=== PATIENT | female | born 1960 | race Caucasian/White ===

== ENCOUNTER → 2017-04-23 | Outpatient (CLI) | payer MEDICARE, OTHER ==
--- NOTE | 2017-04-23 17:33 | PN ---
This patient is a 57-year-old female coming in for a CPAP compliancy check. The patient was diagnosed having mild obstructive sleep apnea with an AHI of 8.2. However, based on her increased sleep fragmentation and increased chronic hypersomnia and sleepiness with an Corsicana score of 22, I decided to give the patient a CPAP trial. She underwent a CPAP titration, and the titration itself was not absolutely successful, knowing that the patient continued to have obstructive hypopneas. At any rate, she was given an Auto CPAP unit with a minimum pressure of 6, maximum pressure of 20, and today she is coming in for a compliancy check. She was unable to tolerate the CPAP therapy over the past 30 days. She claims that the pressure is too low and it is making her suffocate. I checked her P90 pressure, and this is at 8.0. No leaks around the mask. While on treatment, her AHI is down to 1. I think the issue is the low CPAP pressure which is making this patient quite uncomfortable, affecting her overall tolerability and compliance. Note that her CPAP titration also showed significant periodic limb movements. The patient is known to have restless leg syndrome and she is currently on a combination of clonazepam and Neurontin. She is morbidly obese. Her weight is stable at 227 to 229. She is willing to restart CPAP therapy as long as the pressure is higher and she feels more comfortable. She is using medium-sized AirFit P10 nasal pillows. HER CURRENT VITALS: BP is 139/95, pulse 92, respiration 16. Corsicana score is 9. Saturation 96% on room air. Temperature 97.1. Weight is 227. GENERAL APPEARANCE: Calm, comfortable. No acute distress. HEENT: Negative for JVD. No goiter or neck masses. LUNGS: Diminished breath sounds bilaterally; otherwise clear. HEART: Sounds are regular rate and rhythm. Normal S1, S2. No murmurs. ABDOMEN: Soft and nontender. EXTREMITIES: No edema. No cyanosis or clubbing. IMPRESSION: 1. Symptomatic obstructive sleep apnea; AHI of 8.2. 2. Severe sleep fragmentation with frequent nocturnal arousals secondary to above. 3. Severe periodic limb movements/restless leg syndrome. 4. Obesity. 5. Chronic hypersomnia. Corsicana score of 22. 6. Body mass index of 40.6. 7. Aortic valve replacement. 8. Hypertension. 9. Hyperlipidemia. 10. Hypothyroidism. 11. Bipolar disorder. PLAN: 1. Will increase the CPAP pressure up to 14 cm of water. I reviewed the CPAP titration and decided to proceed with 14 cm. This was tried on this patient in the office, and she felt much more comfortable with that. 2. Continue the same mask interface, which is an AirFit nasal pillow. 3. Weight loss. 4. See me back in 4 weeks for re-evaluation to assess her compliance.
== END | disposition home or self-care (01) ==
LOC: SLEEP 13:08
PROVIDERS: ATTEND Internal Medicine Critical Care Medicine
DX: G47.33 Obstructive sleep apnea (adult) (pediatric) (principal); E66.9 Obesity, unspecified; Z68.41 Body mass index [BMI] 40.0-44.9, adult; G47.13 Recurrent hypersomnia

== ENCOUNTER → 2017-06-04 | Outpatient (CLI) | payer MEDICARE, OTHER ==
--- NOTE | 2017-06-05 05:53 | PN ---
A 57-year-old female who seen me in followup regarding compliancy for sleep apnea. As mentioned earlier, the patient was significantly symptomatic and she was having sleep fragmentation and chronic hypersomnia and sleepiness despite low severity of obstructive sleep apnea. She was found only to have an AHI of 8.2. I gave her a CPAP trial and the patient underwent CPAP titration. The titration itself was not significantly completely successful and the patient was given an auto CPAP unit with a minimum pressure of 6 and a maximum pressure of 20. Upon subsequent followup on 04/23/2017, the patient's ( ) pressure was 8. No leaks around the mass, however, the patient reported that the pressure being delivered was very low and she was having a feeling of suffocation. I re-evaluated the patient and I also checked the CPAP titration again. I put the patient on a CPAP pressure of 14 cm of water. Clinically, the patient is feeling much better. She states that the pressure adjustments have helped her be much, much more compliant and apparently she has been sleeping much better waking up alert and refreshed during the day. No feeling of suffocation or low pressure, however, the CPAP compliancy date does not reflect what the patient said. In fact, she has been contacted by the DME and another CPAP titration was requested to requalify this patient for CPAP therapy. The patient tells me that she recently moved from [place] to [facility] and during the move the patient forgot her CPAP machine and at one point it got lost by the movers and she was unable to utilize it for a total of 2 weeks. Currently, her CPAP compliance data on the machine shows an average use of 2.3 hours per night with an AHI of less than 5. Despite all this, the patient reports that she is very committed and she wants to continue the treatment and she will be sure to be using her CPAP machine if she was given the opportunity to do so. HER CURRENT VITALS: Her blood pressure 134/85, pulse 96, respirations 16, temperature 98.2, saturation 97% on room air. Weight is 222. Height is 5 feet 3 inches. GENERAL APPEARANCE: Calm and comfortable. HEENT showed crowding posterior pharynx with no goiter or neck masses. LUNGS: Clear to auscultation. HEART: Sounds regular rate and rhythm. Normal S1, S2. No S3, no S4, no murmurs. ABDOMEN: Soft, nontender. No organomegaly. EXTREMITIES: No edema, cyanosis or clubbing. IMPRESSION: 1. Symptomatic obstructive sleep apnea, AHI of 8.2. The patient has mild obstructive sleep apnea, however, she is quite symptomatic. Currently, she is on CPAP pressure of 14 cm of water. 2. Severe sleep fragmentation and frequent nocturnal arousals secondary to above. 3. Poor CPAP compliancy for the reasons mentioned above. 4. Severe periodic limb movements. 5. Chronic hypersomnia. 6 Garber score of 22. 7. Obesity. Body mass index 40.6. 8. Aortic valve replacement. 9. Hypertension. 10. Hyperlipidemia. 11. Hypothyroidism. 12. Bipolar disorder. PLAN: The patient has already been set up for another CPAP titration to requalify for CPAP use. This will be done on June 19, 2017. Meanwhile keep the patient at a pressure of 14 cm of water. No adjustments will be done today. I will see her back for a compliancy check in July after the CPAP titration has been done and completed. BEL
== END ==
LOC: SLEEP 13:44
PROVIDERS: ATTEND Internal Medicine Critical Care Medicine
DX: G47.33 Obstructive sleep apnea (adult) (pediatric) (principal); G47.61 Periodic limb movement disorder; E66.9 Obesity, unspecified; I10 Essential (primary) hypertension; E78.5 Hyperlipidemia, unspecified; E03.9 Hypothyroidism, unspecified; F31.9 Bipolar disorder, unspecified; Z95.2 Presence of prosthetic heart valve; Z68.41 Body mass index [BMI] 40.0-44.9, adult

== ENCOUNTER 2017-08-03 01:11 | Emergency (ER) | payer MEDICARE, OTHER ==
[2017-08-03 01:19] VITALS: TEMP 98.2
[2017-08-03] MEDS ORDERED: MORPHINE SULFATE 4 MG/ML SYRINGE IV STA (01:36)
--- NOTE | 2017-08-03 01:39 | ED ---
General Adult HPI - General Chief complaint: Extremity Problem,Nontraumatic Stated complaint: Possible leg clot Time Seen by Provider: 08/03/17 01:26 Source: patient, RN notes reviewed Mode of arrival: ambulatory Limitations: no limitations - History of Present Illness Initial comments: Patient is a pleasant 57-year-old female presenting to the emergency Department with right posterior leg pain. Area involvement is the right popliteal region. Patient has had discomfort gradually increased over the past year. Discomfort has been worse the past 3 days. Patient states she was diagnosed with superficial vein clots one year ago in her foot. Patient believes that extended to her calf and now are behind the calf. Patient does have a history of clotting disorder. Patient does have history of heart valve. Patient is on Coumadin. Last level was checked 3 weeks ago and was low. There was adjustments however patient has not had her level checked since he adjustments. No chest pain or dyspnea. - Related Data Home Medications Medication Instructions Recorded Confirmed Cholecalciferol [Vitamin D3] 2,000 unit PO DAILY 06/04/16 07/24/16 Fenofibrate Nanocrystallized 145 mg PO 06/04/16 07/24/16 [Tricor] Folic Acid 1 mg PO DAILY 06/04/16 07/24/16 Insulin Glargine,Hum.rec.anlog 30 unit SQ 06/04/16 07/24/16 [Lantus Solostar] Insulin Glargine,Hum.rec.anlog 35 unit SQ [facility] 06/04/16 07/24/16 [Lantus Solostar] Levothyroxine Sodium [Synthroid] 100 mcg PO [facility] 06/04/16 07/24/16 Metoprolol Tartrate [Lopressor] 25 mg PO 06/04/16 07/24/16 Metoprolol Tartrate [Lopressor] 50 mg PO [facility] 06/04/16 07/24/16 Omeprazole 20 mg PO [facility] 06/04/16 07/24/16 Venlafaxine HCl ER [Effexor XR] 300 mg PO DAILY 06/04/16 07/24/16 clonazePAM [KlonoPIN] 1 mg PO BID PRN 06/04/16 07/24/16 Atorvastatin [Lipitor] 80 mg PO 07/20/16 07/24/16 Cyclobenzaprine [Flexeril] 10 mg PO Q8H PRN 07/20/16 07/24/16 Diclofenac Sodium [Voltaren] 50 mg PO BID 07/20/16 07/24/16 Fluticasone Nasal [place] [Flonase 2 spray EA NOSTRIL DAILY 07/20/16 07/24/16 Nasal [place]] Gabapentin [Neurontin] 300 mg PO Q12H 07/20/16 07/24/16 Insulin Aspart [NovoLOG Flexpen] 20 units SQ AC-TID 07/20/16 07/24/16 Naproxen [Naprosyn] 250 mg PO Q12H PRN 07/20/16 07/24/16 traMADol HCL [Ultram] 50 - 100 mg PO Q8H PRN 07/20/16 07/24/16 Warfarin [Coumadin] 7.5 mg PO DAILY 07/27/16 07/27/16 Previous Rx's Medication Instructions Recorded Hydrocodone/Acetaminophen [[place] 2 each PO Q6HR PRN #20 tab 07/20/16 5-325] OLANZapine [ZyPREXA] 20 mg PO HS #60 tab 07/27/16 Allergies Allergy/AdvReac Type Severity Reaction Status Date / Time codeine AdvReac Nausea Verified 07/24/16 07:10 Review of Systems ROS Statement: Those systems with pertinent positive or pertinent negative responses have been documented in the HPI. ROS Other: All systems not noted in ROS Statement are negative. Constitutional: Denies: fever Eyes: Denies: eye pain ENT: Denies: ear pain Respiratory: Denies: cough Cardiovascular: Denies: chest pain Endocrine: Denies: fatigue Gastrointestinal: Denies: abdominal pain Genitourinary: Denies: dysuria Musculoskeletal: Denies: back pain Skin: Denies: rash Neurological: Denies: weakness Past Medical History Past Medical History: Diabetes Mellitus, GERD/Reflux, Hyperlipidemia, Hypertension, Thyroid Disorder Additional Past Medical History / Comment(s): Rheumatic fever when she was 11. Scar tissue remains on the heart, cyst on lt. ovary History of Any Multi-Drug Resistant Organisms: None Reported Past Surgical History: Appendectomy, Cardiac Valve Replacement Past Anesthesia/Blood Transfusion Reactions: Previous Problems w/ Anesthesia Additional Past Anesthesia/Blood Transfusion Reaction / Comment(s): Stopped breathing when a EGD was done Past Psychological History: Anxiety, Bipolar Smoking Status: Never smoker Past Alcohol Use History: None Reported Past Drug Use History: None Reported - Past Family History Father Additional Family Medical History / Comment(s): Bipolar and ETOH abuse Mother Additional Family Medical History / Comment(s): ETOH abuse General Exam Limitations: no limitations General appearance: alert, in no apparent distress Head exam: Present: atraumatic Eye exam: Present: normal appearance, PERRL ENT exam: Present: normal oropharynx Neck exam: Present: normal inspection Respiratory exam: Present: normal lung sounds bilaterally Cardiovascular Exam: Present: regular rate, normal rhythm, systolic murmur Expanded Peripheral pulses: 2+: Dorsalis Pedis (R), Dorsalis Pedis (L) GI/Abdominal exam: Present: soft. Absent: tenderness Extremities exam: Present: tenderness (Right popliteal region with tenderness) Neurological exam: Present: alert Psychiatric exam: Present: normal affect, normal mood Skin exam: Present: normal color Course Vital Signs 08/03/17 01:15 Temperature 98.2 F Pulse Rate 77 Respiratory 18 Rate Blood Pressure 137/82 O2 Sat by Pulse 95 Oximetry Medical Decision Making - Medical Decision Making Patient reevaluated and updated. Patient advised to hold Coumadin the next 2 days and have it rechecked on Saturday. - Lab Data Result diagrams: 08/03/17 02:00 08/03/17 02:00 Lab Results 08/03/17 08/03/17 08/03/17 Range/Units 02:00 02:00 02:00 WBC 5.6 (3.8-10.6) k/uL RBC 3.90 (3.80-5.40) m/uL Hgb 11.6 (11.4-16.0) gm/dL Hct 32.4 L (34.0-46.0) % MCV 83.0 (80.0-100.0) fL MCH 29.8 (25.0-35.0) pg MCHC 35.9 (31.0-37.0) g/dL RDW 14.7 (11.5-15.5) % Plt Count 247 (150-450) k/uL Neutrophils % 63 % Lymphocytes % 25 % Monocytes % 5 % Eosinophils % 2 % Basophils % 1 % Neutrophils # 3.5 (1.3-7.7) k/uL Lymphocytes # 1.4 (1.0-4.8) k/uL Monocytes # 0.3 (0-1.0) k/uL Eosinophils # 0.1 (0-0.7) k/uL Basophils # 0.1 (0-0.2) k/uL Hyperchromasia Slight PT 70.3 H (9.0-12.0) sec INR 6.9 H* (<1.2) APTT 53.2 H (22.0-30.0) sec Sodium 137 (137-145) mmol/L Potassium 3.4 L (3.5-5.1) mmol/L Chloride 102 (98-107) mmol/L Carbon Dioxide 23 (22-30) mmol/L Anion Gap 12 mmol/L BUN 16 (7-17) mg/dL Creatinine 0.90 (0.52-1.04) mg/dL Est GFR (MDRD) Af Amer >60 (>60 ml/min/1.73 sqM) Est GFR (MDRD) Non-Af >60 (>60 ml/min/1.73 sqM) Glucose 120 H (74-99) mg/dL Calcium 9.0 (8.4-10.2) mg/dL Total Bilirubin 0.4 (0.2-1.3) mg/dL AST 38 H (14-36) U/L ALT 49 (9-52) U/L Total Protein 6.7 (6.3-8.2) g/dL Albumin 4.0 (3.5-5.0) g/dL - Radiology Data Radiology results: report reviewed (Ultrasound negative for DVT. 2.6 cm collection in the popliteal soft tissue, likely Montano's cyst.) Disposition Clinical Impression: Bakers cyst Disposition: HOME SELF-CARE Condition: Stable Instructions: Bakers Cyst (ED) Additional Instructions: Please follow-up with primary care physician in the beginning of the week. Have your Coumadin level checked on Saturday. Hold Coumadin Saturday and Saturday. Return for fever, increased pain, swelling, chest pain or difficulty breathing , worsening symptoms or other concerns. Referrals: Nonstaff,Physician [REFERRING] - 1-2 days Hitesh Romero III, MD [STAFF PHYSICIAN] - 1-2 days Dahlia Katz DO [REFERRING] - 1-2 days Time of Disposition: 02:44
--- NOTE | 2017-08-03 02:08 | US ---
EXAM: US Duplex Right Lower Extremity Veins CLINICAL HISTORY: Reason: Pain TECHNIQUE: Real-time ultrasound scan of the veins of the right lower extremity with color Doppler flow, spectral waveform analysis and compression. COMPARISON: 07/20/16 FINDINGS: Deep veins: Unremarkable. No DVT in the visualized common femoral, femoral, proximal deep femoral or popliteal veins. The veins are compressible with normal color flow and augmentation. Superficial veins: Unremarkable. No thrombus in the visualized great saphenous vein. Soft tissues: Incidental note of a 2.6 cm collection in the popliteal soft tissues, likely a Montano's cyst. IMPRESSION: No acute findings.
[2017-08-03 02:15] LABS: Basophils # (A) 0.1 k/uL (0-0.2); Basophils % (A) 1 %; CH 31.3; Eosinophils # (A) 0.1 k/uL (0-0.7); Eosinophils % (A) 2 %; HCT 32.4 % (34.0-46.0); HDW 3.23; HGB 11.6 gm/dL (11.4-16.0); Hyperchromasia Slight; Luc # (Auto) 0.24; Luc % (Auto) 4; Lymphocytes # (A) 1.4 k/uL (1.0-4.8); Lymphocytes % (A) 25 %; MCH 29.8 pg (25.0-35.0); MCHC 35.9 g/dL (31.0-37.0); Mean Platelet Volume 6.8; Monocytes # (A) 0.3 k/uL (0-1.0); Monocytes % (A) 5 %; Neutrophils # (A) 3.5 k/uL (1.3-7.7); Neutrophils % (A) 63 %; RDW 14.7 % (11.5-15.5); WBC 5.6 k/uL (3.8-10.6); WBC (Perox) 5.78
[2017-08-03 02:24] LABS: Partial Thromboplastin Time 53.2 sec (22.0-30.0); Prothrombin Time 70.3 sec (9.0-12.0)
[2017-08-03 02:31] LABS: INR 6.9 (<1.2)
[2017-08-03 02:38] LABS: ALT 49 U/L (9-52); AST 38 U/L (14-36); Blood Urea Nitrogen 16 mg/dL (7-17); Carbon Dioxide 23 mmol/L (22-30); Chloride 102 mmol/L (98-107); Glucose 120 mg/dL (74-99); Non-African American GFR(MDRD) >60 (>60 ml/min/1.73 sqM); Total Bilirubin 0.4 mg/dL (0.2-1.3); Total Protein 6.7 g/dL (6.3-8.2)
[2017-08-03 02:39] LABS: Anion Gap 12 mmol/L; Potassium 3.4 mmol/L (3.5-5.1); Sodium 137 mmol/L (137-145)
[2017-08-03] MEDS ORDERED: PHYTONADIONE ORAL 5 MG/5 ML ORAL.SYRG PO STA (02:42)
[2017-08-03 02:54] LABS: Alkaline Phosphatase 88 U/L (38-126)
[2017-08-03 03:05] VITALS: BP 123/68; PULSE 71; RESP 16
== END 2017-08-03 03:05 | disposition home or self-care (01) ==
LOC: EC 01:11
DX: M71.21 Synovial cyst of popliteal space [Baker], right knee (principal); R01.1 Cardiac murmur, unspecified; E78.5 Hyperlipidemia, unspecified; I10 Essential (primary) hypertension; E11.9 Type 2 diabetes mellitus without complications; K21.9 Gastro-esophageal reflux disease without esophagitis; E07.9 Disorder of thyroid, unspecified; D68.4 Acquired coagulation factor deficiency; F41.9 Anxiety disorder, unspecified; M79.661 Pain in right lower leg; Z79.01 Long term (current) use of anticoagulants; Z79.1 Long term (current) use of non-steroidal anti-inflammatories (NSAID); Z79.4 Long term (current) use of insulin; Z79.51 Long term (current) use of inhaled steroids; Z79.899 Other long term (current) drug therapy; Z88.5 Allergy status to narcotic agent; Z95.2 Presence of prosthetic heart valve
CPT/HCPCS: 99284 ×2; 96374 ×2; 36415; 80053; 85025; 85610; 85730; 93971; J2270

== ENCOUNTER → 2017-09-30 | Outpatient (CLI) | payer MEDICARE, OTHER ==
[~2017-09-30] MED LIST: REGADENOSON 0.4 MG/5 ML SYRINGE IV ONE
--- NOTE | 2017-09-30 11:46 | ECHOF ---
Referral Reason:Z95.2 Presence of prosthetic heart valve MEASUREMENTS -------- HEIGHT: 165.1 cm WEIGHT: 99.8 kg BP: 149/89 RVIDd: 2.9 cm (< 3.3) IVSd: 1.1 cm (0.6 - 1.1) LVIDd: 5.2 cm (3.9 - 5.3) LVPWd: 1.2 cm (0.6 - 1.1) IVSs: 1.8 cm LVIDs: 3.2 cm LVPWs: 1.7 cm LAESV Index (A-L): 26.24 ml/m Ao Diam: 2.9 cm (2.0 - 3.7) LA Diam: 4.1 cm (2.7 - 3.8) MV E Lance: 1.13 m/s MV DecT: 228 ms MV A Lance: 0.54 m/s MV E/A Ratio: 2.10 AV maxP.33 mmHg AV meanP.05 mmHg RAP: 5.00 mmHg RVSP: 23.29 mmHg FINDINGS -------- Sinus rhythm. This was a technically adequate study. The left ventricular size is normal. There is borderline concentric left ventricular hypertrophy. Overall left ventricular systolic function is normal with, an EF between 55 - 60 %. The right ventricle is normal in size and function. Normal LA size by volume 22+/-6 ml/m2. RA appears enlarged. There is mild regurgitation of the bioprosthetic aortic valve. The mitral valve is normal. Mild mitral regurgitation is present. Trace tricuspid regurgitation present. Right ventricular systolic pressure is normal at < 35 mmHg. There is no evidence of pulmonary hypertension. The pulmonic valve was not well visualized. There is no pulmonic regurgitation present. The aortic root size is normal. Normal inferior vena cava with normal inspiratory collapse consistent with estimated right atrial pre ssure of 5 mmHg. There is no pericardial effusion. CONCLUSIONS -------- 1. Sinus rhythm. 2. This was a technically adequate study. 3. There is borderline concentric left ventricular hypertrophy. 4. Overall left ventricular systolic function is normal with, an EF between 55 - 60 %. 5. Normal LA size by volume 22+/-6 ml/m2. 6. RA appears enlarged. 7. There is mild regurgitation of the bioprosthetic aortic valve. 8. Mild mitral regurgitation is present. 9. Trace tricuspid regurgitation present. 10. Right ventricular systolic pressure is normal at < 35 mmHg. 11. The pulmonic valve was not well visualized. 12. There is no pulmonic regurgitation present. 13. The aortic root size is normal. 14. There is no pericardial effusion. ASSISTANT BOILER OPERATOR: Alonso Espinal RDCS
--- NOTE | 2017-09-30 12:48 | EST ---
EXERCISE STRESS AGE: 57 SEX: F HT: 5'5" WT: 220 PROTOCOL: Lexiscan Cardiolite Stress Test HEART RATE REST: 63 BLOOD PRESSURE REST: 132/82 MAXIMUM HEART RATE ACHIEVED: 89 MAXIMUM BLOOD PRESSURE: 132/82 85% MPHR: 140 100% MPHR: 164 INDICATIONS: Preoperative physical. CLINICAL INFORMATION: Baseline rhythm is sinus mechanism, rate 63, normal axis and intervals. Normal electrocardiogram. Baseline blood pressure 132/82. Patient was given an injection of Lexiscan. Electrocardiographic monitoring revealed no evidence of diagnostic ischemic ST deviation. Cardiolite was injected per protocol. CONCLUSION: 1. Nondiagnostic electrocardiograph stress testing. 2. Nuclear images will be reported separately. MMODL / IJN: [id number] /
--- NOTE | 2017-09-30 15:22 | NM ---
EXAMINATION TYPE: NM stress lexiscan cardiolite DATE OF EXAM: 09/30/2017 COMPARISON: NONE HISTORY: Prosthetic cardiac valve and chest pain TECHNIQUE: After the intravenous administration of 10.1 mCi Tc 99m Sestamibi - Cardiolite resting SP ECT images acquired 45 minutes post injection. The patient received 0.4mg Lexiscan, 30.0 mCi Tc 99m Sestamibi - Stress images obtained [address] injection FINDINGS: Review of stress and rest SPECT images demonstrates no distinct reversible perfusion abnormality. Fi xed defect is seen of the ventricular apex which may relate to physiologic apical thinning or prior i nfarct in the distribution of the left anterior descending coronary artery distally. Gated analysis s hows normal wall motion with an estimated left ventricular ejection fraction of 45 %. TID of 1.17 IMPRESSION: 1. No scintigraphic evidence for reversible ischemia. 2. Estimated left ventricular ejection fraction of 45%. 3. Transient ischemic dilatation calculated at 1.17, upper limits of normal. This could represent car diomyopathy or balanced 3 vessel ischemia. 4. Apical fixed defect that may represent prior LAD and vessel infarct sequela versus physiologic api neha thinning.
== END | disposition home or self-care (01) ==
LOC: RADNMMAIN 09:02
PROVIDERS: ATTEND Family Medicine
DX: Z48.812 Encounter for surgical aftercare following surgery on the circulatory system (principal); I08.3 Combined rheumatic disorders of mitral, aortic and tricuspid valves; Z95.2 Presence of prosthetic heart valve
CPT/HCPCS: 93017; 93306; 78452; A9500; J2785

== ENCOUNTER → 2017-10-07 | Outpatient (CLI) | payer MEDICARE, OTHER ==
[2017-10-07 10:37] LABS: ALT 57 U/L (9-52); AST 40 U/L (14-36); Alkaline Phosphatase 60 U/L (38-126); Anion Gap 8 mmol/L; Blood Urea Nitrogen 12 mg/dL (7-17); Calcium 9.1 mg/dL (8.4-10.2); Carbon Dioxide 25 mmol/L (22-30); Chloride 102 mmol/L (98-107); Cholesterol 142 mg/dL (<200); Glucose 155 mg/dL (74-99); HDL Cholesterol 43 mg/dL (40-60); Non-African American GFR(MDRD) >60 (>60 ml/min/1.73 sqM); Potassium 4.9 mmol/L (3.5-5.1); Sodium 135 mmol/L (137-145); Total Bilirubin 0.3 mg/dL (0.2-1.3); Total Protein 6.7 g/dL (6.3-8.2)
[2017-10-07 10:42] LABS: Basophils # (A) 0.1 k/uL (0-0.2); Basophils % (A) 1 %; CH 29.8; CHCM 34.8; Eosinophils # (A) 0.1 k/uL (0-0.7); Eosinophils % (A) 2 %; HCT 34.2 % (34.0-46.0); HDW 3.27; HGB 11.6 gm/dL (11.4-16.0); Luc # (Auto) 0.11; Luc % (Auto) 2; Lymphocytes # (A) 0.8 k/uL (1.0-4.8); Lymphocytes % (A) 12 %; MCH 29.1 pg (25.0-35.0); MCHC 33.8 g/dL (31.0-37.0); MCV 86.1 fL (80.0-100.0); Mean Platelet Volume 6.5; Monocytes # (A) 0.4 k/uL (0-1.0); Monocytes % (A) 6 %; Neutrophils # (A) 5.2 k/uL (1.3-7.7); Neutrophils % (A) 79 %; RBC 3.97 m/uL (3.80-5.40); RDW 13.4 % (11.5-15.5); WBC 6.6 k/uL (3.8-10.6)
[2017-10-07 10:45] LABS: Partial Thromboplastin Time 32.8 sec (22.0-30.0)
[2017-10-07 12:30] LABS: Appearance,Urine Clear (Clear); Bacteria,Urine Rare /hpf; Bilirubin,Urine Negative (Negative); Glucose,Urine (UA) Negative (Negative); Ketones,Urine Negative (Negative); Leukocyte Esterase,Urine Trace (Negative); Nitrite,Urine Negative (Negative); PH, Urine 5.5 (5.0-8.0); Particle Count 379; Protein,Urine Negative (Negative); RBC,Urine <1 /hpf (0-5); Specific Gravity,Urine 1.004 (1.001-1.035); Squamous Epithelial Cell,Urine <1 /hpf (0-4); UA Billing (MACRO vs. MICRO) MICRO; Urobilinogen,Urine <2.0 mg/dL (<2.0); WBC,Urine 3 /hpf (0-5)
[2017-10-07 13:01] LABS: INR 2.6 (<1.2); Prothrombin Time 25.1 sec (9.0-12.0)
== END | disposition home or self-care (01) ==
LOC: LABWHC1 09:15
PROVIDERS: ATTEND Family Medicine
DX: F25.8 Other schizoaffective disorders (principal)
CPT/HCPCS: 36415; 80053; 80061; 81001; 84439; 84443; 85025; 85610; 85730

== ENCOUNTER 2017-12-14 14:54 | Emergency (ER) | payer MEDICARE, OTHER ==
[2017-12-14 15:38] VITALS: BP 143/68; PULSE 92; RESP 20; TEMP 98
--- NOTE | 2017-12-14 16:39 | ED ---
General Adult HPI - General Chief complaint: Skin/Abscess/Foreign Body Stated complaint: RASH Time Seen by Provider: 12/14/17 15:47 Source: patient Mode of arrival: ambulatory Limitations: no limitations - History of Present Illness Initial comments: patient is a 57-year-old female who presents with her daughter with a chief complaint of urticaria and skin lesions. The patient has a significant past medical history of a mechanical heart valve, and diabetes. He states that this is been going on for about 3-5 days. She recently had the cats removed from her house, the cats were evaluated by a vet who states they had fleas, ticks, or mites. the patient also notes that there were mice found inside her house. She states that everybody within the household has the same symptoms. Patient states that the lesions are itchy, which he scratches them refilled fluid and drained. Patient states she is on Coumadin, and which scratches them they bleed for about an hour. - Related Data Home Medications Medication Instructions Recorded Confirmed Cholecalciferol [Vitamin D3] 2,000 unit PO DAILY 06/04/16 12/14/17 Fenofibrate Nanocrystallized 145 mg PO 06/04/16 12/14/17 [Tricor] Folic Acid 1 mg PO DAILY 06/04/16 12/14/17 Insulin Glargine,Hum.rec.anlog 30 unit SQ [facility] 06/04/16 12/14/17 [Lantus Solostar] Insulin Glargine,Hum.rec.anlog 35 unit SQ 06/04/16 12/14/17 [Lantus Solostar] Levothyroxine Sodium [Synthroid] 100 mcg PO [facility] 06/04/16 12/14/17 Metoprolol Tartrate [Lopressor] 25 mg PO 06/04/16 12/14/17 Metoprolol Tartrate [Lopressor] 50 mg PO QA 06/04/16 12/14/17 Omeprazole 20 mg PO -[facility] 06/04/16 12/14/17 Venlafaxine HCl ER [Effexor XR] 300 mg PO DAILY 06/04/16 12/14/17 clonazePAM [KlonoPIN] 1 mg PO BID PRN 06/04/16 12/14/17 Atorvastatin [Lipitor] 40 mg PO BID 07/20/16 12/14/17 Gabapentin [Neurontin] 300 mg PO Q12H 07/20/16 12/14/17 Insulin Aspart [NovoLOG Flexpen] 20 units SQ [facility] 07/20/16 12/14/17 Naproxen [Naprosyn] 250 mg PO Q12H PRN 07/20/16 12/14/17 Warfarin [Coumadin] 7.5 mg PO DIRECTED 07/27/16 12/14/17 Previous Rx's Medication Instructions Recorded OLANZapine [ZyPREXA] 20 mg PO HS #60 tab 07/27/16 Sulfamethox-Tmp 800-160Mg [Bactrim 1 tab PO Q12HR #10 tab 12/14/17 DS 800-160 mg] hydrOXYzine HCL [Atarax] 50 mg PO QID PRN #20 tab 12/14/17 Allergies Allergy/AdvReac Type Severity Reaction Status Date / Time codeine AdvReac Nausea Verified 12/14/17 16:05 Review of Systems ROS Statement: Those systems with pertinent positive or pertinent negative responses have been documented in the HPI. ROS Other: All systems not noted in ROS Statement are negative. Skin: Reports: lesions, pruritus Past Medical History Past Medical History: Diabetes Mellitus, GERD/Reflux, Hyperlipidemia, Hypertension, Thyroid Disorder Additional Past Medical History / Comment(s): Rheumatic fever when she was 11. Scar tissue remains on the heart, cyst on lt. ovary History of Any Multi-Drug Resistant Organisms: None Reported Past Surgical History: Appendectomy, Cardiac Valve Replacement Past Anesthesia/Blood Transfusion Reactions: Previous Problems w/ Anesthesia Additional Past Anesthesia/Blood Transfusion Reaction / Comment(s): Stopped breathing when a EGD was done Past Psychological History: Anxiety, Bipolar Smoking Status: Never smoker Past Alcohol Use History: None Reported Past Drug Use History: None Reported - Past Family History Father Additional Family Medical History / Comment(s): Bipolar and ETOH abuse Mother Additional Family Medical History / Comment(s): ETOH abuse General Exam Limitations: no limitations General appearance: alert, in no apparent distress Head exam: Present: atraumatic, normocephalic Eye exam: Present: normal appearance ENT exam: Present: normal exam Neck exam: Present: normal inspection Respiratory exam: Present: normal lung sounds bilaterally. Absent: respiratory distress Cardiovascular Exam: Present: regular rate, normal rhythm GI/Abdominal exam: Present: soft. Absent: distended, tenderness Rectal exam: Present: deferred Extremities exam: Present: normal inspection Back exam: Present: normal inspection Neurological exam: Present: alert, oriented X3 Psychiatric exam: Present: normal affect, normal mood Skin exam: Present: warm, dry, intact, other (patient has small lesions over her upper, and lower extremities. There is some lesions on her back and mid section. These lesions are consistent with bug bites. There are no lesions that appear to be acutely infected. ) Course Vital Signs 12/14/17 15:36 Temperature 98.0 F Pulse Rate 92 Respiratory 20 Rate Blood Pressure 143/68 O2 Sat by Pulse 99 Oximetry Medical Decision Making - Medical Decision Making patient presents with a chief complaint of skin lesions and urticaria. History of physical examination are most consistent with bug bites likely from the catheter guinea pig that live inside her house. The patient further states that all the people inside of her house have the same symptoms. At this time, no lesions look acutely infected. Given the fact that the patient has a mechanical heart valve she'll be treated with Bactrim for 5 days. She was instructed on cleaning all surfaces with bleach, and wash all linens and clothes. The patient was further instructed to contact an opera singer. At this time, patient is stable for discharge and outpatient management. She is instructed to follow-up with her primary care doctor or return to the emergency department if her symptoms worsen or change. Disposition Clinical Impression: Bug bite Disposition: HOME SELF-CARE Condition: Good Instructions: Insect Bite or Sting (ED) Referrals: Cesar Betancourt Jr, DO [Primary Care Provider] - 1-2 days
== END 2017-12-14 16:53 | disposition home or self-care (01) ==
LOC: EC 14:54
DX: S60.562A Insect bite (nonvenomous) of left hand, initial encounter (principal); S60.561A Insect bite (nonvenomous) of right hand, initial encounter; S80.862A Insect bite (nonvenomous), left lower leg, initial encounter; S80.861A Insect bite (nonvenomous), right lower leg, initial encounter; E11.9 Type 2 diabetes mellitus without complications; K21.9 Gastro-esophageal reflux disease without esophagitis; E78.5 Hyperlipidemia, unspecified; I10 Essential (primary) hypertension; E07.9 Disorder of thyroid, unspecified; F31.9 Bipolar disorder, unspecified; F41.9 Anxiety disorder, unspecified; Z88.5 Allergy status to narcotic agent; Z79.4 Long term (current) use of insulin; Z79.01 Long term (current) use of anticoagulants; Z79.899 Other long term (current) drug therapy; W57.XXXA Bitten or stung by nonvenomous insect and other nonvenomous arthropods, initial encounter
CPT/HCPCS: 99282

== ENCOUNTER 2018-07-31 12:07 | Emergency (ER) | payer MEDICARE, OTHER ==
--- NOTE | 2018-07-31 13:33 | XR ---
EXAMINATION TYPE: XR chest 2V DATE OF EXAM: 07/31/2018 COMPARISON: 06/05/2012 HISTORY: 58-year-old female with chest pain TECHNIQUE: PA and lateral views FINDINGS: Median sternotomy wires are present. Prosthetic cardiac valve. Heart mildly enlarged. Mild elongation thoracic aorta. Diffuse interstitial prominence slightly increased. No consolidation or pleural effu marie. IMPRESSION: Mild cardiomegaly and mild interstitial prominence. Correlate to exclude mild pulmonary vascular alber estion.
[2018-07-31 13:38] LABS: Basophils % (A) 1 %; Eosinophils # (A) 0.1 k/uL (0-0.7); Eosinophils % (A) 1 %; HCT 33.3 % (34.0-46.0); HGB 11.4 gm/dL (11.4-16.0); Lymphocytes # (A) 0.7 k/uL (1.0-4.8); Lymphocytes % (A) 9 %; MCH 28.7 pg (25.0-35.0); MCHC 34.2 g/dL (31.0-37.0); Mean Platelet Volume 6.9; Monocytes # (A) 0.3 k/uL (0-1.0); Monocytes % (A) 3 %; Neutrophils # (A) 6.3 k/uL (1.3-7.7); Neutrophils % (A) 85 %; Platelet Count 227 k/uL (150-450); RBC 3.96 m/uL (3.80-5.40); WBC 7.4 k/uL (3.8-10.6)
--- NOTE | 2018-07-31 13:45 | ED ---
General Adult HPI - General Chief complaint: Chest Pain Stated complaint: CHEST PAIN Time Seen by Provider: 07/31/18 12:24 Source: patient, RN notes reviewed, old records reviewed Mode of arrival: wheelchair Limitations: no limitations - History of Present Illness Initial comments: This is a 58-year-old female the ER for evaluation. Patient comes in for evaluation regarding chest pain, chest pain is nonspecific. Patient does admit to very much anxiety. Patient states that these are revolves around a history of a mechanical heart valve issue. She is concern for something bad happening in her chest she had chest pain started after doing some activity earlier last night into today. Otherwise patient is relatively asymptomatic currently she is just more anxious - Related Data Home Medications Medication Instructions Recorded Confirmed Cholecalciferol [Vitamin D3] 2,000 unit PO DAILY 06/04/16 07/31/18 Fenofibrate Nanocrystallized 145 mg PO HS 06/04/16 07/31/18 [Tricor] Folic Acid 1 mg PO DAILY 06/04/16 07/31/18 Levothyroxine Sodium [Synthroid] 100 mcg PO AC-BRKFST 06/04/16 07/31/18 Omeprazole 20 mg PO AC-BRKFST 06/04/16 07/31/18 Venlafaxine HCl ER [Effexor XR] 300 mg PO DAILY 06/04/16 07/31/18 Atorvastatin [Lipitor] 80 mg PO DAILY 07/20/16 07/31/18 Insulin Aspart [NovoLOG Flexpen] 25 units SQ AC-TID 07/20/16 07/31/18 Insulin Glargine,Hum.rec.anlog 35 unit SQ BID 07/31/18 07/31/18 [Basaglar Kwikpen U-100] OLANZapine 20 mg PO DAILY 07/31/18 07/31/18 Allergies Allergy/AdvReac Type Severity Reaction Status Date / Time codeine Allergy Rash/Hives Verified 07/31/18 13:47 Review of Systems ROS Statement: Those systems with pertinent positive or pertinent negative responses have been documented in the HPI. ROS Other: All systems not noted in ROS Statement are negative. Past Medical History Past Medical History: Diabetes Mellitus, GERD/Reflux, Hyperlipidemia, Hypertension, Thyroid Disorder Additional Past Medical History / Comment(s): Rheumatic fever when she was 11. Scar tissue remains on the heart, cyst on lt. ovary History of Any Multi-Drug Resistant Organisms: None Reported Past Surgical History: Appendectomy, Cardiac Valve Replacement Past Anesthesia/Blood Transfusion Reactions: Previous Problems w/ Anesthesia Additional Past Anesthesia/Blood Transfusion Reaction / Comment(s): Stopped breathing when a EGD was done Past Psychological History: Anxiety, Bipolar Smoking Status: Never smoker Past Alcohol Use History: None Reported Past Drug Use History: None Reported - Past Family History Father Additional Family Medical History / Comment(s): Bipolar and ETOH abuse Mother Additional Family Medical History / Comment(s): ETOH abuse General Exam Limitations: no limitations General appearance: alert, in no apparent distress Head exam: Present: atraumatic, normocephalic, normal inspection Eye exam: Present: normal appearance, PERRL, EOMI. Absent: scleral icterus, conjunctival injection, periorbital swelling ENT exam: Present: normal exam, mucous membranes moist Neck exam: Present: normal inspection. Absent: tenderness, meningismus, lymphadenopathy Respiratory exam: Present: normal lung sounds bilaterally. Absent: respiratory distress, wheezes, rales, rhonchi, stridor Cardiovascular Exam: Present: regular rate, normal rhythm, normal heart sounds. Absent: systolic murmur, diastolic murmur, rubs, gallop, clicks GI/Abdominal exam: Present: soft, normal bowel sounds. Absent: distended, tenderness, guarding, rebound, rigid Extremities exam: Present: normal inspection, full ROM, normal capillary refill. Absent: tenderness, pedal edema, joint swelling, calf tenderness Back exam: Present: normal inspection Neurological exam: Present: alert, oriented X3, CN II-XII intact Psychiatric exam: Present: normal affect, normal mood Skin exam: Present: warm, dry, intact, normal color. Absent: rash Course Vital Signs 07/31/18 07/31/18 07/31/18 12:12 13:10 13:23 Temperature 98.4 F 98.7 F Pulse Rate 88 86 Pulse Rate [ 86 Left Pulse Oximetery] Respiratory 18 17 18 Rate Blood Pressure 133/89 130/81 O2 Sat by Pulse 96 96 Oximetry 07/31/18 07/31/18 15:07 17:11 Temperature 96.1 F L Pulse Rate 89 62 Pulse Rate [ Left Pulse Oximetery] Respiratory 18 16 Rate Blood Pressure 118/76 126/79 O2 Sat by Pulse 94 L 99 Oximetry EKG Findings - EKG Comments: EKG Findings:: EKG shows sinus rhythm rate of 87, WI 154, QRS 78, QTc 459 Medical Decision Making - Medical Decision Making 58 female the ER for evaluation presents today for evaluation regards to chest pain nonspecific chest pain chest and a sterile doing some activity prior. Patient has negative CTA. Patient can be discharged home - Lab Data Result diagrams: 07/31/18 13:18 07/31/18 13:18 Lab Results 07/31/18 07/31/18 07/31/18 Range/Units 13:18 13:18 13:18 WBC 7.4 (3.8-10.6) k/uL RBC 3.96 (3.80-5.40) m/uL Hgb 11.4 (11.4-16.0) gm/dL Hct 33.3 L (34.0-46.0) % MCV 84.0 (80.0-100.0) fL MCH 28.7 (25.0-35.0) pg MCHC 34.2 (31.0-37.0) g/dL RDW 14.0 (11.5-15.5) % Plt Count 227 (150-450) k/uL Neutrophils % 85 % Lymphocytes % 9 % Monocytes % 3 % Eosinophils % 1 % Basophils % 1 % Neutrophils # 6.3 (1.3-7.7) k/uL Lymphocytes # 0.7 L (1.0-4.8) k/uL Monocytes # 0.3 (0-1.0) k/uL Eosinophils # 0.1 (0-0.7) k/uL Basophils # 0.0 (0-0.2) k/uL PT (9.0-12.0) sec INR (<1.2) APTT (22.0-30.0) sec Sodium 140 (137-145) mmol/L Potassium 4.1 (3.5-5.1) mmol/L Chloride 106 (98-107) mmol/L Carbon Dioxide 23 (22-30) mmol/L Anion Gap 11 mmol/L BUN 23 H (7-17) mg/dL Creatinine 0.83 (0.52-1.04) mg/dL Est GFR (CKD-EPI)AfAm >90 (>60 ml/min/1.73 sqM) Est GFR (CKD-EPI)NonAf 80 (>60 ml/min/1.73 sqM) Glucose 216 H (74-99) mg/dL Calcium 8.7 (8.4-10.2) mg/dL Magnesium 1.3 L (1.6-2.3) mg/dL Total Bilirubin 0.4 (0.2-1.3) mg/dL AST 36 (14-36) U/L ALT 37 (9-52) U/L Alkaline Phosphatase 65 (38-126) U/L Total Creatine Kinase 156 H (30-135) U/L CK-MB (CK-2) 1.8 (0.0-2.4) ng/mL CK-MB (CK-2) Rel Index 1.2 Troponin I <0.012 (0.000-0.034) ng/mL NT-Pro-B Natriuret Pep pg/mL Total Protein 6.8 (6.3-8.2) g/dL Albumin 3.9 (3.5-5.0) g/dL Lipase 210 (23-300) U/L 07/31/18 07/31/18 Range/Units 13:18 13:18 WBC (3.8-10.6) k/uL RBC (3.80-5.40) m/uL Hgb (11.4-16.0) gm/dL Hct (34.0-46.0) % MCV (80.0-100.0) fL MCH (25.0-35.0) pg MCHC (31.0-37.0) g/dL RDW (11.5-15.5) % Plt Count (150-450) k/uL Neutrophils % % Lymphocytes % % Monocytes % % Eosinophils % % Basophils % % Neutrophils # (1.3-7.7) k/uL Lymphocytes # (1.0-4.8) k/uL Monocytes # (0-1.0) k/uL Eosinophils # (0-0.7) k/uL Basophils # (0-0.2) k/uL PT 57.6 H (9.0-12.0) sec INR 6.3 H* (<1.2) APTT 46.1 H (22.0-30.0) sec Sodium (137-145) mmol/L Potassium (3.5-5.1) mmol/L Chloride (98-107) mmol/L Carbon Dioxide (22-30) mmol/L Anion Gap mmol/L BUN (7-17) mg/dL Creatinine (0.52-1.04) mg/dL Est GFR (CKD-EPI)AfAm (>60 ml/min/1.73 sqM) Est GFR (CKD-EPI)NonAf (>60 ml/min/1.73 sqM) Glucose (74-99) mg/dL Calcium (8.4-10.2) mg/dL Magnesium (1.6-2.3) mg/dL Total Bilirubin (0.2-1.3) mg/dL AST (14-36) U/L ALT (9-52) U/L Alkaline Phosphatase (38-126) U/L Total Creatine Kinase (30-135) U/L CK-MB (CK-2) (0.0-2.4) ng/mL CK-MB (CK-2) Rel Index Troponin I (0.000-0.034) ng/mL NT-Pro-B Natriuret Pep 330 pg/mL Total Protein (6.3-8.2) g/dL Albumin (3.5-5.0) g/dL Lipase (23-300) U/L - Radiology Data Radiology results: report reviewed (Chest x-ray CT is negative), image reviewed Disposition Clinical Impression: Chest pain, Bipolar disorder with psychotic features Disposition: HOME SELF-CARE Condition: Good Instructions: Chest Pain (ED) Is patient prescribed a controlled substance at d/c from ED?: No Referrals: Cesar Betancourt Jr, [Primary Care Provider] - 1-2 days
[2018-07-31 13:47] LABS: Partial Thromboplastin Time 46.1 sec (22.0-30.0); Prothrombin Time 57.6 sec (9.0-12.0)
[2018-07-31 13:53] LABS: INR 6.3 (<1.2)
[2018-07-31 13:57] LABS: Creatine Kinase 156 U/L (30-135)
[2018-07-31 14:09] LABS: Creatine Kinase MB 1.8 ng/mL (0.0-2.4); Troponin I <0.012 ng/mL (0.000-0.034)
[2018-07-31 15:03] LABS: ALT 37 U/L (9-52); AST 36 U/L (14-36); Albumin 3.9 g/dL (3.5-5.0); Alkaline Phosphatase 65 U/L (38-126); Anion Gap 11 mmol/L; Blood Urea Nitrogen 23 mg/dL (7-17); Calcium 8.7 mg/dL (8.4-10.2); Carbon Dioxide 23 mmol/L (22-30); Chloride 106 mmol/L (98-107); Glucose 216 mg/dL (74-99); Lipase 210 U/L (23-300); Magnesium 1.3 mg/dL (1.6-2.3); Potassium 4.1 mmol/L (3.5-5.1); Sodium 140 mmol/L (137-145); Total Bilirubin 0.4 mg/dL (0.2-1.3); Total Protein 6.8 g/dL (6.3-8.2)
[2018-07-31 15:09] VITALS: TEMP 96.1
--- NOTE | 2018-07-31 15:45 | CT ---
EXAMINATION TYPE: CT angio chest DATE OF EXAM: 07/31/2018 COMPARISON: CT chest 06/02/2012, chest x-ray 07/31/2018 HISTORY: Mid to left sided chest pain with history of valve replacement CT DLP: 556 mGycm Automated exposure control for dose reduction was used. CONTRAST: CTA scan of the thorax is performed with IV Contrast, patient injected with 100 mL of Isovue 370, pul monary embolism protocol. MIP images are created and reviewed. 3D reconstructed images are created on an independent workstation and reviewed. FINDINGS: Patient is post median sternotomy. LUNGS: The lungs are grossly clear, there is no concerning parenchymal mass or nodule identified. Mi ld interstitial prominence is noted. Interlobular septal pleural septal lines are noted There is no p leural effusion or pneumothorax seen. The tracheobronchial tree is patent. AORTA: Patient is posterior without replacement.. MEDIASTINUM: There is satisfactory enhancement of the pulmonary artery and its branches, there is no CT evidence for pulmonary embolism. There are no greater than 1 cm hilar or mediastinal lymph nodes. No pericardial effusion is seen. OTHER: The liver shows low attenuation suggestive of hepatic steatosis, liver may be enlarged. IMPRESSION: NO EVIDENT PULMONARY EMBOLISM. CORRELATE FOR HEPATIC STEATOSIS, POSSIBLE HEPATOMEGALY. POSTOP CHANGES . ADDITIONAL FINDINGS ABOVE.
[2018-07-31 17:12] VITALS: BP 126/79; PULSE 62; RESP 16
== END 2018-07-31 17:10 | disposition home or self-care (01) ==
LOC: EC 12:07
DX: F31.9 Bipolar disorder, unspecified (principal); R07.9 Chest pain, unspecified; F41.9 Anxiety disorder, unspecified; E11.9 Type 2 diabetes mellitus without complications; K21.9 Gastro-esophageal reflux disease without esophagitis; E78.5 Hyperlipidemia, unspecified; I10 Essential (primary) hypertension; E07.9 Disorder of thyroid, unspecified; Z81.8 Family history of other mental and behavioral disorders; Z95.2 Presence of prosthetic heart valve; Z79.899 Other long term (current) drug therapy; Z79.4 Long term (current) use of insulin; Z88.5 Allergy status to narcotic agent
CPT/HCPCS: 36415; 83880; 80053; 82550; 82553; 83690; 83735; 84484; 85025; 85610; 85730; 71046; 71275; 99285; Q9967

== ENCOUNTER → 2018-09-23 | Outpatient (CLI) | payer MEDICARE, OTHER ==
--- NOTE | 2018-09-23 08:06 | US ---
EXAMINATION TYPE: US pelvic complete DATE OF EXAM: 09/23/2018 COMPARISON: CT CLINICAL HISTORY: R10.2 Pelvic pain. Pt states LLQ pain x 3 years, postmenopausal x 10 years, not on HRT's TECHNIQUE: Transabdominal (TA). Transabdominal sonographic images of the pelvis were acquired. Date of LMP: 10 years ago EXAM MEASUREMENTS: Uterus: 7.9 x 3.9 x 4.5 cm Endometrial Stripe: Right horn= 0.2 cm, Left Horn= 0.2 cm Right Ovary: 1.5 x 0.8 x 1.4 cm Left Ovary: 1.4 x 0.9 x 1.2 cm 1. Uterus: Anteverted Possible uterine anomaly with 2 endometrial cavities seen on image 13, other osborne appeared wnl 2. Endometrium: Right and Left horns appeared appropriate thickness 3. Right Ovary: wnl 4. Left Ovary: wnl 5. Bilateral Adnexa: wnl 6. Posterior cul-de-sac: wnl No abnormality visualized to account for pt's symptoms/ Incidental finding irregular posterior blad esha wall IMPRESSION: 1. 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 Pelvic MRI or hysterosalpingogram could further assess these findings. 2. No abnormal endometrial thickening or adnexal mass.
== END ==
LOC: RADUSWWP 07:07
PROVIDERS: ATTEND Family Medicine
DX: R10.2 Pelvic and perineal pain (principal); Z88.5 Allergy status to narcotic agent
CPT/HCPCS: 76856

== ENCOUNTER → 2018-09-29 | Outpatient (CLI) | payer MEDICARE, OTHER ==
--- NOTE | 2018-09-29 15:27 | FL ---
EXAMINATION TYPE: FL hysterosalpingography DATE OF EXAM: 09/29/2018 HISTORY: Bicornuate uterus Examination was not performed. Bicornuate uterus is noted on ultrasound. Hysterosalpingography is res erved for patients of childbearing age. MRI of the pelvis is recommended given patient's history of p ain and family history of cervical cancer. IMPRESSION: MRI of the pelvis is advised.
== END ==
LOC: RADFLWHC 13:28
PROVIDERS: ATTEND Family Medicine
DX: Z53.9 Procedure and treatment not carried out, unspecified reason (principal)

== ENCOUNTER → 2018-10-21 | Outpatient (CLI) | payer MEDICARE, OTHER ==
--- NOTE | 2018-10-21 12:04 | CT ---
EXAMINATION TYPE: CT pelvis wo con DATE OF EXAM: 10/21/2018 COMPARISON: Ultrasound dated 09/23/2018 HISTORY: Congenital abnormality of the uterus. Automated exposure control for dose reduction was used. Unenhanced CT of the pelvis was performed. The lack of contrast limits evaluation. GI contrast was ut ilized. FINDINGS: The uterus is not enlarged and measures 7.7 x 3.6 cm. No uterine mass is identified. Endometrial stru ctures are not appropriately characterized on this modality. No evidence for ovarian or adnexal mass at this time. Ovaries appear symmetric. No evidence for free fluid. Gastrointestinal tract is unremar kable. No distinct masses are seen. IMPRESSION: NO DISTINCT ABNORMALITY APPRECIATED.
== END | disposition home or self-care (01) ==
LOC: RADCTMAIN 09:21
PROVIDERS: ATTEND Family Medicine
DX: R93.89 Abnormal findings on diagnostic imaging of other specified body structures (principal); Z88.5 Allergy status to narcotic agent
CPT/HCPCS: 72192

== ENCOUNTER → 2018-11-06 | Outpatient (CLI) | payer MEDICARE, OTHER ==
[2018-11-06 16:05] LABS: Albumin 4.1 g/dL (3.80-4.90); Albumin/Globulin Ratio 2.28 (1.20-2.10); Anion Gap 6.8 mmol/L (4.00-12.00); Calcium 8.6 mg/dL (8.7-10.3); Carbon Dioxide 25.2 mmol/L (21.6-31.8); Globulin 1.8 g/dL (2.1-3.7); LDL Cholesterol,Calculated 17.2 mg/dL (0.0-131.0); Potassium 4.9 mmol/L (3.5-5.5); Total Bilirubin 0.2 mg/dL (0.3-1.2); Total Protein 5.9 g/dL (6.2-8.2); VLDL Calculation 74.8 mg/dL (5.00-40.00)
== END | disposition home or self-care (01) ==
LOC: LABWHC1 08:27
PROVIDERS: ATTEND Internal Medicine Interventional Cardiology
DX: E78.2 Mixed hyperlipidemia (principal)
CPT/HCPCS: 36415; 80053; 80061

== ENCOUNTER 2019-04-18 15:34 | Emergency (ER) | payer MEDICARE, OTHER ==
[2019-04-18 15:41] VITALS: RESP 16; TEMP 98.5
--- NOTE | 2019-04-18 15:46 | ED ---
General Adult HPI - General Chief complaint: Dizziness Stated complaint: Dizziness Time Seen by Provider: 04/18/19 15:46 Source: patient Mode of arrival: wheelchair Limitations: no limitations - History of Present Illness Initial comments: Linda is a 58-year-old female presents the emergency department today for evaluation of dizziness and numbness of the left side of her body. Patient reports that sometime around February 02 she began having dizziness she thought it was just vertigo which she has experienced in the past so she can ordered. She reports she then felt that the left side of her body was intermittently going numb she was evaluated at [facility] and there is concerned that she may have a stroke and she was encouraged to come to the emergency department. Patient admits that at that time the [facility] physician actually contacted the emergency department for transfer patient volunteered to drive herself but then chose not to come to the emergency department or follow-up. Patient also felt that she was having learning of her vision so she followed up at [facility] and was advised that her visual exam was normal but that she needed further evaluation for her other complaints. Again she refused to come to the emergency department. Patient then followed up with her primary care physician who again expresses concern that the patient may have had a stroke and contacted the emergency department to transfer patient but patient again refused to come to the emergency department. Patient reports that now it has been too weak she continues to have dizziness which is worse with tender head and she also feels that her entire left side of her body from her scalp down her face arm and leg are numb or have decreased sensation. Patient reports that the symptoms have not changed today she just decided to have been long enough that she needed be evaluated. - Related Data Home Medications Medication Instructions Recorded Confirmed Fenofibrate Nanocrystallized 145 mg PO HS 06/04/16 04/18/19 [Tricor] Levothyroxine Sodium [Synthroid] 100 mcg PO AC-BRKFST 06/04/16 04/18/19 Venlafaxine HCl ER [Effexor XR] 300 mg PO DAILY 06/04/16 04/18/19 Atorvastatin [Lipitor] 80 mg PO DAILY 07/20/16 04/18/19 Insulin Aspart [NovoLOG Flexpen] 10 units SQ AC-TID 07/20/16 04/18/19 Insulin Glargine,Hum.rec.anlog 35 unit SQ BID 07/31/18 04/18/19 [Basaglar Dinorapen U-100] OLANZapine 20 mg PO DAILY 07/31/18 04/18/19 Metoprolol Succinate (ER) [Toprol 100 mg PO DAILY 04/18/19 04/18/19 Xl] Omeprazole [PriLOSEC] 10 mg PO DAILY 04/18/19 04/18/19 Pioglitazone [Actos] 15 mg PO DAILY 04/18/19 04/18/19 Vitamin E 1,000 unit PO DAILY 04/18/19 04/18/19 Warfarin Sodium [Coumadin] 7.5 mg PO SUMOTUWEFRSA 04/18/19 04/18/19 Warfarin [Coumadin] 5 mg PO TH 04/18/19 04/18/19 clonazePAM [KlonoPIN] 1 mg PO DAILY PRN 04/18/19 04/18/19 metFORMIN HCL 1,000 mg PO BID 04/18/19 04/18/19 Allergies Allergy/AdvReac Type Severity Reaction Status Date / Time codeine AdvReac Nausea & Verified 04/18/19 15:56 Vomiting Review of Systems ROS Statement: Those systems with pertinent positive or pertinent negative responses have been documented in the HPI. ROS Other: All systems not noted in ROS Statement are negative. Past Medical History Past Medical History: Diabetes Mellitus, GERD/Reflux, Hyperlipidemia, Hypertension, Thyroid Disorder Additional Past Medical History / Comment(s): Rheumatic fever when she was 11. Scar tissue remains on the heart, cyst on lt. ovary History of Any Multi-Drug Resistant Organisms: None Reported Past Surgical History: Appendectomy, Cardiac Valve Replacement Past Anesthesia/Blood Transfusion Reactions: Previous Problems w/ Anesthesia Additional Past Anesthesia/Blood Transfusion Reaction / Comment(s): Stopped breathing when a EGD was done Past Psychological History: Anxiety, Bipolar Smoking Status: Never smoker Past Alcohol Use History: None Reported Past Drug Use History: None Reported - Past Family History Father Additional Family Medical History / Comment(s): Bipolar and ETOH abuse Mother Additional Family Medical History / Comment(s): ETOH abuse General Exam - General Exam Comments Initial Comments: GENERAL: Patient is well-developed and well-nourished. Patient is nontoxic and well- hydrated and is in no distress. HENT: Normocephalic, Atraumatic. Neck is soft and supple. No significant lymphadenopathy is noted. Oropharynx is clear. Moist mucous membranes. Neck has full range of motion without eliciting any pain. EYES: The sclera were anicteric and conjunctiva were pink and moist. Extraocular movements were intact and pupils were equal round and reactive to light. Eyelids were unremarkable. PULMONARY: Unlabored respirations. Good breath sounds bilaterally. No audible rales r honchi or wheezing was noted. CARDIOVASCULAR: There is a regular rate and rhythm without any murmurs gallops or rubs. ABDOMEN: Soft and nontender with normal bowel sounds. SKIN: Skin is clear with no lesions or rashes and otherwise unremarkable. NEUROLOGIC: Patient is alert and oriented x3. Cranial nerves II through XII are grossly intact. Motor and sensory are also intact. Normal speech, volume and content. Symmetrical smile. MUSCULOSKELETAL: Normal extremities with adequate strength and full range of motion. No lower extremity swelling or edema. No calf tenderness. LYMPHATICS: No significant lymphadenopathy is noted PSYCHIATRIC: Normal psychiatric evaluation Limitations: no limitations Course Vital Signs 04/18/19 04/18/19 04/18/19 15:38 16:53 18:00 Temperature 98.5 F Pulse Rate 78 70 Respiratory 16 16 16 Rate Blood Pressure 162/105 129/84 O2 Sat by Pulse 97 97 Oximetry EKG Findings - EKG Comments: EKG Findings:: EKG obtained at 437, rate is 75 rhythm is sinus is normal axis, normal intervals, AR 160, QRS 82, QTc 414, QTC 462 there are no acute ST elevations or depressions no evidence of acute ischemia infarction or arrhythmia. Medical Decision Making - Medical Decision Making Patient was seen and evaluated history was obtained from the patient and sister at bedside Patient with 2 weeks of left sided body numbness and decreased sensation as well as intermittent vertigo. I discussed with the patient that we will obtain a CT but she will likely need an MRI for further evaluation of possible stroke. Patient states that she cannot have an MRI due to having a titanium heart valve she reports she had an MRI of her knee and it caused her to bleed inside of her heart. Labs with chronic anemia no other significant abnormalities. CT head and CT angiography of the head and neck with no acute findings. These results were discussed with the patient, advised the patient she needs to be evaluated by neurology for further evaluation. At this time patient would prefer to be discharged home and have outpatient evaluation as her symptoms of been present for 2 weeks and she does not want to stay for an MRI. All questions pertaining care were answered return parameters were discussed the patient was discharged home in stable condition. - Lab Data Result diagrams: 04/18/19 16:20 04/18/19 16:20 Lab Results 04/18/19 04/18/19 04/18/19 Range/Units 16:20 16:20 16:20 WBC 6.0 (3.8-10.6) k/uL RBC 3.91 (3.80-5.40) m/uL Hgb 11.1 L (11.4-16.0) gm/dL Hct 31.5 L (34.0-46.0) % MCV 80.7 (80.0-100.0) fL MCH 28.4 (25.0-35.0) pg MCHC 35.2 (31.0-37.0) g/dL RDW 13.5 (11.5-15.5) % Plt Count 287 (150-450) k/uL Neutrophils % 66 % Lymphocytes % 24 % Monocytes % 6 % Eosinophils % 1 % Basophils % 1 % Neutrophils # 4.0 (1.3-7.7) k/uL Lymphocytes # 1.4 (1.0-4.8) k/uL Monocytes # 0.3 (0-1.0) k/uL Eosinophils # 0.1 (0-0.7) k/uL Basophils # 0.1 (0-0.2) k/uL PT 20.6 H (9.0-12.0) sec INR 2.1 H (<1.2) Sodium 135 L (137-145) mmol/L Potassium 3.9 (3.5-5.1) mmol/L Chloride 100 (98-107) mmol/L Carbon Dioxide 27 (22-30) mmol/L Anion Gap 8 mmol/L BUN 18 H (7-17) mg/dL Creatinine 0.95 (0.52-1.04) mg/dL Est GFR (CKD-EPI)AfAm 78 (>60 ml/min/1.73 sqM) Est GFR (CKD-EPI)NonAf 68 (>60 ml/min/1.73 sqM) Glucose 123 H (74-99) mg/dL Calcium 9.4 (8.4-10.2) mg/dL Total Bilirubin 0.3 (0.2-1.3) mg/dL AST 26 (14-36) U/L ALT 23 (9-52) U/L Alkaline Phosphatase 65 (38-126) U/L Troponin I (0.000-0.034) ng/mL Total Protein 6.7 (6.3-8.2) g/dL Albumin 4.2 (3.5-5.0) g/dL Urine Color Urine Appearance (Clear) Urine pH (5.0-8.0) Ur Specific [place] (1.001-1.035) Urine Protein (Negative) Urine Glucose (UA) (Negative) Urine Ketones (Negative) Urine Blood (Negative) Urine Nitrite (Negative) Urine Bilirubin (Negative) Urine Urobilinogen (<2.0) mg/dL Ur Leukocyte Esterase (Negative) Urine WBC (0-5) /hpf Urine Bacteria (None) /hpf 04/18/19 04/18/19 Range/Units 16:20 16:20 WBC (3.8-10.6) k/uL RBC (3.80-5.40) m/uL Hgb (11.4-16.0) gm/dL Hct (34.0-46.0) % MCV (80.0-100.0) fL MCH (25.0-35.0) pg MCHC (31.0-37.0) g/dL RDW (11.5-15.5) % Plt Count (150-450) k/uL Neutrophils % % Lymphocytes % % Monocytes % % Eosinophils % % Basophils % % Neutrophils # (1.3-7.7) k/uL Lymphocytes # (1.0-4.8) k/uL Monocytes # (0-1.0) k/uL Eosinophils # (0-0.7) k/uL Basophils # (0-0.2) k/uL PT (9.0-12.0) sec INR (<1.2) Sodium (137-145) mmol/L Potassium (3.5-5.1) mmol/L Chloride (98-107) mmol/L Carbon Dioxide (22-30) mmol/L Anion Gap mmol/L BUN (7-17) mg/dL Creatinine (0.52-1.04) mg/dL Est GFR (CKD-EPI)AfAm (>60 ml/min/1.73 sqM) Est GFR (CKD-EPI)NonAf (>60 ml/min/1.73 sqM) Glucose (74-99) mg/dL Calcium (8.4-10.2) mg/dL Total Bilirubin (0.2-1.3) mg/dL AST (14-36) U/L ALT (9-52) U/L Alkaline Phosphatase (38-126) U/L Troponin I <0.012 (0.000-0.034) ng/mL Total Protein (6.3-8.2) g/dL Albumin (3.5-5.0) g/dL Urine Color Yellow Urine Appearance Clear (Clear) Urine pH 5.5 (5.0-8.0) Ur Specific [place] 1.009 (1.001-1.035) Urine Protein Negative (Negative) Urine Glucose (UA) Negative (Negative) Urine Ketones Negative (Negative) Urine Blood Negative (Negative) Urine Nitrite Negative (Negative) Urine Bilirubin Negative (Negative) Urine Urobilinogen <2.0 (<2.0) mg/dL Ur Leukocyte Esterase Large H (Negative) Urine WBC 36 H (0-5) /hpf Urine Bacteria Many H (None) /hpf Disposition Clinical Impression: Dizziness Disposition: HOME SELF-CARE Condition: Stable Instructions (If sedation given, give patient instructions): Paresthesia (ED), Dizziness (ED) Is patient prescribed a controlled substance at d/c from ED?: No Referrals: Edison Patton MD [Primary Care Provider] - 1-2 days
[2019-04-18 16:43] LABS: Basophils # (A) 0.1 k/uL (0-0.2); Basophils % (A) 1 %; Eosinophils # (A) 0.1 k/uL (0-0.7); Eosinophils % (A) 1 %; HCT 31.5 % (34.0-46.0); HGB 11.1 gm/dL (11.4-16.0); Lymphocytes # (A) 1.4 k/uL (1.0-4.8); Lymphocytes % (A) 24 %; MCH 28.4 pg (25.0-35.0); MCHC 35.2 g/dL (31.0-37.0); MCV 80.7 fL (80.0-100.0); Mean Platelet Volume 6.5; Monocytes # (A) 0.3 k/uL (0-1.0); Monocytes % (A) 6 %; Neutrophils % (A) 66 %; Platelet Count 287 k/uL (150-450); RBC 3.91 m/uL (3.80-5.40); RDW 13.5 % (11.5-15.5)
[2019-04-18 16:47] LABS: Appearance,Urine Clear (Clear); Bacteria,Urine Many /hpf; Bilirubin,Urine Negative (Negative); Blood,Urine Negative (Negative); Color,Urine Yellow; Glucose,Urine (UA) Negative (Negative); Ketones,Urine Negative (Negative); Leukocyte Esterase,Urine Large (Negative); Nitrite,Urine Negative (Negative); PH, Urine 5.5 (5.0-8.0); Protein,Urine Negative (Negative); Specific Gravity,Urine 1.009 (1.001-1.035); Urobilinogen,Urine <2.0 mg/dL (<2.0); WBC,Urine 36 /hpf (0-5)
[2019-04-18 16:48] LABS: INR 2.1 (<1.2); Prothrombin Time 20.6 sec (9.0-12.0)
[2019-04-18 16:52] LABS: Albumin 4.2 g/dL (3.5-5.0); Calcium 9.4 mg/dL (8.4-10.2); Potassium 3.9 mmol/L (3.5-5.1); Total Bilirubin 0.3 mg/dL (0.2-1.3); Total Protein 6.7 g/dL (6.3-8.2)
[2019-04-18] MEDS ORDERED: cefTRIAXone IN SWFI 1,000 MG/10 ML SYRINGE IVP STA (17:00)
--- NOTE | 2019-04-18 17:23 | CT ---
EXAMINATION TYPE: CT brain wo con DATE OF EXAM: 04/18/2019 COMPARISON: Prior head CT dated 06/04/2016 HISTORY: ANDERSON, dizziness and left side numbness CT DLP: 1071.2 mGycm Automated exposure control for dose reduction was used. Helical imaging through the brain FINDINGS: There is no hemorrhage or hydrocephalus. Brain density is stable, there is no mass effect. The calvar ium is intact. Paranasal sinuses and mastoid air cells are well aerated. IMPRESSION: STABLE EXAM, NORMAL BRAIN CT
--- NOTE | 2019-04-18 17:52 | CT ---
EXAMINATION TYPE: CT angio head neck DATE OF EXAM: 04/18/2019 HISTORY: Left-sided numbness, vision change COMPARISON: Left-sided numbness, headache and vision change CT DLP: 534 mGycm. Automated Exposure Control for Dose Reduction was Utilized. TECHNIQUE: CTA scan of the neck is performed with IV Contrast, patient injected with 50 mL of Isovue 370, axial images are obtained, coronal and sagittal reformatted images are reviewed. Three-D recons tructed images are created on an independent workstation and reviewed, three-dimensional reconstructi ons of the carotid arteries and [place] of [place]. FINDINGS: Carotid/Vascular Structures: Transverse aorta is patent. Super aortic branch vessels are patent, ther e is no evidence stenosis. [place] of [place] is patent. There is no evident aneurysm, dissection, or e mbolus. Other: Patient is post median sternotomy. Lung apices are unremarkable. IMPRESSION: No significant abnormality is seen.
[2019-04-18 18:02] VITALS: BP 129/84; PULSE 70
== END 2019-04-18 18:45 | disposition home or self-care (01) ==
LOC: EC 15:34
DX: R42 Dizziness and giddiness (principal); R20.0 Anesthesia of skin; D64.9 Anemia, unspecified; E11.9 Type 2 diabetes mellitus without complications; K21.9 Gastro-esophageal reflux disease without esophagitis; I10 Essential (primary) hypertension; E78.5 Hyperlipidemia, unspecified; E07.9 Disorder of thyroid, unspecified; F41.9 Anxiety disorder, unspecified; F31.9 Bipolar disorder, unspecified; Z79.4 Long term (current) use of insulin; Z79.890 Hormone replacement therapy; Z79.01 Long term (current) use of anticoagulants; Z79.899 Other long term (current) drug therapy; Z88.5 Allergy status to narcotic agent; Z95.2 Presence of prosthetic heart valve
CPT/HCPCS: 36415; 93005; 80053; 84484; 85025; 85610; 81001; 87086; 70496; 70450; 70498; 99284; 96374; J0696; Q9967

== ENCOUNTER 2019-08-08 10:36 | Emergency (ER) | payer MEDICARE, OTHER ==
[2019-08-08 10:44] VITALS: TEMP 97.8
[2019-08-08] MEDS ORDERED: KETOROLAC 30 MG/ML 1 ML VIAL IVP STA (11:05)
[2019-08-08] MEDS ORDERED: SODIUM CHLORIDE 0.9% 1,000 ML IV STA (11:05)
[2019-08-08 11:32] LABS: Appearance,Urine Clear (Clear); Bacteria,Urine Many /hpf; Bilirubin,Urine Negative (Negative); Blood,Urine Negative (Negative); Color,Urine Light Yellow; Glucose,Urine (UA) 4+ (Negative); Ketones,Urine Negative (Negative); Leukocyte Esterase,Urine Moderate (Negative); Mucus,Urine Rare /hpf; Nitrite,Urine Negative (Negative); PH, Urine 5.5 (5.0-8.0); Protein,Urine Negative (Negative); RBC,Urine 1 /hpf (0-5); Specific Gravity,Urine 1.011 (1.001-1.035); Squamous Epithelial Cell,Urine <1 /hpf (0-4); Urobilinogen,Urine <2.0 mg/dL (<2.0); WBC,Urine 13 /hpf (0-5)
[2019-08-08 11:35] LABS: Basophils # (A) 0.1 k/uL (0-0.2); Basophils % (A) 2 %; Eosinophils # (A) 0.1 k/uL (0-0.7); Eosinophils % (A) 2 %; HCT 34.1 % (34.0-46.0); HGB 11.8 gm/dL (11.4-16.0); Lymphocytes # (A) 0.7 k/uL (1.0-4.8); Lymphocytes % (A) 16 %; MCHC 34.8 g/dL (31.0-37.0); MCV 83.4 fL (80.0-100.0); Mean Platelet Volume 6.4; Monocytes # (A) 0.2 k/uL (0-1.0); Monocytes % (A) 5 %; Neutrophils # (A) 3.1 k/uL (1.3-7.7); Neutrophils % (A) 73 %; Platelet Count 273 k/uL (150-450); RBC 4.08 m/uL (3.80-5.40); RDW 13.1 % (11.5-15.5); WBC 4.2 k/uL (3.8-10.6)
[2019-08-08 11:55] LABS: Albumin 4.2 g/dL (3.5-5.0); Calcium 9.4 mg/dL (8.4-10.2); Potassium 4.5 mmol/L (3.5-5.1); Total Bilirubin 0.4 mg/dL (0.2-1.3); Total Protein 6.9 g/dL (6.3-8.2)
--- NOTE | 2019-08-08 12:24 | ED ---
General Adult HPI - General Chief complaint: Urogenital Stated complaint: UTI Time Seen by Provider: 08/08/19 10:46 Source: patient, RN notes reviewed Mode of arrival: ambulatory Limitations: no limitations - History of Present Illness Initial comments: 59-year-old female with a past history of IDDM, GERD, hyperlipidemia, hypertension presents to the emergency department for chief complaint of possible urinary tract infection. Patient states she has had suprapubic pain and left lower quadrant pain on and off for about a week. States she has some u rinary frequency as well. She believes she has a urinary tract infection. Denies any significant flank pain. denies any nausea vomiting. Denies fevers or chills. Patient has no other complaints at this time including shortness of breath, chest pain, nausea or vomiting, headache, or visual changes. - Related Data Home Medications Medication Instructions Recorded Confirmed Fenofibrate Nanocrystallized 145 mg PO HS 06/04/16 04/18/19 [Tricor] Levothyroxine Sodium [Synthroid] 100 mcg PO AC-BRKFST 06/04/16 04/18/19 Venlafaxine HCl ER [Effexor XR] 300 mg PO DAILY 06/04/16 04/18/19 Atorvastatin [Lipitor] 80 mg PO DAILY 07/20/16 04/18/19 Insulin Aspart [NovoLOG Flexpen] 10 units SQ AC-TID 07/20/16 04/18/19 Insulin Glargine,Hum.rec.anlog 35 unit SQ BID 07/31/18 04/18/19 [Basaglar Kwikpen U-100] OLANZapine 20 mg PO DAILY 07/31/18 04/18/19 Metoprolol Succinate (ER) [Toprol 100 mg PO DAILY 04/18/19 04/18/19 Xl] Omeprazole [PriLOSEC] 10 mg PO DAILY 04/18/19 04/18/19 Pioglitazone [Actos] 15 mg PO DAILY 04/18/19 04/18/19 Vitamin E 1,000 unit PO DAILY 04/18/19 04/18/19 Warfarin Sodium [Coumadin] 7.5 mg PO SUMOTUWEFRSA 04/18/19 04/18/19 Warfarin [Coumadin] 5 mg PO TH 04/18/19 04/18/19 clonazePAM [KlonoPIN] 1 mg PO DAILY PRN 04/18/19 04/18/19 metFORMIN HCL 1,000 mg PO BID 04/18/19 04/18/19 Previous Rx's Medication Instructions Recorded Cephalexin [Keflex] 500 mg PO Q6HR 10 Days #40 cap 08/08/19 Allergies Allergy/AdvReac Type Severity Reaction Status Date / Time codeine AdvReac Nausea & Verified 08/08/19 10:39 Vomiting Review of Systems ROS Statement: Those systems with pertinent positive or pertinent negative responses have been documented in the HPI. ROS Other: All systems not noted in ROS Statement are negative. Past Medical History Past Medical History: Diabetes Mellitus, GERD/Reflux, Hyperlipidemia, Hypertension, Thyroid Disorder Additional Past Medical History / Comment(s): Rheumatic fever when she was 11. Scar tissue remains on the heart, cyst on lt. ovary History of Any Multi-Drug Resistant Organisms: None Reported Past Surgical History: Appendectomy, Cardiac Valve Replacement Past Anesthesia/Blood Transfusion Reactions: Previous Problems w/ Anesthesia Additional Past Anesthesia/Blood Transfusion Reaction / Comment(s): Stopped breathing when a EGD was done Past Psychological History: Anxiety, Bipolar Smoking Status: Never smoker Past Alcohol Use History: None Reported Past Drug Use History: None Reported - Past Family History Father Additional Family Medical History / Comment(s): Bipolar and ETOH abuse Mother Additional Family Medical History / Comment(s): ETOH abuse General Exam Limitations: no limitations General appearance: alert, in no apparent distress Head exam: Present: atraumatic, normocephalic, normal inspection Eye exam: Present: normal appearance, PERRL, EOMI. Absent: scleral icterus, conjunctival injection, periorbital swelling ENT exam: Present: normal exam, mucous membranes moist Neck exam: Present: normal inspection, full ROM. Absent: tenderness, meningismus, lymphadenopathy Respiratory exam: Present: normal lung sounds bilaterally. Absent: respiratory distress, wheezes, rales, rhonchi, stridor Cardiovascular Exam: Present: regular rate, normal rhythm, normal heart sounds. Absent: systolic murmur, diastolic murmur, rubs, gallop, clicks GI/Abdominal exam: Present: soft, tenderness (Suprapubic and left lower quadrant tenderness.), normal bowel sounds. Absent: distended, guarding, rebound, rigid Back exam: Absent: CVA tenderness (R), CVA tenderness (L) Course Vital Signs 08/08/19 10:39 Temperature 97.8 F Pulse Rate 84 Respiratory 18 Rate Blood Pressure 121/89 O2 Sat by Pulse 97 Oximetry Medical Decision Making - Medical Decision Making 59-year-old female presents to the emergency department for a chief complaint of supple urinary tract infection. Patient has some suprapubic and left lower quadrant pain. Has had urinary frequency for about a week. On exam she does have some tenderness of the left lower quadrant, no CVA tenderness. CBC unremarkable. CMP does show glucose of 327, patient is an insulin dependent diabetic and was given fluids. Urine shows evidence of urinary tract infection with 13 white blood cells. However given her quadrant pain CT was ordered to rule out diverticulitis or kidney stone. This shows mild thickening of the bladder wall, correlated for cystitis. Hepatosplenomegaly which patient will follow up for. Patient will be treated with outpatient antibiotics. No evidence for pyelonephritis as she does not have CVA tenderness. She will return if she has any worsening symptoms. - Lab Data Result diagrams: 08/08/19 11:17 08/08/19 11:17 Lab Results 08/08/19 08/08/19 08/08/19 Range/Units 11:05 11:17 11:17 WBC 4.2 (3.8-10.6) k/uL RBC 4.08 (3.80-5.40) m/uL Hgb 11.8 (11.4-16.0) gm/dL Hct 34.1 (34.0-46.0) % MCV 83.4 (80.0-100.0) fL MCH 29.0 (25.0-35.0) pg MCHC 34.8 (31.0-37.0) g/dL RDW 13.1 (11.5-15.5) % Plt Count 273 (150-450) k/uL Neutrophils % 73 % Lymphocytes % 16 % Monocytes % 5 % Eosinophils % 2 % Basophils % 2 % Neutrophils # 3.1 (1.3-7.7) k/uL Lymphocytes # 0.7 L (1.0-4.8) k/uL Monocytes # 0.2 (0-1.0) k/uL Eosinophils # 0.1 (0-0.7) k/uL Basophils # 0.1 (0-0.2) k/uL Sodium 138 (137-145) mmol/L Potassium 4.5 (3.5-5.1) mmol/L Chloride 102 (98-107) mmol/L Carbon Dioxide 25 (22-30) mmol/L Anion Gap 11 mmol/L BUN 18 H (7-17) mg/dL Creatinine 0.88 (0.52-1.04) mg/dL Est GFR (CKD-EPI)AfAm 85 (>60 ml/min/1.73 sqM) Est GFR (CKD-EPI)NonAf 74 (>60 ml/min/1.73 sqM) Glucose 327 H (74-99) mg/dL Calcium 9.4 (8.4-10.2) mg/dL Total Bilirubin 0.4 (0.2-1.3) mg/dL AST 28 (14-36) U/L ALT 30 (9-52) U/L Alkaline Phosphatase 69 (38-126) U/L Total Protein 6.9 (6.3-8.2) g/dL Albumin 4.2 (3.5-5.0) g/dL Amylase 60 (30-110) U/L Lipase 221 (23-300) U/L Urine Color Light Yellow Urine Appearance Clear (Clear) Urine pH 5.5 (5.0-8.0) Ur Specific [place] 1.011 (1.001-1.035) Urine Protein Negative (Negative) Urine Glucose (UA) 4+ H (Negative) Urine Ketones Negative (Negative) Urine Blood Negative (Negative) Urine Nitrite Negative (Negative) Urine Bilirubin Negative (Negative) Urine Urobilinogen <2.0 (<2.0) mg/dL Ur Leukocyte Esterase Moderate H (Negative) Urine RBC 1 (0-5) /hpf Urine WBC 13 H (0-5) /hpf Ur Squamous Epith Cells <1 (0-4) /hpf Urine Bacteria Many H (None) /hpf Urine Mucus Rare H (None) /hpf Disposition Clinical Impression: Cystitis Disposition: HOME SELF-CARE Condition: Good Instructions (If sedation given, give patient instructions): Urinary Tract Infection in Women (ED) Additional Instructions: Please drink plenty of fluids. Take antibiotic as directed. Follow-up with primary care in 1-2 days. Return to the emergency department if you have any worsening symptoms. Prescriptions: Cephalexin [Keflex] 500 mg PO Q6HR 10 Days #40 cap Is patient prescribed a controlled substance at d/c from ED?: No Referrals: Benton Galan MD [Primary Care Provider] - 1-2 days Time of Disposition: 14:20
--- NOTE | 2019-08-08 13:17 | CT ---
EXAMINATION TYPE: CT abdomen pelvis w con DATE OF EXAM: 08/08/2019 REFERENCE: None. HISTORY: L flank pain, HISTORY: Lt flank pain, UTI REFERENCE: NONE CT DLP: 1668.1 mGy Automated exposure control for dose reduction was used. TECHNIQUE: Helical acquisition through the abdomen and pelvis was obtained following the oral ingesti on of without Oral Contrast and following intravenous administration of 100 mL of Isovue 300. The armani a was reformatted in axial, coronal and sagittal projections. FINDINGS: There are mild atelectatic changes present at the lung bases bilaterally. There is no ple ural or pericardial fluid present heart is mildly enlarged. There is a small, sliding hiatal hernia present. Within the abdomen, the liver is enlarged measuring 22 cm. This is largely due to a prominent [place]' s lobe of the spleen is enlarged measuring 16 cm. The gallbladder is contracted. Both adrenal glands are normal. Both kidneys appear normal. There is no evidence of hydronephrosis or nephrolithiasis. The pancreas is unremarkable. There is no significant retroperitoneal, iliac or inguinal adenopathy. The bladder wall appears mildly thickened. The uterus and left ovaries are normal. The right ovary is not visualized. There is no significant diverticular change and there is no radiographic evidence of diverticulitis. The appendix is not visualized. Small bowel loops are of normal caliber. There is no free fluid and no free air identified There is facet arthropathy in the lower lumbar spine and hypertrophic spondylosis in the dorsal spine . IMPRESSION: 1. NO EVIDENCE OF HYDRONEPHROSIS OR NEPHROLITHIASIS. 2. HEPATOSPLENOMEGALY. 3. MILD CARDIOMEGALY. 4. MILD THICKENING OF THE BLADDER WALL. PLEASE CORRELATE FOR COLITIS. 5. SMALL, SLIDING HIATAL HERNIA. 6. MILD DEGENERATIVE CHANGE WITHIN THE SPINE.
[2019-08-08 14:35] VITALS: BP 119/84; PULSE 75; RESP 16
== END 2019-08-08 14:34 | disposition home or self-care (01) ==
LOC: EC 10:36
DX: N30.90 Cystitis, unspecified without hematuria (principal); R16.2 Hepatomegaly with splenomegaly, not elsewhere classified; E11.9 Type 2 diabetes mellitus without complications; E78.5 Hyperlipidemia, unspecified; E07.9 Disorder of thyroid, unspecified; F41.9 Anxiety disorder, unspecified; F31.9 Bipolar disorder, unspecified; Z79.4 Long term (current) use of insulin; Z79.01 Long term (current) use of anticoagulants; Z79.890 Hormone replacement therapy; Z79.899 Other long term (current) drug therapy; Z88.5 Allergy status to narcotic agent; Z90.89 Acquired absence of other organs; Z95.4 Presence of other heart-valve replacement
CPT/HCPCS: 36415; 80053; 82150; 83690; 85025; 81001; 87086; 87077; 87186; 74177; 99284; 96374; 96361; J1885; Q9967

== ENCOUNTER 2019-08-22 19:17 | Emergency (ER) | payer MEDICARE, OTHER ==
[2019-08-22 19:22] VITALS: RESP 18; TEMP 97.9
[2019-08-22] MEDS ORDERED: KETOROLAC 30 MG/ML 1 ML VIAL IVP STA (20:12)
[2019-08-22] MEDS ORDERED: SODIUM CHLORIDE 0.9% 1,000 ML IV STA (20:12)
[2019-08-22 20:36] LABS: Basophils # (A) 0.1 k/uL (0-0.2); Basophils % (A) 2 %; Eosinophils # (A) 0.1 k/uL (0-0.7); Eosinophils % (A) 2 %; HCT 33.6 % (34.0-46.0); HGB 12.4 gm/dL (11.4-16.0); Lymphocytes # (A) 1.4 k/uL (1.0-4.8); Lymphocytes % (A) 24 %; MCHC 36.8 g/dL (31.0-37.0); MCV 81.5 fL (80.0-100.0); Monocytes # (A) 0.4 k/uL (0-1.0); Monocytes % (A) 6 %; Neutrophils # (A) 3.6 k/uL (1.3-7.7); Neutrophils % (A) 63 %; Platelet Count 266 k/uL (150-450); RBC 4.12 m/uL (3.80-5.40); RDW 13.2 % (11.5-15.5); WBC 5.7 k/uL (3.8-10.6)
[2019-08-22 20:37] LABS: Appearance,Urine Clear (Clear); Bilirubin,Urine Negative (Negative); Blood,Urine Negative (Negative); Color,Urine Light Yellow; Glucose,Urine (UA) Negative (Negative); Ketones,Urine Negative (Negative); Leukocyte Esterase,Urine Negative (Negative); Nitrite,Urine Negative (Negative); PH, Urine 6.5 (5.0-8.0); Protein,Urine Negative (Negative); Specific Gravity,Urine 1.004 (1.001-1.035); Urobilinogen,Urine <2.0 mg/dL (<2.0)
[2019-08-22 20:49] LABS: ALT 42 U/L (9-52); AST 33 U/L (14-36); African American GFR (CKD) >90 (>60 ml/min/1.73 sqM); Albumin 4.3 g/dL (3.5-5.0); Alkaline Phosphatase 67 U/L (38-126); Amylase 49 U/L (30-110); Anion Gap 10 mmol/L; Blood Urea Nitrogen 15 mg/dL (7-17); Calcium 9.4 mg/dL (8.4-10.2); Carbon Dioxide 26 mmol/L (22-30); Chloride 101 mmol/L (98-107); Glucose 153 mg/dL (74-99); Potassium 4.3 mmol/L (3.5-5.1); Sodium 137 mmol/L (137-145); Total Bilirubin 0.4 mg/dL (0.2-1.3)
--- NOTE | 2019-08-22 21:11 | US ---
EXAMINATION TYPE: US transvaginal DATE OF EXAM: 08/22/2019 COMPARISON: NONE CLINICAL HISTORY: Left pelvic pain. TECHNIQUE: . Transabdominal sonographic images of the pelvis were acquired. Transvaginal sonographi c images were medically necessary to better assess the following anatomy: Date of LMP: Not Reported EXAM MEASUREMENTS: Uterus: 7.0 x 3.6 x 3.9 cm Endometrial Stripe: 0.2 cm Right Ovary: not seen due to overlying bowel/obesity/atrophy Left Ovary: not seen due to overlying bowel/obesity/atrophy Patient of large body habitus, technically difficult. 1. Uterus: Anteverted wnl 2. Endometrium: wnl 3. Right Ovary: not seen due to overlying bowel/obesity/atrophy 4. Left Ovary: not seen due to overlying bowel/obesity/atrophy 5. Bilateral Adnexa: wnl 6. Posterior cul-de-sac: wnl IMPRESSION: 1. Exam extremely limited due to patient body habitus. 2. No obvious ultrasound abnormality of the pelvis.
--- NOTE | 2019-08-22 22:00 | ED ---
Abdominal Pain HPI - General Chief Complaint: Abdominal Pain Stated Complaint: Urogenital Time Seen by Provider: 08/22/19 19:30 Source: patient Mode of arrival: ambulatory Limitations: no limitations - History of Present Illness Initial Comments: 59-year-old female patient presents to the emergency department today for evaluation of left lower quadrant and left groin pain. Patient states pain started yesterday and has been steadily worsening. Patient states she has had similar pain in the past and was diagnosed with an ovarian cyst. Patient states that she was diagnosed with urinary tract infection little over a week ago. She has been taking Keflex for this. Patient states urinary symptoms have improved however this pain started today. Patient denies any fever or chills. Denies any nausea, vomiting, constipation, or diarrhea. Denies any abnormal vaginal discharge. States she did have a short episode of vaginal bleeding 2 weeks ago. 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 Patient did undergo menopause in 2011. Patient denies any recent rash, shortness breath, chest pain, back pain, numbness, tingling, dizziness, weakness, headache, visual changes, or any other complaints. - Related Data Home Medications Medication Instructions Recorded Confirmed Fenofibrate Nanocrystallized 145 mg PO HS 06/04/16 04/18/19 [Tricor] Levothyroxine Sodium [Synthroid] 100 mcg PO AC-BRKFST 06/04/16 04/18/19 Venlafaxine HCl ER [Effexor XR] 300 mg PO DAILY 06/04/16 04/18/19 Atorvastatin [Lipitor] 80 mg PO DAILY 07/20/16 04/18/19 Insulin Aspart [NovoLOG Flexpen] 10 units SQ AC-TID 07/20/16 04/18/19 Insulin Glargine,Hum.rec.anlog 35 unit SQ BID 07/31/18 04/18/19 [Basaglar Kwikpen U-100] OLANZapine 20 mg PO DAILY 07/31/18 04/18/19 Metoprolol Succinate (ER) [Toprol 100 mg PO DAILY 04/18/19 04/18/19 Xl] Omeprazole [PriLOSEC] 10 mg PO DAILY 04/18/19 04/18/19 Pioglitazone [Actos] 15 mg PO DAILY 04/18/19 04/18/19 Vitamin E 1,000 unit PO DAILY 04/18/19 04/18/19 Warfarin Sodium [Coumadin] 7.5 mg PO SUMOTUWEFRSA 04/18/19 04/18/19 Warfarin [Coumadin] 5 mg PO TH 04/18/19 04/18/19 clonazePAM [KlonoPIN] 1 mg PO DAILY PRN 04/18/19 04/18/19 metFORMIN HCL 1,000 mg PO BID 04/18/19 04/18/19 Previous Rx's Medication Instructions Recorded Cephalexin [Keflex] 500 mg PO Q6HR 10 Days #40 cap 08/08/19 Allergies Allergy/AdvReac Type Severity Reaction Status Date / Time codeine AdvReac Nausea & Verified 08/22/19 19:22 Vomiting Review of Systems ROS Statement: Those systems with pertinent positive or pertinent negative responses have been documented in the HPI. ROS Other: All systems not noted in ROS Statement are negative. Past Medical History Past Medical History: Diabetes Mellitus, GERD/Reflux, Hyperlipidemia, Hy pertension, Thyroid Disorder Additional Past Medical History / Comment(s): Rheumatic fever when she was 11. Scar tissue remains on the heart, cyst on lt. ovary History of Any Multi-Drug Resistant Organisms: C-DIFF Date of last positivie culture/infection: 2013 Past Surgical History: Appendectomy, Cardiac Valve Replacement Past Anesthesia/Blood Transfusion Reactions: Previous Problems w/ Anesthesia Additional Past Anesthesia/Blood Transfusion Reaction / Comment(s): Stopped breathing when a EGD was done Past Psychological History: Anxiety, Bipolar Smoking Status: Never smoker Past Alcohol Use History: None Reported Past Drug Use History: None Reported - Past Family History Father Additional Family Medical History / Comment(s): Bipolar and ETOH abuse Mother Additional Family Medical History / Comment(s): ETOH abuse General Exam Limitations: no limitations General appearance: alert, in no apparent distress, other (Physical well- developed, well-nourished adult female patient in no acute distress. Vital signs upon presentation are temperature 97.9F, pulse 72, respirations 18, blood pressure 150/90, pulse ox 97% on room air.) Eye exam: Present: normal appearance, PERRL, EOMI. Absent: scleral icterus, conjunctival injection, periorbital swelling ENT exam: Present: normal exam, normal oropharynx, mucous membranes moist Respiratory exam: Present: normal lung sounds bilaterally. Absent: respiratory distress, wheezes, rales, rhonchi, stridor Cardiovascular Exam: Present: regular rate, normal rhythm, normal heart sounds. Absent: systolic murmur, diastolic murmur, rubs, gallop, clicks GI/Abdominal exam: Present: soft, tenderness (Left lower quadrant), normal bowel sounds. Absent: distended, guarding, rebound, rigid Neurological exam: Present: alert, oriented X3, CN II-XII intact Psychiatric exam: Present: normal affect, normal mood Skin exam: Present: warm, dry, intact, normal color. Absent: rash Course Vital Signs 08/22/19 08/23/19 19:19 00:56 Temperature 97.9 F Pulse Rate 72 73 Respiratory 18 18 Rate Blood Pressure 150/90 141/91 O2 Sat by Pulse 97 96 Oximetry Medical Decision Making - Medical Decision Making 59-year-old female patient presents to the emergency department today for evaluation of left pelvic pain. Physical examination did reveal tenderness over the suprapubic and left lower quadrant abdomen. Labs reviewed and were unremarkable. Urinalysis negative for infection. Attempted transvaginal ultrasound however exam is severely limited due to body habitus. CT of the abdomen and pelvis was obtained and did reveal a large urinary bladder indicating possible outlet obstruction. We did perform postvoid residual bladder scan which showed over 480 mL. Cloud catheter was inserted with 700 mL of urine output. We did leave this in place. Patient be discharged follow-up with urology for further evaluation. She is instructed to follow-up with her primary care physician for recheck in 1-2 days. Return parameters were discussed in detail. She verbalizes understanding and agrees with this plan. - Lab Data Result diagrams: 08/22/19 20:25 08/22/19 20:25 Lab Results 08/22/19 08/22/19 08/22/19 Range/Units 20:25 20:25 20:25 WBC 5.7 (3.8-10.6) k/uL RBC 4.12 (3.80-5.40) m/uL Hgb 12.4 (11.4-16.0) gm/dL Hct 33.6 L (34.0-46.0) % MCV 81.5 (80.0-100.0) fL MCH 30.0 (25.0-35.0) pg MCHC 36.8 (31.0-37.0) g/dL RDW 13.2 (11.5-15.5) % Plt Count 266 (150-450) k/uL Neutrophils % 63 % Lymphocytes % 24 % Monocytes % 6 % Eosinophils % 2 % Basophils % 2 % Neutrophils # 3.6 (1.3-7.7) k/uL Lymphocytes # 1.4 (1.0-4.8) k/uL Monocytes # 0.4 (0-1.0) k/uL Eosinophils # 0.1 (0-0.7) k/uL Basophils # 0.1 (0-0.2) k/uL Sodium 137 (137-145) mmol/L Potassium 4.3 (3.5-5.1) mmol/L Chloride 101 (98-107) mmol/L Carbon Dioxide 26 (22-30) mmol/L Anion Gap 10 mmol/L BUN 15 (7-17) mg/dL Creatinine 0.74 (0.52-1.04) mg/dL Est GFR (CKD-EPI)AfAm >90 (>60 ml/min/1.73 sqM) Est GFR (CKD-EPI)NonAf >90 (>60 ml/min/1.73 sqM) Glucose 153 H (74-99) mg/dL Calcium 9.4 (8.4-10.2) mg/dL Total Bilirubin 0.4 (0.2-1.3) mg/dL AST 33 (14-36) U/L ALT 42 (9-52) U/L Alkaline Phosphatase 67 (38-126) U/L Total Protein 7.0 (6.3-8.2) g/dL Albumin 4.3 (3.5-5.0) g/dL Amylase 49 (30-110) U/L Lipase 181 (23-300) U/L Urine Color Light Yellow Urine Appearance Clear (Clear) Urine pH 6.5 (5.0-8.0) Ur Specific [place] 1.004 (1.001-1.035) Urine Protein Negative (Negative) Urine Glucose (UA) Negative (Negative) Urine Ketones Negative (Negative) Urine Blood Negative (Negative) Urine Nitrite Negative (Negative) Urine Bilirubin Negative (Negative) Urine Urobilinogen <2.0 (<2.0) mg/dL Ur Leukocyte Esterase Negative (Negative) - Radiology Data Radiology results: report reviewed, image reviewed Ultrasound was obtained. Report was reviewed in its entirety. Impression by Dr. Chambers shows exam extremely limited due to patient body habitus. No obvious ultrasound abnormality of the pelvis. CT abdomen and pelvis with contrast was obtained. Report was reviewed in its entirety. Impression by Dr. Chambers shows large urinary bladder could relate to some bladder outlet obstruction. Disposition Clinical Impression: Abdominal pain, Urinary retention Disposition: HOME SELF-CARE Condition: Good Instructions (If sedation given, give patient instructions): Acute Urinary Retention in Women (ED), Abdominal Pain (ED) Additional Instructions: Follow up with urologist for recheck in 1-2 days. Return to the emergency department for any new, worsening, or concerning symptoms. Is patient prescribed a controlled substance at d/c from ED?: No Referrals: Benton Galan MD [Primary Care Provider] - 1-2 days Bennie Kendrick MD [STAFF PHYSICIAN] - 1-2 days Time of Disposition: 00:33
--- NOTE | 2019-08-22 22:36 | CT ---
EXAMINATION TYPE: CT abdomen pelvis w con DATE OF EXAM: 08/22/2019 COMPARISON: 08/08/2019 HISTORY: LLQ pain CT DLP: 1815.8 mGycm Automated exposure control for dose reduction was used. TECHNIQUE: Helical acquisition of images was performed from the lung bases through the pelvis. CONTRAST: Performed without Oral Contrast and with IV Contrast, patient injected with 100 mL of Isovue 300. FINDINGS: Lung bases are clear. There is no pleural effusion. Heart appears enlarged. There is no pericardial e ffusion. Stomach is intact. Liver spleen pancreas appear normal. Bile ducts are not dilated. Gallblad esha appears normal. There is no adrenal mass. Kidneys show satisfactory contrast opacification. There is no hydronephrosi s. There is no retroperitoneal adenopathy. Ureters are not dilated. Bladder distends smoothly. Uterus is anteverted. There is no free fluid in the pelvis. Urinary bladder is large. There is no mesenteric edema. There is no evidence of a bowel obstruction. There is no ascites or cecy e air. Appendix is not seen. There is no sign of thickened appendix. Lumbar vertebra have normal alig nment. There is no compression fracture. Bony pelvis is intact. IMPRESSION: LARGE URINARY BLADDER COULD RELATE TO SOME BLADDER OUTLET OBSTRUCTION. CARDIOMEGALY. NO ADVERSE MACK E COMPARED TO OLD EXAM.
[2019-08-23 00:59] VITALS: BP 141/91; PULSE 73
== END 2019-08-23 00:58 | disposition home or self-care (01) ==
LOC: EC 19:17
DX: R10.2 Pelvic and perineal pain (principal); R33.9 Retention of urine, unspecified; E11.9 Type 2 diabetes mellitus without complications; K21.9 Gastro-esophageal reflux disease without esophagitis; E78.5 Hyperlipidemia, unspecified; I10 Essential (primary) hypertension; E07.9 Disorder of thyroid, unspecified; F31.9 Bipolar disorder, unspecified; F41.9 Anxiety disorder, unspecified; Z88.5 Allergy status to narcotic agent; Z79.01 Long term (current) use of anticoagulants; Z79.4 Long term (current) use of insulin; Z79.890 Hormone replacement therapy; Z79.899 Other long term (current) drug therapy; Z90.49 Acquired absence of other specified parts of digestive tract; Z95.2 Presence of prosthetic heart valve; Z87.440 Personal history of urinary (tract) infections; Z87.42 Personal history of other diseases of the female genital tract
CPT/HCPCS: 36415; 51702; 74177; 76830; 80053; 81003; 82150; 83690; 85025; 96361; 96374; 99284

== ENCOUNTER 2019-09-11 04:06 | Emergency (ER) | payer MEDICARE, OTHER ==
--- NOTE | 2019-09-11 04:43 | ED ---
Chest Pain HPI - General Chief Complaint: Chest Pain Stated Complaint: Overdose Time Seen by Provider: 09/11/19 04:34 Source: patient Mode of arrival: ambulatory Limitations: no limitations - History of Present Illness MD Complaint: chest pain -: hour(s) Onset: during rest Pain Location: substernal Pain Radiation: none Severity: mild Quality: heaviness Consistency: constant Improves With: nothing Worsens With: nothing Treatments Prior to Arrival: none - Related Data Home Medications Medication Instructions Recorded Confirmed Fenofibrate Nanocrystallized 145 mg PO HS 06/04/16 04/18/19 [Tricor] Levothyroxine Sodium [Synthroid] 100 mcg PO AC-BRKFST 06/04/16 04/18/19 Venlafaxine HCl ER [Effexor XR] 300 mg PO DAILY 06/04/16 04/18/19 Atorvastatin [Lipitor] 80 mg PO DAILY 07/20/16 04/18/19 Insulin Aspart [NovoLOG Flexpen] 10 units SQ AC-TID 07/20/16 04/18/19 Insulin Glargine,Hum.rec.anlog 35 unit SQ BID 07/31/18 04/18/19 [Basaglar Kwikpen U-100] OLANZapine 20 mg PO DAILY 07/31/18 04/18/19 Metoprolol Succinate (ER) [Toprol 100 mg PO DAILY 04/18/19 04/18/19 Xl] Omeprazole [PriLOSEC] 10 mg PO DAILY 04/18/19 04/18/19 Pioglitazone [Actos] 15 mg PO DAILY 04/18/19 04/18/19 Vitamin E 1,000 unit PO DAILY 04/18/19 04/18/19 Warfarin Sodium [Coumadin] 7.5 mg PO SUMOTUWEFRSA 04/18/19 04/18/19 Warfarin [Coumadin] 5 mg PO TH 04/18/19 04/18/19 clonazePAM [KlonoPIN] 1 mg PO DAILY PRN 04/18/19 04/18/19 metFORMIN HCL 1,000 mg PO BID 04/18/19 04/18/19 Previous Rx's Medication Instructions Recorded Cephalexin [Keflex] 500 mg PO Q6HR 10 Days #40 cap 08/08/19 Allergies Allergy/AdvReac Type Severity Reaction Status Date / Time codeine AdvReac Nausea & Verified 09/11/19 04:21 Vomiting Review of Systems ROS Statement: Those systems with pertinent positive or pertinent negative responses have been documented in the HPI. ROS Other: All systems not noted in ROS Statement are negative. Constitutional: Denies: fever, chills Respiratory: Denies: cough, dyspnea Cardiovascular: Reports: as per HPI, chest pain. Denies: palpitations, edema, syncope Gastrointestinal: Denies: abdominal pain, nausea, vomiting, diarrhea Genitourinary: Denies: dysuria, hematuria Musculoskeletal: Denies: back pain Skin: Denies: rash Neurological: Denies: headache, weakness, numbness EKG Findings - EKG Results: EKG: interpreted by ERMD, sinus rhythm (Rate 77 bpm), normal axis, normal QRS - Blocks, Nelson, Hypertrophy, ST Abn: Repolarization changes or abnormalities: nonspecific abnormality, ST segment, and/or T wave, Q-T interval prolongation Past Medical History Past Medical History: Diabetes Mellitus, GERD/Reflux, Hyperlipidemia, Hypertension, Thyroid Disorder Additional Past Medical History / Comment(s): Rheumatic fever when she was 11. Scar tissue remains on the heart, cyst on lt. ovary History of Any Multi-Drug Resistant Organisms: C-DIFF Date of last positivie culture/infection: 2013 Past Surgical History: Appendectomy, Cardiac Valve Replacement Additional Past Surgical History / Comment(s): mitral valve surgery Past Anesthesia/Blood Transfusion Reactions: Previous Problems w/ Anesthesia Additional Past Anesthesia/Blood Transfusion Reaction / Comment(s): Stopped breathing when a EGD was done Past Psychological History: Anxiety, Bipolar Smoking Status: Never smoker Past Alcohol Use History: None Reported Past Drug Use History: None Reported - Past Family History Father Additional Family Medical History / Comment(s): Bipolar and ETOH abuse Mother Additional Family Medical History / Comment(s): ETOH abuse General Exam Limitations: no limitations General appearance: alert, in no apparent distress Head exam: Present: atraumatic, normocephalic Eye exam: Present: normal appearance. Absent: scleral icterus, conjunctival injection ENT exam: Present: normal oropharynx Neck exam: Present: normal inspection Respiratory exam: Present: normal lung sounds bilaterally. Absent: respiratory distress, wheezes, rales, rhonchi, stridor, chest wall tenderness Cardiovascular Exam: Present: regular rate, normal rhythm, clicks. Absent: systolic murmur, diastolic murmur, rubs, gallop GI/Abdominal exam: Present: soft. Absent: distended, tenderness, guarding, rebound, rigid, mass Extremities exam: Present: normal inspection, normal capillary refill. Absent: pedal edema, calf tenderness Back exam: Present: normal inspection. Absent: CVA tenderness (R), CVA tenderness (L) Neurological exam: Present: alert Skin exam: Present: warm, dry, intact, normal color. Absent: rash Course Vital Signs 09/11/19 09/11/19 09/11/19 04:18 05:00 05:30 Temperature 98.1 F Pulse Rate 80 80 80 Respiratory 20 19 20 Rate Blood Pressure 145/89 117/78 124/81 O2 Sat by Pulse 98 98 95 Oximetry 09/11/19 06:00 Temperature Pulse Rate 79 Respiratory 18 Rate Blood Pressure 129/91 O2 Sat by Pulse 96 Oximetry Chest Pain MDM - MDM Patient's 59-year-old woman with history of valve replacement, presenting to be evaluated for substernal chest pain. She also had concerns about possible accidental extra dose of her Coumadin. I discussed the patient's results and recommended that she stay for telemetry monitoring and serial cardiac enzymes, the patient states that she is wanting to leave now and will follow up with her animal sticker. We discussed appropriate further care and follow-up as well as return parameters. Disposition Clinical Impression: Chest pain Disposition: HOME SELF-CARE Condition: Good Instructions (If sedation given, give patient instructions): Chest Pain (ED) Is patient prescribed a controlled substance at d/c from ED?: No Referrals: Melissa Durham MD [Primary Care Provider] - 1-2 days Cabrera Draper MD [STAFF PHYSICIAN] - 1-2 days
[2019-09-11 04:56] LABS: HCT 31.8 % (34.0-46.0); HGB 11.5 gm/dL (11.4-16.0); MCH 30.1 pg (25.0-35.0); MCHC 36.1 g/dL (31.0-37.0); MCV 83.4 fL (80.0-100.0); Mean Platelet Volume 5.7; Platelet Count 244 k/uL (150-450); RBC 3.81 m/uL (3.80-5.40); RDW 13.1 % (11.5-15.5); WBC 5.1 k/uL (3.8-10.6)
[2019-09-11 04:58] LABS: ALT 30 U/L (9-52); AST 31 U/L (14-36); African American GFR (CKD) >90 (>60 ml/min/1.73 sqM); Alkaline Phosphatase 76 U/L (38-126); Amylase 59 U/L (30-110); Anion Gap 10 mmol/L; Blood Urea Nitrogen 16 mg/dL (7-17); Calcium 9.1 mg/dL (8.4-10.2); Carbon Dioxide 23 mmol/L (22-30); Chloride 99 mmol/L (98-107); Glucose 200 mg/dL (74-99); Magnesium 1.2 mg/dL (1.6-2.3); Potassium 4.5 mmol/L (3.5-5.1); Sodium 132 mmol/L (137-145); Total Bilirubin 0.4 mg/dL (0.2-1.3); Total Protein 6.6 g/dL (6.3-8.2)
[2019-09-11 05:06] LABS: D-Dimer 0.22 mg/L FEU (<0.60); INR 1.7 (<1.2); Partial Thromboplastin Time 33.6 sec (22.0-30.0); Prothrombin Time 16.9 sec (9.0-12.0)
--- NOTE | 2019-09-11 05:28 | XR ---
EXAM: XR Chest, 2 Views CLINICAL HISTORY: Chest Pain TECHNIQUE: Frontal and lateral views of the chest. COMPARISON: July 31, 2018. FINDINGS: Lungs: Low lung volumes with elevated right hemidiaphragm. No focal consolidative process. Pleural space: Unremarkable. No pleural effusions. No pneumothorax. Heart: Borderline prominent cardiac silhouette, stable. Prosthetic cardiac valve. Mediastinum: Unremarkable. Bones/joints: Sternotomy wires and mediastinal clips. IMPRESSION: No acute cardiopulmonary process.
[2019-09-11 05:29] LABS: Band Neutrophils % 3 %; Lymphocytes # (M) 2.19 k/uL (1.0-4.8); Neutrophils % (M) 48 %; Nucleated Red Blood Cells 0 /100 WBC (0-0); Total Cells Counted 100
[2019-09-11 05:31] LABS: Anisocytosis (M) Present; Polychromasia Present
[2019-09-11 05:32] LABS: Poikilocytosis (M) Present
[2019-09-11 06:17] VITALS: BP 137/97; PULSE 86; RESP 20; TEMP 98.5
== END 2019-09-11 06:16 | disposition home or self-care (01) ==
LOC: EC 04:06
DX: R07.2 Precordial pain (principal); R07.89 Other chest pain; E11.9 Type 2 diabetes mellitus without complications; K21.9 Gastro-esophageal reflux disease without esophagitis; E78.5 Hyperlipidemia, unspecified; I10 Essential (primary) hypertension; E07.9 Disorder of thyroid, unspecified; F31.9 Bipolar disorder, unspecified; F41.9 Anxiety disorder, unspecified; Z88.5 Allergy status to narcotic agent; Z79.01 Long term (current) use of anticoagulants; Z79.4 Long term (current) use of insulin; Z79.890 Hormone replacement therapy; Z79.899 Other long term (current) drug therapy; Z95.2 Presence of prosthetic heart valve; Z98.890 Other specified postprocedural states
CPT/HCPCS: 36415; 71046; 80053; 82150; 83690; 83735; 84484; 85025; 85379; 85610; 85730; 93005; 99285

== ENCOUNTER 2020-05-14 13:39 | Emergency (ER) | payer MEDICARE, OTHER ==
--- NOTE | 2020-05-14 14:24 | ED ---
Female Urogenital HPI - General Chief complaint: Urogenital Stated complaint: bladder infection Time Seen by Provider: 05/14/20 13:53 Source: patient Mode of arrival: ambulatory Limitations: no limitations - History of Present Illness Initial comments: Patient is a 60-year-old female presenting to the emergency Department with complaints of a possible UTI. Patient states she is having some mild suprapubic pain that also extends around her left side toward her left kidney. She states this is intermittent but has been increasing over the past 3-4 days. 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 She denies history of kidney stones. She states she is done with that now but states she knows when she is getting a UTI. She denies any fever, chills, nausea, vomiting. She has no further complaints at this time. Upon arrival to the ER her vital signs stable. - Related Data Home Medications Medication Instructions Recorded Confirmed Fenofibrate Nanocrystallized 145 mg PO HS 06/04/16 04/18/19 [Tricor] Levothyroxine Sodium [Synthroid] 100 mcg PO AC-BRKFST 06/04/16 04/18/19 Venlafaxine HCl ER [Effexor XR] 300 mg PO DAILY 06/04/16 04/18/19 Atorvastatin [Lipitor] 80 mg PO DAILY 07/20/16 04/18/19 Insulin Aspart [NovoLOG Flexpen] 10 units SQ AC-TID 07/20/16 04/18/19 Insulin Glargine,Hum.rec.anlog 35 unit SQ BID 07/31/18 04/18/19 [Basaglar Kwikpen U-100] OLANZapine 20 mg PO DAILY 07/31/18 04/18/19 Metoprolol Succinate (ER) [Toprol 100 mg PO DAILY 04/18/19 04/18/19 Xl] Omeprazole [PriLOSEC] 10 mg PO DAILY 04/18/19 04/18/19 Pioglitazone [Actos] 15 mg PO DAILY 04/18/19 04/18/19 Vitamin E 1,000 unit PO DAILY 04/18/19 04/18/19 Warfarin Sodium [Coumadin] 7.5 mg PO SUMOTUWEFRSA 04/18/19 04/18/19 Warfarin [Coumadin] 5 mg PO TH 04/18/19 04/18/19 clonazePAM [KlonoPIN] 1 mg PO DAILY PRN 04/18/19 04/18/19 metFORMIN HCL 1,000 mg PO BID 04/18/19 04/18/19 Previous Rx's Medication Instructions Recorded Cephalexin [Keflex] 500 mg PO Q6HR 10 Days #40 cap 08/08/19 Allergies Allergy/AdvReac Type Severity Reaction Status Date / Time codeine AdvReac Nausea & Verified 05/14/20 13:40 Vomiting Review of Systems ROS Statement: Those systems with pertinent positive or pertinent negative responses have been documented in the HPI. ROS Other: All systems not noted in ROS Statement are negative. Past Medical History Past Medical History: Diabetes Mellitus, GERD/Reflux, Hyperlipidemia, Hypertension, Thyroid Disorder Additional Past Medical History / Comment(s): Rheumatic fever when she was 11. Scar tissue remains on the heart, cyst on lt. ovary History of Any Multi-Drug Resistant Organisms: None Reported Date of last positivie culture/infection: 2013 Past Surgical History: Appendectomy, Cardiac Valve Replacement Additional Past Surgical History / Comment(s): mitral valve surgery Past Anesthesia/Blood Transfusion Reactions: Previous Problems w/ Anesthesia Additional Past Anesthesia/Blood Transfusion Reaction / Comment(s): Stopped breathing when a EGD was done Past Psychological History: Anxiety, Bipolar Smoking Status: Never smoker Past Alcohol Use History: None Reported Past Drug Use History: None Reported - Past Family History Father Additional Family Medical History / Comment(s): Bipolar and ETOH abuse Mother Additional Family Medical History / Comment(s): ETOH abuse General Exam - General Exam Comments Initial Comments: GENERAL: Well-appearing, well-nourished and in no acute distress. HEAD: Atraumatic, normocephalic. EYES: Pupils equal round and reactive to light, extraocular movements intact, sclera anicteric, conjunctiva are normal. ENT: TMs normal, nares patent, oropharynx clear without exudates. Moist mucous membranes. NECK: Normal range of motion, supple without lymphadenopathy or JVD. LUNGS: Breath sounds clear to auscultation bilaterally and equal. No wheezes rales or rhonchi. HEART: Regular rate and rhythm without murmurs, rubs or gallops. ABDOMEN: Mild suprapubic tenderness, no other abdominal pain, no flank pain. Soft, normoactive bowel sounds. No guarding, no rebound. No masses appreciated. : Deferred EXTREMITIES: Normal range of motion, no pitting or edema. No clubbing or cyanosis. NEUROLOGICAL: Normal speech, normal gait. PSYCH: Normal mood, normal affect. SKIN: Warm, Dry, normal turgor, no rashes or lesions noted. Limitations: no limitations Course Vital Signs 05/14/20 13:40 Temperature 98.2 F Pulse Rate 94 Respiratory 18 Rate Blood Pressure 142/80 O2 Sat by Pulse 96 Oximetry Medical Decision Making - Medical Decision Making Patient is a 60-year-old female here with concerns for UTI. Her vitals are stable. On exam, only mild suprapubic tenderness. Urine reveals 4+ glucose, no signs of bacteria or WBCs. I discussed these findings with the patient. She does admit to being a diabetic and recently switching insulins. I discussed with patient to increase her water intake over the next few days and to follow up with her PCP. She is in agreement with this plan of care. Return parameters were discussed with the patient she verbalized understanding. Case discussed with Dr. Diaz. - Lab Data Lab Results 05/14/20 Range/Units 14:15 Urine Color Yellow Urine Appearance Clear (Clear) Urine pH 6.0 (5.0-8.0) Ur Specific [place] 1.005 (1.001-1.035) Urine Protein Negative (Negative) Urine Glucose (UA) 4+ H (Negative) Urine Ketones Negative (Negative) Urine Blood Small (Negative) Urine Nitrite Negative (Negative) Urine Bilirubin Negative (Negative) Urine Urobilinogen <2.0 (<2.0) mg/dL Ur Leukocyte Esterase Negative (Negative) Urine RBC <1 (0-5) /hpf Urine WBC <1 (0-5) /hpf Ur Squamous Epith Cells <1 (0-4) /hpf Disposition Clinical Impression: Dysuria Disposition: HOME SELF-CARE Condition: Stable Instructions (If sedation given, give patient instructions): Normal Exam (ED) Additional Instructions: Please return to the Emergency Department if symptoms worsen or any other concerns. Increase water intake over the next few days. If symptoms persist follow-up with PCP. Return to the ER for fever, vomiting, increasing pain. Is patient prescribed a controlled substance at d/c from ED?: No Referrals: Benton Galan MD [Primary Care Provider] - 1-2 days
[2020-05-14 14:56] LABS: Appearance,Urine Clear (Clear); Bilirubin,Urine Negative (Negative); Blood,Urine Small (Negative); Color,Urine Yellow; Glucose,Urine (UA) 4+ (Negative); Ketones,Urine Negative (Negative); Leukocyte Esterase,Urine Negative (Negative); Nitrite,Urine Negative (Negative); Protein,Urine Negative (Negative); Specific Gravity,Urine 1.005 (1.001-1.035); Urobilinogen,Urine <2.0 mg/dL (<2.0)
[2020-05-14 15:01] LABS: RBC,Urine <1 /hpf (0-5); Squamous Epithelial Cell,Urine <1 /hpf (0-4); WBC,Urine <1 /hpf (0-5)
[2020-05-14 15:35] VITALS: BP 132/86; PULSE 96; RESP 19; TEMP 99.4
== END 2020-05-14 15:39 | disposition home or self-care (01) ==
LOC: EC 13:39
DX: R30.0 Dysuria (principal); R10.2 Pelvic and perineal pain; E11.9 Type 2 diabetes mellitus without complications; K21.9 Gastro-esophageal reflux disease without esophagitis; E78.5 Hyperlipidemia, unspecified; F41.9 Anxiety disorder, unspecified; F31.9 Bipolar disorder, unspecified; I10 Essential (primary) hypertension; E07.9 Disorder of thyroid, unspecified; Z79.890 Hormone replacement therapy; Z79.4 Long term (current) use of insulin; Z79.01 Long term (current) use of anticoagulants; Z79.899 Other long term (current) drug therapy; Z88.5 Allergy status to narcotic agent; Z95.818 Presence of other cardiac implants and grafts
CPT/HCPCS: 81001; 99284

== ENCOUNTER → 2020-07-28 | Outpatient (CLI) | payer MEDICARE, OTHER | END | disposition home or self-care (01) | LOC: LABWHC1 09:22 | PROVIDERS: ATTEND Family Medicine | DX: Z03.818 Encounter for observation for suspected exposure to other biological agents ruled out (principal) | CPT/HCPCS: U0003; C9803 ==

== ENCOUNTER 2020-08-22 04:10 | Emergency (ER) | payer MEDICARE, OTHER ==
[2020-08-22 04:17] VITALS: RESP 18; TEMP 98.1
--- NOTE | 2020-08-22 04:18 | ED ---
Allergic Reaction HPI - General Chief complaint: Allergic Reaction Stated complaint: Allergic Reaction Time Seen by Provider: 08/22/20 04:17 Source: patient, EMS Mode of arrival: EMS Limitations: no limitations - History of Present Illness Initial Comments: Linda is a 60-year-old female presents to the ER today for evaluation of tongue swelling that resolved prior to arrival. Patient reports that yesterday evening she was having some low back pain which is not atypical. She took 3 Tylenol PM and then took a sleep aid which contained 25 mg of Benadryl. Patient reports that when she was laying down she felt like her heart beating too slow she then sat up and felt like she had very dry mouth and her tongue was swollen. She states she fell and she had trouble drinking water. She states that she called 911 and they treated her with a dose of Benadryl intramuscular she reports the swelling of her tongue has resolved and she is feeling better at this time. - Related Data Home Medications Medication Instructions Recorded Confirmed Fenofibrate Nanocrystallized 145 mg PO HS 06/04/16 05/14/20 [Tricor] Levothyroxine Sodium [Synthroid] 100 mcg PO AC-BRKFST 06/04/16 05/14/20 Venlafaxine HCl ER [Effexor XR] 300 mg PO DAILY 06/04/16 05/14/20 Atorvastatin [Lipitor] 80 mg PO DAILY 07/20/16 05/14/20 Insulin Aspart [NovoLOG Flexpen] 10 units SQ AC-TID 07/20/16 05/14/20 Insulin Glargine,Hum.rec.anlog 35 unit SQ BID 07/31/18 05/14/20 [Basaglar Kwikpen U-100] OLANZapine 20 mg PO DAILY 07/31/18 05/14/20 Metoprolol Succinate (ER) [Toprol 100 mg PO DAILY 04/18/19 05/14/20 Xl] Omeprazole [PriLOSEC] 10 mg PO DAILY 04/18/19 05/14/20 Pioglitazone [Actos] 15 mg PO DAILY 04/18/19 05/14/20 Vitamin E 1,000 unit PO DAILY 04/18/19 05/14/20 Warfarin Sodium [Coumadin] 7.5 mg PO SUMOTUWEFRSA 04/18/19 05/14/20 Warfarin [Coumadin] 5 mg PO TH 04/18/19 05/14/20 clonazePAM [KlonoPIN] 1 mg PO DAILY PRN 04/18/19 05/14/20 metFORMIN HCL 1,000 mg PO BID 04/18/19 05/14/20 Allergies Allergy/AdvReac Type Severity Reaction Status Date / Time codeine AdvReac Nausea & Verified 05/14/20 13:40 Vomiting Review of Systems ROS Statement: Those systems with pertinent positive or pertinent negative responses have been documented in the HPI. ROS Other: All systems not noted in ROS Statement are negative. Past Medical History Past Medical History: Diabetes Mellitus, GERD/Reflux, Hyperlipidemia, Hypertension, Thyroid Disorder Additional Past Medical History / Comment(s): Rheumatic fever when she was 11. Scar tissue remains on the heart, cyst on lt. ovary History of Any Multi-Drug Resistant Organisms: None Reported Date of last positivie culture/infection: 2013 Past Surgical History: Appendectomy, Cardiac Valve Replacement Additional Past Surgical History / Comment(s): mitral valve surgery Past Anesthesia/Blood Transfusion Reactions: Previous Problems w/ Anesthesia Additional Past Anesthesia/Blood Transfusion Reaction / Comment(s): Stopped breathing when a EGD was done Past Psychological History: Anxiety, Bipolar Smoking Status: Never smoker Past Alcohol Use History: Occasional Past Drug Use History: None Reported - Past Family History Father Additional Family Medical History / Comment(s): Bipolar and ETOH abuse Mother Additional Family Medical History / Comment(s): ETOH abuse General Exam - General Exam Comments Initial Comments: Physical Exam GENERAL: Patient is well-developed and well-nourished. Patient is nontoxic and well-hydrated and is in no distress. HENT: Normocephalic, Atraumatic. Normal oropharynx No edema of the lips and tongue or uvula EYES: PERRL, EOMI PULMONARY: Unlabored respirations. CARDIOVASCULAR: RRR Warm and well perfused extremities ABDOMEN: Non-distended SKIN: No rashes or bruising : Deferred NEUROLOGIC: Alert and oriented Normal speech Normal gait MUSCULOSKELETAL: Moving all extremities with no apparent injury PSYCHIATRIC: No SI/HI Limitations: no limitations Course Vital Signs 08/22/20 04:12 Temperature 98.1 F Pulse Rate 82 Respiratory 18 Rate Blood Pressure 136/80 O2 Sat by Pulse 96 Oximetry Medical Decision Making - Medical Decision Making The patient was seen and evaluated history is obtained from patient History and physical exam are relatively unremarkable patient was concerned that her tongue may have been swollen prior to arrival however this has resolved she is hemodynamically stable with no complaints Patient was able to drink plenty water while in the emergency department she is tolerating oral intake. Patient was observed for 45 minutes with no change in her condition she is requesting discharge home at this time as she remains asymptomatic Disposition Clinical Impression: Allergic reaction Disposition: HOME SELF-CARE Condition: Stable Additional Instructions: As we discussed your symptoms had resolved prior to arrival, make sure staying hydrated call 911 or return to the ER if he have any recurrence of symptoms Is patient prescribed a controlled substance at d/c from ED?: No Referrals: Benton Galan MD [Primary Care Provider] - 1-2 days
[2020-08-22 05:11] VITALS: BP 148/82; PULSE 81
== END 2020-08-22 05:07 | disposition home or self-care (01) ==
LOC: EC 04:10
DX: T78.40XA Allergy, unspecified, initial encounter (principal); G47.33 Obstructive sleep apnea (adult) (pediatric); I10 Essential (primary) hypertension; E11.9 Type 2 diabetes mellitus without complications; K21.9 Gastro-esophageal reflux disease without esophagitis; E78.5 Hyperlipidemia, unspecified; E07.9 Disorder of thyroid, unspecified; F31.9 Bipolar disorder, unspecified; F41.9 Anxiety disorder, unspecified; Z79.890 Hormone replacement therapy; Z79.01 Long term (current) use of anticoagulants; Z79.4 Long term (current) use of insulin; Z79.899 Other long term (current) drug therapy; Z79.84 Long term (current) use of oral hypoglycemic drugs; Z88.5 Allergy status to narcotic agent
CPT/HCPCS: 99283 ×2; G0399

== ENCOUNTER → 2020-09-29 | Outpatient (CLI) | payer MEDICARE, OTHER ==
[2020-09-29 19:12] LABS: INR 2.39 (0.90-1.11); Prothrombin Time 24.6 sec (9.9-11.9)
[2020-09-29 21:08] LABS: African American GFR (CKD) 81.7 (60.0-200.0); Albumin 4.6 g/dL (3.80-4.90); Albumin/Globulin Ratio 2.09 (1.60-3.17); Anion Gap 11.7 mmol/L (4.00-12.00); BUN/Creat Ratio 14.44 Ratio (12.00-20.00); Carbon Dioxide 22.3 mmol/L (21.6-31.8); Chol/HDL Ratio 4.56; Globulin 2.2 g/dL (1.6-3.3); Non-African American GFR(CKD) 70.5 (60.0-200.0); Potassium 4.7 mmol/L (3.5-5.5); Total Bilirubin 0.5 mg/dL (0.3-1.2); Total Protein 6.8 g/dL (6.2-8.2)
== END | disposition home or self-care (01) ==
LOC: LABWHC1 12:06
PROVIDERS: ATTEND Nurse Practitioner Adult Health
DX: Z01.818 Encounter for other preprocedural examination (principal); E78.2 Mixed hyperlipidemia; I10 Essential (primary) hypertension
CPT/HCPCS: 36415; 80053; 80061; 83721; 85610

== ENCOUNTER → 2021-01-05 | Outpatient (CLI) | payer MEDICARE, OTHER ==
[2021-01-05 13:12] VITALS: BP 127/84; TEMP 98.2; BMI 39.2
--- NOTE | 2021-01-05 14:12 | P.HPBAR ---
Bariatric H&P - History & Physicial H&P Date: 01/05/21 History & Physicial: Visit/CC: initial clinic visit Patient initial contact: Initial weight: Initial weight in pounds: Height: 5 ft 3.5 in Initial BMI: Last weight: Current weight: 102.058 kg Current weight in pounds: 225.00 Current BMI: 39.2 [place] body weight (based on NIH guidelines): 53.297 kg Excess body weight loss: The patient is a 60 year-old F who presents for Bariatric Assessment. 60-year-old female presents today to discuss surgical bariatric options. Patient is interested in sleeve gastrectomy. Patient says she has difficulty with her weight ever since her last childbirth. Patient with history of diabete s, hypercholesterolemia, hypertension, dyspnea on exertion. History of previous aortic valve replacement in 2012. On Coumadin. Only abdominal surgery is appendectomy. History of heavy alcohol use in the distant past. No liver problems that she is aware of. BMI 39. Her heaviest weight 235. Previously saw [facility] for possible sleeve gastrectomy but did not follow through at that time. No dysphasia symptoms. No history of DVT. Review of Systems The patient denies any acute changes in vision or hearing, no dysphagia or odynophagia, no chest pain or shortness of breath, no dysuria or hematuria, no headache, no runny nose, no rectal bleeding or melena, no unexplained weight loss Past Medical History Past Medical History: Diabetes Mellitus, GERD/Reflux, Hyperlipidemia, Hypertension, Thyroid Disorder Additional Past Medical History / Comment(s): Rheumatic fever when she was 11. Scar tissue remains on the heart, cyst on lt. ovary History of Any Multi-Drug Resistant Organisms: None Reported Year Discovered:: 2013 Past Surgical History: Appendectomy, Cardiac Valve Replacement, Section, Orthopedic Surgery Additional Past Surgical History / Comment(s): mitral valve surgery left knee replacement Past Anesthesia/Blood Transfusion Reactions: Previous Problems w/ Anesthesia Additional Past Anesthesia/Blood Transfusion Reaction / Comm: Stopped breathing when a EGD was done Past Psychological History: Anxiety, Bipolar Smoking Status: Never smoker Past Alcohol Use History: Occasional Past Drug Use History: None Reported - Past Family History Father Additional Family Medical History / Comment(s): Bipolar and ETOH abuse Mother Additional Family Medical History / Comment(s): ETOH abuse Surgical - Exam Vital Signs Temp BP 98.2 F 127/84 02/11/21 13:10 01/05/21 13:10 Physical exam: General: Well-developed, well-nourished HEENT: Normocephalic, sclerae nonicteric Abdomen: Nontender, nondistended Extremities: No edema Neuro: Alert and oriented Bariatric Assessment & Plan (1) Obesity (BMI 30-39.9) Narrative/Plan: 60-year-old female with obesity and comorbidities. Patient interested in sleeve gastrectomy. Initially she stated that she was interested in losing at least 100 pounds. We discussed the risks and benefits of sleeve gastrectomy and gastric bypass in detail. We also discussed the anticipated average weight loss. She was informed that she likely would lose more weight with gastric bypass and that with both surgery would likely not lose a total 100 pounds. Patient is not interested in gastric bypass. Would like to proceed with sleeve gastrectomy. The risks of bleeding, infection, stenosis, stricture, leak, abscess, fistula formation, peritonitis, poor weight loss, reflux, vomiting, conversion to an open procedure, aborting sleeve gastrectomy, IL, PE, DVT, and were discussed. The patient understands and wishes to proceed. We'll obtain cardiac clearance at this time. Patient does not require supervised weight loss. Anticipate scheduling for upper endoscopy in the next month or so. Status: Acute Bariatric Checklist Checklist: Plan: Checklist: EGD: 1. Hiatal hernia: 2. H. Pylori: HgbA1c: Vitamin D: Smoking: Never smoker Primary care physician referral: ileana oneil Psychiatry clearance: Cardiology clearance: Sleep study: Diet journal: VTE risk score: VTE risk level: Rehab needs at discharge:
[2021-01-05 14:40] LABS: HCT 33.1 % (34.0-46.0); HGB 11.3 gm/dL (11.4-16.0); MCH 29.9 pg (25.0-35.0); MCHC 34.1 g/dL (31.0-37.0); MCV 87.8 fL (80.0-100.0); Mean Platelet Volume 6.7; Platelet Count 304 k/uL (150-450); RBC 3.76 m/uL (3.80-5.40); RDW 14.7 % (11.5-15.5); WBC 4.3 k/uL (3.8-10.6)
[2021-01-05 15:03] VITALS: PULSE 90
[2021-01-05 20:06] LABS: African American GFR (CKD) 94.2 (60.0-200.0); Albumin 4.7 g/dL (3.80-4.90); Albumin/Globulin Ratio 2.94 (1.60-3.17); BUN/Creat Ratio 17.5 Ratio (12.00-20.00); Calcium 9.2 mg/dL (8.7-10.3); Globulin 1.6 g/dL (1.6-3.3); Non-African American GFR(CKD) 81.3 (60.0-200.0); Potassium 4.8 mmol/L (3.5-5.5); Total Bilirubin 0.5 mg/dL (0.3-1.2); Total Protein 6.3 g/dL (6.2-8.2)
[2021-01-05 20:58] LABS: Folate, Serum 21.9 ng/mL
[2021-01-05 21:44] LABS: Hemoglobin A1C 6.4 % (4.0-6.0)
== END | disposition home or self-care (01) ==
LOC: BARWHC3 12:09
PROVIDERS: ATTEND Surgery
DX: E66.9 Obesity, unspecified (principal); K90.89 Other intestinal malabsorption; E55.9 Vitamin D deficiency, unspecified; Z68.39 Body mass index [BMI] 39.0-39.9, adult; Z90.49 Acquired absence of other specified parts of digestive tract
CPT/HCPCS: 84425; 80053; 82607; 82746; 83540; 85027; 82306; 83036; G0463; 99211

== ENCOUNTER 2021-02-07 07:13 | Day surgery (SDC) | payer MEDICARE, OTHER ==
[2021-02-02 14:59] VITALS: BMI 37.8
[~2021-02-07 07:13] MED LIST changes: +LACTATED RINGERS 1,000 ML IV SCH; +LIDOCAINE 1% (10MG/ML) FOR IV START INTRADERMA PRN; -REGADENOSON 0.4 MG/5 ML SYRINGE IV ONE
[2021-02-07 07:39] VITALS: RESP 16; TEMP 97.1
[2021-02-07 08:04] LABS: Glucose,Whole Blood 236 mg/dL (75-99)
[2021-02-07] MEDS ORDERED: PROPOFOL 10 MG/ML 20 ML VIAL IV ONE (08:10)
[2021-02-07] MEDS ORDERED: LIDOCAINE 1% INJ 10MG/ML (20 ML MDV) ONE (08:10)
--- NOTE | 2021-02-07 08:13 | P.GSHP ---
History of Present Illness H&P Date: 02/07/21 Chief Complaint: GERD Patient here today for upper endoscopy. Patient with mild reflux. Being evaluated for sleep gastrectomy. No dysphagia. Past Medical History Past Medical History: Diabetes Mellitus, GERD/Reflux, Hyperlipidemia, Hypertension, Thyroid Disorder Additional Past Medical History / Comment(s): Rheumatic fever when she was 11. Scar tissue remains on the heart, cyst on lt. ovary History of Any Multi-Drug Resistant Organisms: None Reported Date of last positivie culture/infection: 2013 Past Surgical History: Appendectomy, Cardiac Valve Replacement, Section, Orthopedic Surgery Additional Past Surgical History / Comment(s): mitral valve surgery left knee replacement Past Anesthesia/Blood Transfusion Reactions: Previous Problems w/ Anesthesia Additional Past Anesthesia/Blood Transfusion Reaction / Comment(s): Stopped breathing when a EGD was done Past Psychological History: Anxiety, Bipolar - Past Family History Father Additional Family Medical History / Comment(s): Bipolar and ETOH abuse Mother Additional Family Medical History / Comment(s): ETOH abuse Medications and Allergies Home Medications Medication Instructions Recorded Confirmed Type Ergocalciferol [Vitamin D2 (1250 1,250 mcg PO LEON 02/02/21 02/02/21 History Mcg = 83439 Iu)] Fenofibrate Nanocrystallized 145 mg PO DAILY 02/02/21 02/02/21 History [Fenofibrate] INSULIN ASPART (NovoLOG) [NovoLOG 15 units SQ AC-TID 02/02/21 02/02/21 History (formulary)] Insulin Glargine,Hum.rec.anlog 300 unit SQ QAM 02/02/21 02/02/21 History [Basaglar Carlosikpen U-100] Levothyroxine Sodium [Synthroid] 112 mcg PO DAILY 02/02/21 02/02/21 History Metoprolol Succinate (ER) [Toprol 100 mg PO DAILY 02/02/21 02/02/21 History Xl] OLANZapine [ZyPREXA] 20 mg PO HS 02/02/21 02/02/21 History Venlafaxine HCl [Effexor XR] 300 mg PO DAILY 02/02/21 02/02/21 History Vitamin E 1,000 unit PO DAILY 02/02/21 02/02/21 History Warfarin [Coumadin] 10 mg PO DAILY 02/02/21 02/02/21 History clonazePAM 1 mg PO BID PRN 02/02/21 02/02/21 History lisinopriL [Zestril] 5 mg PO DAILY 02/02/21 02/02/21 History metFORMIN HCL 1,000 mg PO BID 02/02/21 02/02/21 History Atorvastatin [Lipitor] 80 mg PO DAILY 02/07/21 02/07/21 History Allergies Allergy/AdvReac Type Severity Reaction Status Date / Time codeine AdvReac Nausea & Verified 02/07/21 07:37 Vomiting Surgical - Exam Vital Signs Temp Pulse Resp BP Pulse Ox 97.1 F L 89 16 169/92 96 02/07/21 07:37 02/07/21 07:37 02/07/21 07:37 02/07/21 07:37 02/07/21 07:37 Physical exam: General: Well-developed, well-nourished HEENT: Normocephalic, sclerae nonicteric Abdomen: Nontender, nondistended Extremities: No edema Neuro: Alert and oriented Results - Labs Abnormal Lab Results - Last 24 Hours (Table) 02/07/21 Range/Units 07:47 POC Glucose (mg/dL) 236 H (75-99) mg/dL Assessment and Plan (1) GERD (gastroesophageal reflux disease) Narrative/Plan: Will proceed with upper endoscopy Current Visit: Yes Status: Acute Code(s): K21.9 - GASTRO-ESOPHAGEAL REFLUX DISEASE WITHOUT ESOPHAGITIS SNOMED Code(s): 363319885
--- NOTE | 2021-02-07 08:22 | P.PCN ---
Date of Procedure: 02/07/21 Procedure(s) Performed: Preoperative Dx: GERD Postoperative Dx: Mild gastritis Procedure: EGD with Bx Anesthesia: Sedation Endoscopist: Dr. Durham Specimens: Antrum Endoscopic Procedure: The patient was on the endoscopy table in the left decubitus position. The Olympus gastroscope was inserted into the oropharynx and passed under direct visualization to the region of the third portion of the duodenum. From that point the scope was slowly withdrawn inspecting all surfaces carefully. There were no neoplastic inflammatory or polypoid lesions throughout the duodenum. The pylorus was widely patent. The stomach was carefully inspected. There was mild gastritis present. A biopsy of the antrum took place to rule out H. pylori. Retroflexion revealed a normal hiatus. The esophagus was then carefully examined. There were no neoplastic inflammatory or polypoid lesions throughout the visualized esophagus. The patient was then taken to the recovery room in stable condition per anesthesia guidelines. Recommendations: Resume diet. Await biopsies. Follow-up bariatric center.
[2021-02-07 08:46] VITALS: BP 130/88; PULSE 80
== END 2021-02-07 09:05 | disposition home or self-care (01) ==
LOC: ORWHC2ENDO 07:13
PROVIDERS: ATTEND Surgery
DX: K29.50 Unspecified chronic gastritis without bleeding (principal); K21.9 Gastro-esophageal reflux disease without esophagitis; E11.9 Type 2 diabetes mellitus without complications; I10 Essential (primary) hypertension; E78.5 Hyperlipidemia, unspecified; E07.9 Disorder of thyroid, unspecified; F41.9 Anxiety disorder, unspecified; F31.9 Bipolar disorder, unspecified; N83.202 Unspecified ovarian cyst, left side; E66.9 Obesity, unspecified; Z68.36 Body mass index [BMI] 36.0-36.9, adult; Z90.49 Acquired absence of other specified parts of digestive tract; Z95.2 Presence of prosthetic heart valve; Z79.01 Long term (current) use of anticoagulants; Z79.890 Hormone replacement therapy; Z79.4 Long term (current) use of insulin; Z79.899 Other long term (current) drug therapy; Z88.5 Allergy status to narcotic agent; Z98.891 History of uterine scar from previous surgery; Z96.652 Presence of left artificial knee joint; Z98.890 Other specified postprocedural states
CPT/HCPCS: 88305; 43239; J2001; J2704

== ENCOUNTER 2021-04-04 01:22 | Inpatient (IN) | payer MEDICARE, OTHER ==
--- NOTE | 2021-04-04 01:51 | ED ---
Chest Pain HPI - General Chief Complaint: Chest Pain Stated Complaint: Chest Pressure Time Seen by Provider: 04/04/21 01:51 Source: patient, EMS Mode of arrival: EMS Limitations: no limitations - Related Data Home Medications Medication Instructions Recorded Confirmed Ergocalciferol [Vitamin D2 (1250 1,250 mcg PO LEON 02/02/21 02/02/21 Mcg = 23372 Iu)] Fenofibrate Nanocrystallized 145 mg PO DAILY 02/02/21 02/02/21 [Fenofibrate] INSULIN ASPART (NovoLOG) [NovoLOG 15 units SQ AC-TID 02/02/21 02/02/21 (formulary)] Insulin Glargine,Hum.rec.anlog 300 unit SQ QAM 02/02/21 02/02/21 [Basaglar Kwikpen U-100] Levothyroxine Sodium [Synthroid] 112 mcg PO DAILY 02/02/21 02/02/21 Metoprolol Succinate (ER) [Toprol 100 mg PO DAILY 02/02/21 02/02/21 Xl] OLANZapine [ZyPREXA] 20 mg PO HS 02/02/21 02/02/21 Venlafaxine HCl [Effexor XR] 300 mg PO DAILY 02/02/21 02/02/21 Vitamin E (Dl,Tocopheryl Acet) 1,000 unit PO DAILY 02/02/21 02/02/21 [Vitamin E] Warfarin [Coumadin] 10 mg PO DAILY 02/02/21 02/02/21 clonazePAM 1 mg PO BID PRN 02/02/21 02/02/21 lisinopriL [Zestril] 5 mg PO DAILY 02/02/21 02/02/21 metFORMIN HCL 1,000 mg PO BID 02/02/21 02/02/21 Atorvastatin [Lipitor] 80 mg PO DAILY 02/07/21 02/07/21 Allergies Allergy/AdvReac Type Severity Reaction Status Date / Time codeine AdvReac Nausea & Verified 02/07/21 07:37 Vomiting Review of Systems ROS Statement: Those systems with pertinent positive or pertinent negative responses have been documented in the HPI. ROS Other: All systems not noted in ROS Statement are negative. EKG Findings - EKG Comments: EKG Findings:: EKG shows sinus rhythm 84 ND 134 QRS 80 QTc 479 Past Medical History Past Medical History: Diabetes Mellitus, GERD/Reflux, Hyperlipidemia, Hypertension, Thyroid Disorder Additional Past Medical History / Comment(s): Rheumatic fever when she was 11. Scar tissue remains on the heart, cyst on lt. ovary History of Any Multi-Drug Resistant Organisms: None Reported Date of last positivie culture/infection: 2013 Past Surgical History: Appendectomy, Cardiac Valve Replacement, Section, Orthopedic Surgery Additional Past Surgical History / Comment(s): mitral valve surgery left knee replacement Past Anesthesia/Blood Transfusion Reactions: Previous Problems w/ Anesthesia Additional Past Anesthesia/Blood Transfusion Reaction / Comment(s): Stopped b reathing when a EGD was done Past Psychological History: Anxiety, Bipolar Smoking Status: Never smoker Past Alcohol Use History: Heavy Past Drug Use History: None Reported - Past Family History Father Additional Family Medical History / Comment(s): Bipolar and ETOH abuse Mother Additional Family Medical History / Comment(s): ETOH abuse General Exam Limitations: no limitations Course Vital Signs 04/04/21 01:39 Temperature 98.2 F Pulse Rate 83 Respiratory 17 Rate Blood Pressure 125/76 O2 Sat by Pulse 97 Oximetry Disposition Clinical Impression: Chest pain, Obesity (BMI 30-39.9), Hyponatremia, Hypomagnesemia, Weakness Disposition: ADMITTED IP TO THIS HOSP Condition: Good Is patient prescribed a controlled substance at d/c from ED?: No
[2021-04-04 02:45] LABS: Basophils % (A) 1 %; Eosinophils # (A) 0.2 k/uL (0-0.7); Eosinophils % (A) 4 %; HCT 30.4 % (34.0-46.0); HGB 11.2 gm/dL (11.4-16.0); Hyperchromasia Slight; Lymphocytes % (A) 22 %; MCH 30.4 pg (25.0-35.0); MCHC 36.8 g/dL (31.0-37.0); MCV 82.4 fL (80.0-100.0); Mean Platelet Volume 6.6; Monocytes # (A) 0.3 k/uL (0-1.0); Monocytes % (A) 8 %; Neutrophils # (A) 2.7 k/uL (1.3-7.7); Neutrophils % (A) 63 %; Platelet Count 195 k/uL (150-450); RBC 3.68 m/uL (3.80-5.40); RDW 13.3 % (11.5-15.5); WBC 4.4 k/uL (3.8-10.6)
[2021-04-04 02:50] LABS: INR 4.7 (<1.2); Prothrombin Time 45.4 sec (9.0-12.0)
[2021-04-04 02:54] LABS: Potassium 3.8 mmol/L (3.5-5.1)
--- NOTE | 2021-04-04 02:55 | XR ---
EXAM: XR Chest, 2 Views CLINICAL HISTORY: ITS.REASON XR Reason: Chest Pain TECHNIQUE: Frontal and lateral views of the chest. COMPARISON: 09/11/2019 FINDINGS: Lungs: Subsegmental bibasilar opacities are similar to the previous examination. The pulmonary vasculature appears slightly more equalized from the previous examination. Pleural space: Unremarkable. No pneumothorax. No large pleural effusion. Heart: The cardiac silhouette is prominent in size. Aortic valve replacement noted. Mediastinum: : Stable. The Trachea Is Midline. Bones/joints: Unremarkable. Soft tissues: Vertical superficial skin tono are intact and stable. IMPRESSION: Subsegmental bibasilar opacities are similar to the previous examination. The pulmonary vasculature appears slightly more equalized from the previous examination. Please correlate clinically. Stable postoperative changes consistent with cardiac valve replacement.
[2021-04-04] MEDS ORDERED: MORPHINE SULFATE 4 MG/ML SYRINGE IVP STA (02:56)
[2021-04-04 02:57] LABS: ALT 27 U/L (4-34); AST 49 U/L (14-36); African American GFR (CKD) >90 (>60 ml/min/1.73 sqM); Albumin 3.6 g/dL (3.5-5.0); Alkaline Phosphatase 80 U/L (38-126); Anion Gap 8 mmol/L; Blood Urea Nitrogen 11 mg/dL (7-17); Calcium 8.1 mg/dL (8.4-10.2); Carbon Dioxide 24 mmol/L (22-30); Chloride 89 mmol/L (98-107); Glucose 234 mg/dL (74-99); Lipase 343 U/L (23-300); Non-African American GFR(CKD) >90 (>60 ml/min/1.73 sqM); Sodium 121 mmol/L (137-145); Total Bilirubin 0.5 mg/dL (0.2-1.3); Total Protein 5.7 g/dL (6.3-8.2)
[2021-04-04] MEDS ORDERED: SODIUM CHLORIDE 0.9% 1,000 ML IV STA ×2 (03:38)
[2021-04-04] MEDS ORDERED: SODIUM CHLORIDE 0.9% 500 ML 500 ML IV STA (03:38)
[2021-04-04] MEDS ORDERED: NALOXONE 0.4 MG/ML 1 ML VIAL IV PRN (03:39)
--- NOTE | 2021-04-04 04:20 | CT ---
EXAM: CT Angiography Chest With Intravenous Contrast CLINICAL HISTORY: ITS.REASON CT Reason: cp TECHNIQUE: Axial computed tomographic angiography images of the chest with intravenous contrast. CTDI is 75.77 mGy and DLP is 718.6 mGy-cm. This CT exam was performed using one or more of the following dose reduction techniques: automated exposure control, adjustment of the mA and/or kV according to patient size, and/or use of iterative reconstruction technique. MIP reconstructed images were created and reviewed. COMPARISON: No relevant prior studies available. FINDINGS: Limitations: There is respiratory artifact which degrades image quality on multiple image slices. Pulmonary arteries: No evidence for pulmonary embolism. Aorta: No acute findings. No thoracic aortic aneurysm. Lungs: Subsegmental dependent changes in the posterior lung bases and curvilinear changes in the lingular segments are noted. No focal consolidation. Pleural space: Unremarkable. No significant effusion. No pneumothorax. Heart: Aortic valve replacement noted. Cardiac chambers are normal in size. No pericardial effusion. Postsurgical changes anterior to the ascending aorta suggest prior CABG. The aorta is normal in caliber. No dissection. Mediastinum: The left hilar lymph node measures 10 mm. Additional nonspecific subcentimeter AP window and paratracheal lymph nodes identified. Bones/joints: No acute fracture. No dislocation. Soft tissues: Unremarkable. Lymph nodes: IMPRESSION: 1. No evidence for pulmonary embolism. 2. No focal consolidation with subsegmental atelectasis suggested at the lung bases. No pleural effusion or pneumothorax.
[2021-04-04] MEDS: MAGNESIUM SULFATE-D5W PMX 1 GM in DEXTROSE/WATER 1 100ML.BAG IVPB SCH ×4 (04:21→09:42)
[2021-04-04 07:31] LABS: Glucose,Whole Blood 260 mg/dL (75-99)
[2021-04-04] MEDS: INSULIN ASPART (NovoLOG) 100 UNIT/ML VIAL SQ SCH ×3 (07:51→18:17)
[2021-04-04] MEDS: MORPHINE SULFATE 4 MG/ML SYRINGE IVP PRN ×2 (08:02→11:40)
[2021-04-04] MEDS: INSULIN DETEMIR (LEVEMIR) 100 UNIT/ML SYR SQ SCH (09:41)
[2021-04-04] MEDS ORDERED: NON FORMULARY DRUG (Ascorbic Acid [Vitamin C] 1,000 MG Tablet) PO SCH (10:15)
--- NOTE | 2021-04-04 11:06 | P.CRDCN ---
History of Present Illness History of present illness: HISTORY OF PRESENTING ILLNESS This is a pleasant 60-year-old female past medical history significant for Type 2 Diabetes, Hypertension, Dyslipidemia, mechanical aortic valve replacement in 12/2012(on coumadin), total knee replacement. She follows in the office with Dr. Draper. We have been asked to see in consultation for chest pain. Patient is seen and examined in the emergency department. Patient presents emergency department with worsening weakness in her bilateral legs and headaches. She also states that she had left-sided chest pain and upper back pain. She states that the only thing that has changed was some medications were added per parking officer, she states she did not like how they made her feel and these were stopped. She denies shortness of breath, diaphoresis, nausea, abdominal pain. EKG revealed sinus rhythm, heart rate 79, early repolarization in the inferior leads, T-wave inversion in V2. These are similar to prior EKGs. Blood pressure 125/76, heart rate 83, afebrile, maintaining oxygen saturation is 97% on room air. Patient sodium was 121, potassium 3.8, serum creatinine 0.58, BUN 11, magnesium 1.0, lipase 343, troponin negative 3. BNP 70.Current cardiac medications include lisinopril 5 mg daily, Coumadin 10 mg daily metoprolol succinate 100 mg daily, atorvastatin [address] chest No acute findings. Negative for pulmonary embolism, cardiac chambers are normal in size, no pericardial effusion, aorta is of normal caliber, no dissection. No focal consolidation or pleural effusion Most recent echocardiogram 11/2019-EF 55%, mild TR, mild MR, prosthetic AV normal opening and closing. Most recent Lexiscan stress test 11/2019- Negative for reversible ischemia Most recent cardiac catheterization 11/2012-Normal coronary arteries REVIEW OF SYSTEMS At the time of my exam: CONSTITUTIONAL: Denies fever or chills. CARDIOVASCULAR: Denies chest pain, shortness of breath, orthopnea, PND or palpitations. RESPIRATORY: Denies cough. GASTROINTESTINAL: Denies abdominal pain, diarrhea, constipation, nausea or vomiting. MUSCULOSKELETAL: Denies myalgias. NEUROLOGIC: Denies numbness, tingling, headacbe or weakness. ENDOCRINE: Denies fatigue, weight change, polydipsia or polyurina. GENITOURINARY: Denies burning, hematuria or urgency with micturation. HEMATOLOGIC: Denies history of anemia or bleeding. PHYSICAL EXAMINATION CONSTITUTIONAL: No apparent distress. HEENT: Head is normocephalic. Pupils are equal, round. Sclerae anicteric. Mucous membranes of the mouth are moist. No JVD. No carotid bruit. CHEST EXAMINATION: Lungs are clear to auscultation. No chest wall tenderness is noted on palpation or with deep breathing. HEART EXAMINATION: Regular rate and rhythm. S1, S2 heard. No murmurs, gallops or rub. ABDOMEN: Soft, nontender. Positive bowel sounds. EXTREMITIES: 2+ peripheral pulses, no lower extremity edema and no calf tenderness. NEUROLOGIC EXAMINATION: Patient is awake, alert and oriented x3. ASSESSMENT Chest pain, atypical acute coronary syndrome has been ruled out, normal cardiac enzymes, EKG with no new changes or signs of acute ischemia. Hypertension Type 2 Diabetes Dyslipidemia Aortic valve replacement - on coumadin Hyponatremia PLAN An acute coronary event has been ruled out with no EKG evidence of ischemia and negative cardiac enzymes. No need for repeat echocardiogram at this time. Recommend restarting patient's home medications No further workup from cardiology perspective. We will sign off at this time. Management of electrolytes per primary Follow up with Dr. Draper as an outpatient Thank you kindly for this consultation. Nurse Practitioner note has been reviewed, I agree with a documented findings and plan of care. Patient was seen and examined. Past Medical History Past Medical History: Diabetes Mellitus, GERD/Reflux, Hyperlipidemia, Hypertension, Thyroid Disorder Additional Past Medical History / Comment(s): Rheumatic fever when she was 11. Scar tissue remains on the heart, cyst on lt. ovary History of Any Multi-Drug Resistant Organisms: None Reported Date of last positivie culture/infection: 2013 Past Surgical History: Appendectomy, Cardiac Valve Replacement, Section, Orthopedic Surgery Additional Past Surgical History / Comment(s): mitral valve surgery left knee replacement Past Anesthesia/Blood Transfusion Reactions: Previous Problems w/ Anesthesia Additional Past Anesthesia/Blood Transfusion Reaction / Comment(s): Stopped breathing when a EGD was done Past Psychological History: Anxiety, Bipolar Smoking Status: Never smoker Past Alcohol Use History: Heavy Past Drug Use History: None Reported - Past Family History Father Additional Family Medical History / Comment(s): Bipolar and ETOH abuse Mother Additional Family Medical History / Comment(s): ETOH abuse Medications and Allergies Home Medications Medication Instructions Recorded Confirmed Type Ergocalciferol [Vitamin D2 (1250 1,250 mcg PO LEON 02/02/21 04/04/21 History Mcg = 36450 Iu)] Fenofibrate Nanocrystallized 145 mg PO DAILY 02/02/21 04/04/21 History [Fenofibrate] INSULIN ASPART (NovoLOG) [NovoLOG 15 units SQ AC-TID 02/02/21 04/04/21 History (formulary)] Insulin Glargine,Hum.rec.anlog 40 unit SQ QAM 02/02/21 04/04/21 History [Basaglar Kwikpen U-100] Levothyroxine Sodium [Synthroid] 112 mcg PO DAILY 02/02/21 04/04/21 History Metoprolol Succinate (ER) [Toprol 100 mg PO DAILY 02/02/21 04/04/21 History Xl] OLANZapine [ZyPREXA] 20 mg PO DAILY 02/02/21 04/04/21 History Venlafaxine HCl [Effexor XR] 300 mg PO DAILY 02/02/21 04/04/21 History Vitamin E (Dl,Tocopheryl Acet) 1,000 unit PO DAILY 02/02/21 04/04/21 History [Vitamin E] Warfarin [Coumadin] 10 mg PO DAILY 02/02/21 04/04/21 History clonazePAM 1 mg PO BID PRN 02/02/21 04/04/21 History lisinopriL [Zestril] 5 mg PO DAILY 02/02/21 04/04/21 History metFORMIN HCL 1,000 mg PO BID 02/02/21 04/04/21 History Atorvastatin [Lipitor] 80 mg PO DAILY 02/07/21 04/04/21 History Ascorbic Acid [Vitamin C] 4,000 mg PO DAILY 04/04/21 04/04/21 History Fluticasone Nasal Widener [Flonase 1 spray EA NOSTRIL DAILY 04/04/21 04/04/21 History Nasal Widener] Insulin Glargine,Hum.rec.anlog 40 unit SQ DAILY 04/04/21 04/04/21 History [Basaglar Kwikpen U-100] Allergies Allergy/AdvReac Type Severity Reaction Status Date / Time codeine AdvReac Nausea & Verified 04/04/21 07:14 Vomiting Physical Exam Vitals: Vital Signs Temp Pulse Resp BP Pulse Ox 04/04/21 01:39 98.2 F 83 17 125/76 97 Intake and Output 04/03/21 04/04/21 04/04/21 22:59 06:59 14:59 Other: Weight 102.058 kg Results 04/04/21 02:23 04/04/21 02:23 Cardiac Enzymes 04/04/21 04/04/21 04/04/21 Range/Units 02:23 02:23 05:54 AST 49 H (14-36) U/L Troponin I <0.012 0.018 (0.000-0.034) ng/mL Coagulation 04/04/21 Range/Units 02:23 PT 45.4 H (9.0-12.0) sec APTT 50.0 H (22.0-30.0) sec CBC 04/04/21 Range/Units 02:23 WBC 4.4 (3.8-10.6) k/uL RBC 3.68 L (3.80-5.40) m/uL Hgb 11.2 L (11.4-16.0) gm/dL Hct 30.4 L (34.0-46.0) % Plt Count 195 (150-450) k/uL Comprehensive Metabolic Panel 04/04/21 Range/Units 02:23 Sodium 121 L (137-145) mmol/L Potassium 3.8 (3.5-5.1) mmol/L Chloride 89 L (98-107) mmol/L Carbon Dioxide 24 (22-30) mmol/L BUN 11 (7-17) mg/dL Creatinine 0.58 (0.52-1.04) mg/dL Glucose 234 H (74-99) mg/dL Calcium 8.1 L (8.4-10.2) mg/dL AST 49 H (14-36) U/L ALT 27 (4-34) U/L Alkaline Phosphatase 80 (38-126) U/L Total Protein 5.7 L (6.3-8.2) g/dL Albumin 3.6 (3.5-5.0) g/dL Current Medications Generic Name Dose Route Start Last Admin Trade Name Freq PRN Reason Stop Dose Admin Magnesium Sulfate/Dextrose 1 100 mls @ 100 mls/hr 04/04/21 04:00 04/04/21 06:18 gm/ IV Solution IVPB 04/04/21 07:59 100 mls/hr Q1H TIFFANIE Administration Sodium Chloride 1,000 mls @ 130 mls/hr 04/04/21 03:38 04/04/21 04:22 Saline 0.9% IV 04/04/21 11:19 130 mls/hr .[id number] STA Administration Morphine Sulfate 4 mg 04/04/21 02:56 Morphine Sulfate 4 Mg/Ml Syringe IVP Q4HR PRN Pain Naloxone HCl 0.2 mg 04/04/21 03:39 Naloxone 0.4 Mg/Ml 1 Ml Vial IV Q2M PRN Opioid Reversal Intake and Output 04/03/21 04/04/21 04/04/21 22:59 06:59 14:59 Other: Weight 102.058 kg 04/04/21 02:23 04/04/21 02:23
[2021-04-04 11:23] LABS: Magnesium 1.9 mg/dL (1.6-2.3); Phosphorus 3.4 mg/dL (2.5-4.5)
[2021-04-04] MEDS: FENOFIBRATE 160 MG TAB PO SCH (11:36)
[2021-04-04] MEDS: lisinopriL 5 MG TAB PO SCH (11:36)
[2021-04-04] MEDS: clonazePAM 1 MG TAB PO PRN (11:36)
[2021-04-04] MEDS: METOPROLOL SUCCINATE (ER) 100 MG TAB.ER.24H PO SCH (11:36)
[2021-04-04] MEDS: ATORVASTATIN 80 MG TAB PO SCH (11:36)
[2021-04-04] MEDS: LEVOTHYROXINE 112 MCG TAB PO SCH (11:36)
[2021-04-04] MEDS: VENLAFAXINE HCL ER 150 MG CAP PO SCH (11:53)
[2021-04-04] MEDS: VITAMIN E (DL,TOCOPHERYL ACET) 400 UNIT CAP PO SCH (11:53)
[2021-04-04] MEDS: FLUTICASONE 50MCG/SPRAY NASAL 16GM EA NOSTRIL SCH ×2 (11:56→12:18)
[2021-04-04] MEDS: OLANZapine 10 MG TAB PO SCH (12:18)
[2021-04-04 12:34] LABS: Glucose,Whole Blood 177 mg/dL (75-99)
[2021-04-04] MEDS: HYDROcodone/APAP 5-325MG 1 EACH TAB PO PRN ×2 (13:02→22:12)
[2021-04-04] MEDS: SODIUM CHLORIDE 0.9% 1,000 ML IV SCH (14:04)
[2021-04-04 14:29] LABS: Appearance,Urine Clear (Clear); Bilirubin,Urine Negative (Negative); Blood,Urine Negative (Negative); Color,Urine Colorless; Glucose,Urine (UA) Negative (Negative); Ketones,Urine Negative (Negative); Leukocyte Esterase,Urine Negative (Negative); Nitrite,Urine Negative (Negative); Protein,Urine Negative (Negative); Specific Gravity,Urine 1.004 (1.001-1.035); Urobilinogen,Urine <2.0 mg/dL (<2.0)
[2021-04-04 14:36] LABS: INR 4.4 (<1.2); Prothrombin Time 42.7 sec (9.0-12.0)
[2021-04-04 14:39] LABS: African American GFR (CKD) >90 (>60 ml/min/1.73 sqM); Anion Gap 8 mmol/L; Blood Urea Nitrogen 10 mg/dL (7-17); Calcium 8.4 mg/dL (8.4-10.2); Carbon Dioxide 26 mmol/L (22-30); Chloride 97 mmol/L (98-107); Glucose 227 mg/dL (74-99); Non-African American GFR(CKD) >90 (>60 ml/min/1.73 sqM); Potassium 4.5 mmol/L (3.5-5.1); Sodium 131 mmol/L (137-145)
--- NOTE | 2021-04-04 14:41 | HP ---
HISTORY AND PHYSICAL DATE OF SERVICE: 04/04/2021 CHIEF COMPLAINTS: Chest pain and as well as weakness and electrolytes imbalance. HISTORY OF PRESENT ILLNESS: This 60-year-old woman with a past medical history of multiple medical problems including diabetes, GERD, hypertension, hyperlipidemia, pneumonia, being followed by Dr. Melissa Durham in the outpatient setting, had an episode of diarrhea. Subsequently, the patient also had some dizziness, weakness and also some chest pressure and patient came to [facility] and was admitted for further evaluation and treatment. Patient was found to have hyponatremia with multiple electrolyte abnormalities. Patient admitted for further evaluation. Covid 19 negative. INR is elevated at 4.7. Sodium is 121. Lipase is 343. There is no history of fever, rigors or chills. No history of headache, loss of consciousness or seizures. PAST MEDICAL HISTORY: History of diabetes, GERD, hypertension, hyperlipidemia, history of pneumonia, history of sleep apnea, CPAP. MEDICATIONS: Insulin, Lantus, vitamin D2, metformin, Zestril, Coumadin, vitamin, Effexor XR, Toprol-XL, Synthroid, Basaglar, NovoLog, Flonase, fenofibrate, Lipitor, vitamin C. ALLERGIES: CODEINE. FAMILY HISTORY: History of EtOH abuse. SOCIAL HISTORY: Occasional alcohol intake. No history of smoking. REVIEW OF SYSTEMS: ENT: No diminished vision. No diminished hearing. Cardio system: As mentioned above. Respiratory as mentioned earlier. GI no nausea or vomiting. no dysuria. Nervous system: No numbness, weakness. Allergy/Immunology: No asthma or hayfever. MUSCULOSKELETAL as mentioned earlier. HEMATOLOGY/ONCOLOGY: No history of anemia. ENDOCRINE: As mentioned earlier. DERMATOLOGY: Negative. RHEUMATOLOGY: Negative. PSYCHIATRIC: As mentioned earlier. PHYSICAL EXAMINATION: Alert and oriented times three. Pulse 81, blood pressure 143/80, respiration 18, temperature 98, pulse ox 97% on room air. HEENT: Conjunctivae normal. NECK: No JVD. No carotid bruit. CARDIOVASCULAR: S1, S2 muffled. RESPIRATORY SYSTEM: Breath sounds diminished at the bases. A few scattered rhonchi. No crackles. ABDOMEN: Soft, nontender. No mass palpable. LEGS: No edema, no swelling. NERVOUS SYSTEM: Higher functions as mentioned earlier. Moves all 4 limbs. No focal motor or sensory deficits. LYMPHATICS: No lymph nodes palpable in the neck, axillae or groin. SKIN: No ulcer, rash or bleeding. JOINTS: No active deforming arthropathy. LABS: WBC 4.2, hemoglobin 11.2, INR 4.7, sodium 121. ASSESSMENT: 1. Possible acute gastroenteritis with severe dehydration, present on admission. 2. Severe hyponatremia, possibly hypovolemic. 3. Chest pressure, rule out coronary artery disease. 4. Coumadin coagulopathy. 5. Hypochloremia. 6. Diabetes mellitus type 2 uncontrolled with hyperglycemia. 7. Hypocalcemia. 8. Increased AST. 9. Anemia, normocytic anemia of undetermined origin. 10.Gastroesophageal reflux disease. 11.Hypertension. 12.Hyperlipidemia. 13.History of pneumonia. 14.History of sleep apnea. 15.Hypothyroidism. 16.History of bilateral peripheral neuropathy. 17.History of rheumatic fever. 18.History of aortic valve replacement, mechanical valve. 19.History of appendectomy. 20.History of cardiac valve replacement. 21.History of BLANCA. 22.Anxiety, bipolar. 23.FULL CODE. 24.Obesity with body mass 38.6. RECOMMENDATIONS AND DISCUSSION: This 60-year-old woman who presented with multiple complex medical issues, we will monitor the patient closely, continue the current management and symptomatic treatment. Otherwise, cautious IV fluids. Repeat lytes. Continue rest of medications. COVID-19 is negative. Guarded prognosis because of multiple complex medical issues. Further recommendations to follow. A copy of this dictation is being forwarded to Dr. Melissa Durham who is the primary physician. MMMARGARITOL / SONIAN: [id number] / MTDD
[2021-04-04 15:04] LABS: Basophils % (A) 1 %; Eosinophils # (A) 0.1 k/uL (0-0.7); Eosinophils % (A) 3 %; HCT 33.2 % (34.0-46.0); Lymphocytes # (A) 0.7 k/uL (1.0-4.8); Lymphocytes % (A) 20 %; MCH 30.7 pg (25.0-35.0); MCHC 36.2 g/dL (31.0-37.0); MCV 84.8 fL (80.0-100.0); Mean Platelet Volume 6.8; Monocytes # (A) 0.3 k/uL (0-1.0); Monocytes % (A) 7 %; Neutrophils # (A) 2.3 k/uL (1.3-7.7); Neutrophils % (A) 66 %; Platelet Count 211 k/uL (150-450); RBC 3.91 m/uL (3.80-5.40); RDW 13.4 % (11.5-15.5); WBC 3.6 k/uL (3.8-10.6)
[2021-04-04 15:51] LABS: Amylase 49 U/L (30-110); Lipase 187 U/L (23-300)
[2021-04-04] MEDS ORDERED: WARFARIN 0.5 MG TAB PO ONE (18:00)
[2021-04-04 18:02] LABS: Glucose,Whole Blood 159 mg/dL (75-99)
[2021-04-05] MEDS: SODIUM CHLORIDE 0.9% 1,000 ML IV SCH ×2 (01:33→17:18)
[2021-04-05] MEDS: LEVOTHYROXINE 112 MCG TAB PO SCH (05:49)
[2021-04-05 06:53] LABS: Glucose,Whole Blood 266 mg/dL (75-99)
[2021-04-05 07:00] LABS: HCT 34.7 % (34.0-46.0); HGB 12.1 gm/dL (11.4-16.0); MCH 30.3 pg (25.0-35.0); MCHC 34.9 g/dL (31.0-37.0); MCV 86.8 fL (80.0-100.0); Mean Platelet Volume 6.9; Platelet Count 205 k/uL (150-450); RDW 13.7 % (11.5-15.5); WBC 3.3 k/uL (3.8-10.6)
[2021-04-05 07:25] LABS: African American GFR (CKD) >90 (>60 ml/min/1.73 sqM); Anion Gap 4 mmol/L; Blood Urea Nitrogen 14 mg/dL (7-17); Calcium 8.4 mg/dL (8.4-10.2); Carbon Dioxide 29 mmol/L (22-30); Chloride 103 mmol/L (98-107); Glucose 226 mg/dL (74-99); INR 3.4 (<1.2); Non-African American GFR(CKD) 79 (>60 ml/min/1.73 sqM); Potassium 5.5 mmol/L (3.5-5.1); Prothrombin Time 32.9 sec (9.0-12.0); Sodium 136 mmol/L (137-145)
[2021-04-05] MEDS: INSULIN ASPART (NovoLOG) 100 UNIT/ML VIAL SQ SCH ×3 (07:43→17:16)
[2021-04-05] MEDS: VENLAFAXINE HCL ER 150 MG CAP PO SCH (07:44)
[2021-04-05] MEDS: FENOFIBRATE 160 MG TAB PO SCH (07:44)
[2021-04-05] MEDS: ATORVASTATIN 80 MG TAB PO SCH (07:44)
[2021-04-05] MEDS: lisinopriL 5 MG TAB PO SCH (07:44)
[2021-04-05] MEDS: METOPROLOL SUCCINATE (ER) 100 MG TAB.ER.24H PO SCH (07:44)
[2021-04-05] MEDS: INSULIN DETEMIR (LEVEMIR) 100 UNIT/ML SYR SQ SCH (07:44)
[2021-04-05] MEDS: OLANZapine 10 MG TAB PO SCH (07:45)
[2021-04-05] MEDS: VITAMIN E (DL,TOCOPHERYL ACET) 400 UNIT CAP PO SCH (07:45)
[2021-04-05] MEDS: HYDROcodone/APAP 5-325MG 1 EACH TAB PO PRN ×2 (08:47→17:27)
[2021-04-05 12:02] LABS: Glucose,Whole Blood 183 mg/dL (75-99)
[2021-04-05 16:32] LABS: Glucose,Whole Blood 149 mg/dL (75-99)
[2021-04-05] MEDS: WARFARIN 10 MG TAB PO SCH ×2 (16:54→17:27)
[2021-04-05] MEDS: MORPHINE SULFATE 4 MG/ML SYRINGE IVP PRN (19:29)
--- NOTE | 2021-04-05 20:13 | PN ---
PROGRESS NOTE DATE OF SERVICE: 04/05/2021 INTERVAL HISTORY: This 60-year-old woman who was admitted with acute gastroenteritis with severe dehydration is being closely monitored at this time. The patient also had chest pressure which is going on and off. Chest CTA was done which showed no focal consolidation or any significant abnormality. Atelectasis of the lung bases are noted. No chest pain. No palpitations. PAST MEDICAL HISTORY: Reviewed. PHYSICAL EXAM: GENERAL: Patient is alert and oriented times three. VITAL SIGNS: Pulse 78, blood pressure 143/74, respirations 17, temperature 98.4, pulse ox 92% on room air. HEENT: Conjunctivae normal. NECK: No jugular venous distention. No carotid bruits. RESPIRATORY: Breath sounds diminished at the bases. A few scattered rhonchi. HEART: S1 and S2, muffled. ABDOMEN: Soft, no tenderness. EXTREMITIES: No edema, no swelling. NERVOUS: No focal deficits. LABS: Sodium 130, potassium 5.5. D-dimer is 1.08. ASSESSMENT: 1. Acute gastroenteritis with severe dehydration present on admission. 2. Possibly acute viral illness. 3. Severe hyponatremia, possibly hypovolemic. 4. Chest pressure, rule out coronary artery disease. 5. Coumadin coagulopathy. 6. Leukopenia. 7. Hyponatremia. 8. Hyperkalemia. 9. Elevated D-dimer without any evidence of pulmonary embolism. 10.Hypochloremia. 11.Diabetes mellitus type 2 uncontrolled with hyperglycemia. 12.Hypocalcemia. 13.Increased AST. 14.Anemia, normocytic anemia of chronic disease. 15.Gastroesophageal reflux disease. 16.Hypertension. 17.Hyperlipidemia. 18.History of pneumonia. 19.History of sleep apnea. 20.Hypothyroidism. 21.History of bilateral peripheral neuropathy. 22.History of rheumatic fever. 23.History of aortic valve replacement, mechanical valve, on Coumadin. 24.History of appendectomy. 25.History of cardiac valve replacement. 26.History of BLANCA. 27.Anxiety and bipolar. 28.FULL CODE. 29.Obesity with body mass index of 38.6. RECOMMENDATIONS AND DISCUSSION: Recommend to continue current management and continue symptomatic treatment. Possible stress test tomorrow. Repeat labs. We will repeat potassium. Will hold the lisinopril. Guarded prognosis because of multiple complex medical issues. Further recommendations to follow. See orders for further details. Pharmacy to re-dose the Coumadin. MMODL / IJN: [id number] /
[2021-04-05 20:17] LABS: Glucose,Whole Blood 231 mg/dL (75-99)
[2021-04-06 00:40] LABS: Hemoglobin A1C 8.7 % (4.0-6.0)
[2021-04-06] MEDS: SODIUM CHLORIDE 0.9% 1,000 ML IV SCH ×2 (05:31→19:56)
[2021-04-06] MEDS: LEVOTHYROXINE 112 MCG TAB PO SCH (05:31)
[2021-04-06 06:39] LABS: Glucose,Whole Blood 238 mg/dL (75-99)
[2021-04-06 06:48] LABS: INR 2.3 (<1.2)
[2021-04-06 06:49] LABS: Prothrombin Time 22.6 sec (9.0-12.0)
[2021-04-06] MEDS: INSULIN DETEMIR (LEVEMIR) 100 UNIT/ML SYR SQ SCH (07:21)
[2021-04-06] MEDS: VENLAFAXINE HCL ER 150 MG CAP PO SCH (07:22)
[2021-04-06] MEDS: OLANZapine 10 MG TAB PO SCH (07:22)
[2021-04-06] MEDS: VITAMIN E (DL,TOCOPHERYL ACET) 400 UNIT CAP PO SCH (07:23)
[2021-04-06] MEDS: ATORVASTATIN 80 MG TAB PO SCH (07:37)
[2021-04-06] MEDS: INSULIN ASPART (NovoLOG) 100 UNIT/ML VIAL SQ SCH ×3 (07:37→17:59)
[2021-04-06] MEDS: METOPROLOL SUCCINATE (ER) 100 MG TAB.ER.24H PO SCH (07:37)
[2021-04-06] MEDS: FENOFIBRATE 160 MG TAB PO SCH (07:37)
[2021-04-06 10:04] LABS: Basophils # (A) 0.04 X 10*3/uL (0.00-0.10); Basophils % (A) 1.2 %; Eosinophils # (A) 0.12 X 10*3/uL (0.04-0.35); Eosinophils % (A) 3.6 %; HCT 33.9 % (37.2-46.3); HGB 11.1 g/dL (12.0-15.0); Lymphocytes # (A) 0.76 X 10*3/uL (0.90-5.00); Lymphocytes % (A) 22.7 %; MCH 29.3 pg (27.0-32.0); MCHC 32.7 g/dL (32.0-37.0); MCV 89.4 fL (80.0-97.0); Mean Platelet Volume 9.9 fL (9.5-12.2); Monocytes # (A) 0.36 X 10*3/uL (0.20-1.00); Monocytes % (A) 10.7 %; Neutrophils # (A) 2.04 X 10*3/uL (1.80-7.70); Neutrophils % (A) 60.9 %; Platelet Count 210 X 10*3/uL (140-440); RBC 3.79 X 10*6/uL (4.10-5.20); RDW 13.4 % (11.5-14.5); WBC 3.35 X 10*3/uL (4.50-10.00)
--- NOTE | 2021-04-06 12:01 | ECHOF ---
Referral Reason:chf MEASUREMENTS -------- HEIGHT: 162.6 cm WEIGHT: 107.0 kg BP: RVIDd: 2.5 cm (< 3.3) IVSd: 1.4 cm (0.6 - 1.1) LVIDd: 4.7 cm (3.9 - 5.3) LVPWd: 1.1 cm (0.6 - 1.1) IVSs: 1.7 cm LVIDs: 3.6 cm LVPWs: 1.6 cm LAESV Index (A-L): 27.02 ml/m Ao Diam: 3.0 cm (2.0 - 3.7) MV EXCURSION: 20.304 mm (> 18.000) MV EF SLOPE: 47 mm/s (70 - 150) EPSS: 0.3 cm MV E Lance: 0.63 m/s MV DecT: 255 ms MV A Lance: 0.63 m/s MV E/A Ratio: 0.99 AV maxP.17 mmHg AV meanP.75 mmHg RAP: 5.00 mmHg RVSP: 31.53 mmHg FINDINGS -------- Sinus rhythm. This was a technically adequate study. The left ventricular size is normal. There is moderate concentric left ventricular hypertrophy. O verall left ventricular systolic function is normal with, an EF between 55 - 60 %. The right ventricle is normal in size. LA is midly dilated 29-33ml/m2. The right atrial size is normal. Peak/mean gradient across the Aortic Valve is 31.17mmHg / 16.75mmHg. There is cuca-prosthetic regur gitation of the prosthetic aortic valve. Mechanical AOV. Mild mitral annular calcification present. No mitral regurgitation. No regurgitation noted Right ventricular systolic pressure is normal at < 35 mmHg. There is no pulmonic regurgitation present. The aortic root size is normal. There is no pericardial effusion. CONCLUSIONS -------- 1. The left ventricular size is normal. 2. There is moderate concentric left ventricular hypertrophy. 3. Overall left ventricular systolic function is normal with, an EF between 55 - 60 %. 4. The right ventricle is normal in size. 5. LA is midly dilated 29-33ml/m2. 6. The right atrial size is normal. 7. Peak/mean gradient across the Aortic Valve is 31.17mmHg / 16.75mmHg. 8. There is cuca-prosthetic regurgitation of the prosthetic aortic valve. 9. Mechanical AOV. 10. Mild mitral annular calcification present. 11. No regurgitation noted 12. There is no pulmonic regurgitation present. 13. The aortic root size is normal. 14. There is no pericardial effusion. HELP DESK SPECIALIST: Kate Mijares RDCS
[2021-04-06 12:06] LABS: Glucose,Whole Blood 216 mg/dL (75-99)
--- NOTE | 2021-04-06 12:27 | P.STRESS ---
- Stress Test Note Stress Test Results/Findings: Exam Performed: NM stress lexiscan cardiolite Exam Date: 04/06/21 Reason for Exam: Chest pain Height: 5 ft 4 in Weight: 107.5 kg Protocol: lexiscan Stage: na Duration of Exercise: 5 min Resting Heart Rate: 83 Resting Blood Pressure: 145/89 Maximum Achieved Heart Rate: 99 Maximum Achieved Blood Pressure: 150/79 85% PMHR: na 100% PMHR: na METS: na Technologist Comment: Stress Test Results/Findings: This is a 60-year-old female with history of hypertension, diabetes and family history of ischemic heart disease being evaluated for symptoms of chest pain. Stress data: Baseline EKG showed sinus rhythm with normal [place] interval and QRS duration. A standard dose of Lexiscan was infused. EKGs taken during and after exercise did not reveal any changes of ischemia. Her blood pressure at rest is 145/89, pulse rate of 83. Final impression: #1. Negative Lexiscan stress test #2. Report on the nuclear portion to be provided by the radiologist
[2021-04-06] MEDS: FLUTICASONE 50MCG/SPRAY NASAL 16GM EA NOSTRIL SCH (14:08)
--- NOTE | 2021-04-06 14:15 | NM ---
EXAMINATION TYPE: NM stress lexiscan cardiolite DATE OF EXAM: 04/06/2021 COMPARISON: NONE HISTORY: Unstable angina TECHNIQUE: After the intravenous administration of 10.5 mCi Tc 99m Sestamibi - Cardiolite resting SP ECT images acquired 45 minutes post injection. The patient received 0.4mg Lexiscan, 25.7 mCi Tc 99m Sestamibi - Stress images obtained [address] injection FINDINGS: Review of stress and rest SPECT images demonstrates decreased perfusion cardiac apex on stress images compatible with stress-induced ischemia. Gated analysis shows normal wall motion with an estimated l eft ventricular ejection fraction of 56 %. IMPRESSION: Findings suspicious for stress-induced ischemia.
[2021-04-06] MEDS: ACETAMINOPHEN TAB 500 MG TAB PO PRN ×2 (14:51→22:20)
[2021-04-06 14:55] LABS: African American GFR (CKD) 110.7 (60.0-200.0); Anion Gap 8.6 mmol/L (4.00-12.00); Calcium 8.6 mg/dL (8.7-10.3); Carbon Dioxide 25.4 mmol/L (21.6-31.8); Non-African American GFR(CKD) 95.5 (60.0-200.0); Potassium 4.8 mmol/L (3.5-5.5)
[2021-04-06] MEDS ORDERED: NITROGLYCERIN SL TABS 0.4 MG TAB SUBLINGUAL PRN (15:43)
[2021-04-06] MEDS ORDERED: HYDROmorphone 0.5 MG/0.5 ML SYRINGE IVP PRN (15:43)
--- NOTE | 2021-04-06 16:18 | EST ---
Stress Test Results/Findings: Exam Performed: NM stress lexiscan cardiolite Exam Date: 04/06/21 Reason for Exam: Chest pain Height: 5 ft 4 in Weight: 107.5 kg Protocol: lexiscan Stage: na Duration of Exercise: 5 min Resting Heart Rate: 83 Resting Blood Pressure: 145/89 Maximum Achieved Heart Rate: 99 Maximum Achieved Blood Pressure: 150/79 85% PMHR: na 100% PMHR: na METS: na Technologist Comment: Stress Test Results/Findings: This is a 60-year-old female with history of hypertension, diabetes and family history of ischemic heart disease being evaluated for symptoms of chest pain. Stress data: Baseline EKG showed sinus rhythm with normal [place] interval and QRS duration. A standard dose of Lexiscan was infused. EKGs taken during and after exercise did not reveal any changes of ischemia. Her blood pressure at rest is 145/89, pulse rate of 83. Final impression: #1. Negative Lexiscan stress test #2. Report on the nuclear portion to be provided by the radiologist BEL
[2021-04-06] MEDS: MORPHINE SULFATE 4 MG/ML SYRINGE IVP PRN (16:29)
[2021-04-06 16:38] LABS: Glucose,Whole Blood 216 mg/dL (75-99)
[2021-04-06 17:58] LABS: Glucose,Whole Blood 214 mg/dL (75-99)
[2021-04-06] MEDS: HYDROcodone/APAP 5-325MG 1 EACH TAB PO PRN (18:00)
[2021-04-06] MEDS: WARFARIN 10 MG TAB PO SCH (18:29)
[2021-04-06 20:40] LABS: Glucose,Whole Blood 147 mg/dL (75-99)
--- NOTE | 2021-04-06 20:50 | PN ---
PROGRESS NOTE DATE OF SERVICE: 04/06/2021 This 60-year-old woman who was admitted with chest pain as well as acute gastroenteritis symptoms is being closely monitored. Stress test showed possible coronary disease and Cardiology is following the patient closely. No chest pain. No palpitations. No fever. PHYSICAL EXAMINATION: Alert and oriented x3. Pulse 91, blood pressure 124/80, respiration 18, temperature 97.4, pulse ox 100% on room air. HEENT: Conjunctivae normal. NECK: No jugular venous distention. CARDIOVASCULAR SYSTEM: S1, S2 muffled. Ejection systolic murmur present. RESPIRATORY SYSTEM: Breath sounds diminished at the bases. No rhonchi. No crackles. ABDOMEN: Soft, non-tender. LEGS: No edema. No swelling. NERVOUS SYSTEM: No focal deficit. LABS: INR 2.3. WBC 3.7, hemoglobin 11.1. Other labs are noted. ASSESSMENT: 1. Chest pain. Rule out coronary artery disease with borderline positive stress test. 2. Acute gastroenteritis with severe dehydration, present on admission. 3. Possible acute viral illness, present on admission. 4. Severe hyponatremia, possibly hypovolemic. 5. Coumadin coagulopathy. 6. Leukopenia. 7. Hyponatremia. 8. Hyperkalemia. 9. Elevated D-dimer without any evidence of pulmonary embolism. 10.Hypochloremia. 11.Diabetes mellitus, type 2, uncontrolled with hyperglycemia. 12.Hypocalcemia. 13.Increased AST. 14.Anemia, normocytic anemia with chronic disease. 15.Gastroesophageal reflux disease. 16.Hypertension. 17.Hyperlipidemia. 18.History of pneumonia. 19.History of sleep apnea. 20.Hypothyroidism. 21.History of bilateral peripheral neuropathy. 22.History of rheumatic fever. 23.History of aortic valve replacement, mechanical valve, on Coumadin. 24.History of appendectomy. 25.History of cardiac valve replacement. 26.History of transesophageal echocardiogram. 27.Perivalvular leak per the 2D echocardiogram. 28.Anxiety, bipolar. 29.Obesity with body mass index of 38.6. 30.FULL CODE. RECOMMENDATIONS AND DISCUSSION: I recommend to continue current medications, continue with the monitoring, symptomatic treatment. The patient will be transferred to telemetry. Closely follow with Cardiology. Otherwise, continue the rest of the medications. Prognosis guarded. Further recommendations to follow. MMODL / IJN: [id number] /
[2021-04-06] MEDS: clonazePAM 1 MG TAB PO PRN (22:20)
[2021-04-07 05:52] LABS: Glucose,Whole Blood 230 mg/dL (75-99)
[2021-04-07] MEDS: LEVOTHYROXINE 112 MCG TAB PO SCH (06:02)
[2021-04-07 08:43] LABS: Basophils % (A) 1 %; Eosinophils # (A) 0.1 k/uL (0-0.7); Eosinophils % (A) 4 %; HCT 34.4 % (34.0-46.0); HGB 12.1 gm/dL (11.4-16.0); Lymphocytes # (A) 0.6 k/uL (1.0-4.8); Lymphocytes % (A) 21 %; MCH 30.5 pg (25.0-35.0); MCHC 35.2 g/dL (31.0-37.0); MCV 86.5 fL (80.0-100.0); Mean Platelet Volume 6.5; Monocytes # (A) 0.2 k/uL (0-1.0); Monocytes % (A) 7 %; Neutrophils # (A) 1.8 k/uL (1.3-7.7); Neutrophils % (A) 65 %; Platelet Count 194 k/uL (150-450); RBC 3.98 m/uL (3.80-5.40); RDW 13.5 % (11.5-15.5); WBC 2.8 k/uL (3.8-10.6)
[2021-04-07 09:05] LABS: ALT 41 U/L (4-34); AST 43 U/L (14-36); African American GFR (CKD) >90 (>60 ml/min/1.73 sqM); Albumin 3.9 g/dL (3.5-5.0); Alkaline Phosphatase 69 U/L (38-126); Anion Gap 6 mmol/L; Blood Urea Nitrogen 14 mg/dL (7-17); Calcium 9.2 mg/dL (8.4-10.2); Carbon Dioxide 30 mmol/L (22-30); Chloride 102 mmol/L (98-107); Glucose 236 mg/dL (74-99); Magnesium 1.5 mg/dL (1.6-2.3); Non-African American GFR(CKD) 85 (>60 ml/min/1.73 sqM); Potassium 4.6 mmol/L (3.5-5.1); Sodium 138 mmol/L (137-145); Total Bilirubin 0.5 mg/dL (0.2-1.3); Total Protein 6.3 g/dL (6.3-8.2)
[2021-04-07 09:29] LABS: Glucose,Whole Blood 246 mg/dL (75-99)
[2021-04-07] MEDS ORDERED: Magnesium Replacement Protocol 1 EACH MISC MISCELLANE PRN (09:35)
[2021-04-07] MEDS: clonazePAM 1 MG TAB PO PRN ×2 (09:50→19:37)
[2021-04-07] MEDS: OLANZapine 10 MG TAB PO SCH (09:50)
[2021-04-07] MEDS: INSULIN ASPART (NovoLOG) 100 UNIT/ML VIAL SQ SCH ×3 (09:51→16:47)
[2021-04-07] MEDS: VITAMIN E (DL,TOCOPHERYL ACET) 400 UNIT CAP PO SCH (09:51)
[2021-04-07] MEDS: ATORVASTATIN 80 MG TAB PO SCH (09:51)
[2021-04-07] MEDS: METOPROLOL SUCCINATE (ER) 100 MG TAB.ER.24H PO SCH (09:51)
[2021-04-07] MEDS: MAGNESIUM SULFATE-D5W PMX 1 GM in DEXTROSE/WATER 1 100ML.BAG IVPB SCH ×2 (09:51→12:27)
[2021-04-07] MEDS: FENOFIBRATE 160 MG TAB PO SCH (09:51)
[2021-04-07] MEDS: VENLAFAXINE HCL ER 150 MG CAP PO SCH (09:51)
[2021-04-07] MEDS: INSULIN DETEMIR (LEVEMIR) 100 UNIT/ML SYR SQ SCH (09:52)
[2021-04-07] MEDS ORDERED: HEPARIN SODIUM 1,000 UN/ML (10ML VL) IV PRN (11:09)
[2021-04-07 12:13] LABS: Glucose,Whole Blood 279 mg/dL (75-99)
[2021-04-07] MEDS: FLUTICASONE 50MCG/SPRAY NASAL 16GM EA NOSTRIL SCH (12:26)
[2021-04-07] MEDS: HEPARIN SOD,PORK IN 0.45% NACL 25,000 UNIT in 0.45% NACL 1 250ML.BAG IV SCH (12:27)
[2021-04-07] MEDS: HYDROcodone/APAP 5-325MG 1 EACH TAB PO PRN ×2 (12:36→19:36)
--- NOTE | 2021-04-07 13:17 | P.CRDCN ---
History of Present Illness History of present illness: HISTORY OF PRESENTING ILLNESS This is a pleasant 60-year-old female past medical history significant for Type 2 Diabetes, Hypertension, Dyslipidemia, mechanical aortic valve replacement in 12/2012(on coumadin), total knee replacement. She follows in the office with Dr. Draper. We have been asked to see in consultation for chest pain. Patient is seen and examined in the emergency department. Patient presents emergency department with worsening weakness in her bilateral legs and headaches. She also states that she had left-sided chest pain and upper back pain. 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 She denies shortness of breath, diaphoresis, nausea, abdominal pain. EKG revealed sinus rhythm, heart rate 79, early repolarization in the inferior leads, T-wave inversion in V2. These are similar to prior EKGs. On admission, her sodium was 121, magnesium is 1.0, potassium 3.8, kidney function stable, troponin negative 3. Lipase is 343. Blood pressure 125/76, heart rate 83, afebrile, maintaining oxygen saturation is 97% on room air. Acute coronary syndrome was ruled out. No further inpatient workup was advised at that time. Cardiology signed off on 04/04. Lexiscan stress test was ordered by primary and revealed decreased perfusion cardiac apex with suspicious stress-induced ischemia on 04/06/21 . Cardiology was re-consulted. Patient seen and examined at bedside. No acute events overnight. She has been treated for acute gastroenter itis. Echocardiogram on 04/05 revealed an EF between 55-60%, periprosthetic regurgitation of the prosthetic aortic valve, peak/mean gradient 31mmHg/16.75mmHg. DIAGNOSTICS CT chest No acute findings. Negative for pulmonary embolism, cardiac chambers are normal in size, no pericardial effusion, aorta is of normal caliber, no dissection. No focal consolidation or pleural effusion Current home cardiac medications include lisinopril 5 mg daily, Coumadin 10 mg daily metoprolol succinate 100 mg daily, atorvastatin 80 mg daily Most recent echocardiogram 11/2019-EF 55%, mild TR, mild MR, prosthetic AV normal opening and closing. Most recent Lexiscan stress test 11/2019- Negative for stress induced ischemia. Normal myocardial perfusion imaging with a fixed apical defect and noraml gated SPECT images consistent with a normal variant Most recent cardiac catheterization 11/2012-Normal coronary arteries REVIEW OF SYSTEMS At the time of my exam: CONSTITUTIONAL: Denies fever or chills. CARDIOVASCULAR: +chest pain Denies shortness of breath, orthopnea, PND or palpitations. RESPIRATORY: Denies cough. GASTROINTESTINAL: Denies abdominal pain, diarrhea, constipation, nausea or vomiting. MUSCULOSKELETAL: Denies myalgias. NEUROLOGIC: Denies numbness, tingling, headacbe or weakness. ENDOCRINE: Denies fatigue, weight change, polydipsia or polyurina. GENITOURINARY: Denies burning, hematuria or urgency with micturation. HEMATOLOGIC: Denies history of anemia or bleeding. PHYSICAL EXAMINATION BP 134/79 HR 93, afebrile, 97% on room air. CONSTITUTIONAL: No apparent distress. HEENT: Head is normocephalic. Pupils are equal, round. Sclerae anicteric. Mucous membranes of the mouth are moist. No JVD. No carotid bruit. CHEST EXAMINATION: Lungs are clear to auscultation. No chest wall tenderness is noted on palpation or with deep breathing. HEART EXAMINATION: Regular rate and rhythm. S1, S2 heard. aortic valve click, Systolic ejection murmur at the base No gallops or rub. ABDOMEN: Soft, nontender. Positive bowel sounds. EXTREMITIES: 2+ peripheral pulses, no lower extremity edema and no calf tenderness. NEUROLOGIC EXAMINATION: Patient is awake, alert and oriented x3. ASSESSMENT Chest pain, atypical acute coronary syndrome has been ruled out, normal cardiac enzymes, EKG with no new changes or signs of acute ischemia. Positive Lexiscan stress test Hypertension Type 2 Diabetes Dyslipidemia Aortic valve replacement - on coumadin Hyponatremia PLAN Plan for cardiac catheterization with Dr. Draper on Saturday. We will hold patients coumadin and start her on a heparin drip Further recommendations based on clinical course Nurse Practitioner note has been reviewed, I agree with a documented findings and plan of care. Patient was seen and examined. Past Medical History Past Medical History: Diabetes Mellitus, GERD/Reflux, Hyperlipidemia, Hypertension, Pneumonia, Sleep Apnea/CPAP/BIPAP, Thyroid Disorder Additional Past Medical History / Comment(s): IDDM type II, neuropathy bilateral feet, rheumatic fever at age 11yrs/scar tissue on valve, aortic valve replacement (mechanical), pt states she had a blood clot around aortic valve prior to surgery, POLLO but does not tolerate Cpap, constipation, L ovarian cyst, hypothyroid. History of Any Multi-Drug Resistant Organisms: None Reported Date of last positivie culture/infection: 2013 Past Surgical History: Appendectomy, Cardiac Valve Replacement, Section, Joint Replacement, Orthopedic Surgery Additional Past Surgical History / Comment(s): BLANCA, aortic valve replacement (mechanical), L total knee arthroplasty, L foot bunionectomy, EGDs, colonoscopy. Past Anesthesia/Blood Transfusion Reactions: Previous Problems w/ Anesthesia Additional Past Anesthesia/Blood Transfusion Reaction / Comment(s): Stopped breathing when a EGD was done Smoking Status: Never smoker - Past Family History Father Additional Family Medical History / Comment(s): ETOH abuse. Mother Additional Family Medical History / Comment(s): ETOH abuse. Mother is . Medications and Allergies Home Medications Medication Instructions Recorded Confirmed Type Ergocalciferol [Vitamin D2 (1250 1,250 mcg PO LEON 02/02/21 04/04/21 History Mcg = 17217 Iu)] Fenofibrate Nanocrystallized 145 mg PO DAILY 02/02/21 04/04/21 History [Fenofibrate] INSULIN ASPART (NovoLOG) [NovoLOG 15 units SQ AC-TID 02/02/21 04/04/21 History (formulary)] Insulin Glargine,Hum.rec.anlog 40 unit SQ QAM 02/02/21 04/04/21 History [Basaglar Kwikpen U-100] Levothyroxine Sodium [Synthroid] 112 mcg PO DAILY 02/02/21 04/04/21 History Metoprolol Succinate (ER) [Toprol 100 mg PO DAILY 02/02/21 04/04/21 History Xl] OLANZapine [ZyPREXA] 20 mg PO DAILY 02/02/21 04/04/21 History Venlafaxine HCl [Effexor XR] 300 mg PO DAILY 02/02/21 04/04/21 History Vitamin E (Dl,Tocopheryl Acet) 1,000 unit PO DAILY 02/02/21 04/04/21 History [Vitamin E] Warfarin [Coumadin] 10 mg PO DAILY 02/02/21 04/04/21 History clonazePAM 1 mg PO BID PRN 02/02/21 04/04/21 History lisinopriL [Zestril] 5 mg PO DAILY 02/02/21 04/04/21 History metFORMIN HCL 1,000 mg PO BID 02/02/21 04/04/21 History Atorvastatin [Lipitor] 80 mg PO DAILY 02/07/21 04/04/21 History Ascorbic Acid [Vitamin C] 4,000 mg PO DAILY 04/04/21 04/04/21 History Fluticasone Nasal Elizabeth [Flonase 1 spray EA NOSTRIL DAILY 04/04/21 04/04/21 History Nasal Elizabeth] Insulin Glargine,Hum.rec.anlog 40 unit SQ DAILY 04/04/21 04/04/21 History [Basaglar Kwikpen U-100] Allergies Allergy/AdvReac Type Severity Reaction Status Date / Time codeine AdvReac Nausea & Verified 04/04/21 07:14 Vomiting Physical Exam Vitals: Vital Signs Temp Pulse Resp BP Pulse Ox 04/07/21 12:30 97.6 F 88 16 160/76 98 04/07/21 09:00 97.6 F 93 16 134/79 97 04/07/21 05:59 97.9 F 87 16 176/89 95 04/06/21 23:28 84 16 166/84 95 04/06/21 20:07 98.0 F 77 16 144/78 97 04/06/21 16:09 91 124/80 04/06/21 15:42 85 18 163/96 100 04/06/21 14:06 97.5 F L 83 18 133/94 96 Intake and Output 04/06/21 04/07/21 04/07/21 22:59 06:59 14:59 Intake Total 260 10 870 Output Total 400 Balance -140 10 870 Intake: IV 20 10 10 Invasive Line 1 20 10 10 Oral 240 860 Output: Urine 400 Other: Voiding Method Toilet # Voids 1 2 Weight 106.5 kg Results 04/07/21 08:13 04/07/21 08:13 Cardiac Enzymes 04/06/21 04/06/21 04/07/21 Range/Units 15:53 23:50 08:13 AST (14-36) U/L Troponin I <0.012 <0.012 <0.012 (0.000-0.034) ng/mL 04/07/21 Range/Units 08:13 AST 43 H (14-36) U/L Troponin I (0.000-0.034) ng/mL Coagulation 04/07/21 04/07/21 Range/Units 08:02 11:23 PT 20.0 H (9.0-12.0) sec APTT 32.3 H (22.0-30.0) sec CBC 04/07/21 Range/Units 08:13 WBC 2.8 L (3.8-10.6) k/uL RBC 3.98 (3.80-5.40) m/uL Hgb 12.1 (11.4-16.0) gm/dL Hct 34.4 (34.0-46.0) % Plt Count 194 (150-450) k/uL Comprehensive Metabolic Panel 04/06/21 04/07/21 Range/Units 05:27 08:13 Sodium 138 138 (135-145) mmol/L Potassium 4.8 4.6 (3.5-5.5) mmol/L Chloride 104 102 (96-109) mmol/L Carbon Dioxide 25.4 30 (21.6-31.8) mmol/L BUN 14.0 14 (9.0-27.0) mg/dL Creatinine 0.7 0.77 (0.6-1.5) mg/dL Glucose 223 H 236 H (70-110) mg/dL Calcium 8.6 L 9.2 (8.7-10.3) mg/dL AST 43 H (14-36) U/L ALT 41 H (4-34) U/L Alkaline Phosphatase 69 (38-126) U/L Total Protein 6.3 (6.3-8.2) g/dL Albumin 3.9 (3.5-5.0) g/dL Current Medications Generic Name Dose Route Start Last Admin Trade Name Freq PRN Reason Stop Dose Admin Acetaminophen 1,000 mg 04/06/21 14:28 04/06/21 22:20 Acetaminophen Tab 500 Mg Tab PO 1,000 mg Q6HR PRN Administration Fever and/ or Pain Hydrocodone Bitart/Acetaminophen 1 each 04/04/21 12:38 04/07/21 12:36 Hydrocodone/Apap 5-325mg 1 Each Tab PO 1 each Q6HR PRN Administration Pain Atorvastatin Calcium 80 mg 04/04/21 10:15 04/07/21 09:51 Atorvastatin 80 Mg Tab PO 80 mg DAILY TIFFANIE Administration Clonazepam 1 mg 04/04/21 10:01 04/07/21 09:50 Clonazepam 1 Mg Tab PO 1 mg BID PRN Administration Anxiety Ergocalciferol 1,250 mcg 04/09/21 09:00 Ergocalciferol 1,250 Mcg (50,000 Iu) Capsule PO LEON TIFFANIE Fenofibrate 160 mg 04/04/21 10:15 04/07/21 09:51 Fenofibrate 160 Mg Tab PO 160 mg DAILY TIFFANIE Administration Fluticasone Propionate 1 spray 04/04/21 10:15 04/07/21 12:26 Fluticasone 50mcg/Elizabeth Nasal 16gm EA NOSTRIL 1 spray DAILY TIFFANIE Administration Heparin Sodium (Porcine) 0 unit 04/07/21 11:09 Heparin Sodium 1,000 Un/Ml (10ml Vl) IV PER PROTOCOL PRN Low PTT Protocol Hydromorphone HCl 0.5 mg 04/06/21 15:43 Hydromorphone 0.5 Mg/0.5 Ml Syringe IVP Q6HR PRN Pain Heparin Sodium/Sodium Chloride 250 mls @ 10 mls/hr 04/07/21 11:15 04/07/21 12:27 25,000 unit/ Sodium Chloride IV 9.39 units/kg/hr .Q24H TIFFANIE 10 mls/hr Administration Protocol 9.39 UNITS/KG/HR Insulin Aspart 15 unit 04/04/21 12:30 04/07/21 12:27 Insulin Aspart (Novolog) 100 Unit/Ml Vial SQ 15 unit AC-TID TIFFANIE Administration Insulin Detemir 40 unit 04/04/21 09:00 04/07/21 09:52 Insulin Detemir (Levemir) 100 Unit/Ml Syr SQ 40 unit DAILY@0700 TIFFANIE Administration Levothyroxine Sodium 112 mcg 04/04/21 10:15 04/07/21 06:02 Levothyroxine 112 Mcg Tab PO 112 mcg DAILY@0630 TIFFANIE Administration Metoprolol Succinate 100 mg 04/04/21 10:15 04/07/21 09:51 Metoprolol Succinate (Er) 100 Mg Tab.Er.24h PO 100 mg DAILY TIFFANIE Administration Miscellaneous Information 1 each 04/07/21 09:35 Magnesium Replacement Protocol 1 Each Misc MISCELLANE DAILY PRN Per Protocol Protocol Morphine Sulfate 4 mg 04/04/21 02:56 04/06/21 16:29 Morphine Sulfate 4 Mg/Ml Syringe IVP 4 mg Q4HR PRN Administration Pain Naloxone HCl 0.2 mg 04/04/21 03:39 Naloxone 0.4 Mg/Ml 1 Ml Vial IV Q2M PRN Opioid Reversal Nitroglycerin 0.4 mg 04/06/21 15:43 04/06/21 15:59 Nitroglycerin Sl Tabs 0.4 Mg Tab SUBLINGUAL 0.4 mg Q5M PRN Administration Chest Pain Olanzapine 20 mg 04/04/21 10:15 04/07/21 09:50 Olanzapine 10 Mg Tab PO 20 mg DAILY TIFFANIE Administration Venlafaxine HCl 300 mg 04/04/21 10:15 04/07/21 09:51 Venlafaxine Hcl Er 150 Mg Cap PO 300 mg DAILY TIFFANIE Administration Vitamin E 800 unit 04/04/21 10:15 04/07/21 09:51 Vitamin E (Dl,Tocopheryl Acet) 400 Unit Cap PO 800 unit DAILY TIFFANIE Administration Intake and Output 04/06/21 04/07/21 04/07/21 22:59 06:59 14:59 Intake Total 260 10 870 Output Total 400 Balance -140 10 870 Intake: IV 20 10 10 Invasive Line 1 20 10 10 Oral 240 860 Output: Urine 400 Other: Voiding Method Toilet # Voids 1 2 Weight 106.5 kg 04/07/21 08:13 04/07/21 08:13
[2021-04-07] MEDS: lisinopriL 5 MG TAB PO SCH (16:39)
[2021-04-07 16:48] LABS: Glucose,Whole Blood 131 mg/dL (75-99)
[2021-04-07 20:18] LABS: Glucose,Whole Blood 183 mg/dL (75-99)
--- NOTE | 2021-04-07 20:58 | PN ---
PROGRESS NOTE DATE OF SERVICE: 04/07/2021 This 60-year-old woman who was admitted with multiple symptomatology had chest pain also. The patient had an abnormal stress test. The patient has a history of premature coronary artery disease in her grandfather, who in his 30s. Cardiology has seen the patient and recommended possible cardiac catheterization. IV heparin has been initiated. PHYSICAL EXAMINATION: Alert and oriented x3. Pulse 74, blood pressure 130/86, respirations 16, temperature 97.6, pulse ox 93% on room air. HEENT: Conjunctivae normal. NECK: No jugular venous distention. CARDIOVASCULAR SYSTEM: S1, S2 muffled. RESPIRATORY SYSTEM: Breath sounds diminished at the bases. A few scattered rhonchi. ABDOMEN: Soft, non-tender. NERVOUS SYSTEM: No focal deficit. LABS: WBC 2.8. Glucose noted. Magnesium 1.5. ASSESSMENT: 1. Chest pain; rule out coronary artery disease with possible unstable angina with borderline positive stress test. 2. Acute gastroenteritis with severe dehydration, present on admission. 3. Possible acute viral illness, present on admission. 4. Mild leukopenia. 5. Severe hyponatremia, possibly hypovolemic. 6. Coumadin coagulopathy. 7. Leukopenia. 8. Hyponatremia. 9. Hyperkalemia. 10.Elevated D-dimer without any evidence of pulmonary embolism. 11.Hypochloremia. 12.Diabetes mellitus, type 2, uncontrolled with hyperglycemia. 13.Hypocalcemia. 14.Increased AST. 15.Anemia, normocytic anemia of chronic disease. 16.Gastroesophageal reflux disease. 17.Hypertension. 18.Hyperlipidemia. 19.History of pneumonia. 20.History of sleep apnea. 21.Hypothyroidism. 22.History of bilateral peripheral neuropathy. 23.History of rheumatic fever. 24.History of mechanical aortic valve replacement, on Coumadin. 25.History of appendectomy. 26.History of cardiac valve replacement. 27.History of transesophageal echocardiogram. 28.Perivalvular leak on the 2D echocardiogram. 29.Anxiety, bipolar. 30.Obesity with body mass index of 38.6. 31.FULL CODE. RECOMMENDATIONS AND DISCUSSION: I recommend to continue current medications, continue with the monitoring, symptomatic treatment. Cardiac cath per Cardiology. IV heparin drip to bridge. Will repeat and replace magnesium. Repeat labs. Guarded prognosis. Further recommendations to follow. MMODL / IJN: [id number] /
[2021-04-08] MEDS: LEVOTHYROXINE 112 MCG TAB PO SCH (06:36)
[2021-04-08 07:01] LABS: Glucose,Whole Blood 205 mg/dL (75-99)
[2021-04-08 08:26] LABS: Basophils % (A) 2 %; Eosinophils # (A) 0.1 k/uL (0-0.7); Eosinophils % (A) 5 %; HCT 33.1 % (34.0-46.0); HGB 11.6 gm/dL (11.4-16.0); Lymphocytes # (A) 0.7 k/uL (1.0-4.8); Lymphocytes % (A) 23 %; MCH 30.1 pg (25.0-35.0); MCHC 35.2 g/dL (31.0-37.0); MCV 85.6 fL (80.0-100.0); Mean Platelet Volume 6.8; Monocytes # (A) 0.2 k/uL (0-1.0); Monocytes % (A) 6 %; Neutrophils # (A) 1.9 k/uL (1.3-7.7); Neutrophils % (A) 63 %; Platelet Count 205 k/uL (150-450); RBC 3.86 m/uL (3.80-5.40); RDW 13.6 % (11.5-15.5)
[2021-04-08 08:27] LABS: INR 1.8 (<1.2); Partial Thromboplastin Time 49.3 sec (22.0-30.0); Prothrombin Time 17.6 sec (9.0-12.0)
[2021-04-08 08:44] LABS: African American GFR (CKD) >90 (>60 ml/min/1.73 sqM); Anion Gap 6 mmol/L; Blood Urea Nitrogen 15 mg/dL (7-17); Calcium 8.9 mg/dL (8.4-10.2); Carbon Dioxide 30 mmol/L (22-30); Chloride 100 mmol/L (98-107); Glucose 220 mg/dL (74-99); Magnesium 1.6 mg/dL (1.6-2.3); Non-African American GFR(CKD) 85 (>60 ml/min/1.73 sqM); Potassium 4.5 mmol/L (3.5-5.1); Sodium 136 mmol/L (137-145)
[2021-04-08] MEDS: HEPARIN SOD,PORK IN 0.45% NACL 25,000 UNIT in 0.45% NACL 1 250ML.BAG IV SCH (08:47)
[2021-04-08] MEDS: ASPIRIN 81 MG PO SCH (08:49)
[2021-04-08] MEDS: FENOFIBRATE 160 MG TAB PO SCH (08:49)
[2021-04-08] MEDS: METOPROLOL SUCCINATE (ER) 100 MG TAB.ER.24H PO SCH (08:49)
[2021-04-08] MEDS: ATORVASTATIN 80 MG TAB PO SCH (08:49)
[2021-04-08] MEDS: lisinopriL 5 MG TAB PO SCH (08:50)
[2021-04-08] MEDS: INSULIN ASPART (NovoLOG) 100 UNIT/ML VIAL SQ SCH ×3 (08:50→17:56)
[2021-04-08] MEDS: INSULIN DETEMIR (LEVEMIR) 100 UNIT/ML SYR SQ SCH (08:50)
[2021-04-08] MEDS: VITAMIN E (DL,TOCOPHERYL ACET) 400 UNIT CAP PO SCH (08:52)
[2021-04-08] MEDS: VENLAFAXINE HCL ER 150 MG CAP PO SCH (08:52)
[2021-04-08] MEDS: OLANZapine 10 MG TAB PO SCH (08:52)
[2021-04-08] MEDS: FLUTICASONE 50MCG/SPRAY NASAL 16GM EA NOSTRIL SCH (08:53)
[2021-04-08 11:57] LABS: Glucose,Whole Blood 303 mg/dL (75-99)
[2021-04-08 16:57] LABS: Glucose,Whole Blood 246 mg/dL (75-99)
--- NOTE | 2021-04-08 18:55 | P.PN ---
Subjective HISTORY OF PRESENTING ILLNESS This is a pleasant 60-year-old female past medical history significant for Type 2 Diabetes, Hypertension, Dyslipidemia, mechanical aortic valve replacement in 12/2012(on coumadin), total knee replacement. She follows in the office with Dr. Drapre. We have been asked to see in consultation for chest pain. Patient is seen and examined in the emergency department. Patient presents emergency department with worsening weakness in her bilateral legs and headaches. She also states that she had left-sided chest pain and upper back pain. She states that the only thing that has changed was some medications were added per websphere commerce developer, she states she did not like how they made her feel and these were stopped. She denies shortness of breath, diaphoresis, nausea, abdominal pain. EKG revealed sinus rhythm, heart rate 79, early repolarization in the inferior leads, T-wave inversion in V2. These are similar to prior EKGs. On admission, her sodium was 121, magnesium is 1.0, potassium 3.8, kidney function stable, troponin negative 3. Lipase is 343. Blood pressure 125/76, heart rate 83, afebrile, maintaining oxygen saturation is 97% on room air. Acute coronary syndrome was ruled out. No further inpatient workup was advised at that time. Cardiology signed off on 04/04. Lexiscan stress test was ordered by primary and revealed decreased perfusion cardiac apex with suspicious stress-induced ischemia on 04/06/21 . Cardiology was re-consulted. Patient seen and examined at bedside. No acute events overnight. She has been treated for acute gastroenteritis. Echocardiogram on 04/05 revealed an EF between 55-60%, periprosthetic regurgitation of the prosthetic aortic valve, peak/mean gradient 31mmHg/16.75mmHg. 04/08 Patient seen and examined. Patient denies any further chest pain. She has continued on a heparin drip. She states she has been walking to the bathroom without difficulty. PHYSICAL EXAMINATION Vitals reviewed CONSTITUTIONAL: No apparent distress. HEENT: Head is normocephalic. Pupils are equal, round. Sclerae anicteric. Mucous membranes of the mouth are moist. No JVD. No carotid bruit. CHEST EXAMINATION: Lungs are clear to auscultation. No chest wall tenderness is noted on palpation or with deep breathing. HEART EXAMINATION: Regular rate and rhythm. S1, S2 heard. aortic valve click, Systolic ejection murmur at the base No gallops or rub. ABDOMEN: Soft, nontender. Positive bowel sounds. EXTREMITIES: 2+ peripheral pulses, no lower extremity edema and no calf tenderness. NEUROLOGIC EXAMINATION: Patient is awake, alert and oriented x3. ASSESSMENT Chest pain somewhat atypical however abnormal stress test and may represent unstable angina Positive Lexiscan stress test Hypertension Type 2 Diabetes Dyslipidemia Aortic valve replacement - on coumadin Hyponatremia PLAN Plan for cardiac catheterization with Dr. Draper on Saturday. Continue heparin drip and hold Coumadin. Antianginals as able. Objective - Vital Signs Vital signs: Vital Signs Temp 98 F 04/08/21 08:00 Pulse 85 04/08/21 16:00 Resp 16 04/08/21 16:00 BP 142/78 04/08/21 16:00 Pulse Ox 95 04/08/21 16:00 Intake & Output 04/07/21 04/08/21 04/08/21 18:59 06:59 18:59 Intake Total 1720 2470.333 857.329 Output Total 600 Balance 1120 2470.333 857.329 Weight 102.9 kg Intake: IV 20 Invasive Line 1 20 Intake, IV Titration 70.333 161.329 Amount Heparin Sod,Pork in 0.45% 70.333 161.329 NaCl 25,000 unit In 0.45 % NaCl 1 250ml.bag @ 9.39 UNITS/KG/HR 10 mls/hr IV .Q24H [facility] Rx#:[id number] Oral 1700 2400 696 Output: Urine 600 Other: Voiding Method Toilet Toilet # Voids 2 3 - Labs CBC & Chem 7: 04/08/21 07:35 04/08/21 07:35 Labs: Abnormal Lab Results - Last 24 Hours (Table) 04/07/21 04/07/21 04/08/21 Range/Units 18:42 20:13 00:39 WBC (3.8-10.6) k/uL Hct (34.0-46.0) % Lymphocytes # (1.0-4.8) k/uL PT (9.0-12.0) sec INR (<1.2) APTT 41.1 H 49.2 H (22.0-30.0) sec Sodium (137-145) mmol/L Glucose (74-99) mg/dL POC Glucose (mg/dL) 183 H (75-99) mg/dL 04/08/21 04/08/21 04/08/21 Range/Units 06:59 07:35 07:35 WBC (3.8-10.6) k/uL Hct (34.0-46.0) % Lymphocytes # (1.0-4.8) k/uL PT 17.6 H (9.0-12.0) sec INR 1.8 H (<1.2) APTT 49.3 H (22.0-30.0) sec Sodium 136 L (137-145) mmol/L Glucose 220 H (74-99) mg/dL POC Glucose (mg/dL) 205 H (75-99) mg/dL 04/08/21 04/08/21 04/08/21 Range/Units 07:35 11:56 16:56 WBC 3.0 L (3.8-10.6) k/uL Hct 33.1 L (34.0-46.0) % Lymphocytes # 0.7 L (1.0-4.8) k/uL PT (9.0-12.0) sec INR (<1.2) APTT (22.0-30.0) sec Sodium (137-145) mmol/L Glucose (74-99) mg/dL POC Glucose (mg/dL) 303 H 246 H (75-99) mg/dL
[2021-04-08] MEDS: HYDROcodone/APAP 5-325MG 1 EACH TAB PO PRN (18:59)
[2021-04-08 20:26] LABS: Glucose,Whole Blood 207 mg/dL (75-99)
[2021-04-08] MEDS: clonazePAM 1 MG TAB PO PRN (20:35)
--- NOTE | 2021-04-08 20:46 | PN ---
PROGRESS NOTE DATE OF SERVICE: 04/08/2021 This 60-year-old woman was admitted with chest pain, had abnormal stress test. Cardiology following the patient closely. Recommended cardiac cath on Saturday. Heparin is being continued and Coumadin is on hold. No chest pain. No palpitations. No fever today. PHYSICAL EXAMINATION: Alert and oriented x3. The pulse is 85, blood pressure 140/70, respirations 16, temperature 98 degrees, pulse ox 94% on room air. HEENT: Conjunctivae normal. NECK: No JVD. CARDIOVASCULAR: S1, S2 muffled. RESPIRATORY SYSTEM: Breath sounds diminished at the bases. No rhonchi. No crackles. ABDOMEN: Soft. NERVOUS SYSTEM: No focal deficits. LABS: WBC 3, hemoglobin 11.6, otherwise sodium 136. ASSESSMENT: 1. Chest pain, possible unstable angina. Rule out coronary artery disease with abnormal stress test. 2. Acute gastroenteritis, severe dehydration, present on admission. 3. Possible acute viral illness, present on admission. 4. Mild leukopenia. 5. Severe hyponatremia possibly hypovolemic, present on admission. 6. Coumadin coagulopathy. 7. Leukopenia. 8. Heparin monitoring, heparin drip. 9. Hyponatremia. 10.Hyperkalemia. 11.Elevated D-dimer without any evidence of pulmonary embolism. 12.Hypochloremia. 13.Diabetes mellitus type 2, uncontrolled with hyperglycemia. 14.Hypocalcemia. 15.Increased AST. 16.Anemia, normocytic anemia of chronic disease. 17.Gastroesophageal reflux disease. 18.Hypertension. 19.Hyperlipidemia. 20.History of pneumonia. 21.History of sleep apnea. 22.Hypothyroidism. 23.History of bilateral peripheral neuropathy. 24.History of rheumatic fever. 25.History of mechanical aortic valve replacement on Coumadin. 26.History of appendectomy. 27.History of cardiac valve replacement. 28.History of BLANCA. 29.History of perivalvular leak in the 2D echocardiogram. 30.Anxiety/bipolar. 31.Obesity, body mass index 38.6. 32.FULL CODE. RECOMMENDATIONS AND DISCUSSION: Recommend to continue current management. Continue with monitoring. Continue IV heparin. Symptomatic treatment. Closely follow with Cardiology. Cardiac cath. Guarded prognosis. Further recommendations to follow. MMODL / IJN: [id number] /
[2021-04-09] MEDS: HEPARIN SOD,PORK IN 0.45% NACL 25,000 UNIT in 0.45% NACL 1 250ML.BAG IV SCH ×2 (03:38→21:50)
[2021-04-09] MEDS: LEVOTHYROXINE 112 MCG TAB PO SCH (06:22)
[2021-04-09 07:08] LABS: Glucose,Whole Blood 238 mg/dL (75-99)
[2021-04-09 08:14] LABS: INR 1.3 (<1.2); Partial Thromboplastin Time 42.1 sec (22.0-30.0); Prothrombin Time 13.6 sec (9.0-12.0)
[2021-04-09] MEDS: INSULIN DETEMIR (LEVEMIR) 100 UNIT/ML SYR SQ SCH (08:15)
[2021-04-09] MEDS: clonazePAM 1 MG TAB PO PRN ×2 (08:16→22:11)
[2021-04-09] MEDS: HYDROcodone/APAP 5-325MG 1 EACH TAB PO PRN ×2 (08:16→22:11)
[2021-04-09] MEDS: METOPROLOL SUCCINATE (ER) 100 MG TAB.ER.24H PO SCH (08:17)
[2021-04-09] MEDS: lisinopriL 5 MG TAB PO SCH (08:17)
[2021-04-09] MEDS: FENOFIBRATE 160 MG TAB PO SCH (08:17)
[2021-04-09] MEDS: ATORVASTATIN 80 MG TAB PO SCH (08:17)
[2021-04-09] MEDS: ASPIRIN 81 MG PO SCH (08:17)
[2021-04-09] MEDS: VITAMIN E (DL,TOCOPHERYL ACET) 400 UNIT CAP PO SCH (08:17)
[2021-04-09] MEDS: OLANZapine 10 MG TAB PO SCH (08:18)
[2021-04-09] MEDS: VENLAFAXINE HCL ER 150 MG CAP PO SCH (08:18)
[2021-04-09] MEDS: FLUTICASONE 50MCG/SPRAY NASAL 16GM EA NOSTRIL SCH (08:19)
[2021-04-09] MEDS: INSULIN ASPART (NovoLOG) 100 UNIT/ML VIAL SQ SCH ×3 (08:20→17:13)
[2021-04-09] MEDS ORDERED: ERGOCALCIFEROL 1,250 MCG (50,000 IU) CAPSULE PO SCH (09:00)
[2021-04-09 11:51] LABS: Glucose,Whole Blood 218 mg/dL (75-99)
--- NOTE | 2021-04-09 16:37 | P.PN ---
Subjective HISTORY OF PRESENTING ILLNESS This is a pleasant 60-year-old female past medical history significant for Type 2 Diabetes, Hypertension, Dyslipidemia, mechanical aortic valve replacement in 12/2012(on coumadin), total knee replacement. She follows in the office with Dr. Draper. We have been asked to see in consultation for chest pain. Patient is seen and examined in the emergency department. Patient presents emergency department with worsening weakness in her bilateral legs and headaches. She also states that she had left-sided chest pain and upper back pain. She states that the only thing that has changed was some medications were added per patient transporter, she states she did not like how they made her feel and these were stopped. She denies shortness of breath, diaphoresis, nausea, abdominal pain. EKG revealed sinus rhythm, heart rate 79, early repolarization in the inferior leads, T-wave inversion in V2. These are similar to prior EKGs. On admission, her sodium was 121, magnesium is 1.0, potassium 3.8, kidney function stable, troponin negative 3. Lipase is 343. Blood pressure 125/76, heart rate 83, afebrile, maintaining oxygen saturation is 97% on room air. Acute coronary syndrome was ruled out. No further inpatient workup was advised at that time. Cardiology signed off on 04/04. Lexiscan stress test was ordered by primary and revealed decreased perfusion cardiac apex with suspicious stress-induced ischemia on 04/06/21 . Cardiology was re-consulted. Patient seen and examined at bedside. No acute events overnight. She has been treated for acute gastroenteritis. Echocardiogram on 04/05 revealed an EF between 55-60%, periprosthetic regurgitation of the prosthetic aortic valve, peak/mean gradient 31mmHg/16.75mmHg. 04/08 Patient seen and examined. Patient denies any further chest pain. She has continued on a heparin drip. She states she has been walking to the bathroom without difficulty. 04/09 Patient seen and examined. Patient did have an episode of right-sided chest pain which was different than her left sided chest pain previously. It occurred earlier today and was worse with deep inspiration. It improved with a Rindge and denies any further episodes. She is maintained on the heparin drip and Coumadin has been held. PHYSICAL EXAMINATION Vitals reviewed CONSTITUTIONAL: No apparent distress. HEENT: Head is normocephalic. Pupils are equal, round. Sclerae anicteric. Mucous membranes of the mouth are moist. No JVD. No carotid bruit. CHEST EXAMINATION: Lungs are clear to auscultation. No chest wall tenderness is noted on palpation or with deep breathing. HEART EXAMINATION: Regular rate and rhythm. S1, S2 heard. aortic valve click, Systolic ejection murmur at the base No gallops or rub. ABDOMEN: Soft, nontender. Positive bowel sounds. EXTREMITIES: 2+ peripheral pulses, no lower extremity edema and no calf tenderness. NEUROLOGIC EXAMINATION: Patient is awake, alert and oriented x3. ASSESSMENT Chest pain somewhat atypical however abnormal stress test and may represent unstable angina Positive Lexiscan stress test Hypertension Type 2 Diabetes Dyslipidemia Aortic valve replacement - on coumadin Hyponatremia PLAN Plan for cardiac catheterization with Dr. Draper on Saturday. Continue heparin drip and hold Coumadin. Antianginals as able. Objective - Vital Signs Vital signs: Vital Signs Temp 97.7 F 04/09/21 08:00 Pulse 72 04/09/21 12:00 Resp 16 04/09/21 12:00 BP 135/80 04/09/21 12:00 Pulse Ox 94 L 04/09/21 12:00 Intake & Output 04/08/21 04/09/21 04/09/21 18:59 06:59 18:59 Intake Total 355.031 6965.651 356 Balance 689.495 8828.651 356 Weight 104.6 kg Intake: Intake, IV Titration 161.329 228.651 Amount Heparin Sod,Pork in 0.45% 161.329 228.651 NaCl 25,000 unit In 0.45 % NaCl 1 250ml.bag @ 9.39 UNITS/KG/HR 10 mls/hr IV .Q24H [facility] Rx#:[id number] Oral 696 1200 356 Other: Voiding Method Toilet Toilet Toilet # Voids 3 2 1 - Labs CBC & Chem 7: 04/08/21 07:35 04/08/21 07:35 Labs: Abnormal Lab Results - Last 24 Hours (Table) 04/08/21 04/08/21 04/09/21 Range/Units 16:56 20:20 06:47 PT 13.6 H (9.0-12.0) sec INR 1.3 H (<1.2) APTT 42.1 H (22.0-30.0) sec POC Glucose (mg/dL) 246 H 207 H (75-99) mg/dL 04/09/21 04/09/21 Range/Units 07:07 11:49 PT (9.0-12.0) sec INR (<1.2) APTT (22.0-30.0) sec POC Glucose (mg/dL) 238 H 218 H (75-99) mg/dL
[2021-04-09 17:08] LABS: Glucose,Whole Blood 234 mg/dL (75-99)
--- NOTE | 2021-04-09 18:39 | PN ---
PROGRESS NOTE DATE OF SERVICE: 04/09/2021 This 60-year-old woman was admitted with chest pain, had abnormal stress test. Cardiology planning cardiac cath tomorrow. No chest pain. No palpitations. No fever. PHYSICAL EXAMINATION: Alert and oriented x3. Pulse 72, blood pressure 130/80, respirations 16, temperature 97.9, pulse ox 94% on room air. HEENT: Conjunctivae normal. Oral mucosa moist. NECK: No jugular venous distention. No lymph node enlargement. CARDIOVASCULAR: S1, S2, muffled. No S3, no S4, RESPIRATORY: Diminished breath sounds at the bases. No rhonchi, no crackles. ABDOMEN: Soft, nontender. LEGS: No edema, no swelling. NERVOUS SYSTEM: No focal deficits. LABS: Accu-Cheks 238, 289, 234. Otherwise, WBC is 3 and hemoglobin 11.6. ASSESSMENT: 1. Chest pain, possible unstable angina. Rule out coronary artery disease with abnormal stress test. 2. Acute gastroenteritis, severe dehydration, present on admission. 3. Possible acute viral illness, present on admission. 4. Mild leukopenia. 5. Severe hyponatremia, possibly hypovolemic, present on admission. 6. Coumadin coagulopathy. 7. Leukopenia. 8. Heparin monitoring, heparin drip. 9. Hyponatremia. 10.Hyperkalemia. 11.Elevated D-dimer without any evidence of acute pulmonary embolism. 12.Hypochloremia. 13.Diabetes mellitus type 2, uncontrolled with hyperglycemia. 14.Hypocalcemia. 15.Increased AST. 16.Anemia, normocytic anemia of chronic disease. 17.Gastroesophageal reflux disease. 18.Hypertension. 19.Hyperlipidemia. 20.History of pneumonia. 21.History of sleep apnea. 22.Hypothyroidism. 23.History of bilateral peripheral neuropathy. 24.History of rheumatic fever. 25.History of mechanical aortic valve replacement on Coumadin. 26.Coumadin monitoring. 27.History of appendectomy. 28.History of cardiac valve replacement. 29.History of BLANCA. 30.History of perivalvular leak in the 2D echo. 31.Anxiety, bipolar. 32.Obesity, body mass index 38.6. 33.FULL CODE. RECOMMENDATIONS AND DISCUSSION: Recommend to continue current management and symptomatic treatment. Otherwise, continue with IV heparin. INR is only 1.3 today. The patient will need a bridging of Coumadin after the stenting. The blood sugar is also elevated. I would increase the dose of Levemir 40-45 units daily and continue to monitor. Further recommendations to follow. MMODL / IJN: [id number] /
[2021-04-09 19:10] LABS: ALT 36 U/L (4-34); AST 40 U/L (14-36); African American GFR (CKD) >90 (>60 ml/min/1.73 sqM); Albumin 4.1 g/dL (3.5-5.0); Alkaline Phosphatase 77 U/L (38-126); Anion Gap 8 mmol/L; Blood Urea Nitrogen 16 mg/dL (7-17); Calcium 9.5 mg/dL (8.4-10.2); Carbon Dioxide 25 mmol/L (22-30); Chloride 102 mmol/L (98-107); Glucose 214 mg/dL (74-99); Non-African American GFR(CKD) >90 (>60 ml/min/1.73 sqM); Potassium 4.3 mmol/L (3.5-5.1); Sodium 135 mmol/L (137-145); Total Bilirubin 0.4 mg/dL (0.2-1.3); Total Protein 6.3 g/dL (6.3-8.2)
[2021-04-09 20:18] LABS: Glucose,Whole Blood 241 mg/dL (75-99)
[2021-04-10] MEDS ORDERED: SODIUM CHLORIDE 0.9% 1,000 ML in EMPTY BAG 1 BAG IV ONE
[2021-04-10] MEDS ORDERED: ASPIRIN 325 MG TAB PO ONE (05:00)
[2021-04-10] MEDS: ASPIRIN 81 MG PO SCH (06:31)
[2021-04-10] MEDS: FENOFIBRATE 160 MG TAB PO SCH (06:32)
[2021-04-10] MEDS: lisinopriL 5 MG TAB PO SCH (06:32)
[2021-04-10] MEDS: VITAMIN E (DL,TOCOPHERYL ACET) 400 UNIT CAP PO SCH ×2 (06:32→06:37)
[2021-04-10] MEDS: LEVOTHYROXINE 112 MCG TAB PO SCH (06:32)
[2021-04-10] MEDS: VENLAFAXINE HCL ER 150 MG CAP PO SCH (06:32)
[2021-04-10] MEDS: ATORVASTATIN 80 MG TAB PO SCH (06:32)
[2021-04-10] MEDS: METOPROLOL SUCCINATE (ER) 100 MG TAB.ER.24H PO SCH (06:32)
[2021-04-10] MEDS: OLANZapine 10 MG TAB PO SCH (06:32)
[2021-04-10] MEDS ORDERED: ALPRAZolam 0.5 MG TAB PO PRN (07:00)
[2021-04-10] MEDS ORDERED: HEPARIN SODIUM,PORCINE 2,500 UNIT in SODIUM CHLORIDE 0.9% 250 ML IRRIGATION PRN (07:00)
[2021-04-10] MEDS ORDERED: HEPARIN SODIUM,PORCINE 10,000 UNIT in SODIUM CHLORIDE 0.9% 1,000 ML IRRIGATION PRN (07:00)
[2021-04-10] MEDS ORDERED: ALPRAZolam 0.25 MG TAB PO PRN (07:00)
[2021-04-10 07:09] LABS: Glucose,Whole Blood 264 mg/dL (75-99)
[2021-04-10 07:11] LABS: Basophils % (A) 1 %; Eosinophils # (A) 0.1 k/uL (0-0.7); Eosinophils % (A) 4 %; HCT 32.9 % (34.0-46.0); HGB 11.5 gm/dL (11.4-16.0); Lymphocytes # (A) 0.7 k/uL (1.0-4.8); Lymphocytes % (A) 23 %; MCH 30.3 pg (25.0-35.0); MCHC 35.1 g/dL (31.0-37.0); MCV 86.3 fL (80.0-100.0); Mean Platelet Volume 7.3; Monocytes # (A) 0.2 k/uL (0-1.0); Monocytes % (A) 7 %; Neutrophils % (A) 64 %; Platelet Count 211 k/uL (150-450); RBC 3.81 m/uL (3.80-5.40); RDW 13.6 % (11.5-15.5); WBC 3.1 k/uL (3.8-10.6)
[2021-04-10 07:27] LABS: INR 1.1 (<1.2); Partial Thromboplastin Time 43.6 sec (22.0-30.0); Prothrombin Time 11.6 sec (9.0-12.0)
[2021-04-10] MEDS: INSULIN ASPART (NovoLOG) 100 UNIT/ML VIAL SQ SCH ×3 (09:38→17:48)
[2021-04-10] MEDS: HYDROcodone/APAP 5-325MG 1 EACH TAB PO PRN ×2 (10:20→19:01)
[2021-04-10] MEDS: FLUTICASONE 50MCG/SPRAY NASAL 16GM EA NOSTRIL SCH (10:23)
[2021-04-10] MEDS ORDERED: fentaNYL (PF) 50 MCG/ML 2 ML AMP IVP ONE (12:35)
[2021-04-10] MEDS ORDERED: LIDOCAINE 1% INJ 10MG/ML (20 ML MDV) SQ ONE (12:37)
[2021-04-10] MEDS ORDERED: VERAPAMIL SYRINGE (5 MG/10 ML) INTRAARTER ONE (12:40)
[2021-04-10] MEDS ORDERED: MIDAZOLAM 2 MG/2 ML VIAL IVP ONE (12:40)
[2021-04-10] MEDS ORDERED: IV FLUID CONTINUATION 400 ML IV ONE (12:41)
[2021-04-10] MEDS ORDERED: HEPARIN SODIUM 1,000 UN/ML (10ML VL) IV ONE (12:45)
[2021-04-10] MEDS ORDERED: IOPAMIDOL-300 100ML BTL INJ ONE (12:52)
[2021-04-10] MEDS ORDERED: IOPAMIDOL-370 50ML BTL INJ ONE (12:52)
[2021-04-10] MEDS ORDERED: RX INFO: IV CONTRAST WAS GIVEN 1 EACH MISC MISCELLANE PRN (13:14)
[2021-04-10] MEDS ORDERED: SODIUM CHLORIDE 0.9% 1,000 ML IV SCH (13:15)
[2021-04-10 13:17] LABS: Glucose,Whole Blood 220 mg/dL (75-99)
[2021-04-10] MEDS: INSULIN DETEMIR (LEVEMIR) 100 UNIT/ML SYR SQ SCH (13:30)
[2021-04-10] MEDS: ACETAMINOPHEN TAB 500 MG TAB PO PRN (13:35)
[2021-04-10 17:26] LABS: Glucose,Whole Blood 205 mg/dL (75-99)
[2021-04-10] MEDS ORDERED: WARFARIN 5 MG TAB PO ONE (18:00)
--- NOTE | 2021-04-10 19:58 | CC ---
CARDIAC CATHETERIZATION REPORT April 10, 2021 To: Dr. Melissa Durham Re: Linda Isaac (64) Dear Dr. Durham, I had the pleasure of performing cardiac catheterization on Mrs. Isaac at [facility] today, and a full copy of the procedure note will be forwarded to you. In brief, she was found to have no evidence of significant obstructive coronary artery disease, with normal appearance of her prosthetic aortic valve. Based on those findings, I have recommended continued medical therapy with the aggressive coronary risk modifications that have been initiated. Thank you again for allowing me to participate in her care. Please feel free to call with any questions. Sincerely yours, Cabrera Draper M.D. MICKI / JULIETH: [id number] /
--- NOTE | 2021-04-10 19:58 | CC ---
CARDIAC CATHETERIZATION REPORT Mrs. Isaac is a 60-year-old female with known history of aortic valve replacement who presented with symptoms of chest discomfort with no evidence of acute myocardial infarction. She subsequently underwent myocardial perfusion imaging that revealed evidence of inducible ischemia. In view of that, recommendation was made regarding cardiac catheterization. The procedure, its risks and complications were discussed with the patient, who was in full understanding and agreement. PROCEDURE DESCRIPTION: Patient was brought to the solder making laborer in a fasting, semi-sedated state. After receiving fentanyl and Benadryl and achieving a moderate conscious sedated state, using Xylocaine anesthesia and Seldinger technique, a 6-Faroese sheath was introduced in the right radial artery. Selective right and left coronary angiography was performed using 5- Faroese 3.5 bend right and left Faby catheters. Multiple views were taken of the coronary arteries, including hemiaxial views. Following that, a 5-Faroese tight pigtail catheter was introduced into the system and an TRINIDADIAN view of the ascending aorta was performed. Following that, catheter and sheath were removed. Hemostasis was obtained with deployment of a TR band. There was no immediate complication. Patient was returned to her room in stable condition. Of note, the patient received 5000 units of intravenous heparin as well as intra-arterial verapamil. FINDINGS: LEFT MAIN: This is a large-sized vessel bifurcating into left circumflex and left anterior descending artery. Left main coronary artery has no evidence of high-grade stenosis. LEFT ANTERIOR DESCENDING ARTERY: This is a large-sized vessel. It tapers down in the distal third, giving rise to a large diagonal branch in the mid segment. The left anterior descending artery as well as its branches have no evidence of obstructive coronary artery disease. LEFT CIRCUMFLEX: This is a nondominant vessel giving rise to 2 obtuse marginal branches. The left circumflex as well as its branches have no evidence of obstructive coronary artery disease. RIGHT CORONARY ARTERY: This is a large dominant vessel bifurcating into PDA and posterolateral segment and branches. The proximal right coronary artery has 10% to 20% plaque. The rest of the vessel has no high-grade stenosis. AORTOGRAM: Aortogram was performed in the TRINIDADIAN view and revealed normal appearance of the ascending aorta with 1+ aortic regurgitation. FLUOROSCOPY: There was evidence of a dual tilted-disc aortic valve with normal function. CONCLUSION: 1. 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 2. Normal appearance of the ascending aorta with 1+ aortic regurgitation. 3. Normal appearance by fluoroscopy of the aortic valve metallic prosthesis. RECOMMENDATIONS: In view of findings and anatomy, I have recommended continued medical therapy with the aggressive coronary risk modifications that have been initiated. Those findings and recommendation were discussed with the patient and her family, and they are in full understanding and agreement. Duration of sedation 17 minutes. MMBERNADINE / SONIAN: [id number] /
--- NOTE | 2021-04-10 20:34 | PN ---
PROGRESS NOTE DATE OF SERVICE: 04/10/2021 This 60-year-old woman who was admitted with chest pain had a cardiac catheterization. The patient had an abnormal stress test. The full report of the cardiac catheterization is pending at this time, but apparently the patient had clean coronary arteries. The patient also had some chest pain on the table. No fever. No cough. PHYSICAL EXAMINATION: Alert and oriented x3. Pulse 73, blood pressure 130/81, respirations 16, temperature 98.4, pulse ox 96% on room air. HEENT: Conjunctivae normal. NECK: No jugular venous distention. CARDIOVASCULAR SYSTEM: S1, S2 muffled. RESPIRATORY SYSTEM: Breath sounds diminished at the bases. No rhonchi. No crackles. ABDOMEN: Soft, non-tender. LEGS: No edema. No swelling. NERVOUS SYSTEM: No focal deficit. LABS: WBC 3.1. Other labs are noted. ASSESSMENT: 1. Chest pain with abnormal stress test with normal coronary arteries. Rule out coronary vasospasm or musculoskeletal chest pain. 2. Acute gastroenteritis and severe dehydration, present on admission. 3. Possible acute viral illness, present on admission. 4. Mild leukopenia. 5. Severe hyponatremia, possibly hypovolemic, present on admission. 6. Coumadin coagulopathy. 7. Leukopenia. 8. Heparin monitoring. 9. Hyponatremia. 10.Hyperkalemia. 11.Elevated D-dimer without any evidence of acute pulmonary embolism. 12.Hypochloremia. 13.Diabetes mellitus, type 2, uncontrolled with hyperglycemia. 14.Hypocalcemia. 15.Increased AST. 16.Anemia, normocytic anemia of chronic disease. 17.Gastroesophageal reflux disease. 18.Hypertension. 19.Hyperlipidemia. 20.History of pneumonia. 21.History of sleep apnea. 22.Hypothyroidism. 23.History of bilateral peripheral neuropathy. 24.History of rheumatic fever. 25.History of mechanical aortic valve replacement, on Coumadin. 26.Coumadin monitoring. 27.Appendectomy. 28.History of cardiac valve replacement. 29.History of transesophageal echocardiogram. 30.History of perivalvular leak on the 2D echo. 31.Anxiety, bipolar. 32.Obesity. Body mass index of 38.6. 33.FULL CODE. RECOMMENDATIONS AND DISCUSSION: I recommend to continue current medications, continue with the monitoring, symptomatic treatment. Will await the full cardiac cath report. Otherwise, continue the current medications, symptomatic treatment. Further recommendations to follow. Continue the rest of the medication. Follow-up labs will be ordered. MMODL / IJN: [id number] /
[2021-04-10 20:39] LABS: Glucose,Whole Blood 205 mg/dL (75-99)
[2021-04-10] MEDS: clonazePAM 1 MG TAB PO PRN (21:39)
[2021-04-11 03:26] VITALS: RESP 16
[2021-04-11] MEDS: LEVOTHYROXINE 112 MCG TAB PO SCH (06:02)
[2021-04-11 07:11] LABS: Glucose,Whole Blood 201 mg/dL (75-99)
[2021-04-11] MEDS: INSULIN DETEMIR (LEVEMIR) 100 UNIT/ML SYR SQ SCH (07:13)
[2021-04-11] MEDS: INSULIN ASPART (NovoLOG) 100 UNIT/ML VIAL SQ SCH ×2 (07:14→12:56)
[2021-04-11 07:29] LABS: Basophils % (A) 1 %; Eosinophils # (A) 0.2 k/uL (0-0.7); Eosinophils % (A) 5 %; HGB 11.9 gm/dL (11.4-16.0); Lymphocytes # (A) 0.6 k/uL (1.0-4.8); Lymphocytes % (A) 19 %; MCH 30.7 pg (25.0-35.0); MCHC 36.1 g/dL (31.0-37.0); MCV 85.1 fL (80.0-100.0); Mean Platelet Volume 6.9; Monocytes # (A) 0.2 k/uL (0-1.0); Monocytes % (A) 6 %; Neutrophils # (A) 2.1 k/uL (1.3-7.7); Neutrophils % (A) 67 %; Platelet Count 204 k/uL (150-450); RBC 3.87 m/uL (3.80-5.40); RDW 13.5 % (11.5-15.5); WBC 3.1 k/uL (3.8-10.6)
[2021-04-11 07:40] LABS: Prothrombin Time 11.1 sec (9.0-12.0)
[2021-04-11 07:48] LABS: African American GFR (CKD) >90 (>60 ml/min/1.73 sqM); Anion Gap 7 mmol/L; Blood Urea Nitrogen 12 mg/dL (7-17); Calcium 9.3 mg/dL (8.4-10.2); Carbon Dioxide 26 mmol/L (22-30); Chloride 104 mmol/L (98-107); Glucose 204 mg/dL (74-99); Magnesium 1.4 mg/dL (1.6-2.3); Non-African American GFR(CKD) >90 (>60 ml/min/1.73 sqM); Potassium 4.7 mmol/L (3.5-5.1); Sodium 137 mmol/L (137-145)
[2021-04-11] MEDS: VENLAFAXINE HCL ER 150 MG CAP PO SCH (08:24)
[2021-04-11] MEDS: METOPROLOL SUCCINATE (ER) 100 MG TAB.ER.24H PO SCH (08:24)
[2021-04-11] MEDS: FENOFIBRATE 160 MG TAB PO SCH (08:24)
[2021-04-11] MEDS: ATORVASTATIN 80 MG TAB PO SCH (08:24)
[2021-04-11] MEDS: OLANZapine 10 MG TAB PO SCH (08:24)
[2021-04-11] MEDS: lisinopriL 5 MG TAB PO SCH (08:24)
[2021-04-11] MEDS: FLUTICASONE 50MCG/SPRAY NASAL 16GM EA NOSTRIL SCH (08:26)
[2021-04-11] MEDS ORDERED: MAGNESIUM SULFATE-D5W PMX 1 GM in DEXTROSE/WATER 1 100ML.BAG IVPB ONE (08:47)
[2021-04-11] MEDS: VITAMIN E (DL,TOCOPHERYL ACET) 400 UNIT CAP PO SCH (09:26)
[2021-04-11 09:27] VITALS: BMI 38.9
--- NOTE | 2021-04-11 11:26 | US ---
EXAMINATION TYPE: US venous doppler duplex LE DATE OF EXAM: 04/11/2021 11:15 AM COMPARISON: US 08/03/17, US 07/20/16 CLINICAL HISTORY: Rule out DVT. SIDE PERFORMED: Bilateral TECHNIQUE: The lower extremity deep venous system is examined utilizing real time linear array sonog [place] with graded compression, doppler sonography and color-flow sonography. VESSELS IMAGED: Common Femoral Vein Deep Femoral Vein Greater Saphenous Vein * Femoral Vein Popliteal Vein Small Saphenous Vein * Proximal Calf Veins (* superficial vessels) Right Leg: Negative for DVT Left Leg: Negative for DVT Fluid collection in Right popliteal fossa as seen previously. Probable Bakers cyst = 2.3 x 1.8 x 1.4 cm redemonstrated Grayscale, color doppler, spectral doppler imaging performed of the deep veins of the bilateral lower extremities. There is normal flow, compressibility, vascular waveforms. IMPRESSION: No ultrasound evidence for acute DVT in either lower extremity.
--- NOTE | 2021-04-11 11:39 | P.PN ---
Subjective HISTORY OF PRESENTING ILLNESS This is a pleasant 60-year-old female past medical history significant for diabetes mellitus, hypertension, dyslipidemia and mechanical aortic valve replacement in 01/07 on coumadin. She follows in the office with Dr. Draper. We have been asked to see in consultation for chest pain. Patient is seen and examined in the emergency department. Patient presents emergency department with worsening weakness in her bilateral legs and headaches. She also states that she had left-sided chest pain and upper back pain. 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 She denies shortness of breath, diaphoresis, nausea, abdominal pain. EKG revealed sinus rhythm, heart rate 79, early repolarization in the inferior leads, T-wave inversion in V2. These are similar to prior EKGs. On admission, her sodium was 121, magnesium is 1.0, potassium 3.8, kidney function stable, troponin negative 3. Lipase is 343. Blood pressure 125/76, heart rate 83, afebrile, maintaining oxygen saturation is 97% on room air. Acute coronary syndrome was ruled out. No further inpatient workup was advised at that time. Cardiology signed off on 04/04. Lexiscan stress test was ordered by primary and revealed decreased perfusion cardiac apex with suspicious stress-induced ischemia on 04/06/21 . Cardiology was re-consulted. Patient seen and examined at bedside. No acute events overnight. She has been treated for acute gastroenteritis. Echocardiogram on 04/05 revealed an EF between 55-60%, periprosthetic regu rgitation of the prosthetic aortic valve, peak/mean gradient 31mmHg/16.75mmHg. 04/11/2021 Patient was seen and examined sitting up in no acute distress. She denies symptoms of chest discomfort, shortness of breath, dizziness or palpitations. She underwent cardiac catheterization yesterday revealing left main with no significant disease, LAD with no obstructive disease, RCA with a 10-20% plaque in the proximal portion, circumflex with no obstructive disease, aortogram is performed revealed normal appearance of the ascending aorta with 1+ aortic regurgitation and normally functioning metallic prosthetic aortic valve. Blood pressure 141/85 heart rate 76 afebrile maintaining oxygen saturation on room air. Laboratory data reviewed, sodium 137, potassium 4.7, creatinine 0.7 and magnesium 1.4. GENERAL: Well-appearing, well-nourished and in no acute distress. NECK: Supple without JVD or thyromegaly. LUNGS: Breath sounds clear to auscultation bilaterally. Respiration equal and unlabored. No wheezes, rales or rhonchi. HEART: Regular rate and rhythm with mechanical click, no murmurs, rubs or gallops. S1 and S2 heard. EXTREMITIES: Normal range of motion, no edema. No clubbing or cyanosis. Peripheral pulses intact. Right radial access site soft, non-tender, no ecchymosis or hematoma. ASSESSMENT Chest pain, atypical Mechanical aortic valve replacement on coumadin Hypertension Dyslipidemia Diabetes mellitus PLAN Stable for discharge from a cardiac perspective. Follow up with Dr. Draper in 1-week. Resume coumadin as previously ordered. Nurse Practitioner note has been reviewed, I agree with a documented findings and plan of care. Patient was seen and examined. Objective - Vital Signs Vital signs: Vital Signs Temp 97.4 F L 04/11/21 08:22 Pulse 76 04/11/21 08:22 Resp 16 04/11/21 08:22 BP 141/85 04/11/21 08:22 Pulse Ox 97 04/11/21 08:22 Intake & Output 04/10/21 04/11/21 04/11/21 18:59 06:59 18:59 Intake Total 1256.824 100 630 Balance 1256.824 100 630 Weight 103 kg 103 kg Intake: IV 100 Intake, IV Titration 176.824 Amount Heparin Sod,Pork in 0.45% 176.824 NaCl 25,000 unit In 0.45 % NaCl 1 250ml.bag @ 9.39 UNITS/KG/HR 10 mls/hr IV .Q24H [facility] Rx#:[id number] Oral 980 100 630 Other: Voiding Method Toilet # Voids 1 2 - Labs CBC & Chem 7: 04/11/21 07:15 04/11/21 07:15 Labs: Abnormal Lab Results - Last 24 Hours (Table) 04/10/21 04/10/21 04/10/21 Range/Units 13:15 17:24 20:38 WBC (3.8-10.6) k/uL Hct (34.0-46.0) % Lymphocytes # (1.0-4.8) k/uL Glucose (74-99) mg/dL POC Glucose (mg/dL) 220 H 205 H 205 H (75-99) mg/dL Magnesium (1.6-2.3) mg/dL 04/11/21 04/11/21 04/11/21 Range/Units 07:06 07:15 07:15 WBC 3.1 L (3.8-10.6) k/uL Hct 33.0 L (34.0-46.0) % Lymphocytes # 0.6 L (1.0-4.8) k/uL Glucose 204 H (74-99) mg/dL POC Glucose (mg/dL) 201 H (75-99) mg/dL Magnesium 1.4 L (1.6-2.3) mg/dL
[2021-04-11 12:05] LABS: Glucose,Whole Blood 158 mg/dL (75-99)
[2021-04-11 12:09] VITALS: BP 146/83; PULSE 79; TEMP 97.9
[2021-04-11] MEDS: HEPARIN SOD,PORK IN 0.45% NACL 25,000 UNIT in 0.45% NACL 1 250ML.BAG IV SCH (13:12)
[2021-04-11] MEDS ORDERED: WARFARIN 5 MG TAB PO ONE (18:00)
--- NOTE | 2021-04-11 23:43 | P.DS ---
Providers Date of admission: 04/04/21 03:40 Attending physician: Guzman Esparza Consults: 04/04/21 03:39 Consult Physician Routine Consulting Provider: Cabrera Draepr Consult Reason/Comments: cp Do you want consulting provider notified?: Yes 04/06/21 14:20 Consult Physician Urgent Consulting Provider: Luis Watkins Consult Reason/Comments: abnormal stress test Do you want consulting provider notified?: Yes Primary care physician: Melissa Durham Hospital Course: Diagnoses: Chest pain with abnormal stress test but negative for cardiac cath. CTA is negative for PE. Improved Elevated d-dimer with negative CTA for PE and negative Doppler ultrasound for lower extremity DVT History of metallic aortic valve replacement on Coumadin. Diabetes mellitus, with hyperglycemia and hemoglobin A1c 8.7%. Hospital course: This is a pleasant 60 years old female with past medical history of diabetes mellitus presents because of chest pain. Patient underwent cardiac cath for abnormal stress test however this was showing no significant coronary artery disease. D-dimer was elevated 1.08 however CTA of the chest is negative for pulmonary embolism and Doppler of the legs is negative for deep venous thrombosi s. Today patient is alert awake oriented 3, her chest pain is significantly improved. No dyspnea. No headache or weakness. No abdominal pain. No change in urine or bowel habits. No fever. Patient is aware of her diagnosis. She states that she is on Coumadin 10 mg daily and her target INR is 2.5-3.5, she is aware her INR today is 1.0. I discussed the case with cardiology team/Janelle and they did not recommend Lovenox as patient would be at high risk of bleeding. And the recommended to continue with Coumadin at home dose of 10 mg daily. I called patient PCP Dr. Melissa Winkler discussed the case with her with a recommendation for close monitoring for her INR, she has appointment with Dr. Roman on 04/13 and patient agrees with this the follow-up plan. Patient was cleared for discharge by oyster farmer Problems and management plan were discussed with the patient and he verbalized understanding and acceptance Patient was found stable and can be discharged home however he needs follow-up as an outpatient. Patient was instructed to follow up with PCP Dr. Melissa Roman within one week and patient agrees appointment on 04/13 (appointment was made by patient herself), also patient was instructed to follow up with oyster farmer Dr. Draper 1-2 weeks and she agrees with staff making an appointment for her Physical exam Gen: patient is a AAOx3, no distress CVS: S1-S2, RRR, no murmur Lungs: B/L CTA, no wheezing Abdomen: soft, no distention, no tenderness, positive bowel sounds Extremity: no leg edema or induration Time spent more than 35 minutes Patient Condition at Discharge: Good Plan - Discharge Summary Discharge Rx Participant: No New Discharge Prescriptions: New Magnesium Oxide [Mag-Ox] 400 mg PO DAILY 5 Days #5 tablet Continue OLANZapine [ZyPREXA] 20 mg PO DAILY Vitamin E (Dl,Tocopheryl Acet) [Vitamin E] 1,000 unit PO DAILY Metoprolol Succinate (ER) [Toprol XL] 100 mg PO DAILY metFORMIN HCL 1,000 mg PO BID lisinopriL [Zestril] 5 mg PO DAILY Levothyroxine Sodium [Synthroid] 112 mcg PO DAILY clonazePAM 1 mg PO BID PRN PRN Reason: Anxiety Ergocalciferol [Vitamin D2 (1250 Mcg = 63360 Iu)] 1,250 mcg PO LEON Venlafaxine HCl [Effexor XR] 300 mg PO DAILY Insulin Glargine,Hum.rec.anlog [Basaglar Kwikpen U-100] 40 unit SQ QAM INSULIN ASPART (NovoLOG) [NovoLOG (formulary)] 15 units SQ AC-TID Fenofibrate Nanocrystallized [Fenofibrate] 145 mg PO DAILY Atorvastatin [Lipitor] 80 mg PO DAILY Ascorbic Acid [Vitamin C] 4,000 mg PO DAILY Warfarin [Coumadin] 10 mg PO DAILY #30 tab Fluticasone Nasal [place] [Flonase Nasal [place]] 1 spray EA NOSTRIL DAILY Changed Insulin Glargine,Hum.rec.anlog [Basaglar Kwikpen U-100] 45 unit SQ DAILY #1 vial Discharge Medication List Ergocalciferol [Vitamin D2 (1250 Mcg = 28621 Iu)] 1,250 mcg PO LEON 02/02/21 [History] Fenofibrate Nanocrystallized [Fenofibrate] 145 mg PO DAILY 02/02/21 [History] INSULIN ASPART (NovoLOG) [NovoLOG (formulary)] 15 units SQ AC-TID 02/02/21 [History] Insulin Glargine,Hum.rec.anlog [Basaglar Kwikpen U-100] 40 unit SQ QAM 02/02/21 [History] Levothyroxine Sodium [Synthroid] 112 mcg PO DAILY 02/02/21 [History] Metoprolol Succinate (ER) [Toprol XL] 100 mg PO DAILY 02/02/21 [History] OLANZapine [ZyPREXA] 20 mg PO DAILY 02/02/21 [History] Venlafaxine HCl [Effexor XR] 300 mg PO DAILY 02/02/21 [History] Vitamin E (Dl,Tocopheryl Acet) [Vitamin E] 1,000 unit PO DAILY 02/02/21 [History] clonazePAM 1 mg PO BID PRN 02/02/21 [History] lisinopriL [Zestril] 5 mg PO DAILY 02/02/21 [History] metFORMIN HCL 1,000 mg PO BID 02/02/21 [History] Atorvastatin [Lipitor] 80 mg PO DAILY 02/07/21 [History] Ascorbic Acid [Vitamin C] 4,000 mg PO DAILY 04/04/21 [History] Fluticasone Nasal [place] [Flonase Nasal [place]] 1 spray EA NOSTRIL DAILY 04/04/21 [History] Insulin Glargine,Hum.rec.anlog [Basaglar Kwikpen U-100] 45 unit SQ DAILY #1 vial 04/11/21 [Rx] Magnesium Oxide [Mag-Ox] 400 mg PO DAILY 5 Days #5 tablet 04/11/21 [Rx] Warfarin [Coumadin] 10 mg PO DAILY #30 tab 04/11/21 [Rx] Follow up Appointment(s)/Referral(s): Cabrera Draper MD [STAFF PHYSICIAN] - 04/19/21 3:30 pm (No available appointments tomorrow with your INR check. ) Melissa Durham MD [Primary Care Provider] - 04/13/21 1:30 pm Patient Instructions/Handouts: *Surgery [facility] - After Heart Catheterization - Economic Development Specialist Instructions, Heart Healthy Diet (DC), Hyponatremia (ED), Hypomagnesemia (ED) Activity/Diet/Wound Care/Special Instructions: Heart healthy diet Activity is restricted till you see your doctor Check your INR with Dr. Draper office in 1-2 days. Target INR is 2.5-3.5. We recommend to recheck your blood glucose 4 times a day before each meal and at bedtime. Keep the result and a log book and bring continue care doctor on your appointment date If your glucose less than 70 or more than 400, then call 911 on come to emergency room Discharge Disposition: HOME SELF-CARE
== END 2021-04-11 13:16 | disposition home or self-care (01) | DRG 287 ==
LOC: EC 01:22 → 3SCARD 03:40 → 4SSUR 16:49 → 3SCARD 04-06 16:36
PROVIDERS: ADMIT Hospitalist; ATTEND Hospitalist
PROC: B2111ZZ Fluoroscopy of Multiple Coronary Arteries using Low Osmolar Contrast (ICD-10-PCS; principal; 2021-04-10 12:00)
DX: R07.89 Other chest pain (principal); E87.1 Hypo-osmolality and hyponatremia; T82.03XA Leakage of heart valve prosthesis, initial encounter; J98.11 Atelectasis; K52.9 Noninfective gastroenteritis and colitis, unspecified; E83.51 Hypocalcemia; D63.8 Anemia in other chronic diseases classified elsewhere; E11.42 Type 2 diabetes mellitus with diabetic polyneuropathy; E11.65 Type 2 diabetes mellitus with hyperglycemia; F31.9 Bipolar disorder, unspecified; Z79.4 Long term (current) use of insulin; Z20.822 Contact with and (suspected) exposure to COVID-19; E86.0 Dehydration; E83.42 Hypomagnesemia; E87.5 Hyperkalemia; E86.1 Hypovolemia; E87.8 Other disorders of electrolyte and fluid balance, not elsewhere classified; I10 Essential (primary) hypertension; G47.33 Obstructive sleep apnea (adult) (pediatric); E78.5 Hyperlipidemia, unspecified; E03.9 Hypothyroidism, unspecified; G62.9 Polyneuropathy, unspecified; K21.9 Gastro-esophageal reflux disease without esophagitis; D72.819 Decreased white blood cell count, unspecified; F41.9 Anxiety disorder, unspecified; K59.00 Constipation, unspecified; R79.1 Abnormal coagulation profile; T45.515A Adverse effect of anticoagulants, initial encounter; E66.9 Obesity, unspecified; Z68.38 Body mass index [BMI] 38.0-38.9, adult; Z79.890 Hormone replacement therapy; Z79.01 Long term (current) use of anticoagulants; Z79.899 Other long term (current) drug therapy; Z86.19 Personal history of other infectious and parasitic diseases; Z90.49 Acquired absence of other specified parts of digestive tract; Z87.19 Personal history of other diseases of the digestive system; Z98.891 History of uterine scar from previous surgery; Z95.2 Presence of prosthetic heart valve; Z96.652 Presence of left artificial knee joint; Z87.01 Personal history of pneumonia (recurrent); Z87.42 Personal history of other diseases of the female genital tract; Z87.39 Personal history of other diseases of the musculoskeletal system and connective tissue; Z98.890 Other specified postprocedural states; Z71.3 Dietary counseling and surveillance; Z88.5 Allergy status to narcotic agent; Y83.1 Surgical operation with implant of artificial internal device as the cause of abnormal reaction of the patient, or of later complication, without mention of misadventure at the time of the procedure; Z81.1 Family history of alcohol abuse and dependence; Z81.8 Family history of other mental and behavioral disorders; Z82.49 Family history of ischemic heart disease and other diseases of the circulatory system
CPT/HCPCS: 36415; 71046; 71275; 78452; 80048; 80053; 81003; 82150; 83036; 83690; 83735; 83880; 84100; 84484; 85025; 85027; 85379; 85610; 85730; 87502; 87635; 93005; 93017; 93306; 93458; 93567; 93970; 96374; 99285

== ENCOUNTER → 2021-04-17 | Outpatient (CLI) | payer MEDICARE, OTHER ==
[2021-04-18 09:58] VITALS: BMI 40.1
== END ==
LOC: BARWHC3 08:34
PROVIDERS: ATTEND Surgery
DX: E66.01 Morbid (severe) obesity due to excess calories (principal); Z71.3 Dietary counseling and surveillance; Z68.41 Body mass index [BMI] 40.0-44.9, adult; Z88.5 Allergy status to narcotic agent
CPT/HCPCS: 97804

== ENCOUNTER → 2021-05-09 | Outpatient (CLI) | payer MEDICARE, OTHER ==
[2021-05-09 14:07] VITALS: BP 157/87; PULSE 108; RESP 16; TEMP 98.3; BMI 39.4
--- NOTE | 2021-05-09 21:13 | P.BASOAP ---
Subjective Progress Note Date: 05/09/21 Principal diagnosis: Morbid obesity Patient returns for reevaluation. Underwent EGD in January showing mild gastritis. She has been seen by her kit assembler and cleared although we are waiting for proper documentation. No new changes to her history and physical from prior. Remains interested in sleeve gastrectomy. Objective - Vital Signs Vital signs: Vital Signs Temp 98.3 F 05/09/21 14:02 Pulse 108 H 05/09/21 14:02 Resp 16 05/09/21 14:02 BP 157/87 05/09/21 14:02 Pulse Ox Intake & Output 05/09/21 05/09/21 05/10/21 06:59 18:59 06:59 Weight 102.512 kg - Exam Abdomen: Soft, nontender, nondistended Assessment/Plan (1) Obesity (BMI 30-39.9) Narrative/Plan: 61-year-old female with obesity and BMI of 39. Patient remains interested in sleeve gastrectomy. Surgical risks and weight loss expectations again reviewed. Await formal cardiac clearance. Currently scheduled for 06/12. Plan: Date: 05/09/21 Initial Weight: 102.058 kg Initial BMI: 39.2 Current Weight: 102.512 kg Current BMI: 39.4 Type of Surgery: Total Volume in Band: Previous Volume: Volume Removed: Volume Added: Band Size:
== END ==
LOC: BARWHC3 12:51
PROVIDERS: ATTEND Surgery
DX: E66.01 Morbid (severe) obesity due to excess calories (principal); Z68.39 Body mass index [BMI] 39.0-39.9, adult; Z88.5 Allergy status to narcotic agent
CPT/HCPCS: 99211

== ENCOUNTER 2021-05-19 00:27 | Emergency (ER) | payer MEDICARE, OTHER ==
[2021-05-19 00:43] VITALS: RESP 17
[2021-05-19] MEDS ORDERED: HYDROmorphone 1 MG/ML 1 ML SYRINGE IM STA (00:49)
[2021-05-19 01:25] LABS: Appearance,Urine Clear (Clear); Bilirubin,Urine Negative (Negative); Blood,Urine Negative (Negative); Color,Urine Light Yellow; Glucose,Urine (UA) 3+ (Negative); Ketones,Urine Negative (Negative); Leukocyte Esterase,Urine Negative (Negative); Nitrite,Urine Negative (Negative); Protein,Urine Negative (Negative); Specific Gravity,Urine 1.004 (1.001-1.035); Urobilinogen,Urine <2.0 mg/dL (<2.0)
--- NOTE | 2021-05-19 01:43 | ED ---
Back Pain HPI - General Chief Complaint: Extremity Injury, Lower Stated Complaint: Hip pain Time Seen by Provider: 05/19/21 00:29 Source: patient, EMS Limitations: no limitations - Related Data Home Medications Medication Instructions Recorded Confirmed Ergocalciferol [Vitamin D2 (1250 1,250 mcg PO LEON 02/02/21 05/10/21 Mcg = 40537 Iu)] Fenofibrate Nanocrystallized 145 mg PO DAILY 02/02/21 05/10/21 [Fenofibrate] INSULIN ASPART (NovoLOG) [NovoLOG 15 units SQ AC-TID 02/02/21 05/10/21 (formulary)] Insulin Glargine,Hum.rec.anlog 40 unit SQ QAM 02/02/21 05/10/21 [Basaglar Kwikpen U-100] Levothyroxine Sodium [Synthroid] 112 mcg PO DAILY 02/02/21 05/10/21 Metoprolol Succinate (ER) [Toprol 100 mg PO DAILY 02/02/21 05/10/21 XL] OLANZapine [ZyPREXA] 20 mg PO DAILY 02/02/21 05/10/21 Venlafaxine HCl [Effexor XR] 300 mg PO DAILY 02/02/21 05/10/21 Vitamin E (Dl,Tocopheryl Acet) 1,000 unit PO DAILY 02/02/21 05/10/21 [Vitamin E] clonazePAM 1 mg PO BID PRN 02/02/21 05/10/21 lisinopriL [Zestril] 5 mg PO DAILY 02/02/21 05/10/21 metFORMIN HCL 1,000 mg PO BID 02/02/21 05/10/21 Atorvastatin [Lipitor] 80 mg PO DAILY 02/07/21 05/10/21 Ascorbic Acid [Vitamin C] 4,000 mg PO DAILY 04/04/21 05/10/21 Fluticasone Nasal [place] [Flonase 1 spray EA NOSTRIL DAILY 04/04/21 05/10/21 Nasal [place]] Warfarin [Coumadin] 10 mg PO DAILY 05/10/21 05/10/21 Previous Rx's Medication Instructions Recorded Insulin Glargine,Hum.rec.anlog 45 unit SQ DAILY #1 vial 04/11/21 [Basaglar Kwikpen U-100] Magnesium Oxide [Mag-Ox] 400 mg PO DAILY 5 Days #5 tablet 04/11/21 Warfarin [Coumadin] 10 mg PO DAILY #30 tab 04/11/21 Allergies Allergy/AdvReac Type Severity Reaction Status Date / Time codeine AdvReac Nausea & Verified 04/04/21 07:14 Vomiting Review of Systems ROS Statement: Those systems with pertinent positive or pertinent negative responses have been documented in the HPI. ROS Other: All systems not noted in ROS Statement are negative. Past Medical History Past Medical History: Diabetes Mellitus, GERD/Reflux, Hyperlipidemia, Hypertension, Pneumonia, Sleep Apnea/CPAP/BIPAP, Thyroid Disorder Additional Past Medical History / Comment(s): IDDM type II, neuropathy bilateral feet, rheumatic fever at age 11yrs/scar tissue on valve, aortic valve replacement (mechanical), pt states she had a blood clot around aortic valve prior to surgery, POLLO but does not tolerate Cpap, constipation, L ovarian cyst, hypothyroid. History of Any Multi-Drug Resistant Organisms: None Reported Date of last positivie culture/infection: 2013 Past Surgical History: Appendectomy, Cardiac Valve Replacement, Section, Joint Replacement, Orthopedic Surgery Additional Past Surgical History / Comment(s): BLANCA, aortic valve replacement (mechanical), L total knee arthroplasty, L foot bunionectomy, EGDs, colonoscopy. Past Anesthesia/Blood Transfusion Reactions: Previous Problems w/ Anesthesia Additional Past Anesthesia/Blood Transfusion Reaction / Comment(s): Stopped breathing when a EGD was done Past Psychological History: Anxiety, Bipolar Smoking Status: Never smoker Past Alcohol Use History: Occasional Past Drug Use History: None Reported - Past Family History Father Additional Family Medical History / Comment(s): Bipolar and ETOH abuse Mother Additional Family Medical History / Comment(s): ETOH abuse General Exam Limitations: no limitations Course Vital Signs 05/19/21 00:39 Temperature 98.3 F Pulse Rate 80 Respiratory 17 Rate Blood Pressure 119/76 O2 Sat by Pulse 97 Oximetry Medical Decision Making - Lab Data Lab Results 05/19/21 Range/Units 01:03 Urine Color Light Yellow Urine Appearance Clear (Clear) Urine pH 6.0 (5.0-8.0) Ur Specific [place] 1.004 (1.001-1.035) Urine Protein Negative (Negative) Urine Glucose (UA) 3+ H (Negative) Urine Ketones Negative (Negative) Urine Blood Negative (Negative) Urine Nitrite Negative (Negative) Urine Bilirubin Negative (Negative) Urine Urobilinogen <2.0 (<2.0) mg/dL Ur Leukocyte Esterase Negative (Negative) Disposition Clinical Impression: Left hip pain, Back pain Disposition: HOME SELF-CARE Condition: Good Instructions (If sedation given, give patient instructions): Hip Pain (ED), Acute Low Back Pain (ED) Is patient prescribed a controlled substance at d/c from ED?: No Referrals: None,Stated [Primary Care Provider] - 1-2 days
--- NOTE | 2021-05-19 01:54 | CT ---
EXAMINATION TYPE: CT abdomen pelvis wo con DATE OF EXAM: 05/19/2021 COMPARISON: 08/22/2019 HISTORY: pain CT DLP: 1311 mGycm Automated exposure control for dose reduction was used. Lung bases are clear. There is no pleural effusion. Heart size is fairly normal. There is no pericard ial effusion. There is low attenuation in the liver consistent with fatty infiltration. Liver is enla rged and measures 25 cm. Spleen is intact. There is distended stomach with fluid and air. Gallbladder is partly contracted. The bile ducts are not dilated. There is no evidence of pancreatic mass. There is no adrenal mass. Kidneys show normal size and contour. There is no hydronephrosis. Ureters a re not dilated. There is no retroperitoneal adenopathy. Bladder distends smoothly. There is no inguin al hernia. There is no free fluid in the pelvis. There is broad-based umbilical hernia that contains fat. The lumbar vertebra have normal alignment. The posterior elements are intact. The hip joints are inta ct. There is no hip dysplasia. There is no mesenteric edema. There is no ascites or free air. There is no bowel obstruction. Appendi x is not definitely seen. There is no sign of thickened appendix. IMPRESSION: I do not see a cause for left lower quadrant pain. No evidence of diverticulitis. Hepatomegaly. Fatty infiltration of the liver. Liver changes increased compared to old exam.
[2021-05-19 02:20] VITALS: BP 121/71; PULSE 76; TEMP 98.2
== END 2021-05-19 02:34 | disposition home or self-care (01) ==
LOC: EC 00:27
DX: M25.552 Pain in left hip (principal); M54.9 Dorsalgia, unspecified; K21.9 Gastro-esophageal reflux disease without esophagitis; E78.5 Hyperlipidemia, unspecified; I10 Essential (primary) hypertension; G47.33 Obstructive sleep apnea (adult) (pediatric); E07.9 Disorder of thyroid, unspecified; E11.40 Type 2 diabetes mellitus with diabetic neuropathy, unspecified; Z90.89 Acquired absence of other organs; Z99.81 Dependence on supplemental oxygen; Z79.82 Long term (current) use of aspirin
CPT/HCPCS: 74176; 81003; 99284

== ENCOUNTER → 2021-06-22 | Outpatient (CLI) | payer MEDICARE, OTHER ==
--- NOTE | 2021-06-22 08:04 | XR ---
EXAMINATION TYPE: XR Hip Complete LT DATE OF EXAM: 06/22/2021 COMPARISON: None HISTORY: Hip pain TECHNIQUE: 2 view left hip FINDINGS: Femoral head articulates with the acetabulum. Joint space appears preserved. No acute fract ure or dislocation is evident. IMPRESSION: 1. Normal three-view left
== END | disposition home or self-care (01) ==
LOC: RADXRMAIN 07:04
PROVIDERS: ATTEND Family Medicine
DX: M25.552 Pain in left hip (principal)
CPT/HCPCS: 73502

== ENCOUNTER 2021-07-12 20:57 | Emergency (ER) | payer MEDICARE, OTHER ==
[2021-07-12 21:15] VITALS: TEMP 98.7
[2021-07-12] MEDS ORDERED: MORPHINE SULFATE 4 MG/ML SYRINGE IV STA (21:52)
--- NOTE | 2021-07-12 21:56 | ED ---
Chest Pain HPI - General Chief Complaint: Chest Pain Stated Complaint: Breast Pain Time Seen by Provider: 07/12/21 21:24 Source: patient Mode of arrival: ambulatory Limitations: no limitations - History of Present Illness Initial Comments: This patient is 61-year-old woman presenting to be evaluated for pain to the right side of her chest and right breast. She states that it came on around 7:50 PM. She was at rest at the time. The patient states the pain lasts for a number of seconds, is severe, sharp. It seems to be better if she holds her breast. She has not noted worsening factors. She has not noted associated symptoms. MD Complaint: chest pain Onset/Timin -: hour(s) Onset: during rest Pain Location: right chest Pain Radiation: none Severity: severe Quality: sharp Consistency: intermittent Improves With: nothing Worsens With: nothing Treatments Prior to Arrival: none - Related Data Home Medications Medication Instructions Recorded Confirmed Ergocalciferol [Vitamin D2 (1250 1,250 mcg PO LEON 02/02/21 05/10/21 Mcg = 50558 Iu)] Fenofibrate Nanocrystallized 145 mg PO DAILY 02/02/21 05/10/21 [Fenofibrate] INSULIN ASPART (NovoLOG) [NovoLOG 15 units SQ AC-TID 02/02/21 05/10/21 (formulary)] Insulin Glargine,Hum.rec.anlog 40 unit SQ QAM 02/02/21 05/10/21 [Basaglar Kwikpen U-100] Levothyroxine Sodium [Synthroid] 112 mcg PO DAILY 02/02/21 05/10/21 Metoprolol Succinate (ER) [Toprol 100 mg PO DAILY 02/02/21 05/10/21 XL] OLANZapine [ZyPREXA] 20 mg PO DAILY 02/02/21 05/10/21 Venlafaxine HCl [Effexor XR] 300 mg PO DAILY 02/02/21 05/10/21 Vitamin E (Dl,Tocopheryl Acet) 1,000 unit PO DAILY 02/02/21 05/10/21 [Vitamin E] clonazePAM 1 mg PO BID PRN 02/02/21 05/10/21 lisinopriL [Zestril] 5 mg PO DAILY 02/02/21 05/10/21 metFORMIN HCL [Glucophage] 1,000 mg PO BID 02/02/21 05/10/21 Atorvastatin [Lipitor] 80 mg PO DAILY 02/07/21 05/10/21 Ascorbic Acid [Vitamin C] 4,000 mg PO DAILY 04/04/21 05/10/21 Fluticasone Nasal [place] [Flonase 1 spray EA NOSTRIL DAILY 04/04/21 05/10/21 Nasal [place]] Warfarin [Coumadin] 10 mg PO DAILY 05/10/21 05/10/21 Previous Rx's Medication Instructions Recorded Insulin Glargine,Hum.rec.anlog 45 unit SQ DAILY #1 vial 04/11/21 [Basaglar Kwikpen U-100] Magnesium Oxide [Mag-Ox] 400 mg PO DAILY 5 Days #5 tablet 04/11/21 Warfarin [Coumadin] 10 mg PO DAILY #30 tab 04/11/21 Allergies Allergy/AdvReac Type Severity Reaction Status Date / Time codeine AdvReac Nausea & Verified 07/12/21 21:15 Vomiting Review of Systems ROS Statement: Those systems with pertinent positive or pertinent negative responses have been documented in the HPI. ROS Other: All systems not noted in ROS Statement are negative. Constitutional: Denies: fever, chills Respiratory: Denies: cough, dyspnea Cardiovascular: Reports: as per HPI, chest pain. Denies: palpitations, orthopnea, edema, syncope Gastrointestinal: Denies: abdominal pain, nausea, vomiting, diarrhea Genitourinary: Denies: dysuria, hematuria Musculoskeletal: Denies: back pain Skin: Denies: rash Neurological: Denies: headache, weakness, numbness EKG Findings - EKG Results: EKG: interpreted by SHIN, sinus rhythm (Rate 99 bpm), normal axis, normal QRS, normal ST/T, no acute changes Past Medical History Past Medical History: Diabetes Mellitus, GERD/Reflux, Hyperlipidemia, Hypertension, Pneumonia, Sleep Apnea/CPAP/BIPAP, Thyroid Disorder Additional Past Medical History / Comment(s): IDDM type II, neuropathy bilateral feet, rheumatic fever at age 11yrs/scar tissue on valve, aortic valve re placement (mechanical), pt states she had a blood clot around aortic valve prior to surgery, POLLO but does not tolerate Cpap, constipation, L ovarian cyst, hypothyroid. History of Any Multi-Drug Resistant Organisms: None Reported Date of last positivie culture/infection: 2013 Past Surgical History: Appendectomy, Cardiac Valve Replacement, Section, Joint Replacement, Orthopedic Surgery Additional Past Surgical History / Comment(s): BLANCA, aortic valve replacement (mechanical), L total knee arthroplasty, L foot bunionectomy, EGDs, colonoscopy. Past Anesthesia/Blood Transfusion Reactions: Previous Problems w/ Anesthesia Additional Past Anesthesia/Blood Transfusion Reaction / Comment(s): Stopped breathing when a EGD was done Past Psychological History: Anxiety, Bipolar Smoking Status: Never smoker Past Alcohol Use History: Occasional Past Drug Use History: None Reported - Past Family History Father Additional Family Medical History / Comment(s): Bipolar and ETOH abuse Mother Additional Family Medical History / Comment(s): ETOH abuse General Exam Limitations: no limitations General appearance: alert, in no apparent distress Head exam: Present: atraumatic, normocephalic Eye exam: Present: normal appearance. Absent: scleral icterus, conjunctival injection ENT exam: Present: normal oropharynx Neck exam: Present: normal inspection Respiratory exam: Present: normal lung sounds bilaterally. Absent: respiratory distress, wheezes, rales, rhonchi, stridor Cardiovascular Exam: Present: regular rate, normal rhythm, clicks. Absent: systolic murmur, diastolic murmur, rubs, gallop GI/Abdominal exam: Present: soft. Absent: distended, tenderness, guarding, rebound, rigid, mass Extremities exam: Present: normal inspection, normal capillary refill. Absent: pedal edema, calf tenderness Back exam: Present: normal inspection Neurological exam: Present: alert Skin exam: Present: warm, dry, intact, normal color. Absent: rash Course Vital Signs 07/12/21 07/12/21 21:10 23:20 Temperature 98.7 F Pulse Rate 99 96 Respiratory 20 18 Rate Blood Pressure 130/79 135/60 O2 Sat by Pulse 97 98 Oximetry Disposition Clinical Impression: Chest pain Disposition: HOME SELF-CARE Condition: Good Instructions (If sedation given, give patient instructions): Chest Pain (ED) Additional Instructions: As we discussed, follow-up to have the mammography Referrals: Melissa Durham MD [Primary Care Provider] - 1-2 days
[2021-07-12 22:24] LABS: HCT 34.7 % (34.0-46.0); HGB 12.1 gm/dL (11.4-16.0); MCH 30.6 pg (25.0-35.0); MCV 87.4 fL (80.0-100.0); Mean Platelet Volume 6.8; Platelet Count 271 k/uL (150-450); RBC 3.98 m/uL (3.80-5.40); RDW 14.2 % (11.5-15.5); WBC 3.7 k/uL (3.8-10.6)
[2021-07-12 22:25] LABS: Albumin 4.2 g/dL (3.5-5.0); Calcium 9.5 mg/dL (8.4-10.2); Magnesium 1.2 mg/dL (1.6-2.3); Potassium 4.4 mmol/L (3.5-5.1); Total Bilirubin 0.2 mg/dL (0.2-1.3); Total Protein 6.4 g/dL (6.3-8.2)
[2021-07-12 22:29] LABS: INR 4.4 (<1.2); Partial Thromboplastin Time 44.1 sec (22.0-30.0); Prothrombin Time 41.9 sec (9.0-12.0)
[2021-07-12] MEDS ORDERED: ACETAMINOPHEN TAB 325 MG TAB PO STA (23:14)
[2021-07-12 23:21] VITALS: PULSE 96
[2021-07-12 23:46] LABS: Band Neutrophils % 3 %; Eosinophils # (M) 0.11 k/uL (0-0.7); Lymphocytes # (M) 1.26 k/uL (1.0-4.8); Monocytes # (M) 0.19 k/uL (0-1.0); Neutrophils % (M) 55 %; Nucleated Red Blood Cells 0 /100 WBC (0-0); Total Cells Counted 100
[2021-07-13 00:25] VITALS: BP 189/93; RESP 19
== END 2021-07-13 00:25 | disposition home or self-care (01) ==
LOC: EC 20:57
DX: R07.89 Other chest pain (principal); E11.9 Type 2 diabetes mellitus without complications; I10 Essential (primary) hypertension; K21.9 Gastro-esophageal reflux disease without esophagitis; E78.5 Hyperlipidemia, unspecified; E07.9 Disorder of thyroid, unspecified; F41.9 Anxiety disorder, unspecified; F31.9 Bipolar disorder, unspecified; Z90.49 Acquired absence of other specified parts of digestive tract; Z79.4 Long term (current) use of insulin; Z79.01 Long term (current) use of anticoagulants; Z88.1 Allergy status to other antibiotic agents; Z96.652 Presence of left artificial knee joint
CPT/HCPCS: 99285; 96374; 36415; 93005; 80053; 82150; 83690; 83735; 84484; 85025; 85610; 85730; J2270

== ENCOUNTER 2021-09-19 20:39 | Emergency (ER) | payer MEDICARE, OTHER ==
[2021-09-19 21:15] VITALS: BP 126/81; PULSE 71; RESP 19; TEMP 98
[2021-09-19 22:41] LABS: Amphetamine Screen,Urine Not Detected (NotDetected); Barbiturate Screen,Urine Not Detected (NotDetected); Benzodiazepines Screen,Urine Not Detected (NotDetected); Cocaine Screen,Urine Not Detected (NotDetected); Methadone Screen, Urine Not Detected (NotDetected); Opiate Screen,Urine Not Detected (NotDetected); Oxycodone Screen, Urine Not Detected (NotDetected); Phencyclidine Screen,Urine Not Detected (NotDetected); Tricyclic Antidepressant,Urine Not Detected (NotDetected); Urn Cannabinoid Scrn Not Detected (NotDetected)
--- NOTE | 2021-09-20 00:57 | ED ---
Psych HPI - General Chief Complaint: Psychiatric Symptoms Stated Complaint: mental health Time Seen by Provider: 09/19/21 21:24 Source: patient, RN notes reviewed Mode of arrival: EMS - History of Present Illness Initial Comments: Patient is a 61-year-old female that presents to emergency department stating that she is hearing voices. Patient notes that she does take medications for psychiatric illness. Patient denied any other issues or complaints. She was otherwise well-appearing. She denied chest pain shortness of breath headache nausea vomiting diarrhea constipation fever fatigue chills suicidal ideations or homicidal ideations. - Related Data Home Medications Medication Instructions Recorded Confirmed Ergocalciferol [Vitamin D2 (1250 1,250 mcg PO MO 02/02/21 09/19/21 Mcg = 30138 Iu)] Fenofibrate Nanocrystallized 145 mg PO DAILY 02/02/21 09/19/21 [Fenofibrate] INSULIN ASPART (NovoLOG) [NovoLOG 27 units SQ AC-TID 02/02/21 09/19/21 (formulary)] Levothyroxine Sodium [Synthroid] 112 mcg PO DAILY 02/02/21 09/19/21 Metoprolol Succinate (ER) [Toprol 100 mg PO DAILY 02/02/21 09/19/21 XL] OLANZapine [ZyPREXA] 20 mg PO HS 02/02/21 09/19/21 Venlafaxine HCl [Effexor XR] 300 mg PO DAILY 02/02/21 09/19/21 clonazePAM 1 mg PO BID PRN 02/02/21 09/19/21 lisinopriL [Zestril] 5 mg PO DAILY 02/02/21 09/19/21 metFORMIN HCL [Glucophage] 1,000 mg PO BID 02/02/21 09/19/21 Atorvastatin [Lipitor] 80 mg PO DAILY 02/07/21 09/19/21 Warfarin [Coumadin] 10 mg PO DAILY 05/10/21 09/19/21 Amoxicillin/Potassium Clav 1 tab PO BID 09/19/21 09/19/21 [Augmentin 875-125 Tablet] Empagliflozin [Jardiance] 10 mg PO DAILY 09/19/21 09/19/21 Previous Rx's Medication Instructions Recorded Insulin Glargine,Hum.rec.anlog 45 unit SQ DAILY #1 vial 04/11/21 [Basaglar Kwikpen U-100] Magnesium Oxide [Mag-Ox] 400 mg PO DAILY 5 Days #5 tablet 04/11/21 Allergies Allergy/AdvReac Type Severity Reaction Status Date / Time codeine AdvReac Nausea & Verified 09/19/21 22:23 Vomiting Review of Systems ROS Statement: Those systems with pertinent positive or pertinent negative responses have been documented in the HPI. ROS Other: All systems not noted in ROS Statement are negative. Past Medical History Past Medical History: Diabetes Mellitus, GERD/Reflux, Hyperlipidemia, Hypertension, Pneumonia, Sleep Apnea/CPAP/BIPAP, Thyroid Disorder Additional Past Medical History / Comment(s): IDDM type II, neuropathy bilateral feet, rheumatic fever at age 11yrs/scar tissue on valve, aortic valve replacement (mechanical), pt states she had a blood clot around aortic valve prior to surgery, POLLO but does not tolerate Cpap, constipation, L ovarian cyst, hypothyroid. History of Any Multi-Drug Resistant Organisms: None Reported Date of last positivie culture/infection: 2013 Past Surgical History: Appendectomy, Cardiac Valve Replacement, Section, Joint Replacement, Orthopedic Surgery Additional Past Surgical History / Comment(s): BLANCA, aortic valve replacement (mechanical), L total knee arthroplasty, L foot bunionectomy, EGDs, colonoscopy. Past Anesthesia/Blood Transfusion Reactions: Previous Problems w/ Anesthesia Additional Past Anesthesia/Blood Transfusion Reaction / Comment(s): Stopped breathing when a EGD was done Past Psychological History: Anxiety, Bipolar Smoking Status: Never smoker Past Alcohol Use History: Occasional Past Drug Use History: None Reported - Past Family History Father Additional Family Medical History / Comment(s): Bipolar and ETOH abuse Mother Additional Family Medical History / Comment(s): ETOH abuse General Exam Limitations: no limitations General appearance: alert, in no apparent distress, obese Head exam: Present: atraumatic, normocephalic, normal inspection Eye exam: Present: normal appearance, PERRL, EOMI. Absent: scleral icterus, conjunctival injection, periorbital swelling ENT exam: Present: normal exam, mucous membranes moist Neck exam: Present: normal inspection Respiratory exam: Present: normal lung sounds bilaterally. Absent: respiratory distress, wheezes, rales, rhonchi, stridor Cardiovascular Exam: Present: regular rate, normal rhythm, normal heart sounds. Absent: systolic murmur, diastolic murmur, rubs, gallop, clicks GI/Abdominal exam: Present: soft, normal bowel sounds. Absent: distended, tenderness, guarding, rebound, rigid Extremities exam: Present: normal inspection, full ROM, normal capillary refill. Absent: tenderness, pedal edema, joint swelling, calf tenderness Neurological exam: Present: alert, oriented X3 Psychiatric exam: Present: normal affect, normal mood Skin exam: Present: warm, dry, intact, normal color. Absent: rash Course Vital Signs 09/19/21 21:11 Temperature 98.0 F Pulse Rate 71 Respiratory 19 Rate Blood Pressure 126/81 O2 Sat by Pulse 99 Oximetry Medical Decision Making - Medical Decision Making 61-year-old female with auditory hallucinations. Urine drug screen, alcohol breath test ordered. EPS notified evaluate. EPS notes they will give patient outpatient resources and safety plan and can discharge home. Case discussed with Dr. Tolbert, patient discharge home. - Lab Data Lab Results 09/19/21 Range/Units 21:49 Urine Opiates Screen Not Detected (NotDetected) Ur Oxycodone Screen Not Detected (NotDetected) Urine Methadone Screen Not Detected (NotDetected) Ur Propoxyphene Screen Not Detected (NotDetected) Ur Barbiturates Screen Not Detected (NotDetected) U Tricyclic Antidepress Not Detected (NotDetected) Ur Phencyclidine Scrn Not Detected (NotDetected) Ur Amphetamines Screen Not Detected (NotDetected) U Methamphetamines Scrn Not Detected (NotDetected) U Benzodiazepines Scrn Not Detected (NotDetected) Urine Cocaine Screen Not Detected (NotDetected) U Marijuana (THC) Screen Not Detected (NotDetected) Disposition Clinical Impression: Auditory hallucinations, Bipolar disorder with psychotic features Disposition: HOME SELF-CARE Condition: Stable Instructions (If sedation given, give patient instructions): Hallucinations (ED) Additional Instructions: Please return to the Emergency Department if symptoms worsen or any other concerns. Is patient prescribed a controlled substance at d/c from ED?: No Referrals: Hitesh Romero III, MD [Primary Care Provider] - 1-2 days Time of Disposition: 00:56
== END 2021-09-20 01:07 | disposition home or self-care (01) ==
LOC: EC 20:39
DX: F31.9 Bipolar disorder, unspecified (principal); E11.40 Type 2 diabetes mellitus with diabetic neuropathy, unspecified; I10 Essential (primary) hypertension; E78.5 Hyperlipidemia, unspecified; K21.9 Gastro-esophageal reflux disease without esophagitis; F41.9 Anxiety disorder, unspecified; Z79.4 Long term (current) use of insulin; Z79.01 Long term (current) use of anticoagulants; Z79.899 Other long term (current) drug therapy; Z79.890 Hormone replacement therapy
CPT/HCPCS: 80306; 82075; 99285

== ENCOUNTER → 2021-10-10 | Outpatient (CLI) | payer MEDICARE, OTHER ==
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
--- NOTE | 2021-10-11 08:02 | XR ---
EXAMINATION TYPE: XR chest 2V DATE OF EXAM: 10/10/2021 COMPARISON: Chest x-ray and CTA chest April 04, 2021. HISTORY: Recent injury with pain. TECHNIQUE: Frontal and lateral views of the chest are obtained. FINDINGS: Overlying sternal wire superior one which is broken are redemonstrated. Persistent postsurg ical change aortic valve. There is no new suspicious focal air space opacity, pleural effusion, or pn eumothorax seen. The cardiac silhouette size is stable and mildly enlarged. Multilevel spurring and disc space narrowing in the thoracic spine. IMPRESSION: Mild cardiomegaly without acute pulmonary process.
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
--- NOTE | 2021-10-11 08:06 | XR ---
EXAMINATION TYPE: XR thoracic spine complete DATE OF EXAM: 10/10/2021 CLINICAL HISTORY: Recent injury with mid back pain. TECHNIQUE: Frontal, lateral, and swimmer's view of thoracic spine are obtained. COMPARISON: CTA chest April 04, 2021. FINDINGS: Thoracic spine show stable and satisfactory alignment without evidence of acute fracture or dislocation. Vertebral body heights are stable and satisfactory. There is jfik-yv-ibkryoky multilev el disc space narrowing with moderate to severe multilevel anterior and lateral spurring in the mid t o lower thoracic spine. Visualized ribs are intact bilaterally. Overlying sternal wires, superior a nd inferior one which are broken are redemonstrated. Artificial aortic valve again seen. IMPRESSION: No acute fracture or dislocation is seen in the thoracic spine.
--- NOTE | 2021-10-11 08:08 | XR ---
EXAMINATION TYPE: XR ankle complete bilateral DATE OF EXAM: 10/10/2021 CLINICAL HISTORY: Recent injury with pain TECHNIQUE: Frontal, lateral and oblique images of the bilateral ankles are obtained. COMPARISON: None. FINDINGS: There is no acute fracture/dislocation evident in either ankle. The ankle mortise appears within normal limits bilaterally. Mild diffuse subcutaneous edema bilaterally. Mild soft tissue medi al malleolus bilaterally. Moderate size inferior calcaneal spurs are present bilaterally. Right ankle shows some tiny fragmentation at the origin of the plantar fascia. Left foot shows a fixating screw through the first metatarsal. IMPRESSION: There is no acute fracture or dislocation in either ankle.
== END | disposition home or self-care (01) ==
LOC: RADCTMAIN 14:50
PROVIDERS: ATTEND Family Medicine
DX: S99.911A Unspecified injury of right ankle, initial encounter (principal); S99.912A Unspecified injury of left ankle, initial encounter; S29.9XXA Unspecified injury of thorax, initial encounter; S49.91XA Unspecified injury of right shoulder and upper arm, initial encounter; R51.9 Headache, unspecified; S09.90XA Unspecified injury of head, initial encounter; I51.7 Cardiomegaly; Y93.55 Activity, bike riding
CPT/HCPCS: 70450; 71046; 72072

== ENCOUNTER → 2022-01-03 | Outpatient (CLI) | payer MEDICARE, OTHER ==
--- NOTE | 2022-01-03 15:48 | XR ---
EXAMINATION TYPE: XR chest 2V DATE OF EXAM: 01/03/2022 COMPARISON: 10/10/2021 HISTORY: 61-year-old female Z1 8.10 TECHNIQUE: Frontal and lateral views FINDINGS: Median sternotomy wires are present. Heart upper limits of normal in size. Mild interstitial prominen ce is chronic appearance. Strandy atelectasis in the lower lungs. Mild to moderate degenerative disc disease mid thoracic spine. Median sternotomy wires. Prosthetic aortic valve. No consolidation or ple ural effusion. No retained epicardial pacer leads. IMPRESSION: 1. No retained epicardial pacer leads. 2. Median sternotomy wires. Prosthetic cardiac valve which can be cleared by assessing make and model . 3. Some strandy basilar atelectasis.
== END | disposition home or self-care (01) ==
LOC: RADXRMAIN 15:10
PROVIDERS: ATTEND Physical Medicine & Rehabilitation
DX: J98.11 Atelectasis (principal)
CPT/HCPCS: 71046

== ENCOUNTER → 2022-01-16 | Outpatient (CLI) | payer MEDICARE, OTHER ==
[2022-01-16 15:41] VITALS: BP 189/110; PULSE 91; RESP 16; TEMP 98.7; BMI 39.4
--- NOTE | 2022-01-16 16:27 | P.BASOAP ---
Subjective Progress Note Date: 01/16/22 Principal diagnosis: morbid obesity Patient returns for evaluation. Patient was previously seen for elective sleeve gastrectomy. Patient decided to hold off on surgery because of some nonhealth related issues. Since her last visit patient states she is switching her primary care physician. She was hospitalized in March of last year for chest pain and had further cardiac testing. Our last cardiac clearance was from December of last year. In August patient was seen in the emergency department for auditory hallucinations. Our psychiatric clearance was prior to that as well. Patient says her blood pressure is elevated lately because she stopped taking some of her medications. Patient states she remains interested in sleeve gastrectomy. Objective - Vital Signs Vital signs: Vital Signs Temp 98.7 F 01/16/22 15:38 Pulse 91 01/16/22 15:38 Resp 16 01/16/22 15:38 BP 189/110 01/16/22 15:38 Pulse Ox Intake & Output 01/15/22 01/16/22 01/16/22 18:59 06:59 18:59 Weight 102.512 kg - Exam Abdomen: Soft, nontender, nondistended Assessment/Plan (1) Obesity (BMI 30-39.9) Narrative/Plan: 61-year-old female with severe obesity and comorbidities. Surgical options again reviewed. Patient remains interested in sleeve gastrectomy. Patient will need repeat clearance from cardiology, psychiatry, and new primary care physician documentation supporting patient's decision to proceed with sleeve gastrectomy. Despite that the patient is higher than average risk for perioperative complications based on her numerous health issues and psychiatric complaints. Once all of the clearance letter is retained I'll have the patient follow-up with us in the office and we'll rer-review the surgical consent form in detail. Plan: Date: 01/16/22 Initial Weight: 102.058 kg Initial BMI: 39.2 Current Weight: 102.512 kg Current BMI: 39.4 Type of Surgery: Total Volume in Band: Previous Volume: Volume Removed: Volume Added: Band Size:
== END ==
LOC: BARWHC3 15:13
PROVIDERS: ATTEND Surgery
DX: E66.01 Morbid (severe) obesity due to excess calories (principal); Z68.39 Body mass index [BMI] 39.0-39.9, adult; Z88.5 Allergy status to narcotic agent
CPT/HCPCS: 99211

== ENCOUNTER 2022-03-02 16:47 | Inpatient (IN) | payer MEDICARE, OTHER ==
[2022-03-02] MEDS ORDERED: ACETAMINOPHEN TAB 500 MG TAB PO STA (17:05)
[2022-03-02] MEDS ORDERED: SODIUM CHLORIDE 0.9% 1,500 ML IV ONE (17:11)
[2022-03-02 18:05] LABS: HCT 33.6 % (34.0-46.0); HGB 12.1 gm/dL (11.4-16.0); MCH 30.5 pg (25.0-35.0); MCHC 35.9 g/dL (31.0-37.0); MCV 84.9 fL (80.0-100.0); Mean Platelet Volume 7.2; Platelet Count 204 k/uL (150-450); RBC 3.96 m/uL (3.80-5.40); RDW 13.5 % (11.5-15.5); WBC 5.4 k/uL (3.8-10.6)
[2022-03-02 18:10] LABS: Albumin 4.3 g/dL (3.5-5.0); Calcium 8.6 mg/dL (8.4-10.2); Total Bilirubin 1.2 mg/dL (0.2-1.3); Total Protein 7.1 g/dL (6.3-8.2)
[2022-03-02] MEDS ORDERED: ONDANSETRON 4 MG/2 ML VIAL IVP STA (18:16)
[2022-03-02 18:20] LABS: Potassium 4.3 mmol/L (3.5-5.1)
[2022-03-02 18:26] LABS: INR 2.2 (<1.2); Partial Thromboplastin Time 42.5 sec (22.0-30.0); Prothrombin Time 21.7 sec (9.0-12.0)
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
[2022-03-02 19:01] LABS: Band Neutrophils % 3 %; Basophils # (M) 0.05 k/uL (0-0.2); Eosinophils # (M) 0.05 k/uL (0-0.7); Lymphocytes # (M) 0.49 k/uL (1.0-4.8); Monocytes # (M) 0.38 k/uL (0-1.0); Neutrophils % (M) 79 %; Nucleated Red Blood Cells 0 /100 WBC (0-0); Total Cells Counted 100; Toxic Vacuolation Present
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
[2022-03-02] MEDS ORDERED: cefTRIAXone IN SWFI 1,000 MG/10 ML SYRINGE IVP STA (19:18)
[2022-03-02] MEDS ORDERED: AZITHROMYCIN 500 MG in SODIUM CHLORIDE 0.9% 250 ML IVPB STA (19:19)
[2022-03-02] MEDS ORDERED: IBUPROFEN 600 MG TAB PO STA (20:03)
--- NOTE | 2022-03-02 20:03 | ED ---
Altered Mental Status HPI - General Chief Complaint: Altered Mental Status Stated Complaint: Mental Health Source: patient Mode of arrival: EMS Limitations: no limitations - History of Present Illness Initial Comments: 61-year-old female past medical history of diabetes, hypertension, hyperlipidemia presents to emergency department with altered mental status. EMS reported that the patient needed a psychiatric evaluation as she was confused. Her son called EMS. Patient arrives and does have a significantly elevated temperature. Reports that she feels nauseated and vomiting however denies having any abdominal pain. No chest pain or shortness of breath. No cough. Denies any sick contacts with similar symptoms. Denies any rashes or bedsores. Does have a history of valve replacements. She denies any headaches, neck pain or visual changes. No changes in her urination or bowel movements. Patient felt warm at home however did not have a thermometer. She reports she did take extra strength Tylenol at home earlier today. 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 - Related Data Home Medications Medication Instructions Recorded Confirmed Ergocalciferol [Vitamin D2 (1250 1,250 mcg PO MO 02/02/21 03/02/22 Mcg = 72764 Iu)] Metoprolol Succinate (ER) [Toprol 100 mg PO DAILY 02/02/21 03/02/22 XL] OLANZapine [ZyPREXA] 20 mg PO HS 02/02/21 03/02/22 Venlafaxine HCl [Effexor XR] 300 mg PO DAILY 02/02/21 03/02/22 clonazePAM 1 mg PO BID PRN 02/02/21 03/02/22 lisinopriL [Zestril] 5 mg PO DAILY 02/02/21 03/02/22 Atorvastatin [Lipitor] 80 mg PO DAILY 02/07/21 03/02/22 Empagliflozin [Jardiance] 10 mg PO DAILY 09/19/21 03/02/22 traMADol HCL 50 mg PO TID 01/17/22 03/02/22 Famotidine [Pepcid] 20 mg PO DAILY 03/02/22 03/02/22 Insulin Aspart [NovoLOG Flexpen] 25 units SQ AC-TID 03/02/22 03/02/22 Insulin Glargine,Hum.rec.anlog 35 unit SQ DAILY 03/02/22 03/02/22 [Basaglar Kwikpen U-100] Insulin Glargine,Hum.rec.anlog 45 unit SQ HS 03/02/22 03/02/22 [Basaglar Kwikpen U-100] Levothyroxine Sodium [Synthroid] 125 mcg PO DAILY 03/02/22 03/02/22 Allergies Allergy/AdvReac Type Severity Reaction Status Date / Time codeine AdvReac Nausea & Verified 03/02/22 18:35 Vomiting Review of Systems ROS Statement: Those systems with pertinent positive or pertinent negative responses have been documented in the HPI. ROS Other: All systems not noted in ROS Statement are negative. Past Medical History Past Medical History: Diabetes Mellitus, GERD/Reflux, Hyperlipidemia, Hypertension, Pneumonia, Sleep Apnea/CPAP/BIPAP, Thyroid Disorder Additional Past Medical History / Comment(s): IDDM type II, neuropathy bilateral feet, rheumatic fever at age 11yrs/scar tissue on valve, aortic valve replacement (mechanical), pt states she had a blood clot around aortic valve prior to surgery, POLLO but does not tolerate Cpap, constipation, L ovarian cyst, hypothyroid. History of Any Multi-Drug Resistant Organisms: None Reported Date of last positivie culture/infection: 2013 Past Surgical History: Appendectomy, Cardiac Valve Replacement, S ection, Joint Replacement, Orthopedic Surgery Additional Past Surgical History / Comment(s): BLANCA, aortic valve replacement (mechanical), L total knee arthroplasty, L foot bunionectomy, EGDs, colonoscopy. Past Anesthesia/Blood Transfusion Reactions: Previous Problems w/ Anesthesia Additional Past Anesthesia/Blood Transfusion Reaction / Comment(s): Stopped breathing when a EGD was done Past Psychological History: Anxiety, Bipolar Smoking Status: Never smoker Past Alcohol Use History: Occasional Past Drug Use History: None Reported - Past Family History Father Additional Family Medical History / Comment(s): Bipolar and ETOH abuse Mother Additional Family Medical History / Comment(s): ETOH abuse General Exam Limitations: no limitations Course Vital Signs 03/02/22 03/02/22 03/02/22 16:56 18:18 19:46 Temperature 103.5 F H 105.7 F H 103 F H Pulse Rate 108 H 116 H 103 H Respiratory 16 18 20 Rate Blood Pressure 126/74 128/78 120/74 O2 Sat by Pulse 97 94 L 96 Oximetry 03/02/22 20:41 Temperature 102.7 F H Pulse Rate Respiratory Rate Blood Pressure O2 Sat by Pulse Oximetry Medical Decision Making - Medical Decision Making Upon arrival patient is placed into room 18. A thorough history and physical exam was performed. Patient does arrive and has 103.5 temp. She is given a gram of Tylenol. IV access established laboratory studies are conducted. Patient given sepsis bolus of fluids. Labs are reviewed. INR 2.2. Sodium 127. Influenza A, B, RSV ankle are all negative. Chest x-rays performed which demonstrates possible atypical pneumonia. CT of the brain is performed due to family reporting confusion which demonstrates no acute process. CT abdomen and pelvis demonstrates a right upper thigh enlarged lymph node. Mild bladder wall thickening which were corrected represent cystitis. He is unable to provide a urine and therefore I empirically cover her with a dose of Rocephin and azithromycin for pneumonia as her possible source of fever. Patient aware that urinalysis is needed. I did evaluate the patient's entire right lower extremity and it does not demonstrate any signs of infection. Recommended admission for antibiotics and infectious disease consult which the patient did agree to. Spoke with Dr. Romo who agreed to admit the patient. Patient taken to the floor in stable condition - Lab Data Result diagrams: 03/02/22 17:53 03/02/22 17:38 Lab Results 03/02/22 03/02/22 03/02/22 Range/Units 17:38 17:53 17:53 WBC 5.4 (3.8-10.6) k/uL RBC 3.96 (3.80-5.40) m/uL Hgb 12.1 (11.4-16.0) gm/dL Hct 33.6 L (34.0-46.0) % MCV 84.9 (80.0-100.0) fL MCH 30.5 (25.0-35.0) pg MCHC 35.9 (31.0-37.0) g/dL RDW 13.5 (11.5-15.5) % Plt Count 204 (150-450) k/uL MPV 7.2 Neutrophils % (Manual) 79 % Band Neuts % (Manual) 3 % Lymphocytes % (Manual) 9 % Monocytes % (Manual) 7 % Eosinophils % (Manual) 1 % Basophils % (Manual) 1 % Neutrophils # (Manual) 4.40 (1.3-7.7) k/uL Lymphocytes # (Manual) 0.49 L (1.0-4.8) k/uL Monocytes # (Manual) 0.38 (0-1.0) k/uL Eosinophils # (Manual) 0.05 (0-0.7) k/uL Basophils # (Manual) 0.05 (0-0.2) k/uL Nucleated RBCs 0 (0-0) /100 WBC Manual Slide Review Performed Toxic Vacuolation Present PT 21.7 H (9.0-12.0) sec INR 2.2 H (<1.2) APTT 42.5 H (22.0-30.0) sec Sodium 127 L (137-145) mmol/L Potassium 4.3 (3.5-5.1) mmol/L Chloride 95 L (98-107) mmol/L Carbon Dioxide 24 (22-30) mmol/L Anion Gap 8 mmol/L BUN 17 (7-17) mg/dL Creatinine 1.12 H (0.52-1.04) mg/dL Est GFR (CKD-EPI)AfAm 62 (>60 ml/min/1.73 sqM) Est GFR (CKD-EPI)NonAf 54 (>60 ml/min/1.73 sqM) Glucose 197 H (74-99) mg/dL Plasma Lactic Acid Arturo (0.7-2.0) mmol/L Calcium 8.6 (8.4-10.2) mg/dL Total Bilirubin 1.2 (0.2-1.3) mg/dL AST 72 H (14-36) U/L ALT 36 H (4-34) U/L Alkaline Phosphatase 71 (38-126) U/L Total Protein 7.1 (6.3-8.2) g/dL Albumin 4.3 (3.5-5.0) g/dL Influenza Type A (PCR) (Not Detectd) Influenza Type B (PCR) (Not Detectd) RSV (PCR) (Not Detectd) SARS-CoV-2 (PCR) (Not Detectd) 03/02/22 03/02/22 Range/Units 17:53 18:27 WBC (3.8-10.6) k/uL RBC (3.80-5.40) m/uL Hgb (11.4-16.0) gm/dL Hct (34.0-46.0) % MCV (80.0-100.0) fL MCH (25.0-35.0) pg MCHC (31.0-37.0) g/dL RDW (11.5-15.5) % Plt Count (150-450) k/uL MPV Neutrophils % (Manual) % Band Neuts % (Manual) % Lymphocytes % (Manual) % Monocytes % (Manual) % Eosinophils % (Manual) % Basophils % (Manual) % Neutrophils # (Manual) (1.3-7.7) k/uL Lymphocytes # (Manual) (1.0-4.8) k/uL Monocytes # (Manual) (0-1.0) k/uL Eosinophils # (Manual) (0-0.7) k/uL Basophils # (Manual) (0-0.2) k/uL Nucleated RBCs (0-0) /100 WBC Manual Slide Review Toxic Vacuolation PT (9.0-12.0) sec INR (<1.2) APTT (22.0-30.0) sec Sodium (137-145) mmol/L Potassium (3.5-5.1) mmol/L Chloride (98-107) mmol/L Carbon Dioxide (22-30) mmol/L Anion Gap mmol/L BUN (7-17) mg/dL Creatinine (0.52-1.04) mg/dL Est GFR (CKD-EPI)AfAm (>60 ml/min/1.73 sqM) Est GFR (CKD-EPI)NonAf (>60 ml/min/1.73 sqM) Glucose (74-99) mg/dL Plasma Lactic Acid Arturo 1.0 (0.7-2.0) mmol/L Calcium (8.4-10.2) mg/dL Total Bilirubin (0.2-1.3) mg/dL AST (14-36) U/L ALT (4-34) U/L Alkaline Phosphatase (38-126) U/L Total Protein (6.3-8.2) g/dL Albumin (3.5-5.0) g/dL Influenza Type A (PCR) Not Detected (Not Detectd) Influenza Type B (PCR) Not Detected (Not Detectd) RSV (PCR) Not Detected (Not Detectd) SARS-CoV-2 (PCR) Not Detected (Not Detectd) - EKG Data EKG Comments: EKG demonstrates a sinus tachycardia with a rate of 113.VT interval 156. QRS 81. QTC of 366. Q wave in lead 3. No acute ST segment elevations or depressions Disposition Clinical Impression: Nausea and vomiting, Pyrexia, CAP (community acquired pneumonia), Hyponatremia Disposition: ADMITTED IP TO THIS HOSP Condition: Stable Is patient prescribed a controlled substance at d/c from ED?: No Decision to Admit Reason: Admit from EC Decision Date: 03/02/22 Decision Time: 20:05
[2022-03-02] MEDS ORDERED: ONDANSETRON 4 MG/2 ML VIAL IVP PRN (20:06)
[2022-03-02] MEDS ORDERED: NALOXONE 0.4 MG/ML 1 ML VIAL IV PRN (20:06)
[2022-03-02 23:47] LABS: Glucose,Whole Blood 183 mg/dL (75-99)
[2022-03-03] MEDS: INSULIN DETEMIR (LEVEMIR) 100 UNIT/ML SYR SQ SCH ×3 (00:51→22:15)
[2022-03-03] MEDS: traMADol 50 MG TAB PO SCH ×4 (00:55→22:15)
[2022-03-03] MEDS: OLANZapine 10 MG TAB PO SCH ×2 (00:56→22:16)
[2022-03-03] MEDS: SODIUM CHLORIDE 0.9% 1,000 ML IV SCH ×4 (00:56→19:40)
[2022-03-03] MEDS: IBUPROFEN 400 MG TAB PO PRN ×4 (00:56→19:41)
[2022-03-03] MEDS: ACETAMINOPHEN TAB 325 MG TAB PO PRN ×3 (05:15→19:40)
[2022-03-03] MEDS: clonazePAM 1 MG TAB PO PRN ×2 (05:16→17:12)
[2022-03-03] MEDS: LEVOTHYROXINE 125 MCG TAB PO SCH (06:19)
[2022-03-03 07:15] LABS: Glucose,Whole Blood 150 mg/dL (75-99)
[2022-03-03] MEDS: INSULIN ASPART (NovoLOG) 100 UNIT/ML VIAL SQ SCH ×3 (07:40→16:57)
[2022-03-03] MEDS ORDERED: PIPERACILLIN-TAZOBACTAM 3.375 GM in SODIUM CHLORIDE 0.9% 100 ML IVPB SCH (08:00)
[2022-03-03 08:51] LABS: HCT 29.6 % (37.2-46.3); MCH 28.7 pg (27.0-32.0); MCHC 33.8 g/dL (32.0-37.0); MCV 84.8 fL (80.0-97.0); Mean Platelet Volume 9.2 fL (9.5-12.2); NRBC Per 100 WBC 0 /100 WBCS (0.0-0.0); Platelet Count 162 X 10*3/uL (140-440); RBC 3.49 X 10*6/uL (4.10-5.20); WBC 4.51 X 10*3/uL (4.50-10.00)
[2022-03-03 08:56] LABS: African American GFR (CKD) 62.3 (60.0-200.0); Anion Gap 13.2 mmol/L (10.00-18.00); BUN/Creat Ratio 13.21 Ratio (12.00-20.00); Blood Urea Nitrogen 14.8 mg/dL (9.0-27.0); Calcium 8.1 mg/dL (8.7-10.3); Carbon Dioxide 15.8 mmol/L (20.0-27.5); Non-African American GFR(CKD) 53.7 (60.0-200.0); Potassium 3.7 mmol/L (3.5-5.5)
[2022-03-03] MEDS: ATORVASTATIN 80 MG TAB PO SCH (08:58)
[2022-03-03] MEDS: lisinopriL 5 MG TAB PO SCH (08:58)
[2022-03-03] MEDS: METOPROLOL SUCCINATE (ER) 100 MG TAB.ER.24H PO SCH (08:58)
[2022-03-03] MEDS: VENLAFAXINE HCL ER 150 MG CAP PO SCH (08:58)
[2022-03-03] MEDS: FAMOTIDINE 20 MG TAB PO SCH (08:58)
[2022-03-03] MEDS ORDERED: cefTRIAXone IN SWFI 1,000 MG/10 ML SYRINGE IVP SCH (09:00)
[2022-03-03 09:27] LABS: INR 1.49 (0.90-1.11); Prothrombin Time 16.5 sec (9.9-11.9)
[2022-03-03 09:42] LABS: Basophils # (A) 0.03 X 10*3/uL (0.00-0.10); Basophils % (A) 0.7 %; Eosinophils # (A) 0 X 10*3/uL (0.04-0.35); Eosinophils % (A) 0 %; Immature Grans, Automated 0.9 %; Lymphocytes # (A) 0.19 X 10*3/uL (0.90-5.00); Lymphocytes % (A) 4.2 %; Monocytes # (A) 0.34 X 10*3/uL (0.20-1.00); Monocytes % (A) 7.5 %; Neutrophils # (A) 3.91 X 10*3/uL (1.80-7.70); Neutrophils % (A) 86.7 %; RBC Morphology NORMAL
[2022-03-03 11:33] LABS: Glucose,Whole Blood 120 mg/dL (75-99)
[2022-03-03] MEDS ORDERED: LEVOFLOXACIN 500MG-D5W PMX 500 MG in DEXTROSE/WATER 1 100ML.BAG IVPB SCH (12:00)
[2022-03-03] MEDS ORDERED: VANCOMYCIN IV PER PHARMACY 1 EACH MISC MISCELLANE PRN ×2 (13:09→14:44)
[2022-03-03] MEDS ORDERED: VANCOMYCIN 1,750 MG in SODIUM CHLORIDE 0.9% 500 ML 500 ML IVPB SCH (14:00)
--- NOTE | 2022-03-03 14:43 | P.HPIM ---
History of Present Illness H&P Date: 03/03/22 Linda Isaac, is a 61-year-old female who presented to [facility] emergency room with a chief complaint of fever or chills and mental status changes. She was evaluated in the emergency room vital examination on presentation revealed a temperature of 105.7 pulse 116 respiration 18 and blood pressure 128/78 pulse ox 94% on room air Laboratory data revealed a white blood count of 5.4 hemoglobin 12.1 platelet count 204 sodium 127 potassium 4.3 chloride 95 CO2 24 BUN 17 creatinine 1.12 AST elevated at 72 ALT 36 influenza A and B titers and COVID-19 PCR were negative, urine analysis was not done, INR was 2.2 Testing in the emergency room revealed chest x-ray done in the emergency room revealed scattered opacities which may represent atypical pneumonia, computed tomography scan of the brain done in the emergency room without contrast revealed no acute intracranial process, computed tomography scan of the abdomen and pelvis done in the emergency room revealed a right thigh enlarged lymph node, bladder wall thickening, and hepatic steatosis. Patient was admitted to medical floor for further evaluation and treatment. She was started on IV antibiotic Rocephin and Zithromax in the emergency room for presumed pneumonia, shortly after admission patient had positive blood culture for gram-negative bacilli and IV antibiotics were changed to Zosyn and Levaquin, infectious disease consultation was requested. Past medical history is significant for history of aortic valve replacement with mechanical valve patient is maintained on Coumadin, history of morbid obesity, history of obstructive sleep apnea, history of hypothyroidism, history of bipolar disorder with schizoaffective disorder, history of hypertension, history of hyperlipidemia, and history of diabetes mellitus. On review of systems at this time patient is alert and oriented 3 in no apparent distress she is complaining of episodes on and off of shaking chills, otherwise she denies any complaints at this time there is no headache or dizziness no chest pain no shortness of breath no cough no nausea or vomiting no abdominal pain no diarrhea and no urinary symptoms. Past Medical History Past Medical History: Diabetes Mellitus, GERD/Reflux, Hyperlipidemia, Hyperte nsion, Pneumonia, Sleep Apnea/CPAP/BIPAP, Thyroid Disorder Additional Past Medical History / Comment(s): IDDM type II, neuropathy bilateral feet, rheumatic fever at age 11yrs/scar tissue on valve, aortic valve replacement (mechanical), pt states she had a blood clot around aortic valve prior to surgery, POLLO but does not tolerate Cpap, constipation, L ovarian cyst, hypothyro id. History of Any Multi-Drug Resistant Organisms: None Reported Date of last positivie culture/infection: 2013 Past Surgical History: Appendectomy, Cardiac Valve Replacement, Section, Joint Replacement, Orthopedic Surgery Additional Past Surgical History / Comment(s): BLANCA, aortic valve replacement (mechanical), L total knee arthroplasty, L foot bunionectomy, EGDs, colonoscopy. Past Anesthesia/Blood Transfusion Reactions: Previous Problems w/ Anesthesia Additional Past Anesthesia/Blood Transfusion Reaction / Comment(s): Stopped breathing when a EGD was done Past Psychological History: Anxiety, Bipolar Additional Psychological History / Comment(s): Pt resides with her 2 children ages 15 and 19 yrs. She uses a cane to ambulate and occasionally a walker. 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 Smoking Status: Never smoker Past Alcohol Use History: Occasional Additional Past Alcohol Use History / Comment(s): Pt states she occasionally with have a couple beers on the weekend. She states she previously was a heavy beer drinker. Past Drug Use History: None Reported - Past Family History Father Additional Family Medical History / Comment(s): Bipolar and ETOH abuse Mother Additional Family Medical History / Comment(s): ETOH abuse Medications and Allergies Home Medications Medication Instructions Recorded Confirmed Type Ergocalciferol [Vitamin D2 (1250 1,250 mcg PO MO 02/02/21 03/02/22 History Mcg = 41035 Iu)] Metoprolol Succinate (ER) [Toprol 100 mg PO DAILY 02/02/21 03/02/22 History XL] OLANZapine [ZyPREXA] 20 mg PO HS 02/02/21 03/02/22 History Venlafaxine HCl [Effexor XR] 300 mg PO DAILY 02/02/21 03/02/22 History clonazePAM 1 mg PO BID PRN 02/02/21 03/02/22 History lisinopriL [Zestril] 5 mg PO DAILY 02/02/21 03/02/22 History Atorvastatin [Lipitor] 80 mg PO DAILY 02/07/21 03/02/22 History Empagliflozin [Jardiance] 10 mg PO DAILY 09/19/21 03/02/22 History traMADol HCL 50 mg PO TID 01/17/22 03/02/22 History Famotidine [Pepcid] 20 mg PO DAILY 03/02/22 03/02/22 History Insulin Aspart [NovoLOG Flexpen] 25 units SQ AC-TID 03/02/22 03/02/22 History Insulin Glargine,Hum.rec.anlog 35 unit SQ DAILY 03/02/22 03/02/22 History [Basaglar Kwikpen U-100] Insulin Glargine,Hum.rec.anlog 45 unit SQ HS 03/02/22 03/02/22 History [Basaglar Kwikpen U-100] Levothyroxine Sodium [Synthroid] 125 mcg PO DAILY 03/02/22 03/02/22 History Allergies Allergy/AdvReac Type Severity Reaction Status Date / Time codeine AdvReac Nausea & Verified 03/02/22 18:35 Vomiting Physical Exam Vitals: Vital Signs Temp Pulse Pulse Resp BP BP Pulse Ox 03/03/22 08:48 94 L 03/03/22 07:33 99.4 F 107 H 18 95/52 93 L 03/03/22 06:14 101 H 03/03/22 02:45 92 18 03/03/22 02:04 103.1 F H 121 H 134/66 93 L 03/02/22 23:46 98.8 F 92 18 115/69 98 03/02/22 20:41 102.7 F H 03/02/22 19:46 103 F H 103 H 20 120/74 96 03/02/22 18:18 105.7 F H 116 H 18 128/78 94 L 03/02/22 16:56 103.5 F H 108 H 16 126/74 97 Intake and Output 03/02/22 03/03/22 03/03/22 22:59 06:59 14:59 Output Total 1999 Balance -1999 Output: Urine 1999 Other: Voiding Method External Catheter # Voids 4 Weight 99.79 kg 99.79 kg In general patient is alert and oriented x 3 in no distress HEENT head normocephalic and atraumatic Neck is supple no JVD no goiter no lymphadenopathy no carotid bruit Chest examination reveals a scattered crackles bilaterally no wheezing Cardiac exam reveals regular heart sounds S1 and S2 with stools over 6 systolic murmur in the right sternal border Abdomen is soft nontender no organomegaly with normal bowel sounds Extremity exam reveals no edema no cyanosis or clubbing Neurological examination reveals no gross focal deficits Results CBC & Chem 7: 03/03/22 04:45 03/03/22 04:45 Labs: Abnormal Lab Results - Last 24 Hours (Table) 03/02/22 03/02/22 03/02/22 Range/Units 17:38 17:53 17:53 RBC (4.10-5.20) X 10*6/uL Hgb (12.0-15.0) g/dL Hct 33.6 L (34.0-46.0) % MPV (9.5-12.2) fL Lymphocytes # (0.90-5.00) X 10*3/uL Lymphocytes # (Manual) 0.49 L (1.0-4.8) k/uL Eosinophils # (0.04-0.35) X 10*3/uL PT 21.7 H (9.0-12.0) sec INR 2.2 H (<1.2) APTT 42.5 H (22.0-30.0) sec Sodium 127 L (137-145) mmol/L Chloride 95 L (98-107) mmol/L Carbon Dioxide (20.0-27.5) mmol/L Creatinine 1.12 H (0.52-1.04) mg/dL Est GFR (CKD-EPI)NonAf (60.0-200.0) Glucose 197 H (74-99) mg/dL POC Glucose (mg/dL) (75-99) mg/dL Calcium (8.7-10.3) mg/dL AST 72 H (14-36) U/L ALT 36 H (4-34) U/L 03/02/22 03/03/22 03/03/22 Range/Units 23:41 04:45 04:45 RBC 3.49 L (4.10-5.20) X 10*6/uL Hgb 10.0 L (12.0-15.0) g/dL Hct 29.6 L (34.0-46.0) % MPV 9.2 L (9.5-12.2) fL Lymphocytes # 0.19 L (0.90-5.00) X 10*3/uL Lymphocytes # (Manual) (1.0-4.8) k/uL Eosinophils # 0 L (0.04-0.35) X 10*3/uL PT (9.0-12.0) sec INR (<1.2) APTT (22.0-30.0) sec Sodium 130 L (137-145) mmol/L Chloride (98-107) mmol/L Carbon Dioxide 15.8 L (20.0-27.5) mmol/L Creatinine (0.52-1.04) mg/dL Est GFR (CKD-EPI)NonAf 53.7 L (60.0-200.0) Glucose 218 H (74-99) mg/dL POC Glucose (mg/dL) 183 H (75-99) mg/dL Calcium 8.1 L (8.7-10.3) mg/dL AST (14-36) U/L ALT (4-34) U/L 03/03/22 03/03/22 03/03/22 Range/Units 04:45 07:13 11:32 RBC (4.10-5.20) X 10*6/uL Hgb (12.0-15.0) g/dL Hct (34.0-46.0) % MPV (9.5-12.2) fL Lymphocytes # (0.90-5.00) X 10*3/uL Lymphocytes # (Manual) (1.0-4.8) k/uL Eosinophils # (0.04-0.35) X 10*3/uL PT 16.5 H (9.0-12.0) sec INR 1.49 H (<1.2) APTT (22.0-30.0) sec Sodium (137-145) mmol/L Chloride (98-107) mmol/L Carbon Dioxide (20.0-27.5) mmol/L Creatinine (0.52-1.04) mg/dL Est GFR (CKD-EPI)NonAf (60.0-200.0) Glucose (74-99) mg/dL POC Glucose (mg/dL) 150 H 120 H (75-99) mg/dL Calcium (8.7-10.3) mg/dL AST (14-36) U/L ALT (4-34) U/L Microbiology - Last 24 Hours (Table) 03/02/22 17:53 Blood Culture Gram Stain - Preliminary Blood 03/02/22 17:38 Blood Culture Gram Stain - Preliminary Blood 03/02/22 17:53 Blood Culture - Final Blood 03/02/22 17:38 Blood Culture - Final Blood Thrombosis Risk Factor Assmnt - Choose All That Apply Each Factor Represents 1 point: Age 41-60 years Other congenital or acquired thrombophilia - If yes, enter type in comment: No Thrombosis Risk Factor Assessment Total Risk Factor Score: 1 Thrombosis Risk Factor Assessment Level: Low Risk Assessment and Plan Plan: 1. Sepsis, with positive blood culture 2. Possible underlying pneumonia 3. Hyponatremia on presentation 4. Mental status changes on presentation likely related to sepsis and elevated temperature, improving 5. Underlying history of insulin-dependent diabetes mellitus 6. Underlying history of aortic valve replacement with mechanical valve patient is maintained on Coumadin 7. Underlying history of hypertension 8. Underlying history of hyperlipidemia 9. Underlying history of hypothyroidism 10. Underlying history of bipolar disorder, and schizoaffective disorder At this time patient is admitted to medical floor She is maintained on IV antibiotics, initially patient was given Rocephin and Zithromax in the emergency room for presumed pneumonia. Positive blood cultures at night when he first reported as gram-negative bacilli, antibiotics were changed to IV Zosyn and IV Levaquin. At this time blood cultures are reported as gram-positive cocci in clusters, will continue with IV Zosyn Will discontinue Levaquin and add IV vancomycin pharmacy to dose. Awaiting urine analysis and will urine culture results Infectious disease consultation was requested Coumadin was resumed will monitor INR daily, goal 2.5-3.5 due to mechanical valve
[2022-03-03 16:41] LABS: Glucose,Whole Blood 158 mg/dL (75-99)
[2022-03-03] MEDS ORDERED: WARFARIN 10 MG TAB PO ONE (18:00)
[2022-03-03] MEDS ORDERED: SODIUM CHLORIDE 0.9% 1,000 ML IV ONE (19:00)
[2022-03-03 21:33] LABS: Glucose,Whole Blood 172 mg/dL (75-99)
[2022-03-03 22:41] LABS: Appearance,Urine Cloudy (Clear); Bilirubin,Urine Negative (Negative); Blood,Urine Trace (Negative); Color,Urine Yellow; Glucose,Urine (UA) 4+ (Negative); Ketones,Urine Negative (Negative); PH, Urine 5.5 (5.0-8.0); Protein,Urine 1+ (Negative); Specific Gravity,Urine 1.024 (1.001-1.035)
[2022-03-03 22:42] LABS: Amorphous Sediment,Urine Rare /hpf; Bacteria,Urine Rare /hpf; Leukocyte Esterase,Urine Negative (Negative); Nitrite,Urine Negative (Negative); RBC,Urine 1 /hpf (0-5); Squamous Epithelial Cell,Urine 1 /hpf (0-4); Urobilinogen,Urine <2.0 mg/dL (<2.0); WBC,Urine 1 /hpf (0-5)
[2022-03-03] MEDS ORDERED: SODIUM CHLORIDE 0.9% 500 ML 500 ML IV ONE (22:44)
[2022-03-04] MEDS: IBUPROFEN 400 MG TAB PO PRN ×3 (02:03→23:08)
[2022-03-04] MEDS: ACETAMINOPHEN TAB 325 MG TAB PO PRN ×4 (02:03→23:08)
[2022-03-04] MEDS: SODIUM CHLORIDE 0.9% 1,000 ML IV SCH ×3 (02:03→23:13)
[2022-03-04] MEDS: LEVOTHYROXINE 125 MCG TAB PO SCH (06:13)
[2022-03-04 07:06] LABS: Glucose,Whole Blood 83 mg/dL (75-99)
[2022-03-04] MEDS: METOPROLOL SUCCINATE (ER) 100 MG TAB.ER.24H PO SCH (08:12)
[2022-03-04] MEDS: INSULIN DETEMIR (LEVEMIR) 100 UNIT/ML SYR SQ SCH ×2 (08:12→22:24)
[2022-03-04] MEDS: lisinopriL 5 MG TAB PO SCH (08:13)
[2022-03-04] MEDS: FAMOTIDINE 20 MG TAB PO SCH (08:13)
[2022-03-04] MEDS: ATORVASTATIN 80 MG TAB PO SCH (08:13)
[2022-03-04] MEDS: traMADol 50 MG TAB PO SCH ×3 (08:13→23:07)
[2022-03-04] MEDS: VENLAFAXINE HCL ER 150 MG CAP PO SCH (08:13)
[2022-03-04] MEDS: INSULIN ASPART (NovoLOG) 100 UNIT/ML VIAL SQ SCH ×3 (08:14→18:28)
--- NOTE | 2022-03-04 08:26 | P.CONS ---
History of Present Illness - Reason for Consult Consult date: 03/03/22 Sepsis Requesting physician: Felisa Romo - Chief Complaint Fever and chills x 2 days - History of Present Illness Patient is 61-year female with a past medical history difficult for diabetes mellitus hypertension hyperlipidemia presenting to the ER for evaluation of confusion and mental status changes patient be complaining of feeling nauseated and vomiting for a day before presentation to hospital however denies have any abdominal pain no chest pain no shortness with no cough no sick contact with the center the patient was evaluated by the ER physician on arrival to the ER patient did have a fever of 103.5 F patient did have a normal white count did have a normal creatinine level enzymes are normal urine was negative influenza RSV and SARS-CoV-2 PCR was negative patient did have a chest x-ray scattered opacities measuring representing atypical pneumonia patient did have a CT of abdominal pelvis right upper thigh enlarged lymph nodes mild bladder wall thickening no evidence of opacity seen on the prior radiographs patient was started on Zosyn and Levaquin infectious disease was consulted for further management of antibiotic therapy patient blood culture subsequent came back positive with gram-positive cocci, patient was noticed to have a right foot plantar swelling redness but not specifically the patient mention she did cut it few days ago and seem to have some discomfort to the area more of a dull aching pain 2-3 out of 10 no radiation with associated swelling and redness but no foul-smelling drainage. Review of Systems Positive point has been mentioned in the HPI rest of the systems are negative Past Medical History Past Medical History: Diabetes Mellitus, GERD/Reflux, Hyperlipidemia, Hypertension, Pneumonia, Sleep Apnea/CPAP/BIPAP, Thyroid Disorder Additional Past Medical History / Comment(s): IDDM type II, neuropathy bilateral feet, rheumatic fever at age 11yrs/scar tissue on valve, aortic valve replacement (mechanical), pt states she had a blood clot around aortic valve prior to surgery, POLLO but does not tolerate Cpap, constipation, L ovarian cyst, hypothyroid. History of Any Multi-Drug Resistant Organisms: None Reported Year Discovered:: 2013 Past Surgical History: Appendectomy, Cardiac Valve Replacement, Section, Joint Replacement, Orthopedic Surgery Additional Past Surgical History / Comment(s): BLANCA, aortic valve replacement (mechanical), L total knee arthroplasty, L foot bunionectomy, EGDs, colonoscopy. Past Anesthesia/Blood Transfusion Reactions: Previous Problems w/ Anesthesia Additional Past Anesthesia/Blood Transfusion Reaction / Comm: Stopped breathing when a EGD was done Past Psychological History: Anxiety, Bipolar Additional Psychological History / Comment(s): Pt resides with her 2 children ages 15 and 19 yrs. She uses a cane to ambulate and occasionally a walker. 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 Smoking Status: Never smoker Past Alcohol Use History: Occasional Additional Past Alcohol Use History / Comment(s): Pt states she occasionally with have a couple beers on the weekend. She states she previously was a heavy beer drinker. Past Drug Use History: None Reported - Past Family History Father Additional Family Medical History / Comment(s): Bipolar and ETOH abuse Mother Additional Family Medical History / Comment(s): ETOH abuse Medications and Allergies Home Medications Medication Instructions Recorded Confirmed Type Ergocalciferol [Vitamin D2 (1250 1,250 mcg PO MO 02/02/21 03/02/22 History Mcg = 69385 Iu)] Metoprolol Succinate (ER) [Toprol 100 mg PO DAILY 02/02/21 03/02/22 History XL] OLANZapine [ZyPREXA] 20 mg PO HS 02/02/21 03/02/22 History Venlafaxine HCl [Effexor XR] 300 mg PO DAILY 02/02/21 03/02/22 History clonazePAM 1 mg PO BID PRN 02/02/21 03/02/22 History lisinopriL [Zestril] 5 mg PO DAILY 02/02/21 03/02/22 History Atorvastatin [Lipitor] 80 mg PO DAILY 02/07/21 03/02/22 History Empagliflozin [Jardiance] 10 mg PO DAILY 09/19/21 03/02/22 History traMADol HCL 50 mg PO TID 01/17/22 03/02/22 History Famotidine [Pepcid] 20 mg PO DAILY 03/02/22 03/02/22 History Insulin Aspart [NovoLOG Flexpen] 25 units SQ AC-TID 03/02/22 03/02/22 History Insulin Glargine,Hum.rec.anlog 35 unit SQ DAILY 03/02/22 03/02/22 History [Basaglar Kwikpen U-100] Insulin Glargine,Hum.rec.anlog 45 unit SQ HS 03/02/22 03/02/22 History [Stone Braun U-100] Levothyroxine Sodium [Synthroid] 125 mcg PO DAILY 03/02/22 03/02/22 History Allergies Allergy/AdvReac Type Severity Reaction Status Date / Time codeine AdvReac Nausea & Verified 03/02/22 18:35 Vomiting Physical Exam Vitals: Vital Signs Temp Pulse Pulse Resp BP BP Pulse Ox 03/03/22 08:48 94 L 03/03/22 07:33 99.4 F 107 H 18 95/52 93 L 03/03/22 06:14 101 H 03/03/22 02:45 92 18 03/03/22 02:04 103.1 F H 121 H 134/66 93 L 03/02/22 23:46 98.8 F 92 18 115/69 98 03/02/22 20:41 102.7 F H 03/02/22 19:46 103 F H 103 H 20 120/74 96 03/02/22 18:18 105.7 F H 116 H 18 128/78 94 L 03/02/22 16:56 103.5 F H 108 H 16 126/74 97 Intake and Output 03/02/22 03/03/22 03/03/22 22:59 06:59 14:59 Output Total 1999 Balance -1999 Output: Urine 1999 Other: Voiding Method External Catheter # Voids 4 Weight 99.79 kg 99.79 kg GENERAL DESCRIPTION: Middle-aged female lying in bed, no distress. No tachypnea or accessory muscle of respiration use. HEENT: Shows Pallor , no scleral icterus. Oral mucous membrane is dry. No pharyngeal erythema or thrush NECK: Trachea central, no thyromegaly. LUNGS: Unlabored breathing. Clear to auscultation anteriorly. No wheeze or crackle. HEART: S1, S2, regular rate and rhythm. No loud murmur ABDOMEN: Soft, no tenderness , guarding or rigidity, no organomegaly EXTREMITIES: No edema of feet. Right foot plantar aspect at the base of first met also have swelling and redness no drainage SKIN: No rash, no masses palpable. NEUROLOGICAL: The patient is awake, alert, oriented x3, mood and affect normal. Results CBC & Chem 7: 03/03/22 04:45 03/03/22 04:45 Labs: Abnormal Lab Results - Last 24 Hours (Table) 03/02/22 03/02/22 03/02/22 Range/Units 17:38 17:53 17:53 RBC (4.10-5.20) X 10*6/uL Hgb (12.0-15.0) g/dL Hct 33.6 L (34.0-46.0) % MPV (9.5-12.2) fL Lymphocytes # (0.90-5.00) X 10*3/uL Lymphocytes # (Manual) 0.49 L (1.0-4.8) k/uL Eosinophils # (0.04-0.35) X 10*3/uL PT 21.7 H (9.0-12.0) sec INR 2.2 H (<1.2) APTT 42.5 H (22.0-30.0) sec Sodium 127 L (137-145) mmol/L Chloride 95 L (98-107) mmol/L Carbon Dioxide (20.0-27.5) mmol/L Creatinine 1.12 H (0.52-1.04) mg/dL Est GFR (CKD-EPI)NonAf (60.0-200.0) Glucose 197 H (74-99) mg/dL POC Glucose (mg/dL) (75-99) mg/dL Calcium (8.7-10.3) mg/dL AST 72 H (14-36) U/L ALT 36 H (4-34) U/L 03/02/22 03/03/22 03/03/22 Range/Units 23:41 04:45 04:45 RBC 3.49 L (4.10-5.20) X 10*6/uL Hgb 10.0 L (12.0-15.0) g/dL Hct 29.6 L (34.0-46.0) % MPV 9.2 L (9.5-12.2) fL Lymphocytes # 0.19 L (0.90-5.00) X 10*3/uL Lymphocytes # (Manual) (1.0-4.8) k/uL Eosinophils # 0 L (0.04-0.35) X 10*3/uL PT (9.0-12.0) sec INR (<1.2) APTT (22.0-30.0) sec Sodium 130 L (137-145) mmol/L Chloride (98-107) mmol/L Carbon Dioxide 15.8 L (20.0-27.5) mmol/L Creatinine (0.52-1.04) mg/dL Est GFR (CKD-EPI)NonAf 53.7 L (60.0-200.0) Glucose 218 H (74-99) mg/dL POC Glucose (mg/dL) 183 H (75-99) mg/dL Calcium 8.1 L (8.7-10.3) mg/dL AST (14-36) U/L ALT (4-34) U/L 03/03/22 03/03/22 03/03/22 Range/Units 04:45 07:13 11:32 RBC (4.10-5.20) X 10*6/uL Hgb (12.0-15.0) g/dL Hct (34.0-46.0) % MPV (9.5-12.2) fL Lymphocytes # (0.90-5.00) X 10*3/uL Lymphocytes # (Manual) (1.0-4.8) k/uL Eosinophils # (0.04-0.35) X 10*3/uL PT 16.5 H (9.0-12.0) sec INR 1.49 H (<1.2) APTT (22.0-30.0) sec Sodium (137-145) mmol/L Chloride (98-107) mmol/L Carbon Dioxide (20.0-27.5) mmol/L Creatinine (0.52-1.04) mg/dL Est GFR (CKD-EPI)NonAf (60.0-200.0) Glucose (74-99) mg/dL POC Glucose (mg/dL) 150 H 120 H (75-99) mg/dL Calcium (8.7-10.3) mg/dL AST (14-36) U/L ALT (4-34) U/L Microbiology - Last 24 Hours (Table) 03/02/22 17:53 Blood Culture Gram Stain - Preliminary Blood 03/02/22 17:38 Blood Culture Gram Stain - Preliminary Blood 03/02/22 17:53 Blood Culture - Final Blood 03/02/22 17:38 Blood Culture - Final Blood Assessment and Plan (1) Pyrexia Current Visit: Yes Status: Acute Code(s): R50.9 - FEVER, UNSPECIFIED SNOME D Code(s): 648108667 Plan: 1patient presented to hospital with mental status changes fever and this patient did have a nausea and vomiting now with evidence of gram-positive bacteremia source likely right foot infection was apparently the patient did have a cut few days ago the area slightly fluctuant concerning for possible abscess and likely the source of her infection. 2blood cultures will be repeated document clearance of bacteremia. 3we will obtain a CT of the right foot to make sure no evidence of any abscess that may need to be drained. 4discontinue Zosyn and Levaquin. 5vancomycin pharmacy to dose target trough of 15 while watching kidney function and vancomycin trough closely. We will follow on clinical condition and cultures to further adjust medication if needed Thank you for this consultation will follow this patient along with you Time with Patient: Greater than 30
--- NOTE | 2022-03-04 10:47 | P.PN ---
Subjective Progress Note Date: 03/04/22 Linda Isaac, is a 61-year-old female who presented to [facility] emergency room with a chief complaint of fever or chills and mental status changes. She was evaluated in the emergency room vital examination on presentation revealed a temperature of 105.7 pulse 116 respiration 18 and blood pressure 128/78 pulse ox 94% on room air Laboratory data revealed a white blood count of 5.4 hemoglobin 12.1 platelet count 204 sodium 127 potassium 4.3 chloride 95 CO2 24 BUN 17 creatinine 1.12 AST elevated at 72 ALT 36 influenza A and B titers and COVID-19 PCR were negative, urine analysis was not done, INR was 2.2 Testing in the emergency room revealed chest x-ray done in the emergency room revealed scattered opacities which may represent atypical pneumonia, computed tomography scan of the brain done in the emergency room without contrast revealed no acute intracranial process, computed tomography scan of the abdomen and pelvis done in the emergency room revealed a right thigh enlarged lymph node, bladder wall thickening, and hepatic steatosis. Patient was admitted to medical floor for further evaluation and treatment. She was started on IV antibiotic Rocephin and Zithromax in the emergency room for presumed pneumonia, shortly after admission patient had positive blood culture for gram-negative bacilli and IV antibiotics were changed to Zosyn and Levaquin, infectious disease consultation was requested. Past medical history is significant for history of aortic valve replacement with mechanical valve patient is maintained on Coumadin, history of morbid obesity, history of obstructive sleep apnea, history of hypothyroidism, history of bipolar disorder with schizoaffective disorder, history of hypertension, history of hyperlipidemia, and history of diabetes mellitus. On review of systems at this time patient is alert and oriented 3 in no apparent distress she is complaining of episodes on and off of shaking chills, otherwise she denies any complaints at this time there is no headache or dizziness no chest pain no shortness of breath no cough no nausea or vomiting no abdominal pain no diarrhea and no urinary symptoms. On 03/04/2022 patient is alert and oriented 3. CT of right foot ordered per infectious disease to rule out abscess. Patient is positive for bacteremia remains on IV antibiotics. Patient stating that she would like to go home explained patient that she had positive blood culture requiring IV antibiotics. Lab work currently pending. Current vitals temp 98.6, heart rate 75, respiratory rate 17, blood pressure 100/65 patient sating 96% on room air Objective - Vital Signs Vital signs: Vital Signs Temp 98.6 F 03/04/22 08:00 Pulse 75 03/04/22 08:00 Resp 17 03/04/22 08:00 BP 100/65 03/04/22 08:00 Pulse Ox 96 03/04/22 08:11 Intake & Output 03/03/22 03/04/22 03/04/22 18:59 06:59 18:59 Output Total 1100 Balance -1100 Output: Urine 1100 Other: Voiding Method Toilet External Catheter # Voids 2 # Bowel Movements 0 - Exam In general patient is alert and oriented x 3 in no distress HEENT head normocephalic and atraumatic Neck is supple no JVD no goiter no lymphadenopathy no carotid bruit Chest examination reveals a scattered crackles bilaterally no wheezing Cardiac exam reveals regular heart sounds S1 and S2 with stools over 6 systolic murmur in the right sternal border Abdomen is soft nontender no organomegaly with normal bowel sounds Extremity exam reveals no edema no cyanosis or clubbing Neurological examination reveals no gross focal deficits - Labs CBC & Chem 7: 03/03/22 04:45 03/03/22 04:45 Labs: Abnormal Lab Results - Last 24 Hours (Table) 03/03/22 03/03/22 03/03/22 Range/Units 11:32 16:40 21:31 POC Glucose (mg/dL) 120 H 158 H 172 H (75-99) mg/dL Urine Appearance (Clear) Urine Protein (Negative) Urine Glucose (UA) (Negative) Urine Blood (Negative) Amorphous Sediment (None) /hpf Urine Bacteria (None) /hpf 03/03/22 Range/Units 22:00 POC Glucose (mg/dL) (75-99) mg/dL Urine Appearance Cloudy H (Clear) Urine Protein 1+ H (Negative) Urine Glucose (UA) 4+ H (Negative) Urine Blood Trace H (Negative) Amorphous Sediment Rare H (None) /hpf Urine Bacteria Rare H (None) /hpf Microbiology - Last 24 Hours (Table) 03/02/22 17:38 Blood Culture Gram Stain - Preliminary Blood Blood Culture - Preliminary Staphylococcus aureus 03/02/22 17:53 Blood Culture Gram Stain - Preliminary Blood 03/02/22 17:53 Blood Culture - Final Blood Assessment and Plan Plan: 1. Sepsis, with positive blood culture 2. Possible underlying pneumonia 3. Hyponatremia on presentation 4. Mental status changes on presentation likely related to sepsis and elevated temperature, improving 5. Underlying history of insulin-dependent diabetes mellitus 6. Underlying history of aortic valve replacement with mechanical valve patient is maintained on Coumadin 7. Underlying history of hypertension 8. Underlying history of hyperlipidemia 9. Underlying history of hypothyroidism 10. Underlying history of bipolar disorder, and schizoaffective disorder At this time patient is admitted to medical floor She is maintained on IV antibiotics, initially patient was given Rocephin and Zithromax in the emergency room for presumed pneumonia. Positive blood cultures at night when he first reported as gram-negative bacilli, antibiotics were changed to IV Zosyn and IV Levaquin. At this time blood cultures are reported as gram-positive cocci in clusters, will continue with IV Zosyn Will discontinue Levaquin and add IV vancomycin pharmacy to dose. Awaiting urine analysis and will urine culture results Infectious disease consultation was requested CT of right foot ordered per infectious disease Coumadin was resumed will monitor INR daily, goal 2.5-3.5 due to mechanical valve
--- NOTE | 2022-03-04 11:06 | CT ---
EXAMINATION TYPE: CT foot RT w con DATE OF EXAM: 03/04/2022 COMPARISON: None. HISTORY: Abscess. Focal pain and swelling base first metatarsal. CT DLP: 327.6 mGycm Automated exposure control for dose reduction was used. CONTRAST: Performed with IV Contrast, patient injected with 80 mL of Isovue 300. FINDINGS: Focal soft tissue swelling and subcutaneous edema near the head of the first metatarsal extending med ially and through the plantar surface where there is hallux valgus positioning noted. There is slight ly less prominent subcutaneous edema in and soft tissue swelling of the head of the fifth metatarsal. No well-formed fluid collection or drainable abscess. Flexion in the toes with mild to moderate diffuse subcutaneous edema along the plantar surface. Mild diffuse subcutaneous edema along the plantar surface hindfoot and midfoot level. No bony destruction is identified. Subchondral cystic change with narrowing at the cuneiform bone articulation with the base of the firs t through third metatarsals. Moderate size inferior calcaneal spur. No acute displaced fracture. IMPRESSION: As above.
[2022-03-04 11:29] LABS: Glucose,Whole Blood 72 mg/dL (75-99)
[2022-03-04 13:16] LABS: Basophils % (A) 0 %; Eosinophils % (A) 0 %; HCT 30.7 % (34.0-46.0); HGB 10.3 gm/dL (11.4-16.0); Lymphocytes # (A) 0.2 k/uL (1.0-4.8); Lymphocytes % (A) 4 %; MCH 30.1 pg (25.0-35.0); MCHC 33.7 g/dL (31.0-37.0); MCV 89.4 fL (80.0-100.0); Mean Platelet Volume 8.5; Monocytes # (A) 0.2 k/uL (0-1.0); Monocytes % (A) 4 %; Neutrophils # (A) 4.9 k/uL (1.3-7.7); Neutrophils % (A) 91 %; Platelet Count 133 k/uL (150-450); RBC 3.44 m/uL (3.80-5.40); RDW 13.4 % (11.5-15.5); WBC 5.4 k/uL (3.8-10.6)
[2022-03-04 13:35] LABS: ALT 62 U/L (4-34); AST 102 U/L (14-36); African American GFR (CKD) 51 (>60 ml/min/1.73 sqM); Albumin/Globulin Ratio 1.2; Alkaline Phosphatase 121 U/L (38-126); Anion Gap 10 mmol/L; Blood Urea Nitrogen 19 mg/dL (7-17); Calcium 7.7 mg/dL (8.4-10.2); Carbon Dioxide 19 mmol/L (22-30); Chloride 100 mmol/L (98-107); Globulin 2.6 g/dL; Glucose 72 mg/dL (74-99); Non-African American GFR(CKD) 45 (>60 ml/min/1.73 sqM); Potassium 3.5 mmol/L (3.5-5.1); Sodium 129 mmol/L (137-145); Total Bilirubin 0.7 mg/dL (0.2-1.3); Total Protein 5.6 g/dL (6.3-8.2)
[2022-03-04 13:39] LABS: INR 1.6 (<1.2)
[2022-03-04 14:18] LABS: C Reactive Protein 35.5 mg/dL (<1.0)
[2022-03-04 14:32] LABS: Erythrocyte Sedimentation Rate 87 mm/hr (0-20)
[2022-03-04] MEDS: ALPRAZolam 0.25 MG TAB PO PRN (16:49)
[2022-03-04 17:02] LABS: Glucose,Whole Blood 38 mg/dL (75-99)
[2022-03-04 17:13] LABS: Glucose,Whole Blood 46 mg/dL (75-99)
[2022-03-04] MEDS ORDERED: WARFARIN 10 MG TAB PO ONE (18:00)
[2022-03-04 18:02] LABS: Glucose,Whole Blood 66 mg/dL (75-99)
[2022-03-04 18:20] LABS: Glucose,Whole Blood 115 mg/dL (75-99)
[2022-03-04] MEDS: OLANZapine 10 MG TAB PO SCH (23:07)
--- NOTE | 2022-03-04 23:30 | P.PN ---
Subjective Progress Note Date: 03/04/22 Principal diagnosis: MSSA bacteremia and right foot cellulitis Patient is a 61 year female with a past medical history significant for diabetes mellitus presented to hospital record nausea no vomiting noticed to have MSSA bacteremia secondary to the right foot plantar wound, patient did have a CT of the right foot completed 03/04/2022 with no evidence of any drainable abscess. On today's evaluation that is 03/04/2022, the patient denies having any fever or any chills, the patient denies having any chest pain shortness of breath or cough. The right foot is currently controlled no drainage or nausea no vomiting and no diarrhea Objective - Vital Signs Vital signs: Vital Signs Temp 98.6 F 03/04/22 08:00 Pulse 75 03/04/22 08:00 Resp 17 03/04/22 08:00 BP 100/65 03/04/22 08:00 Pulse Ox 96 03/04/22 08:11 Intake & Output 03/03/22 03/04/22 03/04/22 18:59 06:59 18:59 Output Total 1100 Balance -1100 Output: Urine 1100 Other: Voiding Method Toilet Toilet External Catheter # Voids 2 # Bowel Movements 0 - Exam GENERAL DESCRIPTION: Middle-aged female lying in bed in no distress RESPIRATORY SYSTEM: Unlabored breathing , decreased breath sounds at bases HEART: S1 S2 regular rate and rhythm , ABDOMEN: Soft , no tenderness EXTREMITIES: No edema feet - Labs CBC & Chem 7: 03/04/22 12:37 03/04/22 12:37 Labs: Abnormal Lab Results - Last 24 Hours (Table) 03/03/22 03/03/22 03/03/22 Range/Units 16:40 21:31 22:00 POC Glucose (mg/dL) 158 H 172 H (75-99) mg/dL Urine Appearance Cloudy H (Clear) Urine Protein 1+ H (Negative) Urine Glucose (UA) 4+ H (Negative) Urine Blood Trace H (Negative) Amorphous Sediment Rare H (None) /hpf Urine Bacteria Rare H (None) /hpf 03/04/22 Range/Units 11:28 POC Glucose (mg/dL) 72 L (75-99) mg/dL Urine Appearance (Clear) Urine Protein (Negative) Urine Glucose (UA) (Negative) Urine Blood (Negative) Amorphous Sediment (None) /hpf Urine Bacteria (None) /hpf Microbiology - Last 24 Hours (Table) 03/02/22 17:38 Blood Culture Gram Stain - Preliminary Blood Blood Culture - Preliminary Staphylococcus aureus 03/02/22 17:53 Blood Culture Gram Stain - Preliminary Blood Assessment and Plan (1) Pyrexia Current Visit: Yes Status: Acute Code(s): R50.9 - FEVER, UNSPECIFIED SNOMED Code(s): 435096334 Plan: 1patient presented to hospital with mental status changes fever and this patient did have a nausea and vomiting now with evidence of gram-positive bacteremia source likely right foot infection was apparently the patient did have a cut few days ago the area slightly fluctuant concerning for possible abscess and likely the source of her infection. 2blood cultures will be repeated document clearance of bacteremia. 3CT of the right foot to make did not show any evidence of any abscess 4patient to continue with cefazolin 2 g every 8 hours Time with Patient: Less than 30
[2022-03-05 06:59] LABS: Glucose,Whole Blood 51 mg/dL (75-99)
[2022-03-05 07:12] LABS: Glucose,Whole Blood 45 mg/dL (75-99)
[2022-03-05] MEDS: INSULIN ASPART (NovoLOG) 100 UNIT/ML VIAL SQ SCH ×3 (07:26→16:51)
[2022-03-05 07:28] LABS: Glucose,Whole Blood 52 mg/dL (75-99)
[2022-03-05 07:47] LABS: Glucose,Whole Blood 47 mg/dL (75-99)
[2022-03-05] MEDS ORDERED: DEXTROSE 50% SYRINGE 50 ML IVP ONE (07:50)
[2022-03-05 08:18] LABS: Glucose,Whole Blood 124 mg/dL (75-99)
[2022-03-05 08:33] LABS: INR 1.7 (<1.2); Prothrombin Time 16.9 sec (9.0-12.0)
[2022-03-05] MEDS: INSULIN DETEMIR (LEVEMIR) 100 UNIT/ML SYR SQ SCH ×2 (08:35→21:17)
[2022-03-05] MEDS: ATORVASTATIN 80 MG TAB PO SCH (08:38)
[2022-03-05] MEDS: traMADol 50 MG TAB PO SCH ×3 (08:38→21:16)
[2022-03-05] MEDS: FAMOTIDINE 20 MG TAB PO SCH (08:38)
[2022-03-05] MEDS: lisinopriL 5 MG TAB PO SCH (08:39)
[2022-03-05] MEDS: LEVOTHYROXINE 125 MCG TAB PO SCH (08:39)
[2022-03-05] MEDS: METOPROLOL SUCCINATE (ER) 100 MG TAB.ER.24H PO SCH (08:39)
[2022-03-05] MEDS: VENLAFAXINE HCL ER 150 MG CAP PO SCH (08:39)
[2022-03-05] MEDS: SODIUM CHLORIDE 0.9% 1,000 ML IV SCH ×2 (09:42→21:15)
[2022-03-05 11:07] LABS: Glucose,Whole Blood 99 mg/dL (75-99)
[2022-03-05] MEDS: ENOXAPARIN 100 MG/ML SYRINGE SQ SCH ×2 (12:22→21:24)
[2022-03-05] MEDS: ACETAMINOPHEN TAB 325 MG TAB PO PRN (14:30)
[2022-03-05 16:38] LABS: Glucose,Whole Blood 148 mg/dL (75-99)
[2022-03-05] MEDS ORDERED: WARFARIN 5 MG TAB PO ONE (18:00)
[2022-03-05 20:37] LABS: Glucose,Whole Blood 147 mg/dL (75-99)
[2022-03-05] MEDS: OLANZapine 10 MG TAB PO SCH (21:16)
--- NOTE | 2022-03-05 21:18 | P.PN ---
Subjective Progress Note Date: 03/05/22 Principal diagnosis: MSSA bacteremia and right foot cellulitis Patient is a 61 year female with a past medical history significant for diabetes mellitus presented to hospital record nausea no vomiting noticed to have MSSA bacteremia secondary to the right foot plantar wound, patient did have a CT of the right foot completed 03/04/2022 with no evidence of any drainable abscess. On today's evaluation that is 03/05/2022, the patient did have an old inferior 100.7 this afternoon and the patient's complaining of rigors and chills, the patient denies having any chest pain shortness of breath or cough. The denies pain to the right foot , the patient denies nausea no vomiting and no diarrhea Objective - Vital Signs Vital signs: Vital Signs Temp 97.9 F 03/05/22 08:00 Pulse 79 03/05/22 08:00 Resp 18 03/05/22 08:00 BP 144/79 03/05/22 08:00 Pulse Ox 96 03/05/22 08:00 Intake & Output 03/04/22 03/05/22 03/05/22 18:59 06:59 18:59 Other: Voiding Method Toilet Toilet # Voids 3 2 1 # Bowel Movements 2 1 - Exam GENERAL DESCRIPTION: Middle-aged female lying in bed in no distress RESPIRATORY SYSTEM: Unlabored breathing , decreased breath sounds at bases HEART: S1 S2 regular rate and rhythm , ABDOMEN: Soft , no tenderness EXTREMITIES: No edema feet - Labs CBC & Chem 7: 03/04/22 12:37 03/04/22 12:37 Labs: Abnormal Lab Results - Last 24 Hours (Table) 03/04/22 03/04/22 03/04/22 Range/Units 12:37 12:37 17:00 ESR 87 H (0-20) mm/hr PT (9.0-12.0) sec INR (<1.2) Sodium 129 L (137-145) mmol/L Carbon Dioxide 19 L (22-30) mmol/L BUN 19 H (7-17) mg/dL Creatinine 1.31 H (0.52-1.04) mg/dL Glucose 72 L (74-99) mg/dL POC Glucose (mg/dL) 38 L (75-99) mg/dL Calcium 7.7 L (8.4-10.2) mg/dL AST 102 H (14-36) U/L ALT 62 H (4-34) U/L C-Reactive Protein 35.5 H (<1.0) mg/dL Total Protein 5.6 L (6.3-8.2) g/dL Albumin 3.0 L (3.5-5.0) g/dL 03/04/22 03/04/22 03/04/22 Range/Units 17:12 18:00 18:19 ESR (0-20) mm/hr PT (9.0-12.0) sec INR (<1.2) Sodium (137-145) mmol/L Carbon Dioxide (22-30) mmol/L BUN (7-17) mg/dL Creatinine (0.52-1.04) mg/dL Glucose (74-99) mg/dL POC Glucose (mg/dL) 46 L 66 L 115 H (75-99) mg/dL Calcium (8.4-10.2) mg/dL AST (14-36) U/L ALT (4-34) U/L C-Reactive Protein (<1.0) mg/dL Total Protein (6.3-8.2) g/dL Albumin (3.5-5.0) g/dL 03/05/22 03/05/22 03/05/22 Range/Units 06:53 07:11 07:27 ESR (0-20) mm/hr PT (9.0-12.0) sec INR (<1.2) Sodium (137-145) mmol/L Carbon Dioxide (22-30) mmol/L BUN (7-17) mg/dL Creatinine (0.52-1.04) mg/dL Glucose (74-99) mg/dL POC Glucose (mg/dL) 51 L 45 L 52 L (75-99) mg/dL Calcium (8.4-10.2) mg/dL AST (14-36) U/L ALT (4-34) U/L C-Reactive Protein (<1.0) mg/dL Total Protein (6.3-8.2) g/dL Albumin (3.5-5.0) g/dL 03/05/22 03/05/22 03/05/22 Range/Units 07:46 08:06 08:17 ESR (0-20) mm/hr PT 16.9 H (9.0-12.0) sec INR 1.7 H (<1.2) Sodium (137-145) mmol/L Carbon Dioxide (22-30) mmol/L BUN (7-17) mg/dL Creatinine (0.52-1.04) mg/dL Glucose (74-99) mg/dL POC Glucose (mg/dL) 47 L 124 H (75-99) mg/dL Calcium (8.4-10.2) mg/dL AST (14-36) U/L ALT (4-34) U/L C-Reactive Protein (<1.0) mg/dL Total Protein (6.3-8.2) g/dL Albumin (3.5-5.0) g/dL Microbiology - Last 24 Hours (Table) 03/04/22 12:37 Blood Culture Gram Stain - Preliminary Blood 03/03/22 14:10 Blood Culture Gram Stain - Preliminary Blood 03/04/22 12:37 Blood Culture - Final Blood 03/03/22 14:10 Blood Culture - Final Blood 03/02/22 17:53 Blood Culture Gram Stain - Preliminary Blood Blood Culture - Preliminary Presumptive Staph aureus 03/02/22 17:38 Blood Culture Gram Stain - Preliminary Blood Blood Culture - Preliminary Staphylococcus aureus Assessment and Plan (1) Pyrexia Current Visit: Yes Status: Acute Code(s): R50.9 - FEVER, UNSPECIFIED SNOMED Code(s): 744299195 Plan: 1patient presented to hospital with mental status changes fever and this patient did have a nausea and vomiting now with evidence of gram-positive bacteremia source likely right foot infection was apparently the patient did have a cut few days ago the area slightly fluctuant concerning for possible abscess and likely the source of her infection. 2blood cultures are still positive and blood cultures will be repeated to document clearance of bacteremia 3CT of the right foot to make did not show any evidence of any abscess 4patient is currently being treated with cefazolin 2 g every 8 hours to continue and monitor clinical course closely Time with Patient: Less than 30
[2022-03-06] MEDS: ALPRAZolam 0.25 MG TAB PO PRN (01:47)
[2022-03-06] MEDS: ACETAMINOPHEN TAB 325 MG TAB PO PRN (01:47)
[2022-03-06] MEDS: LEVOTHYROXINE 125 MCG TAB PO SCH (05:51)
[2022-03-06 06:30] LABS: INR 2.4 (<1.2); Prothrombin Time 24.2 sec (9.0-12.0)
[2022-03-06 06:44] LABS: Glucose,Whole Blood 64 mg/dL (75-99)
[2022-03-06] MEDS: INSULIN ASPART (NovoLOG) 100 UNIT/ML VIAL SQ SCH ×3 (08:21→16:52)
[2022-03-06] MEDS: INSULIN DETEMIR (LEVEMIR) 100 UNIT/ML SYR SQ SCH ×2 (08:21→22:01)
[2022-03-06 08:24] LABS: Glucose,Whole Blood 70 mg/dL (75-99)
[2022-03-06] MEDS: VENLAFAXINE HCL ER 150 MG CAP PO SCH (08:25)
[2022-03-06] MEDS: ATORVASTATIN 80 MG TAB PO SCH (08:26)
[2022-03-06] MEDS: FAMOTIDINE 20 MG TAB PO SCH (08:26)
[2022-03-06] MEDS: lisinopriL 5 MG TAB PO SCH (08:26)
[2022-03-06] MEDS: traMADol 50 MG TAB PO SCH ×3 (08:26→21:02)
[2022-03-06] MEDS: METOPROLOL SUCCINATE (ER) 100 MG TAB.ER.24H PO SCH (08:27)
[2022-03-06] MEDS: ENOXAPARIN 100 MG/ML SYRINGE SQ SCH (08:27)
[2022-03-06] MEDS: SODIUM CHLORIDE 0.9% 1,000 ML IV SCH ×2 (10:54→16:52)
[2022-03-06 10:59] LABS: Basophils % (A) 0 %; Eosinophils % (A) 1 %; HCT 28.8 % (34.0-46.0); HGB 9.6 gm/dL (11.4-16.0); Lymphocytes # (A) 0.4 k/uL (1.0-4.8); Lymphocytes % (A) 5 %; MCH 29.6 pg (25.0-35.0); MCHC 33.2 g/dL (31.0-37.0); MCV 89.1 fL (80.0-100.0); Mean Platelet Volume 7.8; Monocytes # (A) 0.4 k/uL (0-1.0); Monocytes % (A) 5 %; Neutrophils # (A) 7.3 k/uL (1.3-7.7); Neutrophils % (A) 86 %; Platelet Count 213 k/uL (150-450); RBC 3.24 m/uL (3.80-5.40); RDW 14.2 % (11.5-15.5); WBC 8.5 k/uL (3.8-10.6)
[2022-03-06 11:18] LABS: ALT 58 U/L (4-34); AST 109 U/L (14-36); African American GFR (CKD) >90 (>60 ml/min/1.73 sqM); Albumin 2.9 g/dL (3.5-5.0); Albumin/Globulin Ratio 1.1; Alkaline Phosphatase 436 U/L (38-126); Anion Gap 8 mmol/L; Blood Urea Nitrogen 12 mg/dL (7-17); Calcium 7.9 mg/dL (8.4-10.2); Carbon Dioxide 21 mmol/L (22-30); Chloride 104 mmol/L (98-107); Globulin 2.6 g/dL; Glucose 104 mg/dL (74-99); Non-African American GFR(CKD) 85 (>60 ml/min/1.73 sqM); Potassium 3.9 mmol/L (3.5-5.1); Sodium 133 mmol/L (137-145); Total Bilirubin 0.6 mg/dL (0.2-1.3); Total Protein 5.5 g/dL (6.3-8.2)
--- NOTE | 2022-03-06 11:28 | CDI ---
Documentation Clarification Form Date: 03/06/2022 11:04:55 AM From: Loyda Espana RN, CCDS Admit Date: 03/02/2022 08:06:00 PM Patient Name: Linda Isaac Visit Number: [id number] Discharge Date: ATTENTION: The Clinical Documentation Specialists (CDI) and [facility] Coding Staff appreciate your assistance in clarifying documentation. Please respond to the clarification below the line at the bottom and electronically sign. The CDI & [facility] Coding staff will review the response and follow-up if needed. Please note: Queries are made part of the Legal Health Record. If you have any questions, please contact the author of this message via ITS. Dr. Felisa Romo Your patient has the documented symptom of Altered Mental Status on presentation likely related to sepsis and elevated temperature in the H&P and subsequent progress notes. Additional clarification regarding the etiology/cause of this symptom is requested. 03/04 ID: Presented to hospital with mental status changes fever, nausea and vomiting now with evidence of gram-positive bacteremia source likely right foot infection. History/Risk Factors: Diabetes Mellitus, Hypertension, Hyperlipidemia, Hypothyroidism, Bipolar disorder, schizoaffective disorder. Clinical Indicators: 61-year-old female present with complaints of fever, chills and mental status changes, confused at home. 03/02 vital signs: 126/74 108 16 103.5 97 % room air, 128/78 116 18 105.7 94 % on room air 03/02 Labs: WBC 5.4, Sodium 127, and COVID negative; Blood culture Staphylococcus aureus 03/02 X Ray: Subtle scattered opacities with may represent an atypical pneumonia 03/02 CT Brain: No acute intracranial process Treatment: Scrummaster/Telemetry Neuro checks per protocol Vancomycin 1,750 MG IVPB Q 24 PTD 03/03 .9NS 1,500 ML Bolus 03/02 then 100 MLS HR 03/02-03/03 Zosyn 3.375 ML IVPB Q 8 HRS 03/03 Kefzol 2 GM IVPB Q 8 HRS 03/04-03/06 Please clarify the etiology of the symptom of Altered Mental Status: [ x] Metabolic Encephalopathy due to sepsis [ ] Other condition (please specify) [ ] Unable to determine (Template Last Revised: December 2020) MTDD
[2022-03-06 11:35] LABS: Glucose,Whole Blood 101 mg/dL (75-99)
--- NOTE | 2022-03-06 15:15 | XR ---
EXAMINATION TYPE: XR chest 2V DATE OF EXAM: 03/06/2022 COMPARISON: X-ray dated 03/02/2022 HISTORY: Wheezing TECHNIQUE: Frontal and lateral views of the chest are obtained. FINDINGS: Increased density of the right mid and lower lung zones and to a lesser extent the left lower lung zo ne which could be artifactual from the overlying breast shadows however underlying pulmonary infiltra tion or groundglass opacity can't be excluded, please correlate clinically. Suspected right basal pulmonary atelectasis. Congested pulmonary vasculature bilaterally, pulmonary e laurent cannot be excluded. Increased cardiac transverse diameter, please correlate with echocardiograph ic results. No sizable pleural effusion or definite pneumothorax. Cardiac valve prosthesis, appreciated previousl y. Sternotomy wire sutures. Degenerative changes of the thoracic spine. IMPRESSION: As above.
[2022-03-06 16:36] LABS: Glucose,Whole Blood 119 mg/dL (75-99)
[2022-03-06] MEDS ORDERED: WARFARIN 10 MG TAB PO ONE (18:00)
--- NOTE | 2022-03-06 18:56 | P.PN ---
Subjective Progress Note Date: 03/05/22 Linda Isaac, is a 61-year-old female who presented to [facility] emergency room with a chief complaint of fever or chills and mental status changes. She was evaluated in the emergency room vital examination on presentation revealed a temperature of 105.7 pulse 116 respiration 18 and blood pressure 128/78 pulse ox 94% on room air Laboratory data revealed a white blood count of 5.4 hemoglobin 12.1 platelet count 204 sodium 127 potassium 4.3 chloride 95 CO2 24 BUN 17 creatinine 1.12 AST elevated at 72 ALT 36 influenza A and B titers and COVID-19 PCR were negative, urine analysis was not done, INR was 2.2 Testing in the emergency room revealed chest x-ray done in the emergency room revealed scattered opacities which may represent atypical pneumonia, computed tomography scan of the brain done in the emergency room without contrast revealed no acute intracranial process, computed tomography scan of the abdomen and pelvis done in the emergency room revealed a right thigh enlarged lymph node, bladder wall thickening, and hepatic steatosis. Patient was admitted to medical floor for further evaluation and treatment. She was started on IV antibiotic Rocephin and Zithromax in the emergency room for presumed pneumonia, shortly after admission patient had positive blood culture for gram-negative bacilli and IV antibiotics were changed to Zosyn and Levaquin, infectious disease consultation was requested. Past medical history is significant for history of aortic valve replacement with mechanical valve patient is maintained on Coumadin, history of morbid obesity, history of obstructive sleep apnea, history of hypothyroidism, history of bipolar disorder with schizoaffective disorder, history of hypertension, history of hyperlipidemia, and history of diabetes mellitus. On review of systems at this time patient is alert and oriented 3 in no apparent distress she is complaining of episodes on and off of shaking chills, otherwise she denies any complaints at this time there is no headache or dizziness no chest pain no shortness of breath no cough no nausea or vomiting no abdominal pain no diarrhea and no urinary symptoms. On 03/04/2022 patient is alert and oriented 3. CT of right foot ordered per infectious disease to rule out abscess. Patient is positive for bacteremia remains on IV antibiotics. Patient stating that she would like to go home explained patient that she had positive blood culture requiring IV antibiotics. Lab work currently pending. Current vitals temp 98.6, heart rate 75, respiratory rate 17, blood pressure 100/65 patient sating 96% on room air On 03/05/2022 patient is alert and oriented 3. Patient is positive for bacteremia remains on IV antibiotics. Patient stating that she would like to go home explained patient that she had positive blood culture requiring IV antibiotics. Lab work currently pending. Current vitals temp 98.6, heart rate 70, respiratory rate 18, blood pressure 108/70 patient sating 96% on room air Objective - Vital Signs Vital signs: Vital Signs Temp 97.9 F 03/05/22 08:00 Pulse 79 03/05/22 08:00 Resp 18 03/05/22 08:00 BP 144/79 03/05/22 08:00 Pulse Ox 96 03/05/22 08:00 Intake & Output 03/04/22 03/05/22 03/05/22 18:59 06:59 18:59 Other: Voiding Method Toilet Toilet # Voids 3 2 1 # Bowel Movements 2 1 - Exam In general patient is alert and oriented x 3 in no distress HEENT head normocephalic and atraumatic Neck is supple no JVD no goiter no lymphadenopathy no carotid bruit Chest examination reveals a scattered crackles bilaterally no wheezing Cardiac exam reveals regular heart sounds S1 and S2 with stools over 6 systolic murmur in the right sternal border Abdomen is soft nontender no organomegaly with normal bowel sounds Extremity exam reveals no edema no cyanosis or clubbing Neurological examination reveals no gross focal deficits - Labs CBC & Chem 7: 03/06/22 10:33 03/06/22 10:33 Labs: Abnormal Lab Results - Last 24 Hours (Table) 03/04/22 03/04/22 03/04/22 Range/Units 12:37 12:37 17:00 ESR 87 H (0-20) mm/hr PT (9.0-12.0) sec INR (<1.2) Sodium 129 L (137-145) mmol/L Carbon Dioxide 19 L (22-30) mmol/L BUN 19 H (7-17) mg/dL Creatinine 1.31 H (0.52-1.04) mg/dL Glucose 72 L (74-99) mg/dL POC Glucose (mg/dL) 38 L (75-99) mg/dL Calcium 7.7 L (8.4-10.2) mg/dL AST 102 H (14-36) U/L ALT 62 H (4-34) U/L C-Reactive Protein 35.5 H (<1.0) mg/dL Total Protein 5.6 L (6.3-8.2) g/dL Albumin 3.0 L (3.5-5.0) g/dL 03/04/22 03/04/22 03/04/22 Range/Units 17:12 18:00 18:19 ESR (0-20) mm/hr PT (9.0-12.0) sec INR (<1.2) Sodium (137-145) mmol/L Carbon Dioxide (22-30) mmol/L BUN (7-17) mg/dL Creatinine (0.52-1.04) mg/dL Glucose (74-99) mg/dL POC Glucose (mg/dL) 46 L 66 L 115 H (75-99) mg/dL Calcium (8.4-10.2) mg/dL AST (14-36) U/L ALT (4-34) U/L C-Reactive Protein (<1.0) mg/dL Total Protein (6.3-8.2) g/dL Albumin (3.5-5.0) g/dL 03/05/22 03/05/22 03/05/22 Range/Units 06:53 07:11 07:27 ESR (0-20) mm/hr PT (9.0-12.0) sec INR (<1.2) Sodium (137-145) mmol/L Carbon Dioxide (22-30) mmol/L BUN (7-17) mg/dL Creatinine (0.52-1.04) mg/dL Glucose (74-99) mg/dL POC Glucose (mg/dL) 51 L 45 L 52 L (75-99) mg/dL Calcium (8.4-10.2) mg/dL AST (14-36) U/L ALT (4-34) U/L C-Reactive Protein (<1.0) mg/dL Total Protein (6.3-8.2) g/dL Albumin (3.5-5.0) g/dL 03/05/22 03/05/22 03/05/22 Range/Units 07:46 08:06 08:17 ESR (0-20) mm/hr PT 16.9 H (9.0-12.0) sec INR 1.7 H (<1.2) Sodium (137-145) mmol/L Carbon Dioxide (22-30) mmol/L BUN (7-17) mg/dL Creatinine (0.52-1.04) mg/dL Glucose (74-99) mg/dL POC Glucose (mg/dL) 47 L 124 H (75-99) mg/dL Calcium (8.4-10.2) mg/dL AST (14-36) U/L ALT (4-34) U/L C-Reactive Protein (<1.0) mg/dL Total Protein (6.3-8.2) g/dL Albumin (3.5-5.0) g/dL Microbiology - Last 24 Hours (Table) 03/04/22 12:37 Blood Culture Gram Stain - Preliminary Blood 03/03/22 14:10 Blood Culture Gram Stain - Preliminary Blood 03/04/22 12:37 Blood Culture - Final Blood 03/03/22 14:10 Blood Culture - Final Blood 03/02/22 17:53 Blood Culture Gram Stain - Preliminary Blood Blood Culture - Preliminary Presumptive Staph aureus 03/02/22 17:38 Blood Culture Gram Stain - Preliminary Blood Blood Culture - Preliminary Staphylococcus aureus Assessment and Plan Plan: 1. Sepsis, with positive blood culture 2. Possible underlying pneumonia 3. Hyponatremia on presentation 4. Mental status changes on presentation likely related to sepsis and elevated temperature, improving 5. Underlying history of insulin-dependent diabetes mellitus 6. Underlying history of aortic valve replacement with mechanical valve patient is maintained on Coumadin 7. Underlying history of hypertension 8. Underlying history of hyperlipidemia 9. Underlying history of hypothyroidism 10. Underlying history of bipolar disorder, and schizoaffective disorder At this time patient is admitted to medical floor She is maintained on IV antibiotics, initially patient was given Rocephin and Zithromax in the emergency room for presumed pneumonia. Positive blood cultures at night when he first reported as gram-negative bacilli, antibiotics were changed to IV Zosyn and IV Levaquin. At this time blood cultures are reported as gram-positive cocci in clusters, will continue with IV Zosyn Will discontinue Levaquin and add IV vancomycin pharmacy to dose. Awaiting urine analysis and will urine culture results Infectious disease consultation was requested CT of right foot ordered per infectious disease Coumadin was resumed will monitor INR daily, goal 2.5-3.5 due to mechanical valve
[2022-03-06] MEDS: ALBUTEROL NEBULIZED 2.5 MG/3 ML INHALATION PRN (19:53)
[2022-03-06 20:55] LABS: Glucose,Whole Blood 128 mg/dL (75-99)
[2022-03-06] MEDS: OLANZapine 10 MG TAB PO SCH (21:03)
--- NOTE | 2022-03-06 21:31 | P.PN ---
Subjective Progress Note Date: 03/13/22 Principal diagnosis: MSSA bacteremia and right foot cellulitis Patient is a 61 year female with a past medical history significant for diabetes mellitus presented to hospital record nausea no vomiting noticed to have MSSA bacteremia secondary to the right foot plantar wound, patient did have a CT of the right foot completed 03/04/2022 with no evidence of any drainable abscess. On today's evaluation that is 03/06/2022, the patient is afebrile today, the patient denies having any chest pain shortness of breath or cough. The denies pain to the right foot , the patient denies nausea no vomiting and no diarrhea Objective - Vital Signs Vital signs: Vital Signs Temp 97.6 F 03/06/22 07:18 Pulse 80 03/06/22 07:18 Resp 19 03/06/22 07:18 BP 125/82 03/06/22 07:18 Pulse Ox 99 03/06/22 07:18 Intake & Output 03/05/22 03/06/22 03/06/22 18:59 06:59 18:59 Intake Total 1270 2750 180 Balance 1270 2750 180 Intake: Intake, IV Titration 1250 Amount Sodium Chloride 0.9% 1, 1200 000 ml @ 100 mls/hr IV . Q10H TIFFANIE Rx#:[id number] ceFAZolin 2 gm In Sodium 50 Chloride 0.9% 50 ml @ 100 mls/hr IVPB Q8HR TIFFANIE Rx# :[id number] Oral 1270 1500 180 Other: Voiding Method Toilet # Voids 3 5 # Bowel Movements 1 0 - Exam GENERAL DESCRIPTION: Middle-aged female lying in bed in no distress RESPIRATORY SYSTEM: Unlabored breathing , decreased breath sounds at bases HEART: S1 S2 regular rate and rhythm , ABDOMEN: Soft , no tenderness EXTREMITIES: No edema feet - Labs CBC & Chem 7: 03/06/22 10:33 03/06/22 10:33 Labs: Abnormal Lab Results - Last 24 Hours (Table) 03/05/22 03/05/22 03/06/22 Range/Units 16:36 20:30 06:08 RBC (3.80-5.40) m/uL Hgb (11.4-16.0) gm/dL Hct (34.0-46.0) % Lymphocytes # (1.0-4.8) k/uL PT 24.2 H (9.0-12.0) sec INR 2.4 H (<1.2) Sodium (137-145) mmol/L Carbon Dioxide (22-30) mmol/L Glucose (74-99) mg/dL POC Glucose (mg/dL) 148 H 147 H (75-99) mg/dL Calcium (8.4-10.2) mg/dL AST (14-36) U/L ALT (4-34) U/L Alkaline Phosphatase (38-126) U/L Total Protein (6.3-8.2) g/dL Albumin (3.5-5.0) g/dL 03/06/22 03/06/22 03/06/22 Range/Units 06:43 08:23 10:33 RBC 3.24 L (3.80-5.40) m/uL Hgb 9.6 L (11.4-16.0) gm/dL Hct 28.8 L (34.0-46.0) % Lymphocytes # 0.4 L (1.0-4.8) k/uL PT (9.0-12.0) sec INR (<1.2) Sodium (137-145) mmol/L Carbon Dioxide (22-30) mmol/L Glucose (74-99) mg/dL POC Glucose (mg/dL) 64 L 70 L (75-99) mg/dL Calcium (8.4-10.2) mg/dL AST (14-36) U/L ALT (4-34) U/L Alkaline Phosphatase (38-126) U/L Total Protein (6.3-8.2) g/dL Albumin (3.5-5.0) g/dL 03/06/22 03/06/22 Range/Units 10:33 11:30 RBC (3.80-5.40) m/uL Hgb (11.4-16.0) gm/dL Hct (34.0-46.0) % Lymphocytes # (1.0-4.8) k/uL PT (9.0-12.0) sec INR (<1.2) Sodium 133 L (137-145) mmol/L Carbon Dioxide 21 L (22-30) mmol/L Glucose 104 H (74-99) mg/dL POC Glucose (mg/dL) 101 H (75-99) mg/dL Calcium 7.9 L (8.4-10.2) mg/dL AST 109 H (14-36) U/L ALT 58 H (4-34) U/L Alkaline Phosphatase 436 H (38-126) U/L Total Protein 5.5 L (6.3-8.2) g/dL Albumin 2.9 L (3.5-5.0) g/dL Microbiology - Last 24 Hours (Table) 03/03/22 14:10 Blood Culture Gram Stain - Preliminary Blood Blood Culture - Preliminary Presumptive Staph aureus 03/02/22 17:53 Blood Culture Gram Stain - Final Blood Blood Culture - Final Staphylococcus aureus 03/02/22 17:38 Blood Culture Gram Stain - Final Blood Blood Culture - Final Staphylococcus aureus 03/04/22 12:37 Blood Culture Gram Stain - Preliminary Blood Assessment and Plan (1) Pyrexia Current Visit: Yes Status: Acute Code(s): R50.9 - FEVER, UNSPECIFIED SNOMED Code(s): 886480562 Plan: 1patient presented to hospital with mental status changes fever and this patient did have a nausea and vomiting now with evidence of gram-positive bacteremia source likely right foot infection was apparently the patient did have a cut few days ago the area slightly fluctuant concerning for possible abscess and likely the source of her infection. 2blood cultures are still positive and blood cultures will be repeated to document clearance of bacteremia, echocardiogram has been ordered results of the followed 3CT of the right foot to make did not show any evidence of any abscess 4patient to continue with cefazolin 2 g every 8 hours and monitor clinical course closely has been Time with Patient: Less than 30
[2022-03-07] MEDS: SODIUM CHLORIDE 0.9% 1,000 ML IV SCH ×2 (05:06→16:46)
[2022-03-07 05:08] LABS: INR 3.7 (<1.2); Prothrombin Time 36.6 sec (9.0-12.0)
[2022-03-07] MEDS: LEVOTHYROXINE 125 MCG TAB PO SCH (05:38)
[2022-03-07 06:55] LABS: Glucose,Whole Blood 120 mg/dL (75-99)
[2022-03-07] MEDS: INSULIN ASPART (NovoLOG) 100 UNIT/ML VIAL SQ SCH ×3 (07:13→16:59)
[2022-03-07 09:17] LABS: HCT 23.9 % (37.2-46.3); HGB 7.7 g/dL (12.0-15.0); MCH 28.3 pg (27.0-32.0); MCHC 32.2 g/dL (32.0-37.0); MCV 87.9 fL (80.0-97.0); Mean Platelet Volume 9.9 fL (9.5-12.2); NRBC Per 100 WBC 0 /100 WBCS (0.0-0.0); Platelet Count 210 X 10*3/uL (140-440); RBC 2.72 X 10*6/uL (4.10-5.20); RDW 13.9 % (11.5-14.5); WBC 9.57 X 10*3/uL (4.50-10.00)
[2022-03-07] MEDS: INSULIN DETEMIR (LEVEMIR) 100 UNIT/ML SYR SQ SCH ×2 (09:38→21:14)
[2022-03-07 09:39] LABS: African American GFR (CKD) 109.9 (60.0-200.0); Albumin/Globulin Ratio 1.36 (1.60-3.17); BUN/Creat Ratio 13.43 Ratio (12.00-20.00); Blood Urea Nitrogen 9.4 mg/dL (9.0-27.0); Calcium 7.8 mg/dL (8.7-10.3); Globulin 2.2 g/dL (1.6-3.3); Non-African American GFR(CKD) 94.8 (60.0-200.0); Potassium 3.8 mmol/L (3.5-5.5); Total Bilirubin 0.3 mg/dL (0.30-1.20); Total Protein 5.2 g/dL (6.2-8.2)
[2022-03-07] MEDS: FAMOTIDINE 20 MG TAB PO SCH (09:40)
[2022-03-07] MEDS: traMADol 50 MG TAB PO SCH ×3 (09:40→21:14)
[2022-03-07] MEDS: ATORVASTATIN 80 MG TAB PO SCH (09:40)
[2022-03-07] MEDS: lisinopriL 5 MG TAB PO SCH (09:40)
[2022-03-07] MEDS: VENLAFAXINE HCL ER 150 MG CAP PO SCH (09:40)
[2022-03-07] MEDS: METOPROLOL SUCCINATE (ER) 100 MG TAB.ER.24H PO SCH (09:41)
[2022-03-07] MEDS: ACETAMINOPHEN TAB 325 MG TAB PO PRN ×2 (09:47→16:25)
--- NOTE | 2022-03-07 09:53 | ECHOF ---
Referral Reason: MEASUREMENTS -------- HEIGHT: 162.6 cm WEIGHT: 99.8 kg BP: RVIDd: 3.4 cm (< 3.3) IVSd: 1.2 cm (0.6 - 1.1) LVIDd: 5.1 cm (3.9 - 5.3) LVPWd: 1.2 cm (0.6 - 1.1) IVSs: 2.0 cm LVIDs: 2.6 cm LVPWs: 2.2 cm Ao Diam: 3.3 cm (2.0 - 3.7) AV Cusp: 2.3 cm (1.5 - 2.6) LA Diam: 3.6 cm (2.7 - 3.8) MV EXCURSION: 20.477 mm (> 18.000) MV EF SLOPE: 65 mm/s (70 - 150) EPSS: 0.7 cm MV E Lance: 1.26 m/s MV DecT: 162 ms MV A Lance: 0.50 m/s MV E/A Ratio: 2.50 AV maxP.00 mmHg AV meanP.08 mmHg AR PHT: 433 ms RAP: 5.00 mmHg RVSP: 44.50 mmHg FINDINGS -------- This was a technically difficult study with suboptimal views. The left ventricular size is normal. Left ventricular wall thickness is normal. Overall left vent ricular systolic function is normal with, an EF between 55 - 60 %. Normal LAP. Grade 1 Diastolic Dy sfunction. The right ventricle is mildly enlarged. The left atrial size is normal. Normal LA size by volume 22+/-6 ml/m2. The right atrial size is normal. xx ml of Lumason was utilized for enhancement of images. Trace amount of aortic regurgitation. Peak/mean gradient across the Aortic Valve is 37.00mmHg / 25 .08mmHg. Normally functioning mechanical prosthetic valve. The mitral valve is normal. Mild mitral regurgitation is present. The tricuspid valve appears structurally normal. Mild tricuspid regurgitation present. There is m ild pulmonary hypertension. The right ventricular systolic pressure, as measured by Doppler, is 44. 50mmHg. There is no pulmonic regurgitation present. The aortic root size is normal. IVC Not well visulized. There is no pericardial effusion. CONCLUSIONS -------- 1. The left ventricular size is normal. 2. Left ventricular wall thickness is normal. 3. Overall left ventricular systolic function is normal with, an EF between 55 - 60 %. 4. Normal LAP. Grade 1 Diastolic Dysfunction. 5. The right ventricle is mildly enlarged. 6. Trace amount of aortic regurgitation. 7. Peak/mean gradient across the Aortic Valve is 37.00mmHg / 25.08mmHg. 8. Normally functioning mechanical prosthetic valve. 9. Mild mitral regurgitation is present. 10. Mild tricuspid regurgitation present. 11. There is mild pulmonary hypertension. 12. The right ventricular systolic pressure, as measured by Doppler, is 44.50mmHg. 13. There is no pericardial effusion. HEAD WAITER: Kirsten Parra RDCS
[2022-03-07 11:00] LABS: Acanthocytes 2+; Lymphocytes # (M) 0.38 X 10*3/uL (0.90-5.00); Metamyelocytes % 2 % (0-0); Microcytosis (M) 2+; Monocytes # (M) 0.57 X 10*3/uL (0.20-1.00); Neutrophils # (M) 8.23 X 10*3/uL (2.00-8.90); Neutrophils % (M) 86 %
[2022-03-07 11:10] LABS: Glucose,Whole Blood 190 mg/dL (75-99)
[2022-03-07] MEDS: ALBUTEROL NEBULIZED 2.5 MG/3 ML INHALATION PRN (11:23)
--- NOTE | 2022-03-07 11:33 | P.PN ---
Subjective Progress Note Date: 03/06/22 Linda Isaac, is a 61-year-old female who presented to [facility] emergency room with a chief complaint of fever or chills and mental status changes. She was evaluated in the emergency room vital examination on presentation revealed a temperature of 105.7 pulse 116 respiration 18 and blood pressure 128/78 pulse ox 94% on room air Laboratory data revealed a white blood count of 5.4 hemoglobin 12.1 platelet count 204 sodium 127 potassium 4.3 chloride 95 CO2 24 BUN 17 creatinine 1.12 AST elevated at 72 ALT 36 influenza A and B titers and COVID-19 PCR were negative, urine analysis was not done, INR was 2.2 Testing in the emergency room revealed chest x-ray done in the emergency room revealed scattered opacities which may represent atypical pneumonia, computed tomography scan of the brain done in the emergency room without contrast revealed no acute intracranial process, computed tomography scan of the abdomen and pelvis done in the emergency room revealed a right thigh enlarged lymph node, bladder wall thickening, and hepatic steatosis. Patient was admitted to medical floor for further evaluation and treatment. She was started on IV antibiotic Rocephin and Zithromax in the emergency room for presumed pneumonia, shortly after admission patient had positive blood culture for gram-negative bacilli and IV antibiotics were changed to Zosyn and Levaquin, infectious disease consultation was requested. Past medical history is significant for history of aortic valve replacement with mechanical valve patient is maintained on Coumadin, history of morbid obesity, history of obstructive sleep apnea, history of hypothyroidism, history of bipolar disorder with schizoaffective disorder, history of hypertension, history of hyperlipidemia, and history of diabetes mellitus. On review of systems at this time patient is alert and oriented 3 in no apparent distress she is complaining of episodes on and off of shaking chills, otherwise she denies any complaints at this time there is no headache or dizziness no chest pain no shortness of breath no cough no nausea or vomiting no abdominal pain no diarrhea and no urinary symptoms. On 03/04/2022 patient is alert and oriented 3. CT of right foot ordered per infectious disease to rule out abscess. Patient is positive for bacteremia remains on IV antibiotics. Patient stating that she would like to go home explained patient that she had positive blood culture requiring IV antibiotics. Lab work currently pending. Current vitals temp 98.6, heart rate 75, respiratory rate 17, blood pressure 100/65 patient sating 96% on room air On 03/05/2022 patient is alert and oriented 3. Patient is positive for bacteremia remains on IV antibiotics. Patient stating that she would like to go home explained patient that she had positive blood culture requiring IV antibiotics. Lab work currently pending. Current vitals temp 98.6, heart rate 70, respiratory rate 18, blood pressure 108/70 patient sating 96% on room air On 03/06/2022 patient is alert and oriented 3 patient having increased wheezing will order chest x-ray, BNP and D echo. Patient remains on IV antibiotics repeat blood cultures have been ordered Objective - Vital Signs Vital signs: Vital Signs Temp 97.4 F L 03/06/22 14:06 Pulse 87 03/06/22 14:06 Resp 19 03/06/22 14:06 BP 122/74 03/06/22 14:06 Pulse Ox 94 L 03/06/22 14:06 Intake & Output 03/05/22 03/06/22 03/06/22 18:59 06:59 18:59 Intake Total 1270 2750 180 Balance 1270 2750 180 Intake: Intake, IV Titration 1250 Amount Sodium Chloride 0.9% 1, 1200 000 ml @ 100 mls/hr IV . Q10H [facility] Rx#:[id number] ceFAZolin 2 gm In Sodium 50 Chloride 0.9% 50 ml @ 100 mls/hr IVPB Q8HR [facility] Rx# :[id number] Oral 1270 1500 180 Other: Voiding Method Toilet # Voids 3 5 5 # Bowel Movements 1 0 1 - Exam In general patient is alert and oriented x 3 in no distress HEENT head normocephalic and atraumatic Neck is supple no JVD no goiter no lymphadenopathy no carotid bruit Chest examination reveals a scattered crackles bilaterally no wheezing Cardiac exam reveals regular heart sounds S1 and S2 with stools over 6 systolic murmur in the right sternal border Abdomen is soft nontender no organomegaly with normal bowel sounds Extremity exam reveals no edema no cyanosis or clubbing Neurological examination reveals no gross focal deficits - Labs CBC & Chem 7: 03/07/22 04:40 03/07/22 04:40 Labs: Abnormal Lab Results - Last 24 Hours (Table) 04/11/22 04/12/22 04/12/22 Range/Units 20:30 06:08 06:43 RBC (3.80-5.40) m/uL Hgb (11.4-16.0) gm/dL Hct (34.0-46.0) % Lymphocytes # (1.0-4.8) k/uL PT 24.2 H (9.0-12.0) sec INR 2.4 H (<1.2) Sodium (137-145) mmol/L Carbon Dioxide (22-30) mmol/L Glucose (74-99) mg/dL POC Glucose (mg/dL) 147 H 64 L (75-99) mg/dL Calcium (8.4-10.2) mg/dL AST (14-36) U/L ALT (4-34) U/L Alkaline Phosphatase (38-126) U/L Total Protein (6.3-8.2) g/dL Albumin (3.5-5.0) g/dL 03/06/22 03/06/22 03/06/22 Range/Units 08:23 10:33 10:33 RBC 3.24 L (3.80-5.40) m/uL Hgb 9.6 L (11.4-16.0) gm/dL Hct 28.8 L (34.0-46.0) % Lymphocytes # 0.4 L (1.0-4.8) k/uL PT (9.0-12.0) sec INR (<1.2) Sodium 133 L (137-145) mmol/L Carbon Dioxide 21 L (22-30) mmol/L Glucose 104 H (74-99) mg/dL POC Glucose (mg/dL) 70 L (75-99) mg/dL Calcium 7.9 L (8.4-10.2) mg/dL AST 109 H (14-36) U/L ALT 58 H (4-34) U/L Alkaline Phosphatase 436 H (38-126) U/L Total Protein 5.5 L (6.3-8.2) g/dL Albumin 2.9 L (3.5-5.0) g/dL 03/06/22 03/06/22 Range/Units 11:30 16:32 RBC (3.80-5.40) m/uL Hgb (11.4-16.0) gm/dL Hct (34.0-46.0) % Lymphocytes # (1.0-4.8) k/uL PT (9.0-12.0) sec INR (<1.2) Sodium (137-145) mmol/L Carbon Dioxide (22-30) mmol/L Glucose (74-99) mg/dL POC Glucose (mg/dL) 101 H 119 H (75-99) mg/dL Calcium (8.4-10.2) mg/dL AST (14-36) U/L ALT (4-34) U/L Alkaline Phosphatase (38-126) U/L Total Protein (6.3-8.2) g/dL Albumin (3.5-5.0) g/dL Microbiology - Last 24 Hours (Table) 03/05/22 14:06 Blood Culture - Preliminary Blood No Growth after 24 hours 03/03/22 14:10 Blood Culture Gram Stain - Preliminary Blood Blood Culture - Preliminary Presumptive Staph aureus 03/02/22 17:53 Blood Culture Gram Stain - Final Blood Blood Culture - Final Staphylococcus aureus 03/02/22 17:38 Blood Culture Gram Stain - Final Blood Blood Culture - Final Staphylococcus aureus Assessment and Plan Plan: 1. Sepsis, with positive blood culture 2. Possible underlying pneumonia 3. Hyponatremia on presentation 4. Mental status changes on presentation likely related to sepsis and elevated temperature, improving 5. Underlying history of insulin-dependent diabetes mellitus 6. Underlying history of aortic valve replacement with mechanical valve patient is maintained on Coumadin 7. Underlying history of hypertension 8. Underlying history of hyperlipidemia 9. Underlying history of hypothyroidism 10. Underlying history of bipolar disorder, and schizoaffective disorder At this time patient is admitted to medical floor She is maintained on IV antibiotics, initially patient was given Rocephin and Zithromax in the emergency room for presumed pneumonia. Positive blood cultures at night when he first reported as gram-negative bacilli, antibiotics were changed to IV Zosyn and IV Levaquin. At this time blood cultures are reported as gram-positive cocci in clusters, will continue with IV Zosyn Will discontinue Levaquin and add IV vancomycin pharmacy to dose. Awaiting urine analysis and will urine culture results Infectious disease consultation was requested CT of right foot ordered per infectious disease Coumadin was resumed will monitor INR daily, goal 2.5-3.5 due to mechanical valve
--- NOTE | 2022-03-07 11:44 | P.PN ---
Subjective Progress Note Date: 03/07/22 Linda Isaac, is a 61-year-old female who presented to [facility] emergency room with a chief complaint of fever or chills and mental status changes. She was evaluated in the emergency room vital examination on presentation revealed a temperature of 105.7 pulse 116 respiration 18 and blood pressure 128/78 pulse ox 94% on room air Laboratory data revealed a white blood count of 5.4 hemoglobin 12.1 platelet count 204 sodium 127 potassium 4.3 chloride 95 CO2 24 BUN 17 creatinine 1.12 AST elevated at 72 ALT 36 influenza A and B titers and COVID-19 PCR were negative, urine analysis was not done, INR was 2.2 Testing in the emergency room revealed chest x-ray done in the emergency room revealed scattered opacities which may represent atypical pneumonia, computed tomography scan of the brain done in the emergency room without contrast revealed no acute intracranial process, computed tomography scan of the abdomen and pelvis done in the emergency room revealed a right thigh enlarged lymph node, bladder wall thickening, and hepatic steatosis. Patient was admitted to medical floor for further evaluation and treatment. She was started on IV antibiotic Rocephin and Zithromax in the emergency room for presumed pneumonia, shortly after admission patient had positive blood culture for gram-negative bacilli and IV antibiotics were changed to Zosyn and Levaquin, infectious disease consultation was requested. Past medical history is significant for history of aortic valve replacement with mechanical valve patient is maintained on Coumadin, history of morbid obesity, history of obstructive sleep apnea, history of hypothyroidism, history of bipolar disorder with schizoaffective disorder, history of hypertension, history of hyperlipidemia, and history of diabetes mellitus. On review of systems at this time patient is alert and oriented 3 in no apparent distress she is complaining of episodes on and off of shaking chills, otherwise she denies any complaints at this time there is no headache or dizziness no chest pain no shortness of breath no cough no nausea or vomiting no abdominal pain no diarrhea and no urinary symptoms. On 03/04/2022 patient is alert and oriented 3. CT of right foot ordered per infectious disease to rule out abscess. Patient is positive for bacteremia remains on IV antibiotics. Patient stating that she would like to go home explained patient that she had positive blood culture requiring IV antibiotics. Lab work currently pending. Current vitals temp 98.6, heart rate 75, respiratory rate 17, blood pressure 100/65 patient sating 96% on room air On 03/05/2022 patient is alert and oriented 3. Patient is positive for bacteremia remains on IV antibiotics. Patient stating that she would like to go home explained patient that she had positive blood culture requiring IV antibiotics. Lab work currently pending. Current vitals temp 98.6, heart rate 70, respiratory rate 18, blood pressure 108/70 patient sating 96% on room air On 03/06/2022 patient is alert and oriented 3 patient having increased wheezing will order chest x-ray, BNP and D echo. Patient remains on IV antibiotics repeat blood cultures have been ordered On 03/07/2018 patient is alert and oriented 3 patient remains on IV septal is Avinash. 2-D echo completed showing EF of 55-60%. Liver enzymes continue to be elevated will DC Lipitor in order liver ultrasound. This time patient denies chest pain or shortness of breath. Patient denies nausea vomiting or diarrhea. Patient denies any urinary burning or frequency Objective - Vital Signs Vital signs: Vital Signs Temp 98.0 F 03/07/22 07:54 Pulse 91 03/07/22 11:35 Resp 18 03/07/22 07:54 BP 132/77 03/07/22 07:54 Pulse Ox 96 03/07/22 07:54 Intake & Output 03/06/22 03/07/22 03/07/22 18:59 06:59 18:59 Intake Total 180 1200 Balance 180 1200 Intake: Intake, IV Titration 1200 Amount Sodium Chloride 0.9% 1, 1100 000 ml @ 100 mls/hr IV . Q10H [facility] Rx#:[id number] ceFAZolin 2 gm In Sodium 100 Chloride 0.9% 50 ml @ 100 mls/hr IVPB Q8HR [facility] Rx# :[id number] Oral 180 Other: Voiding Method Toilet # Voids 5 1 # Bowel Movements 1 - Exam In general patient is alert and oriented x 3 in no distress HEENT head normocephalic and atraumatic Neck is supple no JVD no goiter no lymphadenopathy no carotid bruit Chest examination reveals a scattered crackles bilaterally no wheezing Cardiac exam reveals regular heart sounds S1 and S2 with stools over 6 systolic murmur in the right sternal border Abdomen is soft nontender no organomegaly with normal bowel sounds Extremity exam reveals no edema no cyanosis or clubbing Neurological examination reveals no gross focal deficits - Labs CBC & Chem 7: 03/07/22 04:40 03/07/22 04:40 Labs: Abnormal Lab Results - Last 24 Hours (Table) 03/06/22 03/06/22 03/07/22 Range/Units 16:32 20:53 04:40 RBC (4.10-5.20) X 10*6/uL Hgb (12.0-15.0) g/dL Hct (37.2-46.3) % Metamyelocytes % (0-0) % Lymphocytes # (Manual) (0.90-5.00) X 10*3/uL PT 36.6 H (9.0-12.0) sec INR 3.7 H (<1.2) Sodium (135-145) mmol/L Glucose (70-110) mg/dL POC Glucose (mg/dL) 119 H 128 H (75-99) mg/dL Calcium (8.7-10.3) mg/dL AST (13-35) U/L ALT (8-44) U/L Alkaline Phosphatase (41-126) U/L Total Protein (6.2-8.2) g/dL Albumin (3.8-4.9) g/dL Albumin/Globulin Ratio (1.60-3.17) g/dL 03/07/22 03/07/22 03/07/22 Range/Units 04:40 04:40 06:53 RBC 2.72 L (4.10-5.20) X 10*6/uL Hgb 7.7 L (12.0-15.0) g/dL Hct 23.9 L (37.2-46.3) % Metamyelocytes % 2 H (0-0) % Lymphocytes # (Manual) 0.38 L (0.90-5.00) X 10*3/uL PT (9.0-12.0) sec INR (<1.2) Sodium 132 L (135-145) mmol/L Glucose 114 H (70-110) mg/dL POC Glucose (mg/dL) 120 H (75-99) mg/dL Calcium 7.8 L (8.7-10.3) mg/dL AST 69 H (13-35) U/L ALT 61 H (8-44) U/L Alkaline Phosphatase 509 H (41-126) U/L Total Protein 5.2 L (6.2-8.2) g/dL Albumin 3.0 L (3.8-4.9) g/dL Albumin/Globulin Ratio 1.36 L (1.60-3.17) g/dL 03/07/22 Range/Units 11:09 RBC (4.10-5.20) X 10*6/uL Hgb (12.0-15.0) g/dL Hct (37.2-46.3) % Metamyelocytes % (0-0) % Lymphocytes # (Manual) (0.90-5.00) X 10*3/uL PT (9.0-12.0) sec INR (<1.2) Sodium (135-145) mmol/L Glucose (70-110) mg/dL POC Glucose (mg/dL) 190 H (75-99) mg/dL Calcium (8.7-10.3) mg/dL AST (13-35) U/L ALT (8-44) U/L Alkaline Phosphatase (41-126) U/L Total Protein (6.2-8.2) g/dL Albumin (3.8-4.9) g/dL Albumin/Globulin Ratio (1.60-3.17) g/dL Microbiology - Last 24 Hours (Table) 03/06/22 06:08 Blood Culture - Preliminary Blood No Growth after 24 hours 03/05/22 14:06 Blood Culture - Preliminary Blood No Growth after 24 hours 03/03/22 14:10 Blood Culture Gram Stain - Preliminary Blood Blood Culture - Preliminary Presumptive Staph aureus Assessment and Plan Plan: 1. Sepsis, with positive blood culture 2. Possible underlying pneumonia 3. Hyponatremia on presentation 4. Mental status changes on presentation likely related to sepsis and elevated temperature, improving 5. Underlying history of insulin-dependent diabetes mellitus 6. Underlying history of aortic valve replacement with mechanical valve patient is maintained on Coumadin 7. Underlying history of hypertension 8. Underlying history of hyperlipidemia 9. Underlying history of hypothyroidism 10. Underlying history of bipolar disorder, and schizoaffective disorder 11. Elevated liver enzymes. Will order liver ultrasound and Lipitor DC'd 12. Elevated BNP. 2-D echo completed showing EF of 50-55% will consult cardiology services At this time patient is admitted to medical floor She is maintained on IV antibiotics, initially patient was given Rocephin and Zithromax in the emergency room for presumed pneumonia. Positive blood cultures at night when he first reported as gram-negative bacilli, antibiotics were changed to IV Zosyn and IV Levaquin. At this time blood cultures are reported as gram-positive cocci in clusters, will continue with IV Zosyn Will discontinue Levaquin and add IV vancomycin pharmacy to dose. Awaiting urine analysis and will urine culture results Infectious disease consultation was requested Coumadin was resumed will monitor INR daily, goal 2.5-3.5 due to mechanical valve
--- NOTE | 2022-03-07 14:32 | US ---
EXAMINATION TYPE: US liver DATE OF EXAM: 03/07/2022 COMPARISON: NONE CLINICAL HISTORY: elevated liver enzyme. EXAM MEASUREMENTS: Liver Length: 19.3 cm Gallbladder Wall: 0.2 cm CBD: 0.6 cm Right Kidney: 12.3 x 5.6 x 6.1 cm Only supine imaging performed, patient unable to roll up due to pain on left side. Pancreas: visualized portions wnl Liver: wnl Gallbladder: No stones seen Evidence for sonographic Rapp's sign: No CBD: wnl Right Kidney: No hydronephrosis or masses seen IMPRESSION: 1. No suspicious ultrasound abnormality right upper quadrant ultrasound
[2022-03-07 16:57] LABS: Glucose,Whole Blood 121 mg/dL (75-99)
[2022-03-07] MEDS ORDERED: WARFARIN 0.5 MG TAB PO ONE (18:00)
[2022-03-07 21:09] LABS: Glucose,Whole Blood 143 mg/dL (75-99)
[2022-03-07] MEDS: OLANZapine 10 MG TAB PO SCH (21:14)
[2022-03-08] MEDS: SODIUM CHLORIDE 0.9% 1,000 ML IV SCH ×3 (01:22→18:08)
[2022-03-08] MEDS: LEVOTHYROXINE 125 MCG TAB PO SCH (05:33)
[2022-03-08 05:48] LABS: INR 3.5 (<1.2); Prothrombin Time 34.8 sec (9.0-12.0)
[2022-03-08 07:07] LABS: Glucose,Whole Blood 91 mg/dL (75-99)
[2022-03-08] MEDS: INSULIN ASPART (NovoLOG) 100 UNIT/ML VIAL SQ SCH ×3 (07:52→17:09)
[2022-03-08] MEDS: ACETAMINOPHEN TAB 325 MG TAB PO PRN ×2 (08:05→21:35)
[2022-03-08] MEDS: INSULIN DETEMIR (LEVEMIR) 100 UNIT/ML SYR SQ SCH ×2 (08:05→20:57)
[2022-03-08] MEDS: VENLAFAXINE HCL ER 150 MG CAP PO SCH (08:07)
[2022-03-08] MEDS: lisinopriL 5 MG TAB PO SCH (08:08)
[2022-03-08] MEDS: traMADol 50 MG TAB PO SCH ×3 (08:08→21:34)
[2022-03-08] MEDS: METOPROLOL SUCCINATE (ER) 100 MG TAB.ER.24H PO SCH (08:08)
[2022-03-08] MEDS: FAMOTIDINE 20 MG TAB PO SCH (08:09)
[2022-03-08 09:27] LABS: HCT 23.6 % (37.2-46.3); HGB 7.9 g/dL (12.0-15.0); MCH 29.3 pg (27.0-32.0); MCHC 33.5 g/dL (32.0-37.0); MCV 87.4 fL (80.0-97.0); Mean Platelet Volume 9.8 fL (9.5-12.2); NRBC Per 100 WBC 0.4 /100 WBCS (0.0-0.0); Platelet Count 228 X 10*3/uL (140-440); WBC 8.04 X 10*3/uL (4.50-10.00)
[2022-03-08 09:34] LABS: African American GFR (CKD) 115.6 (60.0-200.0); Albumin 2.9 g/dL (3.8-4.9); Albumin/Globulin Ratio 1.32 (1.60-3.17); Anion Gap 9.6 mmol/L (10.00-18.00); BUN/Creat Ratio 11.83 Ratio (12.00-20.00); Blood Urea Nitrogen 7.1 mg/dL (9.0-27.0); Carbon Dioxide 24.4 mmol/L (20.0-27.5); Globulin 2.2 g/dL (1.6-3.3); Non-African American GFR(CKD) 99.8 (60.0-200.0); Potassium 3.9 mmol/L (3.5-5.5); Total Bilirubin 0.3 mg/dL (0.30-1.20); Total Protein 5.1 g/dL (6.2-8.2)
[2022-03-08 10:11] LABS: Basophils # (M) 0 X 10*3/uL (0.00-0.10); Eosinophils # (M) 0 X 10*3/uL (0.04-0.35); Lymphocytes # (M) 0.32 X 10*3/uL (0.90-5.00); Metamyelocytes % 1 % (0-0); Microcytosis (M) 2+; Myelocytes % 3 % (0-0); Neutrophils # (M) 6.99 X 10*3/uL (2.00-8.90); Neutrophils % (M) 87 %
[2022-03-08 11:12] LABS: Glucose,Whole Blood 157 mg/dL (75-99)
--- NOTE | 2022-03-08 12:12 | P.CRDCN ---
History of Present Illness History of present illness: HISTORY OF PRESENTING ILLNESS This is a pleasant 61-year-old with past medical history significant for diabetes mellitus type 2, hypertension, COPD, hyperlipidemia, mechanical aortic valve replacement 2012, bipolar disorder and osteoarthritis. She normally follows with Dr. Draper. She presented for 07/14/2022 secondary to reported altered mental status. She states she had been feeling fine and then somehow fell and found herself between a dresser. She denied any preceding chest pain or shortness breath or palpitations. She had workup which showed INR of 2.2 chest x-ray concerning for atypical pneumonia CT brain showed no acute process. Per patient since that time she has been having left-sided weakness however this has been somewhat improving. Patient was admitted to the hospital and found to have MSSA bacteremia with infectious disease consult. He was found to have per sistent bacteremia and therefore continued on antibiotics and echocardiogram performed 03/07/2022 which showed EF 55-60% normally functioning mechanical prosthetic valve with a peak velocity of 37 and a mean gradient of 25 RVSP of 44. Cardiology was consulted for elevated BNP. She does have chronic dyspnea and was feeling somewhat short of breath yesterday however today states she feels back to her baseline. ProBNP 6630. Source of MSSA felt to be a foot infection. REVIEW OF SYSTEMS At the time of my exam: CONSTITUTIONAL: Denies fever or chills. CARDIOVASCULAR: Denies chest pain, +shortness of breath, no orthopnea, PND or palpitations. RESPIRATORY: Denies cough. GASTROINTESTINAL: Denies abdominal pain, diarrhea, constipation, nausea or vomiting. MUSCULOSKELETAL: Denies myalgias. NEUROLOGIC: Denies numbness, tingling or weakness. ENDOCRINE: Denies fatigue, weight change, polydipsia or polyurina. GENITOURINARY: Denies burning, hematuria or urgency with micturation. HEMATOLOGIC: Denies history of anemia or bleeding. PHYSICAL EXAMINATION Vital signs reviewed. CONSTITUTIONAL: No apparent distress. HEENT: Head is normocephalic. Pupils are equal, round. Sclerae anicteric. Mucous membranes of the mouth are moist. No JVD. No carotid bruit. CHEST EXAMINATION: Lungs are clear to auscultation. No chest wall tenderness is noted on palpation or with deep breathing. HEART EXAMINATION: Regular rate and rhythm. S1, S2 heard. +2/6 systolic murmur, no gallops or rub. ABDOMEN: Soft, nontender. Positive bowel sounds. EXTREMITIES: 2+ peripheral pulses, no lower extremity edema and no calf tenderness. NEUROLOGIC EXAMINATION: Patient is awake, alert and oriented x3. ASSESSMENT 1. MSSA bacteremia 2. Shortness breath, chronic does not appear volume overloaded on exam 3. Elevated proBNP, chronically elevated secondary to diastolic dysfunction. Grade 1 diastolic dysfunction noted on most recent echo 4. Aortic stenosis status post mechanical aortic valve replacement 5. Left-sided weakness since her fall. 6. Fall with altered mental status. Appears most likely related to sepsis 7. Sepsis PLAN Patient's main presentation of altered mental status and a fall however somewhat concerning as she did have left-sided weakness. If there is some concern of a stroke and an embolic etiology would recommend BLANCA to further evaluate the mechanical aortic valve. Her INR was 2.2 on presentation however also consideration of possible endocarditis with emboli. Continue with antibiotics for now and infectious disease recommendations. Patient has chronically elevated proBNP and chronic shortness breath. Currently she appears euvolemic and recent echo did showed grade 1 diastolic dysfunction. Continue with current supportive care. Further recommendations to follow. Past Medical History Past Medical History: Diabetes Mellitus, GERD/Reflux, Hyperlipidemia, Hypertension, Pneumonia, Sleep Apnea/CPAP/BIPAP, Thyroid Disorder Additional Past Medical History / Comment(s): IDDM type II, neuropathy bilateral feet, rheumatic fever at age 11yrs/scar tissue on valve, aortic valve replacement (mechanical), pt states she had a blood clot around aortic valve prior to surgery, POLLO but does not tolerate Cpap, constipation, L ovarian cyst, hypothyroid. History of Any Multi-Drug Resistant Organisms: None Reported Date of last positivie culture/infection: 2013 Past Surgical History: Appendectomy, Cardiac Valve Replacement, Secti on, Joint Replacement, Orthopedic Surgery Additional Past Surgical History / Comment(s): BLANCA, aortic valve replacement (mechanical), L total knee arthroplasty, L foot bunionectomy, EGDs, colonoscopy. Past Anesthesia/Blood Transfusion Reactions: Previous Problems w/ Anesthesia Additional Past Anesthesia/Blood Transfusion Reaction / Comment(s): Stopped breathing when a EGD was done Past Psychological History: Anxiety, Bipolar Additional Psychological History / Comment(s): Pt resides with her 2 children ages 15 and 19 yrs. She uses a cane to ambulate and occasionally a walker. 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 Smoking Status: Never smoker Past Alcohol Use History: Occasional Additional Past Alcohol Use History / Comment(s): Pt states she occasionally with have a couple beers on the weekend. She states she previously was a heavy beer drinker. Past Drug Use History: None Reported - Past Family History Father Additional Family Medical History / Comment(s): Bipolar and ETOH abuse Mother Additional Family Medical History / Comment(s): ETOH abuse Medications and Allergies Home Medications Medication Instructions Recorded Confirmed Type Ergocalciferol [Vitamin D2 (1250 1,250 mcg PO MO 02/02/21 03/02/22 History Mcg = 13141 Iu)] Metoprolol Succinate (ER) [Toprol 100 mg PO DAILY 02/02/21 03/02/22 History XL] OLANZapine [ZyPREXA] 20 mg PO HS 02/02/21 03/02/22 History Venlafaxine HCl [Effexor XR] 300 mg PO DAILY 02/02/21 03/02/22 History clonazePAM 1 mg PO BID PRN 02/02/21 03/02/22 History lisinopriL [Zestril] 5 mg PO DAILY 02/02/21 03/02/22 History Atorvastatin [Lipitor] 80 mg PO DAILY 02/07/21 03/02/22 History Empagliflozin [Jardiance] 10 mg PO DAILY 09/19/21 03/02/22 History traMADol HCL 50 mg PO TID 01/17/22 03/02/22 History Famotidine [Pepcid] 20 mg PO DAILY 03/02/22 03/02/22 History Insulin Aspart [NovoLOG Flexpen] 25 units SQ AC-TID 03/02/22 03/02/22 History Insulin Glargine,Hum.rec.anlog 35 unit SQ DAILY 03/02/22 03/02/22 History [Basaglar Kwikpen U-100] Insulin Glargine,Hum.rec.anlog 45 unit SQ HS 03/02/22 03/02/22 History [Basaglar Kwikpen U-100] Levothyroxine Sodium [Synthroid] 125 mcg PO DAILY 03/02/22 03/02/22 History Allergies Allergy/AdvReac Type Severity Reaction Status Date / Time codeine AdvReac Nausea & Verified 03/02/22 18:35 Vomiting Physical Exam Vitals: Vital Signs Temp Pulse Resp BP Pulse Ox 03/08/22 09:03 98.4 F 85 19 138/84 92 L 03/08/22 08:00 60 19 154/84 03/08/22 07:41 18 95 03/08/22 01:32 97.9 F 76 16 121/70 93 L 03/07/22 19:04 97.2 F L 76 16 114/63 95 03/07/22 14:00 98.5 F 69 18 124/78 100 Intake and Output 03/07/22 03/08/22 03/08/22 22:59 06:59 14:59 Intake Total 1080 1200 Balance 1080 1200 Intake: Intake, IV Titration 1200 Amount Sodium Chloride 0.9% 1, 1100 000 ml @ 100 mls/hr IV . Q10H [facility] Rx#:[id number] ceFAZolin 2 gm In Sodium 100 Chloride 0.9% 50 ml @ 100 mls/hr IVPB Q8HR [facility] Rx# :[id number] Oral 1080 Other: Voiding Method Toilet Toilet # Voids 3 1 1 # Bowel Movements 1 1 Results 03/08/22 05:23 03/08/22 05:23 Cardiac Enzymes 03/08/22 Range/Units 05:23 AST 50 H (13-35) U/L Coagulation 03/08/22 Range/Units 05:23 PT 34.8 H (9.0-12.0) sec CBC 03/08/22 Range/Units 05:23 WBC 8.04 (4.50-10.00) X 10*3/uL RBC 2.70 L (4.10-5.20) X 10*6/uL Hgb 7.9 L (12.0-15.0) g/dL Hct 23.6 L (37.2-46.3) % Plt Count 228 (140-440) X 10*3/uL Comprehensive Metabolic Panel 03/08/22 Range/Units 05:23 Sodium 139 (135-145) mmol/L Potassium 3.9 (3.5-5.5) mmol/L Chloride 105 (96-109) mmol/L Carbon Dioxide 24.4 (20.0-27.5) mmol/L BUN 7.1 L (9.0-27.0) mg/dL Creatinine 0.6 (0.6-1.5) mg/dL Glucose 88 (70-110) mg/dL Calcium 8.0 L (8.7-10.3) mg/dL AST 50 H (13-35) U/L ALT 49 H (8-44) U/L Alkaline Phosphatase 534 H (41-126) U/L Total Protein 5.1 L (6.2-8.2) g/dL Albumin 2.9 L (3.8-4.9) g/dL Current Medications Generic Name Dose Route Start Last Admin Trade Name Freq PRN Reason Stop Dose Admin Acetaminophen 650 mg 03/02/22 20:06 03/08/22 08:05 Acetaminophen Tab 325 Mg Tab PO 650 mg Q6HR PRN Administration Mild Pain or Fever > 100.5 Albuterol Sulfate 2.5 mg 03/06/22 10:24 03/07/22 11:23 Albuterol Nebulized 2.5 Mg/3 Ml INHALATION 2.5 mg RT-QID PRN Administration Shortness Of Breath Or Wheezing Alprazolam 0.25 mg 03/03/22 22:47 03/06/22 01:47 Alprazolam 0.25 Mg Tab PO 0.25 mg QID PRN Administration Anxiety Clonazepam 1 mg 03/02/22 23:10 03/03/22 17:12 Clonazepam 1 Mg Tab PO 1 mg BID PRN Administration Anxiety Famotidine 20 mg 03/03/22 09:00 03/08/22 08:09 Famotidine 20 Mg Tab PO 20 mg DAILY [facility] Administration Sodium Chloride 1,000 mls @ 100 mls/hr 03/02/22 20:15 03/08/22 05:34 Saline 0.9% IV 100 mls/hr .Q10H [facility] Administration Cefazolin Sodium 2 gm/ Sodium 50 mls @ 100 mls/hr 03/04/22 00:00 03/08/22 08:18 Chloride IVPB 100 mls/hr Q8HR [facility] Administration Protocol Ibuprofen 400 mg 03/02/22 20:06 03/04/22 23:08 Ibuprofen 400 Mg Tab PO 400 mg Q6HR PRN Administration Mild Pain or Fever > 100.5 Insulin Aspart 25 unit 03/03/22 07:30 03/08/22 07:52 Insulin Aspart (Novolog) 100 Unit/Ml Vial SQ Not Given AC-TID [facility] Insulin Detemir 35 unit 03/03/22 09:00 03/08/22 08:05 Insulin Detemir (Levemir) 100 Unit/Ml Syr SQ 35 unit DAILY [facility] Administration Insulin Detemir 45 unit 03/02/22 23:15 03/07/22 21:14 Insulin Detemir (Levemir) 100 Unit/Ml Syr SQ 45 unit HS [facility] Administration Levothyroxine Sodium 125 mcg 03/03/22 06:30 03/08/22 05:33 Levothyroxine 125 Mcg Tab PO 125 mcg DAILY@0630 [facility] Administration Lisinopril 5 mg 03/03/22 09:00 03/08/22 08:08 Lisinopril 5 Mg Tab PO 5 mg DAILY [facility] Administration Metoprolol Succinate 100 mg 03/03/22 09:00 03/08/22 08:08 Metoprolol Succinate (Er) 100 Mg Tab.Er.24h PO 100 mg DAILY [facility] Administration Miscellaneous Information 0 each 03/03/22 13:08 Warfarin Per Pharmacy MISCELLANE DIRECTED PRN PHARMACY DOSING WARFARIN Naloxone HCl 0.2 mg 03/02/22 20:06 Naloxone 0.4 Mg/Ml 1 Ml Vial IV Q2M PRN Opioid Reversal Olanzapine 20 mg 03/02/22 23:15 03/07/22 21:14 Olanzapine 10 Mg Tab PO 20 mg HS [facility] Administration Ondansetron HCl 4 mg 03/02/22 20:06 Ondansetron 4 Mg/2 Ml Vial IVP Q8HR PRN Nausea And Vomiting Tramadol HCl 50 mg 03/02/22 23:15 03/08/22 08:08 Tramadol 50 Mg Tab PO 50 mg TID [facility] Administration Venlafaxine HCl 300 mg 03/03/22 09:00 03/08/22 08:07 Venlafaxine Hcl Er 150 Mg Cap PO 300 mg DAILY [facility] Administration Warfarin Sodium 7.5 mg 03/08/22 18:00 Warfarin 7.5 Mg Tab PO 03/08/22 18:01 ONCE ONE Intake and Output 03/07/22 03/08/22 03/08/22 22:59 06:59 14:59 Intake Total 1080 1200 Balance 1080 1200 Intake: Intake, IV Titration 1200 Amount Sodium Chloride 0.9% 1, 1100 000 ml @ 100 mls/hr IV . Q10H [facility] Rx#:[id number] ceFAZolin 2 gm In Sodium 100 Chloride 0.9% 50 ml @ 100 mls/hr IVPB Q8HR [facility] Rx# :[id number] Oral 1080 Other: Voiding Method Toilet Toilet # Voids 3 1 1 # Bowel Movements 1 1 03/08/22 05:23 03/08/22 05:23
[2022-03-08] MEDS: PANTOPRAZOLE 40 MG/10 ML VIAL IVP SCH (13:11)
[2022-03-08 13:49] LABS: Glucose,Whole Blood 123 mg/dL (75-99)
[2022-03-08 14:32] VITALS: BMI 37.8
[2022-03-08 16:06] LABS: Glucose,Whole Blood 47 mg/dL (75-99)
[2022-03-08 16:17] LABS: Glucose,Whole Blood 51 mg/dL (75-99)
--- NOTE | 2022-03-08 16:34 | XR ---
EXAMINATION TYPE: XR ribs LT DATE OF EXAM: 03/08/2022 3:15 PM INDICATION: Patient age:Female; 61 years old; Reason for study: fall injury; COMPARISON: Chest radiograph 03/06/2022. TECHNIQUE: Frontal and lateral oblique views of the left ribs FINDINGS: The ribs have a normal appearance. No evidence of fracture. Overall, the lungs are clear. The cardiac silhouette is normal in size. The remaining osseous structures are intact. Sternotomy w ires are evident. Aortic valve replacement changes. IMPRESSION RIBS: No evidence for displaced rib fracture.
[2022-03-08 16:42] LABS: Glucose,Whole Blood 58 mg/dL (75-99)
[2022-03-08 17:05] LABS: Glucose,Whole Blood 69 mg/dL (75-99)
[2022-03-08] MEDS ORDERED: WARFARIN 7.5 MG TAB PO ONE (18:00)
[2022-03-08 18:11] LABS: Glucose,Whole Blood 103 mg/dL (75-99)
--- NOTE | 2022-03-08 20:31 | P.PN ---
Subjective Progress Note Date: 03/08/22 Linda Isaac, is a 61-year-old female who presented to [facility] emergency room with a chief complaint of fever or chills and mental status changes. She was evaluated in the emergency room vital examination on presentation revealed a temperature of 105.7 pulse 116 respiration 18 and blood pressure 128/78 pulse ox 94% on room air Laboratory data revealed a white blood count of 5.4 hemoglobin 12.1 platelet count 204 sodium 127 potassium 4.3 chloride 95 CO2 24 BUN 17 creatinine 1.12 AST elevated at 72 ALT 36 influenza A and B titers and COVID-19 PCR were negative, urine analysis was not done, INR was 2.2 Testing in the emergency room revealed chest x-ray done in the emergency room revealed scattered opacities which may represent atypical pneumonia, computed tomography scan of the brain done in the emergency room without contrast revealed no acute intracranial process, computed tomography scan of the abdomen and pelvis done in the emergency room revealed a right thigh enlarged lymph node, bladder wall thickening, and hepatic steatosis. Patient was admitted to medical floor for further evaluation and treatment. She was started on IV antibiotic Rocephin and Zithromax in the emergency room for presumed pneumonia, shortly after admission patient had positive blood culture for gram-negative bacilli and IV antibiotics were changed to Zosyn and Levaquin, infectious disease consultation was requested. Past medical history is significant for history of aortic valve replacement with mechanical valve patient is maintained on Coumadin, history of morbid obesity, history of obstructive sleep apnea, history of hypothyroidism, history of bipolar disorder with schizoaffective disorder, history of hypertension, history of hyperlipidemia, and history of diabetes mellitus. On review of systems at this time patient is alert and oriented 3 in no apparent distress she is complaining of episodes on and off of shaking chills, otherwise she denies any complaints at this time there is no headache or dizziness no chest pain no shortness of breath no cough no nausea or vomiting no abdominal pain no diarrhea and no urinary symptoms. On 03/04/2022 patient is alert and oriented 3. CT of right foot ordered per infectious disease to rule out abscess. Patient is positive for bacteremia remains on IV antibiotics. Patient stating that she would like to go home explained patient that she had positive blood culture requiring IV antibiotics. Lab work currently pending. Current vitals temp 98.6, heart rate 75, respiratory rate 17, blood pressure 100/65 patient sating 96% on room air On 03/05/2022 patient is alert and oriented 3. Patient is positive for bacteremia remains on IV antibiotics. Patient stating that she would like to go home explained patient that she had positive blood culture requiring IV antibiotics. Lab work currently pending. Current vitals temp 98.6, heart rate 70, respiratory rate 18, blood pressure 108/70 patient sating 96% on room air On 03/06/2022 patient is alert and oriented 3 patient having increased wheezing will order chest x-ray, BNP and D echo. Patient remains on IV antibiotics repeat blood cultures have been ordered On 03/07/2022 patient is alert and oriented 3 patient remains on IV septal is Avinash. 2-D echo completed showing EF of 55-60%. Liver enzymes continue to be elevated will DC Lipitor in order liver ultrasound. This time patient denies chest pain or shortness of breath. Patient denies nausea vomiting or diarrhea. Patient denies any urinary burning or frequency. On 03/08/2022 patient was seen and examined on the medical floor she is alert and oriented 3 in no apparent distress, she is complaining of generalized fatigue and left sided rib pain, related to fall prior to admission and left sided chest trauma, patient is also complaining of left sided knee pain. Case was discussed with Dr. Varela cardiology, he is recommending BLANCA . This will be scheduled for tomorrow, also orthopedic surgery consultation will be requested in regard to left knee pain and swelling. Continue with current man agement with IV antibiotics, infectious disease following Objective - Vital Signs Vital signs: Vital Signs Temp 98.4 F 03/08/22 09:03 Pulse 85 03/08/22 09:03 Resp 19 03/08/22 09:03 BP 138/84 03/08/22 09:03 Pulse Ox 92 L 03/08/22 09:03 Intake & Output 03/07/22 03/08/22 03/08/22 18:59 06:59 18:59 Intake Total 1080 1200 Balance 1080 1200 Intake: Intake, IV Titration 1200 Amount Sodium Chloride 0.9% 1, 1100 000 ml @ 100 mls/hr IV . Q10H [facility] Rx#:[id number] ceFAZolin 2 gm In Sodium 100 Chloride 0.9% 50 ml @ 100 mls/hr IVPB Q8HR [facility] Rx# :[id number] Oral 1080 Other: Voiding Method Toilet Toilet # Voids 3 1 1 # Bowel Movements 1 1 - Exam In general patient is alert and oriented x 3 in no distress HEENT head normocephalic and atraumatic Neck is supple no JVD no goiter no lymphadenopathy no carotid bruit Chest examination reveals a scattered crackles bilaterally no wheezing Cardiac exam reveals regular heart sounds S1 and S2 with stools over 6 systolic murmur in the right sternal border Abdomen is soft nontender no organomegaly with normal bowel sounds Extremity exam reveals no edema no cyanosis or clubbing Neurological examination reveals no gross focal deficits - Labs CBC & Chem 7: 03/08/22 05:23 03/08/22 05:23 Labs: Abnormal Lab Results - Last 24 Hours (Table) 03/07/22 03/07/22 03/08/22 Range/Units 16:55 20:41 05:23 RBC (4.10-5.20) X 10*6/uL Hgb (12.0-15.0) g/dL Hct (37.2-46.3) % Absolute Nucleated RBC (0.00-0.00) X 10*3/uL Metamyelocytes % (0-0) % Myelocytes % (0-0) % Lymphocytes # (Manual) (0.90-5.00) X 10*3/uL Eosinophils # (Manual) (0.04-0.35) X 10*3/uL NRBC/100 WBC Diff (0.0-0.0) /100 WBCS PT 34.8 H (9.0-12.0) sec INR 3.5 H (<1.2) Anion Gap (10.00-18.00) mmol/L BUN (9.0-27.0) mg/dL BUN/Creatinine Ratio (12.00-20.00) Ratio POC Glucose (mg/dL) 121 H 143 H (75-99) mg/dL Calcium (8.7-10.3) mg/dL AST (13-35) U/L ALT (8-44) U/L Alkaline Phosphatase (41-126) U/L Total Protein (6.2-8.2) g/dL Albumin (3.8-4.9) g/dL Albumin/Globulin Ratio (1.60-3.17) g/dL 03/08/22 03/08/22 03/08/22 Range/Units 05:23 05:23 11:11 RBC 2.70 L (4.10-5.20) X 10*6/uL Hgb 7.9 L (12.0-15.0) g/dL Hct 23.6 L (37.2-46.3) % Absolute Nucleated RBC 0.03 H (0.00-0.00) X 10*3/uL Metamyelocytes % 1 H (0-0) % Myelocytes % 3 H (0-0) % Lymphocytes # (Manual) 0.32 L (0.90-5.00) X 10*3/uL Eosinophils # (Manual) 0 L (0.04-0.35) X 10*3/uL NRBC/100 WBC Diff 0.4 H (0.0-0.0) /100 WBCS PT (9.0-12.0) sec INR (<1.2) Anion Gap 9.60 L (10.00-18.00) mmol/L BUN 7.1 L (9.0-27.0) mg/dL BUN/Creatinine Ratio 11.83 L (12.00-20.00) Ratio POC Glucose (mg/dL) 157 H (75-99) mg/dL Calcium 8.0 L (8.7-10.3) mg/dL AST 50 H (13-35) U/L ALT 49 H (8-44) U/L Alkaline Phosphatase 534 H (41-126) U/L Total Protein 5.1 L (6.2-8.2) g/dL Albumin 2.9 L (3.8-4.9) g/dL Albumin/Globulin Ratio 1.32 L (1.60-3.17) g/dL Microbiology - Last 24 Hours (Table) 03/06/22 06:08 Blood Culture - Preliminary Blood No Growth after 48 hours 03/07/22 04:40 Blood Culture - Preliminary Blood No Growth after 24 hours 03/05/22 14:06 Blood Culture - Preliminary Blood No Growth after 48 hours 03/04/22 12:37 Blood Culture Gram Stain - Final Blood Blood Culture - Final Coagulase Negative Staph Coagulase Negative Staph#2 Coagulase Negative Staph#3 03/03/22 14:10 Blood Culture Gram Stain - Final Blood Blood Culture - Final Staphylococcus aureus Assessment and Plan Plan: 1. Sepsis, with positive blood culture 2. Possible underlying pneumonia 3. Hyponatremia on presentation 4. Mental status changes on presentation likely related to sepsis and elevated temperature, improving 5. Underlying history of insulin-dependent diabetes mellitus 6. Underlying history of aortic valve replacement with mechanical valve patient is maintained on Coumadin 7. Underlying history of hypertension 8. Underlying history of hyperlipidemia 9. Underlying history of hypothyroidism 10. Underlying history of bipolar disorder, and schizoaffective disorder 11. Elevated liver enzymes. Will order liver ultrasound and Lipitor DC'd 12. Elevated BNP. 2-D echo completed showing EF of 50-55% will consult cardiology services At this time patient is admitted to medical floor She is maintained on IV antibiotics, initially patient was given Rocephin and Zithromax in the emergency room for presumed pneumonia. Positive blood cultures at night when he first reported as gram-negative bacilli, antibiotics were changed to IV Zosyn and IV Levaquin. At this time blood cultures are reported as gram-positive cocci in clusters, will continue with IV Zosyn Will discontinue Levaquin and add IV vancomycin pharmacy to dose. Awaiting urine analysis and will urine culture results Infectious disease consultation was requested Coumadin was resumed will monitor INR daily, goal 2.5-3.5 due to mechanical valve
[2022-03-08 20:43] LABS: Glucose,Whole Blood 163 mg/dL (75-99)
[2022-03-08] MEDS: OLANZapine 10 MG TAB PO SCH (20:57)
--- NOTE | 2022-03-08 21:32 | P.PN ---
Subjective Progress Note Date: 03/07/22 Principal diagnosis: MSSA bacteremia and right foot cellulitis Patient is a 61 year female with a past medical history significant for diabetes mellitus presented to hospital record nausea no vomiting noticed to have MSSA bacteremia secondary to the right foot plantar wound, patient did have a CT of the right foot completed 03/04/2022 with no evidence of any drainable abscess. On today's evaluation that is 03/07/2022, the patient remains to be afebrile, the patient denies chest pain and is breathing comfortably today, The denies pain to the right foot , the patient denies nausea no vomiting and no diarrhea Objective - Vital Signs Vital signs: Vital Signs Temp 98.0 F 03/07/22 07:54 Pulse 90 03/07/22 11:25 Resp 18 03/07/22 07:54 BP 132/77 03/07/22 07:54 Pulse Ox 96 03/07/22 07:54 Intake & Output 03/06/22 03/07/22 03/07/22 18:59 06:59 18:59 Intake Total 180 1200 Balance 180 1200 Intake: Intake, IV Titration 1200 Amount Sodium Chloride 0.9% 1, 1100 000 ml @ 100 mls/hr IV . Q10H [facility] Rx#:[id number] ceFAZolin 2 gm In Sodium 100 Chloride 0.9% 50 ml @ 100 mls/hr IVPB Q8HR [facility] Rx# :[id number] Oral 180 Other: Voiding Method Toilet # Voids 5 1 # Bowel Movements 1 - Exam GENERAL DESCRIPTION: Middle-aged female lying in bed in no distress RESPIRATORY SYSTEM: Unlabored breathing , decreased breath sounds at bases HEART: S1 S2 regular rate and rhythm , ABDOMEN: Soft , no tenderness EXTREMITIES: No edema feet - Labs CBC & Chem 7: 03/08/22 05:23 03/08/22 05:23 Labs: Abnormal Lab Results - Last 24 Hours (Table) 03/06/22 03/06/22 03/06/22 Range/Units 11:30 16:32 20:53 RBC (4.10-5.20) X 10*6/uL Hgb (12.0-15.0) g/dL Hct (37.2-46.3) % Metamyelocytes % (0-0) % Lymphocytes # (Manual) (0.90-5.00) X 10*3/uL PT (9.0-12.0) sec INR (<1.2) Sodium (135-145) mmol/L Glucose (70-110) mg/dL POC Glucose (mg/dL) 101 H 119 H 128 H (75-99) mg/dL Calcium (8.7-10.3) mg/dL AST (13-35) U/L ALT (8-44) U/L Alkaline Phosphatase (41-126) U/L Total Protein (6.2-8.2) g/dL Albumin (3.8-4.9) g/dL Albumin/Globulin Ratio (1.60-3.17) g/dL 03/07/22 03/07/22 03/07/22 Range/Units 04:40 04:40 04:40 RBC 2.72 L (4.10-5.20) X 10*6/uL Hgb 7.7 L (12.0-15.0) g/dL Hct 23.9 L (37.2-46.3) % Metamyelocytes % 2 H (0-0) % Lymphocytes # (Manual) 0.38 L (0.90-5.00) X 10*3/uL PT 36.6 H (9.0-12.0) sec INR 3.7 H (<1.2) Sodium 132 L (135-145) mmol/L Glucose 114 H (70-110) mg/dL POC Glucose (mg/dL) (75-99) mg/dL Calcium 7.8 L (8.7-10.3) mg/dL AST 69 H (13-35) U/L ALT 61 H (8-44) U/L Alkaline Phosphatase 509 H (41-126) U/L Total Protein 5.2 L (6.2-8.2) g/dL Albumin 3.0 L (3.8-4.9) g/dL Albumin/Globulin Ratio 1.36 L (1.60-3.17) g/dL 03/07/22 03/07/22 Range/Units 06:53 11:09 RBC (4.10-5.20) X 10*6/uL Hgb (12.0-15.0) g/dL Hct (37.2-46.3) % Metamyelocytes % (0-0) % Lymphocytes # (Manual) (0.90-5.00) X 10*3/uL PT (9.0-12.0) sec INR (<1.2) Sodium (135-145) mmol/L Glucose (70-110) mg/dL POC Glucose (mg/dL) 120 H 190 H (75-99) mg/dL Calcium (8.7-10.3) mg/dL AST (13-35) U/L ALT (8-44) U/L Alkaline Phosphatase (41-126) U/L Total Protein (6.2-8.2) g/dL Albumin (3.8-4.9) g/dL Albumin/Globulin Ratio (1.60-3.17) g/dL Microbiology - Last 24 Hours (Table) 03/06/22 06:08 Blood Culture - Preliminary Blood No Growth after 24 hours 03/05/22 14:06 Blood Culture - Preliminary Blood No Growth after 24 hours 03/03/22 14:10 Blood Culture Gram Stain - Preliminary Blood Blood Culture - Preliminary Presumptive Staph aureus Assessment and Plan (1) Pyrexia Current Visit: Yes Status: Acute Code(s): R50.9 - FEVER, UNSPECIFIED SNOMED Code(s): 632429602 Plan: 1patient presented to hospital with mental status changes fever and this patient did have a nausea and vomiting now with evidence of gram-positive ba cteremia source likely right foot infection was apparently the patient did have a cut few days ago the area slightly fluctuant concerning for possible abscess and likely the source of her infection. 2blood cultures are still positive and blood cultures will be repeated to document clearance of bacteremia, echocardiogram did show functioning prosthetic aortic valve and no evidence of vegetation 3CT of the right foot to make did not show any evidence of any abscess 4patient to continue with cefazolin 2 g every 8 hours if repeat blood cultures are negative by tomorrow patient be able to get a PICC line for outpatient IV antibiotic therapy, discussed with the nurse practitioner for admitting him Time with Patient: Less than 30
--- NOTE | 2022-03-08 21:34 | P.PN ---
Subjective Progress Note Date: 03/08/22 Principal diagnosis: MSSA bacteremia and right foot cellulitis Patient is a 61 year female with a past medical history significant for diabetes mellitus presented to hospital record nausea no vomiting noticed to have MSSA bacteremia secondary to the right foot plantar wound, patient did have a CT of the right foot completed 03/04/2022 with no evidence of any drainable abscess. On today's evaluation that is 03/08/2022, the patient denies any fever or chills, the patient is breathing comfortably and denies chest pain, The denies pain to the right foot , the patient denies nausea no vomiting and no diarrhea, patient feeling better and wants to go home Objective - Vital Signs Vital signs: Vital Signs Temp 98.4 F 03/08/22 09:03 Pulse 85 03/08/22 09:03 Resp 19 03/08/22 09:03 BP 138/84 03/08/22 09:03 Pulse Ox 92 L 03/08/22 09:03 Intake & Output 03/07/22 03/08/22 03/08/22 18:59 06:59 18:59 Intake Total 1080 1200 Balance 1080 1200 Intake: Intake, IV Titration 1200 Amount Sodium Chloride 0.9% 1, 1100 000 ml @ 100 mls/hr IV . Q10H [facility] Rx#:[id number] ceFAZolin 2 gm In Sodium 100 Chloride 0.9% 50 ml @ 100 mls/hr IVPB Q8HR [facility] Rx# :[id number] Oral 1080 Other: Voiding Method Toilet Toilet # Voids 3 1 1 # Bowel Movements 1 1 - Exam GENERAL DESCRIPTION: Middle-aged female lying in bed in no distress RESPIRATORY SYSTEM: Unlabored breathing , decreased breath sounds at bases HEART: S1 S2 regular rate and rhythm , ABDOMEN: Soft , no tenderness EXTREMITIES: No edema feet - Labs CBC & Chem 7: 03/08/22 05:23 03/08/22 05:23 Labs: Abnormal Lab Results - Last 24 Hours (Table) 03/07/22 03/07/22 03/08/22 Range/Units 16:55 20:41 05:23 RBC (4.10-5.20) X 10*6/uL Hgb (12.0-15.0) g/dL Hct (37.2-46.3) % Absolute Nucleated RBC (0.00-0.00) X 10*3/uL Metamyelocytes % (0-0) % Myelocytes % (0-0) % Lymphocytes # (Manual) (0.90-5.00) X 10*3/uL Eosinophils # (Manual) (0.04-0.35) X 10*3/uL NRBC/100 WBC Diff (0.0-0.0) /100 WBCS PT 34.8 H (9.0-12.0) sec INR 3.5 H (<1.2) Anion Gap (10.00-18.00) mmol/L BUN (9.0-27.0) mg/dL BUN/Creatinine Ratio (12.00-20.00) Ratio POC Glucose (mg/dL) 121 H 143 H (75-99) mg/dL Calcium (8.7-10.3) mg/dL AST (13-35) U/L ALT (8-44) U/L Alkaline Phosphatase (41-126) U/L Total Protein (6.2-8.2) g/dL Albumin (3.8-4.9) g/dL Albumin/Globulin Ratio (1.60-3.17) g/dL 03/08/22 03/08/22 03/08/22 Range/Units 05:23 05:23 11:11 RBC 2.70 L (4.10-5.20) X 10*6/uL Hgb 7.9 L (12.0-15.0) g/dL Hct 23.6 L (37.2-46.3) % Absolute Nucleated RBC 0.03 H (0.00-0.00) X 10*3/uL Metamyelocytes % 1 H (0-0) % Myelocytes % 3 H (0-0) % Lymphocytes # (Manual) 0.32 L (0.90-5.00) X 10*3/uL Eosinophils # (Manual) 0 L (0.04-0.35) X 10*3/uL NRBC/100 WBC Diff 0.4 H (0.0-0.0) /100 WBCS PT (9.0-12.0) sec INR (<1.2) Anion Gap 9.60 L (10.00-18.00) mmol/L BUN 7.1 L (9.0-27.0) mg/dL BUN/Creatinine Ratio 11.83 L (12.00-20.00) Ratio POC Glucose (mg/dL) 157 H (75-99) mg/dL Calcium 8.0 L (8.7-10.3) mg/dL AST 50 H (13-35) U/L ALT 49 H (8-44) U/L Alkaline Phosphatase 534 H (41-126) U/L Total Protein 5.1 L (6.2-8.2) g/dL Albumin 2.9 L (3.8-4.9) g/dL Albumin/Globulin Ratio 1.32 L (1.60-3.17) g/dL Microbiology - Last 24 Hours (Table) 03/06/22 06:08 Blood Culture - Preliminary Blood No Growth after 48 hours 03/07/22 04:40 Blood Culture - Preliminary Blood No Growth after 24 hours 03/05/22 14:06 Blood Culture - Preliminary Blood No Growth after 48 hours 03/04/22 12:37 Blood Culture Gram Stain - Final Blood Blood Culture - Final Coagulase Negative Staph Coagulase Negative Staph#2 Coagulase Negative Staph#3 03/03/22 14:10 Blood Culture Gram Stain - Final Blood Blood Culture - Final Staphylococcus aureus Assessment and Plan (1) Pyrexia Current Visit: Yes Status: Acute Code(s): R50.9 - FEVER, UNSPECIFIED SNOMED Code(s): 389180164 Plan: 1patient presented to hospital with mental status changes fever and this patient did have a nausea and vomiting now with evidence of gram-positive bacteremia source likely right foot infection was apparently the patient did have a cut few days ago the area slightly fluctuant concerning for possible abscess and likely the source of her infection. 2blood cultures are still positive and blood cultures will be repeated to document clearance of bacteremia, echocardiogram did show functioning prosthetic aortic valve and no evidence of vegetation,cardiology has been consulted for possibility 3CT of the right foot did not show any evidence of abscess 4patient to continue with cefazolin 2 g every 8 hours , repeat blood culture had been negative patient is cleared for PICC line placement and outpatient IV antibiotics, Time with Patient: Less than 30
[2022-03-08 22:28] LABS: % Iron Saturation 10.63 (12.00-45.00)
[2022-03-09] MEDS: LEVOTHYROXINE 125 MCG TAB PO SCH (05:51)
[2022-03-09] MEDS: SODIUM CHLORIDE 0.9% 1,000 ML IV SCH ×3 (05:52→16:19)
[2022-03-09 06:49] LABS: Glucose,Whole Blood 75 mg/dL (75-99)
[2022-03-09] MEDS: INSULIN ASPART (NovoLOG) 100 UNIT/ML VIAL SQ SCH ×3 (07:20→17:23)
[2022-03-09] MEDS: INSULIN DETEMIR (LEVEMIR) 100 UNIT/ML SYR SQ SCH ×2 (07:21→20:40)
[2022-03-09] MEDS: METOPROLOL SUCCINATE (ER) 100 MG TAB.ER.24H PO SCH (07:22)
[2022-03-09] MEDS: VENLAFAXINE HCL ER 150 MG CAP PO SCH (07:22)
[2022-03-09] MEDS: traMADol 50 MG TAB PO SCH ×3 (07:22→20:31)
[2022-03-09] MEDS: lisinopriL 5 MG TAB PO SCH (07:22)
[2022-03-09] MEDS ORDERED: LIDOCAINE 2% INJ 20 MG/ML (20 ML MDV) SQ STA (08:04)
[2022-03-09 08:26] LABS: Glucose,Whole Blood 89 mg/dL (75-99)
[2022-03-09] MEDS: ACETAMINOPHEN TAB 325 MG TAB PO PRN ×3 (08:58→20:33)
[2022-03-09] MEDS: PANTOPRAZOLE 40 MG/10 ML VIAL IVP SCH (08:59)
[2022-03-09 09:26] LABS: Albumin/Globulin Ratio 1.39 (1.60-3.17); Anion Gap 12.5 mmol/L (10.00-18.00); BUN/Creat Ratio 13.2 Ratio (12.00-20.00); Blood Urea Nitrogen 6.7 mg/dL (9.0-27.0); Calcium 8.4 mg/dL (8.7-10.3); Carbon Dioxide 23.5 mmol/L (20.0-27.5); Globulin 2.2 g/dL (1.6-3.3); Non-African American GFR(CKD) 105.3 (60.0-200.0); Potassium 3.7 mmol/L (3.5-5.5); Total Bilirubin 0.3 mg/dL (0.30-1.20); Total Protein 5.2 g/dL (6.2-8.2)
[2022-03-09] MEDS ORDERED: fentaNYL (PF) 50 MCG/ML 2 ML AMP ONE (09:26)
[2022-03-09] MEDS: BENZOCAINE SPRAY 1 CAN TOPICAL ONE ×3 (10:00→10:23)
[2022-03-09] MEDS ORDERED: IV FLUID CONTINUATION 800 ML IV ONE ×2 (10:12)
[2022-03-09] MEDS ORDERED: fentaNYL (PF) 50 MCG/ML 2 ML AMP IV ONE ×2 (10:15→10:23)
[2022-03-09] MEDS ORDERED: MIDAZOLAM 2 MG/2 ML VIAL IV ONE ×3 (10:15→10:24)
--- NOTE | 2022-03-09 10:21 | P.PN ---
Subjective Progress Note Date: 03/09/22 Linda Isaac, is a 61-year-old female who presented to [facility] emergency room with a chief complaint of fever or chills and mental status changes. She was evaluated in the emergency room vital examination on presentation revealed a temperature of 105.7 pulse 116 respiration 18 and blood pressure 128/78 pulse ox 94% on room air Laboratory data revealed a white blood count of 5.4 hemoglobin 12.1 platelet count 204 sodium 127 potassium 4.3 chloride 95 CO2 24 BUN 17 creatinine 1.12 AST elevated at 72 ALT 36 influenza A and B titers and COVID-19 PCR were negative, urine analysis was not done, INR was 2.2 Testing in the emergency room revealed chest x-ray done in the emergency room revealed scattered opacities which may represent atypical pneumonia, computed tomography scan of the brain done in the emergency room without contrast revealed no acute intracranial process, computed tomography scan of the abdomen and pelvis done in the emergency room revealed a right thigh enlarged lymph node, bladder wall thickening, and hepatic steatosis. Patient was admitted to medical floor for further evaluation and treatment. She was started on IV antibiotic Rocephin and Zithromax in the emergency room for presumed pneumonia, shortly after admission patient had positive blood culture for gram-negative bacilli and IV antibiotics were changed to Zosyn and Levaquin, infectious disease consultation was requested. Past medical history is significant for history of aortic valve replacement with mechanical valve patient is maintained on Coumadin, history of morbid obesity, history of obstructive sleep apnea, history of hypothyroidism, history of bipolar disorder with schizoaffective disorder, history of hypertension, history of hyperlipidemia, and history of diabetes mellitus. On review of systems at this time patient is alert and oriented 3 in no apparent distress she is complaining of episodes on and off of shaking chills, otherwise she denies any complaints at this time there is no headache or dizziness no chest pain no shortness of breath no cough no nausea or vomiting no abdominal pain no diarrhea and no urinary symptoms. On 03/04/2022 patient is alert and oriented 3. CT of right foot ordered per infectious disease to rule out abscess. Patient is positive for bacteremia remains on IV antibiotics. Patient stating that she would like to go home explained patient that she had positive blood culture requiring IV antibiotics. Lab work currently pending. Current vitals temp 98.6, heart rate 75, respiratory rate 17, blood pressure 100/65 patient sating 96% on room air On 03/05/2022 patient is alert and oriented 3. Patient is positive for bacteremia remains on IV antibiotics. Patient stating that she would like to go home explained patient that she had positive blood culture requiring IV antibiotics. Lab work currently pending. Current vitals temp 98.6, heart rate 70, respiratory rate 18, blood pressure 108/70 patient sating 96% on room air On 03/06/2022 patient is alert and oriented 3 patient having increased wheezing will order chest x-ray, BNP and D echo. Patient remains on IV antibiotics repeat blood cultures have been ordered On 03/07/2022 patient is alert and oriented 3 patient remains on IV septal is Avinash. 2-D echo completed showing EF of 55-60%. Liver enzymes continue to be elevated will DC Lipitor in order liver ultrasound. This time patient denies chest pain or shortness of breath. Patient denies nausea vomiting or diarrhea. Patient denies any urinary burning or frequency. On 03/08/2022 patient was seen and examined on the medical floor she is alert and oriented 3 in no apparent distress, she is complaining of generalized fatigue and left sided rib pain, related to fall prior to admission and left sided chest trauma, patient is also complaining of left sided knee pain. Case was discussed with Dr. Varela cardiology, he is recommending BLANCA . This will be scheduled for tomorrow, also orthopedic surgery consultation will be requested in regard to left knee pain and swelling. Continue with current man agement with IV antibiotics, infectious disease following On 03/09/2022 patient is alert and oriented 3. Patient underwent drainage of left knee per orthopedics and associates. Patient also undergoing BLANCA today per cardiology. At this time patient denies chest pain or shortness of breath. Pat ient denies nausea vomiting or diarrhea. Patient denies any urinary burning or frequency. Objective - Vital Signs Vital signs: Vital Signs Temp 98.6 F 03/09/22 07:09 Pulse 78 03/09/22 10:16 Resp 16 03/09/22 10:16 BP 141/67 03/09/22 10:16 Pulse Ox 97 03/09/22 10:16 Intake & Output 03/08/22 03/09/22 03/09/22 18:59 06:59 18:59 Weight 99.79 kg Other: Voiding Method Toilet Toilet # Voids 1 # Bowel Movements 1 - Exam In general patient is alert and oriented x 3 in no distress HEENT head normocephalic and atraumatic Neck is supple no JVD no goiter no lymphadenopathy no carotid bruit Chest examination reveals a scattered crackles bilaterally no wheezing Cardiac exam reveals regular heart sounds S1 and S2 with stools over 6 systolic murmur in the right sternal border Abdomen is soft nontender no organomegaly with normal bowel sounds Extremity exam reveals no edema no cyanosis or clubbing Neurological examination reveals no gross focal deficits - Labs CBC & Chem 7: 03/08/22 05:23 03/09/22 04:59 Labs: Abnormal Lab Results - Last 24 Hours (Table) 03/08/22 03/08/22 03/08/22 Range/Units 05:23 11:11 13:47 BUN (9.0-27.0) mg/dL Creatinine (0.6-1.5) mg/dL Glucose (70-110) mg/dL POC Glucose (mg/dL) 157 H 123 H (75-99) mg/dL Calcium (8.7-10.3) mg/dL Iron 24 L (50-170) ug/dL TIBC 227 L (228-460) ug/dL % Saturation 10.63 L (12.00-45.00) Transferrin 162.0 L (204.0-354.0) mg/dL AST (13-35) U/L ALT (8-44) U/L Alkaline Phosphatase (41-126) U/L Total Protein (6.2-8.2) g/dL Albumin (3.8-4.9) g/dL Albumin/Globulin Ratio (1.60-3.17) g/dL Vitamin B12 1878.0 H (200.0-944.0) pg/mL 03/08/22 03/08/22 03/08/22 Range/Units 15:59 16:15 16:31 BUN (9.0-27.0) mg/dL Creatinine (0.6-1.5) mg/dL Glucose (70-110) mg/dL POC Glucose (mg/dL) 47 L 51 L 58 L (75-99) mg/dL Calcium (8.7-10.3) mg/dL Iron (50-170) ug/dL TIBC (228-460) ug/dL % Saturation (12.00-45.00) Transferrin (204.0-354.0) mg/dL AST (13-35) U/L ALT (8-44) U/L Alkaline Phosphatase (41-126) U/L Total Protein (6.2-8.2) g/dL Albumin (3.8-4.9) g/dL Albumin/Globulin Ratio (1.60-3.17) g/dL Vitamin B12 (200.0-944.0) pg/mL 03/08/22 03/08/22 03/08/22 Range/Units 17:03 18:09 20:40 BUN (9.0-27.0) mg/dL Creatinine (0.6-1.5) mg/dL Glucose (70-110) mg/dL POC Glucose (mg/dL) 69 L 103 H 163 H (75-99) mg/dL Calcium (8.7-10.3) mg/dL Iron (50-170) ug/dL TIBC (228-460) ug/dL % Saturation (12.00-45.00) Transferrin (204.0-354.0) mg/dL AST (13-35) U/L ALT (8-44) U/L Alkaline Phosphatase (41-126) U/L Total Protein (6.2-8.2) g/dL Albumin (3.8-4.9) g/dL Albumin/Globulin Ratio (1.60-3.17) g/dL Vitamin B12 (200.0-944.0) pg/mL 03/09/22 Range/Units 04:59 BUN 6.7 L (9.0-27.0) mg/dL Creatinine 0.5 L (0.6-1.5) mg/dL Glucose 54 L (70-110) mg/dL POC Glucose (mg/dL) (75-99) mg/dL Calcium 8.4 L (8.7-10.3) mg/dL Iron (50-170) ug/dL TIBC (228-460) ug/dL % Saturation (12.00-45.00) Transferrin (204.0-354.0) mg/dL AST 57 H (13-35) U/L ALT 62 H (8-44) U/L Alkaline Phosphatase 604 H (41-126) U/L Total Protein 5.2 L (6.2-8.2) g/dL Albumin 3.0 L (3.8-4.9) g/dL Albumin/Globulin Ratio 1.39 L (1.60-3.17) g/dL Vitamin B12 (200.0-944.0) pg/mL Microbiology - Last 24 Hours (Table) 03/06/22 06:08 Blood Culture - Preliminary Blood No Growth after 72 hours 03/07/22 04:40 Blood Culture - Preliminary Blood No Growth after 48 hours 03/05/22 14:06 Blood Culture - Preliminary Blood No Growth after 72 hours Assessment and Plan Plan: 1. Sepsis, with positive blood culture 2. Possible underlying pneumonia 3. Hyponatremia on presentation 4. Mental status changes on presentation likely related to sepsis and elevated temperature, improving 5. Underlying history of insulin-dependent diabetes mellitus 6. Underlying history of aortic valve replacement with mechanical valve patient is maintained on Coumadin 7. Underlying history of hypertension 8. Underlying history of hyperlipidemia 9. Underlying history of hypothyroidism 10. Underlying history of bipolar disorder, and schizoaffective disorder 11. Elevated liver enzymes. Will order liver ultrasound and Lipitor DC'd 12. Elevated BNP. 2-D echo completed showing EF of 50-55% will consult cardiology services 13. Left knee swelling. Status post drainage of left knee edema per orthopedic services At this time patient is admitted to medical floor status post drainage of left knee BLANCA plan for 03/09/2022 Patient will require IV antibiotics upon discharge Infectious disease consultation was requested Coumadin was resumed will monitor INR daily, goal 2.5-3.5 due to mechanical valve
--- NOTE | 2022-03-09 10:40 | P.PN ---
Subjective Progress Note Date: 03/09/22 PROGRESS NOTE The patient is a 61-year-old female with known history of aortic valve replacement in 2013 history of hyperlipidemia, hypertension who presented with change in mental status and fever. She had some discomfort on the left side with weakness after a fall. She is feeling better this morning and is undergoing drainage of her left knee. She denies any dizziness or palpitations. She denies any nausea. Her echocardiogram showed a normal systolic function with normal appearance of her prosthetic aortic valve. She continues to be on cefazolin, insulin her lisinopril 5 mg daily, metoprolol succinate 100 mg daily, Coumadin PHYSICAL EXAMINATION: Blood pressure 135/69 heart rate 80 LUNGS: [Clear to auscultation] HEART: [Regular rate and rhythm, S1, prosthetic S2. No S3. systolic murmur at the base] ABDOMEN: [Soft, nontender, no organomegaly] EXTREMETIES: [Trace to 1+ edema, swelling of the left knee] LAB: Potassium 3.7, BUN 6.7, creatinine 0.5 alk phos 604. Her INR yesterday was 3.5 IMPRESSION: 1. Sepsis with positive blood culture, source unclear 2. Status post prostatic aortic valve replacement in 2012 3. Change in mental status probably secondary to the infection 4. Congestive heart failure with preserved systolic function, improved 5. Hypertension 6. Hyperlipidemia PLAN: We will proceed with BLANCA today to evaluate the aortic valve to rule out thrombus or vegetation. Clinically she has no evidence of valvular dysfunction. We will continue Coumadin for an INR of 2.5-3.5. Depending on her progress further recommendations will be made. Objective - Vital Signs Vital signs: Vital Signs Temp 98.6 F 03/09/22 07:09 Pulse 80 03/09/22 10:32 Resp 16 03/09/22 10:32 BP 135/69 03/09/22 10:32 Pulse Ox 97 03/09/22 10:32 Intake & Output 03/08/22 03/09/22 03/09/22 18:59 06:59 18:59 Intake Total 100 Balance 100 Weight 99.79 kg Intake: IV 100 Other: Voiding Method Toilet Toilet # Voids 1 # Bowel Movements 1 - Labs CBC & Chem 7: 03/08/22 05:23 03/09/22 04:59 Labs: Abnormal Lab Results - Last 24 Hours (Table) 03/08/22 03/08/22 03/08/22 Range/Units 05:23 11:11 13:47 BUN (9.0-27.0) mg/dL Creatinine (0.6-1.5) mg/dL Glucose (70-110) mg/dL POC Glucose (mg/dL) 157 H 123 H (75-99) mg/dL Calcium (8.7-10.3) mg/dL Iron 24 L (50-170) ug/dL TIBC 227 L (228-460) ug/dL % Saturation 10.63 L (12.00-45.00) Transferrin 162.0 L (204.0-354.0) mg/dL AST (13-35) U/L ALT (8-44) U/L Alkaline Phosphatase (41-126) U/L Total Protein (6.2-8.2) g/dL Albumin (3.8-4.9) g/dL Albumin/Globulin Ratio (1.60-3.17) g/dL Vitamin B12 1878.0 H (200.0-944.0) pg/mL 03/08/22 03/08/22 03/08/22 Range/Units 15:59 16:15 16:31 BUN (9.0-27.0) mg/dL Creatinine (0.6-1.5) mg/dL Glucose (70-110) mg/dL POC Glucose (mg/dL) 47 L 51 L 58 L (75-99) mg/dL Calcium (8.7-10.3) mg/dL Iron (50-170) ug/dL TIBC (228-460) ug/dL % Saturation (12.00-45.00) Transferrin (204.0-354.0) mg/dL AST (13-35) U/L ALT (8-44) U/L Alkaline Phosphatase (41-126) U/L Total Protein (6.2-8.2) g/dL Albumin (3.8-4.9) g/dL Albumin/Globulin Ratio (1.60-3.17) g/dL Vitamin B12 (200.0-944.0) pg/mL 03/08/22 03/08/22 03/08/22 Range/Units 17:03 18:09 20:40 BUN (9.0-27.0) mg/dL Creatinine (0.6-1.5) mg/dL Glucose (70-110) mg/dL POC Glucose (mg/dL) 69 L 103 H 163 H (75-99) mg/dL Calcium (8.7-10.3) mg/dL Iron (50-170) ug/dL TIBC (228-460) ug/dL % Saturation (12.00-45.00) Transferrin (204.0-354.0) mg/dL AST (13-35) U/L ALT (8-44) U/L Alkaline Phosphatase (41-126) U/L Total Protein (6.2-8.2) g/dL Albumin (3.8-4.9) g/dL Albumin/Globulin Ratio (1.60-3.17) g/dL Vitamin B12 (200.0-944.0) pg/mL 03/09/22 Range/Units 04:59 BUN 6.7 L (9.0-27.0) mg/dL Creatinine 0.5 L (0.6-1.5) mg/dL Glucose 54 L (70-110) mg/dL POC Glucose (mg/dL) (75-99) mg/dL Calcium 8.4 L (8.7-10.3) mg/dL Iron (50-170) ug/dL TIBC (228-460) ug/dL % Saturation (12.00-45.00) Transferrin (204.0-354.0) mg/dL AST 57 H (13-35) U/L ALT 62 H (8-44) U/L Alkaline Phosphatase 604 H (41-126) U/L Total Protein 5.2 L (6.2-8.2) g/dL Albumin 3.0 L (3.8-4.9) g/dL Albumin/Globulin Ratio 1.39 L (1.60-3.17) g/dL Vitamin B12 (200.0-944.0) pg/mL Microbiology - Last 24 Hours (Table) 03/06/22 06:08 Blood Culture - Preliminary Blood No Growth after 72 hours 03/07/22 04:40 Blood Culture - Preliminary Blood No Growth after 48 hours 03/05/22 14:06 Blood Culture - Preliminary Blood No Growth after 72 hours
[2022-03-09 10:43] LABS: Basophils # (M) 0 X 10*3/uL (0.00-0.10); Eosinophils # (M) 0 X 10*3/uL (0.04-0.35); HCT 26.7 % (37.2-46.3); HGB 8.8 g/dL (12.0-15.0); Lymphocytes # (M) 0.35 X 10*3/uL (0.90-5.00); MCH 28.8 pg (27.0-32.0); MCV 87.3 fL (80.0-97.0); Mean Platelet Volume 9.9 fL (9.5-12.2); Metamyelocytes % 2 % (0-0); Monocytes # (M) 0.35 X 10*3/uL (0.20-1.00); Myelocytes % 2 % (0-0); NRBC Per 100 WBC 0.2 /100 WBCS (0.0-0.0); Neutrophils # (M) 7.74 X 10*3/uL (2.00-8.90); Neutrophils % (M) 88 %; Platelet Count 269 X 10*3/uL (140-440); RBC 3.06 X 10*6/uL (4.10-5.20); RDW 13.9 % (11.5-14.5); WBC 8.79 X 10*3/uL (4.50-10.00)
--- NOTE | 2022-03-09 10:43 | P.PCN ---
Date of Procedure: 03/09/22 Description of Procedure: Indication: Evaluation of prosthetic aortic valve Procedure Description: After explaining the procedure to the patient, it's risk and complications, blood pressure, heart rate and O2 saturation were monitored. The throat was sprayed with Cetacaine. Patient received 3 mg intravenous Versed, 50 mcg intravenous fentanyl. The probe was introduced into the esophagus without difficulty. Images were obtained. Following that, the probe was removed. There was no immediate complication. Findings: Left atrial size is normal, left atrial appendage is normal. Left ventricle size and systolic function are normal. The mitral valve and tricuspid valve are normal. The aortic valve is a prostatic valve with two tilting disks that appears to be normal. There is no evidence to suggest vegetations or thrombus. Descending thoracic aorta appears to be normal. Contrast bubble study revealed no shunting across the intra-atrial septum. No pericardial effusion Doppler: Pulse wave and color Doppler were obtained and revealed mild mitral and tricuspid regurgitation with physiologic aortic regurgitation. There is no shunting by color Doppler study Conclusion: 1. Normal left ventricular size and systolic function 2. Normal functioning of the prosthetic aortic valve with no evidence to suggest vegetations or thrombus. 3. Mild mitral and tricuspid regurgitation 4. No pericardial effusion 5. Normal appearance of the descending thoracic aorta
[2022-03-09 11:25] LABS: Glucose,Whole Blood 128 mg/dL (75-99)
[2022-03-09 12:18] LABS: INR 1.89 (0.90-1.11); Prothrombin Time 20.7 sec (9.9-11.9)
[2022-03-09 12:20] LABS: Appearance,BF Blood Tinged
[2022-03-09 12:21] LABS: Nucleated Cells, Body Fluid 5700 /uL; RBC, Body Fluid 6300 /uL
[2022-03-09 12:22] LABS: Mononuclear WBC,Body Fluid 15 %; Polynuclear WBC,Body Fluid 85 %; Total Cells Counted,Body Fluid 100
--- NOTE | 2022-03-09 13:33 | P.CNOR ---
History of Present Illness - [facility] Consult date: 03/09/22 Consult reason: joint pain (left knee pain) History of present illness: this is a 61-year-old female admitted with bacteremia secondary to open wounds of the foot. She has positive cultures for MSSA. She also complains of left knee pain and swelling. She does have history of total left knee arthroplasty in the past by Dr. Calles. She has had recent problems with the knee including pain, swelling and instability. We're consulted for orthopedic evaluation of the knee and to rule out infectious process in the knee. . Past Medical History Past Medical History: Diabetes Mellitus, GERD/Reflux, Hyperlipidemia, Hypertension, Pneumonia, Sleep Apnea/CPAP/BIPAP, Thyroid Disorder Additional Past Medical History / Comment(s): IDDM type II, neuropathy bilateral feet, rheumatic fever at age 11yrs/scar tissue on valve, aortic valve replacement (mechanical), pt states she had a blood clot around aortic valve prior to surgery, POLLO but does not tolerate Cpap, constipation, L ovarian cyst, hypothyroid. History of Any Multi-Drug Resistant Organisms: None Reported Year Discovered:: 2013 Past Surgical History: Appendectomy, Cardiac Valve Replacement, Section, Joint Replacement, Orthopedic Surgery Additional Past Surgical History / Comment(s): BLANCA, aortic valve replacement (mechanical), L total knee arthroplasty, L foot bunionectomy, EGDs, colonoscopy. Past Anesthesia/Blood Transfusion Reactions: Previous Problems w/ Anesthesia Additional Past Anesthesia/Blood Transfusion Reaction / Comm: Stopped breathing when a EGD was done Past Psychological History: Anxiety, Bipolar Additional Psychological History / Comment(s): Pt resides with her 2 children ages 15 and 19 yrs. She uses a cane to ambulate and occasionally a walker. She does not have a route driver's license, she gets to [email or web address] by bus or her sister. Smoking Status: Never smoker Past Alcohol Use History: Occasional Additional Past Alcohol Use History / Comment(s): Pt states she occasionally with have a couple beers on the weekend. She states she previously was a heavy beer drinker. Past Drug Use History: None Reported - Past Family History Father Additional Family Medical History / Comment(s): Bipolar and ETOH abuse Mother Additional Family Medical History / Comment(s): ETOH abuse Medications and Allergies Home Medications Medication Instructions Recorded Confirmed Type Ergocalciferol [Vitamin D2 (1250 1,250 mcg PO MO 02/02/21 03/02/22 History Mcg = 43513 Iu)] Metoprolol Succinate (ER) [Toprol 100 mg PO DAILY 02/02/21 03/02/22 History XL] OLANZapine [ZyPREXA] 20 mg PO HS 02/02/21 03/02/22 History Venlafaxine HCl [Effexor XR] 300 mg PO DAILY 02/02/21 03/02/22 History clonazePAM 1 mg PO BID PRN 02/02/21 03/02/22 History lisinopriL [Zestril] 5 mg PO DAILY 02/02/21 03/02/22 History Atorvastatin [Lipitor] 80 mg PO DAILY 02/07/21 03/02/22 History Empagliflozin [Jardiance] 10 mg PO DAILY 09/19/21 03/02/22 History traMADol HCL 50 mg PO TID 01/17/22 03/02/22 History Famotidine [Pepcid] 20 mg PO DAILY 03/02/22 03/02/22 History Insulin Aspart [NovoLOG Flexpen] 25 units SQ AC-TID 03/02/22 03/02/22 History Insulin Glargine,Hum.rec.anlog 35 unit SQ DAILY 03/02/22 03/02/22 History [Basaglar Kwikpen U-100] Insulin Glargine,Hum.rec.anlog 45 unit SQ HS 03/02/22 03/02/22 History [Basaglar Kwikpen U-100] Levothyroxine Sodium [Synthroid] 125 mcg PO DAILY 03/02/22 03/02/22 History Allergies Allergy/AdvReac Type Severity Reaction Status Date / Time codeine AdvReac Nausea & Verified 03/02/22 18:35 Vomiting Physical Examination his is a pleasant 61-year-old female in no acute distress. She is alert and oriented 3. Exam of the left lower extremity reveals no erythema or ecchymosis. Her surgical scar is well-healed. She has a +2-3 effusion of the knee. She is able to lift her leg off the bed independently. She has full foot and ankle motion without difficulty or pain. Motion to the knee is slightly limited secondary to swelling. Neurovascular status to the lower extremity is intact. Results - Labs Labs: Abnormal Lab Results - Last 24 Hours (Table) 03/08/22 03/08/2222 Range/Units 05:23 05:23 05:23 RBC 2.70 L (4.10-5.20) X 10*6/uL Hgb 7.9 L (12.0-15.0) g/dL Hct 23.6 L (37.2-46.3) % Absolute Nucleated RBC 0.03 H (0.00-0.00) X 10*3/uL Metamyelocytes % 1 H (0-0) % Myelocytes % 3 H (0-0) % Lymphocytes # (Manual) 0.32 L (0.90-5.00) X 10*3/uL Eosinophils # (Manual) 0 L (0.04-0.35) X 10*3/uL NRBC/100 WBC Diff 0.4 H (0.0-0.0) /100 WBCS Anion Gap 9.60 L (10.00-18.00) mmol/L BUN 7.1 L (9.0-27.0) mg/dL BUN/Creatinine Ratio 11.83 L (12.00-20.00) Ratio POC Glucose (mg/dL) (75-99) mg/dL Calcium 8.0 L (8.7-10.3) mg/dL Iron 24 L (50-170) ug/dL TIBC 227 L (228-460) ug/dL % Saturation 10.63 L (12.00-45.00) Transferrin 162.0 L (204.0-354.0) mg/dL AST 50 H (13-35) U/L ALT 49 H (8-44) U/L Alkaline Phosphatase 534 H (41-126) U/L Total Protein 5.1 L (6.2-8.2) g/dL Albumin 2.9 L (3.8-4.9) g/dL Albumin/Globulin Ratio 1.32 L (1.60-3.17) g/dL Vitamin B12 1878.0 H (200.0-944.0) pg/mL 03/08/22 03/08/22 03/08/22 Range/Units 11:11 13:47 15:59 RBC (4.10-5.20) X 10*6/uL Hgb (12.0-15.0) g/dL Hct (37.2-46.3) % Absolute Nucleated RBC (0.00-0.00) X 10*3/uL Metamyelocytes % (0-0) % Myelocytes % (0-0) % Lymphocytes # (Manual) (0.90-5.00) X 10*3/uL Eosinophils # (Manual) (0.04-0.35) X 10*3/uL NRBC/100 WBC Diff (0.0-0.0) /100 WBCS Anion Gap (10.00-18.00) mmol/L BUN (9.0-27.0) mg/dL BUN/Creatinine Ratio (12.00-20.00) Ratio POC Glucose (mg/dL) 157 H 123 H 47 L (75-99) mg/dL Calcium (8.7-10.3) mg/dL Iron (50-170) ug/dL TIBC (228-460) ug/dL % Saturation (12.00-45.00) Transferrin (204.0-354.0) mg/dL AST (13-35) U/L ALT (8-44) U/L Alkaline Phosphatase (41-126) U/L Total Protein (6.2-8.2) g/dL Albumin (3.8-4.9) g/dL Albumin/Globulin Ratio (1.60-3.17) g/dL Vitamin B12 (200.0-944.0) pg/mL 03/08/22 03/08/22 03/08/22 Range/Units 16:15 16:31 17:03 RBC (4.10-5.20) X 10*6/uL Hgb (12.0-15.0) g/dL Hct (37.2-46.3) % Absolute Nucleated RBC (0.00-0.00) X 10*3/uL Metamyelocytes % (0-0) % Myelocytes % (0-0) % Lymphocytes # (Manual) (0.90-5.00) X 10*3/uL Eosinophils # (Manual) (0.04-0.35) X 10*3/uL NRBC/100 WBC Diff (0.0-0.0) /100 WBCS Anion Gap (10.00-18.00) mmol/L BUN (9.0-27.0) mg/dL BUN/Creatinine Ratio (12.00-20.00) Ratio POC Glucose (mg/dL) 51 L 58 L 69 L (75-99) mg/dL Calcium (8.7-10.3) mg/dL Iron (50-170) ug/dL TIBC (228-460) ug/dL % Saturation (12.00-45.00) Transferrin (204.0-354.0) mg/dL AST (13-35) U/L ALT (8-44) U/L Alkaline Phosphatase (41-126) U/L Total Protein (6.2-8.2) g/dL Albumin (3.8-4.9) g/dL Albumin/Globulin Ratio (1.60-3.17) g/dL Vitamin B12 (200.0-944.0) pg/mL 03/08/22 03/08/22 Range/Units 18:09 20:40 RBC (4.10-5.20) X 10*6/uL Hgb (12.0-15.0) g/dL Hct (37.2-46.3) % Absolute Nucleated RBC (0.00-0.00) X 10*3/uL Metamyelocytes % (0-0) % Myelocytes % (0-0) % Lymphocytes # (Manual) (0.90-5.00) X 10*3/uL Eosinophils # (Manual) (0.04-0.35) X 10*3/uL NRBC/100 WBC Diff (0.0-0.0) /100 WBCS Anion Gap (10.00-18.00) mmol/L BUN (9.0-27.0) mg/dL BUN/Creatinine Ratio (12.00-20.00) Ratio POC Glucose (mg/dL) 103 H 163 H (75-99) mg/dL Calcium (8.7-10.3) mg/dL Iron (50-170) ug/dL TIBC (228-460) ug/dL % Saturation (12.00-45.00) Transferrin (204.0-354.0) mg/dL AST (13-35) U/L ALT (8-44) U/L Alkaline Phosphatase (41-126) U/L Total Protein (6.2-8.2) g/dL Albumin (3.8-4.9) g/dL Albumin/Globulin Ratio (1.60-3.17) g/dL Vitamin B12 (200.0-944.0) pg/mL Microbiology - Last 24 Hours (Table) 03/07/22 04:40 Blood Culture - Preliminary Blood No Growth after 48 hours 03/05/22 14:06 Blood Culture - Preliminary Blood No Growth after 72 hours 03/06/22 06:08 Blood Culture - Preliminary Blood No Growth after 48 hours H & H 03/02/22 03/03/22 03/04/22 Range/Units 17:53 04:45 12:37 Hgb 12.1 10.0 L 10.3 L (11.4-16.0) gm/dL Hct 33.6 L 29.6 L 30.7 L (34.0-46.0) % 03/06/22 03/07/22 03/08/22 Range/Units 10:33 04:40 05:23 Hgb 9.6 L 7.7 L 7.9 L (11.4-16.0) gm/dL Hct 28.8 L 23.9 L 23.6 L (34.0-46.0) % Coagulation 03/02/22 03/03/22 03/04/22 Range/Units 17:53 04:45 12:37 INR 2.2 H 1.49 H 1.6 H (<1.2) 03/05/22 03/06/22 03/07/22 Range/Units 08:06 06:08 04:40 INR 1.7 H 2.4 H 3.7 H (<1.2) 03/08/22 Range/Units 05:23 INR 3.5 H (<1.2) Result Diagrams: 03/09/22 04:59 03/09/22 04:59 Assessment and Plan (1) Bacteremia Current Visit: Yes Status: Acute Code(s): R78.81 - BACTEREMIA SNOMED Code(s): 7606738 (2) Status post total left knee replacement Current Visit: Yes Status: Acute Code(s): Z96.652 - PRESENCE OF LEFT ARTIFICIAL KNEE JOINT SNOMED Code(s): 9836514820445 Plan: the clinical findings are discussed with the patient. It is recommended she have an aspiration and the fluid sent to lab for evaluation. The left knee is aspirated using sterile technique, obtaining approximately 60 cc of brown, slightly cloudy fluid.The fluid is sent for culture and sensitivity, cell count and crystal identification. The patient may be discharged with her PICC line and follow-up with Dr. Gonzalez in 1-2 weeks.
--- NOTE | 2022-03-09 14:09 | IR ---
PICC LINE PLACEMENT: HISTORY: Infection requiring long-term antibiotic therapy PROCEDURE: fluoroscopic guidance of PICC line placement. COMPLICATIONS: None ANESTHESIA: 1. 1% Lidocaine locally. FINDINGS/TECHNIQUE: The procedure was explained to the patient. The risks, complications, benefits and alternatives were discussed and any questions were answered. Informed consent was obtained. The patient was placed supine on the fluoroscopic table and prepped and draped in the usual sterile fash ion. Existing midline was contacted and 0.018 guidewire was placed through the catheter. Catheter is removed over the guidewire. Previous access was in the left cephalic vein. The vein is patent. A 4-F sheath was placed over the guidewire. The guidewire and dilator were removed and a 4-F. PICC line w as placed through the sheath with the tip at the level of the SVC. The sheath was removed, the mile ter was flushed and sutured into position. The patient was stable throughout the procedure and remai marianne stable upon discharge from the Department of Radiology. The vein puncture was patent under ultrasound. A bales scale image was obtained to document patency of the vein punctured. All elements of the maximal barrier technique were utilized. FLUOROSCOPY TIME: 0.1 minutes and one image submitted IMPRESSION: Successful PICC line placement under ultrasound and fluoroscopic guidance.
--- NOTE | 2022-03-09 16:21 | P.PN ---
Subjective Progress Note Date: 03/09/22 Principal diagnosis: MSSA bacteremia and right foot cellulitis Patient is a 61 year female with a past medical history significant for diabetes mellitus presented to hospital record nausea no vomiting noticed to have MSSA bacteremia secondary to the right foot plantar wound, patient did have a CT of the right foot completed 03/04/2022 with no evidence of any drainable abscess. The patient is status post 2-D echocardiogram followed by BLANCA with evidence of any vegetation, patient did have aspirate of the left knee by orthopedics on 03/09/2022 On today's evaluation that is 03/09/2022, the patient remains to be afebrile, the patient is breathing comfortably on room air, the patient denies chest pain and denies pain to the right foot , the patient denies nausea no vomiting and no diarrhea, patient denies any worsening pain to the left the area recently and no redness Objective - Vital Signs Vital signs: Vital Signs Temp 97.6 F 03/09/22 14:00 Pulse 101 H 03/09/22 14:00 Resp 16 03/09/22 10:32 BP 109/61 03/09/22 14:00 Pulse Ox 97 03/09/22 10:32 Intake & Output 03/08/22 03/09/22 03/09/22 18:59 06:59 18:59 Intake Total 100 Balance 100 Weight 99.79 kg Intake: IV 100 Other: Voiding Method Toilet Toilet # Voids 1 # Bowel Movements 1 - Exam GENERAL DESCRIPTION: Middle-aged female lying in bed in no distress RESPIRATORY SYSTEM: Unlabored breathing , decreased breath sounds at bases HEART: S1 S2 regular rate and rhythm , ABDOMEN: Soft , no tenderness EXTREMITIES: No edema feet - Labs CBC & Chem 7: 03/09/22 04:59 03/09/22 04:59 Labs: Abnormal Lab Results - Last 24 Hours (Table) 03/08/22 03/08/22 03/08/22 Range/Units 05:23 15:59 16:15 RBC (4.10-5.20) X 10*6/uL Hgb (12.0-15.0) g/dL Hct (37.2-46.3) % Absolute Nucleated RBC (0.00-0.00) X 10*3/uL Metamyelocytes % (0-0) % Myelocytes % (0-0) % Lymphocytes # (Manual) (0.90-5.00) X 10*3/uL Eosinophils # (Manual) (0.04-0.35) X 10*3/uL NRBC/100 WBC Diff (0.0-0.0) /100 WBCS PT (9.9-11.9) sec INR (0.90-1.11) BUN (9.0-27.0) mg/dL Creatinine (0.6-1.5) mg/dL Glucose (70-110) mg/dL POC Glucose (mg/dL) 47 L 51 L (75-99) mg/dL Calcium (8.7-10.3) mg/dL Iron 24 L (50-170) ug/dL TIBC 227 L (228-460) ug/dL % Saturation 10.63 L (12.00-45.00) Transferrin 162.0 L (204.0-354.0) mg/dL AST (13-35) U/L ALT (8-44) U/L Alkaline Phosphatase (41-126) U/L Total Protein (6.2-8.2) g/dL Albumin (3.8-4.9) g/dL Albumin/Globulin Ratio (1.60-3.17) g/dL Vitamin B12 1878.0 H (200.0-944.0) pg/mL 03/08/22 03/08/22 03/08/22 Range/Units 16:31 17:03 18:09 RBC (4.10-5.20) X 10*6/uL Hgb (12.0-15.0) g/dL Hct (37.2-46.3) % Absolute Nucleated RBC (0.00-0.00) X 10*3/uL Metamyelocytes % (0-0) % Myelocytes % (0-0) % Lymphocytes # (Manual) (0.90-5.00) X 10*3/uL Eosinophils # (Manual) (0.04-0.35) X 10*3/uL NRBC/100 WBC Diff (0.0-0.0) /100 WBCS PT (9.9-11.9) sec INR (0.90-1.11) BUN (9.0-27.0) mg/dL Creatinine (0.6-1.5) mg/dL Glucose (70-110) mg/dL POC Glucose (mg/dL) 58 L 69 L 103 H (75-99) mg/dL Calcium (8.7-10.3) mg/dL Iron (50-170) ug/dL TIBC (228-460) ug/dL % Saturation (12.00-45.00) Transferrin (204.0-354.0) mg/dL AST (13-35) U/L ALT (8-44) U/L Alkaline Phosphatase (41-126) U/L Total Protein (6.2-8.2) g/dL Albumin (3.8-4.9) g/dL Albumin/Globulin Ratio (1.60-3.17) g/dL Vitamin B12 (200.0-944.0) pg/mL 03/08/22 03/09/22 03/09/22 Range/Units 20:40 04:59 04:59 RBC 3.06 L (4.10-5.20) X 10*6/uL Hgb 8.8 L (12.0-15.0) g/dL Hct 26.7 L (37.2-46.3) % Absolute Nucleated RBC 0.02 H (0.00-0.00) X 10*3/uL Metamyelocytes % 2 H (0-0) % Myelocytes % 2 H (0-0) % Lymphocytes # (Manual) 0.35 L (0.90-5.00) X 10*3/uL Eosinophils # (Manual) 0 L (0.04-0.35) X 10*3/uL NRBC/100 WBC Diff 0.2 H (0.0-0.0) /100 WBCS PT (9.9-11.9) sec INR (0.90-1.11) BUN 6.7 L (9.0-27.0) mg/dL Creatinine 0.5 L (0.6-1.5) mg/dL Glucose 54 L (70-110) mg/dL POC Glucose (mg/dL) 163 H (75-99) mg/dL Calcium 8.4 L (8.7-10.3) mg/dL Iron (50-170) ug/dL TIBC (228-460) ug/dL % Saturation (12.00-45.00) Transferrin (204.0-354.0) mg/dL AST 57 H (13-35) U/L ALT 62 H (8-44) U/L Alkaline Phosphatase 604 H (41-126) U/L Total Protein 5.2 L (6.2-8.2) g/dL Albumin 3.0 L (3.8-4.9) g/dL Albumin/Globulin Ratio 1.39 L (1.60-3.17) g/dL Vitamin B12 (200.0-944.0) pg/mL 03/09/22 03/09/22 Range/Units 04:59 11:23 RBC (4.10-5.20) X 10*6/uL Hgb (12.0-15.0) g/dL Hct (37.2-46.3) % Absolute Nucleated RBC (0.00-0.00) X 10*3/uL Metamyelocytes % (0-0) % Myelocytes % (0-0) % Lymphocytes # (Manual) (0.90-5.00) X 10*3/uL Eosinophils # (Manual) (0.04-0.35) X 10*3/uL NRBC/100 WBC Diff (0.0-0.0) /100 WBCS PT 20.7 H (9.9-11.9) sec INR 1.89 H (0.90-1.11) BUN (9.0-27.0) mg/dL Creatinine (0.6-1.5) mg/dL Glucose (70-110) mg/dL POC Glucose (mg/dL) 128 H (75-99) mg/dL Calcium (8.7-10.3) mg/dL Iron (50-170) ug/dL TIBC (228-460) ug/dL % Saturation (12.00-45.00) Transferrin (204.0-354.0) mg/dL AST (13-35) U/L ALT (8-44) U/L Alkaline Phosphatase (41-126) U/L Total Protein (6.2-8.2) g/dL Albumin (3.8-4.9) g/dL Albumin/Globulin Ratio (1.60-3.17) g/dL Vitamin B12 (200.0-944.0) pg/mL Microbiology - Last 24 Hours (Table) 03/09/22 08:30 Body Fluid Culture - Preliminary Aspirate 03/06/22 06:08 Blood Culture - Preliminary Blood No Growth after 72 hours 03/07/22 04:40 Blood Culture - Preliminary Blood No Growth after 48 hours 03/05/22 14:06 Blood Culture - Preliminary Blood No Growth after 72 hours Assessment and Plan (1) Pyrexia Current Visit: Yes Status: Acute Code(s): R50.9 - FEVER, UNSPECIFIED SNOMED Code(s): 614003952 Plan: 1patient presented to hospital with mental status changes fever and this patient did have a nausea and vomiting now with evidence of gram-positive bacteremia source likely right foot infection was apparently the patient did have a cut few days ago the area slightly fluctuant concerning for possible abscess and likely the source of her infection. 2blood cultures are still positive and blood cultures will be repeated to document clearance of bacteremia, echocardiogram did show functioning prosthetic aortic valve and no evidence of vegetation, BLANCA was negative for any vegetation 3-CT right foot was negative for any abscess, aspirated from the left knee is suspicious for septic arthritis, ortho on the case 4patient to continue with cefazolin 2 g every 8 hours , once cleared from other consultants she'll be able to go home on IV antibiotic and close outpatient follow-up Time with Patient: Less than 30
[2022-03-09] MEDS ORDERED: WARFARIN 10 MG TAB PO ONE (18:00)
[2022-03-09 20:09] LABS: Synovial Fld Crystals None Seen (None Seen)
[2022-03-09] MEDS: OLANZapine 10 MG TAB PO SCH (20:31)
[2022-03-09 20:33] LABS: Glucose,Whole Blood 195 mg/dL (75-99)
[2022-03-10 02:45] LABS: Glucose,Whole Blood 157 mg/dL (75-99)
[2022-03-10] MEDS: IBUPROFEN 400 MG TAB PO PRN ×3 (04:05→20:56)
[2022-03-10] MEDS: clonazePAM 1 MG TAB PO PRN ×2 (04:09→22:50)
[2022-03-10] MEDS: LEVOTHYROXINE 125 MCG TAB PO SCH (05:51)
[2022-03-10 07:08] LABS: Glucose,Whole Blood 104 mg/dL (75-99)
[2022-03-10] MEDS: ALBUTEROL NEBULIZED 2.5 MG/3 ML INHALATION PRN (07:58)
[2022-03-10] MEDS: INSULIN ASPART (NovoLOG) 100 UNIT/ML VIAL SQ SCH ×3 (08:19→17:09)
[2022-03-10] MEDS: VENLAFAXINE HCL ER 150 MG CAP PO SCH (08:27)
[2022-03-10] MEDS: PANTOPRAZOLE 40 MG/10 ML VIAL IVP SCH (08:27)
[2022-03-10] MEDS: lisinopriL 5 MG TAB PO SCH (08:28)
[2022-03-10] MEDS: METOPROLOL SUCCINATE (ER) 100 MG TAB.ER.24H PO SCH (08:28)
[2022-03-10] MEDS: traMADol 50 MG TAB PO SCH ×3 (08:28→20:57)
[2022-03-10] MEDS: INSULIN DETEMIR (LEVEMIR) 100 UNIT/ML SYR SQ SCH ×2 (08:28→20:56)
[2022-03-10] MEDS: SODIUM CHLORIDE 0.9% 1,000 ML IV SCH ×2 (08:30→20:55)
[2022-03-10 08:51] LABS: HCT 26.2 % (37.2-46.3); HGB 8.5 g/dL (12.0-15.0); MCH 28.3 pg (27.0-32.0); MCHC 32.4 g/dL (32.0-37.0); MCV 87.3 fL (80.0-97.0); Mean Platelet Volume 9.7 fL (9.5-12.2); NRBC Per 100 WBC 0.3 /100 WBCS (0.0-0.0); Platelet Count 240 X 10*3/uL (140-440); RDW 13.8 % (11.5-14.5); WBC 7.84 X 10*3/uL (4.50-10.00)
[2022-03-10 09:16] LABS: African American GFR (CKD) 122.8 (60.0-200.0); Albumin 3.1 g/dL (3.8-4.9); Albumin/Globulin Ratio 1.41 (1.60-3.17); Anion Gap 6.4 mmol/L (10.00-18.00); BUN/Creat Ratio 17.8 Ratio (12.00-20.00); Blood Urea Nitrogen 8.9 mg/dL (9.0-27.0); Calcium 8.4 mg/dL (8.7-10.3); Carbon Dioxide 30.6 mmol/L (20.0-27.5); Globulin 2.2 g/dL (1.6-3.3); Non-African American GFR(CKD) 105.9 (60.0-200.0); Total Bilirubin 0.3 mg/dL (0.30-1.20); Total Protein 5.3 g/dL (6.2-8.2)
[2022-03-10 09:30] LABS: INR 1.62 (0.90-1.11); Prothrombin Time 17.9 sec (9.9-11.9)
[2022-03-10 09:42] LABS: Basophils # (M) 0 X 10*3/uL (0.00-0.10); Eosinophils # (M) 0 X 10*3/uL (0.04-0.35); Lymphocytes # (M) 0.63 X 10*3/uL (0.90-5.00); Metamyelocytes % 1 % (0-0); Monocytes # (M) 0.16 X 10*3/uL (0.20-1.00); Myelocytes % 1 % (0-0); Neutrophils % (M) 88 %; RBC Morphology NORMAL
--- NOTE | 2022-03-10 10:18 | P.PN ---
Subjective Progress Note Date: 03/10/22 Linda Isaac, is a 61-year-old female who presented to [facility] emergency room with a chief complaint of fever or chills and mental status changes. She was evaluated in the emergency room vital examination on presentation revealed a temperature of 105.7 pulse 116 respiration 18 and blood pressure 128/78 pulse ox 94% on room air Laboratory data revealed a white blood count of 5.4 hemoglobin 12.1 platelet count 204 sodium 127 potassium 4.3 chloride 95 CO2 24 BUN 17 creatinine 1.12 AST elevated at 72 ALT 36 influenza A and B titers and COVID-19 PCR were negative, urine analysis was not done, INR was 2.2 Testing in the emergency room revealed chest x-ray done in the emergency room revealed scattered opacities which may represent atypical pneumonia, computed tomography scan of the brain done in the emergency room without contrast revealed no acute intracranial process, computed tomography scan of the abdomen and pelvis done in the emergency room revealed a right thigh enlarged lymph node, bladder wall thickening, and hepatic steatosis. Patient was admitted to medical floor for further evaluation and treatment. She was started on IV antibiotic Rocephin and Zithromax in the emergency room for presumed pneumonia, shortly after admission patient had positive blood culture for gram-negative bacilli and IV antibiotics were changed to Zosyn and Levaquin, infectious disease consultation was requested. Past medical history is significant for history of aortic valve replacement with mechanical valve patient is maintained on Coumadin, history of morbid obesity, history of obstructive sleep apnea, history of hypothyroidism, history of bipolar disorder with schizoaffective disorder, history of hypertension, history of hyperlipidemia, and history of diabetes mellitus. On review of systems at this time patient is alert and oriented 3 in no apparent distress she is complaining of episodes on and off of shaking chills, otherwise she denies any complaints at this time there is no headache or dizziness no chest pain no shortness of breath no cough no nausea or vomiting no abdominal pain no diarrhea and no urinary symptoms. On 03/04/2022 patient is alert and oriented 3. CT of right foot ordered per infectious disease to rule out abscess. Patient is positive for bacteremia remains on IV antibiotics. Patient stating that she would like to go home explained patient that she had positive blood culture requiring IV antibiotics. Lab work currently pending. Current vitals temp 98.6, heart rate 75, respiratory rate 17, blood pressure 100/65 patient sating 96% on room air On 03/05/2022 patient is alert and oriented 3. Patient is positive for bacteremia remains on IV antibiotics. Patient stating that she would like to go home explained patient that she had positive blood culture requiring IV antibiotics. Lab work currently pending. Current vitals temp 98.6, heart rate 70, respiratory rate 18, blood pressure 108/70 patient sating 96% on room air On 03/06/2022 patient is alert and oriented 3 patient having increased wheezing will order chest x-ray, BNP and D echo. Patient remains on IV antibiotics repeat blood cultures have been ordered On 03/07/2022 patient is alert and oriented 3 patient remains on IV septal is Avinash. 2-D echo completed showing EF of 55-60%. Liver enzymes continue to be elevated will DC Lipitor in order liver ultrasound. This time patient denies chest pain or shortness of breath. Patient denies nausea vomiting or diarrhea. Patient denies any urinary burning or frequency. On 03/08/2022 patient was seen and examined on the medical floor she is alert and oriented 3 in no apparent distress, she is complaining of generalized fatigue and left sided rib pain, related to fall prior to admission and left sided chest trauma, patient is also complaining of left sided knee pain. Case was discussed with Dr. Varela cardiology, he is recommending BLANCA . This will be scheduled for tomorrow, also orthopedic surgery consultation will be requested in regard to left knee pain and swelling. Continue with current man agement with IV antibiotics, infectious disease following On 03/09/2022 patient is alert and oriented 3. Patient underwent drainage of left knee per orthopedics and associates. Patient also undergoing BLANCA today per cardiology. At this time patient denies chest pain or shortness of breath. Pat ient denies nausea vomiting or diarrhea. Patient denies any urinary burning or frequency. On 03/10/2022 patient is alert and oriented 3 currently resting comfortably in chair. BLANCA was completed on 03/09/2022 awaiting report. Patient also had PICC line placement. Anticipate discharge 03/12/2022 IV antibiotics per infectious disease. Cytology from knee aspiration pending orthopedics A ssociates are following. At this time patient denies chest pain or shortness of breath. Patient denies nausea vomiting diarrhea. Subtherapeutic 1.62. Patient started on Lovenox 1 mg/kg twice a day until INR therapeutic for heart valve goal 2.5-3.5. Pharmacy to dose Coumadin ordered As of 03/11/[address] Esparza will be covering for Dr. Romo Objective - Vital Signs Vital signs: Vital Signs Temp 97.8 F 03/10/22 08:00 Pulse 88 03/10/22 08:07 Resp 18 03/10/22 08:00 BP 147/83 03/10/22 08:00 Pulse Ox 96 03/10/22 08:00 Intake & Output 03/09/22 03/10/22 03/10/22 18:59 06:59 18:59 Intake Total 100 Output Total 750 Balance -650 Intake: IV 100 Output: Urine 750 Other: Voiding Method Toilet # Voids 5 1 # Bowel Movements 1 - Exam In general patient is alert and oriented x 3 in no distress HEENT head normocephalic and atraumatic Neck is supple no JVD no goiter no lymphadenopathy no carotid bruit Chest examination reveals a scattered crackles bilaterally no wheezing Cardiac exam reveals regular heart sounds S1 and S2 with stools over 6 systolic murmur in the right sternal border Abdomen is soft nontender no organomegaly with normal bowel sounds Extremity exam reveals no edema no cyanosis or clubbing Neurological examination reveals no gross focal deficits - Labs CBC & Chem 7: 03/10/22 05:38 03/10/22 05:38 Labs: Abnormal Lab Results - Last 24 Hours (Table) 03/09/22 03/09/22 03/09/22 Range/Units 04:59 04:59 11:23 RBC 3.06 L (4.10-5.20) X 10*6/uL Hgb 8.8 L (12.0-15.0) g/dL Hct 26.7 L (37.2-46.3) % Absolute Nucleated RBC 0.02 H (0.00-0.00) X 10*3/uL Metamyelocytes % 2 H (0-0) % Myelocytes % 2 H (0-0) % Lymphocytes # (Manual) 0.35 L (0.90-5.00) X 10*3/uL Monocytes # (Manual) (0.20-1.00) X 10*3/uL Eosinophils # (Manual) 0 L (0.04-0.35) X 10*3/uL NRBC/100 WBC Diff 0.2 H (0.0-0.0) /100 WBCS PT 20.7 H (9.9-11.9) sec INR 1.89 H (0.90-1.11) Carbon Dioxide (20.0-27.5) mmol/L Anion Gap (10.00-18.00) mmol/L BUN (9.0-27.0) mg/dL Creatinine (0.6-1.5) mg/dL Glucose (70-110) mg/dL POC Glucose (mg/dL) 128 H (75-99) mg/dL Calcium (8.7-10.3) mg/dL AST (13-35) U/L Alkaline Phosphatase (41-126) U/L Total Protein (6.2-8.2) g/dL Albumin (3.8-4.9) g/dL Albumin/Globulin Ratio (1.60-3.17) g/dL 03/09/22 03/10/22 03/10/22 Range/Units 20:32 02:43 05:38 RBC 3.00 L (4.10-5.20) X 10*6/uL Hgb 8.5 L (12.0-15.0) g/dL Hct 26.2 L (37.2-46.3) % Absolute Nucleated RBC 0.02 H (0.00-0.00) X 10*3/uL Metamyelocytes % 1 H (0-0) % Myelocytes % 1 H (0-0) % Lymphocytes # (Manual) 0.63 L (0.90-5.00) X 10*3/uL Monocytes # (Manual) 0.16 L (0.20-1.00) X 10*3/uL Eosinophils # (Manual) 0 L (0.04-0.35) X 10*3/uL NRBC/100 WBC Diff 0.3 H (0.0-0.0) /100 WBCS PT (9.9-11.9) sec INR (0.90-1.11) Carbon Dioxide (20.0-27.5) mmol/L Anion Gap (10.00-18.00) mmol/L BUN (9.0-27.0) mg/dL Creatinine (0.6-1.5) mg/dL Glucose (70-110) mg/dL POC Glucose (mg/dL) 195 H 157 H (75-99) mg/dL Calcium (8.7-10.3) mg/dL AST (13-35) U/L Alkaline Phosphatase (41-126) U/L Total Protein (6.2-8.2) g/dL Albumin (3.8-4.9) g/dL Albumin/Globulin Ratio (1.60-3.17) g/dL 03/10/22 03/10/22 03/10/22 Range/Units 05:38 05:38 07:06 RBC (4.10-5.20) X 10*6/uL Hgb (12.0-15.0) g/dL Hct (37.2-46.3) % Absolute Nucleated RBC (0.00-0.00) X 10*3/uL Metamyelocytes % (0-0) % Myelocytes % (0-0) % Lymphocytes # (Manual) (0.90-5.00) X 10*3/uL Monocytes # (Manual) (0.20-1.00) X 10*3/uL Eosinophils # (Manual) (0.04-0.35) X 10*3/uL NRBC/100 WBC Diff (0.0-0.0) /100 WBCS PT 17.9 H (9.9-11.9) sec INR 1.62 H (0.90-1.11) Carbon Dioxide 30.6 H (20.0-27.5) mmol/L Anion Gap 6.40 L (10.00-18.00) mmol/L BUN 8.9 L (9.0-27.0) mg/dL Creatinine 0.5 L (0.6-1.5) mg/dL Glucose 116 H (70-110) mg/dL POC Glucose (mg/dL) 104 H (75-99) mg/dL Calcium 8.4 L (8.7-10.3) mg/dL AST 37 H (13-35) U/L Alkaline Phosphatase 511 H (41-126) U/L Total Protein 5.3 L (6.2-8.2) g/dL Albumin 3.1 L (3.8-4.9) g/dL Albumin/Globulin Ratio 1.41 L (1.60-3.17) g/dL Microbiology - Last 24 Hours (Table) 03/06/22 06:08 Blood Culture - Preliminary Blood No Growth after 96 hours 03/07/22 04:40 Blood Culture - Preliminary Blood No Growth after 72 hours 03/09/22 08:30 Gram Stain - Preliminary Aspirate Body Fluid Culture - Preliminary 03/05/22 14:06 Blood Culture - Preliminary Blood No Growth after 96 hours Assessment and Plan Plan: 1. Sepsis, with positive blood culture 2. Possible underlying pneumonia 3. Hyponatremia on presentation 4. Mental status changes on presentation likely related to sepsis and elevated temperature, improving 5. Underlying history of insulin-dependent diabetes mellitus 6. Underlying history of aortic valve replacement with mechanical valve patient is maintained on Coumadin 7. Underlying history of hypertension 8. Underlying history of hyperlipidemia 9. Underlying history of hypothyroidism 10. Underlying history of bipolar disorder, and schizoaffective disorder 11. Elevated liver enzymes. Will order liver ultrasound and Lipitor DC'd 12. Elevated BNP. 2-D echo completed showing EF of 50-55% will consult card iology services 13. Left knee swelling. Status post drainage of left knee edema per orthopedic services At this time patient is admitted to medical floor status post drainage of left knee BLANCA plan for 03/09/2022 Patient will require IV antibiotics upon discharge per ID recommendation Patient currently maintained on Lovenox 1 mg/kg twice a day until therapeutic INR. Pharmacy to dose Coumadin Coumadin was resumed will monitor INR daily, goal 2.5-3.5 due to mechanical valve
[2022-03-10 11:41] LABS: Glucose,Whole Blood 150 mg/dL (75-99)
[2022-03-10] MEDS: ACETAMINOPHEN TAB 325 MG TAB PO PRN (16:10)
[2022-03-10 16:35] LABS: Glucose,Whole Blood 63 mg/dL (75-99)
[2022-03-10 16:54] LABS: Glucose,Whole Blood 102 mg/dL (75-99)
--- NOTE | 2022-03-10 17:53 | P.PN ---
Subjective Progress Note Date: 03/10/22 Principal diagnosis: MSSA bacteremia and right foot cellulitis Patient is a 61 year female with a past medical history significant for diabetes mellitus presented to hospital record nausea no vomiting noticed to have MSSA bacteremia secondary to the right foot plantar wound, patient did have a CT of the right foot completed 03/04/2022 with no evidence of any drainable abscess. The patient is status post 2-D echocardiogram followed by BLANCA with evidence of any vegetation, patient did have aspirate of the left knee by orthopedics on 03/09/2022 On today's evaluation that is 03/10/2022, the patient denies any fever or chills, the patient is breathing comfortably on room air, the patient denies chest pain shortness of breath or cough, denies nausea no vomiting no abdominal pain no diarrhea some swelling to the left knee but no worsening Objective - Vital Signs Vital signs: Vital Signs Temp 98.9 F 03/10/22 14:00 Pulse 85 03/10/22 14:00 Resp 18 03/10/22 14:00 BP 147/87 03/10/22 14:00 Pulse Ox 96 03/10/22 14:00 Intake & Output 03/09/22 03/10/22 03/10/22 18:59 06:59 18:59 Intake Total 100 900 Output Total 750 Balance -650 900 Intake: IV 100 Intake, IV Titration 900 Amount Sodium Chloride 0.9% 1, 800 000 ml @ 100 mls/hr IV . Q10H TIFFANIE Rx#:[id number] ceFAZolin 2 gm In Sodium 100 Chloride 0.9% 50 ml @ 100 mls/hr IVPB Q8HR TIFFANIE Rx# :[id number] Output: Urine 750 Other: Voiding Method Toilet # Voids 5 1 # Bowel Movements 1 - Exam GENERAL DESCRIPTION: Middle-aged female lying in bed in no distress RESPIRATORY SYSTEM: Unlabored breathing , decreased breath sounds at bases HEART: S1 S2 regular rate and rhythm , ABDOMEN: Soft , no tenderness EXTREMITIES: No edema feet - Labs CBC & Chem 7: 03/10/22 05:38 03/10/22 05:38 Labs: Abnormal Lab Results - Last 24 Hours (Table) 03/09/22 03/10/22 03/10/22 Range/Units 20:32 02:43 05:38 RBC 3.00 L (4.10-5.20) X 10*6/uL Hgb 8.5 L (12.0-15.0) g/dL Hct 26.2 L (37.2-46.3) % Absolute Nucleated RBC 0.02 H (0.00-0.00) X 10*3/uL Metamyelocytes % 1 H (0-0) % Myelocytes % 1 H (0-0) % Lymphocytes # (Manual) 0.63 L (0.90-5.00) X 10*3/uL Monocytes # (Manual) 0.16 L (0.20-1.00) X 10*3/uL Eosinophils # (Manual) 0 L (0.04-0.35) X 10*3/uL NRBC/100 WBC Diff 0.3 H (0.0-0.0) /100 WBCS PT (9.9-11.9) sec INR (0.90-1.11) Carbon Dioxide (20.0-27.5) mmol/L Anion Gap (10.00-18.00) mmol/L BUN (9.0-27.0) mg/dL Creatinine (0.6-1.5) mg/dL Glucose (70-110) mg/dL POC Glucose (mg/dL) 195 H 157 H (75-99) mg/dL Calcium (8.7-10.3) mg/dL AST (13-35) U/L Alkaline Phosphatase (41-126) U/L Total Protein (6.2-8.2) g/dL Albumin (3.8-4.9) g/dL Albumin/Globulin Ratio (1.60-3.17) g/dL 03/10/22 03/10/22 03/10/22 Range/Units 05:38 05:38 07:06 RBC (4.10-5.20) X 10*6/uL Hgb (12.0-15.0) g/dL Hct (37.2-46.3) % Absolute Nucleated RBC (0.00-0.00) X 10*3/uL Metamyelocytes % (0-0) % Myelocytes % (0-0) % Lymphocytes # (Manual) (0.90-5.00) X 10*3/uL Monocytes # (Manual) (0.20-1.00) X 10*3/uL Eosinophils # (Manual) (0.04-0.35) X 10*3/uL NRBC/100 WBC Diff (0.0-0.0) /100 WBCS PT 17.9 H (9.9-11.9) sec INR 1.62 H (0.90-1.11) Carbon Dioxide 30.6 H (20.0-27.5) mmol/L Anion Gap 6.40 L (10.00-18.00) mmol/L BUN 8.9 L (9.0-27.0) mg/dL Creatinine 0.5 L (0.6-1.5) mg/dL Glucose 116 H (70-110) mg/dL POC Glucose (mg/dL) 104 H (75-99) mg/dL Calcium 8.4 L (8.7-10.3) mg/dL AST 37 H (13-35) U/L Alkaline Phosphatase 511 H (41-126) U/L Total Protein 5.3 L (6.2-8.2) g/dL Albumin 3.1 L (3.8-4.9) g/dL Albumin/Globulin Ratio 1.41 L (1.60-3.17) g/dL 03/10/22 Range/Units 11:40 RBC (4.10-5.20) X 10*6/uL Hgb (12.0-15.0) g/dL Hct (37.2-46.3) % Absolute Nucleated RBC (0.00-0.00) X 10*3/uL Metamyelocytes % (0-0) % Myelocytes % (0-0) % Lymphocytes # (Manual) (0.90-5.00) X 10*3/uL Monocytes # (Manual) (0.20-1.00) X 10*3/uL Eosinophils # (Manual) (0.04-0.35) X 10*3/uL NRBC/100 WBC Diff (0.0-0.0) /100 WBCS PT (9.9-11.9) sec INR (0.90-1.11) Carbon Dioxide (20.0-27.5) mmol/L Anion Gap (10.00-18.00) mmol/L BUN (9.0-27.0) mg/dL Creatinine (0.6-1.5) mg/dL Glucose (70-110) mg/dL POC Glucose (mg/dL) 150 H (75-99) mg/dL Calcium (8.7-10.3) mg/dL AST (13-35) U/L Alkaline Phosphatase (41-126) U/L Total Protein (6.2-8.2) g/dL Albumin (3.8-4.9) g/dL Albumin/Globulin Ratio (1.60-3.17) g/dL Microbiology - Last 24 Hours (Table) 03/09/22 08:30 Gram Stain - Preliminary Aspirate Body Fluid Culture - Preliminary 03/06/22 06:08 Blood Culture - Preliminary Blood No Growth after 96 hours 03/07/22 04:40 Blood Culture - Preliminary Blood No Growth after 72 hours 03/05/22 14:06 Blood Culture - Preliminary Blood No Growth after 96 hours Assessment and Plan (1) Pyrexia Current Visit: Yes Status: Acute Code(s): R50.9 - FEVER, UNSPECIFIED SNOMED Code(s): 394321294 Plan: 1patient presented to hospital with mental status changes fever and this pat ient did have a nausea and vomiting now with evidence of gram-positive bacteremia source likely right foot infection was apparently the patient did have a cut few days ago the area slightly fluctuant concerning for possible abscess and likely the source of her infection. 2blood cultures are still positive and blood cultures will be repeated to document clearance of bacteremia, echocardiogram did show functioning prosthetic aortic valve and no evidence of vegetation, BLANCA was negative for any vegetation 3-CT right foot was negative for any abscess, aspirated from the left knee is suspicious for septic arthritis, ortho on the case, the patient left knee aspirate cultures are currently pending 4patient to continue with cefazolin 2 g every 8 hours , and monitor clinical course closely Time with Patient: Less than 30
[2022-03-10] MEDS ORDERED: WARFARIN 10 MG TAB PO ONE (18:00)
[2022-03-10] MEDS ORDERED: diphenhydrAMINE 25 MG CAP PO PRN (20:16)
[2022-03-10 20:30] LABS: Glucose,Whole Blood 133 mg/dL (75-99)
[2022-03-10] MEDS: OLANZapine 10 MG TAB PO SCH (20:56)
[2022-03-10] MEDS: ENOXAPARIN 100 MG/ML SYRINGE SQ SCH (21:03)
[2022-03-10 23:35] LABS: Glucose,Whole Blood 101 mg/dL (75-99)
[2022-03-11] MEDS: ACETAMINOPHEN TAB 325 MG TAB PO PRN ×4 (00:27→20:59)
[2022-03-11 00:33] LABS: Glucose,Whole Blood 127 mg/dL (75-99)
[2022-03-11 06:02] LABS: INR 1.5 (<1.2); Prothrombin Time 15.5 sec (9.0-12.0)
[2022-03-11] MEDS: SODIUM CHLORIDE 0.9% 1,000 ML IV SCH ×3 (06:03→20:01)
[2022-03-11] MEDS: LEVOTHYROXINE 125 MCG TAB PO SCH (06:03)
[2022-03-11 06:56] LABS: Glucose,Whole Blood 79 mg/dL (75-99)
[2022-03-11] MEDS: INSULIN ASPART (NovoLOG) 100 UNIT/ML VIAL SQ SCH ×3 (07:03→16:18)
[2022-03-11] MEDS: PANTOPRAZOLE 40 MG/10 ML VIAL IVP SCH (08:19)
[2022-03-11] MEDS: INSULIN DETEMIR (LEVEMIR) 100 UNIT/ML SYR SQ SCH ×2 (08:19→19:57)
[2022-03-11] MEDS: ENOXAPARIN 100 MG/ML SYRINGE SQ SCH ×2 (08:19→19:56)
[2022-03-11] MEDS: VENLAFAXINE HCL ER 150 MG CAP PO SCH (08:20)
[2022-03-11] MEDS: traMADol 50 MG TAB PO SCH ×3 (08:20→20:48)
[2022-03-11] MEDS: METOPROLOL SUCCINATE (ER) 100 MG TAB.ER.24H PO SCH (08:20)
[2022-03-11] MEDS: lisinopriL 5 MG TAB PO SCH (08:20)
[2022-03-11 08:50] LABS: HCT 26.2 % (37.2-46.3); HGB 8.3 g/dL (12.0-15.0); MCH 27.9 pg (27.0-32.0); MCHC 31.7 g/dL (32.0-37.0); MCV 87.9 fL (80.0-97.0); Mean Platelet Volume 9.8 fL (9.5-12.2); NRBC Per 100 WBC 0 /100 WBCS (0.0-0.0); Platelet Count 226 X 10*3/uL (140-440); RBC 2.98 X 10*6/uL (4.10-5.20); RDW 13.5 % (11.5-14.5); WBC 7.62 X 10*3/uL (4.50-10.00)
[2022-03-11 09:20] LABS: Basophils # (M) 0.15 X 10*3/uL (0.00-0.10); Eosinophils # (M) 0.08 X 10*3/uL (0.04-0.35); Lymphocytes # (M) 0.76 X 10*3/uL (0.90-5.00); Metamyelocytes % 1 % (0-0); Monocytes # (M) 0.15 X 10*3/uL (0.20-1.00); Myelocytes % 3 % (0-0); Neutrophils # (M) 6.17 X 10*3/uL (2.00-8.90); Neutrophils % (M) 81 %; RBC Morphology NORMAL
[2022-03-11 10:51] LABS: Glucose,Whole Blood 112 mg/dL (75-99)
[2022-03-11] MEDS: FLUTICASONE 50MCG/SPRAY NASAL 16GM EA NOSTRIL SCH (12:21)
[2022-03-11 14:23] LABS: African American GFR (CKD) 115.6 (60.0-200.0); Albumin 2.9 g/dL (3.8-4.9); Albumin/Globulin Ratio 1.26 (1.60-3.17); BUN/Creat Ratio 15.83 Ratio (12.00-20.00); Blood Urea Nitrogen 9.5 mg/dL (9.0-27.0); Calcium 8.6 mg/dL (8.7-10.3); Globulin 2.3 g/dL (1.6-3.3); Non-African American GFR(CKD) 99.8 (60.0-200.0); Potassium 4.1 mmol/L (3.5-5.5); Total Bilirubin 0.2 mg/dL (0.30-1.20); Total Protein 5.2 g/dL (6.2-8.2)
[2022-03-11 14:43] LABS: Anion Gap 11.5 mmol/L (10.00-18.00); Carbon Dioxide 24.5 mmol/L (20.0-27.5)
[2022-03-11 16:14] LABS: Glucose,Whole Blood 132 mg/dL (75-99)
--- NOTE | 2022-03-11 17:50 | P.PN ---
Subjective Progress Note Date: 03/11/22 Principal diagnosis: MSSA bacteremia and right foot cellulitis Patient is a 61 year female with a past medical history significant for diabetes mellitus presented to hospital record nausea no vomiting noticed to have MSSA bacteremia secondary to the right foot plantar wound, patient did have a CT of the right foot completed 03/04/2022 with no evidence of any drainable abscess. The patient is status post 2-D echocardiogram followed by BLANCA with evidence of any vegetation, patient did have aspirate of the left knee by orthopedics on 03/09/2022 On today's evaluation that is 03/11/2022, the patient remains to be afebrile, the patient is breathing comfortably on room air, the patient denies chest pain shortness of breath or cough, the patient denies nausea no vomiting no abdominal pain no diarrhea , the patient pain to the left knee is currently controlled Objective - Vital Signs Vital signs: Vital Signs Temp 99.4 F 03/11/22 14:00 Pulse 85 03/11/22 14:00 Resp 18 03/11/22 14:00 BP 165/95 03/11/22 14:00 Pulse Ox 97 03/11/22 14:00 Intake & Output 03/10/22 03/11/22 03/11/22 18:59 06:59 18:59 Intake Total 2170 850 Balance 2170 850 Intake: Intake, IV Titration 900 850 Amount Sodium Chloride 0.9% 1, 800 800 000 ml @ 100 mls/hr IV . Q10H TIFFANIE Rx#:[id number] ceFAZolin 2 gm In Sodium 100 50 Chloride 0.9% 50 ml @ 100 mls/hr IVPB Q8HR TIFFANIE Rx# :[id number] Oral 1270 Other: Voiding Method Toilet # Voids 3 4 - Exam GENERAL DESCRIPTION: Middle-aged female lying in bed in no distress RESPIRATORY SYSTEM: Unlabored breathing , decreased breath sounds at bases HEART: S1 S2 regular rate and rhythm , ABDOMEN: Soft , no tenderness EXTREMITIES: No edema feet - Labs CBC & Chem 7: 03/11/22 04:45 03/11/22 04:45 Labs: Abnormal Lab Results - Last 24 Hours (Table) 03/10/22 03/10/22 03/10/22 Range/Units 16:34 16:53 20:29 RBC (4.10-5.20) X 10*6/uL Hgb (12.0-15.0) g/dL Hct (37.2-46.3) % MCHC (32.0-37.0) g/dL Metamyelocytes % (0-0) % Myelocytes % (0-0) % Lymphocytes # (Manual) (0.90-5.00) X 10*3/uL Monocytes # (Manual) (0.20-1.00) X 10*3/uL Basophils # (Manual) (0.00-0.10) X 10*3/uL PT (9.0-12.0) sec INR (<1.2) Glucose (70-110) mg/dL POC Glucose (mg/dL) 63 L 102 H 133 H (75-99) mg/dL Calcium (8.7-10.3) mg/dL Total Bilirubin (0.30-1.20) mg/dL Alkaline Phosphatase (41-126) U/L Total Protein (6.2-8.2) g/dL Albumin (3.8-4.9) g/dL Albumin/Globulin Ratio (1.60-3.17) g/dL 03/10/22 03/11/22 03/11/22 Range/Units 23:33 00:31 04:45 RBC 2.98 L (4.10-5.20) X 10*6/uL Hgb 8.3 L (12.0-15.0) g/dL Hct 26.2 L (37.2-46.3) % MCHC 31.7 L (32.0-37.0) g/dL Metamyelocytes % 1 H (0-0) % Myelocytes % 3 H (0-0) % Lymphocytes # (Manual) 0.76 L (0.90-5.00) X 10*3/uL Monocytes # (Manual) 0.15 L (0.20-1.00) X 10*3/uL Basophils # (Manual) 0.15 H (0.00-0.10) X 10*3/uL PT (9.0-12.0) sec INR (<1.2) Glucose (70-110) mg/dL POC Glucose (mg/dL) 101 H 127 H (75-99) mg/dL Calcium (8.7-10.3) mg/dL Total Bilirubin (0.30-1.20) mg/dL Alkaline Phosphatase (41-126) U/L Total Protein (6.2-8.2) g/dL Albumin (3.8-4.9) g/dL Albumin/Globulin Ratio (1.60-3.17) g/dL 03/11/22 03/11/22 03/11/22 Range/Units 04:45 04:45 10:50 RBC (4.10-5.20) X 10*6/uL Hgb (12.0-15.0) g/dL Hct (37.2-46.3) % MCHC (32.0-37.0) g/dL Metamyelocytes % (0-0) % Myelocytes % (0-0) % Lymphocytes # (Manual) (0.90-5.00) X 10*3/uL Monocytes # (Manual) (0.20-1.00) X 10*3/uL Basophils # (Manual) (0.00-0.10) X 10*3/uL PT 15.5 H (9.0-12.0) sec INR 1.5 H (<1.2) Glucose 123 H (70-110) mg/dL POC Glucose (mg/dL) 112 H (75-99) mg/dL Calcium 8.6 L (8.7-10.3) mg/dL Total Bilirubin 0.20 L (0.30-1.20) mg/dL Alkaline Phosphatase 443 H (41-126) U/L Total Protein 5.2 L (6.2-8.2) g/dL Albumin 2.9 L (3.8-4.9) g/dL Albumin/Globulin Ratio 1.26 L (1.60-3.17) g/dL 03/11/22 Range/Units 16:13 RBC (4.10-5.20) X 10*6/uL Hgb (12.0-15.0) g/dL Hct (37.2-46.3) % MCHC (32.0-37.0) g/dL Metamyelocytes % (0-0) % Myelocytes % (0-0) % Lymphocytes # (Manual) (0.90-5.00) X 10*3/uL Monocytes # (Manual) (0.20-1.00) X 10*3/uL Basophils # (Manual) (0.00-0.10) X 10*3/uL PT (9.0-12.0) sec INR (<1.2) Glucose (70-110) mg/dL POC Glucose (mg/dL) 132 H (75-99) mg/dL Calcium (8.7-10.3) mg/dL Total Bilirubin (0.30-1.20) mg/dL Alkaline Phosphatase (41-126) U/L Total Protein (6.2-8.2) g/dL Albumin (3.8-4.9) g/dL Albumin/Globulin Ratio (1.60-3.17) g/dL Microbiology - Last 24 Hours (Table) 03/05/22 14:06 Blood Culture - Final Blood No Growth after 144 hours 03/09/22 08:30 Gram Stain - Preliminary Aspirate Body Fluid Culture - Preliminary 03/06/22 06:08 Blood Culture - Preliminary Blood No Growth after 120 hours 03/07/22 04:40 Blood Culture - Preliminary Blood No Growth after 96 hours Assessment and Plan (1) Pyrexia Current Visit: Yes Status: Acute Code(s): R50.9 - FEVER, UNSPECIFIED SNOMED Code(s): 223212508 Plan: 1patient presented to hospital with mental status changes fever and this patient did have a nausea and vomiting now with evidence of gram-positive bacteremia source likely right foot infection was apparently the patient did have a cut few days ago the area slightly fluctuant concerning for possible abscess and likely the source of her infection. 2blood cultures are still positive and blood cultures will be repeated to document clearance of bacteremia, echocardiogram did show functioning prosthetic aortic valve and no evidence of vegetation, BLANCA was negative for any vegetation 3-CT right foot was negative for any abscess, aspirated from the left knee is suspicious for septic arthritis, ortho on the case, the patient left knee aspirate cultures are so far negative 4patient to continue with cefazolin 2 g every 8 hours , plan is for at least 4 weeks of IV cefazolin on discharge Time with Patient: Less than 30
[2022-03-11] MEDS ORDERED: WARFARIN 10 MG TAB PO ONE (18:00)
[2022-03-11] MEDS: IBUPROFEN 400 MG TAB PO PRN (19:56)
[2022-03-11] MEDS: clonazePAM 1 MG TAB PO PRN (19:56)
[2022-03-11] MEDS: OLANZapine 10 MG TAB PO SCH (19:57)
[2022-03-11 20:13] LABS: Glucose,Whole Blood 133 mg/dL (75-99)
--- NOTE | 2022-03-12 03:02 | P.PN ---
Subjective Progress Note Date: 03/11/22 Linda Isaac, is a 61-year-old female who presented to [facility] emergency room with a chief complaint of fever or chills and mental status changes. She was evaluated in the emergency room vital examination on presentation revealed a temperature of 105.7 pulse 116 respiration 18 and blood pressure 128/78 pulse ox 94% on room air Laboratory data revealed a white blood count of 5.4 hemoglobin 12.1 platelet count 204 sodium 127 potassium 4.3 chloride 95 CO2 24 BUN 17 creatinine 1.12 AST elevated at 72 ALT 36 influenza A and B titers and COVID-19 PCR were negative, urine analysis was not done, INR was 2.2 Testing in the emergency room revealed chest x-ray done in the emergency room revealed scattered opacities which may represent atypical pneumonia, computed tomography scan of the brain done in the emergency room without contrast revealed no acute intracranial process, computed tomography scan of the abdomen and pelvis done in the emergency room revealed a right thigh enlarged lymph node, bladder wall thickening, and hepatic steatosis. Patient was admitted to medical floor for further evaluation and treatment. She was started on IV antibiotic Rocephin and Zithromax in the emergency room for presumed pneumonia, shortly after admission patient had positive blood culture for gram-negative bacilli and IV antibiotics were changed to Zosyn and Levaquin, infectious disease consultation was requested. Past medical history is significant for history of aortic valve replacement with mechanical valve patient is maintained on Coumadin, history of morbid obesity, history of obstructive sleep apnea, history of hypothyroidism, history of bipolar disorder with schizoaffective disorder, history of hypertension, history of hyperlipidemia, and history of diabetes mellitus. On review of systems at this time patient is alert and oriented 3 in no apparent distress she is complaining of episodes on and off of shaking chills, otherwise she denies any complaints at this time there is no headache or dizziness no chest pain no shortness of breath no cough no nausea or vomiting no abdominal pain no diarrhea and no urinary symptoms. 03/11/2022 The patient remains to be afebrile, the patient is breathing comfortably on room air, the patient denies chest pain shortness of breath or cough, the patient denies nausea no vomiting no abdominal pain no diarrhea , the patient pain to the left knee is currently controlled Objective - Vital Signs Vital signs: Vital Signs Temp 98.5 F 03/11/22 08:00 Pulse 81 03/11/22 08:00 Resp 18 03/11/22 08:00 BP 177/92 03/11/22 08:00 Pulse Ox 95 03/11/22 08:00 Intake & Output 03/10/22 03/11/22 03/11/22 18:59 06:59 18:59 Intake Total 2170 Balance 2170 Intake: Intake, IV Titration 900 Amount Sodium Chloride 0.9% 1, 800 000 ml @ 100 mls/hr IV . Q10H TIFFANIE Rx#:[id number] ceFAZolin 2 gm In Sodium 100 Chloride 0.9% 50 ml @ 100 mls/hr IVPB Q8HR TIFFANIE Rx# :[id number] Oral 1270 Other: Voiding Method Toilet # Voids 3 4 - Exam GENERAL DESCRIPTION: Middle-aged female lying in bed in no distress RESPIRATORY SYSTEM: Unlabored breathing , decreased breath sounds at bases HEART: S1 S2 regular rate and rhythm , ABDOMEN: Soft , no tenderness EXTREMITIES: No edema feet - Labs CBC & Chem 7: 03/11/22 04:45 03/11/22 04:45 Labs: Abnormal Lab Results - Last 24 Hours (Table) 03/10/22 03/10/22 03/10/22 Range/Units 05:38 05:38 11:40 RBC (4.10-5.20) X 10*6/uL Hgb (12.0-15.0) g/dL Hct (37.2-46.3) % MCHC (32.0-37.0) g/dL Metamyelocytes % 1 H (0-0) % Myelocytes % 1 H (0-0) % Lymphocytes # (Manual) 0.63 L (0.90-5.00) X 10*3/uL Monocytes # (Manual) 0.16 L (0.20-1.00) X 10*3/uL Eosinophils # (Manual) 0 L (0.04-0.35) X 10*3/uL Basophils # (Manual) (0.00-0.10) X 10*3/uL PT 17.9 H (9.9-11.9) sec INR 1.62 H (0.90-1.11) POC Glucose (mg/dL) 150 H (75-99) mg/dL 03/10/22 03/10/2222 Range/Units 16:34 16:53 20:29 RBC (4.10-5.20) X 10*6/uL Hgb (12.0-15.0) g/dL Hct (37.2-46.3) % MCHC (32.0-37.0) g/dL Metamyelocytes % (0-0) % Myelocytes % (0-0) % Lymphocytes # (Manual) (0.90-5.00) X 10*3/uL Monocytes # (Manual) (0.20-1.00) X 10*3/uL Eosinophils # (Manual) (0.04-0.35) X 10*3/uL Basophils # (Manual) (0.00-0.10) X 10*3/uL PT (9.9-11.9) sec INR (0.90-1.11) POC Glucose (mg/dL) 63 L 102 H 133 H (75-99) mg/dL 03/10/22 03/11/22 03/11/22 Range/Units 23:33 00:31 04:45 RBC 2.98 L (4.10-5.20) X 10*6/uL Hgb 8.3 L (12.0-15.0) g/dL Hct 26.2 L (37.2-46.3) % MCHC 31.7 L (32.0-37.0) g/dL Metamyelocytes % 1 H (0-0) % Myelocytes % 3 H (0-0) % Lymphocytes # (Manual) 0.76 L (0.90-5.00) X 10*3/uL Monocytes # (Manual) 0.15 L (0.20-1.00) X 10*3/uL Eosinophils # (Manual) (0.04-0.35) X 10*3/uL Basophils # (Manual) 0.15 H (0.00-0.10) X 10*3/uL PT (9.9-11.9) sec INR (0.90-1.11) POC Glucose (mg/dL) 101 H 127 H (75-99) mg/dL 03/11/22 Range/Units 04:45 RBC (4.10-5.20) X 10*6/uL Hgb (12.0-15.0) g/dL Hct (37.2-46.3) % MCHC (32.0-37.0) g/dL Metamyelocytes % (0-0) % Myelocytes % (0-0) % Lymphocytes # (Manual) (0.90-5.00) X 10*3/uL Monocytes # (Manual) (0.20-1.00) X 10*3/uL Eosinophils # (Manual) (0.04-0.35) X 10*3/uL Basophils # (Manual) (0.00-0.10) X 10*3/uL PT 15.5 H (9.9-11.9) sec INR 1.5 H (0.90-1.11) POC Glucose (mg/dL) (75-99) mg/dL Microbiology - Last 24 Hours (Table) 03/06/22 06:08 Blood Culture - Preliminary Blood No Growth after 120 hours 03/07/22 04:40 Blood Culture - Preliminary Blood No Growth after 96 hours 03/05/22 14:06 Blood Culture - Preliminary Blood No Growth after 120 hours 03/09/22 08:30 Gram Stain - Preliminary Aspirate Body Fluid Culture - Preliminary Assessment and Plan Assessment: Plan: 1patient presented to hospital with mental status changes fever and this patient did have a nausea and vomiting now with evidence of gram-positive bacteremia source likely right foot infection was apparently the patient did have a cut few days ago the area slightly fluctuant concerning for possible abscess and likely the source of her infection. 2blood cultures are still positive and blood cultures will be repeated to document clearance of bacteremia, echocardiogram did show functioning prosthetic aortic valve and no evidence of vegetation, BLANCA was negative for any vegetation 3-CT right foot was negative for any abscess, aspirated from the left knee is suspicious for septic arthritis, ortho on the case, the patient left knee aspirate cultures are so far negative 4patient to continue with cefazolin 2 g every 8 hours , plan is for at least 4 weeks of IV cefazolin on discharge Time with Patient: Less than 30
[2022-03-12] MEDS: LEVOTHYROXINE 125 MCG TAB PO SCH (05:14)
[2022-03-12 05:35] LABS: INR 1.5 (<1.2); Prothrombin Time 15.6 sec (9.0-12.0)
[2022-03-12 07:07] LABS: Glucose,Whole Blood 72 mg/dL (75-99)
[2022-03-12] MEDS: INSULIN ASPART (NovoLOG) 100 UNIT/ML VIAL SQ SCH ×2 (08:09→12:46)
[2022-03-12] MEDS: lisinopriL 5 MG TAB PO SCH (08:17)
[2022-03-12] MEDS: ENOXAPARIN 100 MG/ML SYRINGE SQ SCH (08:17)
[2022-03-12] MEDS: INSULIN DETEMIR (LEVEMIR) 100 UNIT/ML SYR SQ SCH (08:17)
[2022-03-12] MEDS: VENLAFAXINE HCL ER 150 MG CAP PO SCH (08:18)
[2022-03-12] MEDS: traMADol 50 MG TAB PO SCH (08:18)
[2022-03-12] MEDS: FLUTICASONE 50MCG/SPRAY NASAL 16GM EA NOSTRIL SCH (08:19)
[2022-03-12] MEDS: METOPROLOL SUCCINATE (ER) 100 MG TAB.ER.24H PO SCH (08:21)
[2022-03-12 08:33] VITALS: BP 163/98; PULSE 68; RESP 16; TEMP 98.2
[2022-03-12] MEDS: PANTOPRAZOLE 40 MG/10 ML VIAL IVP SCH (08:37)
[2022-03-12] MEDS: ACETAMINOPHEN TAB 325 MG TAB PO PRN (11:16)
[2022-03-12] MEDS: SODIUM CHLORIDE 0.9% 1,000 ML IV SCH (11:20)
[2022-03-12 11:55] LABS: Glucose,Whole Blood 102 mg/dL (75-99)
[2022-03-12] MEDS ORDERED: DAPTOmycin 500 MG in SODIUM CHLORIDE 0.9% 50 ML IVPB SCH (16:00)
[2022-03-12] MEDS ORDERED: WARFARIN 3 MG TAB PO ONE (18:00)
--- NOTE | 2022-03-14 10:59 | P.DS ---
Providers Date of admission: 03/02/22 20:06 Expected date of discharge: 03/12/22 Attending physician: Felisa Romo Consults: 03/02/22 20:07 Consult Physician Urgent Consulting Provider: Luda Fernandez Consult Reason/Comments: sepsis, possible pna source Do you want consulting provider notified?: Yes 03/07/22 11:44 Consult Physician Routine Consulting Provider: Cabrera Draper Consult Reason/Comments: elevated BNP Do you want consulting provider notified?: Yes 03/08/22 13:25 Consult Physician Routine Consulting Provider: Huy Rodriguez Consult Reason/Comments: left knee pain, swelling, sepsis Do you want consulting provider notified?: Yes Primary care physician: Felisa Romo [facility] Course: Final diagnosis -Sepsis, with positive blood culture -Possible underlying pneumonia -Hyponatremia on presentation -Mental status changes on presentation likely related to sepsis and elevated temperature, improving -Underlying history of insulin-dependent diabetes mellitus -Underlying history of aortic valve replacement with mechanical valve patient is maintained on Coumadin -Underlying history of hypertension -Underlying history of hyperlipidemia -Underlying history of hypothyroidism -Underlying history of bipolar disorder, and schizoaffective disorder -Elevated liver enzymes. -Elevated BNP. 2-D echo completed showing EF of 50-55% -Left knee swelling. Status post drainage of left knee edema per orthopedic services Discharge disposition Patient is being discharged in a stable condition with guarded prognosis to home. Patient will follow-up with Dr. Romo in the outpatient setting upon discharge. Patient is to continue with IV antibiotics in the form of Kefzol and close follow up with Dr. Jim CABRERA and orthopedics as scheduled. Patient will bridge with lovenox sub q injections BID and coumadin to gain therapeutic INR of 2-3. Scripts provided for labs in the am. Total time taken is greater than 35 minutes. Hospital course This is a 61-year-old female who was recently admitted with fever altered mental status and found to have bacteremia. Patient was being closely monitored by multiple medical consultations. BLANCA was done for concerns of vegetation and was negative. Patient received a midline and will be going home on IV antibiotics with close outpatient follow up with orthopedics and infectious disease. Patient is requesting to go home. Currently no reports of chest pain, shortness of breath, or palpitations. Patient is afebrile. No reports of nausea or vomiting and patient is tolerating diet. Patient will be discharged home today. On exam vital signs are stable. Cardio S1, S2 are muffled. Respiratory system shows diminished breath sounds at the bases with no wheezing or rhonchi noted. Abdomen is soft and nontender. Nervous system shows no focal deficits. Please refer to medication reconciliation sheet for a list of medications. The impression and plan of care has been dictated by Zoe Archer, Nurse Practitioner as directed. Dr. Isaias MD I have performed a history and examination and MDM of this patient, discussed the same with the dictator, and agree with the dictator's assessment and plan as written ,documented as a scribe. Based on total visit time, I have performed more than 50% of the visit. Patient Condition at Discharge: Stable Plan - Discharge Summary Discharge Rx Participant: Yes New Discharge Prescriptions: New Enoxaparin [Lovenox] 100 mg SQ Q12HR 3 Days #6 each Ibuprofen [Motrin] 400 mg PO Q6HR PRN #30 tab PRN Reason: Mild Pain Or Fever > 100.5 Albuterol Inhaler [Ventolin Hfa Inhaler] 1 puff INHALATION RT-QID PRN 30 Days #8 gm PRN Reason: Shortness Of Breath ceFAZolin [Kefzol] 2 gm IVP Q8HR #84 each Fluticasone Nasal Maize [Flonase Nasal Maize] 2 spray EA NOSTRIL DAILY 30 Days #1 gm Acetaminophen Tab [Tylenol] 650 mg PO Q6HR PRN tab PRN Reason: Mild Pain Or Fever > 100.5 Warfarin [Coumadin] 10 mg PO DAILY 30 Days #30 tab Continue OLANZapine [ZyPREXA] 20 mg PO HS Metoprolol Succinate (ER) [Toprol XL] 100 mg PO DAILY lisinopriL [Zestril] 5 mg PO DAILY clonazePAM 1 mg PO BID PRN PRN Reason: Anxiety Ergocalciferol [Vitamin D2 (1250 Mcg = 69423 Iu)] 1,250 mcg PO MO Venlafaxine HCl [Effexor XR] 300 mg PO DAILY Atorvastatin [Lipitor] 80 mg PO DAILY Levothyroxine Sodium [Synthroid] 125 mcg PO DAILY Insulin Aspart [NovoLOG Flexpen] 25 units SQ AC-TID Famotidine [Pepcid] 20 mg PO DAILY Insulin Glargine,Hum.rec.anlog [Basaglar Kwikpen U-100] 35 unit SQ DAILY Empagliflozin [Jardiance] 10 mg PO DAILY traMADol HCL 50 mg PO TID Insulin Glargine,Hum.rec.anlog [Basaglar Kwikpen U-100] 45 unit SQ HS Discharge Medication List Ergocalciferol [Vitamin D2 (1250 Mcg = 05627 Iu)] 1,250 mcg PO MO 02/02/21 [Hi story] Metoprolol Succinate (ER) [Toprol XL] 100 mg PO DAILY 02/02/21 [History] OLANZapine [ZyPREXA] 20 mg PO HS 02/02/21 [History] Venlafaxine HCl [Effexor XR] 300 mg PO DAILY 02/02/21 [History] clonazePAM 1 mg PO BID PRN 02/02/21 [History] lisinopriL [Zestril] 5 mg PO DAILY 02/02/21 [History] Atorvastatin [Lipitor] 80 mg PO DAILY 02/07/21 [History] Empagliflozin [Jardiance] 10 mg PO DAILY 09/19/21 [History] traMADol HCL 50 mg PO TID 01/17/22 [History] Famotidine [Pepcid] 20 mg PO DAILY 03/02/22 [History] Insulin Aspart [NovoLOG Flexpen] 25 units SQ AC-TID 03/02/22 [History] Insulin Glargine,Hum.rec.anlog [Basaglar Kwikpen U-100] 35 unit SQ DAILY 03/02/22 [History] Insulin Glargine,Hum.rec.anlog [Basaglar Kwikpen U-100] 45 unit SQ HS 03/02/22 [History] Levothyroxine Sodium [Synthroid] 125 mcg PO DAILY 03/02/22 [History] ceFAZolin [Kefzol] 2 gm IVP Q8HR #84 each 03/11/22 [Rx] Acetaminophen Tab [Tylenol] 650 mg PO Q6HR PRN tab 03/12/22 [Rx] Albuterol Inhaler [Ventolin Hfa Inhaler] 1 puff INHALATION RT-QID PRN 30 Days #8 gm 03/12/22 [Rx] Enoxaparin [Lovenox] 100 mg SQ Q12HR 3 Days #6 each 03/12/22 [Rx] Fluticasone Nasal Maize [Flonase Nasal Maize] 2 spray EA NOSTRIL DAILY 30 Days #1 gm 03/12/22 [Rx] Ibuprofen [Motrin] 400 mg PO Q6HR PRN #30 tab 03/12/22 [Rx] Warfarin [Coumadin] 10 mg PO DAILY 30 Days #30 tab 03/12/22 [Rx] Follow up Appointment(s)/Referral(s): [facility],Infusion [NON-STAFF] - (someone from [facility] will contact you to notify you of your appointment time which will begin 03/13/2022) Felisa Romo MD [Primary Care Provider] - 1-2 days Luda Fernandez MD [STAFF PHYSICIAN] - 03/20/22 1:30 pm Rakesh Gonzalez MD [Medical Doctor] - 03/19/22 9:30 am Ambulatory/Diagnostic Orders: Basic Metabolic Panel [LAB.AMB] Location: None Selected C Reactive Protein [LAB.AMB] Location: None Selected Complete Blood Count w/diff [LAB.AMB] Location: None Selected Complete Blood Count w/diff [LAB.AMB] Time Frame: 1 Day, Location: None Selected Erythrocyte Sedimentation Rate [LAB.AMB] Location: None Selected Patient Instructions/Handouts: Bacteremia (DC) Activity/Diet/Wound Care/Special Instructions: Activity Limited until follow-up Follow-up with primary care provider on discharge Continue taking medications as prescribed Recommend repeat labs of CBC and PT/INR in one day Continue Lovenox subcutaneous injections twice daily and also Coumadin until INR is between 2-3 Recommend follow-up with infectious disease in one week along with orthopedics Continue with IV antibiotics per infectious disease Discharge Disposition: HOME SELF-CARE
== END 2022-03-12 16:10 | disposition home or self-care (01) | DRG 871 ==
LOC: EC 16:47 → 4SSUR 20:06
PROVIDERS: ADMIT Internal Medicine; ATTEND Internal Medicine
PROC: 05HF33Z Insertion of Infusion Device into Left Cephalic Vein, Percutaneous Approach (ICD-10-PCS; 2022-03-07)
PROC: 0S9D3ZX Drainage of Left Knee Joint, Percutaneous Approach, Diagnostic (ICD-10-PCS; 2022-03-09)
PROC: 02HV33Z Insertion of Infusion Device into Superior Vena Cava, Percutaneous Approach (ICD-10-PCS; 2022-03-09)
PROC: B24BZZ4 Ultrasonography of Heart with Aorta, Transesophageal (ICD-10-PCS; principal; 2022-03-09 14:20)
DX: A41.01 Sepsis due to Methicillin susceptible Staphylococcus aureus (principal); J18.9 Pneumonia, unspecified organism; G93.41 Metabolic encephalopathy; E87.1 Hypo-osmolality and hyponatremia; I50.30 Unspecified diastolic (congestive) heart failure; J44.0 Chronic obstructive pulmonary disease with (acute) lower respiratory infection; L03.115 Cellulitis of right lower limb; E03.9 Hypothyroidism, unspecified; E11.40 Type 2 diabetes mellitus with diabetic neuropathy, unspecified; Z79.4 Long term (current) use of insulin; E78.5 Hyperlipidemia, unspecified; F25.9 Schizoaffective disorder, unspecified; F41.9 Anxiety disorder, unspecified; I11.0 Hypertensive heart disease with heart failure; S91.301A Unspecified open wound, right foot, initial encounter; E66.01 Morbid (severe) obesity due to excess calories; I35.2 Nonrheumatic aortic (valve) stenosis with insufficiency; Z68.37 Body mass index [BMI] 37.0-37.9, adult; N30.90 Cystitis, unspecified without hematuria; R65.20 Severe sepsis without septic shock; R52 Pain, unspecified; W19.XXXA Unspecified fall, initial encounter; N83.209 Unspecified ovarian cyst, unspecified side; Z79.01 Long term (current) use of anticoagulants; Z79.84 Long term (current) use of oral hypoglycemic drugs; Z79.890 Hormone replacement therapy; Z79.899 Other long term (current) drug therapy; Z95.2 Presence of prosthetic heart valve; Z96.652 Presence of left artificial knee joint; Z20.822 Contact with and (suspected) exposure to COVID-19; K21.9 Gastro-esophageal reflux disease without esophagitis; G47.33 Obstructive sleep apnea (adult) (pediatric); M25.462 Effusion, left knee; Z81.1 Family history of alcohol abuse and dependence; Z81.8 Family history of other mental and behavioral disorders; Z98.890 Other specified postprocedural states; Z87.01 Personal history of pneumonia (recurrent); Z88.5 Allergy status to narcotic agent
CPT/HCPCS: 36410; 36415; 36573; 70450; 71046; 74177; 76705; 76937; 80048; 80053; 81001; 82043; 82570; 82607; 82746; 83540; 83550; 83605; 83880; 85025; 85610; 85652; 85730; 86140; 87040; 87070; 87077; 87186; 87205; 87636; 89050; 89060; 93005; 93306; 93312; 93320; 93325; 94640; 94760; 96365; 96375; 99285

== ENCOUNTER → 2022-03-15 | Outpatient (CLI) | payer MEDICARE, OTHER ==
[2022-03-15 14:16] LABS: INR 1.6 (<1.2); Prothrombin Time 16.7 sec (9.0-12.0)
[2022-03-15 14:18] LABS: Appearance,BF Cloudy; Color,BF Yellow; Nucleated Cells, Body Fluid 5300 /uL; RBC, Body Fluid 5100 /uL
[2022-03-15 14:21] LABS: Mononuclear WBC,Body Fluid 12 %; Polynuclear WBC,Body Fluid 88 %; Total Cells Counted,Body Fluid 100
[2022-03-15 18:29] LABS: C Reactive Protein 5.4 mg/dL (0.00-0.80)
[2022-03-15 19:11] LABS: African American GFR (CKD) 95.7 (60.0-200.0); Anion Gap 9.8 mmol/L (10.00-18.00); BUN/Creat Ratio 21.4 Ratio (12.00-20.00); Blood Urea Nitrogen 16.8 mg/dL (9.0-27.0); Calcium 9.1 mg/dL (8.7-10.3); Carbon Dioxide 23.7 mmol/L (20.0-27.5); Non-African American GFR(CKD) 82.6 (60.0-200.0); Potassium 4.9 mmol/L (3.5-5.5)
[2022-03-15 20:12] LABS: Synovial Fld Crystals Seen (None Seen)
== END | disposition home or self-care (01) ==
LOC: LABWHC1 12:45
PROVIDERS: ATTEND Orthopaedic Surgery
DX: M25.562 Pain in left knee (principal); T84.84XD Pain due to internal orthopedic prosthetic devices, implants and grafts, subsequent encounter; Y79.2 Prosthetic and other implants, materials and accessory orthopedic devices associated with adverse incidents
CPT/HCPCS: 36415; 80048; 85379; 85610; 85652; 86140; 87070; 87075; 87205; 89050; 89060

== ENCOUNTER → 2022-04-20 | Outpatient (CLI) | payer MEDICARE, OTHER ==
[2022-04-20 13:28] LABS: INR 4.2 (<1.2); Partial Thromboplastin Time 51.1 sec (22.0-30.0); Prothrombin Time 41.9 sec (9.0-12.0)
[2022-04-20 13:40] LABS: Appearance,Urine Clear (Clear); Bacteria,Urine Rare /hpf; Bilirubin,Urine Negative (Negative); Blood,Urine Negative (Negative); Color,Urine Light Yellow; Glucose,Urine (UA) 4+ (Negative); Ketones,Urine Negative (Negative); Leukocyte Esterase,Urine Small (Negative); Mucus,Urine Rare /hpf; Nitrite,Urine Negative (Negative); PH, Urine 6.5 (5.0-8.0); Protein,Urine Trace (Negative); RBC,Urine 1 /hpf (0-5); Specific Gravity,Urine 1.011 (1.001-1.035); Squamous Epithelial Cell,Urine 1 /hpf (0-4); Urobilinogen,Urine <2.0 mg/dL (<2.0); WBC,Urine 8 /hpf (0-5)
[2022-04-20 18:37] LABS: HCT 32.8 % (37.2-46.3); HGB 10.8 g/dL (12.0-15.0); MCH 27.6 pg (27.0-32.0); MCHC 32.9 g/dL (32.0-37.0); MCV 83.7 fL (80.0-97.0); Mean Platelet Volume 9.1 fL (9.5-12.2); NRBC Per 100 WBC 0 /100 WBCS (0.0-0.0); Platelet Count 309 X 10*3/uL (140-440); RBC 3.92 X 10*6/uL (4.10-5.20); RDW 14.4 % (11.5-14.5); WBC 6.12 X 10*3/uL (4.50-10.00)
[2022-04-20 19:15] LABS: ALT 16 U/L (8-44); AST 17 U/L (13-35); African American GFR (CKD) 63.6 (60.0-200.0); Albumin 4.4 g/dL (3.8-4.9); Albumin/Globulin Ratio 1.52 (1.60-3.17); Alkaline Phosphatase 72 U/L (41-126); BUN/Creat Ratio 20.27 Ratio (12.00-20.00); Blood Urea Nitrogen 22.3 mg/dL (9.0-27.0); Calcium 9.4 mg/dL (8.7-10.3); Carbon Dioxide 21.3 mmol/L (20.0-27.5); Chloride 95 mmol/L (96-109); Globulin 2.9 g/dL (1.6-3.3); Glucose 225 mg/dL (70-110); Non-African American GFR(CKD) 54.9 (60.0-200.0); Potassium 4.7 mmol/L (3.5-5.5); Sodium 131 mmol/L (135-145); Total Bilirubin <0.15 mg/dL (0.30-1.20); Total Protein 7.3 g/dL (6.2-8.2)
== END | disposition home or self-care (01) ==
LOC: LABPAT 12:36
PROVIDERS: ATTEND Orthopaedic Surgery
DX: M25.462 Effusion, left knee (principal); T84.84XD Pain due to internal orthopedic prosthetic devices, implants and grafts, subsequent encounter; Y82.9 Unspecified medical devices associated with adverse incidents
CPT/HCPCS: 80053; 81001; 85027; 85610; 85730

== ENCOUNTER → 2022-04-24 | Outpatient (CLI) | payer MEDICARE, OTHER ==
[2022-04-24 16:34] LABS: Partial Thromboplastin Time 26.7 sec (22.0-30.0); Prothrombin Time 11.2 sec (9.0-12.0)
[2022-04-24 22:39] LABS: Basophils # (A) 0.08 X 10*3/uL (0.00-0.10); Basophils % (A) 1.5 %; Eosinophils % (A) 1.9 %; HCT 35.8 % (37.2-46.3); HGB 11.4 g/dL (12.0-15.0); Immature Grans, Automated 0.8 %; Lymphocytes # (A) 0.92 X 10*3/uL (0.90-5.00); Lymphocytes % (A) 17.6 %; MCH 27.6 pg (27.0-32.0); MCHC 31.8 g/dL (32.0-37.0); MCV 86.7 fL (80.0-97.0); Monocytes # (A) 0.43 X 10*3/uL (0.20-1.00); Monocytes % (A) 8.2 %; NRBC Per 100 WBC 0 /100 WBCS (0.0-0.0); Neutrophils # (A) 3.66 X 10*3/uL (1.80-7.70); Platelet Count 331 X 10*3/uL (140-440); RBC 4.13 X 10*6/uL (4.10-5.20); RDW 14.7 % (11.5-14.5); WBC 5.23 X 10*3/uL (4.50-10.00)
== END | disposition home or self-care (01) ==
LOC: LABWHC1 14:06
PROVIDERS: ATTEND Physician Assistant
DX: T84.84XD Pain due to internal orthopedic prosthetic devices, implants and grafts, subsequent encounter (principal); M25.462 Effusion, left knee; Y79.2 Prosthetic and other implants, materials and accessory orthopedic devices associated with adverse incidents
CPT/HCPCS: 36415; 85025; 85610; 85730

== ENCOUNTER → 2022-05-03 | Outpatient (CLI) | payer MEDICARE, OTHER | END | disposition home or self-care (01) | LOC: LABPAT 10:47 | PROVIDERS: ATTEND Physician Assistant | DX: Z01.812 Encounter for preprocedural laboratory examination (principal) | CPT/HCPCS: 87070 ==

== ENCOUNTER 2022-05-08 11:40 | Inpatient (IN) | payer MEDICARE, OTHER ==
[2022-05-07 11:23] VITALS: BMI 36.6
[~2022-05-08 11:40] MED LIST changes: +ACETAMINOPHEN TAB 500 MG TAB PO PRN; +DEXAMETHASONE SOD PHOSPHATE 10 MG/ML 1 ML VIAL IV PRN; +DEXAMETHASONE SOD PHOSPHATE 4 MG/ML 1 ML VIAL IV ONE; +DOCUSATE 100 MG CAP PO PRN; +FAMOTIDINE 20 MG/2 ML VIAL IVP PRN; +HYDROmorphone 0.5 MG/0.5 ML SYRINGE IVP PRN; +KETOROLAC 15 MG/ML 1 ML VIAL IVP PRN; -LACTATED RINGERS 1,000 ML IV SCH; +MIDAZOLAM 2 MG/2 ML VIAL IV PRN; +ONDANSETRON 4 MG/2 ML VIAL IVP ONE; +ONDANSETRON 4 MG/2 ML VIAL IVP PRN; +TRANEXAMIC ACID IN NACL,ISO-OS 1,000 MG in SALINE 1 100ML.BAG IVPB PRN; +oxyCODONE ER 10 MG TAB.ER.12H PO PRN
[2022-05-08 14:30] LABS: Glucose,Whole Blood 141 mg/dL (75-99)
[2022-05-08] MEDS: LACTATED RINGERS 1,000 ML IV SCH (14:40)
[2022-05-08] MEDS ORDERED: TRANEXAMIC ACID IN NACL,ISO-OS 1,000 MG in SALINE 1 100ML.BAG IVPB ONE (15:36)
[2022-05-08] MEDS ORDERED: HYDROmorphone (PF) 1 MG/ML ONE (15:42)
[2022-05-08] MEDS ORDERED: PROPOFOL 10 MG/ML 20 ML VIAL IV ONE (15:42)
[2022-05-08] MEDS ORDERED: GLYCOPYRROLATE 0.2 MG/ML 2 ML VIAL ONE (15:42)
[2022-05-08] MEDS ORDERED: PHENYLEPHRINE-0.9% NACL SYG 1,000 MCG/10 ML SYRINGE ONE (15:42)
[2022-05-08] MEDS ORDERED: MIDAZOLAM 2 MG/2 ML VIAL ONE (15:42)
[2022-05-08] MEDS ORDERED: NEOSTIGMINE 1 MG/ML 10 ML VIAL ONE (15:42)
[2022-05-08] MEDS ORDERED: TRANEXAMIC ACID IN NACL,ISO-OS 1,000 MG/100 ML BAG ONE (15:42)
[2022-05-08] MEDS ORDERED: fentaNYL (PF) 50 MCG/ML 2 ML AMP ONE (15:42)
[2022-05-08] MEDS ORDERED: SUCCINYLCHOLINE CHLORIDE 100 MG/5 ML SYR IV ONE (15:42)
[2022-05-08] MEDS ORDERED: ROCURONIUM 10 MG/ML (5 ML VIAL) IV ONE (15:42)
[2022-05-08] MEDS ORDERED: ESMOLOL 100 MG/10 ML VIAL ONE (15:42)
[2022-05-08] MEDS ORDERED: LIDOCAINE 2% INJ 20 MG/ML (2 ML VIAL) ONE (15:42)
[2022-05-08] MEDS ORDERED: METOPROLOL TARTRATE 5 MG/5 ML VIAL IVP ONE (15:42)
[2022-05-08] MEDS ORDERED: LACTATED RINGERS 1,000 ML IV ONE (17:02)
[2022-05-08] MEDS ORDERED: VANCOMYCIN 1,000 MG VIAL MISCELLANE ONE (17:13)
[2022-05-08] MEDS ORDERED: TOBRAMYCIN SULFATE 1.2 GM VIAL MISCELLANE ONE (17:14)
[2022-05-08] MEDS ORDERED: HYDROmorphone 0.5 MG/0.5 ML SYRINGE IVP PRN (19:31)
[2022-05-08] MEDS ORDERED: NALOXONE 0.4 MG/ML 1 ML VIAL IV PRN (19:31)
[2022-05-08] MEDS ORDERED: HYDROcodone/APAP 5-325MG 1 EACH TAB PO PRN (19:31)
[2022-05-08] MEDS ORDERED: ONDANSETRON 4 MG/2 ML VIAL IVP PRN (19:31)
--- NOTE | 2022-05-08 19:59 | P.OP ---
Date of Procedure: 05/08/22 Preoperative Diagnosis: 1. Chronic periprosthetic joint infection, left knee 2. Coronary artery disease 3. Aortic valve replacement 4. History of recent bacteremia requiring a PICC line Procedure(s) Performed: 1. Complex removal of prosthesis (includes placement of antibiotic cement/spacer), left knee 2. Fabrication and insertion of nonbiodegradable drug delivery implant, articulating spacer, left knee 3. Irrigation and excisional debridement of subcutaneous tissue, muscle, and bone and thigh, knee, and tibia with radical synovectomy and 12 L saline pulsatile mechanical lavage 4. Extensile exposure with extended surgical time, 18 centimeters 5. Application of negative pressure dressing, left and 50 cm squares, left knee Modifier 59 for separate procedure Modifier 22 for increased procedural complexity Justification: This operation required significantly more time, work, and procedural complexity than a standard left primary revision total knee joint arthroplasty. Specifically the prior traumatic changes and/or surgical procedure left a significantly altered surgical field with resultant scar tissue, adhesions, and altered anatomy that required a longer and more difficult and complex surgical dissection. This patient required: Extensile exposure req uiring meticulous and extensive debridement due to prior failed surgery contractures, technically demanding removal of prior hardware. All the above resulted in the physically and mentally challenging operative procedure that my professional opinion necessitates a 30% increase above standard schedule. Implants: 1. [place] triathlon size #3 PS femur 2. [place] triathlon size #3, 16 mm TS polyliner 2 bags of Deisy Simplex cement were mixed to create towels for the femur and tibia. 2 bags of [place] Simplex cement were used to cement the polyliner and femoral component. 4 g of vancomycin and 3 g of tobramycin were mixed per bag of cement. Anesthesia: GETA Surgeon: Rakesh Gonzalez Time Clock Mechanic #1: Allegra Arechiga Estimated Blood Loss (ml): 300 IV fluids (ml): 1,200 Pathology: other (Multiple deep cultures were taken) Condition: stable Disposition: PACU Indications for Procedure: the patient is a very pleasant 62-year-old female with multiple medical problems who underwent a left total knee replacement by Dr. Calles less than 2 years ago. She initially presented to my office in November 2021 with increased pain in her left knee. she had loosening of both the femoral and tibial component on x-ray. she failed to follow-uup for several months. during that time she was admitted to the hospital with bacteremia and was treated with long- term antibiotics via a PICC line. she presented to my office following discharge from the hospital with a large effusion. her knee was aspirated Shannon had over 5000 white blood cells. her ESR and CRP were also elevated. given the whole clinical picture ( history of bacteremia requiring a PICC line and meeting MSIS chronic periprosthetic joint infection) I recommended a 2-stage debridement for presumed chronic periprosthetic joint infection. we discussed the potential risks and complications of surgery length including but not limited to risks from anesthesia , delayed wound healing , continued periprosthetic joint infection, fracture, damage to local blood vessels or nerves, extensor mechanism disruption, need for further surgery, and possibly loss of life or limb. The patient voiced understanding that this is a stage procedure and she will need reimplantation if her infection is eradicated. She also understands the potential for continued or worsened infection. Operative Findings: Both the femoral and tibial components were grossly loose and easily removed. There was a large cloudy effusion in the knee. Description of Procedure: The patient was identified in preoperative holding and the correct left leg was marked with my initials. I discussed the procedure at length with her. She is given a block by anesthesia. the patient was then brought back to the operating room by anesthesia. She was given preoperative antibiotics and tranexamic acid. a tourniquet was applied the proximal aspect of the left leg. nonsterile drapes were applied. the left leg was then prepped and draped in the standard sterile fashion. Prior to starting surgery timeout was performed identifying the correct patient, operative extremity, and procedure. the patient's leg was then elevated, exsanguinated with an Esmarch bandage, and the tourniquet was inflated to 250 mmHg. I began by making an incision over her prior surgical scar on the anterior aspect of the knee. The incision was extended proximally to find normal tissue planes. Dissection was carried down to the first fascial layer. Medial and lateral flaps were elevated deep to the fascia. The soft tissue was gently adherent requirinng extended surgical exposure. The knee was aspirated and cloudy red tinged fluid was aspirated. A medial parapatellar arthrotomy was performed. An extensive debridement and synovectomy was then performed of the subcutaneous tissue , medial gutter , lateral gutter, and behind the patellar tendon. the polyethylene liner was then removed. the femur was then carefully debonded using a sagittal saw and reciprocating saw. The implant was found to be loose and was easily removed. There was minimal bone loss. The proximal tibia was then exposed. The tibial baseplate was found to be loose. Using a combination of sagittal and reciprocating saws the tibial baseplate was removed. The cement plug in the tibia was opened and cement was removed. The canal was then reamed. The tibia was sized with size 3 baseplate. The femur was then exposed. The canal was opened and reamed for debridement. The femur was then sized to a 3. A box cut was made for a PS implant. I then trialed with a size 3 femur , size 3 tibial baseplate, and a 13 mm polyethylene liner. at this point a second extensive debridement was performed followed by a thorough irrigation and debridement using 3 L of sterile saline , a dilute Betadine rinse , 3 L of sterile saline , a dilute acetic acid rinse , 3 L of sterile saline , a dilute peroxide rents , and 3 L of sterile saline. Clean drapes were applied. 2 bags of cement were mixed with 4 g of vancomycin and 2 g of tobramycin mixed per bag. Dowels were created for the femoral canal and tibia to the polyliner. once the cement hardened the second 2 bags of cement were mixed again with 4 grams of vancomycin and 3 g of tobramycin per bag. the tibial polyethylene liner was loosely cemented onto the tibia and the femoral component was loosely cemented on to the femur. The tourniquet was let down. Once the cement had hardened the wound was thoroughly irrigated with 3 L of sterile saline. All bleeders were controlled with electrocautery. 2 g of vancomycin powder and 1 g of tobramycin powder was placed in the wound. A deep drain was placed. A layered closure using monofilament sutures was performed. Due to this being a revision procedure a Prevena wound VAC incisional VAC was placed over the incision measuring 20 cm. all sterile, sponge, and sharp counts were correct. drapes were taken down and an Tripp wrap was applied to provide compression. she was then brought to the recovery having tolerated the procedure well. Allegra Arechiga PA-C was required as a skilled multimedia production assistant due to the surgical complexity of this case. Plan: the patient can weight-bear as tolerated on her left leg. she can resume Coumadin for DVT prophylaxis. I would like her treated with IV antibiotics for 6 weeks the PICC line. Infectious disease has been consulted. Following 6 weeks of IV antibiotics she will need a 2 week holiday off antibiotics after which I will aspirate her knee. If there is no sign of infection we will plan reimplantation.
[2022-05-08 20:10] LABS: Glucose,Whole Blood 238 mg/dL (75-99)
--- NOTE | 2022-05-08 20:18 | XR ---
EXAMINATION TYPE: XR knee limited LT DATE OF EXAM: 05/08/2022 7:45 PM INDICATION: Patient age:Female; 62 years old; Reason for study: post op; COMPARISON: None. TECHNIQUE: The left knee(s) was examined in frontal and lateral projections. FINDINGS: Postoperative changes in the soft tissues around the left knee. Presumed antibiotic infus ed cement is in place. There remains femoral component in place. No evidence of fracture. Hardware ro ds are intact. IMPRESSION: Postsurgical changes with presumed antibiotic infused cement in place without evidence for acute frac ture. Hardware is intact.
[2022-05-08 21:11] LABS: Glucose,Whole Blood 253 mg/dL (75-99)
[2022-05-08] MEDS ORDERED: ALBUTEROL NEBULIZED 2.5 MG/3 ML INHALATION PRN (21:46)
[2022-05-08] MEDS ORDERED: clonazePAM 1 MG TAB PO PRN (21:46)
[2022-05-08] MEDS: HYDROcodone/APAP 5-325MG 1 EACH TAB PO PRN (21:59)
[2022-05-09] MEDS: LEVOTHYROXINE 112 MCG TAB PO SCH ×2 (00:17→17:05)
[2022-05-09] MEDS: clonazePAM 1 MG TAB PO SCH ×2 (00:17→19:49)
[2022-05-09] MEDS: SENNOSIDES-DOCUSATE SODIUM 1 EACH TAB PO SCH ×2 (00:17→19:50)
[2022-05-09] MEDS: OLANZapine 10 MG TAB PO SCH ×2 (00:19→19:49)
[2022-05-09] MEDS: HYDROmorphone 0.5 MG/0.5 ML SYRINGE IVP PRN ×4 (01:47→19:37)
[2022-05-09] MEDS: HYDROcodone/APAP 5-325MG 1 EACH TAB PO PRN ×3 (05:44→19:48)
[2022-05-09 07:05] LABS: Glucose,Whole Blood 198 mg/dL (75-99)
[2022-05-09] MEDS: INSULIN ASPART (NovoLOG) 100 UNIT/ML VIAL SQ SCH ×4 (07:16→21:07)
[2022-05-09 09:39] LABS: Basophils % (A) 0 %; Eosinophils % (A) 0 %; HCT 28.6 % (34.0-46.0); HGB 9.2 gm/dL (11.4-16.0); Lymphocytes # (A) 0.6 k/uL (1.0-4.8); Lymphocytes % (A) 8 %; MCH 27.9 pg (25.0-35.0); MCHC 32.1 g/dL (31.0-37.0); MCV 86.8 fL (80.0-100.0); Mean Platelet Volume 7.4; Monocytes # (A) 0.3 k/uL (0-1.0); Monocytes % (A) 5 %; Neutrophils # (A) 6.4 k/uL (1.3-7.7); Neutrophils % (A) 86 %; Platelet Count 243 k/uL (150-450); RDW 14.8 % (11.5-15.5); WBC 7.5 k/uL (3.8-10.6)
[2022-05-09 09:46] LABS: Prothrombin Time 11.2 sec (9.0-12.0)
[2022-05-09 09:51] LABS: ALT 20 U/L (4-34); AST 28 U/L (14-36); African American GFR (CKD) 57 (>60 ml/min/1.73 sqM); Albumin 3.8 g/dL (3.5-5.0); Albumin/Globulin Ratio 1.6; Alkaline Phosphatase 61 U/L (38-126); Anion Gap 11 mmol/L; Blood Urea Nitrogen 25 mg/dL (7-17); Calcium 8.6 mg/dL (8.4-10.2); Carbon Dioxide 21 mmol/L (22-30); Chloride 99 mmol/L (98-107); Globulin 2.4 g/dL; Glucose 206 mg/dL (74-99); Non-African American GFR(CKD) 49 (>60 ml/min/1.73 sqM); Potassium 4.2 mmol/L (3.5-5.1); Sodium 131 mmol/L (137-145); Total Bilirubin 0.2 mg/dL (0.2-1.3); Total Protein 6.2 g/dL (6.3-8.2)
--- NOTE | 2022-05-09 09:52 | P.CONS ---
History of Present Illness - Reason for Consult Consult date: 05/09/22 Medical management Requesting physician: Rakesh Gonzalez - Chief Complaint Chronic joint infection, OA of the left knee - History of Present Illness This is a 62-year-old female patient who presented for an elective left knee arthroplasty with complex removal of prosthetic, fabrication insertion of nonbiodegradable drug delivery implant and irrigation and debridement of subcutaneous tissue muscle and bone and thigh. Patient has a complex medical history including chronic joint infection, coronary artery disease, aortic valve replacement which is maintained on Coumadin. Coumadin has been held since last Saturday. Patient was recently treated with IV antibiotics for bacteremia. Additional medical history includes diabetes mellitus type 2, GERD, hiatal retention, sleep apnea and thyroid disorder. Per orthopedic service is patient tender weight-bear as tolerated to left leg is okay to resume Coumadin for DVT prophylaxis. Patient will need PICC line in the antibiotics for 6 weeks infectious disease services have been consulted. PICC line has been ordered. CBC CMP and INR has been ordered. Pharmacy to dose Coumadin for mechanical valve. At this time patient is sitting comfortably in chair. Patient has been up ambulating with physical therapy. Patient denies chest pain or shortness breath. Patient denies nausea vomiting or diarrhea. Patient denies any urinary burning or frequency Review of Systems please refer to HPI otherwise unremarkable Past Medical History Past Medical History: Diabetes Mellitus, GERD/Reflux, Hyperlipidemia, Hypertension, Pneumonia, Sleep Apnea/CPAP/BIPAP, Thyroid Disorder Additional Past Medical History / Comment(s): IDDM type II, neuropathy bilateral feet, rheumatic fever at age 11yrs/scar tissue on valve, aortic valve replacement (mechanical), pt states she had a blood clot around aortic valve prior to surgery, POLLO but does not tolerate Cpap, constipation, L ovarian cyst, hypothyroid., states infection left knee. History of Any Multi-Drug Resistant Organisms: None Reported Year Discovered:: 2013 Past Surgical History: Appendectomy, Cardiac Valve Replacement, Section, Joint Replacement, Orthopedic Surgery Additional Past Surgical History / Comment(s): BLANCA, aortic valve replacement (mechanical), L total knee arthroplasty, L foot bunionectomy, EGDs, colonoscopy. Past Anesthesia/Blood Transfusion Reactions: Previous Problems w/ Anesthesia Additional Past Anesthesia/Blood Transfusion Reaction / Comm: Stopped breathing when a EGD was done Past Psychological History: Anxiety, Bipolar Additional Psychological History / Comment(s): Pt resides with her 2 children ages 15 and 19 yrs. She uses a cane to ambulate and occasionally a walker. 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 Smoking Status: Never smoker Past Alcohol Use History: None Reported Additional Past Alcohol Use History / Comment(s): . Past Drug Use History: None Reported - Past Family History Father Additional Family Medical History / Comment(s): Bipolar and ETOH abuse. Mother Additional Family Medical History / Comment(s): ETOH abuse. Medications and Allergies Home Medications Medication Instructions Recorded Confirmed Type Metoprolol Succinate (ER) [Toprol 100 mg PO PC-SUPPER 02/02/21 05/07/22 History XL] OLANZapine [ZyPREXA] 20 mg PO HS 02/02/21 05/07/22 History Venlafaxine HCl [Effexor XR] 300 mg PO PC-SUPPER 02/02/21 05/07/22 History clonazePAM 1 mg PO HS 02/02/21 05/07/22 History lisinopriL [Zestril] 5 mg PO PC-SUPPER 02/02/21 05/07/22 History Empagliflozin [Jardiance] 10 mg PO DAILY 09/19/21 05/07/22 History traMADol HCL 100 mg PO TID PRN 01/17/22 05/08/22 History Insulin Aspart [NovoLOG Flexpen] 25 units SQ AC-TID 03/02/22 05/07/22 History Acetaminophen Tab [Tylenol] 650 mg PO Q6HR PRN tab 03/12/22 05/07/22 Rx Albuterol Inhaler [Ventolin Hfa 1 puff INHALATION RT-QID PRN 30 03/12/22 05/07/22 Rx Inhaler] Days #8 gm Fluticasone Nasal [place] [Flonase 2 spray EA NOSTRIL DAILY 30 Days 03/12/22 05/07/22 Rx Nasal [place]] #1 gm Warfarin [Coumadin] 10 mg PO DAILY 30 Days #30 tab 03/12/22 05/07/22 Rx Levothyroxine Sodium 112 mg PO PC-SUPPER 04/24/22 05/07/22 History metFORMIN HCL [Glucophage] 100 mg PO PC-SUPPER 04/24/22 05/07/22 History clonazePAM 1 mg PO DAILY PRN 05/01/22 05/07/22 History Insulin Glargine,Hum.rec.anlog 25 unit SQ W/SUPPER 05/07/22 05/07/22 History [Basaglar Kwikpen U-100] Cephalexin [Keflex] 500 mg PO Q8HR 05/08/22 05/08/22 History Allergies Allergy/AdvReac Type Severity Reaction Status Date / Time lactose Allergy Unknown Diarrhea Verified 05/08/22 13:53 codeine AdvReac UPSET Verified 05/08/22 13:53 STOMACH Physical Exam Vitals: Vital Signs Temp Pulse Pulse Resp BP Pulse Ox 05/09/22 08:53 74 05/09/22 08:39 72 05/09/22 02:00 97.9 F 68 18 117/62 98 05/08/22 20:15 72 18 119/71 96 05/08/22 20:00 96 18 108/63 98 05/08/22 19:45 68 16 136/63 97 05/08/22 19:30 97.3 F L 72 16 132/74 97 05/08/22 14:32 98.5 F 64 16 106/66 95 Intake and Output 05/08/22 05/09/22 05/09/22 22:59 06:59 14:59 Intake Total 1450 Output Total 300 Balance 1150 Intake: IV 1450 Output: Estimated Blood Loss 300 Head normocephalic Neck supple Lungs clear to auscultation bilaterally no wheezing or crackles Heart regular rate and rhythm S1-S2, no rub or gallop Abdomen is soft nontender nondistended positive bowel sounds no hepatosplenomegaly Extremities no edema left knee dressing clean dry and intact Neuro alert and orientated to 3 Results CBC & Chem 7: 05/09/22 09:16 Labs: Abnormal Lab Results - Last 24 Hours (Table) 05/08/22 05/08/22 05/08/22 Range/Units 14:29 20:08 21:10 RBC (3.80-5.40) m/uL Hgb (11.4-16.0) gm/dL Hct (34.0-46.0) % Lymphocytes # (1.0-4.8) k/uL POC Glucose (mg/dL) 141 H 238 H 253 H (75-99) mg/dL 05/09/22 05/09/22 Range/Units 07:03 09:16 RBC 3.30 L (3.80-5.40) m/uL Hgb 9.2 L (11.4-16.0) gm/dL Hct 28.6 L (34.0-46.0) % Lymphocytes # 0.6 L (1.0-4.8) k/uL POC Glucose (mg/dL) 198 H (75-99) mg/dL Microbiology - Last 24 Hours (Table) 05/08/22 16:25 Gram Stain - Preliminary Synovial Fluid Body Fluid Culture - Preliminary 05/08/22 16:25 Gram Stain - Preliminary Knee - Left Tissue Culture - Preliminary 05/08/22 16:25 Gram Stain - Preliminary Knee - Left Tissue Culture - Preliminary 05/08/22 16:25 Anaerobic Culture - Preliminary Synovial Fluid Assessment and Plan Assessment: 1. S/P elective left knee arthroplasty with complex removal of prosthetic, fabrication insertion of nonbiodegradable drug delivery implant and irrigation and debridement of subcutaneous tissue muscle and bone and thigh. 2. History of chronic joint infection with prostatic 3. Recent Bacteremia with IV antibiotics. 4. History of aortic valve replacement with mechanical valve. Patient's Coumadin has been on hold. Okay to resume per orthopedic services 5. History of insulin-dependent diabetes mellitus type 2 6. History of essential hypertension 7. History of hyperlipidemia 8. History of hypothyroidism 9. History of bipolar disorder and schizoaffective disorder Thank you for this consultation we will continue to follow patient closely Pharmacy to dose Coumadin resumed CBC, CMP and PT/INR ordered PICC line ordered per orthopedic recommendation. Patient will need 6 weeks of I V antibiotics Infectious disease service is consulted Time with Patient: Greater than 30 (Greater than 60% of the total time spent in counseling and coordination of care)
[2022-05-09 09:55] LABS: Basophils # (A) 0.02 X 10*3/uL (0.00-0.10); Basophils % (A) 0.3 %; Eosinophils # (A) 0 X 10*3/uL (0.04-0.35); Eosinophils % (A) 0 %; HCT 26.3 % (37.2-46.3); HGB 8.4 g/dL (12.0-15.0); Immature Grans, Automated 0.8 %; Lymphocytes % (A) 5.1 %; MCH 27.4 pg (27.0-32.0); MCHC 31.9 g/dL (32.0-37.0); MCV 85.7 fL (80.0-97.0); Mean Platelet Volume 9.3 fL (9.5-12.2); Monocytes # (A) 0.41 X 10*3/uL (0.20-1.00); Monocytes % (A) 5.3 %; NRBC Per 100 WBC 0 /100 WBCS (0.0-0.0); Neutrophils # (A) 6.91 X 10*3/uL (1.80-7.70); Neutrophils % (A) 88.5 %; Platelet Count 214 X 10*3/uL (140-440); RBC 3.07 X 10*6/uL (4.10-5.20); RDW 14.4 % (11.5-14.5)
[2022-05-09] MEDS: LACTATED RINGERS 1,000 ML IV SCH (10:16)
[2022-05-09] MEDS ORDERED: LIDOCAINE 1% INJ 10MG/ML (5 ML VIAL-PF) SQ ONE (10:51)
[2022-05-09 11:31] LABS: Glucose,Whole Blood 225 mg/dL (75-99)
[2022-05-09] MEDS ORDERED: VANCOMYCIN IV PER PHARMACY 1 EACH MISC MISCELLANE PRN (11:39)
[2022-05-09] MEDS: FLUTICASONE 50MCG/SPRAY NASAL 16GM EA NOSTRIL SCH (11:49)
[2022-05-09] MEDS: ENOXAPARIN 100 MG/ML SYRINGE SQ SCH ×2 (11:50→22:39)
[2022-05-09] MEDS ORDERED: VANCOMYCIN 1,750 MG in SODIUM CHLORIDE 0.9% 500 ML 500 ML IVPB ONE (12:30)
--- NOTE | 2022-05-09 13:08 | IR ---
EXAMINATION TYPE: IR cvc insert >=5 years DATE OF EXAM: 05/09/2022 COMPARISON: NONE CLINICAL HISTORY: Infection Needs long-term intravenous access for antibiotics. PROCEDURE: Hand hygiene obtained with soap and water and alcohol-based hand rub. After informed consent, the skin overlying the left basilic vein was localized with ultrasound and no delano to be compressible and patent. An ultrasound image was obtained and submitted on the patient's c ceron. The overlying skin was prepped and draped and Lidocaine was used for local anesthesia. A skin leslie was made with a scalpel. Access was gained to the vein under ultrasound guidance with a 21 gau ge needle and a 0.018 inch wire was advanced. Access site was dilated with Peel-Away sheath and cath eter tailored to the appropriate length and advanced such that the distal tip is at the cavoatrial ju nction. Spot image was obtained verifying placement. Catheter was fixed to the skin and a sterile d ressing was placed following hemostasis. Catheter was aspirated and flushed with saline. Patient wa s discharged in stable condition without complication. Maximal barrier technique is utilized. Ultras ound image is documented on the chart. Ultrasound used with sterile technique. Fluoro time and fluoroscopic images submitted to document procedure: 24 intraoperative C-arm images, 0.1 minutes fluoroscopy time IMPRESSION: STATUS POST ULTRASOUND AND FLUOROSCOPIC GUIDED PICC LINE PLACEMENT, READY FOR USE. THIS PROCEDURE WAS PERFORMED BY THE UNDERSIGNED.
[2022-05-09] MEDS: CEFEPIME 2 GM in SODIUM CHLORIDE 0.9% 100 ML IVPB SCH (15:37)
[2022-05-09] MEDS ORDERED: CEFEPIME 2 GM in SODIUM CHLORIDE 0.9% 100 ML IVPB SCH (16:00)
[2022-05-09 16:45] LABS: Glucose,Whole Blood 159 mg/dL (70-110)
[2022-05-09] MEDS: VENLAFAXINE HCL ER 150 MG CAP PO SCH (17:05)
[2022-05-09] MEDS: lisinopriL 5 MG TAB PO SCH (17:05)
[2022-05-09] MEDS: METOPROLOL SUCCINATE (ER) 100 MG TAB.ER.24H PO SCH (17:05)
[2022-05-09] MEDS ORDERED: WARFARIN 10 MG TAB PO ONE (18:00)
[2022-05-09 21:01] LABS: Glucose,Whole Blood 198 mg/dL (70-110)
--- NOTE | 2022-05-09 22:37 | P.CONS ---
History of Present Illness - Reason for Consult Consult date: 05/09/22 Periprosthetic joint infection Requesting physician: Allegra Arechiga - Chief Complaint Left knee pain x weeks - History of Present Illness Patient is a 62-year-old female who was recently admitted at this facility back in February 2022 patient did have evidence of MSSA bacteremia at that point was thought to be related to the right antibiotic for infection patient did have a 2D echocardiogram as well as BLANCA that was negative for any vegetation patient also have a problem with left knee pain and did have an aspirate of the left knee on 03/09/2020 which was negative patient subsequently did contact PICC line and has been treated for underlying bacteremia patient subsequently has been followed by orthopedic in the outpatient setting and concern for possible left knee septic arthritis the patient was taken to the OR yesterday afternoon and the patient is status post removal of the left knee prosthesis I&D and placement of the left knee implant culture has been obtained patient subsequently has been admitted to the hospital infectious disease was consulted for further management of antibiotic therapy. Patient currently denies having any fever or any chills has been complaining of pain to the left knee area to be more of a throbbing almost 7-8 out of 10 with some relief with the pain medication patient denies having any chest pain or shortness of breath or cough no nausea no vomiting no abdominal pain no diarrhea Review of Systems Positive point has been mentioned in the HPI rest of the systems are negative Past Medical History Past Medical History: Diabetes Mellitus, GERD/Reflux, Hyperlipidemia, Hypertension, Pneumonia, Sleep Apnea/CPAP/BIPAP, Thyroid Disorder Additional Past Medical History / Comment(s): IDDM type II, neuropathy bilateral feet, rheumatic fever at age 11yrs/scar tissue on valve, aortic valve replacement (mechanical), pt states she had a blood clot around aortic valve prior to surgery, POLLO but does not tolerate Cpap, constipation, L ovarian cyst, hypothyroid., states infection left knee. History of Any Multi-Drug Resistant Organisms: None Reported Year Discovered:: 2013 Past Surgical History: Appendectomy, Cardiac Valve Replacement, Section , Joint Replacement, Orthopedic Surgery Additional Past Surgical History / Comment(s): BLANCA, aortic valve replacement (mechanical), L total knee arthroplasty, L foot bunionectomy, EGDs, colonoscopy. Past Anesthesia/Blood Transfusion Reactions: Previous Problems w/ Anesthesia Additional Past Anesthesia/Blood Transfusion Reaction / Comm: Stopped breathing when a EGD was done Past Psychological History: Anxiety, Bipolar Additional Psychological History / Comment(s): Pt resides with her 2 children ages 15 and 19 yrs. She uses a cane to ambulate and occasionally a walker. She does not have a [place] driver's license, she gets to [facility], [place] by bus or her sister. Smoking Status: Never smoker Past Alcohol Use History: None Reported Additional Past Alcohol Use History / Comment(s): . Past Drug Use History: None Reported - Past Family History Father Additional Family Medical History / Comment(s): Bipolar and ETOH abuse. Mother Additional Family Medical History / Comment(s): ETOH abuse. Medications and Allergies Home Medications Medication Instructions Recorded Confirmed Type Metoprolol Succinate (ER) [Toprol 100 mg PO PC-SUPPER 02/02/21 05/07/22 History XL] OLANZapine [ZyPREXA] 20 mg PO HS 02/02/21 05/07/22 History Venlafaxine HCl [Effexor XR] 300 mg PO PC-SUPPER 02/02/21 05/07/22 History clonazePAM 1 mg PO HS 02/02/21 05/07/22 History lisinopriL [Zestril] 5 mg PO PC-SUPPER 02/02/21 05/07/22 History Empagliflozin [Jardiance] 10 mg PO DAILY 09/19/21 05/07/22 History traMADol HCL 100 mg PO TID PRN 01/17/22 05/08/22 History Insulin Aspart [NovoLOG Flexpen] 25 units SQ AC-TID 03/02/22 05/07/22 History Acetaminophen Tab [Tylenol] 650 mg PO Q6HR PRN tab 03/12/22 05/07/22 Rx Albuterol Inhaler [Ventolin Hfa 1 puff INHALATION RT-QID PRN 30 03/12/22 05/07/22 Rx Inhaler] Days #8 gm Fluticasone Nasal [place] [Flonase 2 spray EA NOSTRIL DAILY 30 Days 03/12/22 05/07/22 Rx Nasal [place]] #1 gm Warfarin [Coumadin] 10 mg PO DAILY 30 Days #30 tab 03/12/22 05/07/22 Rx Levothyroxine Sodium 112 mg PO PC-SUPPER 04/24/22 05/07/22 History metFORMIN HCL [Glucophage] 100 mg PO PC-SUPPER 04/24/22 05/07/22 History clonazePAM 1 mg PO DAILY PRN 05/01/22 05/07/22 History Insulin Glargine,Hum.rec.anlog 25 unit SQ W/SUPPER 05/07/22 05/07/22 History [Basaglar Kwikpen U-100] Cephalexin [Keflex] 500 mg PO Q8HR 05/08/22 05/08/22 History Allergies Allergy/AdvReac Type Severity Reaction Status Date / Time lactose Allergy Unknown Diarrhea Verified 05/08/22 13:53 codeine AdvReac UPSET Verified 05/08/22 13:53 STOMACH Physical Exam Vitals: Vital Signs Temp Pulse Pulse Resp BP Pulse Ox 05/09/22 08:53 74 05/09/22 08:39 72 05/09/22 08:00 97.9 F 75 16 101/65 95 05/09/22 02:00 97.9 F 68 18 117/62 98 05/08/22 20:15 72 18 119/71 96 05/08/22 20:00 96 18 108/63 98 05/08/22 19:45 68 16 136/63 97 05/08/22 19:30 97.3 F L 72 16 132/74 97 05/08/22 14:32 98.5 F 64 16 106/66 95 Intake and Output 05/08/22 05/09/22 05/09/22 22:59 06:59 14:59 Intake Total 1450 Output Total 300 Balance 1150 Intake: IV 1450 Output: Estimated Blood Loss 300 GENERAL DESCRIPTION: Middle-aged female lying in bed, no distress. No tachypnea or accessory muscle of respiration use. HEENT: Shows Pallor , no scleral icterus. Oral mucous membrane is dry. No pharyngeal erythema or thrush NECK: Trachea central, no thyromegaly. LUNGS: Unlabored breathing. Clear to auscultation anteriorly. No wheeze or crackle. HEART: S1, S2, regular rate and rhythm. No loud murmur ABDOMEN: Soft, no tenderness , guarding or rigidity, no organomegaly EXTREMITIES: No edema of feet. left is currently dressed SKIN: No rash, no masses palpable. NEUROLOGICAL: The patient is awake, alert, oriented x3, mood and affect normal. Results CBC & Chem 7: 05/09/22 09:16 06/15/22 09:16 Labs: Abnormal Lab Results - Last 24 Hours (Table) 05/08/22 05/08/22 05/08/22 Range/Units 14:29 20:08 21:10 RBC (4.10-5.20) X 10*6/uL Hgb (12.0-15.0) g/dL Hct (37.2-46.3) % MCHC (32.0-37.0) g/dL MPV (9.5-12.2) fL Immature Gran # (0.00-0.04) X 10*3/uL Lymphocytes # (0.90-5.00) X 10*3/uL Eosinophils # (0.04-0.35) X 10*3/uL Sodium (137-145) mmol/L Carbon Dioxide (22-30) mmol/L BUN (7-17) mg/dL Creatinine (0.52-1.04) mg/dL Glucose (74-99) mg/dL POC Glucose (mg/dL) 141 H 238 H 253 H (75-99) mg/dL Total Protein (6.3-8.2) g/dL 05/09/22 05/09/22 05/09/22 Range/Units 04:57 07:03 09:16 RBC 3.07 L 3.30 L (4.10-5.20) X 10*6/uL Hgb 8.4 L 9.2 L (12.0-15.0) g/dL Hct 26.3 L 28.6 L (37.2-46.3) % MCHC 31.9 L (32.0-37.0) g/dL MPV 9.3 L (9.5-12.2) fL Immature Gran # 0.06 H (0.00-0.04) X 10*3/uL Lymphocytes # 0.40 L 0.6 L (0.90-5.00) X 10*3/uL Eosinophils # 0 L (0.04-0.35) X 10*3/uL Sodium (137-145) mmol/L Carbon Dioxide (22-30) mmol/L BUN (7-17) mg/dL Creatinine (0.52-1.04) mg/dL Glucose (74-99) mg/dL POC Glucose (mg/dL) 198 H (75-99) mg/dL Total Protein (6.3-8.2) g/dL 05/09/22 05/09/22 Range/Units 09:16 11:28 RBC (4.10-5.20) X 10*6/uL Hgb (12.0-15.0) g/dL Hct (37.2-46.3) % MCHC (32.0-37.0) g/dL MPV (9.5-12.2) fL Immature Gran # (0.00-0.04) X 10*3/uL Lymphocytes # (0.90-5.00) X 10*3/uL Eosinophils # (0.04-0.35) X 10*3/uL Sodium 131 L (137-145) mmol/L Carbon Dioxide 21 L (22-30) mmol/L BUN 25 H (7-17) mg/dL Creatinine 1.20 H (0.52-1.04) mg/dL Glucose 206 H (74-99) mg/dL POC Glucose (mg/dL) 225 H (75-99) mg/dL Total Protein 6.2 L (6.3-8.2) g/dL Microbiology - Last 24 Hours (Table) 05/08/22 16:25 Gram Stain - Preliminary Synovial Fluid Body Fluid Culture - Preliminary 05/08/22 16:25 Gram Stain - Preliminary Knee - Left Tissue Culture - Preliminary 05/08/22 16:25 Gram Stain - Preliminary Knee - Left Tissue Culture - Preliminary 05/08/22 16:25 Anaerobic Culture - Preliminary Synovial Fluid Assessment and Plan (1) Status post total left knee replacement Current Visit: No Status: Acute Code(s): Z96.652 - PRESENCE OF LEFT ARTIFICIAL KNEE JOINT SNOMED Code(s): 8817391524618 Plan: 1patient presented to hospital with a chronic pain to the left knee area and this patient recently did have a history of MSSA bacteremia however at that point aspirate of the left knee was negative patient was status post excisional arthroplasty and placement of a left knee implant with operative cultures currently pending. 2we will check a CRP and a sed rate and repeat blood culture. 3we will wait for the left knee cultures to be finalized. 4we will start the patient on vancomycin and cefepime combination while waiting for the culture to finalize We will follow on clinical condition and cultures to further adjust medication if needed Thank you for this consultation will follow this patient along with you Time with Patient: Greater than 30
[2022-05-09] MEDS: oxyCODONE-APAP 10-325MG 1 EACH TAB PO PRN (22:38)
[2022-05-09 23:23] LABS: % Iron Saturation 17.59 (12.00-45.00)
[2022-05-10] MEDS: CEFEPIME 2 GM in SODIUM CHLORIDE 0.9% 100 ML IVPB SCH ×2 (05:18→16:20)
[2022-05-10] MEDS: LACTATED RINGERS 1,000 ML IV SCH (05:43)
[2022-05-10] MEDS: VANCOMYCIN 1,500 MG in SODIUM CHLORIDE 0.9% 250 ML IVPB SCH ×2 (06:36→23:21)
[2022-05-10 06:55] LABS: Glucose,Whole Blood 193 mg/dL (70-110)
[2022-05-10] MEDS: INSULIN ASPART (NovoLOG) 100 UNIT/ML VIAL SQ SCH ×4 (08:00→21:39)
[2022-05-10] MEDS: ENOXAPARIN 100 MG/ML SYRINGE SQ SCH ×2 (08:00→20:08)
[2022-05-10] MEDS: FLUTICASONE 50MCG/SPRAY NASAL 16GM EA NOSTRIL SCH (08:00)
[2022-05-10] MEDS: HYDROcodone/APAP 5-325MG 1 EACH TAB PO PRN ×2 (08:26→14:37)
--- NOTE | 2022-05-10 08:38 | P.PN ---
Subjective Progress Note Date: 05/09/22 This patient is a 62- year old female who is status-post removal of prosthesis left knee TKA, I&D, and insertion of articulating spacer on 05/08/22. Today is post-operative day #1. Patient is examined bedside. She states she is having moderate pain in the knee. She has been ambulating with a walker per [facility]. She did have a PICC line placed today. She has no additional complaints at this time. Vital signs stable. Objective - Vital Signs Vital signs: Vital Signs Temp 98.1 F 05/10/22 07:27 Pulse 66 05/10/22 07:27 Resp 17 05/10/22 07:27 BP 101/64 05/10/22 07:27 Pulse Ox 92 L 05/10/22 07:27 FiO2 Intake & Output 05/09/22 05/10/22 05/10/22 18:59 06:59 18:59 Intake Total 1080 296 Output Total 40 Balance 1040 296 Intake: Oral 1080 296 Output: Drainage 40 Left Knee 40 Other: # Voids 3 1 - Exam On examination, patient is sitting up in bed in no apparent distress. She is alert and orientated x3. On inspection of the left knee, there is mild swelling. Prevena wound vac in place with good seal. Hemovac drain in place. Motor and sensory function intact LLE. The LLE is warm and well perfused. - Labs CBC & Chem 7: 05/09/22 09:16 05/09/22 09:16 Labs: Abnormal Lab Results - Last 24 Hours (Table) 05/09/22 05/09/22 05/09/22 Range/Units 04:57 04:57 09:16 RBC 3.07 L 3.30 L (4.10-5.20) X 10*6/uL Hgb 8.4 L 9.2 L (12.0-15.0) g/dL Hct 26.3 L 28.6 L (37.2-46.3) % MCHC 31.9 L (32.0-37.0) g/dL MPV 9.3 L (9.5-12.2) fL Immature Gran # 0.06 H (0.00-0.04) X 10*3/uL Lymphocytes # 0.40 L 0.6 L (0.90-5.00) X 10*3/uL Eosinophils # 0 L (0.04-0.35) X 10*3/uL Sodium (137-145) mmol/L Carbon Dioxide (22-30) mmol/L BUN (7-17) mg/dL Creatinine (0.52-1.04) mg/dL Glucose (74-99) mg/dL POC Glucose (mg/dL) (75-99) mg/dL Hemoglobin A1c 6.7 H (0.0-6.0) % Total Protein (6.3-8.2) g/dL 05/09/22 05/09/22 05/09/22 Range/Units 09:16 11:28 16:43 RBC (4.10-5.20) X 10*6/uL Hgb (12.0-15.0) g/dL Hct (37.2-46.3) % MCHC (32.0-37.0) g/dL MPV (9.5-12.2) fL Immature Gran # (0.00-0.04) X 10*3/uL Lymphocytes # (0.90-5.00) X 10*3/uL Eosinophils # (0.04-0.35) X 10*3/uL Sodium 131 L (137-145) mmol/L Carbon Dioxide 21 L (22-30) mmol/L BUN 25 H (7-17) mg/dL Creatinine 1.20 H (0.52-1.04) mg/dL Glucose 206 H (74-99) mg/dL POC Glucose (mg/dL) 225 H 159 H (75-99) mg/dL Hemoglobin A1c (0.0-6.0) % Total Protein 6.2 L (6.3-8.2) g/dL 05/09/22 05/10/22 Range/Units 21:00 06:54 RBC (4.10-5.20) X 10*6/uL Hgb (12.0-15.0) g/dL Hct (37.2-46.3) % MCHC (32.0-37.0) g/dL MPV (9.5-12.2) fL Immature Gran # (0.00-0.04) X 10*3/uL Lymphocytes # (0.90-5.00) X 10*3/uL Eosinophils # (0.04-0.35) X 10*3/uL Sodium (137-145) mmol/L Carbon Dioxide (22-30) mmol/L BUN (7-17) mg/dL Creatinine (0.52-1.04) mg/dL Glucose (74-99) mg/dL POC Glucose (mg/dL) 198 H 193 H (75-99) mg/dL Hemoglobin A1c (0.0-6.0) % Total Protein (6.3-8.2) g/dL Microbiology - Last 24 Hours (Table) 05/08/22 16:25 Gram Stain - Preliminary Knee - Left Tissue Culture - Preliminary 05/08/22 16:25 Gram Stain - Preliminary Knee - Left Tissue Culture - Preliminary 05/08/22 16:25 Gram Stain - Preliminary Synovial Fluid Body Fluid Culture - Preliminary Assessment and Plan Assessment: Status-post removal of prosthesis left knee TKA, I&D, and insertion of articulating spacer on 05/08/22. Post-operative day #1. Plan: - Weight bear as tolerated on operative extremity with a walker. - Physical therapy for gait and balance training. - Pain management as needed. Will increase to Percocet 5/325mg. - IV antibiotics per infectious disease. PICC line placed earlier today. Will follow intra-op cultures. - DVT prophylaxis per internal medicine. Patient takes Coumadin. - Leave prevena wound vac in place. Leave hemovac drain in place. - Anticipate discharge home when cleared from internal medicine and infectious disease.
[2022-05-10 09:41] LABS: Basophils # (A) 0.04 X 10*3/uL (0.00-0.10); Eosinophils # (A) 0.14 X 10*3/uL (0.04-0.35); Eosinophils % (A) 3.5 %; HCT 27.7 % (37.2-46.3); HGB 8.9 g/dL (12.0-15.0); Immature Grans, Automated 0.5 %; Lymphocytes # (A) 0.78 X 10*3/uL (0.90-5.00); Lymphocytes % (A) 19.3 %; MCH 27.7 pg (27.0-32.0); MCHC 32.1 g/dL (32.0-37.0); MCV 86.3 fL (80.0-97.0); Mean Platelet Volume 9.2 fL (9.5-12.2); Monocytes # (A) 0.34 X 10*3/uL (0.20-1.00); Monocytes % (A) 8.4 %; NRBC Per 100 WBC 0 /100 WBCS (0.0-0.0); Neutrophils # (A) 2.72 X 10*3/uL (1.80-7.70); Neutrophils % (A) 67.3 %; Platelet Count 210 X 10*3/uL (140-440); RBC 3.21 X 10*6/uL (4.10-5.20); RDW 14.6 % (11.5-14.5); WBC 4.04 X 10*3/uL (4.50-10.00)
[2022-05-10 09:48] LABS: African American GFR (CKD) 80.5 (60.0-200.0); Albumin 3.9 g/dL (3.8-4.9); Albumin/Globulin Ratio 1.77 (1.60-3.17); Anion Gap 7.3 mmol/L (10.00-18.00); Blood Urea Nitrogen 18.9 mg/dL (9.0-27.0); Carbon Dioxide 22.7 mmol/L (20.0-27.5); Globulin 2.2 g/dL (1.6-3.3); Non-African American GFR(CKD) 69.5 (60.0-200.0); Potassium 4.5 mmol/L (3.5-5.5); Total Bilirubin 0.2 mg/dL (0.30-1.20); Total Protein 6.1 g/dL (6.2-8.2)
[2022-05-10 10:13] LABS: INR 0.98 (0.90-1.11); Prothrombin Time 11.1 sec (9.9-11.9)
--- NOTE | 2022-05-10 11:17 | P.PN ---
Subjective Progress Note Date: 05/10/22 This patient is a 62- year old female who is status-post removal of prosthesis left knee TKA, I&D, and insertion of articulating spacer on 05/08/22. Today is post-operative day #2. Patient is examined bedside. She states her pain is well-controlled on Percocet. She is doing well with no complaints this morning. She denies chest pain, shortness of breath, nausea, vomiting, fevers, chills. Vital signs stable. Objective - Vital Signs Vital signs: Vital Signs Temp 98.1 F 05/10/22 07:27 Pulse 66 05/10/22 07:27 Resp 17 05/10/22 07:27 BP 101/64 05/10/22 07:27 Pulse Ox 92 L 05/10/22 08:43 FiO2 Intake & Output 05/09/22 05/10/22 05/10/22 18:59 06:59 18:59 Intake Total 1080 296 Output Total 40 Balance 1040 296 Intake: Oral 1080 296 Output: Drainage 40 Left Knee 40 Other: Voiding Method Toilet # Voids 3 1 - Exam On examination, patient is sitting up in bed in no apparent distress. She is alert and orientated x3. On inspection of the left knee, there is mild swelling. Tripp wrap, Prevena wound vac in place with good seal. Hemovac drain in place. Motor and sensory function intact LLE. The LLE is warm and well perfused. - Labs CBC & Chem 7: 05/10/22 05:44 05/10/22 05:44 Labs: Abnormal Lab Results - Last 24 Hours (Table) 05/09/22 05/09/22 05/09/22 Range/Units 04:57 11:28 16:43 WBC (4.50-10.00) X 10*3/uL RBC (4.10-5.20) X 10*6/uL Hgb (12.0-15.0) g/dL Hct (37.2-46.3) % RDW (11.5-14.5) % MPV (9.5-12.2) fL Lymphocytes # (0.90-5.00) X 10*3/uL Anion Gap (10.00-18.00) mmol/L BUN/Creatinine Ratio (12.00-20.00) Ratio Glucose (70-110) mg/dL POC Glucose (mg/dL) 225 H 159 H (75-99) mg/dL Hemoglobin A1c 6.7 H (0.0-6.0) % Total Bilirubin (0.30-1.20) mg/dL Total Protein (6.2-8.2) g/dL 05/09/22 05/10/22 05/10/22 Range/Units 21:00 05:44 05:44 WBC 4.04 L (4.50-10.00) X 10*3/uL RBC 3.21 L (4.10-5.20) X 10*6/uL Hgb 8.9 L (12.0-15.0) g/dL Hct 27.7 L (37.2-46.3) % RDW 14.6 H (11.5-14.5) % MPV 9.2 L (9.5-12.2) fL Lymphocytes # 0.78 L (0.90-5.00) X 10*3/uL Anion Gap 7.30 L (10.00-18.00) mmol/L BUN/Creatinine Ratio 21.00 H (12.00-20.00) Ratio Glucose 195 H (70-110) mg/dL POC Glucose (mg/dL) 198 H (75-99) mg/dL Hemoglobin A1c (0.0-6.0) % Total Bilirubin 0.20 L (0.30-1.20) mg/dL Total Protein 6.1 L (6.2-8.2) g/dL 05/10/22 Range/Units 06:54 WBC (4.50-10.00) X 10*3/uL RBC (4.10-5.20) X 10*6/uL Hgb (12.0-15.0) g/dL Hct (37.2-46.3) % RDW (11.5-14.5) % MPV (9.5-12.2) fL Lymphocytes # (0.90-5.00) X 10*3/uL Anion Gap (10.00-18.00) mmol/L BUN/Creatinine Ratio (12.00-20.00) Ratio Glucose (70-110) mg/dL POC Glucose (mg/dL) 193 H (75-99) mg/dL Hemoglobin A1c (0.0-6.0) % Total Bilirubin (0.30-1.20) mg/dL Total Protein (6.2-8.2) g/dL Microbiology - Last 24 Hours (Table) 05/08/22 16:25 Gram Stain - Preliminary Knee - Left Tissue Culture - Preliminary 05/08/22 16:25 Gram Stain - Preliminary Knee - Left Tissue Culture - Preliminary 05/08/22 16:25 Gram Stain - Preliminary Synovial Fluid Body Fluid Culture - Preliminary Assessment and Plan Assessment: Status-post removal of prosthesis left knee TKA, I&D, and insertion of articulating spacer on 05/08/22. Post-operative day #2. Plan: - Weight bear as tolerated on operative extremity with a walker. - Physical therapy for gait and balance training. - Pain management as needed. - IV antibiotics per infectious disease. PICC line placed 05/09. Will follow intra-op cultures. - DVT prophylaxis per internal medicine. Patient takes Coumadin. - Leave prevena wound vac in place. Leave hemovac drain in place. - Anticipate discharge home when cleared from internal medicine and infectious disease.
[2022-05-10 11:56] LABS: Glucose,Whole Blood 166 mg/dL (70-110)
[2022-05-10 17:06] LABS: Glucose,Whole Blood 164 mg/dL (70-110)
[2022-05-10] MEDS: lisinopriL 5 MG TAB PO SCH (17:47)
[2022-05-10] MEDS: VENLAFAXINE HCL ER 150 MG CAP PO SCH (17:47)
[2022-05-10] MEDS: LEVOTHYROXINE 112 MCG TAB PO SCH (17:47)
[2022-05-10] MEDS: METOPROLOL SUCCINATE (ER) 100 MG TAB.ER.24H PO SCH (17:47)
[2022-05-10] MEDS ORDERED: WARFARIN 10 MG TAB PO ONE (18:00)
[2022-05-10] MEDS: oxyCODONE-APAP 10-325MG 1 EACH TAB PO PRN (20:07)
[2022-05-10] MEDS: clonazePAM 1 MG TAB PO SCH (20:08)
[2022-05-10] MEDS: OLANZapine 10 MG TAB PO SCH (20:08)
[2022-05-10] MEDS: SENNOSIDES-DOCUSATE SODIUM 1 EACH TAB PO SCH (20:08)
[2022-05-10 20:32] LABS: Glucose,Whole Blood 213 mg/dL (70-110)
[2022-05-10 21:29] LABS: Erythrocyte Sedimentation Rate 41 mm/hr (0-20)
[2022-05-10 23:46] LABS: % Iron Saturation 11.09 (12.00-45.00); Ferritin 96.6 ng/mL (10.0-291.0); Iron 37 ug/dL (50-170); LDH 212 U/L (120-246); Rheumatoid Factor, Qnt <10 IU/mL (0-15); Total Iron Binding Capacity 335 ug/dL (228-460)
[2022-05-10 23:53] LABS: Immunoglobulin M 58.1 mg/dL (40.0-280.0)
[2022-05-11] MEDS: CEFEPIME 2 GM in SODIUM CHLORIDE 0.9% 100 ML IVPB SCH ×3 (04:22→19:28)
[2022-05-11] MEDS: HYDROcodone/APAP 5-325MG 1 EACH TAB PO PRN ×2 (05:50→13:40)
[2022-05-11 06:19] LABS: ALT 12 U/L (4-34); AST 18 U/L (14-36); African American GFR (CKD) 86 (>60 ml/min/1.73 sqM); Albumin 3.4 g/dL (3.5-5.0); Albumin/Globulin Ratio 1.4; Alkaline Phosphatase 63 U/L (38-126); Anion Gap 4 mmol/L; Blood Urea Nitrogen 16 mg/dL (7-17); Calcium 8.5 mg/dL (8.4-10.2); Carbon Dioxide 26 mmol/L (22-30); Chloride 107 mmol/L (98-107); Globulin 2.4 g/dL; Glucose 161 mg/dL (74-99); Non-African American GFR(CKD) 75 (>60 ml/min/1.73 sqM); Potassium 4.4 mmol/L (3.5-5.1); Sodium 137 mmol/L (137-145); Total Bilirubin 0.3 mg/dL (0.2-1.3); Total Protein 5.8 g/dL (6.3-8.2)
[2022-05-11 06:56] LABS: Glucose,Whole Blood 180 mg/dL (70-110)
[2022-05-11] MEDS: FLUTICASONE 50MCG/SPRAY NASAL 16GM EA NOSTRIL SCH (07:49)
[2022-05-11] MEDS: INSULIN ASPART (NovoLOG) 100 UNIT/ML VIAL SQ SCH ×4 (07:56→22:08)
[2022-05-11] MEDS: HYDROmorphone 1 MG/ML 1 ML SYRINGE IVP PRN ×3 (08:10→19:25)
[2022-05-11 09:01] LABS: Basophils # (A) 0.02 X 10*3/uL (0.00-0.10); Basophils % (A) 0.7 %; Eosinophils # (A) 0.15 X 10*3/uL (0.04-0.35); Eosinophils % (A) 5.2 %; HCT 26.1 % (37.2-46.3); HGB 8.2 g/dL (12.0-15.0); Immature Grans, Automated 0.7 %; Lymphocytes # (A) 0.61 X 10*3/uL (0.90-5.00); MCH 27.3 pg (27.0-32.0); MCHC 31.4 g/dL (32.0-37.0); Mean Platelet Volume 9.6 fL (9.5-12.2); Monocytes # (A) 0.31 X 10*3/uL (0.20-1.00); Monocytes % (A) 10.7 %; NRBC Per 100 WBC 0 /100 WBCS (0.0-0.0); Neutrophils # (A) 1.79 X 10*3/uL (1.80-7.70); Neutrophils % (A) 61.7 %; Platelet Count 206 X 10*3/uL (140-440); RDW 14.6 % (11.5-14.5)
[2022-05-11 09:22] LABS: INR 1.1 (0.90-1.11); Prothrombin Time 12.4 sec (9.9-11.9)
--- NOTE | 2022-05-11 10:21 | P.PN ---
Subjective Progress Note Date: 05/11/22 This is a 62-year-old female patient who presented for an elective left knee arthroplasty with complex removal of prosthetic, fabrication insertion of nonbiodegradable drug delivery implant and irrigation and debridement of subcutaneous tissue muscle and bone and thigh. Patient has a complex medical history including chronic joint infection, coronary artery disease, aortic valve replacement which is maintained on Coumadin. Coumadin has been held since last Saturday. Patient was recently treated with IV antibiotics for bacteremia. Additional medical history includes diabetes mellitus type 2, GERD, hiatal retention, sleep apnea and thyroid disorder. Per orthopedic service is patient tender weight-bear as tolerated to left leg is okay to resume Coumadin for DVT prophylaxis. Patient will need PICC line in the antibiotics for 6 weeks infectious disease services have been consulted. PICC line has been ordered. CBC CMP and INR has been ordered. Pharmacy to dose Coumadin for mechanical valve. At this time patient is sitting comfortably in chair. Patient has been up ambulating with physical therapy. Patient denies chest pain or shortness breath. Patient denies nausea vomiting or diarrhea. Patient denies any urinary burning or frequency On 05/11/2022 patient is alert and oriented 3. Patient remains on IV Vanco and cefepime. PICC line is in place awaiting infectious disease input in regards to home IV antibiotics. Awaiting final cultures. Oncology service is CONSULTED for anemia. Awaiting input. Hemoglobin today 8.2. At this time patient denies chest pain or shortness of breath. Patient denies nausea vomiting or diarrhea. Patient denies any urinary burning or frequency. Wound VAC is in place. INR remains low at 1.10. Patient remains on bridging of Lovenox. Pharmacy to dose Coumadin Objective - Vital Signs Vital signs: Vital Signs Temp 98.4 F 05/11/22 07:34 Pulse 73 05/11/22 07:34 Resp 17 05/11/22 07:34 BP 126/81 05/11/22 07:34 Pulse Ox 92 L 05/11/22 08:38 FiO2 Intake & Output 05/10/22 05/11/22 05/11/22 18:59 06:59 18:59 Intake Total 888 Output Total 5 20 10 Balance 883 -20 -10 Intake: Oral 888 Output: Drainage 5 20 10 Left Knee 5 20 10 Other: Voiding Method Toilet Toilet # Voids 2 - Exam Head normocephalic Neck supple Lungs clear to auscultation bilaterally no wheezing or crackles Heart regular rate and rhythm S1-S2, no rub or gallop Abdomen is soft nontender nondistended positive bowel sounds no hepatosplenomegaly Extremities no edema left knee dressing clean dry and intact Neuro alert and orientated to 3 - Labs CBC & Chem 7: 05/11/22 05:01 05/11/22 05:01 Labs: Abnormal Lab Results - Last 24 Hours (Table) 05/10/22 05/10/22 05/10/22 Range/Units 11:55 17:04 19:23 WBC (4.50-10.00) X 10*3/uL RBC (4.10-5.20) X 10*6/uL Hgb (12.0-15.0) g/dL Hct (37.2-46.3) % MCHC (32.0-37.0) g/dL RDW (11.5-14.5) % Neutrophils # (1.80-7.70) X 10*3/uL Lymphocytes # (0.90-5.00) X 10*3/uL ESR 41 H (0-20) mm/hr Retic Count 3.0 H (0.5-2.0) % PT (9.9-11.9) sec Glucose (74-99) mg/dL POC Glucose (mg/dL) 166 H 164 H (70-110) mg/dL Iron (50-170) ug/dL % Saturation (12.00-45.00) Total Protein (6.3-8.2) g/dL Total Protein (PEP) (6.2-8.2) g/dL Albumin (3.5-5.0) g/dL 05/10/22 05/10/22 05/10/22 Range/Units 19:23 19:23 20:30 WBC (4.50-10.00) X 10*3/uL RBC (4.10-5.20) X 10*6/uL Hgb (12.0-15.0) g/dL Hct (37.2-46.3) % MCHC (32.0-37.0) g/dL RDW (11.5-14.5) % Neutrophils # (1.80-7.70) X 10*3/uL Lymphocytes # (0.90-5.00) X 10*3/uL ESR (0-20) mm/hr Retic Count (0.5-2.0) % PT (9.9-11.9) sec Glucose (74-99) mg/dL POC Glucose (mg/dL) 213 H (70-110) mg/dL Iron 37 L (50-170) ug/dL % Saturation 11.09 L (12.00-45.00) Total Protein (6.3-8.2) g/dL Total Protein (PEP) 6.0 L (6.2-8.2) g/dL Albumin (3.5-5.0) g/dL 05/11/22 05/11/22 05/11/22 Range/Units 05:01 05:01 05:01 WBC 2.90 L (4.50-10.00) X 10*3/uL RBC 3.00 L (4.10-5.20) X 10*6/uL Hgb 8.2 L (12.0-15.0) g/dL Hct 26.1 L (37.2-46.3) % MCHC 31.4 L (32.0-37.0) g/dL RDW 14.6 H (11.5-14.5) % Neutrophils # 1.79 L (1.80-7.70) X 10*3/uL Lymphocytes # 0.61 L (0.90-5.00) X 10*3/uL ESR (0-20) mm/hr Retic Count (0.5-2.0) % PT 12.4 H (9.9-11.9) sec Glucose 161 H (74-99) mg/dL POC Glucose (mg/dL) (70-110) mg/dL Iron (50-170) ug/dL % Saturation (12.00-45.00) Total Protein 5.8 L (6.3-8.2) g/dL Total Protein (PEP) (6.2-8.2) g/dL Albumin 3.4 L (3.5-5.0) g/dL 05/11/22 Range/Units 06:54 WBC (4.50-10.00) X 10*3/uL RBC (4.10-5.20) X 10*6/uL Hgb (12.0-15.0) g/dL Hct (37.2-46.3) % MCHC (32.0-37.0) g/dL RDW (11.5-14.5) % Neutrophils # (1.80-7.70) X 10*3/uL Lymphocytes # (0.90-5.00) X 10*3/uL ESR (0-20) mm/hr Retic Count (0.5-2.0) % PT (9.9-11.9) sec Glucose (74-99) mg/dL POC Glucose (mg/dL) 180 H (70-110) mg/dL Iron (50-170) ug/dL % Saturation (12.00-45.00) Total Protein (6.3-8.2) g/dL Total Protein (PEP) (6.2-8.2) g/dL Albumin (3.5-5.0) g/dL Microbiology - Last 24 Hours (Table) 05/08/22 16:25 Gram Stain - Preliminary Knee - Left Tissue Culture - Preliminary 05/08/22 16:25 Gram Stain - Preliminary Knee - Left Tissue Culture - Preliminary 05/08/22 16:25 Gram Stain - Preliminary Synovial Fluid Body Fluid Culture - Preliminary Assessment and Plan Assessment: 1. S/P elective left knee arthroplasty with complex removal of prosthetic, fabrication insertion of nonbiodegradable drug delivery implant and irrigation and debridement of subcutaneous tissue muscle and bone and thigh. 2. History of chronic joint infection with prostatic 3. Recent Bacteremia with IV antibiotics. 4. History of aortic valve replacement with mechanical valve. Patient's Coumadin has been on hold. Okay to resume per orthopedic services 5. History of insulin-dependent diabetes mellitus type 2 6. History of essential hypertension 7. History of hyperlipidemia 8. History of hypothyroidism 9. History of bipolar disorder and schizoaffective disorder Thank you for this consultation we will continue to follow patient closely Pharmacy to dose Coumadin resumed She currently getting bridged with Lovenox CBC, CMP and PT/INR ordered Patient will need 6 weeks of IV antibiotics PICC line in place Infectious disease service is consulted
[2022-05-11 11:13] LABS: Free Kappa Lt Chain Qnt, Serum 1.83 mg/dL (0.33-1.94); Free Lambda Lt Chain Qnt, Seru 1.83 mg/dL (0.57-2.63)
[2022-05-11 11:29] LABS: Glucose,Whole Blood 142 mg/dL (70-110)
--- NOTE | 2022-05-11 12:05 | P.PN ---
Subjective Progress Note Date: 05/10/22 This is a 62-year-old female patient who presented for an elective left knee arthroplasty with complex removal of prosthetic, fabrication insertion of nonbiodegradable drug delivery implant and irrigation and debridement of subcutaneous tissue muscle and bone and thigh. Patient has a complex medical history including chronic joint infection, coronary artery disease, aortic valve replacement which is maintained on Coumadin. Coumadin has been held since last Saturday. Patient was recently treated with IV antibiotics for bacteremia. Additional medical history includes diabetes mellitus type 2, GERD, hiatal retention, sleep apnea and thyroid disorder. Per orthopedic service is patient tender weight-bear as tolerated to left leg is okay to resume Coumadin for DVT prophylaxis. Patient will need PICC line in the antibiotics for 6 weeks infectious disease services have been consulted. PICC line has been ordered. CBC CMP and INR has been ordered. Pharmacy to dose Coumadin for mechanical valve. At this time patient is sitting comfortably in chair. Patient has been up ambulating with physical therapy. Patient denies chest pain or shortness breath. Patient denies nausea vomiting or diarrhea. Patient denies any urinary burning or frequency On 05/10/2022 patient was seen and examined on the medical floor, she is alert and oriented 3. Patient remains on IV Vanco and cefepime. PICC line is in place awaiting infectious disease input in regards to home IV antibiotics. Awaiting final cultures. Oncology service is CONSULTED for anemia. Awaiting input. Hemoglobin today 8.2. At this time patient denies chest pain or shortness of breath. Patient denies nausea vomiting or diarrhea. Patient denies any urinary burning or frequency. Wound VAC is in place. INR remains low at 0.98. Patient remains on bridging of Lovenox. Pharmacy to dose Coumadin Objective - Vital Signs Vital signs: Vital Signs Temp 98.1 F 05/10/22 07:27 Pulse 66 05/10/22 07:27 Resp 17 05/10/22 07:27 BP 101/64 05/10/22 07:27 Pulse Ox 92 L 05/10/22 08:43 FiO2 Intake & Output 05/09/22 05/10/22 05/10/22 18:59 06:59 18:59 Intake Total 1080 296 Output Total 40 Balance 1040 296 Intake: Oral 1080 296 Output: Drainage 40 Left Knee 40 Other: Voiding Method Toilet # Voids 3 1 - Exam Head normocephalic Neck supple Lungs clear to auscultation bilaterally no wheezing or crackles Heart regular rate and rhythm S1-S2, no rub or gallop Abdomen is soft nontender nondistended positive bowel sounds no hepatosplenomegaly Extremities no edema left knee dressing clean dry and intact Neuro alert and orientated to 3 - Labs CBC & Chem 7: 05/11/22 05:01 05/11/22 05:01 Labs: Abnormal Lab Results - Last 24 Hours (Table) 05/09/22 05/09/22 05/09/22 Range/Units 04:57 11:28 16:43 WBC (4.50-10.00) X 10*3/uL RBC (4.10-5.20) X 10*6/uL Hgb (12.0-15.0) g/dL Hct (37.2-46.3) % RDW (11.5-14.5) % MPV (9.5-12.2) fL Lymphocytes # (0.90-5.00) X 10*3/uL Anion Gap (10.00-18.00) mmol/L BUN/Creatinine Ratio (12.00-20.00) Ratio Glucose (70-110) mg/dL POC Glucose (mg/dL) 225 H 159 H (75-99) mg/dL Hemoglobin A1c 6.7 H (0.0-6.0) % Total Bilirubin (0.30-1.20) mg/dL Total Protein (6.2-8.2) g/dL 05/09/22 05/10/22 05/10/22 Range/Units 21:00 05:44 05:44 WBC 4.04 L (4.50-10.00) X 10*3/uL RBC 3.21 L (4.10-5.20) X 10*6/uL Hgb 8.9 L (12.0-15.0) g/dL Hct 27.7 L (37.2-46.3) % RDW 14.6 H (11.5-14.5) % MPV 9.2 L (9.5-12.2) fL Lymphocytes # 0.78 L (0.90-5.00) X 10*3/uL Anion Gap 7.30 L (10.00-18.00) mmol/L BUN/Creatinine Ratio 21.00 H (12.00-20.00) Ratio Glucose 195 H (70-110) mg/dL POC Glucose (mg/dL) 198 H (75-99) mg/dL Hemoglobin A1c (0.0-6.0) % Total Bilirubin 0.20 L (0.30-1.20) mg/dL Total Protein 6.1 L (6.2-8.2) g/dL 05/10/22 Range/Units 06:54 WBC (4.50-10.00) X 10*3/uL RBC (4.10-5.20) X 10*6/uL Hgb (12.0-15.0) g/dL Hct (37.2-46.3) % RDW (11.5-14.5) % MPV (9.5-12.2) fL Lymphocytes # (0.90-5.00) X 10*3/uL Anion Gap (10.00-18.00) mmol/L BUN/Creatinine Ratio (12.00-20.00) Ratio Glucose (70-110) mg/dL POC Glucose (mg/dL) 193 H (75-99) mg/dL Hemoglobin A1c (0.0-6.0) % Total Bilirubin (0.30-1.20) mg/dL Total Protein (6.2-8.2) g/dL Microbiology - Last 24 Hours (Table) 05/08/22 16:25 Gram Stain - Preliminary Knee - Left Tissue Culture - Preliminary 05/08/22 16:25 Gram Stain - Preliminary Knee - Left Tissue Culture - Preliminary 05/08/22 16:25 Gram Stain - Preliminary Synovial Fluid Body Fluid Culture - Preliminary Assessment and Plan Assessment: 1. S/P elective left knee arthroplasty with complex removal of prosthetic, fabrication insertion of nonbiodegradable drug delivery implant and irrigation and debridement of subcutaneous tissue muscle and bone and thigh. 2. History of chronic joint infection with prostatic 3. Recent Bacteremia with IV antibiotics. 4. History of aortic valve replacement with mechanical valve. Patient's Coumadin has been on hold. Okay to resume per orthopedic services 5. History of insulin-dependent diabetes mellitus type 2 6. History of essential hypertension 7. History of hyperlipidemia 8. History of hypothyroidism 9. History of bipolar disorder and schizoaffective disorder Thank you for this consultation we will continue to follow patient closely Pharmacy to dose Coumadin resumed CBC, CMP and PT/INR ordered PICC line ordered per orthopedic recommendation. Patient will need 6 weeks of IV antibiotics Infectious disease service is consulted
[2022-05-11] MEDS: ENOXAPARIN 100 MG/ML SYRINGE SQ SCH ×2 (12:10→22:08)
[2022-05-11] MEDS: LACTATED RINGERS 1,000 ML IV SCH (13:36)
[2022-05-11 14:15] LABS: Albumin 3.59 g/dL (3.80-4.90); Gamma Globulin 0.77 g/dL (0.70-1.50)
--- NOTE | 2022-05-11 15:25 | P.CONS ---
History of Present Illness - Reason for Consult Consult date: 05/11/22 Anemia Requesting physician: Felisa Romo - History of Present Illness Mrs. Isaac is a 62 year old female who we have been asked to see regarding anemia. She has had multiple issues since undergoing total left knee replacement 2 years ago. Per ortho note she had failed to follow-up as originally instructed and when she did in November of this year she presented with increased pain and changes noted on xray. She was found with bacteremia requiring hospital admission and IV antibiotics, post bacteremia hospitalization she represented to ortho with swelling and large amount of WBCs were aspirated at that time, she was also noted to have increased inflammatory markers. She was re-admitted to undergo debridement of this knee secondary to her chronic periprosthetic joint infection. Over this time her hemoglobin has trendied down and her primary team has asked us to further evaluate. Review of Systems All systems: negative Constitutional: Reports as per HPI Past Medical History Past Medical History: Diabetes Mellitus, GERD/Reflux, Hyperlipidemia, Hype rtension, Pneumonia, Sleep Apnea/CPAP/BIPAP, Thyroid Disorder Additional Past Medical History / Comment(s): IDDM type II, neuropathy bilateral feet, rheumatic fever at age 11yrs/scar tissue on valve, aortic valve replacement (mechanical), pt states she had a blood clot around aortic valve prior to surgery, POLLO but does not tolerate Cpap, constipation, L ovarian cyst, hypoth yroid., states infection left knee. History of Any Multi-Drug Resistant Organisms: None Reported Year Discovered:: 2013 Past Surgical History: Appendectomy, Cardiac Valve Replacement, Section, Joint Replacement, Orthopedic Surgery Additional Past Surgical History / Comment(s): BLANCA, aortic valve replacement (mechanical), L total knee arthroplasty, L foot bunionectomy, EGDs, colonoscopy. Past Anesthesia/Blood Transfusion Reactions: Previous Problems w/ Anesthesia Additional Past Anesthesia/Blood Transfusion Reaction / Comm: Stopped breathing when a EGD was done Past Psychological History: Anxiety, Bipolar Additional Psychological History / Comment(s): Pt resides with her 2 children ag es 15 and 19 yrs. She uses a cane to ambulate and occasionally a walker. 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 Smoking Status: Never smoker Past Alcohol Use History: None Reported Additional Past Alcohol Use History / Comment(s): . Past Drug Use History: None Reported - Past Family History Father Additional Family Medical History / Comment(s): Bipolar and ETOH abuse. Mother Additional Family Medical History / Comment(s): ETOH abuse. Medications and Allergies Home Medications Medication Instructions Recorded Confirmed Type Metoprolol Succinate (ER) [Toprol 100 mg PO PC-SUPPER 02/02/21 05/07/22 History XL] OLANZapine [ZyPREXA] 20 mg PO HS 02/02/21 05/07/22 History Venlafaxine HCl [Effexor XR] 300 mg PO PC-SUPPER 02/02/21 05/07/22 History clonazePAM 1 mg PO HS 02/02/21 05/07/22 History lisinopriL [Zestril] 5 mg PO PC-SUPPER 02/02/21 05/07/22 History Empagliflozin [Jardiance] 10 mg PO DAILY 09/19/21 05/07/22 History traMADol HCL 100 mg PO TID PRN 01/17/22 05/08/22 History Insulin Aspart [NovoLOG Flexpen] 25 units SQ AC-TID 03/02/22 05/07/22 History Acetaminophen Tab [Tylenol] 650 mg PO Q6HR PRN tab 03/12/22 05/07/22 Rx Albuterol Inhaler [Ventolin Hfa 1 puff INHALATION RT-QID PRN 30 03/12/22 05/07/22 Rx Inhaler] Days #8 gm Fluticasone Nasal [place] [Flonase 2 spray EA NOSTRIL DAILY 30 Days 03/12/22 05/07/22 Rx Nasal [place]] #1 gm Warfarin [Coumadin] 10 mg PO DAILY 30 Days #30 tab 03/12/22 05/07/22 Rx Levothyroxine Sodium 112 mg PO PC-SUPPER 04/24/22 05/07/22 History metFORMIN HCL [Glucophage] 100 mg PO PC-SUPPER 04/24/22 05/07/22 History clonazePAM 1 mg PO DAILY PRN 05/01/22 05/07/22 History Insulin Glargine,Hum.rec.anlog 25 unit SQ W/SUPPER 05/07/22 05/07/22 History [Basaglar Kwikpen U-100] Cephalexin [Keflex] 500 mg PO Q8HR 05/08/22 05/08/22 History oxyCODONE HCL/ACETAMINOPHEN 1 tab PO Q6HR PRN 7 Days #20 tab 05/11/22 Rx [Percocet 5-325 mg] Allergies Allergy/AdvReac Type Severity Reaction Status Date / Time lactose Allergy Unknown Diarrhea Verified 05/08/22 13:53 codeine AdvReac UPSET Verified 05/08/22 13:53 STOMACH Physical Exam Vitals: Vital Signs Temp Pulse Resp BP BP Pulse Ox 05/10/22 14:00 98.3 F 73 16 133/86 97 05/10/22 08:43 92 L 05/10/22 07:27 98.1 F 66 17 101/64 92 L 05/10/22 01:49 97.8 F 75 20 118/69 96 05/09/22 19:15 98.2 F 74 20 154/82 98 Intake and Output 05/10/22 05/10/22 05/10/22 06:59 14:59 22:59 Intake Total 592 296 Output Total 5 Balance 592 291 Intake: Oral 592 296 Output: Drainage 5 Left Knee 5 Other: Voiding Method Toilet # Voids 1 2 - Constitutional General appearance: cooperative, no acute distress - EENT Eyes: EOMI ENT: hearing grossly normal - Neck Neck: normal ROM - Respiratory Respiratory: bilateral: diminished - Cardiovascular Rhythm: regularly irregular - Gastrointestinal General gastrointestinal: normal bowel sounds - Integumentary Integumentary: pale - Musculoskeletal Musculoskeletal: strength equal bilaterally - Psychiatric Psychiatric: A&O x's 3 Results CBC & Chem 7: 05/11/22 05:01 05/11/22 05:01 Labs: Abnormal Lab Results - Last 24 Hours (Table) 05/09/22 05/10/22 05/10/22 Range/Units 21:00 05:44 05:44 WBC 4.04 L (4.50-10.00) X 10*3/uL RBC 3.21 L (4.10-5.20) X 10*6/uL Hgb 8.9 L (12.0-15.0) g/dL Hct 27.7 L (37.2-46.3) % RDW 14.6 H (11.5-14.5) % MPV 9.2 L (9.5-12.2) fL Lymphocytes # 0.78 L (0.90-5.00) X 10*3/uL Anion Gap 7.30 L (10.00-18.00) mmol/L BUN/Creatinine Ratio 21.00 H (12.00-20.00) Ratio Glucose 195 H (70-110) mg/dL POC Glucose (mg/dL) 198 H (70-110) mg/dL Total Bilirubin 0.20 L (0.30-1.20) mg/dL Total Protein 6.1 L (6.2-8.2) g/dL 05/10/22 05/10/22 05/10/22 Range/Units 06:54 11:55 17:04 WBC (4.50-10.00) X 10*3/uL RBC (4.10-5.20) X 10*6/uL Hgb (12.0-15.0) g/dL Hct (37.2-46.3) % RDW (11.5-14.5) % MPV (9.5-12.2) fL Lymphocytes # (0.90-5.00) X 10*3/uL Anion Gap (10.00-18.00) mmol/L BUN/Creatinine Ratio (12.00-20.00) Ratio Glucose (70-110) mg/dL POC Glucose (mg/dL) 193 H 166 H 164 H (70-110) mg/dL Total Bilirubin (0.30-1.20) mg/dL Total Protein (6.2-8.2) g/dL Microbiology - Last 24 Hours (Table) 05/08/22 16:25 Gram Stain - Preliminary Knee - Left Tissue Culture - Preliminary 05/08/22 16:25 Gram Stain - Preliminary Knee - Left Tissue Culture - Preliminary 05/08/22 16:25 Gram Stain - Preliminary Synovial Fluid Body Fluid Culture - Preliminary Assessment and Plan (1) Normocytic anemia Narrative/Plan: This is most likely secondary to the acute on chronic inflammation resulting in multiple antibiotics and bone marrow supporession. This should recover once the underlying condition is resolved. Additional work-up to assess for other underlying causes has been ordered Iron studies do show evidence of iron deficiency - GI work-up She states she did have one day of vaginal bleeding, however has not returned, not 100% if potential hemorroidal Current Visit: Yes Status: Acute Code(s): D64.9 - ANEMIA, UNSPECIFIED SNOMED Code(s): 484025718 (2) Leukopenia Current Visit: Yes Status: Acute Code(s): D72.819 - DECREASED WHITE BLOOD CELL COUNT, UNSPECIFIED SNOMED Code(s): 54174479 (3) Prosthetic joint infection Current Visit: Yes Status: Acute Code(s): T84.50XA - INFECT/INFLM REACTION DUE TO UNSP INT JOINT PROSTH, INIT SNOMED Code(s): 128585012 (4) Bacteremia Current Visit: No Status: Acute Code(s): R78.81 - BACTEREMIA SNOMED Code(s): 0094125
[2022-05-11 16:59] LABS: Glucose,Whole Blood 165 mg/dL (70-110)
[2022-05-11] MEDS: lisinopriL 5 MG TAB PO SCH (17:30)
[2022-05-11] MEDS: LEVOTHYROXINE 112 MCG TAB PO SCH (17:30)
[2022-05-11] MEDS: VENLAFAXINE HCL ER 150 MG CAP PO SCH (17:30)
[2022-05-11] MEDS: METOPROLOL SUCCINATE (ER) 100 MG TAB.ER.24H PO SCH (17:30)
[2022-05-11] MEDS ORDERED: WARFARIN 10 MG TAB PO ONE (18:00)
--- NOTE | 2022-05-11 18:23 | P.PN ---
Subjective Progress Note Date: 05/11/22 This patient is a 62- year old female who is status-post removal of prosthesis left knee TKA, I&D, and insertion of articulating spacer on 05/08/22. Today is post-operative day #3. Patient is examined bedside today with Dr. Gonzalez. She states her pain is well-controlled. She is ambulating with a walker without issue. She denies fevers, chills. Vital signs stable. Objective - Vital Signs Vital signs: Vital Signs Temp 98.4 F 05/11/22 07:34 Pulse 80 05/11/22 14:00 Resp 18 05/11/22 14:00 BP 158/93 05/11/22 14:00 Pulse Ox 98 05/11/22 14:00 FiO2 Intake & Output 05/10/22 05/11/22 05/11/22 18:59 06:59 18:59 Intake Total 888 Output Total 5 20 10 Balance 883 -20 -10 Intake: Oral 888 Output: Drainage 5 20 10 Left Knee 5 20 10 Other: Voiding Method Toilet Toilet # Voids 2 - Exam On examination, patient is sitting up in bed in no apparent distress. She is alert and orientated x3. On inspection of the left knee, there is mild swelling. Tripp wrap, Prevena wound vac in place with good seal. Hemovac drain pulled today. Motor and sensory function intact LLE. The LLE is warm and well perfused. - Labs CBC & Chem 7: 05/11/22 05:01 05/11/22 05:01 Labs: Abnormal Lab Results - Last 24 Hours (Table) 05/10/22 05/10/22 05/10/22 Range/Units 19:23 19:23 19:23 WBC (4.50-10.00) X 10*3/uL RBC (4.10-5.20) X 10*6/uL Hgb (12.0-15.0) g/dL Hct (37.2-46.3) % MCHC (32.0-37.0) g/dL RDW (11.5-14.5) % Neutrophils # (1.80-7.70) X 10*3/uL Lymphocytes # (0.90-5.00) X 10*3/uL ESR 41 H (0-20) mm/hr Retic Count 3.0 H (0.5-2.0) % PT (9.9-11.9) sec Glucose (74-99) mg/dL POC Glucose (mg/dL) (70-110) mg/dL Iron 37 L (50-170) ug/dL % Saturation 11.09 L (12.00-45.00) Total Protein (6.3-8.2) g/dL Total Protein (PEP) 6.0 L (6.2-8.2) g/dL Albumin (3.5-5.0) g/dL Albumin (PEP) 3.59 L (3.80-4.90) g/dL Jiaoz-0-Jctgdegon 0.47 L (0.60-1.00) g/dL 05/10/22 05/11/22 05/11/22 Range/Units 20:30 05:01 05:01 WBC 2.90 L (4.50-10.00) X 10*3/uL RBC 3.00 L (4.10-5.20) X 10*6/uL Hgb 8.2 L (12.0-15.0) g/dL Hct 26.1 L (37.2-46.3) % MCHC 31.4 L (32.0-37.0) g/dL RDW 14.6 H (11.5-14.5) % Neutrophils # 1.79 L (1.80-7.70) X 10*3/uL Lymphocytes # 0.61 L (0.90-5.00) X 10*3/uL ESR (0-20) mm/hr Retic Count (0.5-2.0) % PT (9.9-11.9) sec Glucose 161 H (74-99) mg/dL POC Glucose (mg/dL) 213 H (70-110) mg/dL Iron (50-170) ug/dL % Saturation (12.00-45.00) Total Protein 5.8 L (6.3-8.2) g/dL Total Protein (PEP) (6.2-8.2) g/dL Albumin 3.4 L (3.5-5.0) g/dL Albumin (PEP) (3.80-4.90) g/dL Swztk-4-Llftwhjth (0.60-1.00) g/dL 05/11/22 05/11/22 05/11/22 Range/Units 05:01 06:54 11:27 WBC (4.50-10.00) X 10*3/uL RBC (4.10-5.20) X 10*6/uL Hgb (12.0-15.0) g/dL Hct (37.2-46.3) % MCHC (32.0-37.0) g/dL RDW (11.5-14.5) % Neutrophils # (1.80-7.70) X 10*3/uL Lymphocytes # (0.90-5.00) X 10*3/uL ESR (0-20) mm/hr Retic Count (0.5-2.0) % PT 12.4 H (9.9-11.9) sec Glucose (74-99) mg/dL POC Glucose (mg/dL) 180 H 142 H (70-110) mg/dL Iron (50-170) ug/dL % Saturation (12.00-45.00) Total Protein (6.3-8.2) g/dL Total Protein (PEP) (6.2-8.2) g/dL Albumin (3.5-5.0) g/dL Albumin (PEP) (3.80-4.90) g/dL Hnbju-0-Amnmtcpdl (0.60-1.00) g/dL 05/11/22 Range/Units 16:58 WBC (4.50-10.00) X 10*3/uL RBC (4.10-5.20) X 10*6/uL Hgb (12.0-15.0) g/dL Hct (37.2-46.3) % MCHC (32.0-37.0) g/dL RDW (11.5-14.5) % Neutrophils # (1.80-7.70) X 10*3/uL Lymphocytes # (0.90-5.00) X 10*3/uL ESR (0-20) mm/hr Retic Count (0.5-2.0) % PT (9.9-11.9) sec Glucose (74-99) mg/dL POC Glucose (mg/dL) 165 H (70-110) mg/dL Iron (50-170) ug/dL % Saturation (12.00-45.00) Total Protein (6.3-8.2) g/dL Total Protein (PEP) (6.2-8.2) g/dL Albumin (3.5-5.0) g/dL Albumin (PEP) (3.80-4.90) g/dL Zghzj-6-Fosmjkpic (0.60-1.00) g/dL Microbiology - Last 24 Hours (Table) 05/08/22 16:25 Anaerobic Culture - Preliminary Synovial Fluid 05/08/22 16:25 Gram Stain - Preliminary Synovial Fluid Body Fluid Culture - Preliminary 05/08/22 16:25 Gram Stain - Preliminary Knee - Left Tissue Culture - Preliminary 05/08/22 16:25 Gram Stain - Preliminary Knee - Left Tissue Culture - Preliminary Assessment and Plan Assessment: Status-post removal of prosthesis left knee TKA, I&D, and insertion of articula ting spacer on 05/08/22. Post-operative day #3. Plan: - Weight bear as tolerated on operative extremity with a walker. - Physical therapy for gait and balance training. - Pain management as needed. - IV antibiotics per infectious disease. PICC line placed 05/09. Will follow intra-op cultures. - DVT prophylaxis per internal medicine. Patient takes Coumadin. - Leave prevena wound vac in place. Hemovac drain removed today. - Anticipate discharge home when cleared from internal medicine and infectious disease. She will need to follow-up in the office on Saturday05/15/22 for wound vac removal.
[2022-05-11] MEDS: VANCOMYCIN 1,500 MG in SODIUM CHLORIDE 0.9% 250 ML IVPB SCH (18:26)
[2022-05-11 20:40] LABS: Glucose,Whole Blood 156 mg/dL (70-110)
[2022-05-11] MEDS: SENNOSIDES-DOCUSATE SODIUM 1 EACH TAB PO SCH (22:08)
[2022-05-11] MEDS: clonazePAM 1 MG TAB PO SCH (22:09)
[2022-05-11] MEDS: OLANZapine 10 MG TAB PO SCH (22:17)
--- NOTE | 2022-05-11 22:47 | P.PN ---
Subjective Progress Note Date: 05/10/22 Principal diagnosis: Left knee septic arthritis Patient is 62 year old female, recently admitted to this facility treated for MSSA bacteremia thought to be related to the right diabetic foot infection, patient did have echocardiogram that was negative as well as BLANCA and also have aspirate from the left ear which was negative, patient subsequently has been admitted to the hospital concerning for left knee infection status post excisional arthroplasty and antibiotic spacer placement. On today's evaluation that is 05/10/2022, patient is afebrile patient still complaining of pain to the left knee area but no worsening patient denies having any chest pain or shortness of breath or cough no abdominal pain or diarrhea Objective - Vital Signs Vital signs: Vital Signs Temp 98.3 F 05/10/22 14:00 Pulse 73 05/10/22 14:00 Resp 16 05/10/22 14:00 BP 133/86 05/10/22 14:00 Pulse Ox 97 05/10/22 14:00 FiO2 Intake & Output 05/09/22 05/10/22 05/10/22 18:59 06:59 18:59 Intake Total 1080 592 Output Total 40 Balance 1040 592 Intake: Oral 1080 592 Output: Drainage 40 Left Knee 40 Other: Voiding Method Toilet # Voids 3 1 - Exam GENERAL DESCRIPTION: Middle-aged female lying in bed in no distress RESPIRATORY SYSTEM: Unlabored breathing , decreased breath sounds at bases HEART: S1 S2 regular rate and rhythm , ABDOMEN: Soft , no tenderness EXTREMITIES: Left knee is currently dressed no drainage on the dressing - Labs CBC & Chem 7: 05/11/22 05:01 05/11/22 05:01 Labs: Abnormal Lab Results - Last 24 Hours (Table) 05/09/22 05/09/22 05/09/22 Range/Units 04:57 16:43 21:00 WBC (4.50-10.00) X 10*3/uL RBC (4.10-5.20) X 10*6/uL Hgb (12.0-15.0) g/dL Hct (37.2-46.3) % RDW (11.5-14.5) % MPV (9.5-12.2) fL Lymphocytes # (0.90-5.00) X 10*3/uL Anion Gap (10.00-18.00) mmol/L BUN/Creatinine Ratio (12.00-20.00) Ratio Glucose (70-110) mg/dL POC Glucose (mg/dL) 159 H 198 H (70-110) mg/dL Hemoglobin A1c 6.7 H (0.0-6.0) % Total Bilirubin (0.30-1.20) mg/dL Total Protein (6.2-8.2) g/dL 05/10/22 05/10/22 05/10/22 Range/Units 05:44 05:44 06:54 WBC 4.04 L (4.50-10.00) X 10*3/uL RBC 3.21 L (4.10-5.20) X 10*6/uL Hgb 8.9 L (12.0-15.0) g/dL Hct 27.7 L (37.2-46.3) % RDW 14.6 H (11.5-14.5) % MPV 9.2 L (9.5-12.2) fL Lymphocytes # 0.78 L (0.90-5.00) X 10*3/uL Anion Gap 7.30 L (10.00-18.00) mmol/L BUN/Creatinine Ratio 21.00 H (12.00-20.00) Ratio Glucose 195 H (70-110) mg/dL POC Glucose (mg/dL) 193 H (70-110) mg/dL Hemoglobin A1c (0.0-6.0) % Total Bilirubin 0.20 L (0.30-1.20) mg/dL Total Protein 6.1 L (6.2-8.2) g/dL 05/10/22 Range/Units 11:55 WBC (4.50-10.00) X 10*3/uL RBC (4.10-5.20) X 10*6/uL Hgb (12.0-15.0) g/dL Hct (37.2-46.3) % RDW (11.5-14.5) % MPV (9.5-12.2) fL Lymphocytes # (0.90-5.00) X 10*3/uL Anion Gap (10.00-18.00) mmol/L BUN/Creatinine Ratio (12.00-20.00) Ratio Glucose (70-110) mg/dL POC Glucose (mg/dL) 166 H (70-110) mg/dL Hemoglobin A1c (0.0-6.0) % Total Bilirubin (0.30-1.20) mg/dL Total Protein (6.2-8.2) g/dL Microbiology - Last 24 Hours (Table) 05/08/22 16:25 Gram Stain - Preliminary Synovial Fluid Body Fluid Culture - Preliminary 05/08/22 16:25 Gram Stain - Preliminary Knee - Left Tissue Culture - Preliminary 05/08/22 16:25 Gram Stain - Preliminary Knee - Left Tissue Culture - Preliminary Assessment and Plan (1) Status post total left knee replacement Current Visit: No Status: Acute Code(s): Z96.652 - PRESENCE OF LEFT ARTIFICIAL KNEE JOINT SNOMED Code(s): 8727804479857 Plan: 1patient presented to hospital with a chronic pain to the left knee area and this patient recently did have a history of MSSA bacteremia however at that point aspirate of the left knee was negative patient was status post excisional arthroplasty and placement of a left knee implant with operative cultures currently pending. 2sed rate of 41 and blood cultures so far negative. 3 left knee cultures are currently pending. 4patient to continue with vancomycin and cefepime combination while waiting for the culture to finalize Time with Patient: Less than 30
--- NOTE | 2022-05-11 22:49 | P.PN ---
Subjective Progress Note Date: 05/11/22 Principal diagnosis: Left knee septic arthritis Patient is 62 year old female, recently admitted to this facility treated for MSSA bacteremia thought to be related to the right diabetic foot infection, patient did have echocardiogram that was negative as well as BLANCA and also have aspirate from the left ear which was negative, patient subsequently has been admitted to the hospital concerning for left knee infection status post excisional arthroplasty and antibiotic spacer placement. On today's evaluation that is 05/11/2022, patient remains to be afebrile, the patient pain to the left knee area is currently controlled, the patient denies having any chest pain or shortness of breath or cough no abdominal pain or diarrhea Objective - Vital Signs Vital signs: Vital Signs Temp 98.4 F 05/11/22 07:34 Pulse 73 05/11/22 07:34 Resp 17 05/11/22 07:34 BP 126/81 05/11/22 07:34 Pulse Ox 92 L 05/11/22 08:38 FiO2 Intake & Output 05/10/22 05/11/22 05/11/22 18:59 06:59 18:59 Intake Total 888 Output Total 5 20 10 Balance 883 -20 -10 Intake: Oral 888 Output: Drainage 5 20 10 Left Knee 5 20 10 Other: Voiding Method Toilet Toilet # Voids 2 - Exam GENERAL DESCRIPTION: Middle-aged female lying in bed in no distress RESPIRATORY SYSTEM: Unlabored breathing , decreased breath sounds at bases HEART: S1 S2 regular rate and rhythm , ABDOMEN: Soft , no tenderness EXTREMITIES: Left knee is currently dressed no drainage on the dressing - Labs CBC & Chem 7: 05/11/22 05:01 05/11/22 05:01 Labs: Abnormal Lab Results - Last 24 Hours (Table) 05/10/22 05/10/22 05/10/22 Range/Units 17:04 19:23 19:23 WBC (4.50-10.00) X 10*3/uL RBC (4.10-5.20) X 10*6/uL Hgb (12.0-15.0) g/dL Hct (37.2-46.3) % MCHC (32.0-37.0) g/dL RDW (11.5-14.5) % Neutrophils # (1.80-7.70) X 10*3/uL Lymphocytes # (0.90-5.00) X 10*3/uL ESR 41 H (0-20) mm/hr Retic Count 3.0 H (0.5-2.0) % PT (9.9-11.9) sec Glucose (74-99) mg/dL POC Glucose (mg/dL) 164 H (70-110) mg/dL Iron 37 L (50-170) ug/dL % Saturation 11.09 L (12.00-45.00) Total Protein (6.3-8.2) g/dL Total Protein (PEP) (6.2-8.2) g/dL Albumin (3.5-5.0) g/dL 05/10/22 05/10/22 05/11/22 Range/Units 19:23 20:30 05:01 WBC 2.90 L (4.50-10.00) X 10*3/uL RBC 3.00 L (4.10-5.20) X 10*6/uL Hgb 8.2 L (12.0-15.0) g/dL Hct 26.1 L (37.2-46.3) % MCHC 31.4 L (32.0-37.0) g/dL RDW 14.6 H (11.5-14.5) % Neutrophils # 1.79 L (1.80-7.70) X 10*3/uL Lymphocytes # 0.61 L (0.90-5.00) X 10*3/uL ESR (0-20) mm/hr Retic Count (0.5-2.0) % PT (9.9-11.9) sec Glucose (74-99) mg/dL POC Glucose (mg/dL) 213 H (70-110) mg/dL Iron (50-170) ug/dL % Saturation (12.00-45.00) Total Protein (6.3-8.2) g/dL Total Protein (PEP) 6.0 L (6.2-8.2) g/dL Albumin (3.5-5.0) g/dL 05/11/22 05/11/22 05/11/22 Range/Units 05:01 05:01 06:54 WBC (4.50-10.00) X 10*3/uL RBC (4.10-5.20) X 10*6/uL Hgb (12.0-15.0) g/dL Hct (37.2-46.3) % MCHC (32.0-37.0) g/dL RDW (11.5-14.5) % Neutrophils # (1.80-7.70) X 10*3/uL Lymphocytes # (0.90-5.00) X 10*3/uL ESR (0-20) mm/hr Retic Count (0.5-2.0) % PT 12.4 H (9.9-11.9) sec Glucose 161 H (74-99) mg/dL POC Glucose (mg/dL) 180 H (70-110) mg/dL Iron (50-170) ug/dL % Saturation (12.00-45.00) Total Protein 5.8 L (6.3-8.2) g/dL Total Protein (PEP) (6.2-8.2) g/dL Albumin 3.4 L (3.5-5.0) g/dL 05/11/22 Range/Units 11:27 WBC (4.50-10.00) X 10*3/uL RBC (4.10-5.20) X 10*6/uL Hgb (12.0-15.0) g/dL Hct (37.2-46.3) % MCHC (32.0-37.0) g/dL RDW (11.5-14.5) % Neutrophils # (1.80-7.70) X 10*3/uL Lymphocytes # (0.90-5.00) X 10*3/uL ESR (0-20) mm/hr Retic Count (0.5-2.0) % PT (9.9-11.9) sec Glucose (74-99) mg/dL POC Glucose (mg/dL) 142 H (70-110) mg/dL Iron (50-170) ug/dL % Saturation (12.00-45.00) Total Protein (6.3-8.2) g/dL Total Protein (PEP) (6.2-8.2) g/dL Albumin (3.5-5.0) g/dL Microbiology - Last 24 Hours (Table) 05/08/22 16:25 Gram Stain - Preliminary Synovial Fluid Body Fluid Culture - Preliminary 05/08/22 16:25 Gram Stain - Preliminary Knee - Left Tissue Culture - Preliminary 05/08/22 16:25 Gram Stain - Preliminary Knee - Left Tissue Culture - Preliminary Assessment and Plan (1) Status post total left knee replacement Current Visit: No Status: Acute Code(s): Z96.652 - PRESENCE OF LEFT ARTIFICIAL KNEE JOINT SNOMED Code(s): 9536078913158 Plan: 1patient presented to hospital with a chronic pain to the left knee area and this patient recently did have a history of MSSA bacteremia however at that point aspirate of the left knee was negative patient was status post excisional arthroplasty and placement of a left knee implant with operative cultures currently pending. 2sed rate of 41 and blood cultures so far negative. 3 left knee cultures are currently pending. 4patient is currently being treated with vancomycin and cefepime with the discharge antibiotic on basis of cultures Time with Patient: Less than 30
[2022-05-12] MEDS: HYDROmorphone 1 MG/ML 1 ML SYRINGE IVP PRN (00:28)
[2022-05-12] MEDS: CEFEPIME 2 GM in SODIUM CHLORIDE 0.9% 100 ML IVPB SCH (03:17)
[2022-05-12] MEDS: LACTATED RINGERS 1,000 ML IV SCH (04:59)
[2022-05-12 07:38] LABS: Glucose,Whole Blood 178 mg/dL (70-110)
[2022-05-12 08:43] LABS: Basophils # (A) 0.03 X 10*3/uL (0.00-0.10); Eosinophils # (A) 0.14 X 10*3/uL (0.04-0.35); Eosinophils % (A) 4.7 %; HGB 8.2 g/dL (12.0-15.0); Lymphocytes # (A) 0.67 X 10*3/uL (0.90-5.00); Lymphocytes % (A) 22.3 %; MCH 27.9 pg (27.0-32.0); MCHC 32.8 g/dL (32.0-37.0); Monocytes # (A) 0.32 X 10*3/uL (0.20-1.00); Monocytes % (A) 10.6 %; NRBC Per 100 WBC 0 /100 WBCS (0.0-0.0); Neutrophils # (A) 1.82 X 10*3/uL (1.80-7.70); Neutrophils % (A) 60.4 %; Platelet Count 194 X 10*3/uL (140-440); RBC 2.94 X 10*6/uL (4.10-5.20); RDW 14.4 % (11.5-14.5); WBC 3.01 X 10*3/uL (4.50-10.00)
[2022-05-12 08:54] LABS: African American GFR (CKD) 109.1 (60.0-200.0); Albumin 3.6 g/dL (3.8-4.9); Albumin/Globulin Ratio 1.89 (1.60-3.17); Anion Gap 8.5 mmol/L (10.00-18.00); BUN/Creat Ratio 21.29 Ratio (12.00-20.00); Blood Urea Nitrogen 14.9 mg/dL (9.0-27.0); Calcium 8.8 mg/dL (8.7-10.3); Carbon Dioxide 24.5 mmol/L (20.0-27.5); Globulin 1.9 g/dL (1.6-3.3); Non-African American GFR(CKD) 94.2 (60.0-200.0); Potassium 4.7 mmol/L (3.5-5.5); Total Bilirubin 0.2 mg/dL (0.30-1.20); Total Protein 5.5 g/dL (6.2-8.2)
[2022-05-12] MEDS: INSULIN ASPART (NovoLOG) 100 UNIT/ML VIAL SQ SCH ×4 (09:03→21:38)
[2022-05-12] MEDS: FLUTICASONE 50MCG/SPRAY NASAL 16GM EA NOSTRIL SCH (09:04)
[2022-05-12] MEDS: ENOXAPARIN 100 MG/ML SYRINGE SQ SCH ×2 (09:04→20:17)
[2022-05-12] MEDS ORDERED: VANCOMYCIN 1,500 MG in SODIUM CHLORIDE 0.9% 250 ML IVPB SCH (10:00)
[2022-05-12 10:01] LABS: INR 1.14 (0.90-1.11); Prothrombin Time 12.5 sec (9.9-11.9)
[2022-05-12] MEDS: oxyCODONE-APAP 10-325MG 1 EACH TAB PO PRN ×2 (10:39→16:37)
--- NOTE | 2022-05-12 11:05 | P.PN ---
Subjective Progress Note Date: 05/12/22 This is a 62-year-old female patient who presented for an elective left knee arthroplasty with complex removal of prosthetic, fabrication insertion of nonbiodegradable drug delivery implant and irrigation and debridement of subcutaneous tissue muscle and bone and thigh. Patient has a complex medical history including chronic joint infection, coronary artery disease, aortic valve replacement which is maintained on Coumadin. Coumadin has been held since last Saturday. Patient was recently treated with IV antibiotics for bacteremia. Additional medical history includes diabetes mellitus type 2, GERD, hiatal retention, sleep apnea and thyroid disorder. Per orthopedic service is patient tender weight-bear as tolerated to left leg is okay to resume Coumadin for DVT prophylaxis. Patient will need PICC line in the antibiotics for 6 weeks infectious disease services have been consulted. PICC line has been ordered. CBC CMP and INR has been ordered. Pharmacy to dose Coumadin for mechanical valve. At this time patient is sitting comfortably in chair. Patient has been up ambulating with physical therapy. Patient denies chest pain or shortness breath. Patient denies nausea vomiting or diarrhea. Patient denies any urinary burning or frequency On 05/10/2022 patient was seen and examined on the medical floor, she is alert and oriented 3. Patient remains on IV Vanco and cefepime. PICC line is in place awaiting infectious disease input in regards to home IV antibiotics. Awaiting final cultures. Oncology service is CONSULTED for anemia. Awaiting input. Hemoglobin today 8.2. At this time patient denies chest pain or shortness of breath. Patient denies nausea vomiting or diarrhea. Patient denies any urinary burning or frequency. Wound VAC is in place. INR remains low at 0.98. Patient remains on bridging of Lovenox. Pharmacy to dose Coumadin. On 05/11/2022 patient is alert and oriented 3. Patient remains on IV Vanco and cefepime. PICC line is in place awaiting infectious disease input in regards to home IV antibiotics. Awaiting final cultures. Oncology service is CONSULTED for anemia. Awaiting input. Hemoglobin today 8.2. At this time patient denies chest pain or shortness of breath. Patient denies nausea vomiting or diarrhea. Patient denies any urinary burning or frequency. Wound VAC is in place. INR remains low at 1.10. Patient remains on bridging of Lovenox. Pharmacy to dose Coumadin On 05/12/2022 patient was seen and examined on the medical floor she is alert and oriented 3 in no apparent distress there is no fever or chills no headache or dizziness no chest pain no shortness of breath no cough no nausea or vomiting no abdominal pain no diarrhea and no urinary symptoms. At this time patient has a PICC line inserted, we are awaiting culture results for IV antibiotic at discharge, patient also has a mechanical valve, she is maintained on Coumadin, her INR is still subtherapeutic at 1.14, target is 2.5-3.5 she is maintained on subcu Lovenox 90 mg twice a day, will continue with current management will recheck labs in a.m. Objective - Vital Signs Vital signs: Vital Signs Temp 99.0 F 05/12/22 07:50 Pulse 71 05/12/22 07:50 Resp 17 05/12/22 07:50 BP 123/80 05/12/22 07:50 Pulse Ox 93 L 05/12/22 07:50 FiO2 Intake & Output 05/11/22 05/12/22 05/12/22 18:59 06:59 18:59 Intake Total 240 850 Output Total 10 Balance 230 850 Intake: IV 240 Lactated Ringers 1,000 ml 240 @ 20 mls/hr IV .Q24H TIFFANIE Rx#:[id number] Intake, IV Titration 590 Amount Cefepime 2 gm In Sodium 100 Chloride 0.9% 100 ml @ 25 mls/hr IVPB Q12H TIFFANIE Rx# :[id number] Lactated Ringers 1,000 ml 240 @ 20 mls/hr IV .Q24H TIFFANIE Rx#:[id number] Vancomycin 1,500 mg In 250 Sodium Chloride 0.9% 250 ml @ 125 mls/hr IVPB Q18H TIFFANIE Rx#:[id number] Oral 260 Output: Drainage 10 Left Knee 10 Other: Voiding Method Toilet Toilet # Voids 2 - Exam Head normocephalic Neck supple Lungs clear to auscultation bilaterally no wheezing or crackles Heart regular rate and rhythm S1-S2, no rub or gallop Abdomen is soft nontender nondistended positive bowel sounds no he patosplenomegaly Extremities no edema left knee dressing clean dry and intact Neuro alert and orientated to 3 - Labs CBC & Chem 7: 05/12/22 06:44 05/12/22 06:44 Labs: Abnormal Lab Results - Last 24 Hours (Table) 05/10/22 05/11/22 05/11/22 Range/Units 19:23 11:27 16:58 WBC (4.50-10.00) X 10*3/uL RBC (4.10-5.20) X 10*6/uL Hgb (12.0-15.0) g/dL Hct (37.2-46.3) % MPV (9.5-12.2) fL Lymphocytes # (0.90-5.00) X 10*3/uL PT (9.9-11.9) sec INR (0.90-1.11) Anion Gap (10.00-18.00) mmol/L BUN/Creatinine Ratio (12.00-20.00) Ratio Glucose (70-110) mg/dL POC Glucose (mg/dL) 142 H 165 H (70-110) mg/dL Total Bilirubin (0.30-1.20) mg/dL Total Protein (6.2-8.2) g/dL Albumin (3.8-4.9) g/dL Albumin (PEP) 3.59 L (3.80-4.90) g/dL Xumsr-0-Zgofbipht 0.47 L (0.60-1.00) g/dL 05/11/22 05/12/22 05/12/22 Range/Units 20:32 06:44 06:44 WBC 3.01 L (4.50-10.00) X 10*3/uL RBC 2.94 L (4.10-5.20) X 10*6/uL Hgb 8.2 L (12.0-15.0) g/dL Hct 25.0 L (37.2-46.3) % MPV 9.0 L (9.5-12.2) fL Lymphocytes # 0.67 L (0.90-5.00) X 10*3/uL PT 12.5 H (9.9-11.9) sec INR 1.14 H (0.90-1.11) Anion Gap (10.00-18.00) mmol/L BUN/Creatinine Ratio (12.00-20.00) Ratio Glucose (70-110) mg/dL POC Glucose (mg/dL) 156 H (70-110) mg/dL Total Bilirubin (0.30-1.20) mg/dL Total Protein (6.2-8.2) g/dL Albumin (3.8-4.9) g/dL Albumin (PEP) (3.80-4.90) g/dL Ctztb-5-Lnusikpeo (0.60-1.00) g/dL 05/12/22 05/12/22 Range/Units 06:44 07:36 WBC (4.50-10.00) X 10*3/uL RBC (4.10-5.20) X 10*6/uL Hgb (12.0-15.0) g/dL Hct (37.2-46.3) % MPV (9.5-12.2) fL Lymphocytes # (0.90-5.00) X 10*3/uL PT (9.9-11.9) sec INR (0.90-1.11) Anion Gap 8.50 L (10.00-18.00) mmol/L BUN/Creatinine Ratio 21.29 H (12.00-20.00) Ratio Glucose 161 H (70-110) mg/dL POC Glucose (mg/dL) 178 H (70-110) mg/dL Total Bilirubin 0.20 L (0.30-1.20) mg/dL Total Protein 5.5 L (6.2-8.2) g/dL Albumin 3.6 L (3.8-4.9) g/dL Albumin (PEP) (3.80-4.90) g/dL Dneiv-3-Zcdxttjgv (0.60-1.00) g/dL Microbiology - Last 24 Hours (Table) 05/08/22 16:25 Gram Stain - Preliminary Synovial Fluid Body Fluid Culture - Preliminary 05/08/22 16:25 Gram Stain - Preliminary Knee - Left Tissue Culture - Preliminary 05/08/22 16:25 Gram Stain - Preliminary Knee - Left Tissue Culture - Preliminary 05/08/22 16:25 Anaerobic Culture - Preliminary Synovial Fluid Assessment and Plan Assessment: 1. S/P elective left knee arthroplasty with complex removal of prosthetic, fabrication insertion of nonbiodegradable drug delivery implant and irrigation and debridement of subcutaneous tissue muscle and bone and thigh. 2. History of chronic joint infection with prostatic 3. Recent Bacteremia with IV antibiotics. 4. History of aortic valve replacement with mechanical valve. Patient's [place] reed has been on hold. Okay to resume per orthopedic services 5. History of insulin-dependent diabetes mellitus type 2 6. History of essential hypertension 7. History of hyperlipidemia 8. History of hypothyroidism 9. History of bipolar disorder and schizoaffective disorder Thank you for this consultation we will continue to follow patient closely Pharmacy to dose Coumadin resumed CBC, CMP and PT/INR ordered PICC line ordered per orthopedic recommendation. Patient will need 6 weeks of IV antibiotics Infectious disease service is consulted
[2022-05-12 11:17] LABS: Glucose,Whole Blood 164 mg/dL (70-110)
--- NOTE | 2022-05-12 12:47 | P.PN ---
Subjective Progress Note Date: 05/12/22 Principal diagnosis: Left knee septic arthritis Patient is 62 year old female, recently admitted to this facility treated for MSSA bacteremia thought to be related to the right diabetic foot infection, patient did have echocardiogram that was negative as well as BLANCA and also have aspirate from the left ear which was negative, patient subsequently has been admitted to the hospital concerning for left knee infection status post excisional arthroplasty and antibiotic spacer placement. On today's evaluation that is 05/12/2022, patient denies any fever or chills, the patient pain to the left knee area is currently controlled, the patient denies having any chest pain or shortness of breath or cough , the patient denies abdominal pain or diarrhea Objective - Vital Signs Vital signs: Vital Signs Temp 99.0 F 05/12/22 07:50 Pulse 71 05/12/22 07:50 Resp 17 05/12/22 07:50 BP 123/80 05/12/22 07:50 Pulse Ox 93 L 05/12/22 07:50 FiO2 Intake & Output 05/11/22 05/12/22 05/12/22 18:59 06:59 18:59 Intake Total 240 850 Output Total 10 Balance 230 850 Intake: IV 240 Lactated Ringers 1,000 ml 240 @ 20 mls/hr IV .Q24H TIFFANIE Rx#:[id number] Intake, IV Titration 590 Amount Cefepime 2 gm In Sodium 100 Chloride 0.9% 100 ml @ 25 mls/hr IVPB Q12H TIFFANIE Rx# :[id number] Lactated Ringers 1,000 ml 240 @ 20 mls/hr IV .Q24H TIFFANIE Rx#:[id number] Vancomycin 1,500 mg In 250 Sodium Chloride 0.9% 250 ml @ 125 mls/hr IVPB Q18H TIFFANIE Rx#:[id number] Oral 260 Output: Drainage 10 Left Knee 10 Other: Voiding Method Toilet Toilet # Voids 2 - Exam GENERAL DESCRIPTION: Middle-aged female lying in bed in no distress RESPIRATORY SYSTEM: Unlabored breathing , decreased breath sounds at bases HEART: S1 S2 regular rate and rhythm , ABDOMEN: Soft , no tenderness EXTREMITIES: Left knee is currently dressed no drainage on the dressing - Labs CBC & Chem 7: 05/12/22 06:44 05/12/22 06:44 Labs: Abnormal Lab Results - Last 24 Hours (Table) 05/10/22 05/11/22 05/11/22 Range/Units 19:23 16:58 20:32 WBC (4.50-10.00) X 10*3/uL RBC (4.10-5.20) X 10*6/uL Hgb (12.0-15.0) g/dL Hct (37.2-46.3) % MPV (9.5-12.2) fL Lymphocytes # (0.90-5.00) X 10*3/uL PT (9.9-11.9) sec INR (0.90-1.11) Anion Gap (10.00-18.00) mmol/L BUN/Creatinine Ratio (12.00-20.00) Ratio Glucose (70-110) mg/dL POC Glucose (mg/dL) 165 H 156 H (70-110) mg/dL Total Bilirubin (0.30-1.20) mg/dL Total Protein (6.2-8.2) g/dL Albumin (3.8-4.9) g/dL Albumin (PEP) 3.59 L (3.80-4.90) g/dL Bfola-1-[id number] 0.47 L (0.60-1.00) g/dL 05/12/22 05/12/22 05/12/22 Range/Units 06:44 06:44 06:44 WBC 3.01 L (4.50-10.00) X 10*3/uL RBC 2.94 L (4.10-5.20) X 10*6/uL Hgb 8.2 L (12.0-15.0) g/dL Hct 25.0 L (37.2-46.3) % MPV 9.0 L (9.5-12.2) fL Lymphocytes # 0.67 L (0.90-5.00) X 10*3/uL PT 12.5 H (9.9-11.9) sec INR 1.14 H (0.90-1.11) Anion Gap 8.50 L (10.00-18.00) mmol/L BUN/Creatinine Ratio 21.29 H (12.00-20.00) Ratio Glucose 161 H (70-110) mg/dL POC Glucose (mg/dL) (70-110) mg/dL Total Bilirubin 0.20 L (0.30-1.20) mg/dL Total Protein 5.5 L (6.2-8.2) g/dL Albumin 3.6 L (3.8-4.9) g/dL Albumin (PEP) (3.80-4.90) g/dL Gopff-3-Spwbipvkw (0.60-1.00) g/dL 05/12/22 05/12/22 Range/Units 07:36 11:16 WBC (4.50-10.00) X 10*3/uL RBC (4.10-5.20) X 10*6/uL Hgb (12.0-15.0) g/dL Hct (37.2-46.3) % MPV (9.5-12.2) fL Lymphocytes # (0.90-5.00) X 10*3/uL PT (9.9-11.9) sec INR (0.90-1.11) Anion Gap (10.00-18.00) mmol/L BUN/Creatinine Ratio (12.00-20.00) Ratio Glucose (70-110) mg/dL POC Glucose (mg/dL) 178 H 164 H (70-110) mg/dL Total Bilirubin (0.30-1.20) mg/dL Total Protein (6.2-8.2) g/dL Albumin (3.8-4.9) g/dL Albumin (PEP) (3.80-4.90) g/dL Qoggn-6-Rzxnmfzre (0.60-1.00) g/dL Microbiology - Last 24 Hours (Table) 05/08/22 16:25 Gram Stain - Preliminary Synovial Fluid Body Fluid Culture - Preliminary 05/08/22 16:25 Gram Stain - Preliminary Knee - Left Tissue Culture - Preliminary 05/08/22 16:25 Gram Stain - Preliminary Knee - Left Tissue Culture - Preliminary 05/08/22 16:25 Anaerobic Culture - Preliminary Synovial Fluid Assessment and Plan (1) Status post total left knee replacement Current Visit: No Status: Acute Code(s): Z96.652 - PRESENCE OF LEFT ARTIFICIAL KNEE JOINT SNOMED Code(s): 3513513833074 Plan: 1patient presented to hospital with a chronic pain to the left knee area and this patient recently did have a history of MSSA bacteremia however at that point aspirate of the left knee was negative patient was status post excisional arthroplasty and placement of a left knee implant with operative cultures currently pending. 2sed rate of 41 and blood cultures so far negative. 3 left knee cultures are so far negative 4we will discontinue cefepime and vancomycin, start the patient cefazolin 2 g every 8 hours on the basis of previous culture, waiting for outpatient IV antibiotic arrangement Time with Patient: Less than 30
[2022-05-12 16:17] LABS: Glucose,Whole Blood 172 mg/dL (70-110)
[2022-05-12] MEDS ORDERED: WARFARIN 3 MG TAB PO ONE (18:00)
[2022-05-12] MEDS: LEVOTHYROXINE 112 MCG TAB PO SCH (18:31)
[2022-05-12] MEDS: lisinopriL 5 MG TAB PO SCH (18:32)
[2022-05-12] MEDS: VENLAFAXINE HCL ER 150 MG CAP PO SCH (18:32)
[2022-05-12] MEDS: METOPROLOL SUCCINATE (ER) 100 MG TAB.ER.24H PO SCH (18:32)
[2022-05-12] MEDS: SENNOSIDES-DOCUSATE SODIUM 1 EACH TAB PO SCH (20:17)
[2022-05-12] MEDS: hydrOXYzine pamoate 25 MG CAP PO PRN (20:18)
[2022-05-12 20:36] LABS: Glucose,Whole Blood 178 mg/dL (70-110)
[2022-05-12] MEDS: HYDROmorphone 0.5 MG/0.5 ML SYRINGE IVP PRN (21:30)
[2022-05-12] MEDS: clonazePAM 1 MG TAB PO SCH (21:38)
[2022-05-12] MEDS: OLANZapine 10 MG TAB PO SCH (21:39)
[2022-05-13] MEDS: hydrOXYzine pamoate 25 MG CAP PO PRN ×4 (00:15→20:55)
[2022-05-13] MEDS: oxyCODONE-APAP 10-325MG 1 EACH TAB PO PRN ×4 (00:16→20:55)
[2022-05-13] MEDS: LACTATED RINGERS 1,000 ML IV SCH (05:13)
[2022-05-13 08:46] LABS: Glucose,Whole Blood 171 mg/dL (70-110)
--- NOTE | 2022-05-13 08:46 | P.PN ---
Progress Note - Text Progress Note Date: 05/13/22 I reviewed all the laboratory data and cultures with the patient. Her cultures have been negative up to this point, but we discussed that 30% of infected joints are culture negative. 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 Her CRP was elevated (2-points), her ESR was elevated (1-point), her synovial aspirate had an elevated WBC of >3,000 (3 points) and she had an elevated synovial PMN percentage >70% (2 points) giving her an MSIS score of 8 (anything > 6 is considered infected). Given the whole clinical picture (recent MSSA bacteremia, MSIS score of 8, cloudy, brown synovial fluid and loosening of the components at less than 2 years from her index procedure) I would like to co ntinue treating her for PJI with 6-weeks of IV antibiotics and re-implantation following this treatment. The patient understands and agrees with all of this.
[2022-05-13] MEDS: INSULIN ASPART (NovoLOG) 100 UNIT/ML VIAL SQ SCH ×4 (08:54→21:29)
[2022-05-13] MEDS: FLUTICASONE 50MCG/SPRAY NASAL 16GM EA NOSTRIL SCH (08:55)
[2022-05-13] MEDS: ENOXAPARIN 100 MG/ML SYRINGE SQ SCH ×2 (08:55→21:29)
--- NOTE | 2022-05-13 09:31 | P.PN ---
Subjective Progress Note Date: 05/12/22 Principal diagnosis: Status-post removal of prosthesis left knee TKA, I&D, and insertion of articulating spacer on 05/08/22. Late Entry: This is a 62 year-old female post removal of prosthesis left knee TKA, I&D, and insertion of articulating spacer on 05/08/22. . This is post-op day 4. The patient was evaluated at the bedside today. The patient denies nausea, vomiting, abdominal pain, shortness of breath, and chest pain this morning. She states her pain is controlled at this time. We are awaiting antibiotic determination and set up for home. Objective - Vital Signs Vital signs: Vital Signs Temp 97.9 F 05/13/22 02:00 Pulse 70 05/13/22 02:00 Resp 16 05/13/22 02:00 BP 115/68 05/13/22 02:00 Pulse Ox 94 L 05/13/22 02:00 FiO2 Intake & Output 05/12/22 05/13/22 05/13/22 18:59 06:59 18:59 Intake Total 360 Balance 360 Intake: Oral 360 Other: Voiding Method Toilet # Voids 5 2 - Exam The patient does not appear in acute distress. Alert and orientated x3. Prevena wound vac in place. Calf is soft and nontender. Good foot and ankle motion without difficulty. Sensation and circulatory status is intact. - Labs CBC & Chem 7: 05/12/22 06:44 05/12/22 06:44 Labs: Abnormal Lab Results - Last 24 Hours (Table) 05/12/22 05/12/22 05/12/22 Range/Units 06:44 06:44 06:44 WBC 3.01 L (4.50-10.00) X 10*3/uL RBC 2.94 L (4.10-5.20) X 10*6/uL Hgb 8.2 L (12.0-15.0) g/dL Hct 25.0 L (37.2-46.3) % MPV 9.0 L (9.5-12.2) fL Lymphocytes # 0.67 L (0.90-5.00) X 10*3/uL PT 12.5 H (9.9-11.9) sec INR 1.14 H (0.90-1.11) Anion Gap 8.50 L (10.00-18.00) mmol/L BUN/Creatinine Ratio 21.29 H (12.00-20.00) Ratio Glucose 161 H (70-110) mg/dL POC Glucose (mg/dL) (70-110) mg/dL Total Bilirubin 0.20 L (0.30-1.20) mg/dL Total Protein 5.5 L (6.2-8.2) g/dL Albumin 3.6 L (3.8-4.9) g/dL 05/12/22 05/12/22 05/12/22 Range/Units 07:36 11:16 16:15 WBC (4.50-10.00) X 10*3/uL RBC (4.10-5.20) X 10*6/uL Hgb (12.0-15.0) g/dL Hct (37.2-46.3) % MPV (9.5-12.2) fL Lymphocytes # (0.90-5.00) X 10*3/uL PT (9.9-11.9) sec INR (0.90-1.11) Anion Gap (10.00-18.00) mmol/L BUN/Creatinine Ratio (12.00-20.00) Ratio Glucose (70-110) mg/dL POC Glucose (mg/dL) 178 H 164 H 172 H (70-110) mg/dL Total Bilirubin (0.30-1.20) mg/dL Total Protein (6.2-8.2) g/dL Albumin (3.8-4.9) g/dL 05/12/22 Range/Units 20:34 WBC (4.50-10.00) X 10*3/uL RBC (4.10-5.20) X 10*6/uL Hgb (12.0-15.0) g/dL Hct (37.2-46.3) % MPV (9.5-12.2) fL Lymphocytes # (0.90-5.00) X 10*3/uL PT (9.9-11.9) sec INR (0.90-1.11) Anion Gap (10.00-18.00) mmol/L BUN/Creatinine Ratio (12.00-20.00) Ratio Glucose (70-110) mg/dL POC Glucose (mg/dL) 178 H (70-110) mg/dL Total Bilirubin (0.30-1.20) mg/dL Total Protein (6.2-8.2) g/dL Albumin (3.8-4.9) g/dL Microbiology - Last 24 Hours (Table) 05/08/22 16:25 Gram Stain - Final Knee - Left Tissue Culture - Final 05/08/22 16:25 Gram Stain - Final Knee - Left Tissue Culture - Final 05/08/22 16:25 Gram Stain - Preliminary Synovial Fluid Body Fluid Culture - Preliminary Assessment and Plan (1) Prosthetic joint infection Current Visit: Yes Status: Acute Code(s): T84.50XA - INFECT/INFLM REACTION DUE TO UNSP INT JOINT PROSTH, INIT SNOMED Code(s): 209175629 (2) Bacteremia Current Visit: No Status: Acute Code(s): R78.81 - BACTEREMIA SNOMED Code(s): 5835179 Plan: 1. Continue pain control 2. Anticoagulation per internal medicine. Currently on Lovenox and Coumadin. 3. Continue physical therapy and ambulation 4. Anticipate discharge home when IV antibiotic therapy is determined and set up.
--- NOTE | 2022-05-13 09:32 | P.PN ---
Subjective Progress Note Date: 05/13/22 Principal diagnosis: Status-post removal of prosthesis left knee TKA, I&D, and insertion of articulating spacer on 05/08/22. This is a 62 year-old female post removal of prosthesis left knee TKA, I&D, and insertion of articulating spacer on 05/08/22. . This is post-op day 5. The patient was evaluated at the bedside today. The patient denies nausea, vomiti ng, abdominal pain, shortness of breath, and chest pain this morning. She states her pain is controlled at this time. We are awaiting set up of IV antibiotics for home. Dr. Fernandez recommends Cefazolin upon discharge. Objective - Vital Signs Vital signs: Vital Signs Temp 98.8 F 05/13/22 07:50 Pulse 72 05/13/22 07:50 Resp 20 05/13/22 07:50 BP 136/82 05/13/22 07:50 Pulse Ox 93 L 05/13/22 07:50 FiO2 Intake & Output 05/12/22 05/13/22 05/13/22 18:59 06:59 18:59 Intake Total 360 Balance 360 Intake: Oral 360 Other: Voiding Method Toilet # Voids 5 2 - Exam The patient does not appear in acute distress. Alert and orientated x3. Prevena wound vac in place. Calf is soft and nontender. Good foot and ankle motion without difficulty. Sensation and circulatory status is intact. - Labs CBC & Chem 7: 05/12/22 06:44 05/12/22 06:44 Labs: Abnormal Lab Results - Last 24 Hours (Table) 05/12/22 05/12/22 05/12/22 Range/Units 06:44 11:16 16:15 PT 12.5 H (9.9-11.9) sec INR 1.14 H (0.90-1.11) POC Glucose (mg/dL) 164 H 172 H (70-110) mg/dL 05/12/22 05/13/22 Range/Units 20:34 08:44 PT (9.9-11.9) sec INR (0.90-1.11) POC Glucose (mg/dL) 178 H 171 H (70-110) mg/dL Microbiology - Last 24 Hours (Table) 05/08/22 16:25 Gram Stain - Final Knee - Left Tissue Culture - Final 05/08/22 16:25 Gram Stain - Final Knee - Left Tissue Culture - Final 05/08/22 16:25 Gram Stain - Preliminary Synovial Fluid Body Fluid Culture - Preliminary Assessment and Plan (1) Prosthetic joint infection Current Visit: Yes Status: Acute Code(s): T84.50XA - INFECT/INFLM REACTION DUE TO UNSP INT JOINT PROSTH, INIT SNOMED Code(s): 463020863 (2) Bacteremia Current Visit: No Status: Acute Code(s): R78.81 - BACTEREMIA SNOMED Code(s): 5788821 Plan: 1. Continue pain control 2. Anticoagulation per internal medicine. Currently on Lovenox and Coumadin. 3. Continue physical therapy and ambulation 4. Anticipate discharge home when IV antibiotic therapy is set up.
[2022-05-13 09:41] LABS: Basophils # (A) 0.04 X 10*3/uL (0.00-0.10); Basophils % (A) 1.2 %; Eosinophils # (A) 0.14 X 10*3/uL (0.04-0.35); Eosinophils % (A) 4.2 %; HCT 25.2 % (37.2-46.3); HGB 8.1 g/dL (12.0-15.0); Immature Grans, Automated 1.8 %; Lymphocytes # (A) 0.69 X 10*3/uL (0.90-5.00); Lymphocytes % (A) 20.8 %; MCH 27.9 pg (27.0-32.0); MCHC 32.1 g/dL (32.0-37.0); MCV 86.9 fL (80.0-97.0); Mean Platelet Volume 9.4 fL (9.5-12.2); Monocytes # (A) 0.33 X 10*3/uL (0.20-1.00); Monocytes % (A) 9.9 %; NRBC Per 100 WBC 0 /100 WBCS (0.0-0.0); Neutrophils # (A) 2.06 X 10*3/uL (1.80-7.70); Neutrophils % (A) 62.1 %; Platelet Count 211 X 10*3/uL (140-440); RDW 14.5 % (11.5-14.5); WBC 3.32 X 10*3/uL (4.50-10.00)
[2022-05-13 09:56] LABS: African American GFR (CKD) 92.9 (60.0-200.0); Albumin 3.6 g/dL (3.8-4.9); Albumin/Globulin Ratio 1.71 (1.60-3.17); Anion Gap 10.8 mmol/L (10.00-18.00); Calcium 8.6 mg/dL (8.7-10.3); Carbon Dioxide 23.2 mmol/L (20.0-27.5); Globulin 2.1 g/dL (1.6-3.3); Non-African American GFR(CKD) 80.1 (60.0-200.0); Potassium 4.3 mmol/L (3.5-5.5); Total Bilirubin 0.2 mg/dL (0.30-1.20); Total Protein 5.7 g/dL (6.2-8.2)
[2022-05-13 10:18] LABS: INR 1.19 (0.90-1.11)
--- NOTE | 2022-05-13 11:00 | P.PN ---
Subjective Progress Note Date: 05/13/22 This is a 62-year-old female patient who presented for an elective left knee arthroplasty with complex removal of prosthetic, fabrication insertion of nonbiodegradable drug delivery implant and irrigation and debridement of subcutaneous tissue muscle and bone and thigh. Patient has a complex medical history including chronic joint infection, coronary artery disease, aortic valve replacement which is maintained on Coumadin. Coumadin has been held since last Saturday. Patient was recently treated with IV antibiotics for bacteremia. Additional medical history includes diabetes mellitus type 2, GERD, hiatal retention, sleep apnea and thyroid disorder. Per orthopedic service is patient tender weight-bear as tolerated to left leg is okay to resume Coumadin for DVT prophylaxis. Patient will need PICC line in the antibiotics for 6 weeks infectious disease services have been consulted. PICC line has been ordered. CBC CMP and INR has been ordered. Pharmacy to dose Coumadin for mechanical valve. At this time patient is sitting comfortably in chair. Patient has been up ambulating with physical therapy. Patient denies chest pain or shortness breath. Patient denies nausea vomiting or diarrhea. Patient denies any urinary burning or frequency On 05/10/2022 patient was seen and examined on the medical floor, she is alert and oriented 3. Patient remains on IV Vanco and cefepime. PICC line is in place awaiting infectious disease input in regards to home IV antibiotics. Awaiting final cultures. Oncology service is CONSULTED for anemia. Awaiting input. Hemoglobin today 8.2. At this time patient denies chest pain or shortness of breath. Patient denies nausea vomiting or diarrhea. Patient denies any urinary burning or frequency. Wound VAC is in place. INR remains low at 0.98. Patient remains on bridging of Lovenox. Pharmacy to dose Coumadin. On 05/11/2022 patient is alert and oriented 3. Patient remains on IV Vanco and cefepime. PICC line is in place awaiting infectious disease input in regards to home IV antibiotics. Awaiting final cultures. Oncology service is CONSULTED for anemia. Awaiting input. Hemoglobin today 8.2. At this time patient denies chest pain or shortness of breath. Patient denies nausea vomiting or diarrhea. Patient denies any urinary burning or frequency. Wound VAC is in place. INR remains low at 1.10. Patient remains on bridging of Lovenox. Pharmacy to dose Coumadin On 05/12/2022 patient was seen and examined on the medical floor she is alert and oriented 3 in no apparent distress there is no fever or chills no headache or dizziness no chest pain no shortness of breath no cough no nausea or vomiting no abdominal pain no diarrhea and no urinary symptoms. At this time patient has a PICC line inserted, we are awaiting culture results for IV antibiotic at discharge, patient also has a mechanical valve, she is maintained on Coumadin, her INR is still subtherapeutic at 1.14, target is 2.5-3.5 she is maintained on subcu Lovenox 90 mg twice a day, will continue with current management will recheck labs in a.m. On 05/13/2022 patient is alert and oriented 3 in no apparent distress, she is complaining of some pain in the left knee area otherwise she denies any complaints, there is no fever or chills no headache or dizziness no chest pain no shortness of breath no cough no nausea or vomiting no abdominal pain no diarrhea and no urinary symptoms. At this time patient has a PICC line inserted, we are awaiting culture results for IV antibiotic at discharge, patient also has a mechanical valve, she is maintained on Coumadin, her INR is still subtherapeutic at 1.14, target is 2.5-3.5 she is maintained on subcu Lovenox 90 mg twice a day, will continue with current management will recheck labs in a.m. Objective - Vital Signs Vital signs: Vital Signs Temp 98.8 F 05/13/22 07:50 Pulse 72 05/13/22 07:50 Resp 20 05/13/22 07:50 BP 136/82 05/13/22 07:50 Pulse Ox 93 L 05/13/22 07:50 FiO2 Intake & Output 05/12/22 05/13/22 05/13/22 18:59 06:59 18:59 Intake Total 360 Balance 360 Intake: Oral 360 Other: Voiding Method Toilet # Voids 5 2 - Exam Head normocephalic Neck supple Lungs clear to auscultation bilaterally no wheezing or crackles Heart regular rate and rhythm S1-S2, no rub or gallop Abdomen is soft nontender nondistended positive bowel sounds no hepatosplenomegaly Extremities no edema left knee dressing clean dry and intact Neuro alert and orientated to 3 - Labs CBC & Chem 7: 05/13/22 05:51 05/13/22 05:51 Labs: Abnormal Lab Results - Last 24 Hours (Table) 05/12/22 05/12/22 05/12/22 Range/Units 11:16 16:15 20:34 WBC (4.50-10.00) X 10*3/uL RBC (4.10-5.20) X 10*6/uL Hgb (12.0-15.0) g/dL Hct (37.2-46.3) % MPV (9.5-12.2) fL Immature Gran # (0.00-0.04) X 10*3/uL Lymphocytes # (0.90-5.00) X 10*3/uL PT (9.9-11.9) sec INR (0.90-1.11) Sodium (135-145) mmol/L Glucose (70-110) mg/dL POC Glucose (mg/dL) 164 H 172 H 178 H (70-110) mg/dL Calcium (8.7-10.3) mg/dL Total Bilirubin (0.30-1.20) mg/dL Total Protein (6.2-8.2) g/dL Albumin (3.8-4.9) g/dL 05/13/22 05/13/22 05/13/22 Range/Units 05:51 05:51 05:51 WBC 3.32 L (4.50-10.00) X 10*3/uL RBC 2.90 L (4.10-5.20) X 10*6/uL Hgb 8.1 L (12.0-15.0) g/dL Hct 25.2 L (37.2-46.3) % MPV 9.4 L (9.5-12.2) fL Immature Gran # 0.06 H (0.00-0.04) X 10*3/uL Lymphocytes # 0.69 L (0.90-5.00) X 10*3/uL PT 13.0 H (9.9-11.9) sec INR 1.19 H (0.90-1.11) Sodium 134 L (135-145) mmol/L Glucose 166 H (70-110) mg/dL POC Glucose (mg/dL) (70-110) mg/dL Calcium 8.6 L (8.7-10.3) mg/dL Total Bilirubin 0.20 L (0.30-1.20) mg/dL Total Protein 5.7 L (6.2-8.2) g/dL Albumin 3.6 L (3.8-4.9) g/dL 05/13/22 Range/Units 08:44 WBC (4.50-10.00) X 10*3/uL RBC (4.10-5.20) X 10*6/uL Hgb (12.0-15.0) g/dL Hct (37.2-46.3) % MPV (9.5-12.2) fL Immature Gran # (0.00-0.04) X 10*3/uL Lymphocytes # (0.90-5.00) X 10*3/uL PT (9.9-11.9) sec INR (0.90-1.11) Sodium (135-145) mmol/L Glucose (70-110) mg/dL POC Glucose (mg/dL) 171 H (70-110) mg/dL Calcium (8.7-10.3) mg/dL Total Bilirubin (0.30-1.20) mg/dL Total Protein (6.2-8.2) g/dL Albumin (3.8-4.9) g/dL Microbiology - Last 24 Hours (Table) 05/08/22 16:25 Gram Stain - Final Synovial Fluid Body Fluid Culture - Final 05/08/22 16:25 Anaerobic Culture - Final Synovial Fluid 05/08/22 16:25 Gram Stain - Final Knee - Left Tissue Culture - Final 05/08/22 16:25 Gram Stain - Final Knee - Left Tissue Culture - Final Assessment and Plan Assessment: 1. S/P elective left knee arthroplasty with complex removal of prosthetic, fabrication insertion of nonbiodegradable drug delivery implant and irrigation and debridement of subcutaneous tissue muscle and bone and thigh. 2. History of chronic joint infection with prostatic 3. Recent Bacteremia with IV antibiotics. 4. History of aortic valve replacement with mechanical valve. Patient's Coumadin has been on hold. Okay to resume per orthopedic services 5. History of insulin-dependent diabetes mellitus type 2 6. History of essential hypertension 7. History of hyperlipidemia 8. History of hypothyroidism 9. History of bipolar disorder and schizoaffective disorder Thank you for this consultation we will continue to follow patient closely Pharmacy to dose Coumadin resumed CBC, CMP and PT/INR ordered PICC line ordered per orthopedic recommendation. Patient will need 6 weeks of IV antibiotics Infectious disease service is consulted
[2022-05-13 11:44] LABS: Glucose,Whole Blood 170 mg/dL (70-110)
[2022-05-13 16:53] LABS: Glucose,Whole Blood 139 mg/dL (70-110)
[2022-05-13] MEDS: LEVOTHYROXINE 112 MCG TAB PO SCH (17:27)
[2022-05-13] MEDS: VENLAFAXINE HCL ER 150 MG CAP PO SCH (17:27)
[2022-05-13] MEDS: lisinopriL 5 MG TAB PO SCH (17:27)
[2022-05-13] MEDS: METOPROLOL SUCCINATE (ER) 100 MG TAB.ER.24H PO SCH (17:27)
[2022-05-13] MEDS ORDERED: WARFARIN 5 MG TAB PO ONE (18:00)
[2022-05-13 20:44] LABS: Glucose,Whole Blood 169 mg/dL (70-110)
[2022-05-13] MEDS: SENNOSIDES-DOCUSATE SODIUM 1 EACH TAB PO SCH (21:29)
[2022-05-13] MEDS: clonazePAM 1 MG TAB PO SCH (21:29)
[2022-05-13] MEDS: OLANZapine 10 MG TAB PO SCH (21:29)
[2022-05-14] MEDS: LACTATED RINGERS 1,000 ML IV SCH (04:06)
[2022-05-14 06:53] LABS: Glucose,Whole Blood 191 mg/dL (70-110)
[2022-05-14] MEDS ORDERED: VANCOMYCIN TROUGH DUE 1 EACH MISC MISCELLANE ONE (07:00)
--- NOTE | 2022-05-14 07:36 | P.PN ---
Subjective Progress Note Date: 05/13/22 Principal diagnosis: Left knee septic arthritis Patient is 62 year old female, recently admitted to this facility treated for MSSA bacteremia thought to be related to the right diabetic foot infection, patient did have echocardiogram that was negative as well as BLANCA and also have aspirate from the left ear which was negative, patient subsequently has been admitted to the hospital concerning for left knee infection status post excisional arthroplasty and antibiotic spacer placement. On today's evaluation that is 05/13/2022, patient remains to be afebrile, the patient pain to the left knee area is controlled with current medication, the patient denies having any chest pain or shortness of breath or cough , the patient denies abdominal pain or diarrhea Objective - Vital Signs Vital signs: Vital Signs Temp 98.5 F 05/13/22 14:00 Pulse 80 05/13/22 14:00 Resp 16 05/13/22 14:00 BP 93/58 05/13/22 14:00 Pulse Ox 98 05/13/22 14:00 FiO2 Intake & Output 05/12/22 05/13/22 05/13/22 18:59 06:59 18:59 Intake Total 360 Balance 360 Intake: Oral 360 Other: Voiding Method Toilet # Voids 5 2 - Exam GENERAL DESCRIPTION: Middle-aged female lying in bed in no distress RESPIRATORY SYSTEM: Unlabored breathing , decreased breath sounds at bases HEART: S1 S2 regular rate and rhythm , ABDOMEN: Soft , no tenderness EXTREMITIES: Left knee is currently dressed no drainage on the dressing - Labs CBC & Chem 7: 05/13/22 05:51 05/13/22 05:51 Labs: Abnormal Lab Results - Last 24 Hours (Table) 05/12/22 05/12/22 05/13/22 Range/Units 16:15 20:34 05:51 WBC (4.50-10.00) X 10*3/uL RBC (4.10-5.20) X 10*6/uL Hgb (12.0-15.0) g/dL Hct (37.2-46.3) % MPV (9.5-12.2) fL Immature Gran # (0.00-0.04) X 10*3/uL Lymphocytes # (0.90-5.00) X 10*3/uL PT 13.0 H (9.9-11.9) sec INR 1.19 H (0.90-1.11) Sodium (135-145) mmol/L Glucose (70-110) mg/dL POC Glucose (mg/dL) 172 H 178 H (70-110) mg/dL Calcium (8.7-10.3) mg/dL Total Bilirubin (0.30-1.20) mg/dL Total Protein (6.2-8.2) g/dL Albumin (3.8-4.9) g/dL 05/13/22 05/13/22 05/13/22 Range/Units 05:51 05:51 08:44 WBC 3.32 L (4.50-10.00) X 10*3/uL RBC 2.90 L (4.10-5.20) X 10*6/uL Hgb 8.1 L (12.0-15.0) g/dL Hct 25.2 L (37.2-46.3) % MPV 9.4 L (9.5-12.2) fL Immature Gran # 0.06 H (0.00-0.04) X 10*3/uL Lymphocytes # 0.69 L (0.90-5.00) X 10*3/uL PT (9.9-11.9) sec INR (0.90-1.11) Sodium 134 L (135-145) mmol/L Glucose 166 H (70-110) mg/dL POC Glucose (mg/dL) 171 H (70-110) mg/dL Calcium 8.6 L (8.7-10.3) mg/dL Total Bilirubin 0.20 L (0.30-1.20) mg/dL Total Protein 5.7 L (6.2-8.2) g/dL Albumin 3.6 L (3.8-4.9) g/dL 05/13/22 Range/Units 11:43 WBC (4.50-10.00) X 10*3/uL RBC (4.10-5.20) X 10*6/uL Hgb (12.0-15.0) g/dL Hct (37.2-46.3) % MPV (9.5-12.2) fL Immature Gran # (0.00-0.04) X 10*3/uL Lymphocytes # (0.90-5.00) X 10*3/uL PT (9.9-11.9) sec INR (0.90-1.11) Sodium (135-145) mmol/L Glucose (70-110) mg/dL POC Glucose (mg/dL) 170 H (70-110) mg/dL Calcium (8.7-10.3) mg/dL Total Bilirubin (0.30-1.20) mg/dL Total Protein (6.2-8.2) g/dL Albumin (3.8-4.9) g/dL Microbiology - Last 24 Hours (Table) 05/08/22 16:25 Gram Stain - Final Synovial Fluid Body Fluid Culture - Final 05/08/22 16:25 Anaerobic Culture - Final Synovial Fluid 05/08/22 16:25 Gram Stain - Final Knee - Left Tissue Culture - Final 05/08/22 16:25 Gram Stain - Final Knee - Left Tissue Culture - Final Assessment and Plan (1) Status post total left knee replacement Current Visit: No Status: Acute Code(s): Z96.652 - PRESENCE OF LEFT ARTIFI CIAL KNEE JOINT SNOMED Code(s): 5667083400193 Plan: 1patient presented to hospital with a chronic pain to the left knee area and this patient recently did have a history of MSSA bacteremia however at that point aspirate of the left knee was negative patient was status post excisional arthroplasty and placement of a left knee implant with operative cultures currently pending. 2sed rate of 41 and blood cultures so far negative. 3 left knee cultures are so far negative 4patient to continue with cefazolin 2 g every 8 hours 6 weeks waiting for outpatient IV antibiotics arrangement before discharge Time with Patient: Less than 30
[2022-05-14] MEDS: oxyCODONE-APAP 10-325MG 1 EACH TAB PO PRN ×2 (07:51→14:04)
[2022-05-14] MEDS: hydrOXYzine pamoate 25 MG CAP PO PRN (07:52)
[2022-05-14] MEDS: ENOXAPARIN 100 MG/ML SYRINGE SQ SCH ×2 (08:28→17:01)
[2022-05-14] MEDS: INSULIN ASPART (NovoLOG) 100 UNIT/ML VIAL SQ SCH ×2 (08:28→11:59)
[2022-05-14] MEDS: FLUTICASONE 50MCG/SPRAY NASAL 16GM EA NOSTRIL SCH (08:29)
[2022-05-14 08:42] LABS: Basophils # (A) 0.05 X 10*3/uL (0.00-0.10); Basophils % (A) 1.3 %; Eosinophils # (A) 0.14 X 10*3/uL (0.04-0.35); Eosinophils % (A) 3.7 %; HCT 24.1 % (37.2-46.3); HGB 7.7 g/dL (12.0-15.0); Immature Grans, Automated 2.9 %; Lymphocytes # (A) 0.64 X 10*3/uL (0.90-5.00); Lymphocytes % (A) 17.1 %; MCH 27.5 pg (27.0-32.0); MCV 86.1 fL (80.0-97.0); Mean Platelet Volume 9.5 fL (9.5-12.2); Monocytes # (A) 0.32 X 10*3/uL (0.20-1.00); Monocytes % (A) 8.6 %; NRBC Per 100 WBC 0 /100 WBCS (0.0-0.0); Neutrophils # (A) 2.48 X 10*3/uL (1.80-7.70); Neutrophils % (A) 66.4 %; Platelet Count 212 X 10*3/uL (140-440); RDW 14.3 % (11.5-14.5); WBC 3.74 X 10*3/uL (4.50-10.00)
[2022-05-14 09:02] LABS: African American GFR (CKD) 109.1 (60.0-200.0); Albumin 3.6 g/dL (3.8-4.9); Albumin/Globulin Ratio 1.8 (1.60-3.17); Anion Gap 11.8 mmol/L (10.00-18.00); BUN/Creat Ratio 21.86 Ratio (12.00-20.00); Blood Urea Nitrogen 15.3 mg/dL (9.0-27.0); Calcium 8.7 mg/dL (8.7-10.3); Carbon Dioxide 22.2 mmol/L (20.0-27.5); Non-African American GFR(CKD) 94.2 (60.0-200.0); Potassium 4.4 mmol/L (3.5-5.5); Total Bilirubin 0.2 mg/dL (0.30-1.20); Total Protein 5.6 g/dL (6.2-8.2)
[2022-05-14 09:34] LABS: INR 1.35 (0.90-1.11); Prothrombin Time 14.6 sec (9.9-11.9)
[2022-05-14 11:20] LABS: Glucose,Whole Blood 174 mg/dL (70-110)
[2022-05-14 14:41] VITALS: BP 127/75; PULSE 82; RESP 18; TEMP 98.1
--- NOTE | 2022-05-14 16:07 | P.DS ---
Providers Date of admission: 05/08/22 13:16 Expected date of discharge: 05/14/22 Attending physician: Rakesh Gonzalez Consults: 05/08/22 19:31 Consult Physician Routine Consulting Provider: Felisa Romo Consult Reason/Comments: medical management Do you want consulting provider notified?: Yes 05/08/22 19:43 Consult Physician Routine Consulting Provider: Luda Fernandez Consult Reason/Comments: periprosthetic joint infection Do you want consulting provider notified?: Yes 05/10/22 11:21 Consult Physician Routine Consulting Provider: Pipo Pizano Consult Reason/Comments: anemia Do you want consulting provider notified?: Yes Primary care physician: Felisa [facility] Course: This patient is a 62- year old female who has been followed in the office by Dr. Gonzalez for ongoing left knee pain. Patient underwent a left total knee replacement by Dr. Calles less than 2 years ago. Upon presentation to the office, patient had loosening of both the femoral and tibial component on x-ray. Patient failed to follow-up in the office for months. During that time she was admitted to the hospital with bacteremia and was treated with long-term antibiotics via a PICC line. Following discharge, she presented to the office with a large effusion. Her knee was aspirated and resulted with over 5000 white blood cells. Her ESR and CRP were also elevated. 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 Gonzalez. Patient underwent a removal of prosthesis left knee TKA, I&D, and insertion of articulating spacer on 05/08/22. Vital signs and labs are stable on post-operative day #6. Internal medicine and infectious disease has also been following the patient. Patient has received a PICC line and will be receiving IV antibiotics as an outpatient. Intraoperative cultures are negative at this time. Today is postoperative day #6. The patient is seen and examined bedside. She states the pain in her left knee is well controlled at this time. She is ambulating with a cane with minimal assistance. She is comfortable returning home today. She denies chest pain, shortness breath, nausea, vomiting, fevers, chills. On examination, patient is sitting up in the bedside chair in no apparent distress. She is alert and oriented 3. On inspection of the left knee, there is a clean, dry, and intact Prevena wound vac in place. Wound vac has a good seal at this time. Motor and sensory function is intact of the left lower extremity. The left lower extremity is warm and well perfused. Calf non-tender. Patient is discharged home today, pending medical clearance. Please see med rec for accurate list of discharge medications. She should follow-up tomorrow in the office for a dressing change and an incision check. Plan - Discharge Summary Discharge Rx Participant: No New Discharge Prescriptions: New oxyCODONE HCL/ACETAMINOPHEN [Percocet 5-325 mg] 1 tab PO Q6HR PRN 7 Days #20 tab PRN Reason: Pain No Action OLANZapine [ZyPREXA] 20 mg PO HS Metoprolol Succinate (ER) [Toprol XL] 100 mg PO PC-SUPPER lisinopriL [Zestril] 5 mg PO PC-SUPPER clonazePAM 1 mg PO HS Venlafaxine HCl [Effexor XR] 300 mg PO PC-SUPPER Insulin Aspart [NovoLOG Flexpen] 25 units SQ AC-TID Albuterol Inhaler [Ventolin Hfa Inhaler] 1 puff INHALATION RT-QID PRN 30 Days #8 gm PRN Reason: Shortness Of Breath Levothyroxine Sodium 112 mg PO PC-SUPPER metFORMIN HCL [Glucophage] 100 mg PO PC-SUPPER clonazePAM 1 mg PO DAILY PRN PRN Reason: Anxiety Cephalexin [Keflex] 500 mg PO Q8HR Empagliflozin [Jardiance] 10 mg PO DAILY traMADol HCL 100 mg PO TID PRN PRN Reason: Pain Fluticasone Nasal Camas [Flonase Nasal Camas] 2 spray EA NOSTRIL DAILY 30 Days #1 gm Acetaminophen Tab [Tylenol] 650 mg PO Q6HR PRN tab PRN Reason: Mild Pain Or Fever > 100.5 Warfarin [Coumadin] 10 mg PO DAILY 30 Days #30 tab Insulin Glargine,Hum.rec.anlog [Basaglar Kwikpen U-100] 25 unit SQ W/SUPPER Discharge Medication List Metoprolol Succinate (ER) [Toprol XL] 100 mg PO PC-SUPPER 02/02/21 [History] OLANZapine [ZyPREXA] 20 mg PO HS 02/02/21 [History] Venlafaxine HCl [Effexor XR] 300 mg PO PC-SUPPER 02/02/21 [History] clonazePAM 1 mg PO HS 02/02/21 [History] lisinopriL [Zestril] 5 mg PO PC-SUPPER 02/02/21 [History] Empagliflozin [Jardiance] 10 mg PO DAILY 09/19/21 [History] traMADol HCL 100 mg PO TID PRN 01/17/22 [History] Insulin Aspart [NovoLOG Flexpen] 25 units SQ AC-TID 03/02/22 [History] Acetaminophen Tab [Tylenol] 650 mg PO Q6HR PRN tab 03/12/22 [Rx] Albuterol Inhaler [Ventolin Hfa Inhaler] 1 puff INHALATION RT-QID PRN 30 Days #8 gm 03/12/22 [Rx] Fluticasone Nasal Camas [Flonase Nasal Camas] 2 spray EA NOSTRIL DAILY 30 Days #1 gm 03/12/22 [Rx] Warfarin [Coumadin] 10 mg PO DAILY 30 Days #30 tab 03/12/22 [Rx] Levothyroxine Sodium 112 mg PO PC-SUPPER 04/24/22 [History] metFORMIN HCL [Glucophage] 100 mg PO PC-SUPPER 04/24/22 [History] clonazePAM 1 mg PO DAILY PRN 05/01/22 [History] Insulin Glargine,Hum.rec.anlog [Basaglar Kwikpen U-100] 25 unit SQ W/SUPPER 05/07/22 [History] Cephalexin [Keflex] 500 mg PO Q8HR 05/08/22 [History] oxyCODONE HCL/ACETAMINOPHEN [Percocet 5-325 mg] 1 tab PO Q6HR PRN 7 Days #20 tab 05/11/22 [Rx] Follow up Appointment(s)/Referral(s): [facility], [NON-STAFF] - 1-2 Days MID,Infusion [NON-STAFF] - 1 Week Felisa Romo MD [Primary Care Provider] - 1 Week (office closed at time of discharge. Please call to schedule appointment ) Luda Fernandez MD [STAFF PHYSICIAN] - 1 Week () Rakesh Gonzalez MD [Medical Doctor] - 05/15/22 9:05 am (With Estefania) Patient Instructions/Handouts: [facility] Closed Inc[facility] Management System Discharge Instructions, Negative Pressure Wound Therapy (DC), How to Care for Your PICC (Peripherally Inserted Central Catheter) (DC), PICC (Peripherally Inserted Central Catheter) (DC) Activity/Diet/Wound Care/Special Instructions: Weight bear as tolerated on operative leg with a walker. Keep Prevena wound vac in place. Resume Coumadin as directed by internal medicine for blood clot prevention. Pain medication as needed. IV antibiotics per infectious disease. Follow-up in the office on Saturday05/15/22 for wound vac removal. Call the office with any questions or concerns, Discharge Disposition: HOME WITH HOME HEALTH SERVICES
[2022-05-14 16:28] LABS: Glucose,Whole Blood 168 mg/dL (70-110)
--- NOTE | 2022-05-14 16:38 | P.PN ---
Objective - Vital Signs Vital signs: Vital Signs Temp 98.1 F 05/14/22 14:00 Pulse 82 05/14/22 14:00 Resp 18 05/14/22 14:00 BP 127/75 05/14/22 14:00 Pulse Ox 96 05/14/22 14:00 FiO2 Intake & Output 05/13/22 05/14/22 05/14/22 18:59 06:59 18:59 Intake Total 290 Balance 290 Intake: Intake, IV Titration 290 Amount Lactated Ringers 1,000 ml 240 @ 20 mls/hr IV .Q24H [facility] Rx#:[id number] ceFAZolin 2 gm In Sodium 50 Chloride 0.9% 50 ml @ 100 mls/hr IVPB Q8HR [facility] Rx# :[id number] Other: Voiding Method Toilet Toilet # Voids 2 - Exam - Constitutional General appearance: cooperative, no acute distress - EENT Eyes: EOMI ENT: hearing grossly normal - Neck Neck: normal ROM - Respiratory Respiratory: bilateral: diminished - Cardiovascular Rhythm: regularly irregular - Gastrointestinal General gastrointestinal: normal bowel sounds - Integumentary Integumentary: pale - Musculoskeletal Musculoskeletal: strength equal bilaterally - Psychiatric Psychiatric: A&O x's 3 - Labs CBC & Chem 7: 05/14/22 05:22 05/14/22 05:22 Labs: Abnormal Lab Results - Last 24 Hours (Table) 05/13/22 05/13/22 05/14/22 Range/Units 16:52 20:43 05:22 WBC (4.50-10.00) X 10*3/uL RBC (4.10-5.20) X 10*6/uL Hgb (12.0-15.0) g/dL Hct (37.2-46.3) % Immature Gran # (0.00-0.04) X 10*3/uL Lymphocytes # (0.90-5.00) X 10*3/uL PT 14.6 H (9.9-11.9) sec INR 1.35 H (0.90-1.11) Sodium (135-145) mmol/L BUN/Creatinine Ratio (12.00-20.00) Ratio Glucose (70-110) mg/dL POC Glucose (mg/dL) 139 H 169 H (70-110) mg/dL Total Bilirubin (0.30-1.20) mg/dL Total Protein (6.2-8.2) g/dL Albumin (3.8-4.9) g/dL 05/14/22 05/14/22 05/14/22 Range/Units 05:22 05:22 06:51 WBC 3.74 L (4.50-10.00) X 10*3/uL RBC 2.80 L (4.10-5.20) X 10*6/uL Hgb 7.7 L (12.0-15.0) g/dL Hct 24.1 L (37.2-46.3) % Immature Gran # 0.11 H (0.00-0.04) X 10*3/uL Lymphocytes # 0.64 L (0.90-5.00) X 10*3/uL PT (9.9-11.9) sec INR (0.90-1.11) Sodium 134 L (135-145) mmol/L BUN/Creatinine Ratio 21.86 H (12.00-20.00) Ratio Glucose 179 H (70-110) mg/dL POC Glucose (mg/dL) 191 H (70-110) mg/dL Total Bilirubin 0.20 L (0.30-1.20) mg/dL Total Protein 5.6 L (6.2-8.2) g/dL Albumin 3.6 L (3.8-4.9) g/dL 05/14/22 05/14/22 Range/Units 11:18 16:26 WBC (4.50-10.00) X 10*3/uL RBC (4.10-5.20) X 10*6/uL Hgb (12.0-15.0) g/dL Hct (37.2-46.3) % Immature Gran # (0.00-0.04) X 10*3/uL Lymphocytes # (0.90-5.00) X 10*3/uL PT (9.9-11.9) sec INR (0.90-1.11) Sodium (135-145) mmol/L BUN/Creatinine Ratio (12.00-20.00) Ratio Glucose (70-110) mg/dL POC Glucose (mg/dL) 174 H 168 H (70-110) mg/dL Total Bilirubin (0.30-1.20) mg/dL Total Protein (6.2-8.2) g/dL Albumin (3.8-4.9) g/dL Assessment and Plan (1) Normocytic anemia Narrative/Plan: This is most likely secondary to the acute on chronic inflammation resulting in multiple antibiotics and bone marrow supporession. This should recover once the underlying condition is resolved. Additional work-up to assess for other underlying causes has been ordered Iron studies do show evidence of iron deficiency - GI work-up She states she did have one day of vaginal bleeding, however has not returned, not 100% if potential hemorroidal Evidence og iron deficiency and IV iron given Current Visit: Yes Status: Acute Code(s): D64.9 - ANEMIA, UNSPECIFIED SNOMED Code(s): 095559999 (2) Leukopenia Current Visit: Yes Status: Acute Code(s): D72.819 - DECREASED WHITE BLOOD CELL COUNT, UNSPECIFIED SNOMED Code(s): 91142796 (3) Prosthetic joint infection Current Visit: Yes Status: Acute Code(s): T84.50XA - INFECT/INFLM REACTION DUE TO UNSP INT JOINT PROSTH, INIT SNOMED Code(s): 774150630 (4) Bacteremia Current Visit: No Status: Acute Code(s): R78.81 - BACTEREMIA SNOMED Code(s): 7239800 Plan: CBC in am If concern of active infection, joint is still present then PO iron at this time Add B12 She can follow-up with hematology 4-6 after infection resolved to assess for need og parental iron
--- NOTE | 2022-05-14 17:29 | P.PN ---
Subjective Progress Note Date: 05/14/22 This is a 62-year-old female patient who presented for an elective left knee arthroplasty with complex removal of prosthetic, fabrication insertion of nonbiodegradable drug delivery implant and irrigation and debridement of subcutaneous tissue muscle and bone and thigh. Patient has a complex medical history including chronic joint infection, coronary artery disease, aortic valve replacement which is maintained on Coumadin. Coumadin has been held since last Saturday. Patient was recently treated with IV antibiotics for bacteremia. Additional medical history includes diabetes mellitus type 2, GERD, hiatal retention, sleep apnea and thyroid disorder. Per orthopedic service is patient tender weight-bear as tolerated to left leg is okay to resume Coumadin for DVT prophylaxis. Patient will need PICC line in the antibiotics for 6 weeks infectious disease services have been consulted. PICC line has been ordered. CBC CMP and INR has been ordered. Pharmacy to dose Coumadin for mechanical valve. At this time patient is sitting comfortably in chair. Patient has been up ambulating with physical therapy. Patient denies chest pain or shortness breath. Patient denies nausea vomiting or diarrhea. Patient denies any urinary burning or frequency On 05/10/2022 patient was seen and examined on the medical floor, she is alert and oriented 3. Patient remains on IV Vanco and cefepime. PICC line is in place awaiting infectious disease input in regards to home IV antibiotics. Awaiting final cultures. Oncology service is CONSULTED for anemia. Awaiting input. Hemoglobin today 8.2. At this time patient denies chest pain or shortness of breath. Patient denies nausea vomiting or diarrhea. Patient denies any urinary burning or frequency. Wound VAC is in place. INR remains low at 0.98. Patient remains on bridging of Lovenox. Pharmacy to dose Coumadin. On 05/11/2022 patient is alert and oriented 3. Patient remains on IV Vanco and cefepime. PICC line is in place awaiting infectious disease input in regards to home IV antibiotics. Awaiting final cultures. Oncology service is CONSULTED for anemia. Awaiting input. Hemoglobin today 8.2. At this time patient denies chest pain or shortness of breath. Patient denies nausea vomiting or diarrhea. Patient denies any urinary burning or frequency. Wound VAC is in place. INR remains low at 1.10. Patient remains on bridging of Lovenox. Pharmacy to dose Coumadin On 05/12/2022 patient was seen and examined on the medical floor she is alert and oriented 3 in no apparent distress there is no fever or chills no headache or dizziness no chest pain no shortness of breath no cough no nausea or vomiting no abdominal pain no diarrhea and no urinary symptoms. At this time patient has a PICC line inserted, we are awaiting culture results for IV antibiotic at discharge, patient also has a mechanical valve, she is maintained on Coumadin, her INR is still subtherapeutic at 1.14, target is 2.5-3.5 she is maintained on subcu Lovenox 90 mg twice a day, will continue with current management will recheck labs in a.m. On 05/13/2022 patient is alert and oriented 3 in no apparent distress, she is complaining of some pain in the left knee area otherwise she denies any complaints, there is no fever or chills no headache or dizziness no chest pain no shortness of breath no cough no nausea or vomiting no abdominal pain no diarrhea and no urinary symptoms. At this time patient has a PICC line inserted, we are awaiting culture results for IV antibiotic at discharge, patient also has a mechanical valve, she is maintained on Coumadin, her INR is still subtherapeutic at 1.14, target is 2.5-3.5 she is maintained on subcu Lovenox 90 mg twice a day, will continue with current management will recheck labs in a.m. On 05/14/2022 patient is alert and oriented 3 in no apparent distress, she is complaining of some pain in the left knee area otherwise she denies any complaints, there is no fever or chills no headache or dizziness no chest pain no shortness of breath no cough no nausea or vomiting no abdominal pain no diarrhea and no urinary symptoms. At this time patient has a PICC line inserted, we are awaiting culture results for IV antibiotic at discharge, patient also has a mechanical valve, she is maintained on Coumadin, her INR is still subtherapeutic at 1.35, target is 2.5-3.5 she is maintained on subcu Lovenox 90 mg twice a day, will continue with current management will recheck labs in a.m. Patient is scheduled to be discharged home today, her INR is still subtherapeutic, she was given a prescription for Lovenox 90 mg twice daily for 3 more days, she was instructed on the use of Lovenox She was told to take Coumadin 12.5 mg daily for 3 more days then resume 10 mg daily Patient will be seen in our office in 2-3 days for checking INR Antibiotic were changed by Dr. Fernandez Rocephin 2 g IV every 24 hours and arrangement were done for outpatient IV antibiotics Objective - Vital Signs Vital signs: Vital Signs Temp 98.1 F 05/14/22 14:00 Pulse 82 05/14/22 14:00 Resp 18 05/14/22 14:00 BP 127/75 05/14/22 14:00 Pulse Ox 96 05/14/22 14:00 FiO2 Intake & Output 05/13/22 05/14/22 05/14/22 18:59 06:59 18:59 Intake Total 290 Balance 290 Intake: Intake, IV Titration 290 Amount Lactated Ringers 1,000 ml 240 @ 20 mls/hr IV .Q24H [facility] Rx#:[id number] ceFAZolin 2 gm In Sodium 50 Chloride 0.9% 50 ml @ 100 mls/hr IVPB Q8HR [facility] Rx# :[id number] Other: Voiding Method Toilet Toilet # Voids 2 - Exam Head normocephalic Neck supple Lungs clear to auscultation bilaterally no wheezing or crackles Heart regular rate and rhythm S1-S2, no rub or gallop Abdomen is soft nontender nondistended positive bowel sounds no hepatosplenomegaly Extremities no edema left knee dressing clean dry and intact Neuro alert and orientated to 3 - Labs CBC & Chem 7: 05/14/22 05:22 05/14/22 05:22 Labs: Abnormal Lab Results - Last 24 Hours (Table) 05/13/22 05/14/22 05/14/22 Range/Units 20:43 05:22 05:22 WBC 3.74 L (4.50-10.00) X 10*3/uL RBC 2.80 L (4.10-5.20) X 10*6/uL Hgb 7.7 L (12.0-15.0) g/dL Hct 24.1 L (37.2-46.3) % Immature Gran # 0.11 H (0.00-0.04) X 10*3/uL Lymphocytes # 0.64 L (0.90-5.00) X 10*3/uL PT 14.6 H (9.9-11.9) sec INR 1.35 H (0.90-1.11) Sodium (135-145) mmol/L BUN/Creatinine Ratio (12.00-20.00) Ratio Glucose (70-110) mg/dL POC Glucose (mg/dL) 169 H (70-110) mg/dL Total Bilirubin (0.30-1.20) mg/dL Total Protein (6.2-8.2) g/dL Albumin (3.8-4.9) g/dL 05/14/22 05/14/22 05/14/22 Range/Units 05:22 06:51 11:18 WBC (4.50-10.00) X 10*3/uL RBC (4.10-5.20) X 10*6/uL Hgb (12.0-15.0) g/dL Hct (37.2-46.3) % Immature Gran # (0.00-0.04) X 10*3/uL Lymphocytes # (0.90-5.00) X 10*3/uL PT (9.9-11.9) sec INR (0.90-1.11) Sodium 134 L (135-145) mmol/L BUN/Creatinine Ratio 21.86 H (12.00-20.00) Ratio Glucose 179 H (70-110) mg/dL POC Glucose (mg/dL) 191 H 174 H (70-110) mg/dL Total Bilirubin 0.20 L (0.30-1.20) mg/dL Total Protein 5.6 L (6.2-8.2) g/dL Albumin 3.6 L (3.8-4.9) g/dL 05/14/22 Range/Units 16:26 WBC (4.50-10.00) X 10*3/uL RBC (4.10-5.20) X 10*6/uL Hgb (12.0-15.0) g/dL Hct (37.2-46.3) % Immature Gran # (0.00-0.04) X 10*3/uL Lymphocytes # (0.90-5.00) X 10*3/uL PT (9.9-11.9) sec INR (0.90-1.11) Sodium (135-145) mmol/L BUN/Creatinine Ratio (12.00-20.00) Ratio Glucose (70-110) mg/dL POC Glucose (mg/dL) 168 H (70-110) mg/dL Total Bilirubin (0.30-1.20) mg/dL Total Protein (6.2-8.2) g/dL Albumin (3.8-4.9) g/dL Assessment and Plan Assessment: 1. S/P elective left knee arthroplasty with complex removal of prosthetic, fabrication insertion of nonbiodegradable drug delivery implant and irrigation and debridement of subcutaneous tissue muscle and bone and thigh. 2. History of chronic joint infection with prostatic 3. Recent Bacteremia with IV antibiotics. 4. History of aortic valve replacement with mechanical valve. Patient's C brianna has been on hold. Okay to resume per orthopedic services 5. History of insulin-dependent diabetes mellitus type 2 6. History of essential hypertension 7. History of hyperlipidemia 8. History of hypothyroidism 9. History of bipolar disorder and schizoaffective disorder Thank you for this consultation we will continue to follow patient closely Pharmacy to dose Coumadin resumed CBC, CMP and PT/INR ordered PICC line ordered per orthopedic recommendation. Patient will need 6 weeks of IV antibiotics Infectious disease service is consulted
[2022-05-14] MEDS ORDERED: WARFARIN 5 MG TAB PO ONE (18:00)
== END 2022-05-14 17:07 | disposition home health service (06) | DRG 468 ==
LOC: 2ORMAIN 13:16 → 4SSUR 19:30
PROVIDERS: ADMIT Orthopaedic Surgery; ATTEND Orthopaedic Surgery
PROC: 0SBD0ZZ Excision of Left Knee Joint, Open Approach (ICD-10-PCS; principal; 2022-05-08 15:10)
PROC: 0SPD0JZ Removal of Synthetic Substitute from Left Knee Joint, Open Approach (ICD-10-PCS; principal; 2022-05-08 15:10)
PROC: 0SRD0EZ Replacement of Left Knee Joint with Articulating Spacer, Open Approach (ICD-10-PCS; principal; 2022-05-08 15:10)
PROC: 0QBH0ZZ Excision of Left Tibia, Open Approach (ICD-10-PCS; principal; 2022-05-08 15:10)
PROC: 0QBC0ZZ Excision of Left Lower Femur, Open Approach (ICD-10-PCS; principal; 2022-05-08 15:10)
PROC: 02HV33Z Insertion of Infusion Device into Superior Vena Cava, Percutaneous Approach (ICD-10-PCS; 2022-05-09)
DX: T84.54XA Infection and inflammatory reaction due to internal left knee prosthesis, initial encounter (principal); Y79.2 Prosthetic and other implants, materials and accessory orthopedic devices associated with adverse incidents; D72.819 Decreased white blood cell count, unspecified; E03.9 Hypothyroidism, unspecified; E11.42 Type 2 diabetes mellitus with diabetic polyneuropathy; Z79.4 Long term (current) use of insulin; D50.9 Iron deficiency anemia, unspecified; E78.5 Hyperlipidemia, unspecified; F25.9 Schizoaffective disorder, unspecified; F31.9 Bipolar disorder, unspecified; I10 Essential (primary) hypertension; I25.10 Atherosclerotic heart disease of native coronary artery without angina pectoris; M17.12 Unilateral primary osteoarthritis, left knee; Z79.01 Long term (current) use of anticoagulants; K21.9 Gastro-esophageal reflux disease without esophagitis; Z79.2 Long term (current) use of antibiotics; Z79.84 Long term (current) use of oral hypoglycemic drugs; Z79.899 Other long term (current) drug therapy; Z95.2 Presence of prosthetic heart valve; Z96.652 Presence of left artificial knee joint; Z87.01 Personal history of pneumonia (recurrent); H92.09 Otalgia, unspecified ear; M25.462 Effusion, left knee; Z98.890 Other specified postprocedural states; Z90.49 Acquired absence of other specified parts of digestive tract; Z81.1 Family history of alcohol abuse and dependence; Z81.8 Family history of other mental and behavioral disorders; H53.8 Other visual disturbances; K59.00 Constipation, unspecified; Z88.5 Allergy status to narcotic agent; Z88.8 Allergy status to other drugs, medicaments and biological substances; Z98.891 History of uterine scar from previous surgery
CPT/HCPCS: 36573; 80053; 80202; 82607; 82728; 82746; 82784; 83036; 83540; 83550; 83615; 83883; 83921; 84165; 85025; 85045; 85610; 85652; 86038; 86334; 86431; 87070; 87075; 87205; 94640; 94760

== ENCOUNTER 2022-06-17 04:46 | Emergency (ER) | payer MEDICARE, OTHER ==
[2022-06-17 04:55] VITALS: TEMP 98.1
[2022-06-17 06:29] LABS: Basophils # (A) 0.1 k/uL (0-0.2); Basophils % (A) 1 %; Eosinophils # (A) 0.2 k/uL (0-0.7); Eosinophils % (A) 2 %; HCT 34.6 % (34.0-46.0); HGB 11.3 gm/dL (11.4-16.0); Lymphocytes # (A) 0.9 k/uL (1.0-4.8); Lymphocytes % (A) 11 %; MCH 26.8 pg (25.0-35.0); MCHC 32.8 g/dL (31.0-37.0); MCV 81.9 fL (80.0-100.0); Mean Platelet Volume 6.7; Monocytes # (A) 0.5 k/uL (0-1.0); Monocytes % (A) 6 %; Neutrophils # (A) 6.1 k/uL (1.3-7.7); Neutrophils % (A) 78 %; Platelet Count 315 k/uL (150-450); RBC 4.22 m/uL (3.80-5.40); RDW 15.1 % (11.5-15.5); WBC 7.8 k/uL (3.8-10.6)
[2022-06-17 06:38] LABS: ALT 19 U/L (4-34); AST 33 U/L (14-36); African American GFR (CKD) >90 (>60 ml/min/1.73 sqM); Albumin 4.7 g/dL (3.5-5.0); Alkaline Phosphatase 105 U/L (38-126); Anion Gap 9 mmol/L; Blood Urea Nitrogen 11 mg/dL (7-17); Calcium 9.4 mg/dL (8.4-10.2); Carbon Dioxide 23 mmol/L (22-30); Chloride 95 mmol/L (98-107); Glucose 166 mg/dL (74-99); Non-African American GFR(CKD) >90 (>60 ml/min/1.73 sqM); Sodium 127 mmol/L (137-145); Total Bilirubin 0.5 mg/dL (0.2-1.3); Total Protein 7.5 g/dL (6.3-8.2)
--- NOTE | 2022-06-17 06:48 | ED ---
Psych HPI - General Chief Complaint: Psychiatric Symptoms Stated Complaint: Mental Health Time Seen by Provider: 06/17/22 06:08 Source: patient, police, EMS, RN notes reviewed Mode of arrival: EMS Limitations: no limitations - History of Present Illness Initial Comments: This a 62-year-old female presents emergency Department with her complaint of back pain, family complaint of needing psychiatric evaluation. Patient states that she was "unconscious" 2 days ago when 3 has were carrying her out and dropped her on steps. She complains of low back pain from this. Patient has multiple flat affect he is but she denies any fevers chills chest pain shortness of breath head injury, suicidal ideation, has homicidal ideation. Denies any alcohol or drug use. - Related Data Home Medications Medication Instructions Recorded Confirmed Metoprolol Succinate (ER) [Toprol 100 mg PO PC-SUPPER 02/02/21 06/08/22 XL] OLANZapine [ZyPREXA] 20 mg PO HS 02/02/21 06/08/22 Venlafaxine HCl [Effexor XR] 300 mg PO PC-SUPPER 02/02/21 06/08/22 clonazePAM 1 mg PO HS 02/02/21 06/08/22 lisinopriL [Zestril] 5 mg PO PC-SUPPER 02/02/21 06/08/22 Empagliflozin [Jardiance] 10 mg PO DAILY 09/19/21 06/08/22 metFORMIN HCL [Glucophage] 100 mg PO PC-SUPPER 04/24/22 06/08/22 clonazePAM 1 mg PO DAILY PRN 05/01/22 06/08/22 Acetaminophen [Tylenol Extra 500 mg PO DIRECTED PRN 06/08/22 06/08/22 Strength] Albuterol Inhaler [Ventolin Hfa 1 puff INHALATION QID 06/08/22 06/08/22 Inhaler] HYDROcodone/APAP 10-325MG [[place] 1 tab PO DIRECTED PRN 06/08/22 06/08/22 10-325] Levothyroxine Sodium 125 mcg PO PC-SUPPER 06/08/22 06/08/22 Long Acting Insulin (? Name) 20 units SQ PC-SUPPER 06/08/22 06/08/22 cefTRIAXone SODIUM [Ceftriaxone] 2 gm IV DAILY 06/08/22 06/08/22 Previous Rx's Medication Instructions Recorded Fluticasone Nasal [place] [Flonase 2 spray EA NOSTRIL DAILY 30 Days 03/12/22 Nasal [place]] #1 gm Warfarin [Coumadin] 10 mg PO DAILY 30 Days #30 tab 03/12/22 Allergies Allergy/AdvReac Type Severity Reaction Status Date / Time lactose Allergy Unknown Diarrhea Verified 06/08/22 12:48 codeine AdvReac UPSET Verified 06/08/22 12:48 STOMACH Review of Systems ROS Statement: Those systems with pertinent positive or pertinent negative responses have been documented in the HPI. ROS Other: All systems not noted in ROS Statement are negative. Past Medical History Past Medical History: Diabetes Mellitus, GERD/Reflux, Hyperlipidemia, Hypertension, Pneumonia, Sleep Apnea/CPAP/BIPAP, Thyroid Disorder Additional Past Medical History / Comment(s): IDDM type II, neuropathy bilateral feet, rheumatic fever at age 11yrs/scar tissue on valve, aortic valve replacement (mechanical), pt states she had a blood clot around aortic valve prior to surgery, POLLO but does not tolerate Cpap, constipation, L ovarian cyst, hypothyroid., states infection left knee. History of Any Multi-Drug Resistant Organisms: None Reported Date of last positivie culture/infection: 2013 Past Surgical History: Appendectomy, Cardiac Valve Replacement, Section, Joint Replacement, Orthopedic Surgery Additional Past Surgical History / Comment(s): BLANCA, aortic valve replacement (mechanical), L total knee arthroplasty, L foot bunionectomy, EGDs, colonoscopy. Past Anesthesia/Blood Transfusion Reactions: Previous Problems w/ Anesthesia Additional Past Anesthesia/Blood Transfusion Reaction / Comment(s): Stopped breathing when a EGD was done Past Alcohol Use History: None Reported Additional Past Alcohol Use History / Comment(s): . - Past Family History Father Additional Family Medical History / Comment(s): Bipolar and ETOH abuse. Mother Additional Family Medical History / Comment(s): ETOH abuse. General Exam Limitations: no limitations General appearance: alert, in no apparent distress Head exam: Present: atraumatic, normocephalic, normal inspection Eye exam: Present: normal appearance, PERRL, EOMI. Absent: scleral icterus, conjunctival injection, periorbital swelling ENT exam: Present: normal exam, normal oropharynx, mucous membranes moist Neck exam: Present: normal inspection, full ROM. Absent: tenderness, meningismus, lymphadenopathy Respiratory exam: Present: normal lung sounds bilaterally. Absent: respiratory distress, wheezes, rales, rhonchi, stridor Cardiovascular Exam: Present: regular rate, normal rhythm, normal heart sounds. Absent: systolic murmur, diastolic murmur, rubs, gallop, clicks GI/Abdominal exam: Present: soft, normal bowel sounds. Absent: distended, tenderness, guarding, rebound, rigid Extremities exam: Present: full ROM, normal capillary refill. Absent: normal inspection (Recent surgical scar left knee), tenderness, pedal edema, joint swelling, calf tenderness Back exam: Present: full ROM, tenderness, paraspinal tenderness, vertebral tenderness Neurological exam: Present: alert, oriented X3, CN II-XII intact Skin exam: Present: warm, dry, intact, normal color. Absent: rash Course Vital Signs 06/17/22 04:49 Temperature 98.1 F Pulse Rate 81 Respiratory 16 Rate Blood Pressure 114/71 O2 Sat by Pulse 98 Oximetry Medical Decision Making - Medical Decision Making 62-year-old presented for back pain complaints x-rays are negative for acute fracture. Patient is on chronic pain meds. Patient lab work revealed mild hyponatremia she was given fluid bolus. Patient's family wanted her to be evaluated by psychiatric services though she is not suicidal or homicidal she does have some flight of ideas palpation does not want stay patient has not petition. She'll be discharged in stable condition with return parameters discussed. - Lab Data Result diagrams: 06/17/22 06:23 06/17/22 06:23 Lab Results 06/17/22 06/17/22 06/17/22 Range/Units 06:23 06:23 06:50 WBC 7.8 (3.8-10.6) k/uL RBC 4.22 (3.80-5.40) m/uL Hgb 11.3 L (11.4-16.0) gm/dL Hct 34.6 (34.0-46.0) % MCV 81.9 (80.0-100.0) fL MCH 26.8 (25.0-35.0) pg MCHC 32.8 (31.0-37.0) g/dL RDW 15.1 (11.5-15.5) % Plt Count 315 (150-450) k/uL MPV 6.7 Neutrophils % 78 % Lymphocytes % 11 % Monocytes % 6 % Eosinophils % 2 % Basophils % 1 % Neutrophils # 6.1 (1.3-7.7) k/uL Lymphocytes # 0.9 L (1.0-4.8) k/uL Monocytes # 0.5 (0-1.0) k/uL Eosinophils # 0.2 (0-0.7) k/uL Basophils # 0.1 (0-0.2) k/uL Sodium 127 L (137-145) mmol/L Potassium 5.0 (3.5-5.1) mmol/L Chloride 95 L (98-107) mmol/L Carbon Dioxide 23 (22-30) mmol/L Anion Gap 9 mmol/L BUN 11 (7-17) mg/dL Creatinine 0.68 (0.52-1.04) mg/dL Est GFR (CKD-EPI)AfAm >90 (>60 ml/min/1.73 sqM) Est GFR (CKD-EPI)NonAf >90 (>60 ml/min/1.73 sqM) Glucose 166 H (74-99) mg/dL Calcium 9.4 (8.4-10.2) mg/dL Total Bilirubin 0.5 (0.2-1.3) mg/dL AST 33 (14-36) U/L ALT 19 (4-34) U/L Alkaline Phosphatase 105 (38-126) U/L Total Protein 7.5 (6.3-8.2) g/dL Albumin 4.7 (3.5-5.0) g/dL Urine Color Colorless Urine Appearance Clear (Clear) Urine pH 5.5 (5.0-8.0) Ur Specific [place] 1.003 (1.001-1.035) Urine Protein Negative (Negative) Urine Glucose (UA) 4+ H (Negative) Urine Ketones Negative (Negative) Urine Blood Negative (Negative) Urine Nitrite Negative (Negative) Urine Bilirubin Negative (Negative) Urine Urobilinogen <2.0 (<2.0) mg/dL Ur Leukocyte Esterase Trace H (Negative) Urine RBC 3 (0-5) /hpf Urine WBC 4 (0-5) /hpf Ur Squamous Epith Cells <1 (0-4) /hpf Urine Bacteria Rare H (None) /hpf Urine Opiates Screen Detected H (NotDetected) Ur Oxycodone Screen Not Detected (NotDetected) Urine Methadone Screen Not Detected (NotDetected) Ur Propoxyphene Screen Not Detected (NotDetected) Ur Barbiturates Screen Not Detected (NotDetected) U Tricyclic Antidepress Not Detected (NotDetected) Ur Phencyclidine Scrn Not Detected (NotDetected) Ur Amphetamines Screen Not Detected (NotDetected) U Methamphetamines Scrn Not Detected (NotDetected) U Benzodiazepines Scrn Not Detected (NotDetected) Urine Cocaine Screen Not Detected (NotDetected) U Marijuana (THC) Screen Not Detected (NotDetected) Disposition Clinical Impression: Bipolar disorder, Back pain Disposition: HOME SELF-CARE Condition: Stable Instructions (If sedation given, give patient instructions): Acute Low Back Pain (ED) Additional Instructions: Please return to the Emergency Department if symptoms worsen or any other concerns. Is patient prescribed a controlled substance at d/c from ED?: No Referrals: Felisa Romo MD [Primary Care Provider] - 1-2 days Time of Disposition: 08:14
[2022-06-17] MEDS ORDERED: KETOROLAC 15 MG/ML 1 ML VIAL IVP STA (06:53)
[2022-06-17] MEDS ORDERED: SODIUM CHLORIDE 0.9% 1,000 ML IV ONE (07:11)
--- NOTE | 2022-06-17 07:28 | XR ---
EXAMINATION TYPE: XR lumbar spine 2 or 3V DATE OF EXAM: 06/17/2022 7:13 AM INDICATION: Patient age:Female; 62 years old; Reason for study: pain; COMPARISON: CT abdomen pelvis 03/12/2022. TECHNIQUE: Frontal, lateral and coned in L5-S1 lateral views of the spine. FINDINGS: No evidence of any acute osseous pathology. No evidence of loss of vertebral body height i s seen. There is normal alignment of the lumbar vertebral bodies. 5 nonrib-bearing lumbar type verteb ral bodies identified. Mild degenerative disc disease with disc space narrowing, endplate sclerosis, and anterior osteophytosis involving the lower lumbar spine most pronounced at L2-L3. Vascular sclero sis. IMPRESSION: * No acute process. * MILD degenerative disc disease.
[2022-06-17 07:30] LABS: Appearance,Urine Clear (Clear); Bacteria,Urine Rare /hpf; Bilirubin,Urine Negative (Negative); Blood,Urine Negative (Negative); Color,Urine Colorless; Glucose,Urine (UA) 4+ (Negative); Ketones,Urine Negative (Negative); Leukocyte Esterase,Urine Trace (Negative); Nitrite,Urine Negative (Negative); PH, Urine 5.5 (5.0-8.0); Protein,Urine Negative (Negative); RBC,Urine 3 /hpf (0-5); Specific Gravity,Urine 1.003 (1.001-1.035); Squamous Epithelial Cell,Urine <1 /hpf (0-4); Urobilinogen,Urine <2.0 mg/dL (<2.0); WBC,Urine 4 /hpf (0-5)
[2022-06-17 08:08] LABS: Amphetamine Screen,Urine Not Detected (NotDetected); Barbiturate Screen,Urine Not Detected (NotDetected); Benzodiazepines Screen,Urine Not Detected (NotDetected); Cocaine Screen,Urine Not Detected (NotDetected); Methadone Screen, Urine Not Detected (NotDetected); Opiate Screen,Urine Detected (NotDetected); Oxycodone Screen, Urine Not Detected (NotDetected); Phencyclidine Screen,Urine Not Detected (NotDetected); Tricyclic Antidepressant,Urine Not Detected (NotDetected); Urn Cannabinoid Scrn Not Detected (NotDetected)
[2022-06-17 08:21] VITALS: BP 118/78; PULSE 88; RESP 18
== END 2022-06-17 08:20 | disposition home or self-care (01) ==
LOC: EC 04:46
DX: F31.9 Bipolar disorder, unspecified (principal); M54.50 Low back pain, unspecified; E11.40 Type 2 diabetes mellitus with diabetic neuropathy, unspecified; K21.9 Gastro-esophageal reflux disease without esophagitis; E78.5 Hyperlipidemia, unspecified; I10 Essential (primary) hypertension; E03.9 Hypothyroidism, unspecified; Z91.011 Allergy to milk products; Z88.5 Allergy status to narcotic agent; Z79.899 Other long term (current) drug therapy; Z79.890 Hormone replacement therapy; Z79.84 Long term (current) use of oral hypoglycemic drugs
CPT/HCPCS: 36415; 80053; 85025; 81001; 80306; 72100; 99284; 96374; J1885

== ENCOUNTER 2022-06-19 10:27 | Day surgery (SDC) | payer MEDICARE, OTHER | END 2022-06-19 11:12 | disposition home or self-care (01) | LOC: CATHCVL 10:27 | PROVIDERS: ATTEND Internal Medicine Infectious Disease | DX: M00.862 Arthritis due to other bacteria, left knee (principal); Z96.652 Presence of left artificial knee joint; E11.9 Type 2 diabetes mellitus without complications; Z88.5 Allergy status to narcotic agent; Z86.19 Personal history of other infectious and parasitic diseases; Z91.011 Allergy to milk products; Z79.899 Other long term (current) drug therapy; Z79.51 Long term (current) use of inhaled steroids; Z79.4 Long term (current) use of insulin; Z79.890 Hormone replacement therapy; Z81.1 Family history of alcohol abuse and dependence; Z81.8 Family history of other mental and behavioral disorders | CPT/HCPCS: 36410; 76937; C1751 ==

== ENCOUNTER → 2022-06-27 | Outpatient (CLI) | payer MEDICARE, OTHER ==
--- NOTE | 2022-06-27 14:36 | XR ---
EXAMINATION TYPE: XR thoracic spine complete DATE OF EXAM: 06/27/2022 COMPARISON: None HISTORY: Degenerative disc change TECHNIQUE: 3 view thoracic spine FINDINGS: Spondylosis through the mid thoracic spine. Degenerative disc changes are present. There is a scoliosis with convexity to the right centered at T6. There are 12 thoracic type vertebral bodies. Pedicles are intact. IMPRESSION: 1. Degenerative disc change through the mid thoracic spine. 2. Spondylosis. 3. Scoliosis with convexity to the right
--- NOTE | 2022-06-27 14:52 | XR ---
EXAMINATION TYPE: XR ribs bilateral DATE OF EXAM: 06/27/2022 COMPARISON: 06/27/2022 HISTORY: Fall couple months prior, pain TECHNIQUE: Two-view bilateral hips. FINDINGS: No acute fracture identified. No subacute or healing fractures are identified. No pneumotho rax is evident. IMPRESSION: 1. Bilateral ribs appear unremarkable
--- NOTE | 2022-06-27 14:53 | XR ---
EXAMINATION TYPE: XR chest 2V DATE OF EXAM: 06/27/2022 COMPARISON: 03/06/2022 INDICATION: Degenerative disc change, pain TECHNIQUE: Frontal and lateral views of the chest are obtained. FINDINGS: The heart size is normal. The pulmonary vasculature is normal. The lungs are clear. Sternotomy wires are present from previous cardiac valve surgery. IMPRESSION: 1. No acute pulmonary process.
== END | disposition home or self-care (01) ==
LOC: RADXRMAIN 12:55
PROVIDERS: ATTEND Internal Medicine
DX: M51.34 Other intervertebral disc degeneration, thoracic region (principal); G32.89 Other specified degenerative disorders of nervous system in diseases classified elsewhere
CPT/HCPCS: 71046; 71110; 72072

== ENCOUNTER 2022-06-29 03:12 | Inpatient (IN) | payer MEDICARE, MEDICAID ==
[2022-06-29] MEDS ORDERED: traMADol 50 MG TAB PO STA (04:57)
[2022-06-29] MEDS ORDERED: IBUPROFEN 600 MG TAB PO STA (04:57)
[2022-06-29] MEDS ORDERED: MAG HYDROX/AL HYDROX/SIMETH 30 ML CUP PO PRN (06:58)
[2022-06-29] MEDS ORDERED: HALOPERIDOL LACTATE 5 MG/ML 1 ML VIAL IM PRN (06:58)
[2022-06-29] MEDS ORDERED: MAGNESIUM HYDROXIDE 2,400 MG/10 ML CUP PO PRN (06:58)
[2022-06-29] MEDS ORDERED: hydrOXYzine HCL 50 MG/ML 1 ML VIAL IM PRN (07:02)
[2022-06-29 09:35] LABS: Appearance,Urine Clear (Clear); Bilirubin,Urine Negative (Negative); Blood,Urine Negative (Negative); Color,Urine Colorless; Glucose,Urine (UA) 3+ (Negative); Ketones,Urine Negative (Negative); Leukocyte Esterase,Urine Negative (Negative); Nitrite,Urine Negative (Negative); PH, Urine 5.5 (5.0-8.0); Protein,Urine 1+ (Negative); RBC,Urine <1 /hpf (0-5); Specific Gravity,Urine 1.003 (1.001-1.035); Urobilinogen,Urine <2.0 mg/dL (<2.0)
[2022-06-29 09:43] LABS: Amphetamine Screen,Urine Not Detected (NotDetected); Barbiturate Screen,Urine Not Detected (NotDetected); Benzodiazepines Screen,Urine Not Detected (NotDetected); Cocaine Screen,Urine Not Detected (NotDetected); Methadone Screen, Urine Not Detected (NotDetected); Opiate Screen,Urine Detected (NotDetected); Oxycodone Screen, Urine Not Detected (NotDetected); Phencyclidine Screen,Urine Not Detected (NotDetected); Tricyclic Antidepressant,Urine Not Detected (NotDetected); Urn Cannabinoid Scrn Not Detected (NotDetected)
--- NOTE | 2022-06-29 11:44 | ED ---
Medical Decision Making - Medical Decision Making Patient was signed out to me by Dr. Mayo him patient will be admitted for psychosis NOS - Lab Data Lab Results 06/29/22 06/29/22 06/29/22 Range/Units 09:10 09:15 09:20 Urine Color Colorless Urine Appearance Clear (Clear) Urine pH 5.5 (5.0-8.0) Ur Specific [place] 1.003 (1.001-1.035) Urine Protein 1+ H (Negative) Urine Glucose (UA) 3+ H (Negative) Urine Ketones Negative (Negative) Urine Blood Negative (Negative) Urine Nitrite Negative (Negative) Urine Bilirubin Negative (Negative) Urine Urobilinogen <2.0 (<2.0) mg/dL Ur Leukocyte Esterase Negative (Negative) Urine RBC <1 (0-5) /hpf Urine HCG, Qual (Not Detectd) Urine Opiates Screen Detected H (NotDetected) Ur Oxycodone Screen Not Detected (NotDetected) Urine Methadone Screen Not Detected (NotDetected) Ur Propoxyphene Screen Not Detected (NotDetected) Ur Barbiturates Screen Not Detected (NotDetected) U Tricyclic Antidepress Not Detected (NotDetected) Ur Phencyclidine Scrn Not Detected (NotDetected) Ur Amphetamines Screen Not Detected (NotDetected) U Methamphetamines Scrn Not Detected (NotDetected) U Benzodiazepines Scrn Not Detected (NotDetected) Urine Cocaine Screen Not Detected (NotDetected) U Marijuana (THC) Screen Not Detected (NotDetected) Coronavirus (PCR) Not Detected (Not Detectd) 06/29/22 Range/Units 09:20 Urine Color Urine Appearance (Clear) Urine pH (5.0-8.0) Ur Specific [place] (1.001-1.035) Urine Protein (Negative) Urine Glucose (UA) (Negative) Urine Ketones (Negative) Urine Blood (Negative) Urine Nitrite (Negative) Urine Bilirubin (Negative) Urine Urobilinogen (<2.0) mg/dL Ur Leukocyte Esterase (Negative) Urine RBC (0-5) /hpf Urine HCG, Qual Not Detected (Not Detectd) Urine Opiates Screen (NotDetected) Ur Oxycodone Screen (NotDetected) Urine Methadone Screen (NotDetected) Ur Propoxyphene Screen (NotDetected) Ur Barbiturates Screen (NotDetected) U Tricyclic Antidepress (NotDetected) Ur Phencyclidine Scrn (NotDetected) Ur Amphetamines Screen (NotDetected) U Methamphetamines Scrn (NotDetected) U Benzodiazepines Scrn (NotDetected) Urine Cocaine Screen (NotDetected) U Marijuana (THC) Screen (NotDetected) Coronavirus (PCR) (Not Detectd) Disposition Clinical Impression: Psychosis Disposition: ADMITTED IP TO THIS [facility] Time of Disposition: 11:44
[2022-06-29 13:22] LABS: Glucose,Whole Blood 207 mg/dL (70-110)
[2022-06-29] MEDS ORDERED: ALBUTEROL HFA INHALER INHALATION PRN (13:42)
[2022-06-29] MEDS ORDERED: clonazePAM 1 MG TAB PO PRN (13:42)
[2022-06-29 14:47] LABS: Basophils % (A) 1 %; Eosinophils # (A) 0.1 k/uL (0-0.7); Eosinophils % (A) 1 %; HCT 37.7 % (34.0-46.0); HGB 12.5 gm/dL (11.4-16.0); Lymphocytes # (A) 0.5 k/uL (1.0-4.8); Lymphocytes % (A) 11 %; MCH 27.5 pg (25.0-35.0); MCHC 33.1 g/dL (31.0-37.0); MCV 82.9 fL (80.0-100.0); Mean Platelet Volume 6.7; Monocytes # (A) 0.2 k/uL (0-1.0); Monocytes % (A) 5 %; Neutrophils # (A) 3.4 k/uL (1.3-7.7); Neutrophils % (A) 78 %; Platelet Count 279 k/uL (150-450); RBC 4.54 m/uL (3.80-5.40); RDW 15.1 % (11.5-15.5); WBC 4.3 k/uL (3.8-10.6)
[2022-06-29 15:02] LABS: ALT 21 U/L (4-34); AST 28 U/L (14-36); African American GFR (CKD) >90 (>60 ml/min/1.73 sqM); Alkaline Phosphatase 116 U/L (38-126); Anion Gap 11 mmol/L; Blood Urea Nitrogen 9 mg/dL (7-17); Calcium 9.8 mg/dL (8.4-10.2); Carbon Dioxide 25 mmol/L (22-30); Chloride 96 mmol/L (98-107); Glucose 195 mg/dL (74-99); Non-African American GFR(CKD) >90 (>60 ml/min/1.73 sqM); Potassium 4.9 mmol/L (3.5-5.1); Sodium 132 mmol/L (137-145); Total Bilirubin 0.7 mg/dL (0.2-1.3); Total Protein 7.7 g/dL (6.3-8.2)
--- NOTE | 2022-06-29 15:18 | P.HPIM ---
History of Present Illness H&P Date: 06/29/22 Linda Isaac, is a 62-year-old female who presented to [facility] emergency room with a chief complaint of psychosis with hallucinations and She was evaluated in the emergency room vital examination on presentation revealed a temperature of 98 pulse 84 respiration 18 blood pressure 170/106 pulse ox 99% on room air Laboratory data reveals a white blood count of 4.3 hemoglobin 12.5 platelet count 279 sodium 132 potassium 4.9 chloride 96 CO2 25 BUN 9 creatinine 0.65 urine analysis did not reveal any evidence of infection toxicology screen was positive for opiates patient is on pain medications due to recent knee surgery. Testing in the emergency room revealed Patient was admitted to medical floor for further evaluation and treatment Past medical history is significant for history of cardiac arrhythmia, she recently had a Holter monitor placed by [facility] Dr. Draper, she was supposed to return the monitor yesterday to the cardiology office, history of knee replacement with subsequent infection patient had the knee hardware removed and an antibiotic spacer placed in, she was maintained on IV antibiotic until a new knee was placed, will consult infectious disease in that regard, underlying history of hypertension, underlying history of hyperlipidemia, u nderlying history of hypothyroidism, underlying history of insulin-dependent diabetes mellitus, underlying history of depression with psychotic features patient was maintained on Wellbutrin and Zyprexa prior to admission Past Medical History Past Medical History: Diabetes Mellitus, GERD/Reflux, Hyperlipidemia, Hypertension, Pneumonia, Sleep Apnea/CPAP/BIPAP, Thyroid Disorder Additional Past Medical History / Comment(s): IDDM type II, neuropathy bilateral feet, rheumatic fever at age 11yrs/scar tissue on valve, aortic valve replacement (mechanical), pt states she had a blood clot around aortic valve prior to surgery, POLLO but does not tolerate Cpap, constipation, L ovarian cyst, hypothyroid., states infection left knee. History of Any Multi-Drug Resistant Organisms: None Reported Date of last positivie culture/infection: 2013 Past Surgical History: Appendectomy, Cardiac Valve Replacement, Section, Joint Replacement, Orthopedic Surgery Additional Past Surgical History / Comment(s): BLANCA, aortic valve replacement ( mechanical), L total knee arthroplasty, L foot bunionectomy, EGDs, colonoscopy. Past Anesthesia/Blood Transfusion Reactions: Previous Problems w/ Anesthesia Additional Past Anesthesia/Blood Transfusion Reaction / Comment(s): Stopped breathing when a EGD was done Smoking Status: Never smoker - Past Family History Father Additional Family Medical History / Comment(s): Bipolar and ETOH abuse. Mother Additional Family Medical History / Comment(s): ETOH abuse. Medications and Allergies Home Medications Medication Instructions Recorded Confirmed Type Metoprolol Succinate (ER) [Toprol 100 mg PO PC-SUPPER 02/02/21 06/29/22 History XL] OLANZapine [ZyPREXA] 20 mg PO HS 02/02/21 06/29/22 History Venlafaxine HCl [Effexor XR] 300 mg PO PC-SUPPER 02/02/21 06/29/22 History lisinopriL [Zestril] 5 mg PO PC-SUPPER 02/02/21 06/29/22 History Empagliflozin [Jardiance] 10 mg PO DAILY 09/19/21 06/29/22 History Warfarin [Coumadin] 10 mg PO DAILY 30 Days #30 tab 03/12/22 06/29/22 Rx metFORMIN HCL [Glucophage] 1,000 mg PO DIRECTED 04/24/22 06/29/22 History clonazePAM 1 mg PO BID PRN 05/01/22 06/29/22 History Albuterol Inhaler [Ventolin Hfa 1 puff INHALATION RT-QID PRN 06/08/22 06/29/22 History Inhaler] Levothyroxine Sodium 125 mcg PO PC-SUPPER 06/08/22 06/29/22 History Atorvastatin [Lipitor] 80 mg PO DAILY 06/29/22 06/29/22 History Cholecalciferol [Vitamin D3 (25 25 mcg PO DAILY 06/29/22 06/29/22 History Mcg = 1000 Iu)] Famotidine [Pepcid] 20 mg PO DAILY 06/29/22 06/29/22 History Fenofibrate Nanocrystallized 145 mg PO DAILY 06/29/22 06/29/22 History [Fenofibrate] Ferrous Sulfate [Feosol] 325 mg PO DAILY 06/29/22 06/29/22 History HYDROcodone/APAP 5-325MG [[place] 1 tab PO TID 06/29/22 06/29/22 History 5-325] Insulin Aspart [NovoLOG Flexpen] 25 units SQ TID-W/MEALS 06/29/22 06/29/22 History Insulin Glargine,Hum.rec.anlog 35 unit SQ DAILY 06/29/22 06/29/22 History [Basaglnadine Fariaspen U-100] Magnesium Oxide [Mag-Ox] 250 mg PO DAILY 06/29/22 06/29/22 History buPROPion XL [Wellbutrin XL] 150 mg PO DAILY 06/29/22 06/29/22 History traMADol HCL 50 mg PO BID PRN 06/29/22 06/29/22 History Allergies Allergy/AdvReac Type Severity Reaction Status Date / Time lactose Allergy Unknown Diarrhea Verified 06/29/22 13:21 codeine AdvReac UPSET Verified 06/29/22 13:21 STOMACH Physical Exam Vitals: Vital Signs Temp Pulse Pulse Resp BP BP Pulse Ox 06/29/22 13:55 98.7 F 104 H 16 182/104 06/29/22 03:15 98 F 84 18 170/106 99 Intake and Output 06/29/22 06/29/22 06/29/22 06:59 14:59 22:59 Other: Weight 92.533 kg 92.533 kg In general patient is alert and oriented x 3 in no distress HEENT head normocephalic and atraumatic Neck is supple no JVD no goiter no lymphadenopathy no carotid bruit Chest examination is clear to auscultation no crackles no wheezing Cardiac exam reveals regular heart sounds S1 and S2 no gallops no murmurs Abdomen is soft nontender no organomegaly with normal bowel sounds Extremity exam reveals no edema no cyanosis or clubbing Neurological examination reveals no gross focal deficits Results CBC & Chem 7: 06/29/22 13:56 06/29/22 13:56 Labs: Abnormal Lab Results - Last 24 Hours (Table) 06/29/22 06/29/22 06/29/22 Range/Units 09:10 09:20 13:20 Lymphocytes # (1.0-4.8) k/uL Sodium (137-145) mmol/L Chloride (98-107) mmol/L Glucose (74-99) mg/dL POC Glucose (mg/dL) 207 H (70-110) mg/dL Urine Protein 1+ H (Negative) Urine Glucose (UA) 3+ H (Negative) Urine Opiates Screen Detected H (NotDetected) 06/29/22 06/29/22 Range/Units 13:56 13:56 Lymphocytes # 0.5 L (1.0-4.8) k/uL Sodium 132 L (137-145) mmol/L Chloride 96 L (98-107) mmol/L Glucose 195 H (74-99) mg/dL POC Glucose (mg/dL) (70-110) mg/dL Urine Protein (Negative) Urine Glucose (UA) (Negative) Urine Opiates Screen (NotDetected) Thrombosis Risk Factor Assmnt - Choose All That Apply Each Factor Represents 1 point: Age 41-60 years, History of prior major surgery (<1month), Minor surgery planned, Obesity (BMI >25), Swollen legs (current) Thrombosis Risk Factor Assessment Total Risk Factor Score: 5 Thrombosis Risk Factor Assessment Level: High Risk Assessment and Plan Plan: Admitted through emergency room due to psychosis with hallucinations and paranoia Underlying history of insulin-dependent diabetes mellitus, patient restarted on Levemir 25 units once daily at bedtime Will monitor closely Recent history of knee replacement surgery with subsequent infection and removal of the knee hardware, patient was maintained on IV antibiotic, will consult Dr. Fernandez for follow-up Underlying history of recent cardiac arrhythmia, patient had a Holter monitor placed by Dr. [facility]an[facility] the [facility], patient was supposed to return to monitor yesterday, I will deliver the monitor to [facility] today Underlying history of hypertension Underlying history of hyperlipidemia Underlying history of anemia Patient is admitted to psychiatry floor, management of psychosis pressure primary psychiatry team At this time home medications reviewed and reordered Consultation for Dr. Fernandez requested to assess antibiotic treatment for knee infection patient has an antibiotic spacer in Will follow closely during this admission
[2022-06-29] MEDS: clonazePAM 1 MG TAB PO PRN (15:29)
[2022-06-29] MEDS: traMADol 50 MG TAB PO PRN (15:29)
[2022-06-29] MEDS: LEVOTHYROXINE 125 MCG TAB PO SCH (17:49)
[2022-06-29] MEDS: metFORMIN 500 MG TAB PO SCH ×2 (17:49→20:32)
[2022-06-29] MEDS: METOPROLOL SUCCINATE (ER) 100 MG TAB.ER.24H PO SCH (17:50)
[2022-06-29] MEDS: VENLAFAXINE HCL ER 150 MG CAP PO SCH (17:50)
[2022-06-29] MEDS: lisinopriL 5 MG TAB PO SCH (17:50)
[2022-06-29 17:56] LABS: Glucose,Whole Blood 197 mg/dL (70-110)
[2022-06-29] MEDS: INSULIN ASPART (NovoLOG) 100 UNIT/ML VIAL SQ SCH ×2 (17:58→20:11)
[2022-06-29] MEDS ORDERED: WARFARIN 10 MG TAB PO ONE (18:00)
[2022-06-29] MEDS: OLANZapine 10 MG TAB PO SCH (20:00)
[2022-06-29] MEDS: hydrOXYzine pamoate 25 MG CAP PO PRN (20:03)
[2022-06-29 20:09] LABS: Glucose,Whole Blood 233 mg/dL (70-110)
[2022-06-29] MEDS: INSULIN DETEMIR (LEVEMIR) 100 UNIT/ML SYR SQ SCH (20:12)
[2022-06-29 22:53] LABS: Chol/HDL Ratio 4.48 Ratio; LDL Cholesterol,Calculated 77.7 mg/dL (0.0-131.0)
[2022-06-30] MEDS: traMADol 50 MG TAB PO PRN ×2 (00:02→18:07)
[2022-06-30 07:56] LABS: Glucose,Whole Blood 160 mg/dL (70-110)
[2022-06-30] MEDS: INSULIN ASPART (NovoLOG) 100 UNIT/ML VIAL SQ SCH ×4 (07:56→20:02)
[2022-06-30] MEDS: ACETAMINOPHEN TAB 325 MG TAB PO PRN ×2 (07:58→18:06)
[2022-06-30 08:42] LABS: Basophils # (A) 0.1 k/uL (0-0.2); Basophils % (A) 1 %; Eosinophils # (A) 0.2 k/uL (0-0.7); Eosinophils % (A) 5 %; HCT 35.9 % (34.0-46.0); HGB 11.7 gm/dL (11.4-16.0); Lymphocytes # (A) 0.9 k/uL (1.0-4.8); Lymphocytes % (A) 21 %; MCH 27.1 pg (25.0-35.0); MCHC 32.5 g/dL (31.0-37.0); MCV 83.4 fL (80.0-100.0); Mean Platelet Volume 6.6; Monocytes # (A) 0.2 k/uL (0-1.0); Monocytes % (A) 5 %; Neutrophils # (A) 2.8 k/uL (1.3-7.7); Neutrophils % (A) 67 %; Platelet Count 276 k/uL (150-450); RDW 14.7 % (11.5-15.5); WBC 4.2 k/uL (3.8-10.6)
[2022-06-30 08:50] LABS: ALT 18 U/L (4-34); AST 24 U/L (14-36); African American GFR (CKD) >90 (>60 ml/min/1.73 sqM); Albumin 4.2 g/dL (3.5-5.0); Alkaline Phosphatase 85 U/L (38-126); Anion Gap 8 mmol/L; Blood Urea Nitrogen 14 mg/dL (7-17); Calcium 9.6 mg/dL (8.4-10.2); Carbon Dioxide 24 mmol/L (22-30); Chloride 104 mmol/L (98-107); Glucose 153 mg/dL (74-99); Non-African American GFR(CKD) >90 (>60 ml/min/1.73 sqM); Potassium 4.7 mmol/L (3.5-5.1); Sodium 136 mmol/L (137-145); Total Bilirubin 0.2 mg/dL (0.2-1.3); Total Protein 6.6 g/dL (6.3-8.2)
[2022-06-30 09:00] LABS: Prothrombin Time 10.7 sec (9.0-12.0)
[2022-06-30] MEDS ORDERED: buPROPion XL 150 MG TAB.ER.24H PO SCH (09:00)
[2022-06-30] MEDS: metFORMIN 500 MG TAB PO SCH ×2 (09:44→20:02)
[2022-06-30] MEDS: ATORVASTATIN 80 MG TAB PO SCH (09:46)
[2022-06-30] MEDS: FERROUS SULFATE 325 MG TAB PO SCH (09:46)
[2022-06-30] MEDS: MAGNESIUM OXIDE 400 MG TAB PO SCH (09:46)
[2022-06-30] MEDS: FAMOTIDINE 20 MG TAB PO SCH (09:46)
[2022-06-30] MEDS: FENOFIBRATE 160 MG TAB PO SCH (09:47)
[2022-06-30] MEDS: CHOLECALCIFEROL 25 MCG (1000 IU) TABLET PO SCH (09:47)
[2022-06-30] MEDS: hydrOXYzine pamoate 25 MG CAP PO PRN (09:49)
[2022-06-30] MEDS: haloperidoL 5 MG TAB PO PRN (10:22)
[2022-06-30] MEDS: clonazePAM 1 MG TAB PO PRN (10:22)
[2022-06-30 14:47] LABS: Glucose,Whole Blood 132 mg/dL (70-110)
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
[2022-06-30 17:46] LABS: Glucose,Whole Blood 138 mg/dL (70-110)
[2022-06-30] MEDS: lisinopriL 5 MG TAB PO SCH (17:58)
[2022-06-30] MEDS: METOPROLOL SUCCINATE (ER) 100 MG TAB.ER.24H PO SCH (17:59)
[2022-06-30] MEDS: LEVOTHYROXINE 125 MCG TAB PO SCH (17:59)
[2022-06-30] MEDS: VENLAFAXINE HCL ER 150 MG CAP PO SCH (17:59)
[2022-06-30] MEDS ORDERED: WARFARIN 10 MG TAB PO ONE (18:00)
[2022-06-30 19:53] LABS: Glucose,Whole Blood 159 mg/dL (70-110)
[2022-06-30] MEDS: INSULIN DETEMIR (LEVEMIR) 100 UNIT/ML SYR SQ SCH ×2 (19:59→20:06)
[2022-06-30] MEDS: OLANZapine 10 MG TAB PO SCH ×2 (19:59→20:05)
[2022-06-30] MEDS: DIVALPROEX ER 500 MG TAB.ER.24H PO SCH ×2 (19:59→20:06)
[2022-06-30] MEDS: HYDROcodone/APAP 5-325MG 1 EACH TAB PO PRN (22:21)
[2022-07-01 07:59] LABS: Glucose,Whole Blood 115 mg/dL (70-110)
[2022-07-01] MEDS: INSULIN ASPART (NovoLOG) 100 UNIT/ML VIAL SQ SCH ×4 (08:08→20:03)
[2022-07-01] MEDS: ATORVASTATIN 80 MG TAB PO SCH (08:11)
[2022-07-01] MEDS: metFORMIN 500 MG TAB PO SCH ×2 (08:11→20:03)
[2022-07-01] MEDS: FENOFIBRATE 160 MG TAB PO SCH (08:11)
[2022-07-01] MEDS: FERROUS SULFATE 325 MG TAB PO SCH (08:11)
[2022-07-01] MEDS: MAGNESIUM OXIDE 400 MG TAB PO SCH (08:11)
[2022-07-01] MEDS: CHOLECALCIFEROL 25 MCG (1000 IU) TABLET PO SCH (08:12)
[2022-07-01] MEDS: FAMOTIDINE 20 MG TAB PO SCH (08:12)
[2022-07-01] MEDS: HYDROcodone/APAP 5-325MG 1 EACH TAB PO PRN ×2 (08:13→20:03)
[2022-07-01 10:38] LABS: INR 1.2 (<1.2); Prothrombin Time 12.7 sec (9.0-12.0)
[2022-07-01 12:34] LABS: Glucose,Whole Blood 116 mg/dL (70-110)
[2022-07-01] MEDS: clonazePAM 1 MG TAB PO PRN (14:19)
[2022-07-01] MEDS: haloperidoL 5 MG TAB PO PRN (14:19)
[2022-07-01] MEDS: ACETAMINOPHEN TAB 325 MG TAB PO PRN ×2 (14:42→20:35)
[2022-07-01] MEDS: hydrOXYzine pamoate 25 MG CAP PO PRN (14:43)
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
[2022-07-01 17:38] LABS: Glucose,Whole Blood 105 mg/dL (70-110)
[2022-07-01] MEDS ORDERED: WARFARIN 3 MG TAB PO ONE (18:00)
[2022-07-01] MEDS: LEVOTHYROXINE 125 MCG TAB PO SCH (18:30)
[2022-07-01] MEDS: VENLAFAXINE HCL ER 150 MG CAP PO SCH (18:30)
[2022-07-01] MEDS: lisinopriL 5 MG TAB PO SCH (18:30)
[2022-07-01] MEDS: METOPROLOL SUCCINATE (ER) 100 MG TAB.ER.24H PO SCH (18:30)
[2022-07-01 19:58] LABS: Glucose,Whole Blood 183 mg/dL (70-110)
[2022-07-01] MEDS: INSULIN DETEMIR (LEVEMIR) 100 UNIT/ML SYR SQ SCH (20:35)
[2022-07-01] MEDS: DIVALPROEX ER 500 MG TAB.ER.24H PO SCH (20:53)
[2022-07-01] MEDS: OLANZapine 10 MG TAB PO SCH (20:54)
[2022-07-02 06:54] VITALS: RESP 16
[2022-07-02] MEDS: HYDROcodone/APAP 5-325MG 1 EACH TAB PO PRN ×3 (06:54→21:34)
[2022-07-02 07:32] LABS: Basophils % (A) 1 %; Eosinophils # (A) 0.1 k/uL (0-0.7); Eosinophils % (A) 3 %; HCT 35.1 % (34.0-46.0); Lymphocytes # (A) 0.8 k/uL (1.0-4.8); Lymphocytes % (A) 19 %; MCHC 34.2 g/dL (31.0-37.0); Mean Platelet Volume 6.8; Monocytes # (A) 0.2 k/uL (0-1.0); Monocytes % (A) 6 %; Neutrophils # (A) 2.9 k/uL (1.3-7.7); Neutrophils % (A) 69 %; Platelet Count 252 k/uL (150-450); RBC 4.28 m/uL (3.80-5.40); RDW 14.6 % (11.5-15.5); WBC 4.2 k/uL (3.8-10.6)
[2022-07-02 07:45] LABS: INR 1.3 (<1.2); Prothrombin Time 13.9 sec (9.0-12.0)
[2022-07-02 07:56] LABS: Glucose,Whole Blood 125 mg/dL (70-110)
[2022-07-02 07:58] LABS: ALT 17 U/L (4-34); AST 24 U/L (14-36); African American GFR (CKD) >90 (>60 ml/min/1.73 sqM); Albumin 4.2 g/dL (3.5-5.0); Alkaline Phosphatase 82 U/L (38-126); Anion Gap 7 mmol/L; Blood Urea Nitrogen 21 mg/dL (7-17); Calcium 9.3 mg/dL (8.4-10.2); Carbon Dioxide 25 mmol/L (22-30); Chloride 104 mmol/L (98-107); Glucose 112 mg/dL (74-99); Non-African American GFR(CKD) >90 (>60 ml/min/1.73 sqM); Potassium 5.1 mmol/L (3.5-5.1); Sodium 136 mmol/L (137-145); Total Bilirubin 0.3 mg/dL (0.2-1.3); Total Protein 6.8 g/dL (6.3-8.2)
[2022-07-02] MEDS: INSULIN ASPART (NovoLOG) 100 UNIT/ML VIAL SQ SCH ×4 (08:08→20:20)
[2022-07-02] MEDS: haloperidoL 5 MG TAB PO SCH ×2 (08:10→08:54)
[2022-07-02] MEDS: FERROUS SULFATE 325 MG TAB PO SCH (08:11)
[2022-07-02] MEDS: FENOFIBRATE 160 MG TAB PO SCH (08:11)
[2022-07-02] MEDS: ATORVASTATIN 80 MG TAB PO SCH (08:11)
[2022-07-02] MEDS: MAGNESIUM OXIDE 400 MG TAB PO SCH (08:11)
[2022-07-02] MEDS: CHOLECALCIFEROL 25 MCG (1000 IU) TABLET PO SCH (08:11)
[2022-07-02] MEDS: FAMOTIDINE 20 MG TAB PO SCH (08:11)
[2022-07-02] MEDS: metFORMIN 500 MG TAB PO SCH ×2 (08:11→21:35)
[2022-07-02] MEDS: ENOXAPARIN 100 MG/ML SYRINGE SQ SCH ×2 (09:35→21:38)
[2022-07-02 13:05] LABS: Glucose,Whole Blood 119 mg/dL (70-110)
[2022-07-02] MEDS: traMADol 50 MG TAB PO PRN (15:35)
[2022-07-02 17:51] LABS: Glucose,Whole Blood 133 mg/dL (70-110)
[2022-07-02] MEDS ORDERED: WARFARIN 3 MG TAB PO ONE (18:00)
[2022-07-02] MEDS ORDERED: haloperidoL 5 MG TAB PO STA (18:29)
--- NOTE | 2022-07-02 19:49 | P.PN ---
Progress Note - Text Progress Note Date: 07/02/22 Interval History: Patient was seen walking in the hallway and was agreeable to speak with screen writer. She appears calm today, mood appears more stable and thoughts are more rational, however she is fixated on discharge. No paranoid delusions expressed today, however she does report she and her family want to move since her neighborhood is not safe. She has not required PRN medications for agitation, psychosis or anxiety so far today. Her last PRN medications were given yesterday. At this time patient denies any suicidal or homicidal ideations, intent or plan. She denies any auditory or visual hallucinations so far today, last auditory hallucinations were yesterday. Patient denies any side effects from the medications and has been compliant with meds. Mental Status Exam: General Appearance: Patient appears to be stated age, is dressed in clean/casual attire, ambulates with walker. Behavior: Patient is calm without any agitated behavior. Speech: Patient's speech is fluent and non-pressured. Mood/Affect: Mood is improving, affect is stable. Suicidality/Homicidality: Patient denies having any suicidal or homicidal ideation intent or plan. Perceptions: Patient denies any visual hallucinations, but does report auditory hallucinations earlier today that subsided after taking Haldol/Klonopin. Though content/process: There is concern for delusional thought content; and thought process is linear and goal-directed. Memory and concentration: AOX3, grossly intact for the purposes of this session Judgment and insight: Improving mildly Assessment: Schizoaffective disorder, bipolar type Cocaine use disorder, in remission Plan: -Patient continues to meet criteria for inpatient psychiatric admission for symptom stabilization and safety. Patient has signed adult voluntary form and medication consent and was placed in patient's chart. -Medications: Haldol was increased to 5 mg po BID (8am, 4pm) for psychosis starting today. She is not interested in Clozapine due to the need for weekly blood draws. Continue Depakote ER 1000 mg QHS for mood stabilization. Depakene and ammonia levels ordered for Saturday morning. Continue Zyprexa 20 mg QHS for psychosis and mood stabilization. Continue Effexor XR 300 mg daily for mood/anxiety. She reports she has been on this for many years and it helps her. Continue Klonopin 1 mg BID PRN for anxiety. -When necessary Ativan and Haldol for agitation/aggression. -NRT - nonsmoker, not needed -Encouraged the patient to participate in milieu.
[2022-07-02 20:08] LABS: Glucose,Whole Blood 176 mg/dL (70-110)
[2022-07-02] MEDS: METOPROLOL SUCCINATE (ER) 100 MG TAB.ER.24H PO SCH (20:20)
[2022-07-02] MEDS: LEVOTHYROXINE 125 MCG TAB PO SCH (20:20)
[2022-07-02] MEDS: lisinopriL 5 MG TAB PO SCH (20:20)
[2022-07-02] MEDS: clonazePAM 1 MG TAB PO PRN (21:35)
[2022-07-02] MEDS: DIVALPROEX ER 500 MG TAB.ER.24H PO SCH (21:36)
[2022-07-02] MEDS: OLANZapine 10 MG TAB PO SCH (21:36)
[2022-07-02] MEDS: VENLAFAXINE HCL ER 150 MG CAP PO SCH (21:36)
[2022-07-02] MEDS: INSULIN DETEMIR (LEVEMIR) 100 UNIT/ML SYR SQ SCH (21:39)
[2022-07-03 07:36] LABS: Glucose,Whole Blood 101 mg/dL (70-110)
[2022-07-03] MEDS: INSULIN ASPART (NovoLOG) 100 UNIT/ML VIAL SQ SCH ×2 (07:37→12:58)
[2022-07-03] MEDS: FAMOTIDINE 20 MG TAB PO SCH (07:54)
[2022-07-03] MEDS: FERROUS SULFATE 325 MG TAB PO SCH (07:55)
[2022-07-03] MEDS: CHOLECALCIFEROL 25 MCG (1000 IU) TABLET PO SCH (07:55)
[2022-07-03] MEDS: metFORMIN 500 MG TAB PO SCH (07:56)
[2022-07-03] MEDS: ATORVASTATIN 80 MG TAB PO SCH (07:57)
[2022-07-03] MEDS: FENOFIBRATE 160 MG TAB PO SCH (07:57)
[2022-07-03] MEDS: MAGNESIUM OXIDE 400 MG TAB PO SCH (07:59)
[2022-07-03] MEDS ORDERED: haloperidoL 5 MG TAB PO SCH ×3 (08:00→16:00)
[2022-07-03] MEDS: ENOXAPARIN 100 MG/ML SYRINGE SQ SCH (08:01)
[2022-07-03] MEDS: HYDROcodone/APAP 5-325MG 1 EACH TAB PO PRN (08:03)
[2022-07-03 11:25] LABS: INR 1.8 (<1.2); Prothrombin Time 18.3 sec (9.0-12.0)
[2022-07-03 12:51] LABS: Glucose,Whole Blood 87 mg/dL (70-110)
--- NOTE | 2022-07-03 15:16 | P.DS ---
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 Please go to scheduled outpatient appointment for aftercare treatment. If symptoms return or become worse, call the crisis line at and/or go to the nearest emergency room for evaluation. Discharge Disposition: HOME SELF-CARE
[2022-07-03 15:34] VITALS: BP 118/71; PULSE 77; TEMP 98.4
[2022-07-03] MEDS ORDERED: WARFARIN 3 MG TAB PO ONE (18:00)
== END 2022-07-03 15:40 | disposition home or self-care (01) | DRG 885 ==
LOC: EC 03:12 → 3MHU 11:38
PROVIDERS: ADMIT Psychiatry & Neurology Psychiatry; ATTEND Psychiatry & Neurology Psychiatry
DX: F25.0 Schizoaffective disorder, bipolar type (principal); U07.1 COVID-19; E11.40 Type 2 diabetes mellitus with diabetic neuropathy, unspecified; F14.11 Cocaine abuse, in remission; Z79.4 Long term (current) use of insulin; Z28.310 Unvaccinated for COVID-19; F41.9 Anxiety disorder, unspecified; I10 Essential (primary) hypertension; E78.5 Hyperlipidemia, unspecified; E03.9 Hypothyroidism, unspecified; I49.9 Cardiac arrhythmia, unspecified; K21.9 Gastro-esophageal reflux disease without esophagitis; G89.29 Other chronic pain; M54.9 Dorsalgia, unspecified; K59.00 Constipation, unspecified; G47.33 Obstructive sleep apnea (adult) (pediatric); E66.9 Obesity, unspecified; Z68.31 Body mass index [BMI] 31.0-31.9, adult; Z79.84 Long term (current) use of oral hypoglycemic drugs; Z79.01 Long term (current) use of anticoagulants; Z79.890 Hormone replacement therapy; Z79.899 Other long term (current) drug therapy; Z47.33 Aftercare following explantation of knee joint prosthesis; Z59.6 Low income; Z86.2 Personal history of diseases of the blood and blood-forming organs and certain disorders involving the immune mechanism; Z87.01 Personal history of pneumonia (recurrent); Z95.2 Presence of prosthetic heart valve; Z86.19 Personal history of other infectious and parasitic diseases; Z98.891 History of uterine scar from previous surgery; Z71.51 Drug abuse counseling and surveillance of drug abuser; Z71.41 Alcohol abuse counseling and surveillance of alcoholic; Z88.5 Allergy status to narcotic agent; Z91.011 Allergy to milk products; Z81.8 Family history of other mental and behavioral disorders; Z81.1 Family history of alcohol abuse and dependence
CPT/HCPCS: 80053; 80061; 80164; 80306; 81001; 81025; 82075; 83036; 84439; 84443; 85025; 85610; 87635; 99284

== ENCOUNTER 2022-07-09 08:54 | Emergency (ER) | payer MEDICARE, MEDICAID ==
[2022-07-09 09:07] VITALS: RESP 18
--- NOTE | 2022-07-09 09:27 | ED ---
General Adult HPI - General Chief complaint: Psychiatric Symptoms Stated complaint: Mental Health Time Seen by Provider: 07/09/22 08:59 Source: patient, police, EMS Mode of arrival: EMS Limitations: altered mental status - History of Present Illness Initial comments: Dictation was produced using [employer] dictation software. please excuse any grammatical, word or spelling errors. Chief Complaint: 62-year-old female presents to the emergency department for paranoia History of Present Illness: Is a 62-year-old female she has past medical history of cocaine use and bipolar disease. Patient was brought in by EMS. Patient reports that she called the zipper cutter after having paranoid thoughts. She states that "there was a big black man shoving his penis into her mouth," "people stealing from her freezer." And he will make a loud noise in her kitchen. Patient was recently hospitalized for psychiatric complaints. This is as filled out by police clerk. Son also assisted in filling out a petition. The ROS documented in this emergency department record has been reviewed and confirmed by me. Those systems with pertinent positive or negative responses have been documented in the HPI. All other systems are other negative and/or noncontributory. PHYSICAL EXAM: General Impression: Alert and oriented x3, not in acute distress HEENT: Normocephalic atraumatic, extra-ocular movements intact, pupils equal and reactive to light bilaterally, mucous membranes moist. Cardiovascular: Heart regular rate and rhythm Chest: Able to complete full sentences, no retractions, no tachypnea Abdomen: abdomen soft, non-tender, non-distended, no organomegaly Musculoskeletal: Pulses present and equal in all extremities, no peripheral edema Motor: no focal deficits noted Neurological: CN II-XII grossly intact, no focal motor or sensory deficits noted Skin: Intact with no visualized rashes Psych: Paranoid ED course: 62-year-old female presents to the emergency department for psychosis and paranoid thinking. Signs upon arrival are within acceptable limits. Patient physical examination is benign. Patient acute distress. Patient me dically cleared for EPS evaluation. Patient of value by EPS. EPS recommends discharge with outpatient follow-up. She appears to be improved compared to recent inpatient psych admission. - Related Data Home Medications Medication Instructions Recorded Confirmed Metoprolol Succinate (ER) [Toprol 100 mg PO PC-SUPPER 02/02/21 07/09/22 XL] lisinopriL [Zestril] 5 mg PO PC-SUPPER 02/02/21 07/09/22 Empagliflozin [Jardiance] 10 mg PO DAILY 09/19/21 07/09/22 metFORMIN HCL [Glucophage] 1,000 mg PO DIRECTED 04/24/22 07/09/22 Albuterol Inhaler [Ventolin Hfa 1 puff INHALATION RT-QID PRN 06/08/22 07/09/22 Inhaler] Levothyroxine Sodium 125 mcg PO PC-SUPPER 06/08/22 07/09/22 Atorvastatin [Lipitor] 80 mg PO DAILY 06/29/22 07/09/22 Cholecalciferol [Vitamin D3 (25 25 mcg PO DAILY 06/29/22 07/09/22 Mcg = 1000 Iu)] Famotidine [Pepcid] 20 mg PO DAILY 06/29/22 07/09/22 Fenofibrate Nanocrystallized 145 mg PO DAILY 06/29/22 07/09/22 [Fenofibrate] Ferrous Sulfate [Iron (65 MG 325 mg PO DAILY 06/29/22 07/09/22 Elemental)] HYDROcodone/APAP 5-325MG [[place] 1 tab PO TID 06/29/22 07/09/22 5-325] Insulin Aspart [NovoLOG Flexpen] 25 units SQ TID-W/MEALS 06/29/22 07/09/22 Insulin Glargine,Hum.rec.anlog 35 unit SQ DAILY 06/29/22 07/09/22 [Basaglar Kwikpen U-100] Magnesium Oxide [Mag-Ox] 250 mg PO DAILY 06/29/22 07/09/22 traMADol HCL 50 mg PO BID PRN 06/29/22 07/09/22 Previous Rx's Medication Instructions Recorded Warfarin [Coumadin] 10 mg PO DAILY 30 Days #30 tab 03/12/22 Divalproex ER [Depakote ER] 1,000 mg PO HS 30 Days tab 07/03/22 OLANZapine [ZyPREXA] 20 mg PO HS 30 Days tab 07/03/22 Venlafaxine HCl ER [Effexor XR] 300 mg PO PC-SUPPER 30 Days cap 07/03/22 clonazePAM 1 mg PO BID PRN 30 Days tab 07/03/22 haloperidoL [Haldol] 5 mg PO BID@0800,1600 30 Days tab 07/03/22 hydrOXYzine pamoate [Vistaril] 25 mg PO Q6HR PRN 30 Days cap 07/03/22 Allergies Allergy/AdvReac Type Severity Reaction Status Date / Time lactose Allergy Unknown Diarrhea Verified 07/09/22 09:29 codeine AdvReac UPSET Verified 07/09/22 09:29 STOMACH Review of Systems ROS Statement: Those systems with pertinent positive or pertinent negative responses have been documented in the HPI. ROS Other: All systems not noted in ROS Statement are negative. Past Medical History Past Medical History: Diabetes Mellitus, GERD/Reflux, Hyperlipidemia, Hypertension, Pneumonia, Sleep Apnea/CPAP/BIPAP, Thyroid Disorder Additional Past Medical History / Comment(s): IDDM type II, neuropathy bilateral feet, rheumatic fever at age 11yrs/scar tissue on valve, aortic valve replacement (mechanical), pt states she had a blood clot around aortic valve prior to surgery, POLLO but does not tolerate Cpap, constipation, L ovarian cyst, hypothyroid., states infection left knee. History of Any Multi-Drug Resistant Organisms: None Reported Date of last positivie culture/infection: 2013 Past Surgical History: Appendectomy, Cardiac Valve Replacement, Section, Joint Replacement, Orthopedic Surgery Additional Past Surgical History / Comment(s): BLANCA, aortic valve replacement (mechanical), L total knee arthroplasty, L foot bunionectomy, EGDs, colonoscopy. Past Anesthesia/Blood Transfusion Reactions: Previous Problems w/ Anesthesia Additional Past Anesthesia/Blood Transfusion Reaction / Comment(s): Stopped breathing when a EGD was done Past Psychological History: Anxiety, Bipolar, Depression, PTSD Smoking Status: Never smoker Past Alcohol Use History: None Reported Past Drug Use History: None Reported - Past Family History Father Additional Family Medical History / Comment(s): Bipolar and ETOH abuse. Mother Additional Family Medical History / Comment(s): ETOH abuse. General Exam Limitations: altered mental status Course Vital Signs 07/09/22 08:57 Temperature 98.1 F Pulse Rate 84 Respiratory 18 Rate Blood Pressure 149/85 O2 Sat by Pulse 94 L Oximetry Medical Decision Making - Lab Data Lab Results 07/09/22 Range/Units 10:17 Coronavirus (PCR) Detected A (Not Detectd) Disposition Clinical Impression: Paranoia Disposition: HOME SELF-CARE Condition: Good Instructions (If sedation given, give patient instructions): Bipolar Disorder (ED) Is patient prescribed a controlled substance at d/c from ED?: No Referrals: Felisa Romo MD [Primary Care Provider] - 1-2 days Time of Disposition: 14:56
[2022-07-09] MEDS ORDERED: HYDROcodone/APAP 5-325MG 1 EACH TAB PO SCH (12:45)
[2022-07-09 15:11] VITALS: BP 157/96; PULSE 96; TEMP 97.4
== END 2022-07-09 16:06 | disposition home or self-care (01) ==
LOC: EC 08:54
DX: F22 Delusional disorders (principal); U07.1 COVID-19; E78.5 Hyperlipidemia, unspecified; I10 Essential (primary) hypertension; E11.40 Type 2 diabetes mellitus with diabetic neuropathy, unspecified; E03.9 Hypothyroidism, unspecified; F41.9 Anxiety disorder, unspecified; F31.9 Bipolar disorder, unspecified; F43.10 Post-traumatic stress disorder, unspecified; Z79.84 Long term (current) use of oral hypoglycemic drugs; Z79.4 Long term (current) use of insulin; Z79.899 Other long term (current) drug therapy; Z79.890 Hormone replacement therapy; Z88.5 Allergy status to narcotic agent; Z91.010 Allergy to peanuts
CPT/HCPCS: 82075; 87635; 99285

== ENCOUNTER 2022-08-07 04:21 | Inpatient (IN) | payer MEDICARE, MEDICAID ==
--- NOTE | 2022-08-07 05:56 | ED ---
General Adult HPI - General Source: patient, RN notes reviewed, old records reviewed Mode of arrival: ambulatory Limitations: no limitations <Jermaine Jaimes - Last Filed: 08/07/22 05:53> <Amrita Horn - Last Filed: 08/07/22 09:28> - General Chief complaint: Psychiatric Symptoms Stated complaint: mental health Time Seen by Provider: 08/07/22 04:36 - History of Present Illness Initial comments: 62-year-old female presenting for evaluation of mental health. Patient was dropped off emergency department by local police. Patient is delusional, paranoid. She's hyper congregational stating that the Lord spoke through her to the police officers. She states that the man was burned inside of her oven. She states that the mafia is after her. She states that the floor in her apartment is moving. (Jermaine Jaimes) - Related Data Home Medications Medication Instructions Recorded Confirmed Metoprolol Succinate (ER) [Toprol 100 mg PO PC-SUPPER 02/02/21 07/10/22 XL] lisinopriL [Zestril] 5 mg PO PC-SUPPER 02/02/21 07/10/22 Empagliflozin [Jardiance] 10 mg PO DAILY 09/19/21 07/10/22 metFORMIN HCL [Glucophage] 1,000 mg PO DIRECTED 04/24/22 07/10/22 Albuterol Inhaler [Ventolin Hfa 1 puff INHALATION RT-QID PRN 06/08/22 07/10/22 Inhaler] Levothyroxine Sodium 125 mcg PO PC-SUPPER 06/08/22 07/10/22 Atorvastatin [Lipitor] 80 mg PO DAILY 06/29/22 07/10/22 Cholecalciferol [Vitamin D3 (25 25 mcg PO DAILY 06/29/22 07/10/22 Mcg = 1000 Iu)] Famotidine [Pepcid] 20 mg PO DAILY 06/29/22 07/10/22 Fenofibrate Nanocrystallized 145 mg PO DAILY 06/29/22 07/10/22 [Fenofibrate] Ferrous Sulfate [Iron (65 MG 325 mg PO DAILY 06/29/22 07/10/22 Elemental)] HYDROcodone/APAP 5-325MG [[place] 1 tab PO TID 06/29/22 07/10/22 5-325] Insulin Aspart [NovoLOG Flexpen] 25 units SQ TID-W/MEALS 06/29/22 07/10/22 Insulin Glargine,Hum.rec.anlog 35 unit SQ DAILY 06/29/22 07/10/22 [Basaglar Kwikpen U-100] Magnesium Oxide [Mag-Ox] 250 mg PO DAILY 06/29/22 07/10/22 Divalproex ER [Depakote ER] 1,000 mg PO HS 07/10/22 07/10/22 haloperidoL [Haldol] 5 mg PO BID@0800,1600 07/10/22 07/10/22 Previous Rx's Medication Instructions Recorded Warfarin [Coumadin] 10 mg PO DAILY 30 Days #30 tab 03/12/22 Venlafaxine HCl ER [Effexor XR] 300 mg PO PC-SUPPER 30 Days cap 07/03/22 clonazePAM 1 mg PO BID PRN 30 Days tab 07/03/22 hydrOXYzine pamoate [Vistaril] 25 mg PO Q6HR PRN 30 Days cap 07/03/22 Cyclobenzaprine [Flexeril] 5 mg PO TID 10 Days #30 tablet 07/17/22 Cyclobenzaprine [Flexeril] 5 mg PO TID PRN tab 07/17/22 OLANZapine [ZyPREXA] 15 mg PO HS tab 07/17/22 OLANZapine [ZyPREXA] 15 mg PO HS #60 tab 07/17/22 Allergies Allergy/AdvReac Type Severity Reaction Status Date / Time lactose AdvReac Unknown Diarrhea Verified 08/07/22 05:01 codeine AdvReac UPSET Verified 08/07/22 05:01 STOMACH Review of Systems ROS Other: All systems not noted in ROS Statement are negative. <Jermaine Jaimes - Last Filed: 08/07/22 05:53> ROS Other: All systems not noted in ROS Statement are negative. <Amrita Horn - Last Filed: 08/07/22 09:28> ROS Statement: Those systems with pertinent positive or pertinent negative responses have been documented in the HPI. Past Medical History Past Medical History: Diabetes Mellitus, GERD/Reflux, Hyperlipidemia, Hypertension, Pneumonia, Sleep Apnea/CPAP/BIPAP, Thyroid Disorder Additional Past Medical History / Comment(s): IDDM type II, neuropathy bilateral feet, rheumatic fever at age 11yrs/scar tissue on valve, aortic valve replacement (mechanical), pt states she had a blood clot around aortic valve p rior to surgery, POLLO but does not tolerate Cpap, constipation, L ovarian cyst, hypothyroid., states infection left knee. History of Any Multi-Drug Resistant Organisms: None Reported Date of last positivie culture/infection: 2013 Past Surgical History: Appendectomy, Cardiac Valve Replacement, Section, Joint Replacement, Orthopedic Surgery Additional Past Surgical History / Comment(s): BLANCA, aortic valve replacement (mechanical), L total knee arthroplasty, L foot bunionectomy, EGDs, colonoscopy. Past Anesthesia/Blood Transfusion Reactions: Previous Problems w/ Anesthesia Additional Past Anesthesia/Blood Transfusion Reaction / Comment(s): Stopped breathing when a EGD was done Past Psychological History: Anxiety, Bipolar, Depression, PTSD Smoking Status: Never smoker - Past Family History Father Additional Family Medical History / Comment(s): Bipolar and ETOH abuse. Mother Additional Family Medical History / Comment(s): ETOH abuse. <Jermaine Jaimes - Last Filed: 08/07/22 05:53> General Exam Limitations: no limitations General appearance: alert, in no apparent distress Head exam: Present: atraumatic, normocephalic Eye exam: Present: normal appearance, PERRL ENT exam: Present: normal exam Neck exam: Present: normal inspection. Absent: tenderness, meningismus Respiratory exam: Present: normal lung sounds bilaterally. Absent: respiratory distress, wheezes Cardiovascular Exam: Present: regular rate, normal rhythm GI/Abdominal exam: Present: soft. Absent: distended, tenderness Extremities exam: Present: normal inspection Neurological exam: Present: alert, oriented X3, CN II-XII intact. Absent: motor sensory deficit Psychiatric exam: Present: other (Delusional, paranoid, manic) Skin exam: Present: warm, dry, intact. Absent: cyanosis, diaphoretic <Jermaine Jaimes - Last Filed: 08/07/22 05:53> Course <Jermaine Jaimes - Last Filed: 08/07/22 05:53> Vital Signs 08/07/22 04:54 Temperature 98.2 F Pulse Rate 79 Respiratory 22 Rate Blood Pressure 138/75 O2 Sat by Pulse 97 Oximetry - Reevaluation(s) Reevaluation #1: 08/07/22 0700 Care signed out to Dr. Horn at shift change awaiting EPS evaluation. (Jermaine Jaimes) Medical Decision Making <Amrita Horn - Last Filed: 08/07/22 09:28> - Medical Decision Making Patient was evaluated by EPS and will be admitted (Amrita Horn) - Lab Data Lab Results 08/07/22 08/07/22 08/07/22 Range/Units 05:15 05:16 06:19 POC Glucose (mg/dL) 130 H (70-110) mg/dL POC Glu Integration Developer ID Shauna Casas Urine Color Colorless Urine Appearance Clear (Clear) Urine pH 5.5 (5.0-8.0) Ur Specific [place] 1.007 (1.001-1.035) Urine Protein Trace H (Negative) Urine Glucose (UA) 4+ H (Negative) Urine Ketones Negative (Negative) Urine Blood Negative (Negative) Urine Nitrite Negative (Negative) Urine Bilirubin Negative (Negative) Urine Urobilinogen <2.0 (<2.0) mg/dL Ur Leukocyte Esterase Large H (Negative) Urine RBC 2 (0-5) /hpf Urine WBC 16 H (0-5) /hpf Ur Squamous Epith Cells 1 (0-4) /hpf Ur Transition Epith Cell <1 (0-1) /hpf Urine Bacteria Rare H (None) /hpf Urine Opiates Screen Detected H (NotDetected) Ur Oxycodone Screen Not Detected (NotDetected) Urine Methadone Screen Not Detected (NotDetected) Ur Propoxyphene Screen Not Detected (NotDetected) Ur Barbiturates Screen Not Detected (NotDetected) U Tricyclic Antidepress Detected H (NotDetected) Ur Phencyclidine Scrn Not Detected (NotDetected) Ur Amphetamines Screen Not Detected (NotDetected) U Methamphetamines Scrn Not Detected (NotDetected) U Benzodiazepines Scrn Not Detected (NotDetected) Urine Cocaine Screen Not Detected (NotDetected) U Marijuana (THC) Screen Not Detected (NotDetected) Coronavirus (PCR) (Not Detectd) 08/07/22 Range/Units 08:46 POC Glucose (mg/dL) (70-110) mg/dL POC Glu Integration Developer ID Urine Color Urine Appearance (Clear) Urine pH (5.0-8.0) Ur Specific [place] (1.001-1.035) Urine Protein (Negative) Urine Glucose (UA) (Negative) Urine Ketones (Negative) Urine Blood (Negative) Urine Nitrite (Negative) Urine Bilirubin (Negative) Urine Urobilinogen (<2.0) mg/dL Ur Leukocyte Esterase (Negative) Urine RBC (0-5) /hpf Urine WBC (0-5) /hpf Ur Squamous Epith Cells (0-4) /hpf Ur Transition Epith Cell (0-1) /hpf Urine Bacteria (None) /hpf Urine Opiates Screen (NotDetected) Ur Oxycodone Screen (NotDetected) Urine Methadone Screen (NotDetected) Ur Propoxyphene Screen (NotDetected) Ur Barbiturates Screen (NotDetected) U Tricyclic Antidepress (NotDetected) Ur Phencyclidine Scrn (NotDetected) Ur Amphetamines Screen (NotDetected) U Methamphetamines Scrn (NotDetected) U Benzodiazepines Scrn (NotDetected) Urine Cocaine Screen (NotDetected) U Marijuana (THC) Screen (NotDetected) Coronavirus (PCR) Not Detected (Not Detectd) Disposition <eJrmaine Jaimes - Last Filed: 08/07/22 05:53> Is patient prescribed a controlled substance at d/c from ED?: No Time of Disposition: 07:25 Decision to Admit Reason: Admit from EC Decision Date: 08/07/22 Decision Time: 07:25 <Amrita Horn - Last Filed: 08/07/22 09:28> Clinical Impression: Acute psychosis Disposition: TRANSFER TO PSYCH HOSP/UNIT Condition: Stable
[2022-08-07 06:19] LABS: Amphetamine Screen,Urine Not Detected (NotDetected); Barbiturate Screen,Urine Not Detected (NotDetected); Benzodiazepines Screen,Urine Not Detected (NotDetected); Cocaine Screen,Urine Not Detected (NotDetected); Methadone Screen, Urine Not Detected (NotDetected); Opiate Screen,Urine Detected (NotDetected); Oxycodone Screen, Urine Not Detected (NotDetected); Phencyclidine Screen,Urine Not Detected (NotDetected); Tricyclic Antidepressant,Urine Detected (NotDetected); Urn Cannabinoid Scrn Not Detected (NotDetected)
[2022-08-07 06:19] LABS: Appearance,Urine Clear (Clear); Bacteria,Urine Rare /hpf; Bilirubin,Urine Negative (Negative); Blood,Urine Negative (Negative); Color,Urine Colorless; Glucose,Urine (UA) 4+ (Negative); Ketones,Urine Negative (Negative); Leukocyte Esterase,Urine Large (Negative); Nitrite,Urine Negative (Negative); PH, Urine 5.5 (5.0-8.0); Protein,Urine Trace (Negative); RBC,Urine 2 /hpf (0-5); Specific Gravity,Urine 1.007 (1.001-1.035); Squamous Epithelial Cell,Urine 1 /hpf (0-4); Transitional Epi Cells,Urine <1 /hpf (0-1); Urobilinogen,Urine <2.0 mg/dL (<2.0); WBC,Urine 16 /hpf (0-5)
[2022-08-07 06:21] LABS: Glucose,Whole Blood 130 mg/dL (70-110)
[2022-08-07] MEDS ORDERED: MAG HYDROX/AL HYDROX/SIMETH 30 ML CUP PO PRN (09:26)
[2022-08-07] MEDS ORDERED: MAGNESIUM HYDROXIDE 2,400 MG/10 ML CUP PO PRN (09:26)
[2022-08-07] MEDS ORDERED: HALOPERIDOL LACTATE 5 MG/ML 1 ML VIAL IM PRN (09:26)
[2022-08-07] MEDS ORDERED: LORazepam 2 MG/ML INJ IM PRN (09:30)
[2022-08-07] MEDS ORDERED: haloperidoL 5 MG TAB PO PRN (09:30)
[2022-08-07] MEDS: LORazepam 1 MG TAB PO PRN (09:38)
[2022-08-07] MEDS: ACETAMINOPHEN TAB 325 MG TAB PO PRN ×2 (09:38→15:19)
[2022-08-07 09:41] VITALS: RESP 18
[2022-08-07] MEDS ORDERED: ALBUTEROL INHALER 60 PUFF/8 GM INHALER (MHU) INHALATION PRN (12:59)
[2022-08-07 13:07] LABS: Glucose,Whole Blood 135 mg/dL (70-110)
[2022-08-07] MEDS: INSULIN ASPART (NovoLOG) 100 UNIT/ML VIAL SQ SCH ×3 (13:07→20:03)
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
[2022-08-07] MEDS ORDERED: haloperidoL 5 MG TAB PO STA (14:08)
[2022-08-07] MEDS: haloperidoL 5 MG TAB PO SCH (15:19)
[2022-08-07 17:45] LABS: Glucose,Whole Blood 114 mg/dL (70-110)
[2022-08-07 20:04] LABS: Glucose,Whole Blood 143 mg/dL (70-110)
[2022-08-07 21:30] LABS: Prothrombin Time 57.4 sec (9.0-12.0)
[2022-08-07 21:39] LABS: INR 5.7 (<1.2)
[2022-08-07] MEDS: DIVALPROEX ER 500 MG TAB.ER.24H PO SCH (21:44)
[2022-08-07] MEDS: metFORMIN 500 MG TAB PO SCH (21:44)
[2022-08-07] MEDS: LEVOTHYROXINE 125 MCG TAB PO SCH (21:45)
[2022-08-07] MEDS: METOPROLOL SUCCINATE (ER) 100 MG TAB.ER.24H PO SCH (21:45)
[2022-08-07] MEDS: lisinopriL 5 MG TAB PO SCH (21:45)
[2022-08-07] MEDS: HYDROcodone/APAP 5-325MG 1 EACH TAB PO SCH (21:46)
[2022-08-07] MEDS ORDERED: WARFARIN 10 MG TAB PO ONE (22:00)
[2022-08-08] MEDS: LORazepam 1 MG TAB PO PRN ×3 (03:10→16:04)
[2022-08-08] MEDS: HYDROcodone/APAP 5-325MG 1 EACH TAB PO SCH ×2 (03:10→20:46)
[2022-08-08 07:44] LABS: Glucose,Whole Blood 149 mg/dL (70-110)
[2022-08-08] MEDS: INSULIN ASPART (NovoLOG) 100 UNIT/ML VIAL SQ SCH ×4 (07:54→19:50)
[2022-08-08] MEDS: ACETAMINOPHEN TAB 325 MG TAB PO PRN ×2 (07:57→14:55)
[2022-08-08] MEDS: haloperidoL 5 MG TAB PO SCH ×2 (08:42→14:49)
[2022-08-08] MEDS: DAPAGLIFLOZIN PROPANEDIOL 5 MG TABLET PO SCH (08:43)
[2022-08-08] MEDS: FERROUS SULFATE 325 MG TAB PO SCH (08:45)
[2022-08-08] MEDS: CHOLECALCIFEROL 25 MCG (1000 IU) TABLET PO SCH (08:45)
[2022-08-08] MEDS: metFORMIN 500 MG TAB PO SCH ×2 (08:45→20:47)
[2022-08-08] MEDS: MAGNESIUM OXIDE 400 MG TAB PO SCH (08:45)
[2022-08-08] MEDS: FAMOTIDINE 20 MG TAB PO SCH (08:45)
[2022-08-08] MEDS: ATORVASTATIN 80 MG TAB PO SCH (08:46)
[2022-08-08 10:28] LABS: Basophils % (A) 1 %; Eosinophils # (A) 0.1 k/uL (0-0.7); Eosinophils % (A) 1 %; HCT 36.1 % (34.0-46.0); HGB 11.7 gm/dL (11.4-16.0); Lymphocytes # (A) 0.5 k/uL (1.0-4.8); Lymphocytes % (A) 15 %; MCH 27.2 pg (25.0-35.0); MCHC 32.4 g/dL (31.0-37.0); MCV 83.9 fL (80.0-100.0); Mean Platelet Volume 6.7; Monocytes # (A) 0.3 k/uL (0-1.0); Monocytes % (A) 7 %; Neutrophils # (A) 2.6 k/uL (1.3-7.7); Neutrophils % (A) 73 %; Platelet Count 279 k/uL (150-450); RBC 4.31 m/uL (3.80-5.40); RDW 15.4 % (11.5-15.5); WBC 3.6 k/uL (3.8-10.6)
[2022-08-08 10:37] LABS: ALT 26 U/L (4-34); AST 34 U/L (14-36); African American GFR (CKD) 81 (>60 ml/min/1.73 sqM); Albumin 4.6 g/dL (3.5-5.0); Alkaline Phosphatase 80 U/L (38-126); Anion Gap 16 mmol/L; Blood Urea Nitrogen 14 mg/dL (7-17); Calcium 9.7 mg/dL (8.4-10.2); Carbon Dioxide 24 mmol/L (22-30); Chloride 96 mmol/L (98-107); Glucose 117 mg/dL (74-99); INR 4.4 (<1.2); Non-African American GFR(CKD) 70 (>60 ml/min/1.73 sqM); Potassium 4.5 mmol/L (3.5-5.1); Prothrombin Time 44.3 sec (9.0-12.0); Sodium 136 mmol/L (137-145); Total Bilirubin 0.5 mg/dL (0.2-1.3); Total Protein 6.9 g/dL (6.3-8.2)
--- NOTE | 2022-08-08 11:56 | P.PN ---
Progress Note - Text Progress Note Date: 08/08/22 Interval History: Patient was seen resting in bed and was directable and agreeable to speak with selling underwriter in the office. The patient reports that "my family is alive, but someone really did kill themself in front of me on the lawn." The patient reports that she does realize that she was expressing delusions again. She states that yesterday, she was experiencing thought insertion, thought projection, and ideas of reference as well. She continues to report that Ricardo does speak to her on occasion, even today. She is denying any suicidal or homicidal ideation, intention, and/or plan. She continues to endorse auditory hallucinations however denies any visual hallucinations. She has been adherent with her medication and is not reporting any significant side effects at this time. She is agreeable to an EKG with possible plans to transition to clozapine. Mental Status Exam: General Appearance: Patient appears to be stated age is alert, directable, and cooperative. Behavior: Patient is calmly seated without any agitated behavior. Patient is ambulating via wheelchair. Speech: Patient's speech is fluent and nonpressured. Mood/Affect: Mood is improving mildly, affect is congruent and euthymic Suicidality/Homicidality: Patient denies having any suicidal or homicidal ideation intent or plan. Perceptions: Patient denies any visual hallucinations however continues to endorse auditory hallucinations. Though content/process: Patient does report significant delusional thought content however is less severe than yesterday. She continues to be religiously preoccupied. Memory and concentration: AOX3, grossly intact for the purposes of this session Judgment and insight: Improving mildly Vital Signs Temp 97.9 F 08/08/22 03:21 Pulse 84 08/08/22 03:21 Resp 18 08/08/22 03:21 BP 170/83 08/08/22 03:21 Pulse Ox 96 08/07/22 09:40 FiO2 Intake & Output 08/07/22 08/08/22 08/08/22 18:59 06:59 18:59 Weight 84.6 kg Laboratory Results - Last 24 Hours 08/07/22 08/07/22 08/07/22 13:06 17:43 20:01 WBC RBC Hgb Hct MCV MCH MCHC RDW Plt Count MPV Neutrophils % Lymphocytes % Monocytes % Eosinophils % Basophils % Neutrophils # Lymphocytes # Monocytes # Eosinophils # Basophils # PT INR Sodium Potassium Chloride Carbon Dioxide Anion Gap BUN Creatinine Est GFR (CKD-EPI)AfAm Est GFR (CKD-EPI)NonAf Glucose POC Glucose (mg/dL) 135 H 114 H 143 H POC Glu Internal Grinder Set Up Operator ID Mita Hernandez Melissa Banish, Ellie Calcium Total Bilirubin AST ALT Alkaline Phosphatase Total Protein Albumin TSH 08/07/22 08/08/22 08/08/22 20:52 07:42 09:40 WBC RBC Hgb Hct MCV MCH MCHC RDW Plt Count MPV Neutrophils % Lymphocytes % Monocytes % Eosinophils % Basophils % Neutrophils # Lymphocytes # Monocytes # Eosinophils # Basophils # PT 57.4 H INR 5.7 H* Sodium 136 L Potassium 4.5 Chloride 96 L Carbon Dioxide 24 Anion Gap 16 BUN 14 Creatinine 0.90 Est GFR (CKD-EPI)AfAm 81 Est GFR (CKD-EPI)NonAf 70 Glucose 117 H POC Glucose (mg/dL) 149 H POC Glu Internal Grinder Set Up Operator ID Juanita Mcpherson Calcium 9.7 Total Bilirubin 0.5 AST 34 ALT 26 Alkaline Phosphatase 80 Total Protein 6.9 Albumin 4.6 TSH 2.850 08/08/22 08/08/22 09:40 09:40 WBC 3.6 L RBC 4.31 Hgb 11.7 Hct 36.1 MCV 83.9 MCH 27.2 MCHC 32.4 RDW 15.4 Plt Count 279 MPV 6.7 Neutrophils % 73 Lymphocytes % 15 Monocytes % 7 Eosinophils % 1 Basophils % 1 Neutrophils # 2.6 Lymphocytes # 0.5 L Monocytes # 0.3 Eosinophils # 0.1 Basophils # 0.0 PT 44.3 H INR 4.4 H Sodium Potassium Chloride Carbon Dioxide Anion Gap BUN Creatinine Est GFR (CKD-EPI)AfAm Est GFR (CKD-EPI)NonAf Glucose POC Glucose (mg/dL) POC Glu Internal Grinder Set Up Operator ID Calcium Total Bilirubin AST ALT Alkaline Phosphatase Total Protein Albumin TSH Assessment Schizoaffective disorder, bipolar type Cocaine use disorder, in remission Plan: -Patient continues to meet criteria for inpatient psychiatric admission for symptom stabilization and safety. Patient has signed adult voluntary form and medication consent and was placed in patient's chart. -Medications: Continue Depakote 1000 mg by mouth at bedtime for mood stabilization We will continue Haldol 5 mg by mouth twice a day for acute psychosis. EKG will be obtained. We will consider transition to clozapine or transition the patient to Haldol decanoate due to concern for nonadherence with treatment. -When necessary Ativan and Haldol for agitation/aggression. -SW on board for discharge planning. Encouraged the patient to participate in milieu.
--- NOTE | 2022-08-08 12:11 | P.CONS ---
History of Present Illness - Reason for Consult Consult date: 08/08/22 Medical management Requesting physician: Gerardo Kirkpatrick - Chief Complaint delusions - History of Present Illness This is a 62-year-old female patient who per presented to the with concerns of auditory and visual hallucinations. Patient was admitted to the [facility] for further management. Patient does have an extensive medical history schizoaffective disorder and bipolar disorder. Patient reports that she has been taking medication but continues to have hallucinations. Additional medical history includes aortic valve replacement which maintained on Coumadin, history of total left knee arthroplasty with subsequent infection and removal of hardware with prolonged course of IV antibiotic follows with Dr. Fernandez, previous history of cocaine abuse, history of insulin-dependent diabetes mellitus, essential hypertension, hyperlipidemia and hypothyroidism. Lab work revealed an INR 5.7. Coumadin currently on hold will consult pharmacy to dose Coumadin r epeat INR daily. This time patient is resting comfortably in bed patient denies any chest pain or shortness of breath. Patient denies nausea vomiting or diarrhea. Patient denies any urinary burning. Patient is complaining of increased pain and swelling to left knee surgical site. Patient reports she is post follow-up with Dr. Gonzalez next week concerned that there may be an infection again in her knee. At this time will consult infectious disease services. Review of Systems Visit for HPI otherwise unremarkable Past Medical History Past Medical History: Diabetes Mellitus, GERD/Reflux, Hyperlipidemia, Hypertension, Pneumonia, Sleep Apnea/CPAP/BIPAP, Thyroid Disorder Additional Past Medical History / Comment(s): IDDM type II, neuropathy bilateral feet, rheumatic fever at age 11yrs/scar tissue on valve, aortic valve replacement (mechanical), pt states she had a blood clot around aortic valve prior to surgery, POLLO but does not tolerate Cpap, constipation, L ovarian cyst, hypothyroid., states infection left knee. History of Any Multi-Drug Resistant Organisms: None Reported Year Discovered:: 2013 Past Surgical History: Appendectomy, Cardiac Valve Replacement, Section, Joint Replacement, Orthopedic Surgery Additional Past Surgical History / Comment(s): BLANCA, aortic valve replacement (mechanical), L total knee arthroplasty, L foot bunionectomy, EGDs, colonoscopy. Past Anesthesia/Blood Transfusion Reactions: Previous Problems w/ Anesthesia Additional Past Anesthesia/Blood Transfusion Reaction / Comm: Stopped breathing when a EGD was done Smoking Status: Never smoker - Past Family History Father Additional Family Medical History / Comment(s): Bipolar and ETOH abuse. Mother Additional Family Medical History / Comment(s): ETOH abuse. Medications and Allergies Home Medications Medication Instructions Recorded Confirmed Type Metoprolol Succinate (ER) [Toprol 100 mg PO PC-SUPPER 02/02/21 07/10/22 History XL] lisinopriL [Zestril] 5 mg PO PC-SUPPER 02/02/21 07/10/22 History Empagliflozin [Jardiance] 10 mg PO DAILY 09/19/21 07/10/22 History Warfarin [Coumadin] 10 mg PO DAILY 30 Days #30 tab 03/12/22 07/10/22 Rx metFORMIN HCL [Glucophage] 1,000 mg PO DIRECTED 04/24/22 07/10/22 History Albuterol Inhaler [Ventolin Hfa 1 puff INHALATION RT-QID PRN 06/08/22 07/10/22 History Inhaler] Levothyroxine Sodium 125 mcg PO PC-SUPPER 06/08/22 07/10/22 History Atorvastatin [Lipitor] 80 mg PO DAILY 06/29/22 07/10/22 History Cholecalciferol [Vitamin D3 (25 25 mcg PO DAILY 06/29/22 07/10/22 History Mcg = 1000 Iu)] Famotidine [Pepcid] 20 mg PO DAILY 06/29/22 07/10/22 History Fenofibrate Nanocrystallized 145 mg PO DAILY 06/29/22 07/10/22 History [Fenofibrate] Ferrous Sulfate [Iron (65 MG 325 mg PO DAILY 06/29/22 07/10/22 History Elemental)] HYDROcodone/APAP 5-325MG [[place] 1 tab PO TID 06/29/22 07/10/22 History 5-325] Insulin Aspart [NovoLOG Flexpen] 25 units SQ TID-W/MEALS 06/29/22 07/10/22 History Insulin Glargine,Hum.rec.anlog 35 unit SQ DAILY 06/29/22 07/10/22 History [Basaglar Kwikpen U-100] Magnesium Oxide [Mag-Ox] 250 mg PO DAILY 06/29/22 07/10/22 History Venlafaxine HCl ER [Effexor XR] 300 mg PO PC-SUPPER 30 Days cap 07/03/22 07/10/22 Rx clonazePAM 1 mg PO BID PRN 30 Days tab 07/03/22 07/10/22 Rx hydrOXYzine pamoate [Vistaril] 25 mg PO Q6HR PRN 30 Days cap 07/03/22 07/10/22 Rx Divalproex ER [Depakote ER] 1,000 mg PO HS 07/10/22 07/10/22 History haloperidoL [Haldol] 5 mg PO BID@0800,1600 07/10/22 07/10/22 History Cyclobenzaprine [Flexeril] 5 mg PO TID 10 Days #30 tablet 07/17/22 Rx Cyclobenzaprine [Flexeril] 5 mg PO TID PRN tab 07/17/22 Rx OLANZapine [ZyPREXA] 15 mg PO HS tab 07/17/22 Rx OLANZapine [ZyPREXA] 15 mg PO HS #60 tab 07/17/22 Rx Allergies Allergy/AdvReac Type Severity Reaction Status Date / Time lactose AdvReac Unknown Diarrhea Verified 08/07/22 10:36 codeine AdvReac UPSET Verified 08/07/22 10:36 STOMACH Physical Exam Vitals: Vital Signs Temp Pulse Resp BP 08/08/22 03:21 97.9 F 84 18 170/83 08/07/22 19:03 107 H 149/80 Head normocephalic Neck supple Lungs clear to auscultation bilaterally no wheezing or crackles Heart regular rate and rhythm S1-S2, no rub or gallop Abdomen is soft nontender nondistended positive bowel sounds no hepatosplenomegaly Extremities no edema. Left surgical knee slight slightly edematous no redness noted Neuro alert and orientated to 3 Results CBC & Chem 7: 08/08/22 09:40 08/08/22 09:40 Labs: Abnormal Lab Results - Last 24 Hours (Table) 08/07/22 08/07/22 08/07/22 Range/Units 13:06 17:43 20:01 WBC (3.8-10.6) k/uL Lymphocytes # (1.0-4.8) k/uL PT (9.0-12.0) sec INR (<1.2) Sodium (137-145) mmol/L Chloride (98-107) mmol/L Glucose (74-99) mg/dL POC Glucose (mg/dL) 135 H 114 H 143 H (70-110) mg/dL 08/07/22 08/08/22 08/08/22 Range/Units 20:52 07:42 09:40 WBC (3.8-10.6) k/uL Lymphocytes # (1.0-4.8) k/uL PT 57.4 H (9.0-12.0) sec INR 5.7 H* (<1.2) Sodium 136 L (137-145) mmol/L Chloride 96 L (98-107) mmol/L Glucose 117 H (74-99) mg/dL POC Glucose (mg/dL) 149 H (70-110) mg/dL 08/08/22 08/08/22 Range/Units 09:40 09:40 WBC 3.6 L (3.8-10.6) k/uL Lymphocytes # 0.5 L (1.0-4.8) k/uL PT 44.3 H (9.0-12.0) sec INR 4.4 H (<1.2) Sodium (137-145) mmol/L Chloride (98-107) mmol/L Glucose (74-99) mg/dL POC Glucose (mg/dL) (70-110) mg/dL Microbiology - Last 24 Hours (Table) 08/07/22 05:16 Urine Culture - Preliminary Urine,Voided Assessment and Plan Assessment: 1. Auditory and visual hallucinations. Patient has been admitted to mental health unit 2. History of schizoaffective bipolar disorder 3. History of aortic valve replacement. Patient maintained on Coumadin. INR level subtherapeutic at 5.4. Coumadin currently on hold daily INRs ordered pha rmacy to dose Coumadin 4. History of total left knee arthroplasty with subsequent infection and re moval of hardware. Patient has been maintained on IV antibiotics with tentative plans for follow-up surgical procedure Dr. Gonzalez. At this time will consult infectious disease services due to concerns of possible infection in left knee 5. History of essential hypertension 6. History of hyperlipidemia 7. History of hypothyroidism Daily PT/INRs ordered Pharmacy to dose Coumadin Consult placed for infectious disease services
[2022-08-08 13:00] LABS: Glucose,Whole Blood 80 mg/dL (70-110)
[2022-08-08 17:44] LABS: Glucose,Whole Blood 131 mg/dL (70-110)
[2022-08-08] MEDS: LEVOTHYROXINE 125 MCG TAB PO SCH (17:54)
[2022-08-08] MEDS: lisinopriL 5 MG TAB PO SCH (17:55)
[2022-08-08] MEDS: METOPROLOL SUCCINATE (ER) 100 MG TAB.ER.24H PO SCH (17:55)
[2022-08-08] MEDS ORDERED: WARFARIN 0.5 MG TAB PO ONE (18:00)
[2022-08-08 19:49] LABS: Glucose,Whole Blood 136 mg/dL (70-110)
[2022-08-08 19:52] LABS: Chol/HDL Ratio 4.52 Ratio; LDL Cholesterol,Calculated 71.5 mg/dL (0.0-131.0)
[2022-08-08] MEDS: DIVALPROEX ER 500 MG TAB.ER.24H PO SCH (20:46)
[2022-08-09] MEDS: LEVOTHYROXINE 125 MCG TAB PO SCH (06:41)
[2022-08-09 07:39] LABS: Glucose,Whole Blood 146 mg/dL (70-110)
[2022-08-09] MEDS: INSULIN ASPART (NovoLOG) 100 UNIT/ML VIAL SQ SCH ×4 (07:47→20:02)
[2022-08-09] MEDS: HYDROcodone/APAP 5-325MG 1 EACH TAB PO SCH ×2 (08:23→20:02)
[2022-08-09] MEDS: haloperidoL 5 MG TAB PO SCH ×2 (08:24→15:34)
[2022-08-09] MEDS: MAGNESIUM OXIDE 400 MG TAB PO SCH (08:24)
[2022-08-09] MEDS: FERROUS SULFATE 325 MG TAB PO SCH (08:24)
[2022-08-09] MEDS: ATORVASTATIN 80 MG TAB PO SCH (08:25)
[2022-08-09] MEDS: FAMOTIDINE 20 MG TAB PO SCH (08:25)
[2022-08-09] MEDS: CHOLECALCIFEROL 25 MCG (1000 IU) TABLET PO SCH (08:25)
[2022-08-09] MEDS: metFORMIN 500 MG TAB PO SCH ×2 (08:25→20:03)
[2022-08-09] MEDS: DAPAGLIFLOZIN PROPANEDIOL 5 MG TABLET PO SCH (08:25)
[2022-08-09] MEDS: CEFDINIR 300 MG CAP PO SCH ×2 (10:13→20:03)
[2022-08-09 11:46] LABS: INR 1.7 (<1.2); Prothrombin Time 17.4 sec (9.0-12.0)
--- NOTE | 2022-08-09 11:47 | P.PN ---
Progress Note - Text Progress Note Date: 08/09/22 Interval History: Patient was seen wandering the hallways and was directable and agreeable to speak with sheet writer in the office. Currently, the patient is not reporting any suicidal or homicidal ideation, intention, and/or plan. She is denying any auditory or visual hallucinations. She is denying any paranoia or other delusions. The patient has been adherent with her medication is not reporting any significant side effects at this time. She does report that her delusional thoughts has decreased however is fearful that she would have another episode of delusional thinking. She does express a desire to be transition to clozapine. She was informed however that she does have an intake with [facility] tomorrow and that she can look at transitioning to clozapine in the outpatient setting. She was also fixated on receiving olanzapine on top of her Haldol however was informed that dual antipsychotic medications are not recommended for her considering she is already at extreme risk of polypharmacy. The patient otherwise reports no issues with regarding her sleep or her appetite. Mental Status Exam: General Appearance: Patient appears to be stated age is alert, directable, and cooperative. Behavior: Patient is calmly seated without any agitated behavior. Patient is ambulating via wheelchair. Speech: Patient's speech is fluent and nonpressured. Mood/Affect: Mood is improving mildly, affect is congruent and euthymic to bright Suicidality/Homicidality: Patient denies having any suicidal or homicidal ideation intent or plan. Perceptions: Patient denies any visual hallucinations however continues to endorse auditory hallucinations. Though content/process: No delusional thought content is endorse today. The patient appears to be linear and logical in short conversation. Memory and concentration: AOX3, grossly intact for the purposes of this session Judgment and insight: Improving mildly Vital Signs Temp 97.9 F 08/09/22 06:49 Pulse 68 08/09/22 06:49 Resp 18 08/09/22 06:49 BP 122/68 08/09/22 06:49 Pulse Ox 99 08/09/22 06:49 FiO2 Laboratory Results - Last 24 Hours 08/08/22 08/08/22 08/08/22 09:40 09:40 12:59 PT INR POC Glucose (mg/dL) 80 POC Glu Medical Assistant ID Juanita Mcpherson [address] Glu mg/dL 142 Hemoglobin A1c 6.6 H Triglycerides 211.00 H Cholesterol 146.00 LDL Cholesterol, Calc 71.5 VLDL Cholesterol, Calc 42.20 H HDL Cholesterol 32.30 L Cholesterol/HDL Ratio 4.52 08/08/22 08/08/22 08/09/22 17:42 19:48 07:38 PT INR POC Glucose (mg/dL) 131 H 136 H 146 H POC Glu Medical Assistant ID Archana Kristofer, Zoe Christianson Jorge A [address] Glu mg/dL Hemoglobin A1c Triglycerides Cholesterol LDL Cholesterol, Calc VLDL Cholesterol, Calc HDL Cholesterol Cholesterol/HDL Ratio 08/09/22 10:41 PT 17.4 H INR 1.7 H POC Glucose (mg/dL) POC Glu Medical Assistant ID Estimated Ave Glu mg/dL Hemoglobin A1c Triglycerides Cholesterol LDL Cholesterol, Calc VLDL Cholesterol, Calc HDL Cholesterol Cholesterol/HDL Ratio Assessment Schizoaffective disorder, bipolar type Cocaine use disorder, in remission Plan: -Patient continues to meet criteria for inpatient psychiatric admission for symptom stabilization and safety. Patient has signed adult voluntary form and medication consent and was placed in patient's chart. -Medications: Continue Depakote 1000 mg by mouth at bedtime for mood stabilization Continue Haldol 5 mg by mouth twice a day for acute psychosis. The patient is scheduled for intake with [facility] tomorrow. She was informed to discuss possible transition to clozapine or Haldol decanoate in the outpatient setting. -When necessary Ativan and Haldol for agitation/aggression. -SW on board for discharge planning. Encouraged the patient to participate in milieu.
[2022-08-09 12:42] LABS: Glucose,Whole Blood 93 mg/dL (70-110)
[2022-08-09] MEDS: LORazepam 1 MG TAB PO PRN (13:57)
[2022-08-09] MEDS: ACETAMINOPHEN TAB 325 MG TAB PO PRN (15:34)
--- NOTE | 2022-08-09 16:47 | P.PN ---
Progress Note - Text Progress Note Date: 08/09/22 Patient has a known history of artificial She needs to be on Coumadin with target INR 2.5-3.5 INR was elevated at 5.7 on presentation However today it is down to 1.7 Which started pitching with subcu Lovenox 1 mg/kg twice daily until Coumadin is therapeutic
[2022-08-09 17:51] LABS: Glucose,Whole Blood 103 mg/dL (70-110)
[2022-08-09] MEDS: METOPROLOL SUCCINATE (ER) 100 MG TAB.ER.24H PO SCH (17:53)
[2022-08-09] MEDS: lisinopriL 5 MG TAB PO SCH (17:53)
[2022-08-09] MEDS ORDERED: WARFARIN 10 MG TAB PO ONE (18:00)
[2022-08-09 20:01] LABS: Glucose,Whole Blood 168 mg/dL (70-110)
[2022-08-09] MEDS: DIVALPROEX ER 500 MG TAB.ER.24H PO SCH (20:03)
[2022-08-09] MEDS: ENOXAPARIN 80 MG/0.8 ML SYRINGE SQ SCH (20:03)
[2022-08-10] MEDS: LEVOTHYROXINE 125 MCG TAB PO SCH (04:05)
[2022-08-10 05:28] VITALS: BP 140/84; PULSE 82; TEMP 98.3
[2022-08-10 07:46] LABS: Glucose,Whole Blood 131 mg/dL (70-110)
[2022-08-10] MEDS: INSULIN ASPART (NovoLOG) 100 UNIT/ML VIAL SQ SCH ×2 (07:46→13:02)
[2022-08-10 07:51] LABS: Basophils # (A) 0.1 k/uL (0-0.2); Basophils % (A) 1 %; Eosinophils # (A) 0.1 k/uL (0-0.7); Eosinophils % (A) 3 %; HCT 36.5 % (34.0-46.0); HGB 11.9 gm/dL (11.4-16.0); Lymphocytes # (A) 0.7 k/uL (1.0-4.8); Lymphocytes % (A) 19 %; MCHC 32.7 g/dL (31.0-37.0); MCV 82.6 fL (80.0-100.0); Mean Platelet Volume 6.8; Monocytes # (A) 0.3 k/uL (0-1.0); Monocytes % (A) 7 %; Neutrophils # (A) 2.6 k/uL (1.3-7.7); Neutrophils % (A) 67 %; Platelet Count 290 k/uL (150-450); RBC 4.41 m/uL (3.80-5.40); RDW 15.1 % (11.5-15.5); WBC 3.9 k/uL (3.8-10.6)
[2022-08-10 08:04] LABS: INR 1.3 (<1.2); Prothrombin Time 13.5 sec (9.0-12.0)
[2022-08-10] MEDS: ATORVASTATIN 80 MG TAB PO SCH (08:33)
[2022-08-10] MEDS: CEFDINIR 300 MG CAP PO SCH (08:33)
[2022-08-10] MEDS: FAMOTIDINE 20 MG TAB PO SCH (08:34)
[2022-08-10] MEDS: CHOLECALCIFEROL 25 MCG (1000 IU) TABLET PO SCH (08:34)
[2022-08-10] MEDS: metFORMIN 500 MG TAB PO SCH (08:34)
[2022-08-10] MEDS: FERROUS SULFATE 325 MG TAB PO SCH (08:34)
[2022-08-10] MEDS: DAPAGLIFLOZIN PROPANEDIOL 5 MG TABLET PO SCH (08:34)
[2022-08-10] MEDS: MAGNESIUM OXIDE 400 MG TAB PO SCH (08:34)
[2022-08-10 08:38] LABS: ALT 22 U/L (4-34); AST 29 U/L (14-36); African American GFR (CKD) >90 (>60 ml/min/1.73 sqM); Albumin 4.7 g/dL (3.5-5.0); Alkaline Phosphatase 91 U/L (38-126); Anion Gap 15 mmol/L; Blood Urea Nitrogen 21 mg/dL (7-17); C Reactive Protein <0.5 mg/dL (<1.0); Calcium 9.6 mg/dL (8.4-10.2); Carbon Dioxide 21 mmol/L (22-30); Chloride 97 mmol/L (98-107); Glucose 135 mg/dL (74-99); Non-African American GFR(CKD) >90 (>60 ml/min/1.73 sqM); Potassium 4.7 mmol/L (3.5-5.1); Sodium 133 mmol/L (137-145); Total Bilirubin 0.7 mg/dL (0.2-1.3)
[2022-08-10] MEDS: HYDROcodone/APAP 5-325MG 1 EACH TAB PO SCH (08:38)
[2022-08-10] MEDS: ENOXAPARIN 80 MG/0.8 ML SYRINGE SQ SCH (08:38)
[2022-08-10] MEDS: haloperidoL 5 MG TAB PO SCH (08:40)
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
[2022-08-10 13:46] LABS: Erythrocyte Sedimentation Rate 17 mm/hr (0-20)
[2022-08-10] MEDS ORDERED: WARFARIN 10 MG TAB PO ONE (18:00)
== END 2022-08-10 13:16 | disposition home or self-care (01) | DRG 885 ==
LOC: EC 04:21 → 3MHU 09:25
PROVIDERS: ADMIT Psychiatry & Neurology Psychiatry; ATTEND Psychiatry & Neurology Psychiatry
DX: F25.0 Schizoaffective disorder, bipolar type (principal); E11.42 Type 2 diabetes mellitus with diabetic polyneuropathy; E03.9 Hypothyroidism, unspecified; F14.11 Cocaine abuse, in remission; I10 Essential (primary) hypertension; E78.5 Hyperlipidemia, unspecified; G47.33 Obstructive sleep apnea (adult) (pediatric); R79.1 Abnormal coagulation profile; F43.10 Post-traumatic stress disorder, unspecified; M25.462 Effusion, left knee; Z20.822 Contact with and (suspected) exposure to COVID-19; Z96.652 Presence of left artificial knee joint; Z91.14 Patient's other noncompliance with medication regimen; Z79.84 Long term (current) use of oral hypoglycemic drugs; Z79.890 Hormone replacement therapy; Z79.891 Long term (current) use of opiate analgesic; Z79.4 Long term (current) use of insulin; Z79.01 Long term (current) use of anticoagulants; Z91.011 Allergy to milk products; Z88.5 Allergy status to narcotic agent; Z95.2 Presence of prosthetic heart valve; Z86.718 Personal history of other venous thrombosis and embolism; Z59.6 Low income; Z79.899 Other long term (current) drug therapy; Z90.89 Acquired absence of other organs; Z98.890 Other specified postprocedural states; Z81.8 Family history of other mental and behavioral disorders
CPT/HCPCS: 36415; 80053; 80061; 80306; 81001; 82075; 83036; 84443; 85025; 85610; 85652; 86140; 87040; 87077; 87086; 87186; 87635; 99284

== ENCOUNTER → 2022-08-25 | Outpatient (CLI) | payer MEDICARE, OTHER ==
[2022-08-25 09:39] LABS: INR 1.3 (<1.2); Prothrombin Time 13.9 sec (9.0-12.0)
[2022-08-25 11:26] LABS: Basophils # (A) 0.04 X 10*3/uL (0.00-0.10); Basophils % (A) 1.1 %; Eosinophils # (A) 0.07 X 10*3/uL (0.04-0.35); HCT 30.1 % (37.2-46.3); HGB 10.4 g/dL (12.0-15.0); Immature Grans, Automated 0.3 %; Lymphocytes # (A) 0.54 X 10*3/uL (0.90-5.00); Lymphocytes % (A) 15.5 %; MCH 28.4 pg (27.0-32.0); MCHC 34.6 g/dL (32.0-37.0); MCV 82.2 fL (80.0-97.0); Mean Platelet Volume 9.3 fL (9.5-12.2); Monocytes # (A) 0.33 X 10*3/uL (0.20-1.00); Monocytes % (A) 9.5 %; NRBC Per 100 WBC 0 /100 WBCS (0.0-0.0); Neutrophils # (A) 2.49 X 10*3/uL (1.80-7.70); Neutrophils % (A) 71.6 %; Platelet Count 243 X 10*3/uL (140-440); RBC 3.66 X 10*6/uL (4.10-5.20); RDW 14.7 % (11.5-14.5); WBC 3.48 X 10*3/uL (4.50-10.00)
[2022-08-25 11:45] LABS: African American GFR (CKD) 109.1 (60.0-200.0); Albumin 3.9 g/dL (3.8-4.9); Albumin/Globulin Ratio 2.05 (1.60-3.17); BUN/Creat Ratio 23.29 Ratio (12.00-20.00); Blood Urea Nitrogen 16.3 mg/dL (9.0-27.0); Calcium 8.6 mg/dL (8.7-10.3); Globulin 1.9 g/dL (1.6-3.3); Non-African American GFR(CKD) 94.2 (60.0-200.0); Potassium 4.6 mmol/L (3.5-5.5); Total Bilirubin 0.4 mg/dL (0.30-1.20); Total Protein 5.8 g/dL (6.2-8.2)
[2022-08-25 12:44] LABS: Appearance,Urine Clear (Clear); Bilirubin,Urine Negative (Negative); Blood,Urine Negative (Negative); Color,Urine Yellow (Yellow); Ketones,Urine Negative (Negative); Nitrite,Urine Negative (Negative); PH, Urine 5.5 (5.0-8.0); Specific Gravity,Urine 1.008 (1.001-1.030); Urobilinogen,Urine 0.2 (0.2,1.0)
[2022-08-25 12:50] LABS: Bacteria,Urine None Seen /HPF (None Seen)
== END | disposition home or self-care (01) ==
LOC: LABPAT 08:38
PROVIDERS: ATTEND Orthopaedic Surgery
DX: Z01.812 Encounter for preprocedural laboratory examination (principal); M17.12 Unilateral primary osteoarthritis, left knee
CPT/HCPCS: 80053; 81001; 85025; 85610; 85730; 87070

== ENCOUNTER → 2022-09-17 | Outpatient (CLI) | payer MEDICARE, OTHER ==
--- NOTE | 2022-09-17 13:37 | US ---
EXAMINATION TYPE: US venous doppler duplex LE LT DATE OF EXAM: 09/17/2022 1:26 PM COMPARISON: NONE CLINICAL HISTORY: I80.9 PHLEBITIS AND THROMBOPHLEBITIS. edema post op x 2 weeks. SIDE PERFORMED: Left TECHNIQUE: The lower extremity deep venous system is examined utilizing real time linear array sonog [place] with graded compression, doppler sonography and color-flow sonography. VESSELS IMAGED: Common Femoral Vein Deep Femoral Vein Greater Saphenous Vein * Femoral Vein Popliteal Vein Small Saphenous Vein * Proximal Calf Veins (* superficial vessels) Left Leg: Negative for DVT IMPRESSION: No evidence of DVT at this time
== END | disposition home or self-care (01) ==
LOC: RADUSWWP 13:04
PROVIDERS: ATTEND Orthopaedic Surgery
DX: I80.9 Phlebitis and thrombophlebitis of unspecified site (principal); Z48.89 Encounter for other specified surgical aftercare

== ENCOUNTER 2022-11-26 22:15 | Emergency (ER) | payer MEDICARE, OTHER ==
--- NOTE | 2022-11-26 22:18 | ED ---
Weakness HPI - General Stated complaint: Fall, RT leg injury Time Seen by Provider: 11/26/22 22:18 Source: RN notes reviewed, old records reviewed, Caregiver Mode of arrival: EMS Limitations: no limitations - History of Present Illness Initial comments: This is a 62-year-old female to the emergency department for evaluation of right gore pain from a fall. Patient believes he states this fall occurred weeks ago. No findings or cause for reason for the fall she has no other complaints of pain here in the emergency department. Patient is just complaining of right leg pain. MD Complaint: generalized weakness, lack of energy, difficulty walking -: unknown Severity: mild Severity scale (1-10): 2 Quality: numbness, aching Consistency: intermittent Improves with: none Worsens with: none Context: trauma/injury Associated Symptoms: denies other symptoms - Related Data Home Medications Medication Instructions Recorded Confirmed Metoprolol Succinate (ER) [Toprol 100 mg PO DAILY 02/02/21 08/28/22 XL] lisinopriL [Zestril] 5 mg PO DAILY 02/02/21 08/27/22 Levothyroxine Sodium 125 mcg PO DAILY 06/08/22 08/27/22 Atorvastatin [Lipitor] 80 mg PO DAILY 06/29/22 08/27/22 Famotidine [Pepcid] 20 mg PO DAILY 06/29/22 08/27/22 Acetaminophen [Tylenol Extra 500 mg PO DAILY PRN 08/27/22 08/27/22 Strength] OLANZapine [ZyPREXA] 20 mg PO DAILY 08/27/22 08/27/22 Warfarin [Coumadin] 5 mg PO WE 08/27/22 08/27/22 Warfarin [Coumadin] 10 mg PO SUMOTUTHFRSA 08/27/22 08/27/22 buPROPion HCL [buPROPion HCL SR] 150 mg PO DAILY 08/27/22 08/27/22 clonazePAM [KlonoPIN] 1 mg PO DAILY PRN 08/27/22 08/27/22 Enoxaparin [Lovenox] 80 mg SQ Q12H 08/28/22 08/28/22 Previous Rx's Medication Instructions Recorded Doxycycline Hyclate 100 mg PO BID 30 Days #60 tab 09/01/22 HYDROcodone/APAP 5-325MG [[place] 1 - 2 tab PO Q6HR PRN 7 Days #32 09/03/22 5-325] tab Docusate [Colace] 100 mg PO BID #60 capsule 09/04/22 HYDROcodone/APAP 5-325MG [[place] 1 each PO Q6HR PRN tab 09/04/22 5-325] Allergies Allergy/AdvReac Type Severity Reaction Status Date / Time lactose AdvReac Unknown Diarrhea Verified 11/26/22 22:23 codeine AdvReac UPSET Verified 11/26/22 22:23 STOMACH Review of Systems ROS Statement: Those systems with pertinent positive or pertinent negative responses have been documented in the HPI. ROS Other: All systems not noted in ROS Statement are negative. Past Medical History Past Medical History: Diabetes Mellitus, GERD/Reflux, Hyperlipidemia, Hypertension, Pneumonia, Sleep Apnea/CPAP/BIPAP, Thyroid Disorder Additional Past Medical History / Comment(s): IDDM type II, neuropathy bilateral feet, rheumatic fever at age 11yrs/scar tissue on valve, aortic valve replacement (mechanical), pt states she had a blood clot around aortic valve prior to surgery, POLLO but does not tolerate Cpap, constipation, L ovarian cyst, hypothyroid., states infection left knee. History of Any Multi-Drug Resistant Organisms: None Reported Date of last positivie culture/infection: 2013 Past Surgical History: Appendectomy, Cardiac Valve Replacement, Section, Joint Replacement, Orthopedic Surgery Additional Past Surgical History / Comment(s): BLANCA, aortic valve replacement (mechanical), L total knee arthroplasty, L foot bunionectomy, EGDs, colonoscopy. Past Anesthesia/Blood Transfusion Reactions: Previous Problems w/ Anesthesia Additional Past Anesthesia/Blood Transfusion Reaction / Comment(s): Stopped breathing when a EGD was done Past Alcohol Use History: None Reported - Past Family History Father Additional Family Medical History / Comment(s): Bipolar and ETOH abuse. Mother Additional Family Medical History / Comment(s): ETOH abuse. Course Vital Signs 11/26/22 22:16 Temperature 98.4 F Pulse Rate 88 Respiratory 14 Rate Blood Pressure 169/95 O2 Sat by Pulse 98 Oximetry - Reevaluation(s) Reevaluation #1: 11/26/22 Medical records reviewed Reevaluation #2: 11/26/22 Symptoms are improved here in the ER Reevaluation #3: 11/26/22 Patient informed of results and questions answered Reevaluation #4: 11/26/22 Was pt. sent in by a medical professional or institution? @ -no Did you speak to anyone other than the patient for history? @ -no Did you review nursing and triage notes? @ -agree Were old charts reviewed? @ -no Differential Diagnosis? @ -no EKG interpreted by me (3pts min.)? @ -yes X-rays interpreted by me (1pt min.)? @ -[none] CT interpreted by me (1pt min.)? @ -[none] U/S interpreted by me (1pt. min.)? @ -[none] What testing was considered but not performed? (CT, X-rays, U/S, labs)? Why? @ no What meds were considered but not given? Why? @ -[none] Did you discuss the management of the patient with other professionals? @ -no Did you reconcile home meds? @ -[none] Was smoking cessation discussed for >3mins.? @ -[none] Was critical care preformed (if so, how long)? @ -[none] Were there social determinants of health that impacted care today? How? (Homelessness, low income, unemployed, alcoholism, drug addiction, transportation, low edu. Level, literacy, decrease access to med. care, alf, rehab)? @ -no Was there de-escalation of care discussed even if they declined? (Discuss DNR or withdrawal of care, Hospice)? @ -no What co-morbidities impacted this encounter? (DM, HTN, Smoking, COPD, CAD, Cancer, CVA, Hep., AIDS, mental health diagnosis, sleep apnea, morbid obesity)? @ -no Was patient admitted / discharged? @ -DC Undiagnosed new problem with uncertain prognosis? @ -[none] Drug Therapy requiring intensive monitoring for toxicity (Heparin, Nitro, Insulin, Cardizem)? @ -[none] Were any procedures done? @ -[none] Diagnosis/symptom? @ -[default] Acute, or Chronic, or Acute on Chronic? @ -[default] Uncomplicated (without systemic symptoms) or Complicated (systemic symptoms)? @ -[default] Side effects of treatment? @ -[none] Exacerbation, Progression, or Severe Exacerbation] @ -[no] Poses a threat to life or bodily function? @ -[no] Medical Decision Making - Medical Decision Making 62 female to the emergency department for evaluation of left leg pain severe. Patient has negative computed tomography scan here in the ER no cause a left knee pain found. She can be discharged home - Radiology Data Radiology results: report reviewed (CT right lower extremity is negative for acute disease), image reviewed Disposition Clinical Impression: Arthritis of right leg Disposition: HOME SELF-CARE Condition: Good Instructions (If sedation given, give patient instructions): Osteoarthritis (ED) Is patient prescribed a controlled substance at d/c from ED?: No Referrals: None,Stated [Primary Care Provider] - 1-2 days Time of Disposition: 00:15
[2022-11-26 22:23] VITALS: BP 169/95; PULSE 88; RESP 14; TEMP 98.4
[2022-11-26] MEDS ORDERED: HYDROmorphone 1 MG/ML 1 ML SYRINGE IM STA (22:37)
--- NOTE | 2022-11-26 23:55 | CT ---
EXAMINATION TYPE: CT lower extremity RT wo con DATE OF EXAM: 11/26/2022 COMPARISON: None HISTORY: right lower extremity pain after fall [id number] CT DLP: 2874.9 mGycm Automated exposure control for dose reduction was used. Images obtained from the mid ileum to the bottom of the foot without contrast. The acetabulum is intact. The femur appears intact. There is hypertrophic osteoarthritis at the knee joint. There is spurring of the femoral and tibial condyles. The ankle mortise is anatomic. There is plantar calcaneal spurring. The subtalar joint is intact. The right ilium appears intact. Sacroiliac joint appears intact. No evidence of focal bone destructio n. No evidence of a soft tissue mass. There is hypertrophic spurring at the patellofemoral joint. No evidence of any significant knee joint effusion. IMPRESSION: There is some hypertrophic osteoarthritis in the knee joint. Hip joint appears intact. No fracture se en. No focal bone destruction.
== END 2022-11-27 00:15 | disposition home or self-care (01) ==
LOC: EC 22:15
DX: M19.071 Primary osteoarthritis, right ankle and foot (principal); E11.9 Type 2 diabetes mellitus without complications; K21.9 Gastro-esophageal reflux disease without esophagitis; E78.5 Hyperlipidemia, unspecified; I10 Essential (primary) hypertension; E03.9 Hypothyroidism, unspecified; Z91.011 Allergy to milk products; Z88.5 Allergy status to narcotic agent; Z79.890 Hormone replacement therapy; Z79.02 Long term (current) use of antithrombotics/antiplatelets; Z79.899 Other long term (current) drug therapy
CPT/HCPCS: 73700; 99284; 96372; J1170

== ENCOUNTER → 2022-12-29 | Outpatient (CLI) | payer MEDICARE, OTHER ==
[2022-12-29 17:15] LABS: ALT 23 U/L (8-44); AST 23 U/L (13-35); African American GFR (CKD) 114.8 (60.0-200.0); Albumin 4.2 g/dL (3.8-4.9); Alkaline Phosphatase 77 U/L (41-126); Blood Urea Nitrogen 15.3 mg/dL (9.0-27.0); Calcium 9.5 mg/dL (8.7-10.3); Carbon Dioxide 28.9 mmol/L (20.0-27.5); Chloride 97 mmol/L (96-109); Glucose 124 mg/dL (70-110); LDL Cholesterol,Calculated 143.4 mg/dL (0.0-131.0); Non-African American GFR(CKD) 99.1 (60.0-200.0); Potassium 4.2 mmol/L (3.5-5.5); Sodium 135 mmol/L (135-145); Total Protein 6.2 g/dL (6.2-8.2)
== END | disposition home or self-care (01) ==
LOC: LABWHC1 09:26
PROVIDERS: ATTEND Internal Medicine Interventional Cardiology
DX: I10 Essential (primary) hypertension (principal); E78.2 Mixed hyperlipidemia
CPT/HCPCS: 36415; 80053; 80061

== ENCOUNTER 2023-01-30 19:29 | Inpatient (IN) | payer MEDICARE, MEDICAID ==
[2023-01-30] MEDS ORDERED: MAGNESIUM HYDROXIDE 2,400 MG/10 ML CUP PO PRN (19:43)
[2023-01-30] MEDS ORDERED: OLANZapine 10 MG VIAL IM PRN (20:00)
[2023-01-30] MEDS ORDERED: OLANZapine 5 MG TAB PO PRN (20:00)
[2023-01-30] MEDS ORDERED: PSEUDOEPHEDRINE 12HR 120 MG TABLET.ER PO SCH (21:00)
[2023-01-30] MEDS: INSULIN ASPART (NovoLOG) 100 UNIT/ML VIAL SQ SCH (21:43)
[2023-01-30 21:44] LABS: Glucose,Whole Blood 145 mg/dL (70-110)
[2023-01-30] MEDS: clonazePAM 0.5 MG TAB PO SCH (22:08)
[2023-01-31] MEDS ORDERED: PSEUDOEPHEDRINE 12HR 120 MG TABLET.ER PO PRN (05:19)
[2023-01-31] MEDS: LEVOTHYROXINE 125 MCG TAB PO SCH (05:43)
[2023-01-31 06:35] LABS: Prothrombin Time 10.6 sec (9.0-12.0)
[2023-01-31] MEDS ORDERED: ZIPRASIDONE 40 MG CAP PO SCH (07:30)
[2023-01-31 07:59] LABS: Glucose,Whole Blood 155 mg/dL (70-110)
[2023-01-31] MEDS: ATORVASTATIN 80 MG TAB PO SCH (08:19)
[2023-01-31] MEDS: ASCORBIC ACID 500 MG TAB PO SCH (08:19)
[2023-01-31] MEDS: clonazePAM 0.5 MG TAB PO SCH ×2 (08:19→20:07)
[2023-01-31] MEDS: INSULIN ASPART (NovoLOG) 100 UNIT/ML VIAL SQ SCH ×4 (08:19→20:19)
[2023-01-31] MEDS: CHOLECALCIFEROL 25 MCG (1000 IU) TABLET PO SCH (08:19)
[2023-01-31] MEDS: NICOTINE 14MG/24HR PATCH TRANSDERM SCH (08:20)
[2023-01-31] MEDS: lisinopriL 20 MG TAB PO SCH (08:20)
[2023-01-31] MEDS: METOPROLOL SUCCINATE (ER) 50 MG TAB.ER.24H PO SCH (08:20)
[2023-01-31] MEDS: LORATADINE 10 MG TAB PO SCH (08:20)
[2023-01-31] MEDS ORDERED: ENOXAPARIN 80 MG/0.8 ML SYRINGE SQ SCH (09:00)
[2023-01-31 13:06] LABS: Glucose,Whole Blood 140 mg/dL (70-110)
[2023-01-31] MEDS: ENOXAPARIN 80 MG/0.8 ML SYRINGE SQ SCH ×2 (13:15→20:05)
--- NOTE | 2023-01-31 14:00 | P.MDCNMH ---
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 Patient has had recent hospitalizations and has been having manic episodes and paranoia and most recently was hospitalized and discharged with Covid although did not suffer any respiratory symptoms. Patient had significant hyponatremia and has been evaluated 2 separate occasions by nephrology and maintain on fluid restrictions and would recommend continue with those at this time. Patient also with history of mechanical valve maintained on Coumadin although having diffi culties with INR and most recent INR is 1.0. Patient has been refusing multiple medications including her Coumadin and would recommend continue with subcutaneous Lovenox 80 mg twice daily and close monitoring of INRs for therapeutic range. Patient also diabetic and would recommend monitoring Accu- Cheks before meals and at bedtime and is becoming more elevated would recommend sliding scale as needed. Patient's sodium improved and patient medically cleared and was transferred to the psychiatric unit as patient required a petition and certification. Patient also reports she is and there was a beta hCG that was done that was negative. Patient reports she has not been taking these medications as she feels it would harm her baby. Patient Was pleasant and cooperative on exam with nursing staff at bedside. Review Of Systems: Constitutional: No fever, no chills, no night sweats. No weight change. No weakness, fatigue or lethargy. No daytime sleepiness. EENT: No headache. No blurred vision or double vision, no loss of vision. No loss of Hearing, no ringing in the ears, no dizziness. No nasal drainage or congestion. No epistaxis. No sore throat. Lungs: No shortness of breath, cough, no sputum production. No wheezing. Cardiovascular: No chest pain, no lower extremity edema. No palpitations. No paroxysmal nocturnal dyspnea. No orthopnea. No lightheadedness or dizziness. No syncopal episodes. Abdominal: No abdominal pain. No nausea, vomiting. No diarrhea. No constipation. No bloody or tarry stools.. No loss of appetite. Genitourinary: No dysuria, increased frequency, urgency. No urinary retention. Musculoskeletal: No myalgias. No muscle weakness, no gait dysfunction, no frequent falls. No back pain. No neck pain. Integumentary: No wounds, no lesions. No rash or pruritus. No unusual bruising. No change in hair or nails. Neurologic: No aphasia. No facial droop. No change in mentation. No head injury. No headache. No paralysis. No paresthesia. Psychiatric: No depression. No anxiety. No mood swings. Endocrine: No abnormal blood sugars. No weight change. No excessive sweating or thirst. No cold intolerance. PHYSICAL EXAMINATION: GENERAL: The patient is alert and oriented x3, Well developed, well nourished. Obese. HEENT: Pupils are round and equally reacting to light. EOMI. no scleral icterus. No conjunctival pallor. Normocephalic, atraumatic. No pharyngeal erythema. No thyromegaly. CARDIOVASCULAR: S1 and S2 muffled PULMONARY: diminished breath sounds bilaterally with no wheezing or rhonchi noted. ABDOMEN: soft. Nontender on exam. obese. non-distended, normoactive bowel sounds. No palpable organomegaly. MUSCULOSKELETAL: No joint swelling or deformity. EXTREMITIES: No cyanosis, clubbing, or pedal edema. NEUROLOGICAL: Gross neurological examination did not reveal any focal deficits. SKIN: No rashes. Assessment: Acute psychosis Diabetes mellitus GERD Hyperlipidemia Hypertension Mechanical valve history maintained on Coumadin Subtherapeutic INR due to noncompliance and patient has been refusing to take medications History of anxiety/bipolar depression with PTSD Full code Plan: Recommend to continue with current medications and management with psychiatric services following. Patient was petitioned and certed as involuntary admission to [facility] for further psychiatric evaluation Patient continues to report that she is and has been refusing medications including her Coumadin. Per nursing staff patient is refusing multiple other medications. Nursing staff present on exam and discussed the importance of continuing with Lovenox injections twice daily for her mechanical heart valve as her INR is currently 1.0. Patient reports she is agreeable with this. Recommend Accu-Cheks before meals and at bedtime and will add sliding scale as needed Encourage the patient to attend group therapy meetings and be compliant with medications and psychiatric evaluations Patient does not currently have a primary care provider as she removed herself from the practice of Dr. Sameer Moreau she reports and was working on establishing with a new primary care provider. Patient has yet to do so and has had 2 more hospitalizations since this was discussed. Patient will need resources for PCP in the outpatient setting Would recommend close INR monitoring until therapeutic of an INR between 2-3 Thank you kindly for this consultation. The impression and plan of care has been dictated by Zoe Archer, nurse practitioner as directed. Dr. Shobha MD I have performed a history and examination and MDM of this patient, discussed the same with the dictator, and agree with the dictator's assessment and plan as written ,documented as a scribe. Based on total visit time, I have performed more than 50% of the visit. Any additional findings or plans will be noted. Past Medical History Past Medical History: Diabetes Mellitus, GERD/Reflux, Hyperlipidemia, Hypertension, Pneumonia, Sleep Apnea/CPAP/BIPAP, Thyroid Disorder Additional Past Medical History / Comment(s): IDDM type II, neuropathy bilateral feet, rheumatic fever at age 11yrs/scar tissue on valve, aortic valve replacement (mechanical), pt states she had a blood clot around aortic valve prior to surgery, POLLO but does not tolerate Cpap, constipation, L ovarian cyst, hypothyroid., states infection left knee. History of Any Multi-Drug Resistant Organisms: None Reported, MRSA Date of last positivie culture/infection: None MDRO Source:: None Past Surgical History: Appendectomy, Cardiac Valve Replacement, Section, Joint Replacement, Orthopedic Surgery Additional Past Surgical History / Comment(s): BLANCA, aortic valve replacement (mechanical), L total knee arthroplasty, L foot bunionectomy, EGDs, colonoscopy. Past Anesthesia/Blood Transfusion Reactions: Previous Problems w/ Anesthesia Additional Past Anesthesia/Blood Transfusion Reaction / Comment(s): Stopped breathing when a EGD was done Past Psychological History: Anxiety, Bipolar, Depression, PTSD Additional Psychological History / Comment(s): She uses a cane to ambulate and occasionally a walker. She does not have a front end driver's license, she gets to [facility] by bus or her sister. Smoking Status: Never smoker, Unknown if ever smoked Past Alcohol Use History: None Reported Additional Past Alcohol Use History / Comment(s): . Past Drug Use History: None Reported - Past Family History Father Additional Family Medical History / Comment(s): Bipolar and ETOH abuse. Mother Additional Family Medical History / Comment(s): ETOH abuse. Medications and Allergies Home Medications Medication Instructions Recorded Confirmed Type Levothyroxine Sodium 125 mcg PO DAILY 06/08/22 01/30/23 History Atorvastatin [Lipitor] 80 mg PO DAILY 06/29/22 01/30/23 History Metoprolol Succinate (ER) [Toprol 50 mg PO DAILY 01/10/23 01/30/23 History XL] Warfarin [Coumadin] 7.5 mg PO MOFR 01/10/23 01/30/23 History Acetaminophen Tab [Tylenol] 650 mg PO Q6HR PRN tab 01/15/23 01/30/23 Rx LORazepam [Ativan] 0.5 mg PO Q6HR PRN tab 01/15/23 01/30/23 Rx Loratadine [Claritin] 10 mg PO DAILY tab 01/15/23 01/30/23 Rx lisinopriL [Zestril] 20 mg PO DAILY tab 01/15/23 01/30/23 Rx Ascorbic Acid [Vitamin C] 500 mg PO DAILY #30 tab 01/24/23 01/30/23 Rx Cholecalciferol [Vitamin D3 (25 50 mcg PO DAILY 30 Days #60 tab 01/24/23 01/30/23 Rx Mcg = 1000 Iu)] Pseudoephedrine 12Hr [Sudafed 12 120 mg PO Q12HR #20 tab 01/24/23 01/30/23 Rx Hour] Ziprasidone [Geodon] 40 mg PO AC-BID 30 Days #60 cap 01/24/23 01/30/23 Rx Warfarin [Coumadin] 5 mg PO SUTUWETHSA 01/29/23 01/30/23 History Enoxaparin [Lovenox] 80 mg SQ BID 7 Days #14 each 01/30/23 01/30/23 Rx INSULIN ASPART (NovoLOG) [NovoLOG 0 unit SQ ACHS each 01/30/23 01/30/23 Rx (formulary)] clonazePAM [KlonoPIN] 0.5 mg PO BID tab 01/30/23 01/30/23 Rx Allergies Allergy/AdvReac Type Severity Reaction Status Date / Time codeine AdvReac UPSET Verified 01/30/23 21:59 STOMACH Physical Exam Vitals: Vital Signs Temp Pulse Resp BP 01/31/23 08:06 98.3 F 89 18 157/87 01/30/23 21:41 97.3 F L 88 20 174/102 Intake and Output 01/30/23 01/31/23 01/31/23 22:59 06:59 14:59 Other: Weight 80.059 kg Cranial Nerve Examination - Cranial Nerves Cranial Nerve I- Olfactory: Intact Cranial Nerve II- Optic: Intact Cranial Nerve III- Oculomotor: Intact Cranial Nerve IV- Trochlear: Intact Cranial Nerve V- Trigeminal: Intact Cranial Nerve - Abducens: Intact Cranial Nerve VII- Facial: Intact Cranial Nerve VIII- Auditory: Intact Cranial Nerve IX- Glossopharyngeal: Intact Cranial Nerve X- Vagus: Intact Cranial Nerve XI- Accessory: Intact Cranial Nerve XII- Hypoglossal: Intact Results Labs: Abnormal Lab Results - Last 24 Hours (Table) 01/30/23 01/31/23 Range/Units 21:41 07:57 POC Glucose (mg/dL) 145 H 155 H (70-110) mg/dL Assessment and Plan Time with Patient: Less than 30
[2023-01-31] MEDS: ZIPRASIDONE 20 MG CAP PO SCH (17:47)
[2023-01-31 17:52] LABS: Glucose,Whole Blood 115 mg/dL (70-110)
[2023-01-31] MEDS ORDERED: WARFARIN 7.5 MG TAB PO ONE (18:00)
[2023-01-31 20:03] LABS: Glucose,Whole Blood 143 mg/dL (70-110)
[2023-01-31] MEDS: VALPROIC ACID ORAL SOLN 250 MG/5 ML CUP PO SCH (20:07)
[2023-02-01] MEDS: LEVOTHYROXINE 125 MCG TAB PO SCH (06:39)
[2023-02-01 07:54] LABS: Glucose,Whole Blood 151 mg/dL (70-110)
[2023-02-01 08:26] LABS: Prothrombin Time 10.8 sec (9.0-12.0)
[2023-02-01] MEDS: INSULIN ASPART (NovoLOG) 100 UNIT/ML VIAL SQ SCH ×4 (08:57→19:59)
[2023-02-01] MEDS: CHOLECALCIFEROL 25 MCG (1000 IU) TABLET PO SCH (08:59)
[2023-02-01] MEDS: ASCORBIC ACID 500 MG TAB PO SCH (08:59)
[2023-02-01] MEDS: METOPROLOL SUCCINATE (ER) 50 MG TAB.ER.24H PO SCH (09:30)
[2023-02-01] MEDS: NICOTINE 14MG/24HR PATCH TRANSDERM SCH (09:30)
[2023-02-01] MEDS: ATORVASTATIN 80 MG TAB PO SCH (09:30)
[2023-02-01] MEDS: ZIPRASIDONE 20 MG CAP PO SCH ×3 (09:30→18:16)
[2023-02-01] MEDS: lisinopriL 20 MG TAB PO SCH (09:30)
[2023-02-01] MEDS: ENOXAPARIN 80 MG/0.8 ML SYRINGE SQ SCH ×2 (09:30→19:59)
[2023-02-01] MEDS: LORATADINE 10 MG TAB PO SCH (09:30)
[2023-02-01] MEDS: clonazePAM 0.5 MG TAB PO SCH ×2 (09:30→20:00)
[2023-02-01 12:44] LABS: Glucose,Whole Blood 105 mg/dL (70-110)
[2023-02-01] MEDS: flUPHENAZine 2.5 MG/ML (MDV) 10 ML VIAL IM PRN (13:46)
[2023-02-01] MEDS: hydrOXYzine HCL 50 MG/ML 1 ML VIAL IM PRN (13:47)
[2023-02-01] MEDS ORDERED: WARFARIN 10 MG TAB PO ONE (18:00)
[2023-02-01] MEDS: LORazepam 0.5 MG TAB PO PRN (18:16)
[2023-02-01 19:55] LABS: Glucose,Whole Blood 178 mg/dL (70-110)
[2023-02-01] MEDS: VALPROIC ACID ORAL SOLN 250 MG/5 ML CUP PO SCH (20:01)
[2023-02-02] MEDS: LEVOTHYROXINE 125 MCG TAB PO SCH (06:38)
[2023-02-02 07:07] LABS: Prothrombin Time 10.5 sec (9.0-12.0)
[2023-02-02 07:58] LABS: Glucose,Whole Blood 164 mg/dL (70-110)
[2023-02-02] MEDS: ZIPRASIDONE 20 MG CAP PO SCH ×2 (08:02→17:53)
[2023-02-02] MEDS: INSULIN ASPART (NovoLOG) 100 UNIT/ML VIAL SQ SCH ×4 (08:02→20:33)
[2023-02-02] MEDS: lisinopriL 20 MG TAB PO SCH (08:05)
[2023-02-02] MEDS: clonazePAM 0.5 MG TAB PO SCH ×2 (08:05→20:32)
[2023-02-02] MEDS: CHOLECALCIFEROL 25 MCG (1000 IU) TABLET PO SCH (08:05)
[2023-02-02] MEDS: LORATADINE 10 MG TAB PO SCH (08:05)
[2023-02-02] MEDS: ASCORBIC ACID 500 MG TAB PO SCH (08:05)
[2023-02-02] MEDS: ATORVASTATIN 80 MG TAB PO SCH (08:06)
[2023-02-02] MEDS: ENOXAPARIN 80 MG/0.8 ML SYRINGE SQ SCH ×2 (08:06→20:32)
[2023-02-02] MEDS: NICOTINE 14MG/24HR PATCH TRANSDERM SCH (08:06)
[2023-02-02] MEDS: METOPROLOL SUCCINATE (ER) 50 MG TAB.ER.24H PO SCH (08:06)
[2023-02-02 13:09] LABS: Glucose,Whole Blood 109 mg/dL (70-110)
[2023-02-02] MEDS: LORazepam 0.5 MG TAB PO PRN (15:16)
[2023-02-02] MEDS: VALPROIC ACID ORAL SOLN 250 MG/5 ML CUP PO SCH ×2 (15:32→20:34)
--- NOTE | 2023-02-02 15:43 | P.PN ---
Progress Note - Text Progress Note Date: 02/02/23 Interval history: Patient was seen knocking on the psychiatrist's office door, demanding to be discharged. Patient is grossly psychotic and religiously preoccupied. She denies being today but states "we are standing at [facility]'s gate" and I need to hurry and discharge her because "they are coming", asks if I hear the music being played in the hallway (there is no music). She believes the music is being played to lead her to the [facility] where she believes she will be going today to be "Ricardo's ". She turns and asks me if I can see her can "wings". She believes Dr. Stephens told her she would be discharged today (he did not). Her insight and judgment are poor. She slept at least 6-8 hour last night. At this time patient denies any suicidal or homicidal ideation, intent or plan. She is clearly having auditory or visual hallucinations, is attending to internal stimuli. She refused most of her medications yesterday but is taking them so far today. Patient denies any side effects from the medications. Mental status exam: General Appearance: Patient appears to be stated age, dressed in hospital gown, long berkowitz hair combed. Behavior: Intrusive, demanding to be discharged Speech: Patient's speech is fluent, loud, with normal rate, non-pressured, with demanding tone. Mood/Affect: Mood is elevated, affect is restricted in range. Suicidality/Homicidality: Patient denies having any suicidal or homicidal ideation intent or plan. Perceptions: Patient endorses auditory and visual hallucinations people come down the hallway playing music to lead her to the [facility] where she will become Ricardo's . Though content/process: There is evidence of delusional thought content, adventist preoccupation. Thought process is organized but goes on tangents on delusional thought content. Memory and concentration: AOX3, grossly intact for the purposes of this session Judgment and insight: improving mildly Assessment/Plan: Continue with current diagnosis. Patient continues to meet criteria for inpatient psychiatric admission for symptom stabilization and safety. Increase Depakene liquid from 500 mg QHS to 500 mg BID for mood stabilization. Continue cross-titration off Geodon and onto Prolixin. Monitor for medication compliance and for any psychotropic medication side effects. Will continue to monitor ongoing response to treatment. Encouraged participation in milieu.
[2023-02-02] MEDS ORDERED: ZIPRASIDONE 20 MG CAP PO SCH (17:30)
[2023-02-02 17:49] LABS: Glucose,Whole Blood 124 mg/dL (70-110)
[2023-02-02] MEDS ORDERED: WARFARIN 10 MG TAB PO ONE (18:00)
[2023-02-02 20:25] LABS: Glucose,Whole Blood 163 mg/dL (70-110)
[2023-02-03] MEDS: LEVOTHYROXINE 125 MCG TAB PO SCH (05:41)
[2023-02-03 06:53] LABS: INR 1.1 (<1.2); Prothrombin Time 11.7 sec (9.0-12.0)
[2023-02-03 08:15] LABS: Glucose,Whole Blood 146 mg/dL (70-110)
[2023-02-03] MEDS: METOPROLOL SUCCINATE (ER) 50 MG TAB.ER.24H PO SCH (08:36)
[2023-02-03] MEDS: ATORVASTATIN 80 MG TAB PO SCH (08:36)
[2023-02-03] MEDS: clonazePAM 0.5 MG TAB PO SCH ×2 (08:36→20:05)
[2023-02-03] MEDS: lisinopriL 20 MG TAB PO SCH (08:36)
[2023-02-03] MEDS: CHOLECALCIFEROL 25 MCG (1000 IU) TABLET PO SCH (08:36)
[2023-02-03] MEDS: LORATADINE 10 MG TAB PO SCH (08:36)
[2023-02-03] MEDS: ASCORBIC ACID 500 MG TAB PO SCH (08:36)
[2023-02-03] MEDS: ZIPRASIDONE 20 MG CAP PO SCH ×2 (08:36→17:53)
[2023-02-03] MEDS: VALPROIC ACID ORAL SOLN 250 MG/5 ML CUP PO SCH ×2 (08:36→20:05)
[2023-02-03] MEDS: ENOXAPARIN 80 MG/0.8 ML SYRINGE SQ SCH ×2 (08:38→20:05)
[2023-02-03] MEDS: NICOTINE 14MG/24HR PATCH TRANSDERM SCH ×2 (09:14→09:27)
[2023-02-03] MEDS: INSULIN ASPART (NovoLOG) 100 UNIT/ML VIAL SQ SCH ×4 (09:15→20:50)
[2023-02-03] MEDS: LORazepam 0.5 MG TAB PO PRN (09:30)
[2023-02-03 12:47] LABS: Glucose,Whole Blood 133 mg/dL (70-110)
[2023-02-03] MEDS: hydrOXYzine pamoate 25 MG CAP PO PRN (13:09)
[2023-02-03 17:53] LABS: Glucose,Whole Blood 117 mg/dL (70-110)
[2023-02-03] MEDS ORDERED: WARFARIN 5 MG TAB PO ONE (18:00)
[2023-02-03 20:05] LABS: Glucose,Whole Blood 131 mg/dL (70-110)
--- NOTE | 2023-02-03 22:44 | P.PN ---
Progress Note - Text Progress Note Date: 02/03/23 Interval history: Patient was seen at the nurse's station taking her medications. She appears less manic today since increasing her Depakote yesterday, but is still grossly delusional. She has been arguing with the nurses about not wanting to take her Coumadin because she is "", and also there is an "evil force", and that Coumadin 20 mg is too much, it will cause her "a tumor and on the spot". Her insight and judgment are poor. At this time patient denies any suicidal or homicidal ideation, intent or plan. She denies auditory or visual hallucinations, but is clearly having delusional thought content and at times attending to internal stimuli. She is taking most of her medications so far today. Patient denies any side effects from the medications. Mental status exam: General Appearance: Patient appears to be stated age, dressed in hospital gown, long berkowitz hair combed. Behavior: Intrusive, argumentative Speech: Patient's speech is fluent, with normal rate, non-pressured Mood/Affect: Mood is irritable, affect is restricted in range. Suicidality/Homicidality: Patient denies having any suicidal or homicidal ideation intent or plan. Perceptions: Patient denies auditory and visual hallucinations, but there is concern she is attending to internal stimuli. Though content/process: There is evidence of delusional thought content, mormon preoccupation. Thought process is somewhat disorganized. Memory and concentration: AOX3, grossly intact for the purposes of this session Judgment and insight: poor Assessment/Plan: Continue with current diagnosis. Patient continues to meet criteria for inpatient psychiatric admission for symptom stabilization and safety. Continue Depakene liquid 500 mg BID for mood stabilization. Continue cross-titration off Geodon and onto Prolixin. Increase Prolixin to 2.5 mg TID +5 mg QID (total 25 mg daily) to 2.5 mg TID +5 mg QID (total 27.5 mg daily) for psychosis. Monitor for medication compliance and for any psychotropic medication side effects. Will continue to monitor ongoing response to treatment. Encouraged participation in milieu.
--- NOTE | 2023-02-03 22:51 | P.PN ---
Progress Note - Text Progress Note Date: 02/01/23 Interval history: (Late entry due to computer problems on 02/01/23) Patient was seen leaving her room and on her way to her meal. She is somewhat dismissive and is not interested in speaking with the doctor. She reports she is and is refusing medications. She claims her mood is "great", sleep is "Ok", however staff reports she was awake most of the night. She has been refusing most of her medications, and walks away telling me to leave her alone when encouraging her take her medications and ensuring her she is not . She is observed talking to herself and attending to internal stimuli. At this time patient denies any suicidal or homicidal ideation, intent or plan. Denies any auditory or visual hallucinations. Patient denies any side effects from the medications and has been compliant with meds. Mental status exam: General Appearance: Patient appears to be stated age, dressed in hospital gown, long berkowitz hair combed. Behavior: Dismissive, guarded Speech: Patient's speech is fluent, with normal rate, non-pressured. Mood/Affect: Mood is irritable, affect is restricted in range. Suicidality/Homicidality: Patient denies having any suicidal or homicidal ideation intent or plan. Perceptions: Patient denies auditory and visual hallucinations but is clearly attending to internal stimuli. Though content/process: There is evidence of delusional thought content, believes she is . Thought process is organized but goes on tangents on delusional thought content. Memory and concentration: AOX3, grossly intact for the purposes of this session Judgment and insight: poor Assessment/Plan: Continue with current diagnosis. Patient continues to meet criteria for inpatient psychiatric admission for symptom stabilization and safety. Patient will be maintained on current psychotropic medication regimen. Encouraged medication compliance. Monitor for medication compliance and for any psychotropic medication side effects. Will continue to monitor ongoing response to treatment. Encouraged participation in milieu.
[2023-02-04] MEDS: LEVOTHYROXINE 125 MCG TAB PO SCH (06:31)
[2023-02-04 07:00] LABS: INR 1.2 (<1.2)
[2023-02-04] MEDS: INSULIN ASPART (NovoLOG) 100 UNIT/ML VIAL SQ SCH ×4 (07:29→20:19)
[2023-02-04 08:01] LABS: Glucose,Whole Blood 158 mg/dL (70-110)
[2023-02-04] MEDS: ASCORBIC ACID 500 MG TAB PO SCH (09:13)
[2023-02-04] MEDS: ZIPRASIDONE 20 MG CAP PO SCH ×2 (09:13→17:41)
[2023-02-04] MEDS: ATORVASTATIN 80 MG TAB PO SCH (09:14)
[2023-02-04] MEDS: clonazePAM 0.5 MG TAB PO SCH ×2 (09:14→20:17)
[2023-02-04] MEDS: CHOLECALCIFEROL 25 MCG (1000 IU) TABLET PO SCH (09:14)
[2023-02-04] MEDS: METOPROLOL SUCCINATE (ER) 50 MG TAB.ER.24H PO SCH (09:15)
[2023-02-04] MEDS: lisinopriL 20 MG TAB PO SCH (09:15)
[2023-02-04] MEDS: LORATADINE 10 MG TAB PO SCH (09:15)
[2023-02-04] MEDS: VALPROIC ACID ORAL SOLN 250 MG/5 ML CUP PO SCH ×2 (09:16→20:17)
[2023-02-04] MEDS: NICOTINE 14MG/24HR PATCH TRANSDERM SCH (09:16)
[2023-02-04] MEDS: ENOXAPARIN 80 MG/0.8 ML SYRINGE SQ SCH ×2 (09:18→20:17)
[2023-02-04 12:58] LABS: Glucose,Whole Blood 115 mg/dL (70-110)
[2023-02-04 17:45] LABS: Glucose,Whole Blood 139 mg/dL (70-110)
[2023-02-04] MEDS ORDERED: WARFARIN 5 MG TAB PO ONE (18:00)
--- NOTE | 2023-02-04 19:39 | P.PN ---
Progress Note - Text Progress Note Date: 02/04/23 Interval history: Patient was seen in her room today. Her thoughts are disorganized with flight of ideas. She claims she is calmer and doing "pretty good". Insight and judgment remain poor. She reports she is and there is an "Evil" presence on the unit that she needs to take care of. At this time patient denies any suicidal or homicidal ideation, intent or plan. She denies auditory or visual hallucinations, but is clearly having delusional thought content and at times attending to internal stimuli. She is taking most of her medications so far today. Patient denies any side effects from the medications. When asked if she has tried Clozapine, she thinks maybe but does not recall if it was effective. Mental status exam: General Appearance: Patient appears to be stated age, dressed in hospital gown, long berkowitz hair combed. Behavior: Intrusive, argumentative Speech: Patient's speech is fluent, with normal rate, non-pressured Mood/Affect: Mood is irritable, affect is restricted in range. Suicidality/Homicidality: Patient denies having any suicidal or homicidal ideation intent or plan. Perceptions: Patient denies auditory and visual hallucinations, but there is concern she is attending to internal stimuli. Though content/process: There is evidence of delusional thought content, anabaptist preoccupation. Thought process is somewhat disorganized. Memory and concentration: AOX3, grossly intact for the purposes of this session Judgment and insight: poor Assessment/Plan: Continue with current diagnosis. Patient continues to meet criteria for inpatient psychiatric admission for symptom stabilization and safety. Increase Depakene oral solution to 750 mg BID for don. Continue cross-titration off Geodon and onto Prolixin. Continue Prolixin to 2.5 mg TID +5 mg QID (total 25 mg daily) to 2.5 mg TID +5 mg QID (total 27.5 mg daily) for psychosis. Monitor for medication compliance and for any psychotropic medication side effects. Will continue to monitor ongoing response to treatment. Encouraged participation in milieu.
[2023-02-04 20:18] LABS: Glucose,Whole Blood 136 mg/dL (70-110)
[2023-02-05] MEDS: hydrOXYzine pamoate 25 MG CAP PO PRN (01:09)
[2023-02-05] MEDS: LEVOTHYROXINE 125 MCG TAB PO SCH (07:04)
[2023-02-05 07:50] LABS: Glucose,Whole Blood 123 mg/dL (70-110)
[2023-02-05 07:53] LABS: INR 1.8 (<1.2); Prothrombin Time 17.5 sec (9.0-12.0)
[2023-02-05] MEDS: INSULIN ASPART (NovoLOG) 100 UNIT/ML VIAL SQ SCH ×4 (08:38→20:25)
[2023-02-05] MEDS: METOPROLOL SUCCINATE (ER) 50 MG TAB.ER.24H PO SCH (08:48)
[2023-02-05] MEDS: ATORVASTATIN 80 MG TAB PO SCH (08:48)
[2023-02-05] MEDS: VALPROIC ACID ORAL SOLN 250 MG/5 ML CUP PO SCH ×2 (08:48→21:41)
[2023-02-05] MEDS: ZIPRASIDONE 20 MG CAP PO SCH (08:48)
[2023-02-05] MEDS: ENOXAPARIN 80 MG/0.8 ML SYRINGE SQ SCH ×2 (08:48→21:40)
[2023-02-05] MEDS: ASCORBIC ACID 500 MG TAB PO SCH (08:49)
[2023-02-05] MEDS: CHOLECALCIFEROL 25 MCG (1000 IU) TABLET PO SCH (08:49)
[2023-02-05] MEDS: LORATADINE 10 MG TAB PO SCH (08:49)
[2023-02-05] MEDS: lisinopriL 20 MG TAB PO SCH (08:49)
[2023-02-05] MEDS: clonazePAM 0.5 MG TAB PO SCH ×2 (08:49→21:40)
[2023-02-05] MEDS: NICOTINE 14MG/24HR PATCH TRANSDERM SCH (08:55)
--- NOTE | 2023-02-05 11:18 | P.HP ---
Psychiatric H&P - . H&P Date: 01/31/23 (H&P performed on 01/31/2023. ) History & Physical: Allergies Allergy/AdvReac Type Severity Reaction Status Date / Time codeine AdvReac UPSET Verified 01/30/23 21:59 STOMACH Vital Signs Temp 97.4 F L 02/05/23 01:07 Pulse 97 02/05/23 01:07 Resp 17 02/05/23 01:07 BP 167/90 02/05/23 01:07 Pulse Ox 99 02/05/23 01:07 FiO2 Laboratory Last Values PT 17.5 sec (9.0-12.0) H 02/05/23 07:33 INR 1.8 (<1.2) H 02/05/23 07:33 POC Glucose (mg/dL) 123 mg/dL (70-110) H 02/05/23 07:48 POC Glu Surveillance Supervisor ID William Wyatt 02/05/23 07:48 02/05/23 11:17 IDENTIFYING DATA: This patient is a , unemployed, 62-year-old female with significant history of schizoaffective disorder, bipolar type who presents to the hospital on 01/28/2023 for abnormal behavior and psychiatric evaluation. HPI: Patient presented to the hospital on 01/28/2023 by EMS for psychiatric evaluation. Reportedly, the patient attempted to knock on a neighbor's door who then contacted the Pest Control Service Sales Agent's Department. She reports that the Pest Control Service Sales Agent brought her to the hospital for psychiatric evaluation. The patient was most recently admitted onto our psychiatric unit on 01/16/2023 and was subsequently transferred to the medical floor on 01/21/2023 due to concerns for uncontrolled PT/INR on Coumadin and hyponatremia. A psychiatric consult was placed and the patient was evaluated on 01/29/2023 however appeared stable at the time. During that evaluation, the patient's Tegretol was held due to concerns for hyponatremia and she was continued on Geodon. However, the patient regressed back into a manic episode and psychiatry was reconsult to evaluate the patient on 01/30/2023. This time however, the patient was endorsing significant grandio se delusions including the belief that she was . Due to this belief, the patient began refusing necessary medical medications including her Coumadin. The patient was subsequently petitioned and certified and admitted onto the psychiatric unit. Upon evaluation on the psychiatric unit, the patient appeared to be grossly manic. She was often singing to herself and saying that God was speaking to her. She appeared to be responding to internal stimuli. She was also refusing her medications intermittently stating that she would not take any medications if he would harm her baby. PAST PSYCHIATRIC HISTORY: Patient has a history of schizoaffective disorder, bipolar type. The patient has trialed numerous medications including Seroquel, Risperdal, Depakote, Thorazine, Prolixin decanoate, Zyprexa, Haldol, and Effexor. She was last discharged from our psychiatric unit last month on a regimen of Geodon and Tegretol on 01/21/2023. She has had numerous psychiatric hospitalizations. Patient denies any psychiatric outpatient follow-up. Patient denies any history of suicide attempts in the past. PMH: Past Medical History: Diabetes Mellitus, GERD/Reflux, Hyperlipidemia, Hypertension, Pneumonia, Sleep Apnea/CPAP/BIPAP, Thyroid Disorder Additional Past Medical History / Comment(s): IDDM type II, neuropathy bilateral feet, rheumatic fever at age 11yrs/scar tissue on valve, aortic valve replacement (mechanical), pt states she had a blood clot around aortic valve prior to surgery, POLLO but does not tolerate Cpap, constipation, L ovarian cyst, hypothyroid., states infection left knee. History of Any Multi-Drug Resistant Organisms: None Reported Date of last positivie culture/infection: 2013 Past Surgical History: Appendectomy, Cardiac Valve Replacement, Section, Joint Replacement, Orthopedic Surgery Additional Past Surgical History / Comment(s): BLANCA, aortic valve replacement (mechanical), L total knee arthroplasty, L foot bunionectomy, EGDs, colonoscopy. Past Anesthesia/Blood Transfusion Reactions: Previous Problems w/ Anesthesia Additional Past Anesthesia/Blood Transfusion Reaction / Comment(s): Stopped breathing when a EGD was done Past Psychological History: Anxiety, Bipolar, Depression, PTSD Smoking Status: Unknown if ever smoked Past Alcohol Use History: None Reported Past Drug Use History: None Reported ALLERGIES: Allergies Allergy/AdvReac Type Severity Reaction Status Date / Time codeine AdvReac UPSET Verified 01/30/23 21:59 STOMACH CHEMICAL DEPENDENCY HISTORY: Patient denies any tobacco, alcohol, marijuana, or illicit drug use. FAMILY PSYCHIATRIC/SUBSTANCE USE HISTORY: Mother and father- alcoholics Sister- bipolar, schizophrenia Son-psychosis Daughter-anxiety SOCIAL HISTORY: Patient was born and raised in [place], [place] and raised in the [address] area MENTAL STATUS EXAM: General Appearance: Patient appears to be stated age is alert, directable, and attempts to cooperate. Patient appears to have fair hygiene and grooming. Behavior: Patient displays psychomotor agitation. Speech: Patient's speech is pressured, loud, and nonlinear. Mood/Affect: Patient reports their mood is "blessed by God," affect is congruent and grandiose and expansive. Suicidality/Homicidality: Patient denies having any homicidal ideation intent or plan. Denies any suicidal ideations intent or plan Perceptions: Patient denies any visual hallucinations and denies any auditory hallucinations Though content/process: Patient appears to be grandiose, spanks internal stimuli, and very religiously preoccupied. Memory and concentration: Very poor Judgment and insight: Very poor STRENGTHS/WEAKNESSES: Unable to identify patient's strengths. Weakness is that the patient is nonadherent with treatment. INTELLECT: average IMPRESSIONS: Schizoaffective disorder, bipolar type PLAN: -Patient is admitted under involuntary status to [facility] for stabilization of psychiatric symptoms and safety. A second certification was completed and along with petition will be filed for court. -Medications : Will start patient on Depakene liquid 500 mg by mouth at bedtime for mood stabilization Again cross titration of Geodon to Prolixin with plans to transition to Prolixin decanoate. -Ativan and Prolixin PRN for agitation/aggression -Patient was counselled on substance abuse and desired to cut back on use -Patient was informed of the risks, benefits and side effects of the medication however due to her don is unable to properly consent to medications. -Internal Medicine consult to perform medical evaluation and physical. -NRT - nicotine patch -SW on board for discharge planning. Encourage patient to participate in groups to work on coping skills. 02/05/23 11:17 02/05/23 11:18
--- NOTE | 2023-02-05 11:25 | P.PN ---
Progress Note - Text Progress Note Date: 02/05/23 Interval History: Patient was seen resting in bed and was directable and agreeable to speak with technical writer and editor in her room. The patient refused her full dose of Depakote stating that she heard my voice tell her to not take the medication. She continues to report that she feels like she is today. She reports that she is with "God's baby." She is noted by staff and this provider to respond to internal stimuli. She is otherwise not reporting any suicidal or homicidal ideation, intention, and/or plan. She is not reporting any overt auditory or visual hallucinations. She is intermittently adherent with her medications however is not endorsing any significant side effects. Mental Status Exam: General Appearance: Patient appears to be stated age is alert, directable, and cooperative. Behavior: Patient is calmly lying down in bed without any agitated behavior. She does appear to be responding to internal stimuli. Speech: Patient's speech is fluent and nonpressured. Mood/Affect: Mood is "feeling very good and ready to go." Affect is expansive, euphoric. Suicidality/Homicidality: Patient denies having any suicidal or homicidal ideation intent or plan. Perceptions: Patient denies any visual hallucinations but admits to auditory hallucinations. Though content/process: Patient endorses bizarre and grandiose delusional thoughts. Believe she is . Memory and concentration: AOX3, grossly intact for the purposes of this session Judgment and insight: Very poor Vital Signs Temp 97.4 F L 02/05/23 01:07 Pulse 97 02/05/23 01:07 Resp 17 02/05/23 01:07 BP 167/90 02/05/23 01:07 Pulse Ox 99 02/05/23 01:07 FiO2 Laboratory Results - Last 24 Hours 02/04/23 02/04/23 02/04/23 12:57 17:44 20:16 PT INR POC Glucose (mg/dL) 115 H 139 H 136 H POC Glu Roll Grinder ID Jermaine Leija, Elisa Crooks 02/05/23 02/05/23 07:33 07:48 PT 17.5 H INR 1.8 H POC Glucose (mg/dL) 123 H POC Glu Roll Grinder ID William Wyatt Assessment Schizoaffective disorder, bipolar type Plan: -Patient continues to meet criteria for inpatient psychiatric admission for symptom stabilization and safety. A demand will be filed for court as the patient is nonadherent to treatment. -Medications: Increase Prolixin to 7.5 mg four times daily for psychosis/mood stabilziation Discontinue Geodon. Continue Depakene oral solution 750 mg by mouth twice a day for don -When necessary Ativan and Prolixin for agitation/aggression. -SW on board for discharge planning. Encouraged the patient to participate in milieu.
[2023-02-05] MEDS: flUPHENAZine 2.5 MG/ML (MDV) 10 ML VIAL IM PRN (11:55)
[2023-02-05] MEDS ORDERED: LORazepam 2 MG/ML INJ IM STA (12:01)
[2023-02-05] MEDS: hydrOXYzine HCL 50 MG/ML 1 ML VIAL IM PRN (12:07)
[2023-02-05 12:45] LABS: Glucose,Whole Blood 108 mg/dL (70-110)
[2023-02-05] MEDS: MAG HYDROX/AL HYDROX/SIMETH 30 ML CUP PO PRN (16:52)
[2023-02-05] MEDS ORDERED: WARFARIN 10 MG TAB PO ONE (18:00)
[2023-02-05 20:14] LABS: Glucose,Whole Blood 189 mg/dL (70-110)
[2023-02-06] MEDS: LEVOTHYROXINE 125 MCG TAB PO SCH (06:05)
[2023-02-06 07:36] LABS: Glucose,Whole Blood 124 mg/dL (70-110)
[2023-02-06] MEDS: VALPROIC ACID ORAL SOLN 250 MG/5 ML CUP PO SCH ×2 (08:35→20:13)
[2023-02-06] MEDS: ATORVASTATIN 80 MG TAB PO SCH (08:35)
[2023-02-06] MEDS: CHOLECALCIFEROL 25 MCG (1000 IU) TABLET PO SCH (08:35)
[2023-02-06] MEDS: clonazePAM 0.5 MG TAB PO SCH ×2 (08:35→20:14)
[2023-02-06] MEDS: lisinopriL 20 MG TAB PO SCH (08:35)
[2023-02-06] MEDS: METOPROLOL SUCCINATE (ER) 50 MG TAB.ER.24H PO SCH (08:36)
[2023-02-06] MEDS: ASCORBIC ACID 500 MG TAB PO SCH (08:36)
[2023-02-06] MEDS: LORATADINE 10 MG TAB PO SCH (08:36)
[2023-02-06] MEDS: ENOXAPARIN 80 MG/0.8 ML SYRINGE SQ SCH ×2 (08:39→20:14)
[2023-02-06] MEDS: NICOTINE 14MG/24HR PATCH TRANSDERM SCH (08:39)
[2023-02-06] MEDS: INSULIN ASPART (NovoLOG) 100 UNIT/ML VIAL SQ SCH ×4 (08:39→20:21)
[2023-02-06] MEDS ORDERED: LORazepam 2 MG/ML INJ IV PRN (09:34)
[2023-02-06] MEDS ORDERED: LORazepam 2 MG/ML INJ IM PRN (09:35)
--- NOTE | 2023-02-06 11:21 | P.PN ---
Progress Note - Text Progress Note Date: 02/06/23 Interval History: Patient was seen resting in bed and was directable and agreeable to speak with process description writer in her room. The patient has been adherent with her medications but reports mild stomach pain as a side effect. She is however not endorsing any suicidal or homicidal ideation, intention, and/or plan. She is currently denying any overt auditory or visual hallucinations. The patient believed that she was going to court today however court has been rescheduled for next week. She is very upset at this and is very tearful. She continues to be religiously preoccupied and speaks of being with God's baby. She is however agreeable to transitioning to Prolixin Decanoate. She denies any chest pain, SOB, or other medical concerns aside from her stomach pain. Mental Status Exam: General Appearance: Patient appears to be stated age is alert, directable, and cooperative. Behavior: Patient is calmly lying down in bed without any agitated behavior. Tearful. Speech: Patient's speech is fluent and nonpressured. Mood/Affect: Mood is "I don't think I need to be here. I need to be discharged." Affect is tearful and expansive. Suicidality/Homicidality: Patient denies having any suicidal or homicidal ideation intent or plan. Perceptions: Patient denies any visual hallucinations but admits to auditory hallucinations. Though content/process: Patient endorses bizarre and grandiose delusional thoughts. Believe she is . Memory and concentration: AOX3, grossly intact for the purposes of this session Judgment and insight: Mildly improving Vital Signs Temp 98.3 F 02/06/23 06:33 Pulse 85 02/06/23 06:33 Resp 20 02/06/23 06:33 BP 165/93 02/06/23 06:33 Pulse Ox 99 02/06/23 06:33 FiO2 Laboratory Results PT 17.5 sec (9.0-12.0) H 02/05/23 07:33 INR 1.8 (<1.2) H 02/05/23 07:33 POC Glucose (mg/dL) 124 mg/dL (70-110) H 02/06/23 07:34 POC Glu Plug And Mold Finisher ID Tri Guerrero 02/06/23 07:34 Assessment Schizoaffective disorder, bipolar type Plan: -Patient continues to meet criteria for inpatient psychiatric admission for symptom stabilization and safety. A demand will be filed for court as the patient is nonadherent to treatment. -Medications: Increase Prolixin to 10 mg four times daily for psychosis/mood stabilization. Likely transition to Prolixin Decanoate tomorrow. Continue Depakene oral solution 750 mg by mouth twice a day for don. Will check Depakote level tomorrow. CBC and CMP ordered for tomorrow. EKG reviewed. QTc 466 ms. -When necessary Ativan and Prolixin for agitation/aggression. -SW on board for discharge planning. Encouraged the patient to participate in milieu.
[2023-02-06 11:54] LABS: INR 1.9 (<1.2); Prothrombin Time 18.3 sec (9.0-12.0)
[2023-02-06 13:00] LABS: Glucose,Whole Blood 136 mg/dL (70-110)
[2023-02-06] MEDS: MAG HYDROX/AL HYDROX/SIMETH 30 ML CUP PO PRN (17:37)
[2023-02-06 17:43] LABS: Glucose,Whole Blood 116 mg/dL (70-110)
[2023-02-06] MEDS ORDERED: WARFARIN 10 MG TAB PO ONE (18:00)
[2023-02-06 20:13] LABS: Glucose,Whole Blood 139 mg/dL (70-110)
[2023-02-07] MEDS: LEVOTHYROXINE 125 MCG TAB PO SCH (05:50)
[2023-02-07 07:14] LABS: Basophils % (A) 1 %; Eosinophils # (A) 0.1 k/uL (0-0.7); Eosinophils % (A) 3 %; HCT 31.1 % (34.0-46.0); HGB 11.1 gm/dL (11.4-16.0); Hyperchromasia Slight; Lymphocytes # (A) 0.5 k/uL (1.0-4.8); Lymphocytes % (A) 20 %; MCH 29.8 pg (25.0-35.0); MCHC 35.7 g/dL (31.0-37.0); MCV 83.4 fL (80.0-100.0); Mean Platelet Volume 7.2; Monocytes # (A) 0.2 k/uL (0-1.0); Monocytes % (A) 7 %; Neutrophils # (A) 1.7 k/uL (1.3-7.7); Neutrophils % (A) 67 %; Platelet Count 251 k/uL (150-450); RBC 3.72 m/uL (3.80-5.40); RDW 12.9 % (11.5-15.5); WBC 2.6 k/uL (3.8-10.6)
[2023-02-07 07:20] LABS: INR 1.7 (<1.2); Prothrombin Time 17.3 sec (9.0-12.0)
[2023-02-07 07:43] LABS: Glucose,Whole Blood 124 mg/dL (70-110)
[2023-02-07] MEDS: INSULIN ASPART (NovoLOG) 100 UNIT/ML VIAL SQ SCH ×4 (08:05→19:56)
[2023-02-07] MEDS: ASCORBIC ACID 500 MG TAB PO SCH (08:05)
[2023-02-07] MEDS: METOPROLOL SUCCINATE (ER) 50 MG TAB.ER.24H PO SCH (08:06)
[2023-02-07] MEDS: CHOLECALCIFEROL 25 MCG (1000 IU) TABLET PO SCH (08:06)
[2023-02-07] MEDS: clonazePAM 0.5 MG TAB PO SCH ×2 (08:06→19:53)
[2023-02-07] MEDS: ATORVASTATIN 80 MG TAB PO SCH (08:06)
[2023-02-07] MEDS: LORATADINE 10 MG TAB PO SCH (08:06)
[2023-02-07] MEDS: lisinopriL 20 MG TAB PO SCH (08:07)
[2023-02-07] MEDS: VALPROIC ACID ORAL SOLN 250 MG/5 ML CUP PO SCH ×2 (08:08→19:53)
[2023-02-07] MEDS: ENOXAPARIN 80 MG/0.8 ML SYRINGE SQ SCH ×3 (08:08→19:54)
[2023-02-07] MEDS: NICOTINE 14MG/24HR PATCH TRANSDERM SCH (08:09)
[2023-02-07 08:20] LABS: ALT 38 U/L (4-34); AST 31 U/L (14-36); African American GFR (CKD) >90 (>60 ml/min/1.73 sqM); Albumin 3.6 g/dL (3.5-5.0); Alkaline Phosphatase 58 U/L (38-126); Anion Gap 7 mmol/L; Blood Urea Nitrogen 13 mg/dL (7-17); Calcium 8.8 mg/dL (8.4-10.2); Carbon Dioxide 27 mmol/L (22-30); Chloride 94 mmol/L (98-107); Glucose 116 mg/dL (74-99); Non-African American GFR(CKD) >90 (>60 ml/min/1.73 sqM); Potassium 4.7 mmol/L (3.5-5.1); Sodium 128 mmol/L (137-145); Total Bilirubin 0.3 mg/dL (0.2-1.3); Total Protein 5.8 g/dL (6.3-8.2)
[2023-02-07] MEDS ORDERED: fluPHENAZine DECANOATE 25 MG/ML 5ML MDV IM ONE (10:28)
[2023-02-07 12:32] LABS: Glucose,Whole Blood 101 mg/dL (70-110)
--- NOTE | 2023-02-07 13:33 | P.PN ---
Progress Note - Text Progress Note Date: 02/07/23 Interval History: Patient was seen resting in bed and was directable and agreeable to speak with public relations writer in her room. The patient is currently denying any suicidal or homicidal ideation, intention, and/or plan. She is not reporting any auditory or visual hallucinations. She is denying any paranoia or other delusions. She expresses that she is not today. She does express a desire to sign waiver and stipulate court. She reports no issues regarding her sleep or her appetite. She does report mild epigastric pain. She attributes this to reflux. Mental Status Exam: General Appearance: Patient appears to be stated age is alert, directable, and cooperative. Behavior: Patient is calmly lying down in bed without any agitated behavior. Speech: Patient's speech is fluent and nonpressured. Mood/Affect: Mood is "I'm doing okay." Affect is constricted. Suicidality/Homicidality: Patient denies having any suicidal or homicidal ideation intent or plan. Perceptions: Patient denies any visual hallucinations but admits to auditory hallucinations. Though content/process: No delusional thought content is endorsing today. Her thought process appears to be linear and logical in short conversation. Memory and concentration: AOX3, grossly intact for the purposes of this session Judgment and insight: Mildly improving Vital Signs Temp 97.6 F 02/07/23 06:48 Pulse 86 02/07/23 08:10 Resp 20 02/07/23 08:10 BP 144/86 02/07/23 08:10 Pulse Ox 98 02/07/23 06:48 FiO2 Intake & Output 02/06/23 02/07/23 02/07/23 18:59 06:59 18:59 Intake Total 240 Balance 240 Intake: Oral 240 Laboratory Results WBC 2.6 k/uL (3.8-10.6) L 02/07/23 06:54 RBC 3.72 m/uL (3.80-5.40) L 02/07/23 06:54 Hgb 11.1 gm/dL (11.4-16.0) L 02/07/23 06:54 Hct 31.1 % (34.0-46.0) L 02/07/23 06:54 MCV 83.4 fL (80.0-100.0) 02/07/23 06:54 MCH 29.8 pg (25.0-35.0) 02/07/23 06:54 MCHC 35.7 g/dL (31.0-37.0) 02/07/23 06:54 RDW 12.9 % (11.5-15.5) 02/07/23 06:54 Plt Count 251 k/uL (150-450) 02/07/23 06:54 MPV 7.2 02/07/23 06:54 Neutrophils % 67 % 02/07/23 06:54 Lymphocytes % 20 % 02/07/23 06:54 Monocytes % 7 % 02/07/23 06:54 Eosinophils % 3 % 02/07/23 06:54 Basophils % 1 % 02/07/23 06:54 Neutrophils # 1.7 k/uL (1.3-7.7) 02/07/23 06:54 Lymphocytes # 0.5 k/uL (1.0-4.8) L 02/07/23 06:54 Monocytes # 0.2 k/uL (0-1.0) 02/07/23 06:54 Eosinophils # 0.1 k/uL (0-0.7) 02/07/23 06:54 Basophils # 0.0 k/uL (0-0.2) 02/07/23 06:54 Hyperchromasia Slight 02/07/23 06:54 PT 17.3 sec (9.0-12.0) H 02/07/23 06:54 INR 1.7 (<1.2) H 02/07/23 06:54 Sodium 128 mmol/L (137-145) L 02/07/23 06:54 Potassium 4.7 mmol/L (3.5-5.1) 02/07/23 06:54 Chloride 94 mmol/L (98-107) L 02/07/23 06:54 Carbon Dioxide 27 mmol/L (22-30) 02/07/23 06:54 Anion Gap 7 mmol/L 02/07/23 06:54 BUN 13 mg/dL (7-17) 02/07/23 06:54 Creatinine 0.60 mg/dL (0.52-1.04) 02/07/23 06:54 Est GFR (CKD-EPI)AfAm >90 (>60 ml/min/1.73 sqM) 02/07/23 06:54 Est GFR (CKD-EPI)NonAf >90 (>60 ml/min/1.73 sqM) 02/07/23 06:54 Glucose 116 mg/dL (74-99) H 02/07/23 06:54 POC Glucose (mg/dL) 101 mg/dL (70-110) 02/07/23 12:31 POC Glu Animal Surgeon ID Lynn Dominguez 02/07/23 12:31 Calcium 8.8 mg/dL (8.4-10.2) 02/07/23 06:54 Total Bilirubin 0.3 mg/dL (0.2-1.3) 02/07/23 06:54 AST 31 U/L (14-36) 02/07/23 06:54 ALT 38 U/L (4-34) H 02/07/23 06:54 Alkaline Phosphatase 58 U/L (38-126) 02/07/23 06:54 Total Protein 5.8 g/dL (6.3-8.2) L 02/07/23 06:54 Albumin 3.6 g/dL (3.5-5.0) 02/07/23 06:54 Assessment Schizoaffective disorder, bipolar type Plan: -Patient continues to meet criteria for inpatient psychiatric admission for symptom stabilization and safety. A demand will be filed for court as the patient is nonadherent to treatment. -Medications: Prolixin Decanoate 50 mg IM to be administered today. Discontinue oral Prolixin. Recommend that the patient receives a long-acting injectable every 14 days due to the severity of her symptoms. Continue Depakene oral solution 750 mg by mouth twice a day for don. Depakote level waiting. EKG reviewed. QTc 466 ms. -When necessary Ativan and Prolixin for agitation/aggression. -SW on board for discharge planning. Encouraged the patient to participate in milieu.
[2023-02-07 17:41] LABS: Glucose,Whole Blood 110 mg/dL (70-110)
[2023-02-07] MEDS ORDERED: WARFARIN 10 MG TAB PO ONE (18:00)
[2023-02-07 20:03] LABS: Glucose,Whole Blood 139 mg/dL (70-110)
[2023-02-08] MEDS: LEVOTHYROXINE 125 MCG TAB PO SCH (06:25)
[2023-02-08 07:27] LABS: INR 1.6 (<1.2); Prothrombin Time 16.4 sec (9.0-12.0)
[2023-02-08 07:52] LABS: Glucose,Whole Blood 117 mg/dL (70-110)
[2023-02-08] MEDS: INSULIN ASPART (NovoLOG) 100 UNIT/ML VIAL SQ SCH ×4 (07:54→20:43)
[2023-02-08] MEDS: VALPROIC ACID ORAL SOLN 250 MG/5 ML CUP PO SCH ×2 (08:32→20:43)
[2023-02-08] MEDS: ATORVASTATIN 80 MG TAB PO SCH (08:33)
[2023-02-08] MEDS: METOPROLOL SUCCINATE (ER) 50 MG TAB.ER.24H PO SCH (08:33)
[2023-02-08] MEDS: CHOLECALCIFEROL 25 MCG (1000 IU) TABLET PO SCH (08:33)
[2023-02-08] MEDS: lisinopriL 20 MG TAB PO SCH (08:34)
[2023-02-08] MEDS: clonazePAM 0.5 MG TAB PO SCH ×2 (08:34→20:42)
[2023-02-08] MEDS: ASCORBIC ACID 500 MG TAB PO SCH (08:34)
[2023-02-08] MEDS: LORATADINE 10 MG TAB PO SCH (08:34)
[2023-02-08] MEDS: NICOTINE 14MG/24HR PATCH TRANSDERM SCH (08:36)
[2023-02-08] MEDS: ENOXAPARIN 80 MG/0.8 ML SYRINGE SQ SCH ×2 (08:39→20:43)
--- NOTE | 2023-02-08 11:47 | P.PN ---
Progress Note - Text Progress Note Date: 02/08/23 Interval History: Patient was seen resting in bed and was directable and agreeable to speak with lyric writer in her room. The patient is currently denying any suicidal or homicidal ideation, intention, and/or plan. She is not reporting any auditory or visual hallucinations. She is denying any paranoia or other delusions. She reports no concern for . She reports no concern of the mafia. She wishes to be discharged. She would like to sign a waiver and stipulate court. Patient is requesting more water however was informed of her low sodium and our need to restrict water intake. Mental Status Exam: General Appearance: Patient appears to be stated age is alert, directable, and cooperative. Behavior: Patient is calmly lying down in bed without any agitated behavior. Speech: Patient's speech is fluent and nonpressured. Mood/Affect: Mood is "I just want to leave." Affect is constricted. Suicidality/Homicidality: Patient denies having any suicidal or homicidal ideation intent or plan. Perceptions: Patient denies any visual hallucinations but admits to auditory hallucinations. Though content/process: No delusional thought content is endorsing today. Her thought process appears to be linear and logical in short conversation. Fixated on water. Memory and concentration: AOX3, grossly intact for the purposes of this session Judgment and insight: Mildly improving Vital Signs Temp 97.5 F L 02/08/23 06:33 Pulse 79 02/08/23 06:33 Resp 16 02/08/23 06:33 BP 162/83 02/08/23 06:33 Pulse Ox 95 02/08/23 06:33 FiO2 Intake & Output 02/07/23 02/08/23 02/08/23 18:59 06:59 18:59 Intake Total 240 Balance 240 Intake: Oral 240 Laboratory Results WBC 2.6 k/uL (3.8-10.6) L 02/07/23 06:54 RBC 3.72 m/uL (3.80-5.40) L 02/07/23 06:54 Hgb 11.1 gm/dL (11.4-16.0) L 02/07/23 06:54 Hct 31.1 % (34.0-46.0) L 02/07/23 06:54 MCV 83.4 fL (80.0-100.0) 02/07/23 06:54 MCH 29.8 pg (25.0-35.0) 02/07/23 06:54 MCHC 35.7 g/dL (31.0-37.0) 02/07/23 06:54 RDW 12.9 % (11.5-15.5) 02/07/23 06:54 Plt Count 251 k/uL (150-450) 02/07/23 06:54 MPV 7.2 02/07/23 06:54 Neutrophils % 67 % 02/07/23 06:54 Lymphocytes % 20 % 02/07/23 06:54 Monocytes % 7 % 02/07/23 06:54 Eosinophils % 3 % 02/07/23 06:54 Basophils % 1 % 02/07/23 06:54 Neutrophils # 1.7 k/uL (1.3-7.7) 02/07/23 06:54 Lymphocytes # 0.5 k/uL (1.0-4.8) L 02/07/23 06:54 Monocytes # 0.2 k/uL (0-1.0) 02/07/23 06:54 Eosinophils # 0.1 k/uL (0-0.7) 02/07/23 06:54 Basophils # 0.0 k/uL (0-0.2) 02/07/23 06:54 Hyperchromasia Slight 02/07/23 06:54 PT 16.4 sec (9.0-12.0) H 02/08/23 06:51 INR 1.6 (<1.2) H 02/08/23 06:51 Sodium 128 mmol/L (137-145) L 02/07/23 06:54 Potassium 4.7 mmol/L (3.5-5.1) 02/07/23 06:54 Chloride 94 mmol/L (98-107) L 02/07/23 06:54 Carbon Dioxide 27 mmol/L (22-30) 02/07/23 06:54 Anion Gap 7 mmol/L 02/07/23 06:54 BUN 13 mg/dL (7-17) 02/07/23 06:54 Creatinine 0.60 mg/dL (0.52-1.04) 02/07/23 06:54 Est GFR (CKD-EPI)AfAm >90 (>60 ml/min/1.73 sqM) 02/07/23 06:54 Est GFR (CKD-EPI)NonAf >90 (>60 ml/min/1.73 sqM) 02/07/23 06:54 Glucose 116 mg/dL (74-99) H 02/07/23 06:54 POC Glucose (mg/dL) 117 mg/dL (70-110) H 02/08/23 07:51 POC Glu Nuclear Fuel Processing Technician Jermaine Alvarenga 02/08/23 07:51 Calcium 8.8 mg/dL (8.4-10.2) 02/07/23 06:54 Total Bilirubin 0.3 mg/dL (0.2-1.3) 02/07/23 06:54 AST 31 U/L (14-36) 02/07/23 06:54 ALT 38 U/L (4-34) H 02/07/23 06:54 Alkaline Phosphatase 58 U/L (38-126) 02/07/23 06:54 Total Protein 5.8 g/dL (6.3-8.2) L 02/07/23 06:54 Albumin 3.6 g/dL (3.5-5.0) 02/07/23 06:54 Assessment Schizoaffective disorder, bipolar type Psychogenic polydipsia Plan: -Patient continues to meet criteria for inpatient psychiatric admission for symptom stabilization and safety. A demand will be filed for court as the patient is nonadherent to treatment. -Medications: Prolixin Decanoate 50 mg IM to be administered on 02/08/2023. Discontinue oral Prolixin. Recommend that the patient receives a long-acting injectable every 14 days due to the severity of her symptoms. Continue Depakene oral solution 750 mg by mouth twice a day for don. Depakote level waiting. EKG reviewed. QTc 466 ms. -When necessary Ativan and Prolixin for agitation/aggression. -SW on board for discharge planning. Encouraged the patient to participate in milieu.
[2023-02-08 17:58] LABS: Glucose,Whole Blood 116 mg/dL (70-110)
[2023-02-08] MEDS ORDERED: WARFARIN 7.5 MG TAB PO ONE (18:00)
[2023-02-08 20:16] LABS: Glucose,Whole Blood 153 mg/dL (70-110)
[2023-02-09] MEDS: LEVOTHYROXINE 125 MCG TAB PO SCH (06:32)
[2023-02-09] MEDS: INSULIN ASPART (NovoLOG) 100 UNIT/ML VIAL SQ SCH ×4 (07:57→20:32)
[2023-02-09 07:59] LABS: Glucose,Whole Blood 127 mg/dL (70-110)
[2023-02-09] MEDS: CHOLECALCIFEROL 25 MCG (1000 IU) TABLET PO SCH (08:23)
[2023-02-09] MEDS: METOPROLOL SUCCINATE (ER) 50 MG TAB.ER.24H PO SCH (08:23)
[2023-02-09] MEDS: ASCORBIC ACID 500 MG TAB PO SCH (08:23)
[2023-02-09] MEDS: lisinopriL 20 MG TAB PO SCH (08:23)
[2023-02-09] MEDS: LORATADINE 10 MG TAB PO SCH (08:24)
[2023-02-09] MEDS: clonazePAM 0.5 MG TAB PO SCH ×2 (08:24→20:31)
[2023-02-09] MEDS: ATORVASTATIN 80 MG TAB PO SCH (08:24)
[2023-02-09] MEDS: VALPROIC ACID ORAL SOLN 250 MG/5 ML CUP PO SCH ×2 (08:25→20:31)
[2023-02-09] MEDS: ENOXAPARIN 80 MG/0.8 ML SYRINGE SQ SCH ×2 (08:26→20:32)
[2023-02-09 08:33] LABS: INR 2.1 (<1.2); Prothrombin Time 20.4 sec (9.0-12.0)
[2023-02-09 13:09] LABS: Glucose,Whole Blood 129 mg/dL (70-110)
--- NOTE | 2023-02-09 14:04 | P.PN ---
Progress Note - Text Progress Note Date: 02/09/23 Interval History: Patient was seen resting in bed and was directable and agreeable to speak with loan underwriter in her room. She says she is doing "perfect ". Patient has a delusion that she knows another patient on the unit. However, she calls them by another name and says his actual name is Rakesh Smith ZORAIDA. She says that she was to this person and that it did not end well. The patient is currently denying any suicidal or homicidal ideation, intention, and/or plan. She is not reporting any auditory or visual hallucinations. She is denying any paranoia or other delusions. She would like to sign a waiver and stipulate court. Patient is not requesting water. Mental Status Exam: General Appearance: Patient appears to be stated age is alert, directable, and cooperative. Behavior: Patient is calmly lying down in bed without any agitated behavior. Intense eye contact Speech: Patient's speech is fluent and nonpressured. Mood/Affect: Mood is "perfect." Affect is constricted. Suicidality/Homicidality: Patient denies having any suicidal or homicidal ideation intent or plan. Perceptions: Patient denies any visual hallucinations but admits to auditory hallucinations. Though content/process: Delusional. Her thought process appears to be linear and logical in short conversation. Memory and concentration: AOX3, grossly intact for the purposes of this session Judgment and insight: Mildly improving Temp 97.5 F L 02/08/23 06:33 Pulse 92 02/08/23 20:48 Resp 16 02/08/23 20:48 BP 149/80 02/08/23 20:48 Pulse Ox 95 02/08/23 06:33 FiO2 Assessment Schizoaffective disorder, bipolar type Psychogenic polydipsia Plan: -Patient continues to meet criteria for inpatient psychiatric admission for symptom stabilization and safety. A demand will be filed for court as the patient is nonadherent to treatment. -Medications: Prolixin Decanoate 50 mg IM to be administered on 02/08/2023. Recommend that the patient receives a long-acting injectable every 14 days due to the severity of her symptoms. Continue Depakene oral solution 750 mg by mouth twice a day for don. Depakote level waiting. EKG reviewed. QTc 466 ms. -When necessary Ativan and Prolixin for agitation/aggression. -SW on board for discharge planning. Encouraged the patient to participate in milieu.
[2023-02-09 17:57] LABS: Glucose,Whole Blood 139 mg/dL (70-110)
[2023-02-09] MEDS ORDERED: WARFARIN 10 MG TAB PO ONE (18:00)
[2023-02-09] MEDS ORDERED: WARFARIN 2.5 MG TAB PO ONE (18:00)
[2023-02-09 20:22] LABS: Glucose,Whole Blood 135 mg/dL (70-110)
[2023-02-10] MEDS: LEVOTHYROXINE 125 MCG TAB PO SCH (06:59)
[2023-02-10 07:46] LABS: Glucose,Whole Blood 127 mg/dL (70-110)
[2023-02-10] MEDS: INSULIN ASPART (NovoLOG) 100 UNIT/ML VIAL SQ SCH ×4 (08:38→20:23)
[2023-02-10] MEDS: VALPROIC ACID ORAL SOLN 250 MG/5 ML CUP PO SCH ×2 (08:39→20:22)
[2023-02-10] MEDS: clonazePAM 0.5 MG TAB PO SCH ×2 (08:40→20:22)
[2023-02-10] MEDS: lisinopriL 20 MG TAB PO SCH (08:40)
[2023-02-10] MEDS: ENOXAPARIN 80 MG/0.8 ML SYRINGE SQ SCH (08:40)
[2023-02-10] MEDS: CHOLECALCIFEROL 25 MCG (1000 IU) TABLET PO SCH (08:40)
[2023-02-10] MEDS: LORATADINE 10 MG TAB PO SCH (08:40)
[2023-02-10] MEDS: ASCORBIC ACID 500 MG TAB PO SCH (08:41)
[2023-02-10] MEDS: ATORVASTATIN 80 MG TAB PO SCH (08:41)
[2023-02-10] MEDS: METOPROLOL SUCCINATE (ER) 50 MG TAB.ER.24H PO SCH (08:41)
[2023-02-10 11:12] LABS: Prothrombin Time 28.9 sec (9.0-12.0)
[2023-02-10 13:07] LABS: Glucose,Whole Blood 156 mg/dL (70-110)
--- NOTE | 2023-02-10 14:27 | P.PN ---
Progress Note - Text Progress Note Date: 02/10/23 Interval History: Patient was seen resting in bed and was directable and agreeable to speak with underwriter in her room. She says she is doing "perfect ". She appears to be less delusional today. She states that she has been keeping to herself for the large part but was encouraged to go to groups. She reports having attended group last night but says that due to her hip pain, she has been resting today. Patient reports good sleep and appetite. She denies other concerns. The patient is cur rently denying any suicidal or homicidal ideation, intention, and/or plan. She is not reporting any auditory or visual hallucinations. She is denying any paranoia or other delusions. She would like to sign a waiver and stipulate court. She requested to water but was redirected that she cannot have high intake of water due to her sodium levels. She attempted to argue for more water. Mental Status Exam: General Appearance: Patient appears to be stated age is alert, directable, and cooperative. Behavior: Patient is calmly seated in bed without any agitated behavior. Intense eye contact Speech: Patient's speech is fluent and nonpressured. Mood/Affect: Mood is "perfect." Affect is constricted. Suicidality/Homicidality: Patient denies having any suicidal or homicidal ideation intent or plan. Perceptions: Patient denies any visual hallucinations but admits to auditory hallucinations. Though content/process: Less delusional. Her thought process appears to be linear and logical in short conversation. Memory and concentration: AOX3, grossly intact for the purposes of this session Judgment and insight: Mildly improving Assessment Schizoaffective disorder, bipolar type Psychogenic polydipsia Plan: -Patient continues to meet criteria for inpatient psychiatric admission for symptom stabilization and safety. A demand will be filed for court as the patient is nonadherent to treatment. -Medications: Prolixin Decanoate 50 mg IM to be administered on 02/08/2023. Recommend that the patient receives a long-acting injectable every 14 days due to the severity of her symptoms. Continue Depakene oral solution 750 mg by mouth twice a day for don. Depakote level waiting. EKG reviewed. QTc 466 ms. -When necessary Ativan and Prolixin for agitation/aggression. -SW on board for discharge planning. Encouraged the patient to participate in milieu.
[2023-02-10 17:48] LABS: Glucose,Whole Blood 110 mg/dL (70-110)
[2023-02-10] MEDS ORDERED: WARFARIN 7.5 MG TAB PO ONE (18:00)
[2023-02-10 20:22] LABS: Glucose,Whole Blood 156 mg/dL (70-110)
[2023-02-11] MEDS: LEVOTHYROXINE 125 MCG TAB PO SCH (06:25)
[2023-02-11] MEDS: INSULIN ASPART (NovoLOG) 100 UNIT/ML VIAL SQ SCH ×4 (07:47→20:28)
[2023-02-11 07:51] LABS: Glucose,Whole Blood 121 mg/dL (70-110)
[2023-02-11] MEDS: CHOLECALCIFEROL 25 MCG (1000 IU) TABLET PO SCH (07:52)
[2023-02-11] MEDS: LORATADINE 10 MG TAB PO SCH (07:52)
[2023-02-11] MEDS: METOPROLOL SUCCINATE (ER) 50 MG TAB.ER.24H PO SCH (07:52)
[2023-02-11] MEDS: clonazePAM 0.5 MG TAB PO SCH ×2 (07:52→20:28)
[2023-02-11] MEDS: ATORVASTATIN 80 MG TAB PO SCH (07:52)
[2023-02-11] MEDS: lisinopriL 20 MG TAB PO SCH (07:52)
[2023-02-11] MEDS: VALPROIC ACID ORAL SOLN 250 MG/5 ML CUP PO SCH ×2 (07:53→20:56)
[2023-02-11] MEDS: ASCORBIC ACID 500 MG TAB PO SCH (07:53)
[2023-02-11 11:45] LABS: INR 2.3 (<1.2); Prothrombin Time 22.2 sec (9.0-12.0)
--- NOTE | 2023-02-11 11:55 | P.PN ---
Progress Note - Text Progress Note Date: 02/11/23 Interval History: Patient was seen resting in bed and was directable and agreeable to speak with loan underwriter in her room. The patient is not endorsing any suicidal or homicidal ideation, intention, and/or plan. The patient reports no auditory or visual hallucinations. She reports no racing thoughts, mood lability, bizarre or grandiose delusions, or any other manic symptoms. She has been adherent with her medications and reports no side effects. She continues to express a desire for more liquid intake. She wishes to sign a waiver and stipulate court. Mental Status Exam: General Appearance: Patient appears to be stated age is alert, directable, and cooperative. Behavior: Patient is calmly lying down in bed without any agitated behavior. Speech: Patient's speech is fluent and nonpressured. Mood/Affect: Mood is "I feel ready to go." Affect is euthymic. Suicidality/Homicidality: Patient denies having any suicidal or homicidal ideation intent or plan. Perceptions: Patient denies any visual hallucinations but admits to auditory hallucinations. Though content/process: No delusional thought content is endorsing today. Her thought process appears to be linear and logical in short conversation. Fixated on water. Memory and concentration: AOX3, grossly intact for the purposes of this session Judgment and insight: Mildly improving Vital Signs Temp 97.7 F 02/11/23 06:27 Pulse 87 02/11/23 07:55 Resp 18 02/11/23 06:27 BP 158/83 02/11/23 07:55 Pulse Ox 98 02/11/23 06:27 FiO2 Intake & Output 02/10/23 02/11/23 02/11/23 18:59 06:59 18:59 Weight 81.6 kg Laboratory Results WBC 2.6 k/uL (3.8-10.6) L 02/07/23 06:54 RBC 3.72 m/uL (3.80-5.40) L 02/07/23 06:54 Hgb 11.1 gm/dL (11.4-16.0) L 02/07/23 06:54 Hct 31.1 % (34.0-46.0) L 02/07/23 06:54 MCV 83.4 fL (80.0-100.0) 02/07/23 06:54 MCH 29.8 pg (25.0-35.0) 02/07/23 06:54 MCHC 35.7 g/dL (31.0-37.0) 02/07/23 06:54 RDW 12.9 % (11.5-15.5) 02/07/23 06:54 Plt Count 251 k/uL (150-450) 02/07/23 06:54 MPV 7.2 02/07/23 06:54 Neutrophils % 67 % 02/07/23 06:54 Lymphocytes % 20 % 02/07/23 06:54 Monocytes % 7 % 02/07/23 06:54 Eosinophils % 3 % 02/07/23 06:54 Basophils % 1 % 02/07/23 06:54 Neutrophils # 1.7 k/uL (1.3-7.7) 02/07/23 06:54 Lymphocytes # 0.5 k/uL (1.0-4.8) L 02/07/23 06:54 Monocytes # 0.2 k/uL (0-1.0) 02/07/23 06:54 Eosinophils # 0.1 k/uL (0-0.7) 02/07/23 06:54 Basophils # 0.0 k/uL (0-0.2) 02/07/23 06:54 Hyperchromasia Slight 02/07/23 06:54 PT 22.2 sec (9.0-12.0) H 02/11/23 10:52 INR 2.3 (<1.2) H 02/11/23 10:52 Sodium 128 mmol/L (137-145) L 02/07/23 06:54 Potassium 4.7 mmol/L (3.5-5.1) 02/07/23 06:54 Chloride 94 mmol/L (98-107) L 02/07/23 06:54 Carbon Dioxide 27 mmol/L (22-30) 02/07/23 06:54 Anion Gap 7 mmol/L 02/07/23 06:54 BUN 13 mg/dL (7-17) 02/07/23 06:54 Creatinine 0.60 mg/dL (0.52-1.04) 02/07/23 06:54 Est GFR (CKD-EPI)AfAm >90 (>60 ml/min/1.73 sqM) 02/07/23 06:54 Est GFR (CKD-EPI)NonAf >90 (>60 ml/min/1.73 sqM) 02/07/23 06:54 Glucose 116 mg/dL (74-99) H 02/07/23 06:54 POC Glucose (mg/dL) 121 mg/dL (70-110) H 02/11/23 07:45 POC Glu Grade Checker ID Tri Guerrero 02/11/23 07:45 Calcium 8.8 mg/dL (8.4-10.2) 02/07/23 06:54 Total Bilirubin 0.3 mg/dL (0.2-1.3) 02/07/23 06:54 AST 31 U/L (14-36) 02/07/23 06:54 ALT 38 U/L (4-34) H 02/07/23 06:54 Alkaline Phosphatase 58 U/L (38-126) 02/07/23 06:54 Total Protein 5.8 g/dL (6.3-8.2) L 02/07/23 06:54 Albumin 3.6 g/dL (3.5-5.0) 02/07/23 06:54 Assessment Schizoaffective disorder, bipolar type Psychogenic polydipsia Plan: -Patient continues to meet criteria for inpatient psychiatric admission for symptom stabilization and safety. A demand will be filed for court as the patient is nonadherent to treatment. -Medications: Prolixin Decanoate 50 mg IM to be administered on 02/08/2023. Recommend that the patient receives a long-acting injectable every 14 days due to the severity of her symptoms. Continue Depakene oral solution 750 mg by mouth twice a day for don. Depakote level waiting - as per lab, it was send out, result should be back today or tomorrow. EKG reviewed. QTc 466 ms. -When necessary Ativan and Prolixin for agitation/aggression. -SW on board for discharge planning. Encouraged the patient to participate in milieu.
[2023-02-11 12:56] LABS: Glucose,Whole Blood 107 mg/dL (70-110)
[2023-02-11 13:31] VITALS: BMI 30.9
[2023-02-11] MEDS ORDERED: ENOXAPARIN 80 MG/0.8 ML SYRINGE SQ ONE (14:45)
[2023-02-11 17:44] LABS: Glucose,Whole Blood 107 mg/dL (70-110)
[2023-02-11] MEDS ORDERED: WARFARIN 7.5 MG TAB PO ONE (18:00)
[2023-02-11 20:25] LABS: Glucose,Whole Blood 187 mg/dL (70-110)
[2023-02-12] MEDS: VALPROIC ACID ORAL SOLN 250 MG/5 ML CUP PO SCH ×3 (02:07→20:10)
[2023-02-12] MEDS: LORazepam 0.5 MG TAB PO PRN (02:07)
[2023-02-12] MEDS: LEVOTHYROXINE 125 MCG TAB PO SCH (06:26)
[2023-02-12 07:51] LABS: Glucose,Whole Blood 118 mg/dL (70-110)
[2023-02-12] MEDS: INSULIN ASPART (NovoLOG) 100 UNIT/ML VIAL SQ SCH ×4 (08:02→20:27)
[2023-02-12] MEDS: ASCORBIC ACID 500 MG TAB PO SCH (08:03)
[2023-02-12] MEDS: clonazePAM 0.5 MG TAB PO SCH ×2 (08:04→20:10)
[2023-02-12] MEDS: ATORVASTATIN 80 MG TAB PO SCH (08:04)
[2023-02-12] MEDS: LORATADINE 10 MG TAB PO SCH (08:04)
[2023-02-12] MEDS: lisinopriL 20 MG TAB PO SCH (08:04)
[2023-02-12] MEDS: CHOLECALCIFEROL 25 MCG (1000 IU) TABLET PO SCH (08:04)
[2023-02-12] MEDS: METOPROLOL SUCCINATE (ER) 50 MG TAB.ER.24H PO SCH (08:05)
--- NOTE | 2023-02-12 11:10 | P.PN ---
Progress Note - Text Progress Note Date: 02/12/23 Interval History: Patient was seen resting in bed and was directable and agreeable to speak with lyric writer in her room. The patient is not reporting any suicidal or homicidal ideation, intention, and/or plan. She is not reporting any auditory or noise or other delusions. The patient has been adherent with her medication and is not endorsing any significant side effects. The patient understands that she has court tomorrow and would likely be discharged after court. She continues to demand increasing her water intake however was informed that we are concerned about her sodium levels. She is otherwise not endorsing any significant medical issues or concerns this provider. Mental Status Exam: General Appearance: Patient appears to be stated age is alert, directable, and cooperative. Behavior: Patient is calmly lying down in bed without any agitated behavior. Speech: Patient's speech is fluent and nonpressured. Mood/Affect: Mood is "I feel good." Affect is euthymic. Suicidality/Homicidality: Patient denies having any suicidal or homicidal ideation intent or plan. Perceptions: Patient denies any visual hallucinations but admits to auditory hallucinations. Though content/process: No delusional thought content is endorsing today. Her thought process appears to be linear and logical in short conversation. Fixated on water. Memory and concentration: AOX3, grossly intact for the purposes of this session Judgment and insight: Mildly improving Vital Signs Temp 97.1 F L 02/12/23 06:40 Pulse 85 02/12/23 08:07 Resp 18 02/12/23 06:40 BP 132/86 02/12/23 08:07 Pulse Ox 100 02/12/23 06:40 FiO2 Intake & Output 02/11/23 02/12/23 02/12/23 18:59 06:59 18:59 Intake Total 320 Balance 320 Weight 81.6 kg Intake: Oral 320 Assessment Schizoaffective disorder, bipolar type Psychogenic polydipsia Plan: -Patient continues to meet criteria for inpatient psychiatric admission for symptom stabilization and safety. A demand will be filed for court as the patie nt is nonadherent to treatment. -Medications: Prolixin Decanoate 50 mg IM to be administered on 02/08/2023. Recommend that the patient receives a long-acting injectable every 14 days due to the severity of her symptoms. Continue Depakene oral solution 750 mg by mouth twice a day for don. Depakote level waiting - as per lab, it was send out, result should be back today. EKG reviewed. QTc 466 ms. -When necessary Ativan and Prolixin for agitation/aggression. -SW on board for discharge planning. Encouraged the patient to participate in milieu.
[2023-02-12 12:43] LABS: INR 2.3 (<1.2); Prothrombin Time 22.5 sec (9.0-12.0)
[2023-02-12 12:49] LABS: Glucose,Whole Blood 132 mg/dL (70-110)
[2023-02-12] MEDS: ENOXAPARIN 80 MG/0.8 ML SYRINGE SQ SCH ×2 (13:47→20:27)
[2023-02-12 17:54] LABS: Glucose,Whole Blood 97 mg/dL (70-110)
[2023-02-12] MEDS ORDERED: WARFARIN 7.5 MG TAB PO ONE (18:00)
[2023-02-12 20:04] LABS: Glucose,Whole Blood 159 mg/dL (70-110)
[2023-02-13] MEDS: LEVOTHYROXINE 125 MCG TAB PO SCH (06:20)
[2023-02-13 07:48] LABS: Glucose,Whole Blood 111 mg/dL (70-110)
[2023-02-13] MEDS: INSULIN ASPART (NovoLOG) 100 UNIT/ML VIAL SQ SCH ×4 (08:26→20:47)
[2023-02-13] MEDS: LORATADINE 10 MG TAB PO SCH (08:28)
[2023-02-13] MEDS: METOPROLOL SUCCINATE (ER) 50 MG TAB.ER.24H PO SCH (08:28)
[2023-02-13] MEDS: ATORVASTATIN 80 MG TAB PO SCH (08:28)
[2023-02-13] MEDS: ASCORBIC ACID 500 MG TAB PO SCH (08:28)
[2023-02-13] MEDS: lisinopriL 20 MG TAB PO SCH (08:28)
[2023-02-13] MEDS: clonazePAM 0.5 MG TAB PO SCH ×2 (08:28→20:50)
[2023-02-13] MEDS: CHOLECALCIFEROL 25 MCG (1000 IU) TABLET PO SCH (08:28)
[2023-02-13] MEDS: ENOXAPARIN 80 MG/0.8 ML SYRINGE SQ SCH ×2 (08:30→20:51)
[2023-02-13] MEDS: VALPROIC ACID ORAL SOLN 250 MG/5 ML CUP PO SCH ×2 (08:33→20:50)
[2023-02-13] MEDS ORDERED: flUPHENAZine 2.5 MG/ML (MDV) 10 ML VIAL IM PRN (09:36)
[2023-02-13 09:53] LABS: INR 1.9 (<1.2); Prothrombin Time 18.7 sec (9.0-12.0)
--- NOTE | 2023-02-13 11:18 | P.PN ---
Progress Note - Text Progress Note Date: 02/13/23 Interval History: Patient was seen resting in bed and was directable and agreeable to speak with adjusto writer operator in her room. The patient signed a waiver and stipulated court. She was anticipating discharge however she has been noted by staff and this provider to respond to internal stimuli. She is overheard speaking outloud to herself in her room and responding to auditory hallucinations. She states to this provider she wants to be discharged in her hospital gown and not any clothes given to her because these clothes are "worn by the . They stink because people were wearing them." She states she knows this to be true because she overheard staff talking about this. She was informed that this is not the case. The patient becomes very upset and tearful when informed discharge will be held. Mental Status Exam: General Appearance: Patient appears to be stated age is alert, directable, and cooperative. Behavior: Patient is calmly lying down in bed without any agitated behavior. Becomes very tearful. Speech: Patient's speech is fluent and nonpressured. Mood/Affect: Mood is "Please let me be discharged today." Affect is tearful. Suicidality/Homicidality: Patient denies having any suicidal or homicidal ideation intent or plan. Perceptions: Patient denies any visual hallucinations but admits to auditory hallucinations. However is noted to respond to auditory hallucinations. Though content/process: Patient endorses bizarre delusions including clothes being worn by people. Memory and concentration: AOX3, grossly intact for the purposes of this session Judgment and insight: Poor Vital Signs Temp 97.3 F L 02/13/23 06:40 Pulse 76 02/13/23 06:40 Resp 16 02/13/23 06:40 BP 189/83 02/13/23 06:40 Pulse Ox 98 02/13/23 06:40 FiO2 Intake & Output 02/12/23 02/13/23 02/13/23 18:59 06:59 18:59 Intake Total 120 Balance 120 Intake: Oral 120 Laboratory Results WBC 2.6 k/uL (3.8-10.6) L 02/07/23 06:54 RBC 3.72 m/uL (3.80-5.40) L 02/07/23 06:54 Hgb 11.1 gm/dL (11.4-16.0) L 02/07/23 06:54 Hct 31.1 % (34.0-46.0) L 02/07/23 06:54 MCV 83.4 fL (80.0-100.0) 02/07/23 06:54 MCH 29.8 pg (25.0-35.0) 02/07/23 06:54 MCHC 35.7 g/dL (31.0-37.0) 02/07/23 06:54 RDW 12.9 % (11.5-15.5) 02/07/23 06:54 Plt Count 251 k/uL (150-450) 02/07/23 06:54 MPV 7.2 02/07/23 06:54 Neutrophils % 67 % 02/07/23 06:54 Lymphocytes % 20 % 02/07/23 06:54 Monocytes % 7 % 02/07/23 06:54 Eosinophils % 3 % 02/07/23 06:54 Basophils % 1 % 02/07/23 06:54 Neutrophils # 1.7 k/uL (1.3-7.7) 02/07/23 06:54 Lymphocytes # 0.5 k/uL (1.0-4.8) L 02/07/23 06:54 Monocytes # 0.2 k/uL (0-1.0) 02/07/23 06:54 Eosinophils # 0.1 k/uL (0-0.7) 02/07/23 06:54 Basophils # 0.0 k/uL (0-0.2) 02/07/23 06:54 Hyperchromasia Slight 02/07/23 06:54 PT 18.7 sec (9.0-12.0) H 02/13/23 09:03 INR 1.9 (<1.2) H 02/13/23 09:03 Sodium 128 mmol/L (137-145) L 02/07/23 06:54 Potassium 4.7 mmol/L (3.5-5.1) 02/07/23 06:54 Chloride 94 mmol/L (98-107) L 02/07/23 06:54 Carbon Dioxide 27 mmol/L (22-30) 02/07/23 06:54 Anion Gap 7 mmol/L 02/07/23 06:54 BUN 13 mg/dL (7-17) 02/07/23 06:54 Creatinine 0.60 mg/dL (0.52-1.04) 02/07/23 06:54 Est GFR (CKD-EPI)AfAm >90 (>60 ml/min/1.73 sqM) 02/07/23 06:54 Est GFR (CKD-EPI)NonAf >90 (>60 ml/min/1.73 sqM) 02/07/23 06:54 Glucose 116 mg/dL (74-99) H 02/07/23 06:54 POC Glucose (mg/dL) 111 mg/dL (70-110) H 02/13/23 07:47 POC Glu Manager Wellness ID [place] 02/13/23 07:47 Calcium 8.8 mg/dL (8.4-10.2) 02/07/23 06:54 Total Bilirubin 0.3 mg/dL (0.2-1.3) 02/07/23 06:54 AST 31 U/L (14-36) 02/07/23 06:54 ALT 38 U/L (4-34) H 02/07/23 06:54 Alkaline Phosphatase 58 U/L (38-126) 02/07/23 06:54 Total Protein 5.8 g/dL (6.3-8.2) L 02/07/23 06:54 Albumin 3.6 g/dL (3.5-5.0) 02/07/23 06:54 Free Valproic Acid 18.9 mg/L (4.8-17.3) H 02/07/23 06:54 Assessment Schizoaffective disorder, bipolar type Psychogenic polydipsia Plan: -Patient continues to meet criteria for inpatient psychiatric admission for symptom stabilization and safety. A demand will be filed for court as the patient is nonadherent to treatment. -Medications: Prolixin Decanoate 50 mg IM to be administered on 02/08/2023. Recommend that the patient receives a long-acting injectable every 14 days due to the severity of her symptoms. Continue Depakene oral solution 750 mg by mouth twice a day for don. Found to be supratherapeutic however patient appears to be tolerating medication. We will continue at dose for now and reorder depakote level, ammonia, CMP. Restart Prolixin 2 mg twice daily to address psychosis. EKG reviewed. QTc 466 ms. -When necessary Ativan and Prolixin for agitation/aggression. -SW on board for discharge planning. Encouraged the patient to participate in milieu.
[2023-02-13 12:52] LABS: Glucose,Whole Blood 116 mg/dL (70-110)
[2023-02-13 13:02] LABS: ALT 37 U/L (4-34); AST 32 U/L (14-36); African American GFR (CKD) >90 (>60 ml/min/1.73 sqM); Albumin 3.2 g/dL (3.5-5.0); Alkaline Phosphatase 56 U/L (38-126); Anion Gap 6 mmol/L; Blood Urea Nitrogen 11 mg/dL (7-17); Calcium 8.1 mg/dL (8.4-10.2); Carbon Dioxide 26 mmol/L (22-30); Chloride 94 mmol/L (98-107); Glucose 152 mg/dL (74-99); Non-African American GFR(CKD) >90 (>60 ml/min/1.73 sqM); Potassium 4.4 mmol/L (3.5-5.1); Sodium 126 mmol/L (137-145); Total Bilirubin 0.3 mg/dL (0.2-1.3); Total Protein 5.2 g/dL (6.3-8.2)
[2023-02-13 13:07] LABS: Valproic Acid (Depakene) 90.2 ug/mL
[2023-02-13 17:44] LABS: Glucose,Whole Blood 120 mg/dL (70-110)
[2023-02-13] MEDS ORDERED: WARFARIN 7.5 MG TAB PO ONE (18:00)
[2023-02-13 20:21] LABS: Glucose,Whole Blood 106 mg/dL (70-110)
[2023-02-14] MEDS: LEVOTHYROXINE 125 MCG TAB PO SCH (06:19)
[2023-02-14 08:02] LABS: Glucose,Whole Blood 125 mg/dL (70-110)
[2023-02-14 08:10] LABS: INR 1.4 (<1.2); Prothrombin Time 14.3 sec (9.0-12.0)
[2023-02-14] MEDS: INSULIN ASPART (NovoLOG) 100 UNIT/ML VIAL SQ SCH ×4 (08:10→20:10)
[2023-02-14] MEDS: VALPROIC ACID ORAL SOLN 250 MG/5 ML CUP PO SCH ×2 (09:03→20:08)
[2023-02-14] MEDS: lisinopriL 20 MG TAB PO SCH (09:04)
[2023-02-14] MEDS: ATORVASTATIN 80 MG TAB PO SCH (09:04)
[2023-02-14] MEDS: LORATADINE 10 MG TAB PO SCH (09:04)
[2023-02-14] MEDS: clonazePAM 0.5 MG TAB PO SCH ×2 (09:04→20:10)
[2023-02-14] MEDS: CHOLECALCIFEROL 25 MCG (1000 IU) TABLET PO SCH (09:04)
[2023-02-14] MEDS: ASCORBIC ACID 500 MG TAB PO SCH (09:04)
[2023-02-14] MEDS: ENOXAPARIN 80 MG/0.8 ML SYRINGE SQ SCH ×2 (09:05→20:08)
[2023-02-14] MEDS: METOPROLOL SUCCINATE (ER) 50 MG TAB.ER.24H PO SCH (09:05)
--- NOTE | 2023-02-14 11:30 | P.PN ---
Progress Note - Text Progress Note Date: 02/14/23 Interval History: Patient was seen resting in bed and was directable and agreeable to speak with telegraphic typewriter repairer in her room. The patient reported to staff that this provider was going to come into the hospital "incognito." She initially denied these claims to this provider however as the interview progressed she reported to this provider that "you went through a splitting machine and there are 2 of you now." She was asked what this meant, and the patient immediately responded, "nothing, forget about it." She continues to express a strong desire for discharge. She is reporting no suicidal or homicidal ideation, intention, and/or plan. She is not endorsing any auditory or visual hallucinations however has been noted by staff to respond to internal stimuli and engage in self speech. She is also reported to not sleep well last night. Mental Status Exam: General Appearance: Patient appears to be stated age is alert, directable, and cooperative. Behavior: Patient is calmly lying down in bed without any agitated behavior Speech: Patient's speech is fluent and nonpressured. Mood/Affect: Mood is "I am leaving today." Affect is irritable. Suicidality/Homicidality: Patient denies having any suicidal or homicidal ideation intent or plan. Perceptions: Patient denies any visual hallucinations but admits to auditory hallucinations. However is noted to respond to auditory hallucinations. Though content/process: Patient endorses bizarre delusions including a capgras delusion about this provider. Memory and concentration: AOX3, grossly intact for the purposes of this session Judgment and insight: Poor Laboratory Results - Last 24 Hours 02/13/23 02/13/23 02/13/23 11:57 11:57 12:50 PT INR Sodium 126 L Potassium 4.4 Chloride 94 L Carbon Dioxide 26 Anion Gap 6 BUN 11 Creatinine 0.63 Est GFR (CKD-EPI)AfAm >90 Est GFR (CKD-EPI)NonAf >90 Glucose 152 H POC Glucose (mg/dL) 116 H POC Glu Negative Turner ID [place] Calcium 8.1 L Total Bilirubin 0.3 AST 32 ALT 37 H Alkaline Phosphatase 56 Ammonia 25 Total Protein 5.2 L Albumin 3.2 L Valproic Acid 90.2 02/13/23 02/13/23 02/14/23 17:42 20:20 07:23 PT 14.3 H INR 1.4 H Sodium Potassium Chloride Carbon Dioxide Anion Gap BUN Creatinine Est GFR (CKD-EPI)AfAm Est GFR (CKD-EPI)NonAf Glucose POC Glucose (mg/dL) 120 H 106 POC Glu Negative Turner ID Jermaine Leija Toni Calcium Total Bilirubin AST ALT Alkaline Phosphatase Ammonia Total Protein Albumin Valproic Acid 02/14/23 08:00 PT INR Sodium Potassium Chloride Carbon Dioxide Anion Gap BUN Creatinine Est GFR (CKD-EPI)AfAm Est GFR (CKD-EPI)NonAf Glucose POC Glucose (mg/dL) 125 H POC Glu Negative Turner ID [place] Calcium Total Bilirubin AST ALT Alkaline Phosphatase Ammonia Total Protein Albumin Valproic Acid Assessment Schizoaffective disorder, bipolar type Psychogenic polydipsia Hyponatremia Plan: -Patient continues to meet criteria for inpatient psychiatric admission for symptom stabilization and safety. Patient waived and stipulated court. -Medications: Prolixin Decanoate 50 mg IM to be administered on 02/08/2023. Recommend that the patient receives a long-acting injectable every 14 days due to the severity of her symptoms. Continue Prolixin 2 mg twice daily @0900,1600 to address psychosis. Start Seroquel 50 mg at bedtime for psychosis. Continue Depakene oral solution 750 mg by mouth twice a day for don EKG reviewed. QTc 466 ms. -When necessary Ativan and Prolixin for agitation/aggression. -SW on board for discharge planning. Encouraged the patient to participate in milieu.
[2023-02-14 12:50] LABS: Glucose,Whole Blood 106 mg/dL (70-110)
[2023-02-14 17:58] LABS: Glucose,Whole Blood 116 mg/dL (70-110)
[2023-02-14] MEDS ORDERED: WARFARIN 7.5 MG TAB PO ONE (18:00)
[2023-02-14 20:08] LABS: Glucose,Whole Blood 120 mg/dL (70-110)
[2023-02-14] MEDS: QUEtiapine 50 MG TAB PO SCH ×2 (20:08→20:09)
[2023-02-15] MEDS: LEVOTHYROXINE 125 MCG TAB PO SCH ×2 (05:39→08:12)
[2023-02-15 07:57] LABS: Glucose,Whole Blood 121 mg/dL (70-110)
[2023-02-15] MEDS: VALPROIC ACID ORAL SOLN 250 MG/5 ML CUP PO SCH ×2 (08:09→21:25)
[2023-02-15] MEDS: METOPROLOL SUCCINATE (ER) 50 MG TAB.ER.24H PO SCH (08:11)
[2023-02-15] MEDS: CHOLECALCIFEROL 25 MCG (1000 IU) TABLET PO SCH (08:11)
[2023-02-15] MEDS: LORATADINE 10 MG TAB PO SCH (08:11)
[2023-02-15] MEDS: lisinopriL 20 MG TAB PO SCH (08:11)
[2023-02-15] MEDS: ATORVASTATIN 80 MG TAB PO SCH (08:11)
[2023-02-15] MEDS: clonazePAM 0.5 MG TAB PO SCH ×2 (08:11→21:24)
[2023-02-15] MEDS: ASCORBIC ACID 500 MG TAB PO SCH (08:11)
[2023-02-15] MEDS: INSULIN ASPART (NovoLOG) 100 UNIT/ML VIAL SQ SCH ×4 (08:13→21:23)
[2023-02-15 08:23] LABS: INR 1.8 (<1.2); Prothrombin Time 17.9 sec (9.0-12.0)
[2023-02-15] MEDS: ENOXAPARIN 80 MG/0.8 ML SYRINGE SQ SCH ×2 (09:52→21:26)
--- NOTE | 2023-02-15 11:20 | P.PN ---
Progress Note - Text Progress Note Date: 02/15/23 Interval History: Patient was seen resting in bed and was directable and agreeable to speak with process description writer in her room. The patient is currently not reporting any suicidal or homicidal ideation, intention, and/or plan. She is not reporting any auditory or visual hallucinations. She reports no paranoia or delusions. The patient has been in adherent with her medication endorsing any significant side effects at this time. The patient continues to request discharge however was informed that today is the first day that she has not presented with any overt psychotic symptoms to this provider. She is in agreement for further observation over the weekend. She reports no issues regarding her sleep or her appetite. Mental Status Exam: General Appearance: Patient appears to be stated age is alert, directable, and cooperative. Behavior: Patient is calmly lying down in bed without any agitated behavior Speech: Patient's speech is fluent and nonpressured. Mood/Affect: Mood is "I feel good." Affect is euthymic and polite. Suicidality/Homicidality: Patient denies having any suicidal or homicidal ideation intent or plan. Perceptions: Patient is not endorsing any auditory or visual hallucinations Though content/process: Patient is not endorsing any delusional thought content or thought process. Memory and concentration: AOX3, grossly intact for the purposes of this session Judgment and insight: Improving Vital Signs Temp 97.1 F L 02/14/23 06:22 Pulse 88 02/14/23 06:22 Resp 16 02/14/23 06:22 BP 172/82 02/14/23 06:22 Pulse Ox 98 02/14/23 06:22 FiO2 Laboratory Results - Last 24 Hours 02/14/23 02/14/23 02/14/23 12:48 17:56 20:07 PT INR POC Glucose (mg/dL) 106 116 H 120 H POC Glu Molder Setter ID Jermaine Leija Nicole [place], Linda 02/15/23 02/15/23 07:38 07:55 PT 17.9 H INR 1.8 H POC Glucose (mg/dL) 121 H POC Glu Molder Setter ID Marii Horn Assessment Schizoaffective disorder, bipolar type Psychogenic polydipsia Hyponatremia Plan: -Patient continues to meet criteria for inpatient psychiatric admission for symptom stabilization and safety. Patient waived and stipulated court. -Medications: Prolixin Decanoate 50 mg IM to be administered on 02/08/2023. Recommend that the patient receives a long-acting injectable every 14 days due to the severity of her symptoms. Continue Prolixin 2 mg twice daily @0900,1600 to address psychosis. Continue Seroquel 50 mg at bedtime for psychosis. Continue Depakene oral solution 750 mg by mouth twice a day for don EKG reviewed. QTc 466 ms. -When necessary Ativan and Prolixin for agitation/aggression. -SW on board for discharge planning. Encouraged the patient to participate in milieu.
[2023-02-15 12:37] LABS: Glucose,Whole Blood 135 mg/dL (70-110)
[2023-02-15] MEDS ORDERED: WARFARIN 7.5 MG TAB PO ONE (18:00)
[2023-02-15 18:03] LABS: Glucose,Whole Blood 110 mg/dL (70-110)
[2023-02-15 20:51] LABS: Glucose,Whole Blood 114 mg/dL (70-110)
[2023-02-16 07:57] LABS: Glucose,Whole Blood 130 mg/dL (70-110)
[2023-02-16] MEDS: INSULIN ASPART (NovoLOG) 100 UNIT/ML VIAL SQ SCH ×4 (08:35→20:03)
[2023-02-16] MEDS: LORATADINE 10 MG TAB PO SCH (08:36)
[2023-02-16] MEDS: ASCORBIC ACID 500 MG TAB PO SCH (08:36)
[2023-02-16] MEDS: CHOLECALCIFEROL 25 MCG (1000 IU) TABLET PO SCH (08:36)
[2023-02-16] MEDS: METOPROLOL SUCCINATE (ER) 50 MG TAB.ER.24H PO SCH (08:36)
[2023-02-16] MEDS: clonazePAM 0.5 MG TAB PO SCH ×2 (08:36→20:02)
[2023-02-16] MEDS: lisinopriL 20 MG TAB PO SCH (08:36)
[2023-02-16] MEDS: ATORVASTATIN 80 MG TAB PO SCH (08:36)
[2023-02-16] MEDS: ENOXAPARIN 80 MG/0.8 ML SYRINGE SQ SCH ×2 (08:37→20:03)
[2023-02-16] MEDS: VALPROIC ACID ORAL SOLN 250 MG/5 ML CUP PO SCH ×2 (08:37→20:02)
--- NOTE | 2023-02-16 10:48 | P.PN ---
Progress Note - Text Progress Note Date: 02/16/23 Subjective/subjective data: Patient reports that she's been here for about 3-4 weeks She says that the police just threw her in here for no apparent reason She denies any alcohol or substance use but states that she used to drink in the past She said that she only had some problems with low sodium a month ago She says that she made around 4 twice and tried to take off from the hospital because she did not feel that she needed to be here and since then has been thrown in here for no apparent reason The patient is currently not reporting any suicidal or homicidal ideation, intention, and/or plan. She is not reporting any auditory or visual hallucinations. She reports no paranoia or delusions. The patient has been in adherent with her medication endorsing any significant side effects at this time. The patient continues to request discharge Mental Status Exam: General Appearance: Patient appears to be stated age is alert, directable, and cooperative. Behavior: Patient is sitting up on the side of the bed without any agitated behavior Speech: Patient's speech is fluent and nonpressured. Mood/Affect: Mood is "I feel good." Affect is euthymic and polite. Suicidality/Homicidality: Patient denies having any suicidal or homicidal ideation intent or plan. Perceptions: Patient is not endorsing any auditory or visual hallucinations Though content/process: Patient is not endorsing any delusional thought content or thought process. Memory and concentration: AOX3, grossly intact for the purposes of this session Judgment and insight: Improving Assessment Schizoaffective disorder, bipolar type Psychogenic polydipsia Hyponatremia Plan: -Patient continues to meet criteria for inpatient psychiatric admission for symptom stabilization and safety. Patient waived and stipulated court. -Medications: Prolixin Decanoate 50 mg IM to be administered on 02/08/2023. Recommend that the patient receives a long-acting injectable every 14 days due to the severity of her symptoms. Continue Prolixin 2 mg twice daily @0900,1600 to address psychosis. Continue Seroquel 50 mg at bedtime for psychosis. Continue Depakene oral solution 750 mg by mouth twice a day for don EKG reviewed. QTc 466 ms. -When necessary Ativan and Prolixin for agitation/aggression. -SW on board for discharge planning. Encouraged the patient to participate in zoraida Nava M.D.
[2023-02-16 11:31] LABS: INR 2.6 (<1.2); Prothrombin Time 25.5 sec (9.0-12.0)
[2023-02-16 13:04] LABS: Glucose,Whole Blood 106 mg/dL (70-110)
[2023-02-16 17:26] LABS: Glucose,Whole Blood 108 mg/dL (70-110)
[2023-02-16] MEDS ORDERED: WARFARIN 10 MG TAB PO ONE (18:00)
[2023-02-16 19:50] LABS: Glucose,Whole Blood 101 mg/dL (70-110)
[2023-02-16] MEDS: QUEtiapine 50 MG TAB PO SCH (20:02)
[2023-02-17] MEDS: LEVOTHYROXINE 125 MCG TAB PO SCH (06:11)
[2023-02-17 07:30] LABS: INR 2.5 (<1.2); Prothrombin Time 24.1 sec (9.0-12.0)
[2023-02-17 07:40] LABS: Glucose,Whole Blood 144 mg/dL (70-110)
[2023-02-17] MEDS: INSULIN ASPART (NovoLOG) 100 UNIT/ML VIAL SQ SCH ×4 (07:45→21:26)
[2023-02-17] MEDS: ASCORBIC ACID 500 MG TAB PO SCH (08:35)
[2023-02-17] MEDS: CHOLECALCIFEROL 25 MCG (1000 IU) TABLET PO SCH (08:35)
[2023-02-17] MEDS: clonazePAM 0.5 MG TAB PO SCH ×2 (08:35→21:24)
[2023-02-17] MEDS: LORATADINE 10 MG TAB PO SCH (08:35)
[2023-02-17] MEDS: lisinopriL 20 MG TAB PO SCH (08:36)
[2023-02-17] MEDS: VALPROIC ACID ORAL SOLN 250 MG/5 ML CUP PO SCH ×2 (08:36→21:24)
[2023-02-17] MEDS: METOPROLOL SUCCINATE (ER) 50 MG TAB.ER.24H PO SCH (08:36)
[2023-02-17] MEDS: ATORVASTATIN 80 MG TAB PO SCH (08:36)
--- NOTE | 2023-02-17 09:24 | P.PN ---
Progress Note - Text Progress Note Date: 02/17/23 Subjective/objective data: Patient states that she is doing well Physical that she is expecting to be discharged on She says that she is fine and that she'll find no matter what She denies that she is suicidal or homicidal She states that she expects to talk to her attending psychiatrist for her future plans She denies any side effects from her medications Mental Status Exam: General Appearance: Patient appears to be stated age is alert, directable, and cooperative. Behavior: Patient is sitting up on the side of the bed without any agitated behavior Speech: Patient's speech is fluent and nonpressured. Mood/Affect: Mood is "I feel good." Affect is euthymic and polite. Suicidality/Homicidality: Patient denies having any suicidal or homicidal ideation intent or plan. Perceptions: Patient is not endorsing any auditory or visual hallucinations Though content/process: Patient is not endorsing any delusional thought content or thought process. Memory and concentration: AOX3, grossly intact for the purposes of this session Judgment and insight: Improving Assessment Schizoaffective disorder, bipolar type Psychogenic polydipsia Hyponatremia Plan: -Patient continues to meet criteria for inpatient psychiatric admission for symptom stabilization and safety. Patient waived and stipulated court. -Medications: Prolixin Decanoate 50 mg IM to be administered on 02/08/2023. Recommend that the patient receives a long-acting injectable every 14 days due to the severity of her symptoms. Continue Prolixin 2 mg twice daily @0900,1600 to address psychosis. Continue Seroquel 50 mg at bedtime for psychosis. Continue Depakene oral solution 750 mg by mouth twice a day for don EKG reviewed. QTc 466 ms. -When necessary Ativan and Prolixin for agitation/aggression. -SW on board for discharge planning. Encouraged the patient to participate in zoraida Nava M.D.
[2023-02-17 12:51] LABS: Glucose,Whole Blood 92 mg/dL (70-110)
[2023-02-17 17:55] LABS: Glucose,Whole Blood 90 mg/dL (70-110)
[2023-02-17] MEDS ORDERED: WARFARIN 7.5 MG TAB PO ONE (18:00)
[2023-02-17] MEDS: QUEtiapine 50 MG TAB PO SCH (21:24)
[2023-02-18] MEDS: LEVOTHYROXINE 125 MCG TAB PO SCH ×2 (05:42→05:46)
[2023-02-18 07:49] LABS: Glucose,Whole Blood 112 mg/dL (70-110)
[2023-02-18] MEDS: VALPROIC ACID ORAL SOLN 250 MG/5 ML CUP PO SCH ×2 (08:30→22:43)
[2023-02-18] MEDS: CHOLECALCIFEROL 25 MCG (1000 IU) TABLET PO SCH (08:31)
[2023-02-18] MEDS: clonazePAM 0.5 MG TAB PO SCH ×2 (08:31→22:42)
[2023-02-18] MEDS: ASCORBIC ACID 500 MG TAB PO SCH (08:31)
[2023-02-18] MEDS: lisinopriL 20 MG TAB PO SCH (08:31)
[2023-02-18] MEDS: LORATADINE 10 MG TAB PO SCH (08:31)
[2023-02-18] MEDS: METOPROLOL SUCCINATE (ER) 50 MG TAB.ER.24H PO SCH (08:32)
[2023-02-18] MEDS: ATORVASTATIN 80 MG TAB PO SCH (08:32)
[2023-02-18] MEDS: INSULIN ASPART (NovoLOG) 100 UNIT/ML VIAL SQ SCH ×3 (08:33→21:00)
[2023-02-18 13:00] LABS: INR 3.2 (<1.2); Prothrombin Time 31.6 sec (9.0-12.0)
--- NOTE | 2023-02-18 13:04 | P.PN ---
Progress Note - Text Progress Note Date: 02/18/23 Interval History: Patient was seen resting in bed and was directable and agreeable to speak with typewriter assembler in the office. The patient continues to have intermittent episodes of psychosis and paranoia. She reported to the treatment team at bedtime that she was concerned the "roof was falling in." She expressed this concern to this provider. She was able to be calmed down and was in agreement that this may be a symptom of her schizoaffective disorder. She has been adherent with her medications and is not endorsing any side effects. She reports no suicidal or homicidal ideation, intention, and/or plan. She reports no auditory or visual hallucinations. Aside from concern of the roof falling in, she is not endorsing any paranoia or other delusions. She reports no medical issues or concerns to this provider. She continues to occasionally be religiously preoccupied. She is noted by staff to sleep. Mental Status Exam: General Appearance: Patient appears to be stated age is alert, directable, and cooperative. Behavior: Patient is calmly lying down in bed without any agitated behavior Speech: Patient's speech is fluent and nonpressured. Mood/Affect: Mood is "I feel good and I'm ready to be discharged." Affect is euthymic and polite. Suicidality/Homicidality: Patient denies having any suicidal or homicidal ideation intent or plan. Perceptions: Patient is not endorsing any auditory or visual hallucinations Though content/process: Patient is not endorsing any delusional thought content or thought process. Memory and concentration: AOX3, grossly intact for the purposes of this session Judgment and insight: Improving Vital Signs Temp 97.7 F 02/18/23 03:07 Pulse 87 02/18/23 03:07 Resp 16 02/18/23 03:07 BP 143/81 02/18/23 03:07 Pulse Ox 98 02/18/23 03:07 FiO2 Intake & Output 02/17/23 02/18/23 02/18/23 18:59 06:59 18:59 Weight 80.15 kg Laboratory Results - Last 24 Hours 02/17/23 02/18/23 02/18/23 17:54 07:45 11:43 PT 31.6 H INR 3.2 H POC Glucose (mg/dL) 90 112 H POC Glu [employer] Tender Jennie Briseno Desiree Assessment Schizoaffective disorder, bipolar type Psychogenic polydipsia Hyponatremia Plan: -Patient continues to meet criteria for inpatient psychiatric admission for symptom stabilization and safety. Patient waived and stipulated court. -Medications: Prolixin Decanoate 50 mg IM to be administered on 02/08/2023. Recommend that the patient receives a long-acting injectable every 14 days due to the severity of her symptoms. Continue Prolixin 2 mg twice daily @0900,1600 to address psycho sis. Increase Seroquel to 100 mg at bedtime for psychosis. Continue Depakene oral solution 750 mg by mouth twice a day for don EKG reviewed. QTc 466 ms. -When necessary Ativan and Prolixin for agitation/aggression. -SW on board for discharge planning. Encouraged the patient to participate in milieu.
[2023-02-18 13:13] LABS: Glucose,Whole Blood 91 mg/dL (70-110)
[2023-02-18] MEDS: LORazepam 0.5 MG TAB PO PRN (16:27)
[2023-02-18] MEDS ORDERED: WARFARIN 10 MG TAB PO ONE (18:00)
[2023-02-18 18:13] LABS: Glucose,Whole Blood 116 mg/dL (70-110)
[2023-02-18 20:00] LABS: Glucose,Whole Blood 184 mg/dL (70-110)
[2023-02-18] MEDS: QUEtiapine 100 MG TAB PO SCH (22:43)
[2023-02-19] MEDS: INSULIN ASPART (NovoLOG) 100 UNIT/ML VIAL SQ SCH ×5 (00:10→20:41)
[2023-02-19 07:38] LABS: Glucose,Whole Blood 110 mg/dL (70-110)
[2023-02-19] MEDS: LEVOTHYROXINE 125 MCG TAB PO SCH (07:41)
[2023-02-19] MEDS: METOPROLOL SUCCINATE (ER) 50 MG TAB.ER.24H PO SCH (07:41)
[2023-02-19] MEDS: ATORVASTATIN 80 MG TAB PO SCH (07:41)
[2023-02-19] MEDS: lisinopriL 20 MG TAB PO SCH (07:43)
[2023-02-19] MEDS: clonazePAM 0.5 MG TAB PO SCH ×2 (07:43→20:39)
[2023-02-19] MEDS: CHOLECALCIFEROL 25 MCG (1000 IU) TABLET PO SCH (07:43)
[2023-02-19] MEDS: ASCORBIC ACID 500 MG TAB PO SCH (07:44)
[2023-02-19] MEDS: LORATADINE 10 MG TAB PO SCH (07:44)
[2023-02-19] MEDS: VALPROIC ACID ORAL SOLN 250 MG/5 ML CUP PO SCH ×2 (07:48→20:39)
[2023-02-19 08:40] LABS: INR 3.9 (<1.2); Prothrombin Time 38.4 sec (9.0-12.0)
--- NOTE | 2023-02-19 13:12 | P.DS ---
Providers Date of admission: 01/30/23 21:25 Expected date of discharge: 02/19/23 Attending physician: Gerardo Kirkpatrick MD Consults: 01/30/23 19:43 Consult Physician Routine Consulting Provider: [facility] Consult Reason/Comments: H&P Do you want consulting provider notified?: Yes Primary care physician: Victorino Esparza MD - Discharge Diagnosis(es) (1) Psychogenic polydipsia Current Visit: Yes Status: Acute Priority: High (2) Schizoaffective disorder, bipolar type Current Visit: Yes Status: Acute Priority: High Hospital Course: Admission HPI: This patient is a , unemployed, 62-year-old female with significant history of schizoaffective disorder, bipolar type who presents to the hospital on 01/28/2023 for abnormal behavior and psychiatric evaluation. Patient presented to the hospital on 01/28/2023 by EMS for psychiatric evaluation. Reportedly, the patient attempted to knock on a neighbor's door who then contacted the Senior Management Consultant's Department. She reports that the Senior Management Consultant brought her to the hospital for psychiatric evaluation. The patient was most recently admitted onto our psychiatric unit on 01/16/2023 and was subsequently transferred to the medical floor on 01/21/2023 due to concerns for uncontrolled PT/INR on Coumadin and hyponatremia. A psychiatric consult was placed and the patient was evaluated on 01/29/2023 however appeared stable at the time. During that evaluation, the patient's Tegretol was held due to concerns for hyponatremia and she was continued on Geodon. However, the patient regressed back into a manic episode and psychiatry was reconsult to evaluate the patient on 01/30/2023. This time however, the patient was endorsing significant grandiose delusions including the belief that she was . Due to this belief, the patient began refusing necessary medical medications including her Coumadin. The patient was subsequently petitioned and certified and admitted onto the psychiatric unit. Upon evaluation on the psychiatric unit, the patient appeared to be grossly manic. She was often singing to herself and saying that God was speaking to her. She appeared to be responding to internal stimuli. She was also refusing her medications intermittently stating that she would not take any medications if he would harm her baby. Patient has a history of schizoaffective disorder, bipolar type. The patient has trialed numerous medications including Seroquel, Risperdal, Depakote, Thorazine, Prolixin decanoate, Zyprexa, Haldol, and Effexor. She was last discharged from our psychiatric unit last month on a regimen of Geodon and Tegretol on 01/21/2023. She has had numerous psychiatric hospitalizations. Patient denies any psychiatric outpatient follow-up. Patient denies any history of suicide attempts in the past. Hospital course: Upon admission to the unit patient was initially irritable, grandiose, religiously preoccupied, and had very poor insight and judgment. A demand for mental health court order was filed due to the patient's severe mental illness and her history of nonadherence with treatment. She was initially started on a regimen of Depakene liquid and her Geodon was discontinued with a transition to Prolixin in order to place her on a long-acting injectable Prolixin Decanoate due to her history of nonadherence with treatment. Over the course of the hospitalization, the patient had intermittent episodes of irritability and psychosis. Her Prolixin was gradually titrated and the patient initially displayed a positive response with this medication and addressing her target symptoms of psychosis and don. She was transitioned to Prolixin Decanoate 50 mg IM which was administered on 02/08/2023. However, the patient continued to have intermittent episodes of psychosis and paranoia. There would be times where she would not sleep at all. Furthermore, the patient displayed significant concerns for psychogenic polydipsia and she was often drinking a significant water leading to hyponatremia and she was placed on fluid restrictions. Seroquel was added to her regimen in order to address her treatment resistant psychotic and manic symptoms. Her Depakote level was found to be within the therapeutic range and was at the upper limit of normal. On this regimen of Prolixin Decanoate, oral Prolixin, Seroquel, and Depakote, the patient began displaying stability in mood and thought. Appropriate safety planning including setting the patient up with [facility] was performed prior to discharge. The patient was also monitored by the medical team for a history and physical examination. She was managed with coumadin for anticoagulation. On the day of discharge, the patient is not reporting any suicidal or homicidal ideation, intention, and/or plan. She is not reporting any auditory or visual hallucinations. She is denying any paranoia or other delusions. Patient has been adherent with her medications and is not endorsing any significant side effects. She denies any chest pain, shows breath, or palpitations. She reports no muscle tightness or abnormal muscle movements. She denies any constipation or diarrhea. She was counseled at length on the importance of medication adherence and appropriate outpatient follow-up. She was also counseled on abstaining from all substances including alcohol, tobacco, marijuana, and illi cit drugs. She reports no access to firearms or other weapons. As the patient no longer met criteria for continued inpatient psychiatric hospitalization, she was subsequently discharged. Mental status exam: General Appearance: Patient appears to be stated age is alert, pleasant, and cooperative. Patient is in no acute distress and has fair hygiene and grooming Behavior: Patient is calmly seated without any agitated behavior. Speech: Patient's speech is fluent and nonpressured. Mood/Affect: Patient reports their mood is "much better", affect is congruent and euthymic to bright. Suicidality/Homicidality: Patient denies having any suicidal or homicidal ideation intent or plan. Perceptions: Patient denies any auditory or visual hallucinations. Though content/process: There is no evidence of any delusional thought content and thought process is linear and goal-directed. Future and goal oriented Memory and concentration: AOX3, grossly intact for the purposes of this session. Can spell "WORLD" backwards correctly. Judgment and insight: Improved with guarded prognosis Impression: Schizoaffective disorder, bipolar type Psychogenic polydipsia Plan: -Continue with discharge today as patient has improved and stabilized psychiatrically and is not currently an imminent threat to herself and/or others. She will remain at chronically elevated risk and prior to the general population due to the severity and chronicity of her mental illness. She will require a high level of care in the outpatient setting and would benefit from ACT team in outpatient setting. -Continue medications: Prolixin decanoate 50 mg IM - recommended to administer [id number] due to severity of mental illness - Her next dose would be due on 02/22/2023. Depakene syrup 750 mg twice daily for mood stabilization Klonopin 0.5 mg twice a day for anxiety - may be tapered in outpatient setting Prolixin 2 mg twice a day at 0900, 1600 for psychosis/mood stabilization - consider taper in the outpatient setting as patient is continued on prolixin decanoate. Seroquel 100 mg at bedtime for mood stabilization and psychosis - Patient is on dual antipsychotic therapy. May taper seroquel should patient be stable on monotherapy with prolixin. Synthroid 125 mcg for thyroid disorder As per discussion with medicine Dr Yeager- Continue warfarin as dosed from her home medications with recommendations for outpatient primary care follow-up in 2 weeks post discharge. Patient was educated on the importance of adherence and monitoring. -Patient was counseled on the need for medication compliance and appropriate follow-up at mental health and also primary care for medical issues. Patient verbalized understanding and agreed. -Social work to arrange for and conduct family meeting to ensure safety upon discharge and answer any questions/concerns. Social work also to arrange for patients follow up appointments with [facility] for psychiatric care along with follow up with primary care provider. -Patient counseled on abstaining from recreational drugs and marijuana and alcohol. Was informed/educated on the adverse effects on their physical and mental health. Patient verbally agreed and understood. -Patient was instructed to return to the hospital or seek immediate medical care if their psychiatric or medical symptoms do worsen or reoccur. -Psychoeducation and supportive therapy provided to patient. Risks and benefits of pharmacological treatment versus the risks and benefits of nontreatment weight and discussed. Informed consent discussion held. Common side effects of psychotropics discussed such as, but not limited to headache, GI disturbance, sexual dysfunction, movement disorders, sedation, and orthostatic hypotension. Life threatening and blackbox warnings of prescribed medications also discussed. Potential risks of operating a vehicle or heavy machinery discussed with patient at length. Advised on importance of compliance and a reliable and responsible manner. Patient advised to review FDA consumer labeling of all medications prior to taking. Patient verbalized understanding of potential risks, and agrees with current treatment plan. Patient advised to medically contact physician/emergency personnel if any acute changes in condition occur. Vital Signs Temp 98.1 F 02/19/23 07:17 Pulse 86 02/19/23 07:17 Resp 18 02/19/23 07:17 BP 136/83 02/19/23 07:17 Pulse Ox 99 02/19/23 07:17 FiO2 Intake & Output 02/18/23 02/19/23 02/19/23 18:59 06:59 18:59 Intake Total 1040 Balance 1040 Intake: Oral 1040 Laboratory Results WBC 2.6 k/uL (3.8-10.6) L 02/07/23 06:54 RBC 3.72 m/uL (3.80-5.40) L 02/07/23 06:54 Hgb 11.1 gm/dL (11.4-16.0) L 02/07/23 06:54 Hct 31.1 % (34.0-46.0) L 02/07/23 06:54 MCV 83.4 fL (80.0-100.0) 02/07/23 06:54 MCH 29.8 pg (25.0-35.0) 02/07/23 06:54 MCHC 35.7 g/dL (31.0-37.0) 02/07/23 06:54 RDW 12.9 % (11.5-15.5) 02/07/23 06:54 Plt Count 251 k/uL (150-450) 02/07/23 06:54 MPV 7.2 02/07/23 06:54 Neutrophils % 67 % 02/07/23 06:54 Lymphocytes % 20 % 02/07/23 06:54 Monocytes % 7 % 02/07/23 06:54 Eosinophils % 3 % 02/07/23 06:54 Basophils % 1 % 02/07/23 06:54 Neutrophils # 1.7 k/uL (1.3-7.7) 02/07/23 06:54 Lymphocytes # 0.5 k/uL (1.0-4.8) L 02/07/23 06:54 Monocytes # 0.2 k/uL (0-1.0) 02/07/23 06:54 Eosinophils # 0.1 k/uL (0-0.7) 02/07/23 06:54 Basophils # 0.0 k/uL (0-0.2) 02/07/23 06:54 Hyperchromasia Slight 02/07/23 06:54 PT 38.4 sec (9.0-12.0) H 02/19/23 07:19 INR 3.9 (<1.2) H 02/19/23 07:19 Sodium 126 mmol/L (137-145) L 02/13/23 11:57 Potassium 4.4 mmol/L (3.5-5.1) 02/13/23 11:57 Chloride 94 mmol/L (98-107) L 02/13/23 11:57 Carbon Dioxide 26 mmol/L (22-30) 02/13/23 11:57 Anion Gap 6 mmol/L 02/13/23 11:57 BUN 11 mg/dL (7-17) 02/13/23 11:57 Creatinine 0.63 mg/dL (0.52-1.04) 02/13/23 11:57 Est GFR (CKD-EPI)AfAm >90 (>60 ml/min/1.73 sqM) 02/13/23 11:57 Est GFR (CKD-EPI)NonAf >90 (>60 ml/min/1.73 sqM) 02/13/23 11:57 Glucose 152 mg/dL (74-99) H 02/13/23 11:57 POC Glucose (mg/dL) 110 mg/dL (70-110) 02/19/23 07:38 POC Glu Mint Wafer Depositor ID [place] 02/19/23 07:38 Calcium 8.1 mg/dL (8.4-10.2) L 02/13/23 11:57 Total Bilirubin 0.3 mg/dL (0.2-1.3) 02/13/23 11:57 AST 32 U/L (14-36) 02/13/23 11:57 ALT 37 U/L (4-34) H 02/13/23 11:57 Alkaline Phosphatase 56 U/L (38-126) 02/13/23 11:57 Ammonia 25 umol/L (<30) 02/13/23 11:57 Total Protein 5.2 g/dL (6.3-8.2) L 02/13/23 11:57 Albumin 3.2 g/dL (3.5-5.0) L 02/13/23 11:57 Valproic Acid 90.2 ug/mL 02/13/23 11:57 Free Valproic Acid 18.9 mg/L (4.8-17.3) H 02/07/23 06:54 Allergies Allergy/AdvReac Type Severity Reaction Status Date / Time codeine AdvReac UPSET Verified 01/30/23 21:59 STOMACH Patient Condition at Discharge: Stable Plan - Discharge Summary Discharge Rx Participant: No New Discharge Prescriptions: New fluPHENAZine decanoate [Prolixin Decanoate] 50 mg IM [id number] #1 each Valproic Acid Oral Soln [Depakene Syrup] 750 mg PO BID 30 Days #900 ml clonazePAM [KlonoPIN] 0.5 mg PO BID 30 Days #60 tab fluPHENAZine [Prolixin] 2 mg PO BID@0900,1600 30 Days #120 tab QUEtiapine [SEROquel] 100 mg PO HS 30 Days #30 tab Levothyroxine Sodium [Synthroid] 125 mcg PO 0630 30 Days #30 tab Continue Metoprolol Succinate (ER) [Toprol XL] 50 mg PO DAILY Loratadine [Claritin] 10 mg PO DAILY tab Cholecalciferol [Vitamin D3 (25 Mcg = 1000 Iu)] 50 mcg PO DAILY 30 Days #60 tab Atorvastatin [Lipitor] 80 mg PO DAILY lisinopriL [Zestril] 20 mg PO DAILY tab Ascorbic Acid [Vitamin C] 500 mg PO DAILY #30 tab Warfarin [Coumadin] 5 mg PO SUTUWETHSA #10 tab Warfarin [Coumadin] 7.5 mg PO MOFR #4 tab Discontinued Levothyroxine Sodium 125 mcg PO DAILY LORazepam [Ativan] 0.5 mg PO Q6HR PRN tab PRN Reason: Anxiety Acetaminophen Tab [Tylenol] 650 mg PO Q6HR PRN tab PRN Reason: Fever And/ Or Pain INSULIN ASPART (NovoLOG) [NovoLOG (formulary)] 0 unit SQ ACHS each Ziprasidone [Geodon] 40 mg PO AC-BID 30 Days #60 cap Pseudoephedrine 12Hr [Sudafed 12 Hour] 120 mg PO Q12HR #20 tab clonazePAM [KlonoPIN] 0.5 mg PO BID tab Enoxaparin [Lovenox] 80 mg SQ BID 7 Days #14 each Discharge Medication List Atorvastatin [Lipitor] 80 mg PO DAILY 06/29/22 [History] Metoprolol Succinate (ER) [Toprol XL] 50 mg PO DAILY 01/10/23 [History] Loratadine [Claritin] 10 mg PO DAILY tab 01/15/23 [Rx] lisinopriL [Zestril] 20 mg PO DAILY tab 01/15/23 [Rx] Ascorbic Acid [Vitamin C] 500 mg PO DAILY #30 tab 01/24/23 [Rx] Cholecalciferol [Vitamin D3 (25 Mcg = 1000 Iu)] 50 mcg PO DAILY 30 Days #60 tab 01/24/23 [Rx] Levothyroxine Sodium [Synthroid] 125 mcg PO 0630 30 Days #30 tab 02/19/23 [Rx] QUEtiapine [SEROquel] 100 mg PO HS 30 Days #30 tab 02/19/23 [Rx] Valproic Acid Oral Soln [Depakene Syrup] 750 mg PO BID 30 Days #900 ml 02/19/23 [Rx] Warfarin [Coumadin] 5 mg PO SUTUWETHSA #10 tab 02/19/23 [Rx] Warfarin [Coumadin] 7.5 mg PO MOFR #4 tab 02/19/23 [Rx] clonazePAM [KlonoPIN] 0.5 mg PO BID 30 Days #60 tab 02/19/23 [Rx] fluPHENAZine [Prolixin] 2 mg PO BID@0900,1600 30 Days #120 tab 02/19/23 [Rx] fluPHENAZine decanoate [Prolixin Decanoate] 50 mg IM [id number] #1 each 02/19/23 [Rx] Follow up Appointment(s)/Referral(s): [facility] [Outside] - 02/19/23 1:00 pm (ACT taking pt home) [facility] [NON-STAFF] - 1 Week Patient Instructions/Handouts: Bipolar Disorder (DC), Psychotic Disorder (DC) Activity/Diet/Wound Care/Special Instructions: Avoid the use of street drugs and alcohol. Take all medications as prescribed. When you are in need of refills on your medications, please contact your medical provider and/or outpatient psychiatrist to have this done. Please go to scheduled outpatient appointments for aftercare treatment. If symptoms return or become worse, call the crisis line at and/or go to the nearest emergency room for evaluation. Discharge Disposition: HOME SELF-CARE
[2023-02-19 13:31] LABS: Glucose,Whole Blood 105 mg/dL (70-110)
--- NOTE | 2023-02-19 13:37 | P.PN ---
Progress Note - Text Progress Note Date: 02/19/23 Interval History: Initially patient was presenting well and not endorsing any significant issues or concerns however, as the patient was meeting with ACT team, she became very delusional and fixated that her grandfather "Cristofer Miranda" has set her up in a new apartment and will bringing in the paperwork for this to the treatment team. She maintains he is downstairs right now and will bring it up right now. Patient was specifically asked if the ACT Team brings her to her apartment, what would she do. The patient replies that she would not enter the apartment because "it is no longer my apartment. They gutted it. There is nothing in there." She states she would go to her new apartment that her grandfather set up for her. As the patient is displaying cause for concern for her safety, as she would likely not return home and end up wandering or trespassing on other people's property, discharge will be held at this time. Mental Status Exam: General Appearance: Patient appears to be stated age is alert, directable, and attempts to cooperate. Behavior: Patient is calmly lying down in bed without any agitated behavior Speech: Patient's speech is fluent and nonpressured. Mood/Affect: Mood is "My grandfather set up my new apartment." Affect is frustrated. Suicidality/Homicidality: Patient denies having any suicidal or homicidal ideation intent or plan. Perceptions: Patient does express possible auditory hallucinations in the form of her grandfather speaking to her. Though content/process: Patient is overtly delusional. Memory and concentration: AOX3, grossly intact for the purposes of this session Judgment and insight: Very Poor Vital Signs Temp 98.1 F 02/19/23 07:17 Pulse 86 02/19/23 07:17 Resp 18 02/19/23 07:17 BP 136/83 02/19/23 07:17 Pulse Ox 99 02/19/23 07:17 FiO2 Intake & Output 02/18/23 02/19/23 02/19/23 18:59 06:59 18:59 Intake Total 1040 Balance 1040 Intake: Oral 1040 Laboratory Results WBC 2.6 k/uL (3.8-10.6) L 02/07/23 06:54 RBC 3.72 m/uL (3.80-5.40) L 02/07/23 06:54 Hgb 11.1 gm/dL (11.4-16.0) L 02/07/23 06:54 Hct 31.1 % (34.0-46.0) L 02/07/23 06:54 MCV 83.4 fL (80.0-100.0) 02/07/23 06:54 MCH 29.8 pg (25.0-35.0) 02/07/23 06:54 MCHC 35.7 g/dL (31.0-37.0) 02/07/23 06:54 RDW 12.9 % (11.5-15.5) 02/07/23 06:54 Plt Count 251 k/uL (150-450) 02/07/23 06:54 MPV 7.2 02/07/23 06:54 Neutrophils % 67 % 02/07/23 06:54 Lymphocytes % 20 % 02/07/23 06:54 Monocytes % 7 % 02/07/23 06:54 Eosinophils % 3 % 02/07/23 06:54 Basophils % 1 % 02/07/23 06:54 Neutrophils # 1.7 k/uL (1.3-7.7) 02/07/23 06:54 Lymphocytes # 0.5 k/uL (1.0-4.8) L 02/07/23 06:54 Monocytes # 0.2 k/uL (0-1.0) 02/07/23 06:54 Eosinophils # 0.1 k/uL (0-0.7) 02/07/23 06:54 Basophils # 0.0 k/uL (0-0.2) 02/07/23 06:54 Hyperchromasia Slight 02/07/23 06:54 PT 38.4 sec (9.0-12.0) H 02/19/23 07:19 INR 3.9 (<1.2) H 02/19/23 07:19 Sodium 126 mmol/L (137-145) L 02/13/23 11:57 Potassium 4.4 mmol/L (3.5-5.1) 02/13/23 11:57 Chloride 94 mmol/L (98-107) L 02/13/23 11:57 Carbon Dioxide 26 mmol/L (22-30) 02/13/23 11:57 Anion Gap 6 mmol/L 02/13/23 11:57 BUN 11 mg/dL (7-17) 02/13/23 11:57 Creatinine 0.63 mg/dL (0.52-1.04) 02/13/23 11:57 Est GFR (CKD-EPI)AfAm >90 (>60 ml/min/1.73 sqM) 02/13/23 11:57 Est GFR (CKD-EPI)NonAf >90 (>60 ml/min/1.73 sqM) 02/13/23 11:57 Glucose 152 mg/dL (74-99) H 02/13/23 11:57 POC Glucose (mg/dL) 105 mg/dL (70-110) 02/19/23 13:29 POC Glu Thread Clipper ID [place] 02/19/23 13:29 Calcium 8.1 mg/dL (8.4-10.2) L 02/13/23 11:57 Total Bilirubin 0.3 mg/dL (0.2-1.3) 02/13/23 11:57 AST 32 U/L (14-36) 02/13/23 11:57 ALT 37 U/L (4-34) H 02/13/23 11:57 Alkaline Phosphatase 56 U/L (38-126) 02/13/23 11:57 Ammonia 25 umol/L (<30) 02/13/23 11:57 Total Protein 5.2 g/dL (6.3-8.2) L 02/13/23 11:57 Albumin 3.2 g/dL (3.5-5.0) L 02/13/23 11:57 Valproic Acid 90.2 ug/mL 02/13/23 11:57 Free Valproic Acid 18.9 mg/L (4.8-17.3) H 02/07/23 06:54 Assessment Schizoaffective disorder, bipolar type Psychogenic polydipsia Hyponatremia Plan: -Patient continues to meet criteria for inpatient psychiatric admission for symptom stabilization and safety. Patient waived and stipulated court. -Medications: Prolixin Decanoate 50 mg IM to be administered on 02/08/2023. Next dose due on 02/22/2023. Rishi administer this medication prior to discharge. Continue Prolixin 2 mg twice daily at 0900, 1600. Continue Seroquel 100 mg at bedtime for psychosis. Decrease Depakene to 500 mg in the morning and 750 mg at bedtime. Concern for depakote toxicity as levels are higher limit of normal. EKG reviewed. QTc 466 ms. Recheck ammonia, CBC, CMP, UA with reflex for culture. -When necessary Ativan and Prolixin for agitation/aggression. -SW on board for discharge planning. Encouraged the patient to participate in milieu.
[2023-02-19 15:16] LABS: ALT 35 U/L (4-34); AST 33 U/L (14-36); African American GFR (CKD) >90 (>60 ml/min/1.73 sqM); Albumin 3.8 g/dL (3.5-5.0); Alkaline Phosphatase 66 U/L (38-126); Anion Gap 7 mmol/L; Blood Urea Nitrogen 17 mg/dL (7-17); Calcium 8.9 mg/dL (8.4-10.2); Carbon Dioxide 28 mmol/L (22-30); Chloride 96 mmol/L (98-107); Glucose 111 mg/dL (74-99); Non-African American GFR(CKD) >90 (>60 ml/min/1.73 sqM); Potassium 4.7 mmol/L (3.5-5.1); Sodium 131 mmol/L (137-145); Total Bilirubin 0.4 mg/dL (0.2-1.3); Total Protein 6.2 g/dL (6.3-8.2)
[2023-02-19 15:47] LABS: Basophils % (A) 1 %; Eosinophils # (A) 0.1 k/uL (0-0.7); Eosinophils % (A) 2 %; HCT 32.1 % (34.0-46.0); HGB 11.6 gm/dL (11.4-16.0); Hyperchromasia Slight; Lymphocytes # (A) 0.6 k/uL (1.0-4.8); Lymphocytes % (A) 17 %; MCH 30.4 pg (25.0-35.0); MCV 84.4 fL (80.0-100.0); Mean Platelet Volume 6.7; Monocytes # (A) 0.3 k/uL (0-1.0); Monocytes % (A) 7 %; Neutrophils # (A) 2.4 k/uL (1.3-7.7); Neutrophils % (A) 70 %; Platelet Count 258 k/uL (150-450); RDW 12.8 % (11.5-15.5); WBC 3.5 k/uL (3.8-10.6)
[2023-02-19 17:48] LABS: Glucose,Whole Blood 184 mg/dL (70-110)
[2023-02-19] MEDS ORDERED: WARFARIN 0.5 MG TAB PO ONE (18:00)
[2023-02-19 20:26] LABS: Glucose,Whole Blood 133 mg/dL (70-110)
[2023-02-19] MEDS: QUEtiapine 100 MG TAB PO SCH (20:40)
[2023-02-20] MEDS: LEVOTHYROXINE 125 MCG TAB PO SCH (06:29)
[2023-02-20 08:17] LABS: Glucose,Whole Blood 131 mg/dL (70-110)
[2023-02-20 09:24] LABS: INR 3.8 (<1.2); Prothrombin Time 37.5 sec (9.0-12.0)
[2023-02-20] MEDS: INSULIN ASPART (NovoLOG) 100 UNIT/ML VIAL SQ SCH ×4 (09:25→20:25)
[2023-02-20] MEDS: METOPROLOL SUCCINATE (ER) 50 MG TAB.ER.24H PO SCH (11:17)
[2023-02-20] MEDS: lisinopriL 20 MG TAB PO SCH (11:17)
[2023-02-20] MEDS: clonazePAM 0.5 MG TAB PO SCH ×2 (11:18→20:52)
[2023-02-20] MEDS: VALPROIC ACID ORAL SOLN 250 MG/5 ML CUP PO SCH ×2 (11:18→20:52)
[2023-02-20] MEDS: CHOLECALCIFEROL 25 MCG (1000 IU) TABLET PO SCH (11:18)
[2023-02-20] MEDS: ASCORBIC ACID 500 MG TAB PO SCH (11:18)
[2023-02-20] MEDS: ATORVASTATIN 80 MG TAB PO SCH (11:18)
[2023-02-20] MEDS: LORATADINE 10 MG TAB PO SCH (11:18)
[2023-02-20 13:05] LABS: Glucose,Whole Blood 119 mg/dL (70-110)
--- NOTE | 2023-02-20 13:20 | P.PN ---
Progress Note - Text Progress Note Date: 02/20/23 Interval History: Patient continues to endorse psychotic symptoms. She is religiously preoccupied and is expressing that "God loves all of us and expresses that she hears God speak to her." She is not endorsing any suicidal or homicidal ideation, intention, and/or plan. She reports no paranoia. She has been adherent with her medications and is not endorsing any side effects. She reports no issues regarding sleep or appetite. She bizarrely states that she can go to a new apartment and that "ACT told me so." She was informed that this provider has not received any new update. Mental Status Exam: General Appearance: Patient appears to be stated age is alert, directable, and attempts to cooperate. Behavior: Patient is calmly lying down in bed without any agitated behavior Speech: Patient's speech is fluent and nonpressured. Mood/Affect: Mood is "Ricardo loves you and all of us." Affect is bizarre. Suicidality/Homicidality: Patient denies having any suicidal or homicidal ideation intent or plan. Perceptions: Patient does express possible auditory hallucinations in the form God speaking to her. Though content/process: Patient is overtly delusional. Memory and concentration: AOX3, grossly intact for the purposes of this session Judgment and insight: Very Poor Vital Signs Temp 97.5 F L 02/20/23 06:53 Pulse 74 02/20/23 06:53 Resp 14 02/20/23 06:53 BP 121/67 02/20/23 06:53 Pulse Ox 99 02/19/23 07:17 FiO2 Intake & Output 02/19/23 02/20/23 02/20/23 18:59 06:59 18:59 Intake Total 840 Balance 840 Intake: Oral 840 Laboratory Results WBC 3.5 k/uL (3.8-10.6) L 02/19/23 14:25 RBC 3.80 m/uL (3.80-5.40) 02/19/23 14:25 Hgb 11.6 gm/dL (11.4-16.0) 02/19/23 14:25 Hct 32.1 % (34.0-46.0) L 02/19/23 14:25 MCV 84.4 fL (80.0-100.0) 02/19/23 14:25 MCH 30.4 pg (25.0-35.0) 02/19/23 14:25 MCHC 36.0 g/dL (31.0-37.0) 02/19/23 14:25 RDW 12.8 % (11.5-15.5) 02/19/23 14:25 Plt Count 258 k/uL (150-450) 02/19/23 14:25 MPV 6.7 02/19/23 14:25 Neutrophils % 70 % 02/19/23 14:25 Lymphocytes % 17 % 02/19/23 14:25 Monocytes % 7 % 02/19/23 14:25 Eosinophils % 2 % 02/19/23 14:25 Basophils % 1 % 02/19/23 14:25 Neutrophils # 2.4 k/uL (1.3-7.7) 02/19/23 14:25 Lymphocytes # 0.6 k/uL (1.0-4.8) L 02/19/23 14:25 Monocytes # 0.3 k/uL (0-1.0) 02/19/23 14:25 Eosinophils # 0.1 k/uL (0-0.7) 02/19/23 14:25 Basophils # 0.0 k/uL (0-0.2) 02/19/23 14:25 Hyperchromasia Slight 02/19/23 14:25 PT 37.5 sec (9.0-12.0) H 02/20/23 08:36 INR 3.8 (<1.2) H 02/20/23 08:36 Sodium 131 mmol/L (137-145) L 02/19/23 14:25 Potassium 4.7 mmol/L (3.5-5.1) 02/19/23 14:25 Chloride 96 mmol/L (98-107) L 02/19/23 14:25 Carbon Dioxide 28 mmol/L (22-30) 02/19/23 14:25 Anion Gap 7 mmol/L 02/19/23 14:25 BUN 17 mg/dL (7-17) 02/19/23 14:25 Creatinine 0.68 mg/dL (0.52-1.04) 02/19/23 14:25 Est GFR (CKD-EPI)AfAm >90 (>60 ml/min/1.73 sqM) 02/19/23 14:25 Est GFR (CKD-EPI)NonAf >90 (>60 ml/min/1.73 sqM) 02/19/23 14:25 Glucose 111 mg/dL (74-99) H 02/19/23 14:25 POC Glucose (mg/dL) 119 mg/dL (70-110) H 02/20/23 13:02 POC Glu Software Applications Engineer ID Yajaira Bailey 02/20/23 13:02 Calcium 8.9 mg/dL (8.4-10.2) 02/19/23 14:25 Total Bilirubin 0.4 mg/dL (0.2-1.3) 02/19/23 14:25 AST 33 U/L (14-36) 02/19/23 14:25 ALT 35 U/L (4-34) H 02/19/23 14:25 Alkaline Phosphatase 66 U/L (38-126) 02/19/23 14:25 Ammonia <9 umol/L (<30) 02/19/23 14:25 Total Protein 6.2 g/dL (6.3-8.2) L 02/19/23 14:25 Albumin 3.8 g/dL (3.5-5.0) 02/19/23 14:25 Valproic Acid 90.2 ug/mL 02/13/23 11:57 Free Valproic Acid 18.9 mg/L (4.8-17.3) H 02/07/23 06:54 Assessment Schizoaffective disorder, bipolar type Psychogenic polydipsia Hyponatremia Plan: -Patient continues to meet criteria for inpatient psychiatric admission for symptom stabilization and safety. Patient waived and stipulated court. -Medications: Prolixin Decanoate 50 mg IM to be administered on 02/08/2023. Next dose due on 02/22/2023. Rishi administer this medication prior to discharge. Continue Prolixin 2 mg twice daily at 0900, 1600. Continue Seroquel 100 mg at bedtime for psychosis. Continue Depakene 500 mg in the morning and 750 mg at bedtime. EKG reviewed. QTc 466 ms. Recheck ammonia, CBC, CMP, UA with reflex for culture. -When necessary Ativan and Prolixin for agitation/aggression. -SW on board for discharge planning. Encouraged the patient to participate in milieu.
[2023-02-20] MEDS ORDERED: WARFARIN 0.5 MG TAB PO ONE (18:00)
[2023-02-20 18:03] LABS: Glucose,Whole Blood 129 mg/dL (70-110)
[2023-02-20 20:26] LABS: Glucose,Whole Blood 139 mg/dL (70-110)
[2023-02-20] MEDS: QUEtiapine 100 MG TAB PO SCH (20:52)
[2023-02-21] MEDS: LEVOTHYROXINE 125 MCG TAB PO SCH (06:38)
[2023-02-21] MEDS: INSULIN ASPART (NovoLOG) 100 UNIT/ML VIAL SQ SCH ×3 (07:54→18:29)
[2023-02-21] MEDS: CHOLECALCIFEROL 25 MCG (1000 IU) TABLET PO SCH (07:55)
[2023-02-21] MEDS: ATORVASTATIN 80 MG TAB PO SCH (07:55)
[2023-02-21] MEDS: ASCORBIC ACID 500 MG TAB PO SCH (07:55)
[2023-02-21] MEDS: clonazePAM 0.5 MG TAB PO SCH (07:56)
[2023-02-21 07:57] LABS: Glucose,Whole Blood 144 mg/dL (70-110)
[2023-02-21] MEDS: LORATADINE 10 MG TAB PO SCH (07:57)
[2023-02-21] MEDS: METOPROLOL SUCCINATE (ER) 50 MG TAB.ER.24H PO SCH (07:57)
[2023-02-21] MEDS: lisinopriL 20 MG TAB PO SCH (07:57)
[2023-02-21] MEDS: VALPROIC ACID ORAL SOLN 250 MG/5 ML CUP PO SCH (07:59)
[2023-02-21] MEDS ORDERED: fluPHENAZine DECANOATE 25 MG/ML 5ML MDV IM ONE (10:25)
[2023-02-21 11:06] LABS: INR 1.6 (<1.2); Prothrombin Time 15.8 sec (9.0-12.0)
--- NOTE | 2023-02-21 11:23 | P.DS ---
Providers Date of admission: 01/30/23 21:25 Expected date of discharge: 02/21/23 Attending physician: Gerardo Kirkpatrick MD Consults: 01/30/23 19:43 Consult Physician Routine Consulting Provider: [facility] Hospitalists Consult Reason/Comments: H&P Do you want consulting provider notified?: Yes Primary care physician: Victorino Esparza MD - Discharge Diagnosis(es) (1) Schizoaffective disorder, bipolar type Current Visit: Yes Status: Acute Priority: High (2) Psychogenic polydipsia Current Visit: Yes Status: Acute Priority: High Hospital Course: Admission HPI: This patient is a , unemployed, 62-year-old female with significant history of schizoaffective disorder, bipolar type who presents to the hospital on 01/28/2023 for abnormal behavior and psychiatric evaluation. Patient presented to the hospital on 01/28/2023 by EMS for psychiatric evaluation. Reportedly, the patient attempted to knock on a neighbor's door who then contacted the [employer]ishing [employer]'s Department. She reports that the [employer]ishing Supervisor [employer] brought her to the hospital for psychiatric evaluation. The patient was most recently admitted onto our psychiatric unit on 01/16/2023 and was subsequently transferred to the medical floor on 01/21/2023 due to concerns for uncontrolled PT/INR on Coumadin and hyponatremia. A psychiatric consult was placed and the patient was evaluated on 01/29/2023 however appeared stable at the time. During that evaluation, the patient's Tegretol was held due to concerns for hyponatremia and she was continued on Geodon. However, the patient regressed back into a manic episode and psychiatry was reconsult to evaluate the patient on 01/30/2023. This time however, the patient was endorsing significant grandiose delusions including the belief that she was . Due to this belief, the patient began refusing necessary medical medications including her Coumadin. The patient was subsequently petitioned and certified and admitted onto the psychiatric unit. Upon evaluation on the psychiatric unit, the patient appeared to be grossly manic. She was often singing to herself and saying that God was speaking to her. She appeared to be responding to internal stimuli. She was also refusing her medications intermittently stating that she would not take any medications if he would harm her baby. Patient has a history of schizoaffective disorder, bipolar type. The patient has trialed numerous medications including Seroquel, Risperdal, Depakote, Thorazine, Prolixin decanoate, Zyprexa, Haldol, and Effexor. She was last discharged from our psychiatric unit last month on a regimen of Geodon and Tegretol on 01/21/2023. She has had numerous psychiatric hospitalizations. Patient denies any psychiatric outpatient follow-up. Patient denies any history of suicide attempts in the past. Hospital course: Upon admission to the unit patient was initially irritable, grandiose, religiously preoccupied, and had very poor insight and judgment. A demand for mental health court order was filed due to the patient's severe mental illness and her history of nonadherence with treatment. She was initially started on a regimen of Depakene liquid and her Geodon was discontinued with a transition to Prolixin in order to place her on a long-acting injectable Prolixin Decanoate due to her history of nonadherence with treatment. Over the course of the hospitalization, the patient had intermittent episodes of irritability and psychosis. Her Prolixin was gradually titrated and the patient initially displayed a positive response with this medication and addressing her target symptoms of psychosis and don. She was transitioned to Prolixin Decanoate 50 mg IM which was administered on 02/08/2023. However, the patient continued to have intermittent episodes of psychosis and paranoia. There would be times where she would not sleep at all. Furthermore, the patient displayed significant concerns for psychogenic polydipsia and she was often drinking a significant water leading to hyponatremia and she was placed on fluid restrictions. Seroquel was added to her regimen in order to address her treatment resistant psychotic and manic symptoms. Her Depakote level was found to be within the therapeutic range and was at the upper limit of normal. On this regimen of Prolixin Decanoate, oral Prolixin, Seroquel, and Depakote, the patient began displaying stability in mood and thought. Appropriate safety planning including setting the patient up with [facility] was performed prior to discharge. The patient was also monitored by the medical team for a history and physical examination. She was managed with coumadin for anticoagulation. The patient was initially going to be discharged on 02/19/2023 however the discharge was canceled as the patient was very delusional and there was concern that the patient was facing eviction from her apartment. There was consideration for having the patient placed in a shelter. However, the pa rashmi's medications were adjusted and the patient became much more linear and logical conversation. Some of the patients medications were tapered due to concern for over medication (depakote). Oral prolixin was restarted. Oral prolixin was decreased prior to discharge as the patient received another dose of prolixin decanoate. The ACT team discussed with her landlord their concerns. The patient is reported to still have her apartment. The difference being that this time, the patient is medicated compared to last time. On the day of discharge, the patient is not reporting any suicidal or homicidal ideation, intention, and/or plan. She is not reporting any auditory or visual hallucinations. She is denying any paranoia or other delusions. Patient has been adherent with her medications and is not endorsing any significant side effects. She denies any chest pain, shows breath, or palpitations. She reports no muscle tightness or abnormal muscle movements. She denies any constipation or diarrhea. She was counseled at length on the importance of medication adherence and appropriate outpatient follow-up. She was also counseled on abstaining from all substances including alcohol, tobacco, marijuana, and illicit drugs. She reports no access to firearms or other weapons. As the patient no longer met criteria for continued inpatient psychiatric hospitalization, she was subsequently discharged. The patient will follow up with the ACT team due to the severity of her mental illness. Mental status exam: General Appearance: Patient appears to be stated age is alert, pleasant, and cooperative. Patient is in no acute distress and has fair hygiene and grooming Behavior: Patient is calmly seated without any agitated behavior. Speech: Patient's speech is fluent and nonpressured. Mood/Affect: Patient reports their mood is "much better", affect is congruent and euthymic to bright. Suicidality/Homicidality: Patient denies having any suicidal or homicidal ideation intent or plan. Perceptions: Patient denies any auditory or visual hallucinations. Though content/process: There is no evidence of any delusional thought content and thought process is linear and goal-directed. Future and goal oriented Memory and concentration: AOX3, grossly intact for the purposes of this session. Can spell "WORLD" backwards correctly. Judgment and insight: Improved with guarded prognosis Impression: Schizoaffective disorder, bipolar type Psychogenic polydipsia Plan: -Continue with discharge today as patient has improved and stabilized psychiatrically and is not currently an imminent threat to herself and/or others. She will remain at chronically elevated risk compared to the general population due to the severity and chronicity of her mental illness. She will require a high level of care in the outpatient setting and would benefit from ACT team in outpatient setting. -Continue medications: Prolixin decanoate 50 mg IM was administered on 02/21/2023. Next dose due in 14 days. Depakene syrup 500 mg in the morning and 750 mg at bedtime for mood stabilization Klonopin 0.5 mg twice a day for anxiety - may be tapered in outpatient setting Prolixin 1 mg twice a day at 0900, 1600 for psychosis/mood stabilization - consider taper in the outpatient setting as patient is continued on prolixin decanoate. Seroquel 100 mg at bedtime for mood stabilization and psychosis - Patient is on dual antipsychotic therapy. May taper seroquel should patient be stable on monotherapy with prolixin. Synthroid 125 mcg for thyroid disorder As per discussion with medicine Dr Yeager- Continue warfarin as dosed from her home medications with recommendations for outpatient primary care follow-up in 2 weeks post discharge. Patient was educated on the importance of adherence and monitoring. -Patient was counseled on the need for medication compliance and appropriate follow-up at mental health and also primary care for medical issues. Patient verbalized understanding and agreed. -Social work to arrange for and conduct family meeting to ensure safety upon discharge and answer any questions/concerns. Social work also to arrange for patients follow up appointments with [facility] for psychiatric care along with follow up with primary care provider. -Patient counseled on abstaining from recreational drugs and marijuana and alcohol. Was informed/educated on the adverse effects on their physical and mental health. Patient verbally agreed and understood. -Patient was instructed to return to the hospital or seek immediate medical care if their psychiatric or medical symptoms do worsen or reoccur. -Psychoeducation and supportive therapy provided to patient. Risks and benefits of pharmacological treatment versus the risks and benefits of nontreatment weight and discussed. Informed consent discussion held. Common side effects of psychotropics discussed such as, but not limited to headache, GI disturbance, sexual dysfunction, movement disorders, sedation, and orthostatic hypotension. Life threatening and blackbox warnings of prescribed medications also discussed. Potential risks of operating a vehicle or heavy machinery discussed with patient at length. Advised on importance of compliance and a reliable and responsible manner. Patient advised to review FDA consumer labeling of all medications prior to taking. Patient verbalized understanding of potential risk s, and agrees with current treatment plan. Patient advised to medically contact physician/emergency personnel if any acute changes in condition occur. -Psychoeducation and supportive therapy provided to patient. Risks and benefits of pharmacological treatment versus the risks and benefits of nontreatment weight and discussed. Informed consent discussion held. Common side effects of psychotropics discussed such as, but not limited to headache, GI disturbance, sexual dysfunction, movement disorders, sedation, and orthostatic hypotension. Life threatening and blackbox warnings of prescribed medications also discussed. Potential risks of operating a vehicle or heavy machinery discussed with patient at length. Advised on importance of compliance and a reliable and responsible manner. Patient advised to review FDA consumer labeling of all medications prior to taking. Patient verbalized understanding of potential risks, and agrees with current treatment plan. Patient advised to medically contact physician/emergency personnel if any acute changes in condition occur. Vital Signs Temp 97.2 F L 02/21/23 07:01 Pulse 100 02/21/23 08:08 Resp 18 02/21/23 07:01 BP 134/80 02/21/23 08:08 Pulse Ox 97 02/21/23 07:01 FiO2 Intake & Output 02/20/23 02/21/23 02/21/23 18:59 06:59 18:59 Intake Total 840 Balance 840 Intake: Oral 840 Laboratory Results WBC 3.5 k/uL (3.8-10.6) L 02/19/23 14:25 RBC 3.80 m/uL (3.80-5.40) 02/19/23 14:25 Hgb 11.6 gm/dL (11.4-16.0) 02/19/23 14:25 Hct 32.1 % (34.0-46.0) L 02/19/23 14:25 MCV 84.4 fL (80.0-100.0) 02/19/23 14:25 MCH 30.4 pg (25.0-35.0) 02/19/23 14:25 MCHC 36.0 g/dL (31.0-37.0) 02/19/23 14:25 RDW 12.8 % (11.5-15.5) 02/19/23 14:25 Plt Count 258 k/uL (150-450) 02/19/23 14:25 MPV 6.7 02/19/23 14:25 Neutrophils % 70 % 02/19/23 14:25 Lymphocytes % 17 % 02/19/23 14:25 Monocytes % 7 % 02/19/23 14:25 Eosinophils % 2 % 02/19/23 14:25 Basophils % 1 % 02/19/23 14:25 Neutrophils # 2.4 k/uL (1.3-7.7) 02/19/23 14:25 Lymphocytes # 0.6 k/uL (1.0-4.8) L 02/19/23 14:25 Monocytes # 0.3 k/uL (0-1.0) 02/19/23 14:25 Eosinophils # 0.1 k/uL (0-0.7) 02/19/23 14:25 Basophils # 0.0 k/uL (0-0.2) 02/19/23 14:25 Hyperchromasia Slight 02/19/23 14:25 PT 15.8 sec (9.0-12.0) H 02/21/23 10:14 INR 1.6 (<1.2) H 02/21/23 10:14 Sodium 131 mmol/L (137-145) L 02/19/23 14:25 Potassium 4.7 mmol/L (3.5-5.1) 02/19/23 14:25 Chloride 96 mmol/L (98-107) L 02/19/23 14:25 Carbon Dioxide 28 mmol/L (22-30) 02/19/23 14:25 Anion Gap 7 mmol/L 02/19/23 14:25 BUN 17 mg/dL (7-17) 02/19/23 14:25 Creatinine 0.68 mg/dL (0.52-1.04) 02/19/23 14:25 Est GFR (CKD-EPI)AfAm >90 (>60 ml/min/1.73 sqM) 02/19/23 14:25 Est GFR (CKD-EPI)NonAf >90 (>60 ml/min/1.73 sqM) 02/19/23 14:25 Glucose 111 mg/dL (74-99) H 02/19/23 14:25 POC Glucose (mg/dL) 144 mg/dL (70-110) H 02/21/23 07:53 POC Glu [employer] Mechanic ID Tri Guerrero 02/21/23 07:53 Calcium 8.9 mg/dL (8.4-10.2) 02/19/23 14:25 Total Bilirubin 0.4 mg/dL (0.2-1.3) 02/19/23 14:25 AST 33 U/L (14-36) 02/19/23 14:25 ALT 35 U/L (4-34) H 02/19/23 14:25 Alkaline Phosphatase 66 U/L (38-126) 02/19/23 14:25 Ammonia <9 umol/L (<30) 02/19/23 14:25 Total Protein 6.2 g/dL (6.3-8.2) L 02/19/23 14:25 Albumin 3.8 g/dL (3.5-5.0) 02/19/23 14:25 Valproic Acid 90.2 ug/mL 02/13/23 11:57 Free Valproic Acid 18.9 mg/L (4.8-17.3) H 02/07/23 06:54 Allergies Allergy/AdvReac Type Severity Reaction Status Date / Time codeine AdvReac UPSET Verified 01/30/23 21:59 STOMACH Patient Condition at Discharge: Stable Plan - Discharge Summary Discharge Rx Participant: No New Discharge Prescriptions: New Valproic Acid Oral Soln [Depakene Syrup] 500 mg PO DAILY 30 Days #300 ml fluPHENAZine [Prolixin 1MG] 1 mg PO BID@0900,1600 30 Days #60 tablet clonazePAM [KlonoPIN] 0.5 mg PO BID 30 Days #60 tab QUEtiapine [SEROquel] 100 mg PO HS 30 Days #30 tab Levothyroxine Sodium [Synthroid] 125 mcg PO 0630 30 Days #30 tab Valproic Acid Oral Soln [Depakene Syrup] 750 mg PO HS 30 Days #45 ml fluPHENAZine decanoate [Prolixin Decanoate] 50 mg IM [id number] #1 each Continue Metoprolol Succinate (ER) [Toprol XL] 50 mg PO DAILY Loratadine [Claritin] 10 mg PO DAILY tab Cholecalciferol [Vitamin D3 (25 Mcg = 1000 Iu)] 50 mcg PO DAILY 30 Days #60 tab Atorvastatin [Lipitor] 80 mg PO DAILY lisinopriL [Zestril] 20 mg PO DAILY tab Ascorbic Acid [Vitamin C] 500 mg PO DAILY #30 tab Warfarin [Coumadin] 5 mg PO SUTUWETHSA #10 tab Warfarin [Coumadin] 7.5 mg PO MOFR #4 tab Discontinued Levothyroxine Sodium 125 mcg PO DAILY LORazepam [Ativan] 0.5 mg PO Q6HR PRN tab PRN Reason: Anxiety Acetaminophen Tab [Tylenol] 650 mg PO Q6HR PRN tab PRN Reason: Fever And/ Or Pain INSULIN ASPART (NovoLOG) [NovoLOG (formulary)] 0 unit SQ ACHS each Ziprasidone [Geodon] 40 mg PO AC-BID 30 Days #60 cap Pseudoephedrine 12Hr [Sudafed 12 Hour] 120 mg PO Q12HR #20 tab clonazePAM [KlonoPIN] 0.5 mg PO BID tab Enoxaparin [Lovenox] 80 mg SQ BID 7 Days #14 each Discharge Medication List Atorvastatin [Lipitor] 80 mg PO DAILY 06/29/22 [History] Metoprolol Succinate (ER) [Toprol XL] 50 mg PO DAILY 01/10/23 [History] Loratadine [Claritin] 10 mg PO DAILY tab 01/15/23 [Rx] lisinopriL [Zestril] 20 mg PO DAILY tab 01/15/23 [Rx] Ascorbic Acid [Vitamin C] 500 mg PO DAILY #30 tab 01/24/23 [Rx] Cholecalciferol [Vitamin D3 (25 Mcg = 1000 Iu)] 50 mcg PO DAILY 30 Days #60 tab 01/24/23 [Rx] Levothyroxine Sodium [Synthroid] 125 mcg PO 0630 30 Days #30 tab 02/19/23 [Rx] QUEtiapine [SEROquel] 100 mg PO HS 30 Days #30 tab 02/19/23 [Rx] Warfarin [Coumadin] 5 mg PO SUTUWETHSA #10 tab 02/19/23 [Rx] Warfarin [Coumadin] 7.5 mg PO MOFR #4 tab 02/19/23 [Rx] clonazePAM [KlonoPIN] 0.5 mg PO BID 30 Days #60 tab 02/19/23 [Rx] Valproic Acid Oral Soln [Depakene Syrup] 500 mg PO DAILY 30 Days #300 ml 02/21/23 [Rx] Valproic Acid Oral Soln [Depakene Syrup] 750 mg PO HS 30 Days #45 ml 02/21/23 [Rx] fluPHENAZine [Prolixin 1MG] 1 mg PO BID@0900,1600 30 Days #60 tablet 02/21/23 [Rx] fluPHENAZine decanoate [Prolixin Decanoate] 50 mg IM [id number] #1 each 02/21/23 [Rx] Follow up Appointment(s)/Referral(s): [facility] [Outside] - 02/21/23 1:00 pm (ACT taking pt home today 02/28/2023 4:00-4:30pm with Dr Fernandez) [facility] [NON-STAFF] - 1 Week Patient Instructions/Handouts: Bipolar Disorder (DC), Psychotic Disorder (DC) Activity/Diet/Wound Care/Special Instructions: Avoid the use of street drugs and alcohol. Take all medications as prescribed. When you are in need of refills on your medications, please contact your medical provider and/or outpatient psychiatrist to have this done. Please go to scheduled outpatient appointments for aftercare treatment. If symptoms return or become worse, call the crisis line at and/or go to the nearest emergency room for evaluation. Discharge Disposition: HOME SELF-CARE
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
[2023-02-21 12:40] LABS: Glucose,Whole Blood 105 mg/dL (70-110)
[2023-02-21 17:59] LABS: Glucose,Whole Blood 100 mg/dL (70-110)
[2023-02-21] MEDS ORDERED: WARFARIN 7.5 MG TAB PO ONE (18:00)
[2023-02-21 18:51] VITALS: TEMP 97.5
[2023-02-21 18:54] VITALS: RESP 16
[2023-02-21 18:56] VITALS: BP 192/86; PULSE 92
--- NOTE | 2023-02-22 11:26 | P.DS ---
Providers Date of admission: 01/30/23 21:25 Expected date of discharge: 02/21/23 Attending physician: Gerardo Kirkpatrick MD Consults: 01/30/23 19:43 Consult Physician Routine Consulting Provider: [facility] Consult Reason/Comments: H&P Do you want consulting provider notified?: Yes Primary care physician: Victorino Esparza MD - Discharge Diagnosis(es) (1) Decreased responsiveness Status: Acute Priority: High (2) Schizoaffective disorder, bipolar type Status: Acute Priority: High (3) Psychogenic polydipsia Status: Acute Priority: High Hospital Course: Admission HPI: This patient is a , unemployed, 62-year-old female with significant history of schizoaffective disorder, bipolar type who presents to the hospital on 01/28/2023 for abnormal behavior and psychiatric evaluation. Patient presented to the hospital on 01/28/2023 by EMS for psychiatric evaluation. Reportedly, the patient attempted to knock on a neighbor's door who then contacted the Front Office Supervisor's Department. She reports that the Front Office Supervisor brought her to the hospital for psychiatric evaluation. The patient was most recently admitted onto our psychiatric unit on 01/16/2023 and was subsequently transferred to the medical floor on 01/21/2023 due to concerns for uncontrolled PT/INR on Coumadin and hyponatremia. A psychiatric consult was placed and the patient was evaluated on 01/29/2023 however appeared stable at the time. During that evaluation, the patient's Tegretol was held due to concerns for hyponatremia and she was continued on Geodon. However, the patient regressed back into a manic episode and psychiatry was reconsult to evaluate the patient on 01/30/2023. This time however, the patient was endorsing significant grandiose delusions including the belief that she was . Due to this belief, the patient began refusing necessary medical medications including her Coumadin. The patient was subsequently petitioned and certified and admitted onto the psychiatric unit. Upon evaluation on the psychiatric unit, the patient appeared to be grossly manic. She was often singing to herself and saying that God was speaking to her. She appeared to be responding to internal stimuli. She was also refusing her medications intermittently stating that she would not take any medications if he would harm her baby. Patient has a history of schizoaffective disorder, bipolar type. The patient has trialed numerous medications including Seroquel, Risperdal, Depakote, Thorazine, Prolixin decanoate, Zyprexa, Haldol, and Effexor. She was last discharged from our psychiatric unit last month on a regimen of Geodon and Tegretol on 01/21/2023. She has had numerous psychiatric hospitalizations. Patient denies any psychiatric outpatient follow-up. Patient denies any history of suicide attempts in the past. Hospital course: Upon admission to the unit patient was initially irritable, grandiose, religiously preoccupied, and had very poor insight and judgment. A demand for mental health court order was filed due to the patient's severe mental illness and her history of nonadherence with treatment. She was initially started on a regimen of Depakene liquid and her Geodon was discontinued with a transition to Prolixin in order to place her on a long-acting injectable Prolixin Decanoate due to her history of nonadherence with treatment. Over the course of the hospitalization, the patient had intermittent episodes of irritability and psychosis. Her Prolixin was gradually titrated and the patient initially displa yed a positive response with this medication and addressing her target symptoms of psychosis and don. She was transitioned to Prolixin Decanoate 50 mg IM which was administered on 02/08/2023. However, the patient continued to have intermittent episodes of psychosis and paranoia. There would be times where she would not sleep at all. Furthermore, the patient displayed significant concerns for psychogenic polydipsia and she was often drinking a significant water leading to hyponatremia and she was placed on fluid restrictions. Seroquel was added to her regimen in order to address her treatment resistant psychotic and manic symptoms. Her Depakote level was found to be within the therapeutic range and was at the upper limit of normal. On this regimen of Prolixin Decanoate, oral Prolixin, Seroquel, and Depakote, the patient began displaying stability in mood and thought. Appropriate safety planning including setting the patient up with [facility] was performed prior to discharge. The patient was also monitored by the medical team for a history and physical examination. She was managed with coumadin for anticoagulation. The patient was initially going to be discharged on 02/19/2023 however the discharge was canceled as the patient was very delusional and there was concern that the patient was facing eviction from her apartment. There was consideration for having the patient placed in a penitentiary. However, the patient's medications were adjusted and the patient became much more linear and logical conversation. Some of the patients medications were tapered due to concern for over medication (depakote). Oral prolixin was restarted. Oral prolixin was decreased prior to discharge as the patient received another dose of prolixin decanoate. The ACT team discussed with her landlord their concerns. The patient is reported to still have her apartment. The difference being that this time, the patient is medicated compared to last time. We attempted discharge again on 02/21/2023 however due to finances the patient's housing was not secured therefore discharge was held. Nurse notes from the night of 02/21/2023: "Pt was found on the floor on her room, she had a pillow under her head, she was holding her bible, but when staff tried to talk with her she was unresponsive. The MHT called the RN to the room, pt was not responding to verbal directions, when lifted arm above her head it dropped on her face, she did not respond to sternal rub. V/S were 165/74 92 20 pulse ox 100%, CBG was done and was 100. Called A team, they were here to assess, started an Pivl in Right AC, V/S 197/91 94, The A team escorted patient to the ER for continuation of care. " Mental status exam from when last seen by the provider: General Appearance: Patient appears to be stated age is alert, directable, and attempts to cooperate. Behavior: Patient is calmly lying down in bed without any agitated behavior Speech: Patient's speech is fluent and nonpressured. Mood/Affect: Mood is "they stole my money" Affect is paranoid and irritable. Suicidality/Homicidality: Patient denies having any suicidal or homicidal ideation intent or plan. Perceptions: No reported auditory or visual hallucinations. Though content/process: No overt delusional thought content however after being informed that she has no income or savings, the patient becomes very concerned and paranoid. Memory and concentration: AOX3, grossly intact for the purposes of this session Judgment and insight: Poor Impression: Unresponsiveness Schizoaffective disorder, bipolar type Psychogenic polydipsia Hyponatremia, resolving Plan: -Patient was transferred to the ED for medical evaluation. Vital Signs Temp 97.5 F L 02/21/23 18:00 Pulse 92 02/21/23 18:54 Resp 16 02/21/23 18:15 BP 192/86 02/21/23 18:54 Pulse Ox 97 02/21/23 07:01 FiO2 Laboratory Results WBC 3.5 k/uL (3.8-10.6) L 02/19/23 14:25 RBC 3.80 m/uL (3.80-5.40) 02/19/23 14:25 Hgb 11.6 gm/dL (11.4-16.0) 02/19/23 14:25 Hct 32.1 % (34.0-46.0) L 02/19/23 14:25 MCV 84.4 fL (80.0-100.0) 02/19/23 14:25 MCH 30.4 pg (25.0-35.0) 02/19/23 14:25 MCHC 36.0 g/dL (31.0-37.0) 02/19/23 14:25 RDW 12.8 % (11.5-15.5) 02/19/23 14:25 Plt Count 258 k/uL (150-450) 02/19/23 14:25 MPV 6.7 02/19/23 14:25 Neutrophils % 70 % 02/19/23 14:25 Lymphocytes % 17 % 02/19/23 14:25 Monocytes % 7 % 02/19/23 14:25 Eosinophils % 2 % 02/19/23 14:25 Basophils % 1 % 02/19/23 14:25 Neutrophils # 2.4 k/uL (1.3-7.7) 02/19/23 14:25 Lymphocytes # 0.6 k/uL (1.0-4.8) L 02/19/23 14:25 Monocytes # 0.3 k/uL (0-1.0) 02/19/23 14:25 Eosinophils # 0.1 k/uL (0-0.7) 02/19/23 14:25 Basophils # 0.0 k/uL (0-0.2) 02/19/23 14:25 Hyperchromasia Slight 02/19/23 14:25 PT 15.8 sec (9.0-12.0) H 02/21/23 10:14 INR 1.6 (<1.2) H 02/21/23 10:14 Sodium 131 mmol/L (137-145) L 02/19/23 14:25 Potassium 4.7 mmol/L (3.5-5.1) 02/19/23 14:25 Chloride 96 mmol/L (98-107) L 02/19/23 14:25 Carbon Dioxide 28 mmol/L (22-30) 02/19/23 14:25 Anion Gap 7 mmol/L 02/19/23 14:25 BUN 17 mg/dL (7-17) 02/19/23 14:25 Creatinine 0.68 mg/dL (0.52-1.04) 02/19/23 14:25 Est GFR (CKD-EPI)AfAm >90 (>60 ml/min/1.73 sqM) 02/19/23 14:25 Est GFR (CKD-EPI)NonAf >90 (>60 ml/min/1.73 sqM) 02/19/23 14:25 Glucose 111 mg/dL (74-99) H 02/19/23 14:25 POC Glucose (mg/dL) 100 mg/dL (70-110) 02/21/23 17:57 POC Glu Community Life Director Mara Ambrocio 02/21/23 17:57 Calcium 8.9 mg/dL (8.4-10.2) 02/19/23 14:25 Total Bilirubin 0.4 mg/dL (0.2-1.3) 02/19/23 14:25 AST 33 U/L (14-36) 02/19/23 14:25 ALT 35 U/L (4-34) H 02/19/23 14:25 Alkaline Phosphatase 66 U/L (38-126) 02/19/23 14:25 Ammonia <9 umol/L (<30) 02/19/23 14:25 Total Protein 6.2 g/dL (6.3-8.2) L 02/19/23 14:25 Albumin 3.8 g/dL (3.5-5.0) 02/19/23 14:25 Valproic Acid 90.2 ug/mL 02/13/23 11:57 Free Valproic Acid 18.9 mg/L (4.8-17.3) H 02/07/23 06:54 Allergies Allergy/AdvReac Type Severity Reaction Status Date / Time codeine AdvReac UPSET Verified 02/21/23 20:05 STOMACH Patient Condition at Discharge: Serious Plan - Discharge Summary Discharge Rx Participant: No New Discharge Prescriptions: New Valproic Acid Oral Soln [Depakene Syrup] 500 mg PO DAILY 30 Days #300 ml fluPHENAZine [Prolixin 1MG] 1 mg PO BID@0900,1600 30 Days #60 tablet clonazePAM [KlonoPIN] 0.5 mg PO BID 30 Days #60 tab QUEtiapine [SEROquel] 100 mg PO HS 30 Days #30 tab Valproic Acid Oral Soln [Depakene Syrup] 750 mg PO HS 30 Days #45 ml fluPHENAZine decanoate [Prolixin Decanoate] 50 mg IM [id number] #1 each Continue Metoprolol Succinate (ER) [Toprol XL] 50 mg PO DAILY Loratadine [Claritin] 10 mg PO DAILY tab Cholecalciferol [Vitamin D3 (25 Mcg = 1000 Iu)] 50 mcg PO DAILY 30 Days #60 tab Atorvastatin [Lipitor] 80 mg PO DAILY lisinopriL [Zestril] 20 mg PO DAILY tab Ascorbic Acid [Vitamin C] 500 mg PO DAILY #30 tab Warfarin [Coumadin] 5 mg PO SUTUWETHSA #10 tab Warfarin [Coumadin] 7.5 mg PO MOFR #4 tab Discontinued Levothyroxine Sodium 125 mcg PO DAILY LORazepam [Ativan] 0.5 mg PO Q6HR PRN tab PRN Reason: Anxiety Acetaminophen Tab [Tylenol] 650 mg PO Q6HR PRN tab PRN Reason: Fever And/ Or Pain INSULIN ASPART (NovoLOG) [NovoLOG (formulary)] 0 unit SQ ACHS each Ziprasidone [Geodon] 40 mg PO AC-BID 30 Days #60 cap Pseudoephedrine 12Hr [Sudafed 12 Hour] 120 mg PO Q12HR #20 tab clonazePAM [KlonoPIN] 0.5 mg PO BID tab Enoxaparin [Lovenox] 80 mg SQ BID 7 Days #14 each No Action Levothyroxine Sodium [Synthroid] 125 mcg PO DAILY@0630 Discharge Medication List Atorvastatin [Lipitor] 80 mg PO DAILY 06/29/22 [History] Metoprolol Succinate (ER) [Toprol XL] 50 mg PO DAILY 01/10/23 [History] Loratadine [Claritin] 10 mg PO DAILY tab 01/15/23 [Rx] lisinopriL [Zestril] 20 mg PO DAILY tab 01/15/23 [Rx] Ascorbic Acid [Vitamin C] 500 mg PO DAILY #30 tab 01/24/23 [Rx] Cholecalciferol [Vitamin D3 (25 Mcg = 1000 Iu)] 50 mcg PO DAILY 30 Days #60 tab 01/24/23 [Rx] QUEtiapine [SEROquel] 100 mg PO HS 30 Days #30 tab 02/19/23 [Rx] Warfarin [Coumadin] 5 mg PO SUTUWETHSA #10 tab 02/19/23 [Rx] Warfarin [Coumadin] 7.5 mg PO MOFR #4 tab 02/19/23 [Rx] clonazePAM [KlonoPIN] 0.5 mg PO BID 30 Days #60 tab 02/19/23 [Rx] Levothyroxine Sodium [Synthroid] 125 mcg PO DAILY@0630 02/21/23 [History] Valproic Acid Oral Soln [Depakene Syrup] 500 mg PO DAILY 30 Days #300 ml 02/21/23 [Rx] Valproic Acid Oral Soln [Depakene Syrup] 750 mg PO HS 30 Days #45 ml 02/21/23 [Rx] fluPHENAZine [Prolixin 1MG] 1 mg PO BID@0900,1600 30 Days #60 tablet 02/21/23 [Rx] fluPHENAZine decanoate [Prolixin Decanoate] 50 mg IM [id number] #1 each 02/21/23 [Rx] Follow up Appointment(s)/Referral(s): [facility] [Outside] - 02/21/23 1:00 pm (ACT taking pt home today 02/28/2023 4:00-4:30pm with Dr Fernandez) [facility] Week Patient Instructions/Handouts: Bipolar Disorder (DC), Psychotic Disorder (DC) Activity/Diet/Wound Care/Special Instructions: Avoid the use of street drugs and alcohol. Take all medications as prescribed. When you are in need of refills on your medications, please contact your medical provider and/or outpatient psychiatrist to have this done. Please go to scheduled outpatient appointments for aftercare treatment. If symptoms return or become worse, call the crisis line at and/or go to the nearest emergency room for evaluation. Discharge Disposition: HOME SELF-CARE
== END 2023-02-21 18:25 | disposition home or self-care (01) | DRG 885 ==
LOC: 3MHU 21:25
PROVIDERS: ADMIT Psychiatry & Neurology Psychiatry; ATTEND Psychiatry & Neurology Psychiatry
DX: F25.0 Schizoaffective disorder, bipolar type (principal); F23 Brief psychotic disorder; E87.1 Hypo-osmolality and hyponatremia; Z91.138 Patient's unintentional underdosing of medication regimen for other reason; E11.42 Type 2 diabetes mellitus with diabetic polyneuropathy; I10 Essential (primary) hypertension; E03.9 Hypothyroidism, unspecified; Z95.2 Presence of prosthetic heart valve; E78.5 Hyperlipidemia, unspecified; G47.33 Obstructive sleep apnea (adult) (pediatric); R63.1 Polydipsia; K21.9 Gastro-esophageal reflux disease without esophagitis; T45.516A Underdosing of anticoagulants, initial encounter; M25.559 Pain in unspecified hip; F45.8 Other somatoform disorders; F43.10 Post-traumatic stress disorder, unspecified; Z96.652 Presence of left artificial knee joint; Z28.311 Partially vaccinated for COVID-19; Z88.5 Allergy status to narcotic agent; Z86.16 Personal history of COVID-19; Z79.890 Hormone replacement therapy; Z79.01 Long term (current) use of anticoagulants; Z79.4 Long term (current) use of insulin; Z79.899 Other long term (current) drug therapy; Z81.8 Family history of other mental and behavioral disorders
CPT/HCPCS: 80053; 80164; 80165; 82140; 85025; 85610; 93005

== ENCOUNTER 2023-02-21 18:31 | Inpatient (IN) | payer MEDICARE, OTHER ==
--- NOTE | 2023-02-21 19:17 | ED ---
General Adult HPI - General Chief complaint: Altered Mental Status Stated complaint: Altered Mental Status Time Seen by Provider: 02/21/23 18:45 Source: patient, RN/MD, RN notes reviewed, old records reviewed - History of Present Illness Initial comments: This is a 62-year-old female that was on the mental health unit and she was found unresponsive no obvious signs of any trauma. Patient continues to be unresponsive. According to nursing staff when they gave her painful stimuli she did pull back. Also when he looked in her eye she purposely diverted her eyes according to one of the nursing staff. No other history is available at this time patient is not speaking to [facility] - Related Data Home Medications Medication Instructions Recorded Confirmed Atorvastatin [Lipitor] 80 mg PO DAILY 06/29/22 02/21/23 Metoprolol Succinate (ER) [Toprol 50 mg PO DAILY 01/10/23 02/21/23 XL] Levothyroxine Sodium [Synthroid] 125 mcg PO DAILY@0630 02/21/23 02/21/23 Previous Rx's Medication Instructions Recorded Loratadine [Claritin] 10 mg PO DAILY tab 01/15/23 lisinopriL [Zestril] 20 mg PO DAILY tab 01/15/23 Ascorbic Acid [Vitamin C] 500 mg PO DAILY #30 tab 01/24/23 Cholecalciferol [Vitamin D3 (25 50 mcg PO DAILY 30 Days #60 tab 01/24/23 Mcg = 1000 Iu)] QUEtiapine [SEROquel] 100 mg PO HS 30 Days #30 tab 02/19/23 Warfarin [Coumadin] 5 mg PO SUTUWETHSA #10 tab 02/19/23 Warfarin [Coumadin] 7.5 mg PO MOFR #4 tab 02/19/23 clonazePAM [KlonoPIN] 0.5 mg PO BID 30 Days #60 tab 02/19/23 Valproic Acid Oral Soln [Depakene 500 mg PO DAILY 30 Days #300 ml 02/21/23 Syrup] Valproic Acid Oral Soln [Depakene 750 mg PO HS 30 Days #45 ml 02/21/23 Syrup] fluPHENAZine [Prolixin 1MG] 1 mg PO BID@0900,1600 30 Days #60 02/21/23 tablet fluPHENAZine decanoate [Prolixin 50 mg IM [id number] #1 each 02/21/23 Decanoate] Allergies Allergy/AdvReac Type Severity Reaction Status Date / Time codeine AdvReac UPSET Verified 02/21/23 20:05 STOMACH Review of Systems ROS Statement: Those systems with pertinent positive or pertinent negative responses have been documented in the HPI. ROS Other: All systems not noted in ROS Statement are negative. Past Medical History Past Medical History: Diabetes Mellitus, GERD/Reflux, Hyperlipidemia, Hypertension, Pneumonia, Sleep Apnea/CPAP/BIPAP, Thyroid Disorder Additional Past Medical History / Comment(s): IDDM type II, neuropathy bilateral feet, rheumatic fever at age 11yrs/scar tissue on valve, aortic valve replacement (mechanical), pt states she had a blood clot around aortic valve prior to s urgery, POLLO but does not tolerate Cpap, constipation, L ovarian cyst, hypothyroid., states infection left knee. History of Any Multi-Drug Resistant Organisms: None Reported, MRSA Date of last positivie culture/infection: None MDRO Source:: None Past Surgical History: Appendectomy, Cardiac Valve Replacement, Section, Joint Replacement, Orthopedic Surgery Additional Past Surgical History / Comment(s): BLANCA, aortic valve replacement (mechanical), L total knee arthroplasty, L foot bunionectomy, EGDs, colonoscopy. Past Anesthesia/Blood Transfusion Reactions: Previous Problems w/ Anesthesia Additional Past Anesthesia/Blood Transfusion Reaction / Comment(s): Stopped breathing when a EGD was done Past Psychological History: Anxiety, Bipolar, Depression, PTSD Smoking Status: Never smoker, Unknown if ever smoked Past Alcohol Use History: None Reported Past Drug Use History: None Reported - Past Family History Father Additional Family Medical History / Comment(s): Bipolar and ETOH abuse. Mother Additional Family Medical History / Comment(s): ETOH abuse. General Exam - General Exam Comments Initial Comments: GENERAL: Patient is well-developed and well-nourished. Patient is nontoxic and well- hydrated and is in no acute distress. ENT: Neck is soft and supple. No significant lymphadenopathy is noted. Oropharynx is clear. Moist mucous membranes. Neck has full range of motion without eliciting any pain. EYES: The sclera were anicteric and conjunctiva were pink and moist. Extraocular movements were intact and pupils were equal round and reactive to light. Eyelids were unremarkable. I note the patient's eyelids she on 2 occasions purposely delivered her eyes away from PULMONARY: Unlabored respirations. Good breath sounds bilaterally. No audible rales rhonchi or wheezing was noted. CARDIOVASCULAR: There is a regular rate and rhythm without any murmurs gallops or rubs. ABDOMEN: Soft and nontender with normal bowel sounds. SKIN: Skin is clear with no lesions or rashes and otherwise unremarkable. NEUROLOGIC: Patient is only responding to painful stimuli. MUSCULOSKELETAL: Normal extremities with adequate strength and full range of motion. No lower extremity swelling or edema. No calf tenderness. LYMPHATICS: No significant lymphadenopathy is noted PSYCHIATRIC: Unable to assess Course Vital Signs 02/21/23 02/21/23 02/21/23 18:34 18:36 19:51 Pulse Rate 92 95 89 Respiratory 16 18 18 Rate Blood Pressure 186/108 202/127 146/73 O2 Sat by Pulse 100 98 97 Oximetry 02/21/23 02/21/23 02/21/23 21:00 21:38 21:40 Pulse Rate 87 89 87 Respiratory 16 5 L Rate Blood Pressure 148/87 O2 Sat by Pulse 98 98 99 Oximetry 02/21/23 02/21/23 02/21/23 21:50 22:00 22:10 Pulse Rate 88 87 85 Respiratory 12 6 L 7 L Rate Blood Pressure 158/96 O2 Sat by Pulse 99 95 96 Oximetry 02/21/23 02/21/23 02/21/23 22:20 22:30 22:40 Pulse Rate 86 88 84 Respiratory 6 L 6 L Rate Blood Pressure O2 Sat by Pulse 97 98 96 Oximetry 02/21/23 02/21/23 02/21/23 22:50 23:00 23:10 Pulse Rate 87 87 84 Respiratory 9 L 18 12 Rate Blood Pressure 162/96 162/96 162/96 O2 Sat by Pulse 98 99 98 Oximetry 02/21/23 02/21/23 02/21/23 23:20 23:30 23:40 Pulse Rate 82 85 80 Respiratory 9 L 8 L 11 L Rate Blood Pressure 162/96 162/96 162/96 O2 Sat by Pulse 97 97 97 Oximetry 02/21/23 02/22/23 02/22/23 23:50 00:00 00:10 Pulse Rate 82 84 81 Respiratory 7 L 6 L 9 L Rate Blood Pressure 162/96 162/96 162/96 O2 Sat by Pulse 99 99 96 Oximetry 02/22/23 02/22/23 02/22/23 00:20 00:30 00:40 Pulse Rate 84 81 79 Respiratory 8 L 9 L 6 L Rate Blood Pressure 162/96 162/96 162/96 O2 Sat by Pulse 99 98 97 Oximetry 02/22/23 02/22/23 02/22/23 00:50 01:00 01:25 Pulse Rate 82 80 80 Respiratory 9 L 9 L 16 Rate Blood Pressure 162/96 162/96 144/91 O2 Sat by Pulse 97 98 98 Oximetry 02/22/23 06:45 Pulse Rate 89 Respiratory 16 Rate Blood Pressure 144/90 O2 Sat by Pulse 98 Oximetry Medical Decision Making - Medical Decision Making EKG was interpreted by myself it shows a sinus rhythm at 91 bpm MN interval 260 QRS is 81 Q-T intervals 367 QTC is 415. Patient's EKG shows no ST segment elevation or depression. Was pt. sent in by a medical professional or institution (, [facility], [employer] [facility], urgent care, hospital, or longterm...) When possible be specific @ -Patient was sent to us from the mental health floor Did you speak to anyone other than the patient for history (EMS, parent, family, police, friend...)? What history was obtained from this source @ -No one was with the patient when I came into the room and there was no one to give me any report I got the report via our nursing staff Did you review nursing and triage notes (agree or disagree)? Why? @ -I reviewed and agree with nursing and triage notes Were old charts reviewed (outside hosp., previous admission, EMS record, old EKG, old radiological studies, urgent care reports/EKG's, longterm records)? Report findings @ -Prior lab work and prior charting was reviewed by myself Differential Diagnosis (chest pain, altered mental status, abdominal pain women, abdominal pain men, vaginal bleeding, weakness, fever, dyspnea, syncope, headache, dizziness, GI bleed, back pain, seizure, CVA, palpatations, mental health, musculoskeletal)? @ -Differential Altered Mental Status: Hypoglycemia, DKA, hypercapnia, ETOH, overdose, CO poisoning, trauma, myxedema coma, HTN encephalopathy, infection, encephalitis, psychosis, intercranial hemorrhage, hepatic encephalopathy, meningitis, CVA, this is not meant to be an all-inclusive list EKG interpreted by me (3pts min.). @ -As above X-rays interpreted by me (1pt min.). @ -None done CT interpreted by me (1pt min.). @ -Computed tomography scan was interpreted by myself shows no acute abnormality U/S interpreted by me (1pt. min.). @ -None done What testing was considered but not performed or refused? (CT, X-rays, U/S, labs)? Why? @ -None What meds were considered but not given or refused? Why? @ -None Did you discuss the management of the patient with other professionals (professionals i.e. , PA, PLUMBING MECHANIC, lab, RT, psych nurse, pediatric social worker, web site designer, teacher, fire officer, case filler)? Give summary @ -I spoke with the patient was given hospitalist agreed to admit the patient Was smoking cessation discussed for >3mins.? @ -No Was critical care preformed (if so, how long)? @ -No Were there social determinants of health that impacted care today? How? (Homelessness, low income, unemployed, alcoholism, drug addiction, transportation, low edu. Level, literacy, decrease access to med. care, fci, rehab)? @ -No Was there de-escalation of care discussed even if they declined (Discuss DNR or withdrawal of care, Hospice)? DNR status @ -No What co-morbidities impacted this encounter? (DM, HTN, Smoking, COPD, CAD, Cancer, CVA, ARF, Chemo, Hep., AIDS, mental health diagnosis, sleep apnea, morbid obesity)? @ -None Was patient admitted / discharged? Hospital course, mention meds given and route, prescriptions, significant lab abnormalities, going to OR and other pertinent info. @ -Patient was worked up in the emergency department patient would move when I was walking by the room but when I would walk into the room she would not make any movements with a threat eyelids she would purposely divert her eyes away from. I believe the patient's is making her decreased responsiveness but I went ahead and worked her up and got a CAT scan of her brain which showed no acute abnormality and lab work was essentially normal. At this point time I spoke with the [facility] hospitalist agreed to admit the patient I put in a co nsult for psych as well Undiagnosed new problem with uncertain prognosis? @ -No Drug Therapy requiring intensive monitoring for toxicity (Heparin, Nitro, Insulin, Cardizem)? @ -No Were any procedures done? @ -No Diagnosis/symptom? @ -decreased responsiveness Acute, or Chronic, or Acute on Chronic? @ -Acute Uncomplicated (without systemic symptoms) or Complicated (systemic symptoms)? @ -Complicated Side effects of treatment? @ -No Exacerbation, Progression, or Severe Exacerbation? @ -No Poses a threat to life or bodily function? How? (Chest pain, [place], [place], pneumonia, PE, COPD, DKA, ARF, appy, cholecystitis, CVA, Diverticulitis, Homicidal, Suicidal, threat to staff... and all critical care pts) @ -Yes because patient's unresponsiveness does not have a definitive cause at this point so is concerning for potential worsening of symptoms - Lab Data Result diagrams: 02/21/23 19:11 02/21/23 19:11 Lab Results 02/21/23 02/21/23 02/21/23 Range/Units 19:11 19:11 19:11 WBC 5.1 (3.8-10.6) k/uL RBC 3.77 L (3.80-5.40) m/uL Hgb 11.4 (11.4-16.0) gm/dL Hct 31.1 L (34.0-46.0) % MCV 82.6 (80.0-100.0) fL MCH 30.3 (25.0-35.0) pg MCHC 36.7 (31.0-37.0) g/dL RDW 13.0 (11.5-15.5) % Plt Count 253 (150-450) k/uL MPV 6.8 Neutrophils % 75 % Lymphocytes % 14 % Monocytes % 6 % Eosinophils % 1 % Basophils % 1 % Neutrophils # 3.8 (1.3-7.7) k/uL Lymphocytes # 0.7 L (1.0-4.8) k/uL Monocytes # 0.3 (0-1.0) k/uL Eosinophils # 0.1 (0-0.7) k/uL Basophils # 0.0 (0-0.2) k/uL Hyperchromasia Slight PT 13.6 H (9.0-12.0) sec INR 1.3 H (<1.2) APTT 29.6 (22.0-30.0) sec Sodium (137-145) mmol/L Potassium (3.5-5.1) mmol/L Chloride (98-107) mmol/L Carbon Dioxide (22-30) mmol/L Anion Gap mmol/L BUN (7-17) mg/dL Creatinine (0.52-1.04) mg/dL Est GFR (CKD-EPI)AfAm (>60 ml/min/1.73 sqM) Est GFR (CKD-EPI)NonAf (>60 ml/min/1.73 sqM) Glucose (74-99) mg/dL Calcium (8.4-10.2) mg/dL Total Bilirubin (0.2-1.3) mg/dL AST (14-36) U/L ALT (4-34) U/L Alkaline Phosphatase (38-126) U/L Troponin I (0.000-0.034) ng/mL Total Protein (6.3-8.2) g/dL Albumin (3.5-5.0) g/dL Urine Opiates Screen Not Detected (NotDetected) Ur Oxycodone Screen Not Detected (NotDetected) Urine Methadone Screen Not Detected (NotDetected) Ur Propoxyphene Screen Not Detected (NotDetected) Ur Barbiturates Screen Not Detected (NotDetected) U Tricyclic Antidepress Not Detected (NotDetected) Ur Phencyclidine Scrn Not Detected (NotDetected) Ur Amphetamines Screen Not Detected (NotDetected) U Methamphetamines Scrn Not Detected (NotDetected) U Benzodiazepines Scrn Not Detected (NotDetected) Urine Cocaine Screen Not Detected (NotDetected) U Marijuana (THC) Screen Not Detected (NotDetected) 02/21/23 02/21/23 Range/Units 19:11 19:11 WBC (3.8-10.6) k/uL RBC (3.80-5.40) m/uL Hgb (11.4-16.0) gm/dL Hct (34.0-46.0) % MCV (80.0-100.0) fL MCH (25.0-35.0) pg MCHC (31.0-37.0) g/dL RDW (11.5-15.5) % Plt Count (150-450) k/uL MPV Neutrophils % % Lymphocytes % % Monocytes % % Eosinophils % % Basophils % % Neutrophils # (1.3-7.7) k/uL Lymphocytes # (1.0-4.8) k/uL Monocytes # (0-1.0) k/uL Eosinophils # (0-0.7) k/uL Basophils # (0-0.2) k/uL Hyperchromasia PT (9.0-12.0) sec INR (<1.2) APTT (22.0-30.0) sec Sodium 133 L (137-145) mmol/L Potassium 4.9 (3.5-5.1) mmol/L Chloride 100 (98-107) mmol/L Carbon Dioxide 26 (22-30) mmol/L Anion Gap 7 mmol/L BUN 23 H (7-17) mg/dL Creatinine 0.85 (0.52-1.04) mg/dL Est GFR (CKD-EPI)AfAm 86 (>60 ml/min/1.73 sqM) Est GFR (CKD-EPI)NonAf 75 (>60 ml/min/1.73 sqM) Glucose 122 H (74-99) mg/dL Calcium 9.0 (8.4-10.2) mg/dL Total Bilirubin 0.6 (0.2-1.3) mg/dL AST 33 (14-36) U/L ALT 32 (4-34) U/L Alkaline Phosphatase 67 (38-126) U/L Troponin I <0.012 (0.000-0.034) ng/mL Total Protein 6.5 (6.3-8.2) g/dL Albumin 4.1 (3.5-5.0) g/dL Urine Opiates Screen (NotDetected) Ur Oxycodone Screen (NotDetected) Urine Methadone Screen (NotDetected) Ur Propoxyphene Screen (NotDetected) Ur Barbiturates Screen (NotDetected) U Tricyclic Antidepress (NotDetected) Ur Phencyclidine Scrn (NotDetected) Ur Amphetamines Screen (NotDetected) U Methamphetamines Scrn (NotDetected) U Benzodiazepines Scrn (NotDetected) Urine Cocaine Screen (NotDetected) U Marijuana (THC) Screen (NotDetected) Disposition Clinical Impression: Decreased responsiveness Disposition: ADMITTED IP TO THIS [facility] Time of Disposition: 20:49
[2023-02-21 19:31] LABS: Basophils % (A) 1 %; Eosinophils # (A) 0.1 k/uL (0-0.7); Eosinophils % (A) 1 %; HCT 31.1 % (34.0-46.0); HGB 11.4 gm/dL (11.4-16.0); Hyperchromasia Slight; Lymphocytes # (A) 0.7 k/uL (1.0-4.8); Lymphocytes % (A) 14 %; MCH 30.3 pg (25.0-35.0); MCHC 36.7 g/dL (31.0-37.0); MCV 82.6 fL (80.0-100.0); Mean Platelet Volume 6.8; Monocytes # (A) 0.3 k/uL (0-1.0); Monocytes % (A) 6 %; Neutrophils # (A) 3.8 k/uL (1.3-7.7); Neutrophils % (A) 75 %; Platelet Count 253 k/uL (150-450); RBC 3.77 m/uL (3.80-5.40); WBC 5.1 k/uL (3.8-10.6)
[2023-02-21 19:35] LABS: INR 1.3 (<1.2); Partial Thromboplastin Time 29.6 sec (22.0-30.0); Prothrombin Time 13.6 sec (9.0-12.0)
--- NOTE | 2023-02-21 19:39 | CT ---
EXAMINATION TYPE: CT brain wo con DATE OF EXAM: 02/21/2023 HISTORY: AMS CT DLP: 2577.4 mGycm. Automated Exposure Control for Dose Reduction was Utilized. TECHNIQUE: CT scan of the head is performed without contrast. COMPARISON: None. FINDINGS: There is no acute intracranial hemorrhage or midline shift identified. There is diffuse ventricular a nd sulcal prominence consistent with diffuse age-related cerebral atrophy. There is low-attenuation in the periventricular white matter consistent with chronic small vessel ischemic change. The globes are intact and the visualized sinuses are clear. IMPRESSION: No acute intracranial hemorrhage or midline shift.
[2023-02-21 19:42] LABS: Albumin 4.1 g/dL (3.5-5.0); Potassium 4.9 mmol/L (3.5-5.1); Total Bilirubin 0.6 mg/dL (0.2-1.3); Total Protein 6.5 g/dL (6.3-8.2)
[2023-02-21 19:58] LABS: Amphetamine Screen,Urine Not Detected (NotDetected); Barbiturate Screen,Urine Not Detected (NotDetected); Benzodiazepines Screen,Urine Not Detected (NotDetected); Cocaine Screen,Urine Not Detected (NotDetected); Methadone Screen, Urine Not Detected (NotDetected); Opiate Screen,Urine Not Detected (NotDetected); Oxycodone Screen, Urine Not Detected (NotDetected); Phencyclidine Screen,Urine Not Detected (NotDetected); Tricyclic Antidepressant,Urine Not Detected (NotDetected); Urn Cannabinoid Scrn Not Detected (NotDetected)
[2023-02-21] MEDS ORDERED: SODIUM CHLORIDE 0.9% 1,000 ML IV ONE (20:49)
[2023-02-22 02:07] LABS: Glucose,Whole Blood 137 mg/dL (70-110)
[2023-02-22] MEDS ORDERED: LORazepam 2 MG/ML INJ IV STA (03:38)
[2023-02-22] MEDS ORDERED: haloperidoL 1 MG TAB PO PRN (14:01)
[2023-02-22] MEDS ORDERED: HALOPERIDOL LACTATE 5 MG/ML 1 ML VIAL IM PRN ×2 (14:01→21:20)
--- NOTE | 2023-02-22 14:05 | P.CN ---
Psychiatric Consult - . Consult date: 02/22/23 Consult:: 02/22/23 14:03 IDENTIFYING DATA: This patient is a , unemployed, 62-year-old female with significant history of schizoaffective disorder, bipolar type who had an episode of unresponsiveness on the psychiatric unit and was admitted onto the emergency department on 02/21/2023 for medical evaluation and workup. HISTORY OF PRESENT ILLNESS: The patient has been admitted to this hospital since 01/28/2023 for psychiatric evaluation after being recently discharged on 01/21/2023. She was admitted to the psychiatric unit and stabilized on her current regimen of Prolixin decanoate (last administered on 02/21/2023), Prolixin, Seroquel, Depakene syrup, and Klonopin. We attempted discharge again on 02/21/2023 however due to finances the patient's housing was not secured therefore discharge was held. Nurse notes from the night of 02/21/2023: "Pt was found on the floor on her room, she had a pillow under her head, she was holding her bible, but when staff tried to talk with her she was unresponsive. The MHT called the RN to the room, pt was not responding to verbal directions, when lifted arm above her head it dropped on her face, she did not respond to sternal rub. V/S were 165/74 92 20 pulse ox 100%, CBG was done and was 100. Called A team, they were here to assess, started an Pivl in Right AC, V/S 197/91 94, The A team escorted patient to the ER for continuation of care. " Upon evaluation the emergency department, the patient is currently not reporting any suicidal or homicidal ideation, intention, and/or plan. She is not reporting any visual hallucinations however continues to report auditory hallucinations in the form of "God talking to me." She continues to be religiously preoccupied. She is however directable at this time. She is not endorsing any overt paranoia or delusions to this provider. However, the patient currently has no home to return to and the psychiatric team was working on appropriate placement including usp placement as the patient has severe mental illness. PAST PSYCHIATRIC HISTORY: Patient has a history of schizoaffective disorder, bipolar type. She is currently under court order for mental health treatment. The patient has trialed numerous medications including Seroquel, Risperdal, Depakote, Thorazine, Prolixin decanoate, Zyprexa, Haldol, and Effexor. She was last discharged from our psychiatric unit last month on a regimen of Geodon and Tegretol. She was stabilized on her current regimen of prolixin, depakote, klonopin, and seroquel but was medically discharged after a period of unresponsiveness on the psychiatric unit on 02/21/2023. She has had numerous psychiatric hospitalizations. She was enrolled in [facility] services while last on the psychiatric unit. PAST MEDICAL HISTORY: Past Medical History: Diabetes Mellitus, GERD/Reflux, Hyperlipidemia, Hypertension, Pneumonia, Sleep Apnea/CPAP/BIPAP, Thyroid Disorder Additional Past Medical History / Comment(s): IDDM type II, neuropathy bilateral feet, rheumatic fever at age 11yrs/scar tissue on valve, aortic valve replacement (mechanical), pt states she had a blood clot around aortic valve prior to surgery, POLLO but does not tolerate Cpap, constipation, L ovarian cyst, hypothyroid., states infection left knee. History of Any Multi-Drug Resistant Organisms: None Reported, MRSA Date of last positivie culture/infection: None MDRO Source:: None Past Surgical History: Appendectomy, Cardiac Valve Replacement, Sec tion, Joint Replacement, Orthopedic Surgery Additional Past Surgical History / Comment(s): BLANCA, aortic valve replacement (mechanical), L total knee arthroplasty, L foot bunionectomy, EGDs, colonoscopy. Past Anesthesia/Blood Transfusion Reactions: Previous Problems w/ Anesthesia Additional Past Anesthesia/Blood Transfusion Reaction / Comment(s): Stopped breathing when a EGD was done Past Psychological History: Anxiety, Bipolar, Depression, PTSD Smoking Status: Never smoker, Unknown if ever smoked Past Alcohol Use History: None Reported Past Drug Use History: None Reported ALLERGIES: Allergies Allergy/AdvReac Type Severity Reaction Status Date / Time codeine AdvReac UPSET Verified 02/21/23 20:05 STOMACH CHEMICAL DEPENDENCY HISTORY: Patient denies any tobacco, alcohol, marijuana, or illicit drug use. FAMILY PSYCHIATRIC/SUBSTANCE USE HISTORY: Mother and father- alcoholics Sister- bipolar, schizophrenia Son-psychosis Daughter-anxiety SOCIAL HISTORY: Patient was born and raised in [place], [place] and raised in the [place] area. Currently homeless. MENTAL STATUS EXAM: General Appearance: Patient appears to be stated age is alert, directable, and attempts to cooperate. Patient appears to have fair hygiene and grooming. Behavior: Patient displays psychomotor agitation. Speech: Patient's speech is pressured, loud, and nonlinear. Mood/Affect: Patient reports their mood is "God is good!," affect is calm. Suicidality/Homicidality: Patient denies having any homicidal ideation intent or plan. Denies any suicidal ideations intent or plan Perceptions: Patient denies any visual hallucinations but reports auditory hallucinations. Though content/process: Patient appears to be grandiose, spanks internal stimuli, and very religiously preoccupied. Memory and concentration: Very poor Judgment and insight: Very poor Laboratory Results WBC 5.1 k/uL (3.8-10.6) 02/21/23 19:11 RBC 3.77 m/uL (3.80-5.40) L 02/21/23 19:11 Hgb 11.4 gm/dL (11.4-16.0) 02/21/23 19:11 Hct 31.1 % (34.0-46.0) L 02/21/23 19:11 MCV 82.6 fL (80.0-100.0) 02/21/23 19:11 MCH 30.3 pg (25.0-35.0) 02/21/23 19:11 MCHC 36.7 g/dL (31.0-37.0) 02/21/23 19:11 RDW 13.0 % (11.5-15.5) 02/21/23 19:11 Plt Count 253 k/uL (150-450) 02/21/23 19:11 MPV 6.8 02/21/23 19:11 Neutrophils % 75 % 02/21/23 19:11 Lymphocytes % 14 % 02/21/23 19:11 Monocytes % 6 % 02/21/23 19:11 Eosinophils % 1 % 02/21/23 19:11 Basophils % 1 % 02/21/23 19:11 Neutrophils # 3.8 k/uL (1.3-7.7) 02/21/23 19:11 Lymphocytes # 0.7 k/uL (1.0-4.8) L 02/21/23 19:11 Monocytes # 0.3 k/uL (0-1.0) 02/21/23 19:11 Eosinophils # 0.1 k/uL (0-0.7) 02/21/23 19:11 Basophils # 0.0 k/uL (0-0.2) 02/21/23 19:11 Hyperchromasia Slight 02/21/23 19:11 PT 13.6 sec (9.0-12.0) H 02/21/23 19:11 INR 1.3 (<1.2) H 02/21/23 19:11 APTT 29.6 sec (22.0-30.0) 02/21/23 19:11 Sodium 133 mmol/L (137-145) L 02/21/23 19:11 Potassium 4.9 mmol/L (3.5-5.1) 02/21/23 19:11 Chloride 100 mmol/L (98-107) 02/21/23 19:11 Carbon Dioxide 26 mmol/L (22-30) 02/21/23 19:11 Anion Gap 7 mmol/L 02/21/23 19:11 BUN 23 mg/dL (7-17) H 02/21/23 19:11 Creatinine 0.85 mg/dL (0.52-1.04) 02/21/23 19:11 Est GFR (CKD-EPI)AfAm 86 (>60 ml/min/1.73 sqM) 02/21/23 19:11 Est GFR (CKD-EPI)NonAf 75 (>60 ml/min/1.73 sqM) 02/21/23 19:11 Glucose 122 mg/dL (74-99) H 02/21/23 19:11 POC Glucose (mg/dL) 137 mg/dL (70-110) H 02/22/23 02:06 POC Glu Containers Sales Representative ID Celena Hooks 02/22/23 02:06 Calcium 9.0 mg/dL (8.4-10.2) 02/21/23 19:11 Total Bilirubin 0.6 mg/dL (0.2-1.3) 02/21/23 19:11 AST 33 U/L (14-36) 02/21/23 19:11 ALT 32 U/L (4-34) 02/21/23 19:11 Alkaline Phosphatase 67 U/L (38-126) 02/21/23 19:11 Troponin I <0.012 ng/mL (0.000-0.034) 02/21/23 19:11 Total Protein 6.5 g/dL (6.3-8.2) 02/21/23 19:11 Albumin 4.1 g/dL (3.5-5.0) 02/21/23 19:11 Urine Opiates Screen Not Detected (NotDetected) 02/21/23 19:11 Ur Oxycodone Screen Not Detected (NotDetected) 02/21/23 19:11 Urine Methadone Screen Not Detected (NotDetected) 02/21/23 19:11 Ur Propoxyphene Screen Not Detected (NotDetected) 02/21/23 19:11 Ur Barbiturates Screen Not Detected (NotDetected) 02/21/23 19:11 U Tricyclic Antidepress Not Detected (NotDetected) 02/21/23 19:11 Ur Phencyclidine Scrn Not Detected (NotDetected) 02/21/23 19:11 Ur Amphetamines Screen Not Detected (NotDetected) 02/21/23 19:11 U Methamphetamines Scrn Not Detected (NotDetected) 02/21/23 19:11 U Benzodiazepines Scrn Not Detected (NotDetected) 02/21/23 19:11 Urine Cocaine Screen Not Detected (NotDetected) 02/21/23 19:11 U Marijuana (THC) Screen Not Detected (NotDetected) 02/21/23 19:11 IMPRESSIONS: Schizoaffective disorder, bipolar type PLAN: -Recommend medicine to evaluate and manage medical conditions and concerns of the patient. Patient is to be on Coumadin. -At this time patient DOES meet criteria for inpatient psychiatric admission. Once patient is medically cleared, we will readmit the patient onto our service as we work with [facility] in the act team on appropriate housing. The patient is severely mentally ill and will require accommodations in order to address her chronic delusions and impulsivity. -Would recommend the following medication changes/additions: Restart medications Seroquel 100 mg by mouth at bedtime for psychosis, Depakene syrup 500 mg in the morning and 7J 50 mg at bedtime for mood stabilization, levothyroxine 125 g daily at 6:30 AM for thyroid disorder. Patient received Prolixin Decanoate 50 mg IM on 02/21/2023. We will hold oral Prolixin at this time and we will reintroduce this medication if necessary. Haldol IM/PO PRN for agitation -Continue 1:1 sitter for safety -Patient is currently under court order for mental health treatment. She waved court and stipulated to a court order. -Will continue to follow along -When medically stable, patient is eligible for transfer to a psych bed when available. 02/22/23 14:04
[2023-02-22] MEDS ORDERED: VALPROIC ACID ORAL SOLN 250 MG/5 ML CUP PO SCH (21:00)
[2023-02-22] MEDS ORDERED: QUEtiapine 100 MG TAB PO SCH (21:00)
[2023-02-22] MEDS ORDERED: ACETAMINOPHEN TAB 325 MG TAB PO PRN (21:20)
[2023-02-22] MEDS ORDERED: MAGNESIUM HYDROXIDE 2,400 MG/10 ML CUP PO PRN (21:20)
[2023-02-22] MEDS ORDERED: LORazepam 1 MG TAB PO PRN (21:20)
[2023-02-22] MEDS ORDERED: MAG HYDROX/AL HYDROX/SIMETH 30 ML CUP PO PRN (21:20)
[2023-02-22] MEDS ORDERED: LORazepam 2 MG/ML INJ IM PRN (21:22)
[2023-02-22] MEDS ORDERED: haloperidoL 5 MG TAB PO PRN (21:23)
[2023-02-22] MEDS ORDERED: WARFARIN 7.5 MG TAB PO SCH (22:00)
[2023-02-23] MEDS: LEVOTHYROXINE 125 MCG TAB PO SCH (07:26)
[2023-02-23 07:58] LABS: Glucose,Whole Blood 130 mg/dL (70-110)
[2023-02-23 08:05] LABS: INR 1.1 (<1.2); Prothrombin Time 11.1 sec (9.0-12.0)
[2023-02-23] MEDS ORDERED: VALPROIC ACID ORAL SOLN 250 MG/5 ML CUP PO SCH (09:00)
[2023-02-23] MEDS: ATORVASTATIN 40 MG TAB PO SCH (09:43)
[2023-02-23] MEDS: CHOLECALCIFEROL 25 MCG (1000 IU) TABLET PO SCH (09:44)
[2023-02-23] MEDS: ASCORBIC ACID 500 MG TAB PO SCH (09:44)
[2023-02-23] MEDS: clonazePAM 0.5 MG TAB PO SCH ×2 (09:45→21:45)
[2023-02-23] MEDS: VALPROIC ACID ORAL SOLN 250 MG/5 ML CUP PO SCH ×2 (09:49→21:45)
--- NOTE | 2023-02-23 11:01 | P.HPIM ---
History of Present Illness H&P Date: 02/22/23 Chief Complaint: Unresponsiveness 62-year-old female patient admitted to the mental health unit with schizoaffective disorder, bipolar type for medication adjustment; patient was stabilized and was planned to be discharged home when she was found unresponsive on the floor in her room on mental health unit; 18 was called and patient was assessed at which time patient did not respond to any verbal or tactile stimulation; when arm is lifted about her head it dropped on her face and she did not respond to sternal rub; patient's vital signs at that time were blood pressure of 165/74, pulse 92, respiration 20 with pulse ox of 100% 18 evaluated patient and transferred patient to ER Patient was worked up in the emergency department with CT of the brain which was unremarkable At the time of my examination patient was found to be alert and responsive, sitting up in the bed and answering all questions appropriately; when inquired as to what happened patient claimed that she knows that she was unresponsive and hence was brought to the emergency room for evaluation Review of Systems REVIEW OF SYSTEMS: CONSTITUTIONAL: No fever, no malaise, no fatigue. HEENT: No recent visual problems or hearing problems. Denied any sore throat. CARDIOVASCULAR: No chest pain, orthopnea, PND, no palpitations, no syncope. PULMONARY: No shortness of breath, no cough, no hemoptysis. GASTROINTESTINAL: No diarrhea, no nausea, no vomiting, no abdominal pain. NEUROLOGICAL: No headaches, no weakness, no numbness. HEMATOLOGICAL: Denies any bleeding or petechiae. GENITOURINARY: Denies any burning micturition, frequency, or urgency. MUSCULOSKELETAL/RHEUMATOLOGICAL: Denies any joint pain, swelling, or any muscle pain. ENDOCRINE: Denies any polyuria or polydipsia. The rest of the 14-point review of systems is negative. Past Medical History Past Medical History: Diabetes Mellitus, GERD/Reflux, Hyperlipidemia, Hypertension, Pneumonia, Sleep Apnea/CPAP/BIPAP, Thyroid Disorder Additional Past Medical History / Comment(s): IDDM type II, neuropathy bilateral feet, rheumatic fever at age 11yrs/scar tissue on valve, aortic valve replacement (mechanical), pt states she had a blood clot around aortic valve prior to surgery, POLLO but does not tolerate Cpap, constipation, L ovarian cyst, hypothyroid., states infection left knee. History of Any Multi-Drug Resistant Organisms: None Reported, MRSA Date of last positivie culture/infection: None MDRO Source:: None Past Surgical History: Appendectomy, Cardiac Valve Replacement, Section, Joint Replacement, Orthopedic Surgery Additional Past Surgical History / Comment(s): BLANCA, aortic valve replacement (mechanical), L total knee arthroplasty, L foot bunionectomy, EGDs, colonoscopy. Past Anesthesia/Blood Transfusion Reactions: Previous Problems w/ Anesthesia Additional Past Anesthesia/Blood Transfusion Reaction / Comment(s): Stopped breathing when a EGD was done Past Psychological History: Anxiety, Bipolar, Depression, PTSD Smoking Status: Never smoker, Unknown if ever smoked Past Alcohol Use History: None Reported Past Drug Use History: None Reported - Past Family History Father Additional Family Medical History / Comment(s): Bipolar and ETOH abuse. Mother Additional Family Medical History / Comment(s): ETOH abuse. Medications and Allergies Home Medications Medication Instructions Recorded Confirmed Type Atorvastatin [Lipitor] 80 mg PO DAILY 06/29/22 02/21/23 History Metoprolol Succinate (ER) [Toprol 50 mg PO DAILY 01/10/23 02/21/23 History XL] Loratadine [Claritin] 10 mg PO DAILY tab 01/15/23 02/21/23 Rx lisinopriL [Zestril] 20 mg PO DAILY tab 01/15/23 02/21/23 Rx Ascorbic Acid [Vitamin C] 500 mg PO DAILY #30 tab 01/24/23 02/21/23 Rx Cholecalciferol [Vitamin D3 (25 50 mcg PO DAILY 30 Days #60 tab 01/24/23 02/21/23 Rx Mcg = 1000 Iu)] QUEtiapine [SEROquel] 100 mg PO HS 30 Days #30 tab 02/19/23 02/21/23 Rx Warfarin [Coumadin] 5 mg PO SUTUWETHSA #10 tab 02/19/23 02/21/23 Rx Warfarin [Coumadin] 7.5 mg PO MOFR #4 tab 02/19/23 02/21/23 Rx clonazePAM [KlonoPIN] 0.5 mg PO BID 30 Days #60 tab 02/19/23 02/21/23 Rx Levothyroxine Sodium [Synthroid] 125 mcg PO DAILY@0630 02/21/23 02/21/23 History Valproic Acid Oral Soln [Depakene 500 mg PO DAILY 30 Days #300 ml 02/21/23 02/21/23 Rx Syrup] Valproic Acid Oral Soln [Depakene 750 mg PO HS 30 Days #45 ml 02/21/23 02/21/23 Rx Syrup] fluPHENAZine [Prolixin 1MG] 1 mg PO BID@0900,1600 30 Days #60 02/21/23 02/21/23 Rx tablet fluPHENAZine decanoate [Prolixin 50 mg IM [id number] #1 each 02/21/23 02/21/23 Rx Decanoate] Allergies Allergy/AdvReac Type Severity Reaction Status Date / Time codeine AdvReac UPSET Verified 02/21/23 20:05 STOMACH Physical Exam Vitals: Vital Signs Pulse Resp BP Pulse Ox 02/22/23 06:45 89 16 144/90 98 02/22/23 01:25 80 16 144/91 98 02/22/23 01:00 80 9 L 162/96 98 02/22/23 00:50 82 9 L 162/96 97 02/22/23 00:40 79 6 L 162/96 97 02/22/23 00:30 81 9 L 162/96 98 02/22/23 00:20 84 8 L 162/96 99 02/22/23 00:10 81 9 L 162/96 96 02/22/23 00:00 84 6 L 162/96 99 02/21/23 23:50 82 7 L 162/96 99 02/21/23 23:40 80 11 L 162/96 97 02/21/23 23:30 85 8 L 162/96 97 02/21/23 23:20 82 9 L 162/96 97 02/21/23 23:10 84 12 162/96 98 02/21/23 23:00 87 18 162/96 99 02/21/23 22:50 87 9 L 162/96 98 02/21/23 22:40 84 96 02/21/23 22:30 88 6 L 98 02/21/23 22:20 86 6 L 97 02/21/23 22:10 85 7 L 96 02/21/23 22:00 87 6 L 95 02/21/23 21:50 88 12 158/96 99 02/21/23 21:40 87 99 02/21/23 21:38 89 5 L 98 02/21/23 21:00 87 16 148/87 98 02/21/23 19:51 89 18 146/73 97 02/21/23 18:36 95 18 202/127 98 02/21/23 18:34 92 16 186/108 100 Intake and Output 02/21/23 02/22/23 02/22/23 22:59 06:59 14:59 Other: Weight 79.651 kg PHYSICAL EXAMINATION: GENERAL: The patient is alert and oriented x3, not in any acute distress. Well developed, well nourished. HEENT: Pupils are round and equally reacting to light. EOMI. No scleral icterus. No conjunctival pallor. Normocephalic, atraumatic. No pharyngeal erythema. No thyromegaly. CARDIOVASCULAR: S1 and S2 present. No murmurs, rubs, or gallops. PULMONARY: Chest is clear to auscultation, no wheezing or crackles. ABDOMEN: Soft, nontender, nondistended, normoactive bowel sounds. No palpable organomegaly. MUSCULOSKELETAL: No joint swelling or deformity. EXTREMITIES: No cyanosis, clubbing, or pedal edema. NEUROLOGICAL: Gross neurological examination did not reveal any focal deficits. SKIN: No rashes. Results CBC & Chem 7: 02/21/23 19:11 02/21/23 19:11 Labs: Abnormal Lab Results - Last 24 Hours (Table) 02/21/23 02/21/23 02/21/23 Range/Units 19:11 19:11 19:11 RBC 3.77 L (3.80-5.40) m/uL Hct 31.1 L (34.0-46.0) % Lymphocytes # 0.7 L (1.0-4.8) k/uL PT 13.6 H (9.0-12.0) sec INR 1.3 H (<1.2) Sodium 133 L (137-145) mmol/L BUN 23 H (7-17) mg/dL Glucose 122 H (74-99) mg/dL POC Glucose (mg/dL) (70-110) mg/dL 02/22/23 Range/Units 02:06 RBC (3.80-5.40) m/uL Hct (34.0-46.0) % Lymphocytes # (1.0-4.8) k/uL PT (9.0-12.0) sec INR (<1.2) Sodium (137-145) mmol/L BUN (7-17) mg/dL Glucose (74-99) mg/dL POC Glucose (mg/dL) 137 H (70-110) mg/dL Assessment and Plan Assessment: 1. Decreased responsiveness; etiology remains unclear - Workup completed in ED was unremarkable; at the time of initial evaluation in ED patient would move around in the bed and 40 not warm or follow commands when somebody entered the room; and eyelids were opened she would diverticular eyes of a from the examiner - Patient will be released back to mental health unit 2. Mild hyponatremia; patient has history of psychogenic polydipsia -- patient received IV fluids in form of normal saline bolus and maintenance fluids in ED; no further treatment is recommended 3. Mild KHADRA; IV fluids as indicated above; we will monitor renal function and electrolytes and make further recommendations accordingly 4. Schizoaffective disorder, bipolar type; patient to be transferred back to mental health unit DVT prophylaxis; SCDs CODE STATUS; full code
[2023-02-23 13:09] LABS: Glucose,Whole Blood 125 mg/dL (70-110)
[2023-02-23 17:41] LABS: Glucose,Whole Blood 137 mg/dL (70-110)
[2023-02-23] MEDS ORDERED: WARFARIN 5 MG TAB PO SCH (18:00)
[2023-02-23] MEDS ORDERED: WARFARIN 7.5 MG TAB PO ONE (18:00)
[2023-02-23] MEDS: QUEtiapine 100 MG TAB PO SCH (21:45)
[2023-02-24] MEDS: LEVOTHYROXINE 125 MCG TAB PO SCH (06:48)
--- NOTE | 2023-02-24 09:17 | P.CONS ---
History of Present Illness - Reason for Consult Consult date: 02/23/23 Medical management - Chief Complaint Schizoaffective disorder - History of Present Illness 62-year-old female patient admitted to the mental health unit with schizoaffective disorder, bipolar type for medication adjustment; patient was stabilized and was planned to be discharged home when she was found unresponsive on the floor in her room on mental health unit; 18 was called and patient was as sessed at which time patient did not respond to any verbal or tactile stimulation; when arm is lifted about her head it dropped on her face and she did not respond to sternal rub; patient's vital signs at that time were blood pressure of 165/74, pulse 92, respiration 20 with pulse ox of 100% 18 evaluated patient and transferred patient to ER Patient was worked up in the emergency department with CT of the brain which was unremarkable At the time of my examination patient was found to be alert and responsive, sitting up in the bed and answering all questions appropriately; when inquired as to what happened patient claimed that she knows that she was unresponsive and hence was brought to the emergency room for evaluation Patient's workup was essentially unremarkable; he was a [facility] alert and oriented without any intervention; he is cleared to be transferred back to mental health unit Review of Systems REVIEW OF SYSTEMS: CONSTITUTIONAL: No fever, no malaise, no fatigue. HEENT: No recent visual problems or hearing problems. Denied any sore throat. CARDIOVASCULAR: No chest pain, orthopnea, PND, no palpitations, no syncope. PULMONARY: No shortness of breath, no cough, no hemoptysis. GASTROINTESTINAL: No diarrhea, no nausea, no vomiting, no abdominal pain. NEUROLOGICAL: No headaches, no weakness, no numbness. HEMATOLOGICAL: Denies any bleeding or petechiae. GENITOURINARY: Denies any burning micturition, frequency, or urgency. MUSCULOSKELETAL/RHEUMATOLOGICAL: Denies any joint pain, swelling, or any muscle pain. ENDOCRINE: Denies any polyuria or polydipsia. The rest of the 14-point review of systems is negative. Past Medical History Past Medical History: Diabetes Mellitus, GERD/Reflux, Hyperlipidemia, Hypertension, Pneumonia, Sleep Apnea/CPAP/BIPAP, Thyroid Disorder Additional Past Medical History / Comment(s): IDDM type II, neuropathy bilateral feet, rheumatic fever at age 11yrs/scar tissue on valve, aortic valve replacement (mechanical), pt states she had a blood clot around aortic valve prior to surgery, POLLO but does not tolerate Cpap, constipation, L ovarian cyst, hypothyroid., states infection left knee. History of Any Multi-Drug Resistant Organisms: None Reported, MRSA Year Discovered:: None MDRO Source:: None Past Surgical History: Appendectomy, Cardiac Valve Replacement, Section, Joint Replacement, Orthopedic Surgery Additional Past Surgical History / Comment(s): BLANCA, aortic valve replacement (mechanical), L total knee arthroplasty, L foot bunionectomy, EGDs, colonoscopy. Past Anesthesia/Blood Transfusion Reactions: Previous Problems w/ Anesthesia Additional Past Anesthesia/Blood Transfusion Reaction / Comm: Stopped breathing when a EGD was done Past Psychological History: Anxiety, Bipolar, Depression, PTSD Smoking Status: Never smoker, Unknown if ever smoked Past Alcohol Use History: None Reported Past Drug Use History: None Reported - Past Family History Father Additional Family Medical History / Comment(s): Bipolar and ETOH abuse. Mother Additional Family Medical History / Comment(s): ETOH abuse. Medications and Allergies Home Medications Medication Instructions Recorded Confirmed Type Atorvastatin [Lipitor] 80 mg PO DAILY 06/29/22 02/21/23 History Metoprolol Succinate (ER) [Toprol 50 mg PO DAILY 01/10/23 02/21/23 History XL] Loratadine [Claritin] 10 mg PO DAILY tab 01/15/23 02/21/23 Rx lisinopriL [Zestril] 20 mg PO DAILY tab 01/15/23 02/21/23 Rx Ascorbic Acid [Vitamin C] 500 mg PO DAILY #30 tab 01/24/23 02/21/23 Rx Cholecalciferol [Vitamin D3 (25 50 mcg PO DAILY 30 Days #60 tab 01/24/23 02/21/23 Rx Mcg = 1000 Iu)] QUEtiapine [SEROquel] 100 mg PO HS 30 Days #30 tab 02/19/23 02/21/23 Rx Warfarin [Coumadin] 5 mg PO SUTUWETHSA #10 tab 02/19/23 02/21/23 Rx Warfarin [Coumadin] 7.5 mg PO MOFR #4 tab 02/19/23 02/21/23 Rx clonazePAM [KlonoPIN] 0.5 mg PO BID 30 Days #60 tab 02/19/23 02/21/23 Rx Levothyroxine Sodium [Synthroid] 125 mcg PO DAILY@0630 02/21/23 02/21/23 History Valproic Acid Oral Soln [Depakene 500 mg PO DAILY 30 Days #300 ml 02/21/23 02/21/23 Rx Syrup] Valproic Acid Oral Soln [Depakene 750 mg PO HS 30 Days #45 ml 02/21/23 02/21/23 Rx Syrup] fluPHENAZine [Prolixin 1MG] 1 mg PO BID@0900,1600 30 Days #60 02/21/23 02/21/23 Rx tablet fluPHENAZine decanoate [Prolixin 50 mg IM [id number] #1 each 02/21/23 02/21/23 Rx Decanoate] Allergies Allergy/AdvReac Type Severity Reaction Status Date / Time codeine AdvReac UPSET Verified 02/21/23 20:05 STOMACH Physical Exam Vitals: Vital Signs Temp Pulse Resp BP Pulse Ox 02/22/23 22:41 97.8 F 117 H 16 138/90 98 Intake and Output 02/22/23 02/23/23 02/23/23 22:59 06:59 14:59 Other: Weight 82.645 kg PHYSICAL EXAMINATION: GENERAL: The patient is alert and oriented x3, not in any acute distress. Well developed, well nourished. HEENT: Pupils are round and equally reacting to light. EOMI. No scleral icterus. No conjunctival pallor. Normocephalic, atraumatic. No pharyngeal erythema. No thyromegaly. CARDIOVASCULAR: S1 and S2 present. No murmurs, rubs, or gallops. PULMONARY: Chest is clear to auscultation, no wheezing or crackles. ABDOMEN: Soft, nontender, nondistended, normoactive bowel sounds. No palpable organomegaly. MUSCULOSKELETAL: No joint swelling or deformity. EXTREMITIES: No cyanosis, clubbing, or pedal edema. NEUROLOGICAL: Gross neurological examination did not reveal any focal deficits. SKIN: No rashes. Results CBC & Chem 7: 02/21/23 19:11 02/21/23 19:11 Labs: Abnormal Lab Results - Last 24 Hours (Table) 02/23/23 Range/Units 07:56 POC Glucose (mg/dL) 130 H (70-110) mg/dL Assessment and Plan Assessment: 1. Schizoaffective disorder, bipolar type; management by primary team 2. Decreased responsiveness; etiology remains unclear; resolved - Workup completed in ED was unremarkable; at the time of initial evaluation in ED patient would move around in the bed and 40 not warm or follow commands when somebody entered the room; and eyelids were opened she would diverticular eyes of a from the examiner - Patient will be released back to mental health unit 2. Mild hyponatremia; patient has history of psychogenic polydipsia -- patient received IV fluids in form of normal saline bolus and maintenance fluids in ED; no further treatment is recommended 3. Mild KHADRA; IV fluids as indicated above; we will monitor renal function and electrolytes and make further recommendations accordingly 4. Schizoaffective disorder, bipolar type; patient to be transferred back to mental health unit DVT prophylaxis; SCDs CODE STATUS; full code
[2023-02-24] MEDS: ATORVASTATIN 40 MG TAB PO SCH (09:32)
[2023-02-24] MEDS: CHOLECALCIFEROL 25 MCG (1000 IU) TABLET PO SCH (09:32)
[2023-02-24] MEDS: clonazePAM 0.5 MG TAB PO SCH ×3 (09:33→19:54)
[2023-02-24] MEDS: VALPROIC ACID ORAL SOLN 250 MG/5 ML CUP PO SCH ×2 (09:33→19:54)
[2023-02-24] MEDS: ASCORBIC ACID 500 MG TAB PO SCH (09:33)
[2023-02-24 11:31] LABS: Prothrombin Time 10.5 sec (9.0-12.0)
[2023-02-24 12:44] LABS: Glucose,Whole Blood 112 mg/dL (70-110)
--- NOTE | 2023-02-24 16:36 | P.HP ---
Psychiatric H&P - . H&P Date: 02/23/23 History & Physical: Allergies Allergy/AdvReac Type Severity Reaction Status Date / Time codeine AdvReac UPSET Verified 02/21/23 20:05 STOMACH Vital Signs Temp 97.8 F 02/22/23 22:41 Pulse 117 H 02/22/23 22:41 Resp 16 02/22/23 22:41 BP 138/90 02/22/23 22:41 Pulse Ox 98 02/22/23 22:41 FiO2 Intake & Output 02/23/23 02/24/23 02/24/23 18:59 06:59 18:59 Weight 83.7 kg Laboratory Last Values WBC 5.1 k/uL (3.8-10.6) 02/21/23 19:11 RBC 3.77 m/uL (3.80-5.40) L 02/21/23 19:11 Hgb 11.4 gm/dL (11.4-16.0) 02/21/23 19:11 Hct 31.1 % (34.0-46.0) L 02/21/23 19:11 MCV 82.6 fL (80.0-100.0) 02/21/23 19:11 MCH 30.3 pg (25.0-35.0) 02/21/23 19:11 MCHC 36.7 g/dL (31.0-37.0) 02/21/23 19:11 RDW 13.0 % (11.5-15.5) 02/21/23 19:11 Plt Count 253 k/uL (150-450) 02/21/23 19:11 MPV 6.8 02/21/23 19:11 Neutrophils % 75 % 02/21/23 19:11 Lymphocytes % 14 % 02/21/23 19:11 Monocytes % 6 % 02/21/23 19:11 Eosinophils % 1 % 02/21/23 19:11 Basophils % 1 % 02/21/23 19:11 Neutrophils # 3.8 k/uL (1.3-7.7) 02/21/23 19:11 Lymphocytes # 0.7 k/uL (1.0-4.8) L 02/21/23 19:11 Monocytes # 0.3 k/uL (0-1.0) 02/21/23 19:11 Eosinophils # 0.1 k/uL (0-0.7) 02/21/23 19:11 Basophils # 0.0 k/uL (0-0.2) 02/21/23 19:11 Hyperchromasia Slight 02/21/23 19:11 PT 10.5 sec (9.0-12.0) 02/24/23 10:38 INR 1.0 (<1.2) 02/24/23 10:38 APTT 29.6 sec (22.0-30.0) 02/21/23 19:11 Sodium 133 mmol/L (137-145) L 02/21/23 19:11 Potassium 4.9 mmol/L (3.5-5.1) 02/21/23 19:11 Chloride 100 mmol/L (98-107) 02/21/23 19:11 Carbon Dioxide 26 mmol/L (22-30) 02/21/23 19:11 Anion Gap 7 mmol/L 02/21/23 19:11 BUN 23 mg/dL (7-17) H 02/21/23 19:11 Creatinine 0.85 mg/dL (0.52-1.04) 02/21/23 19:11 Est GFR (CKD-EPI)AfAm 86 (>60 ml/min/1.73 sqM) 02/21/23 19:11 Est GFR (CKD-EPI)NonAf 75 (>60 ml/min/1.73 sqM) 02/21/23 19:11 Glucose 122 mg/dL (74-99) H 02/21/23 19:11 POC Glucose (mg/dL) 112 mg/dL (70-110) H 02/24/23 12:40 POC Glu Office Automation Technician ID Linh Bhakta 02/24/23 12:40 Calcium 9.0 mg/dL (8.4-10.2) 02/21/23 19:11 Total Bilirubin 0.6 mg/dL (0.2-1.3) 02/21/23 19:11 AST 33 U/L (14-36) 02/21/23 19:11 ALT 32 U/L (4-34) 02/21/23 19:11 Alkaline Phosphatase 67 U/L (38-126) 02/21/23 19:11 Troponin I <0.012 ng/mL (0.000-0.034) 02/21/23 19:11 Total Protein 6.5 g/dL (6.3-8.2) 02/21/23 19:11 Albumin 4.1 g/dL (3.5-5.0) 02/21/23 19:11 Urine Opiates Screen Not Detected (NotDetected) 02/21/23 19:11 Ur Oxycodone Screen Not Detected (NotDetected) 02/21/23 19:11 Urine Methadone Screen Not Detected (NotDetected) 02/21/23 19:11 Ur Propoxyphene Screen Not Detected (NotDetected) 02/21/23 19:11 Ur Barbiturates Screen Not Detected (NotDetected) 02/21/23 19:11 U Tricyclic Antidepress Not Detected (NotDetected) 02/21/23 19:11 Ur Phencyclidine Scrn Not Detected (NotDetected) 02/21/23 19:11 Ur Amphetamines Screen Not Detected (NotDetected) 02/21/23 19:11 U Methamphetamines Scrn Not Detected (NotDetected) 02/21/23 19:11 U Benzodiazepines Scrn Not Detected (NotDetected) 02/21/23 19:11 Urine Cocaine Screen Not Detected (NotDetected) 02/21/23 19:11 U Marijuana (THC) Screen Not Detected (NotDetected) 02/21/23 19:11 Coronavirus (PCR) Not Detected (Not Detectd) 02/22/23 18:42 02/24/23 16:29 IDENTIFYING DATA: This patient is a , unemployed, 62-year-old female with significant history of schizoaffective disorder, bipolar type who presented to the hospital on 01/28/2023 for abnormal behavior and psychiatric evaluation. She was then transferred to the ER after she was found unresponsive on the floor. In the ER she was medically cleared and she has been readmitted to the [facility]: Patient states "I have been here for almost 40 days" after she got into an altercation with the police. She then makes nonsensical statements, and states that she does not need to be in the hospital. She denies suicidal thoughts, homicidal thoughts, hallucinations. Per nursing staff, patient has been more bizarre since coming back to the mental health unit from the ER. She has been pretending like she is the caregiver off another patient Per H and P from hospitalization: Patient presented to the hospital on 01/28/2023 by EMS for psychiatric evaluation. Reportedly, the patient attempted to knock on a neighbor's door who then contacted the [employer]. She reports that the [employer] brought her to the hospital for psychiatric evaluation. The patient was most recently admitted onto our psychiatric unit on 01/16/2023 and was subsequently transferred to the medical floor on 01/21/2023 due to concerns for uncontrolled PT/INR on Coumadin and hyponatremia. A psychiatric consult was placed and the patient was evaluated on 01/29/2023 however appeared stable at the time. During that evaluation, the patient's Tegretol was held due to concerns for hyponatremia and she was continued on Geodon. However, the patient regressed back into a manic episode and psychiatry was reconsult to evaluate the patient on 01/30/2023. This time however, the patient was endorsing significant grandiose delusions including the belief that she was . Due to this belief, the patient began refusing necessary medical medications including her Coumadin. The patient was subsequently petitioned and certified and admitted onto the psychiatric unit. Upon evaluation on the psychiatric unit, the patient appeared to be grossly manic. She was often singing to herself and saying that God was speaking to her. She appeared to be responding to internal stimuli. She was also refusing her medications intermittently stating that she would not take any medications if he would harm her baby. PAST PSYCHIATRIC HISTORY: Patient has a history of schizoaffective disorder, bipolar type. The patient has trialed numerous medications including Seroquel, Risperdal, Depakote, Thorazine, Prolixin decanoate, Zyprexa, Haldol, and Effexor. She was last discharged from our psychiatric unit last month on a regimen of Geodon and Tegretol on 01/21/2023. She has had numerous psychiatric hospitalizations. Patient denies any psychiatric outpatient follow-up. Patient denies any history of suicide attempts in the past. PMH: Past Medical History: Diabetes Mellitus, GERD/Reflux, Hyperlipidemia, Hypertension, Pneumonia, Sleep Apnea/CPAP/BIPAP, Thyroid Disorder Additional Past Medical History / Comment(s): IDDM type II, neuropathy bilateral feet, rheumatic fever at age 11yrs/scar tissue on valve, aortic valve replacement (mechanical), pt states she had a blood clot around aortic valve prior to surgery, POLLO but does not tolerate Cpap, constipation, L ovarian cyst, hypothyroid., states infection left knee. History of Any Multi-Drug Resistant Organisms: None Reported Date of last positivie culture/infection: 2013 Past Surgical History: Appendectomy, Cardiac Valve Replacement, Section, Joint Replacement, Orthopedic Surgery Additional Past Surgical History / Comment(s): BLANCA, aortic valve replacement (mechanical), L total knee arthroplasty, L foot bunionectomy, EGDs, colonoscopy. Past Anesthesia/Blood Transfusion Reactions: Previous Problems w/ Anesthesia Additional Past Anesthesia/Blood Transfusion Reaction / Comment(s): Stopped breathing when a EGD was done Past Psychological History: Anxiety, Bipolar, Depression, PTSD Smoking Status: Unknown if ever smoked Past Alcohol Use History: None Reported Past Drug Use History: None Reported ALLERGIES: Allergies Allergy/AdvReac Type Severity Reaction Status Date / Time codeine AdvReac UPSET Verified 01/30/23 21:59 STOMACH CHEMICAL DEPENDENCY HISTORY: Patient denies any tobacco, alcohol, marijuana, or illicit drug use. FAMILY PSYCHIATRIC/SUBSTANCE USE HISTORY: Mother and father- alcoholics Sister- bipolar, schizophrenia Son-psychosis Daughter-anxiety SOCIAL HISTORY: Patient was born and raised in [place], [place] and raised in the [facility] MENTAL STATUS EXAM: General Appearance: Patient appears to be stated age is alert, directable, and attempts to cooperate. Patient appears to have fair hygiene and grooming. Behavior: Patient displays psychomotor agitation. Speech: Patient's speech is pressured, loud, and nonlinear. Mood/Affect: Patient reports their mood is "blessed by God," affect is congruent and grandiose and expansive. Suicidality/Homicidality: Patient denies having any homicidal ideation intent or plan. Denies any suicidal ideations intent or plan Perceptions: Patient denies any visual hallucinations and denies any auditory hallucinations Though content/process: Patient appears to be grandiose, spanks internal stimuli, and very religiously preoccupied. Memory and concentration: Very poor Judgment and insight: Very poor STRENGTHS/WEAKNESSES: Unable to identify patient's strengths. Weakness is that the patient is nonadherent with treatment. INTELLECT: average IMPRESSIONS: Assessment Schizoaffective disorder, bipolar type Psychogenic polydipsia Hyponatremia, resolving Plan: -Patient continues to meet criteria for inpatient psychiatric admission for symptom stabilization and safety. Patient waived and stipulated court. -Medications: Prolixin Decanoate 50 mg IM administeres on 02-21-23. Patient receives this medication every 14 days. Seroquel 100 mg at bedtime for psychosis. Depakene 500 mg in the morning and 750 mg at bedtime. -When necessary Ativan and Prolixin for agitation/aggression. -SW on board for discharge planning. Encouraged the patient to participate in milieu.
--- NOTE | 2023-02-24 16:38 | P.PN ---
Progress Note - Text Interval history: Patient was seen in the conference room and was directable and agreeable to speak with keno writer/runner. Per nursing staff, patient has had faith delusions. At this time patient denies any suicidal or homicidal ideations intent or plan. Denies any Auditory or visual hallucinations. Patient denies any side effects from the medications and has been compliant with meds. Mental status exam: General Appearance: [Patient appears to be older than stated age is alert, directable, and cooperative.] She is walking around with a blanket around her and holding a Bible Behavior: [No agitated behavior. Patient is calm and directable] Speech: Patient's speech is fluent and nonpressured. Mood/Affect: Mood is improving mildly, affect is congruent and constricted. Suicidality/Homicidality: Patient denies having any suicidal or homicidal ideation intent or plan. Perceptions: Patient denies any auditory or visual hallucinations. Though content/process: Goal-directed thought process, religiously preoccupied Memory and concentration: AOX3, grossly intact for the purposes of this session Judgment and insight: improving mildly Assessment/Plan: Continue with current diagnosis. Patient continues to meet criteria for inpatient psychiatric admission for symptom stabilization and safety.[Patient will be maintained on current psychotropic medication regimen.] Monitor for medication compliance and for any psychotropic medication side effects. Will continue to monitor ongoing response to treatment. Encouraged participation in milieu.
[2023-02-24] MEDS ORDERED: WARFARIN 7.5 MG TAB PO ONE (18:00)
[2023-02-24] MEDS: QUEtiapine 100 MG TAB PO SCH (19:54)
[2023-02-25] MEDS: LEVOTHYROXINE 125 MCG TAB PO SCH (06:21)
[2023-02-25 07:32] LABS: INR 1.1 (<1.2); Prothrombin Time 11.5 sec (9.0-12.0)
[2023-02-25] MEDS: ATORVASTATIN 40 MG TAB PO SCH (09:05)
[2023-02-25] MEDS: VALPROIC ACID ORAL SOLN 250 MG/5 ML CUP PO SCH ×2 (09:05→20:39)
[2023-02-25] MEDS: CHOLECALCIFEROL 25 MCG (1000 IU) TABLET PO SCH (09:05)
[2023-02-25] MEDS: clonazePAM 0.5 MG TAB PO SCH ×3 (09:06→20:39)
[2023-02-25] MEDS: ASCORBIC ACID 500 MG TAB PO SCH (09:06)
--- NOTE | 2023-02-25 11:24 | P.PN ---
Progress Note - Text Progress Note Date: 02/25/23 Interval History: Patient continues to be religiously preoccupied. She states that "God has got me and we are in the kingdom of God." She states that she would like to be discharged because Ortega will take care of her. She was informed that we are concerned about her housing situation and her safety in the outpatient setting. The patient is denying any suicidal or homicidal ideation, intention, and/or plan. She is denying any auditory or visual hallucinations. She reports no paranoia however appears to have significant zoroastrian delusions. The patient has been noted to speak to herself loudly in prayer in her room. The patient has been adherent with her medications and is not endorsing any significant side effects at this time. She reports no issues regarding her sleep or her appetite. She denies any chest pain, shortness of breath, palpitations, musc uloskeletal issues, or any other medical problems to this provider. Mental Status Exam: General Appearance: Patient appears to be stated age is alert, directable, and attempts to cooperate. Behavior: Patient is calmly lying down in bed without any agitated behavior Speech: Patient's speech is fluent and nonpressured. Mood/Affect: Mood is "just let me go, God has got me." Affect is bizarre. Suicidality/Homicidality: Patient denies having any suicidal or homicidal ideation intent or plan. Perceptions: No auditory or visual hallucinations are endorsed. Though content/process: Patient is overtly delusional. Very religiously preoccupied. Memory and concentration: AOX3, grossly intact for the purposes of this session Judgment and insight: Very Poor Vital Signs Temp 97.8 F 02/25/23 06:09 Pulse 93 02/25/23 06:09 Resp 16 02/25/23 06:09 BP 123/68 02/25/23 06:09 Pulse Ox 97 02/25/23 06:09 FiO2 Intake & Output 02/24/23 02/25/23 02/25/23 18:59 06:59 18:59 Weight 83.7 kg Laboratory Results - Last 24 Hours 02/24/23 02/24/23 02/25/23 10:38 12:40 06:39 PT 10.5 11.5 INR 1.0 1.1 POC Glucose (mg/dL) 112 H POC Glu Platinum And Palladium Kettle Tender ID Linh Bhakta Assessment Schizoaffective disorder, bipolar type Psychogenic polydipsia Plan: -Patient continues to meet criteria for inpatient psychiatric admission for symptom stabilization and safety. Patient waived and stipulated court. -Medications: Prolixin Decanoate 50 mg IM with last admission on 02/21/2023. Increase Seroquel to 150 mg at bedtime for psychosis. Continue Depakene 500 mg in the morning and 750 mg at bedtime. Klonopin 0.5 mg by mouth twice a day for irritability/anxiety -When necessary Ativan and Haldol for agitation/aggression. -SW on board for discharge planning. Encouraged the patient to participate in milieu.
[2023-02-25] MEDS ORDERED: WARFARIN 7.5 MG TAB PO ONE (18:00)
[2023-02-25] MEDS: QUEtiapine 100 MG TAB PO SCH (20:39)
[2023-02-26] MEDS: LEVOTHYROXINE 125 MCG TAB PO SCH (05:47)
[2023-02-26] MEDS: VALPROIC ACID ORAL SOLN 250 MG/5 ML CUP PO SCH ×2 (08:25→21:00)
[2023-02-26] MEDS: ATORVASTATIN 40 MG TAB PO SCH ×2 (08:25→08:32)
[2023-02-26] MEDS: CHOLECALCIFEROL 25 MCG (1000 IU) TABLET PO SCH (08:25)
[2023-02-26] MEDS: clonazePAM 0.5 MG TAB PO SCH ×2 (08:26→21:01)
[2023-02-26] MEDS: ENOXAPARIN 120 MG/0.8 ML SYRINGE SQ SCH (08:26)
[2023-02-26] MEDS: ASCORBIC ACID 500 MG TAB PO SCH (08:26)
[2023-02-26 11:53] LABS: INR 1.4 (<1.2)
--- NOTE | 2023-02-26 12:02 | P.PN ---
Progress Note - Text Progress Note Date: 02/26/23 Interval History: Patient continues to be religiously preoccupied. She appears to be responding to internal stimuli and is in open conversation with "God." She endorses auditory hallucinations and has been acting on her muslim preoccupation and delusions. She has confronted other patients out of belief they are devils or witches. She has been intrusive with peers. She required IM medication due to agitation last night. She continues to be fixated on discharge and scientologist. She reports no visual hallucinations. She reports no suicidal or homicidal ideation. She has been adherent with her medications and is not reporting any side effects. Mental Status Exam: General Appearance: Patient appears to be stated age is alert, directable, and attempts to cooperate. Behavior: Patient is seated in her chair and is dispalying elevated psychomotor activity. Speech: Patient's speech is fluent and nonpressured. Mood/Affect: Mood is "You need to listen to me. God is telling me this." Affect is bizarre, grandiose. Suicidality/Homicidality: Patient denies having any suicidal or homicidal ideation intent or plan. Perceptions: Auditory hallucinations evident. No visual hallucinations. Though content/process: Patient is overtly delusional. Very religiously preo ccupied. Memory and concentration: AOX3, grossly intact for the purposes of this session Judgment and insight: Very Poor Vital Signs Temp 98.1 F 02/26/23 02:00 Pulse 82 02/26/23 02:00 Resp 17 02/26/23 02:00 BP 147/77 02/26/23 02:00 Pulse Ox 98 02/26/23 02:00 FiO2 Laboratory Results - Last 24 Hours 02/26/23 10:45 PT 14.0 H INR 1.4 H Assessment Schizoaffective disorder, bipolar type Psychogenic polydipsia Plan: -Patient continues to meet criteria for inpatient psychiatric admission for symptom stabilization and safety. Patient waived and stipulated court. -Medications: Prolixin Decanoate 50 mg IM with last admission on 02/21/2023. Restart Prolixin 2 mg at 1200 and 1600. Seroquel 150 mg at bedtime for psychosis. Continue Depakene 500 mg in the morning and 750 mg at bedtime. Klonopin 0.5 mg by mouth twice a day for irritability/anxiety -When necessary Ativan and Haldol for agitation/aggression. -SW on board for discharge planning. Encouraged the patient to participate in milieu.
[2023-02-26 13:37] LABS: African American GFR (CKD) >90 (>60 ml/min/1.73 sqM); Anion Gap 7 mmol/L; Blood Urea Nitrogen 14 mg/dL (7-17); Calcium 8.4 mg/dL (8.4-10.2); Carbon Dioxide 28 mmol/L (22-30); Chloride 89 mmol/L (98-107); Glucose 94 mg/dL (74-99); Non-African American GFR(CKD) >90 (>60 ml/min/1.73 sqM); Potassium 4.8 mmol/L (3.5-5.1); Sodium 124 mmol/L (137-145)
[2023-02-26] MEDS ORDERED: WARFARIN 7.5 MG TAB PO ONE (18:00)
[2023-02-26] MEDS: QUEtiapine 100 MG TAB PO SCH (20:59)
[2023-02-27] MEDS: LEVOTHYROXINE 125 MCG TAB PO SCH (06:42)
[2023-02-27 07:13] VITALS: RESP 16
[2023-02-27 08:18] LABS: INR 1.9 (<1.2); Prothrombin Time 18.4 sec (9.0-12.0)
[2023-02-27] MEDS: VALPROIC ACID ORAL SOLN 250 MG/5 ML CUP PO SCH ×2 (09:23→20:12)
[2023-02-27] MEDS: CHOLECALCIFEROL 25 MCG (1000 IU) TABLET PO SCH (09:24)
[2023-02-27] MEDS: ATORVASTATIN 40 MG TAB PO SCH (09:25)
[2023-02-27] MEDS: clonazePAM 0.5 MG TAB PO SCH ×3 (09:25→22:38)
[2023-02-27] MEDS: ASCORBIC ACID 500 MG TAB PO SCH (09:25)
[2023-02-27] MEDS: ENOXAPARIN 120 MG/0.8 ML SYRINGE SQ SCH (09:26)
--- NOTE | 2023-02-27 11:22 | P.PN ---
Progress Note - Text Progress Note Date: 02/27/23 Interval History: Patient does endorse significant paranoia today. She states that people are listening in on to the conversation. However, the patient does not appear to be religiously preoccupied. She is currently not reporting any suicidal or homicidal ideation, intention, and/or plan. She is not reporting any auditory or visual hallucinations. She reports no issues regarding her sleep or appetite. She has been adherent with her medications and is not endorsing any significant side effects. The patient had a guardianship hearing today. She is scheduled to go to a alf tomorrow. She is agreeable to receiving Prolixin Decanoate 50 mg IM tomorrow and having an EKG performed today. Mental Status Exam: General Appearance: Patient appears to be stated age is alert, directable, and attempts to cooperate. Behavior: Patient displays normal psychomotor activity and is seated calmly on her bed. Speech: Patient's speech is fluent and nonpressured. Mood/Affect: Mood is "close the door, I don't want anyone listening in." Affect is suspicious Suicidality/Homicidality: Patient denies having any suicidal or homicidal ideation intent or plan. Perceptions: Auditory hallucinations evident. No visual hallucinations. Though content/process: Generalized paranoia. No identifiable entity or person. Memory and concentration: AOX3, grossly intact for the purposes of this session Judgment and insight: Very Poor Vital Signs Temp 97.5 F L 02/27/23 06:52 Pulse 80 02/27/23 06:52 Resp 16 02/27/23 06:52 BP 157/72 02/27/23 06:52 Pulse Ox 99 02/27/23 06:52 FiO2 Laboratory Results - Last 24 Hours 02/26/23 02/26/23 02/27/23 10:45 12:39 08:03 PT 14.0 H 18.4 H INR 1.4 H 1.9 H Sodium 124 L Potassium 4.8 Chloride 89 L Carbon Dioxide 28 Anion Gap 7 BUN 14 Creatinine 0.69 Est GFR (CKD-EPI)AfAm >90 Est GFR (CKD-EPI)NonAf >90 Glucose 94 Calcium 8.4 Assessment Schizoaffective disorder, bipolar type Psychogenic polydipsia Plan: -Patient continues to meet criteria for inpatient psychiatric admission for symptom stabilization and safety. Patient waived and stipulated court. -Medications: Prolixin Decanoate 50 mg IM with last admission on 02/21/2023. Continue Prolixin 2 mg at 1200 and 1600. - We will likely discontinue oral Prolixin and Mr. Prolixin decanoate 50 mg IM tomorrow. Patient would likely benefit from this medication is administered weekly due to the severity of her mental illness. - EKG ordered Seroquel 150 mg at bedtime for psychosis. Continue Depakene 500 mg in the morning and 750 mg at bedtime. Klonopin 0.5 mg by mouth twice a day for irritability/anxiety -When necessary Ativan and Haldol for agitation/aggression. -SW on board for discharge planning. Encouraged the patient to participate in milieu.
[2023-02-27] MEDS: WARFARIN 10 MG TAB PO ONE ×2 (20:12→22:38)
[2023-02-27] MEDS: QUEtiapine 100 MG TAB PO SCH (22:38)
[2023-02-28] MEDS: clonazePAM 0.5 MG TAB PO SCH ×3 (00:35→08:08)
[2023-02-28] MEDS: WARFARIN 10 MG TAB PO ONE (02:02)
[2023-02-28] MEDS: QUEtiapine 100 MG TAB PO SCH (02:04)
[2023-02-28] MEDS: LEVOTHYROXINE 125 MCG TAB PO SCH (07:19)
[2023-02-28 07:39] LABS: INR 1.6 (<1.2); Prothrombin Time 16.3 sec (9.0-12.0)
[2023-02-28] MEDS: CHOLECALCIFEROL 25 MCG (1000 IU) TABLET PO SCH (08:07)
[2023-02-28] MEDS: ASCORBIC ACID 500 MG TAB PO SCH (08:07)
[2023-02-28] MEDS: ENOXAPARIN 120 MG/0.8 ML SYRINGE SQ SCH (08:07)
[2023-02-28] MEDS: ATORVASTATIN 40 MG TAB PO SCH (08:07)
[2023-02-28] MEDS: VALPROIC ACID ORAL SOLN 250 MG/5 ML CUP PO SCH (08:07)
[2023-02-28 08:12] VITALS: BP 137/91; PULSE 100; TEMP 97
[2023-02-28] MEDS ORDERED: fluPHENAZine DECANOATE 25 MG/ML 5ML MDV IM ONE (10:00)
--- NOTE | 2023-02-28 11:46 | P.DS ---
Providers Date of admission: 02/22/23 21:10 Expected date of discharge: 02/28/23 Attending physician: Gerardo Kirkpatrick MD Consults: 02/21/23 20:49 Consult Physician Urgent Consulting Provider: Vinh Victoria Consult Reason/Comments: Decreased responsiveness Do you want consulting provider notified?: Yes 02/23/23 00:45 Consult Physician Routine Consulting Provider: Silver Feliz Consult Reason/Comments: H&P and medical follow up Do you want consulting provider notified?: Yes, Notify in am Primary care physician: Stated None - Discharge Diagnosis(es) (1) Schizoaffective disorder, bipolar type Current Visit: Yes Status: Acute Priority: High (2) 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 She was then transferred to the ER after she was found unresponsive on the floor. In the ER she was medically cleared and she has been readmitted to the Patient states "I have been here for almost 40 days" after she got into an altercation with the police. She then makes nonsensical statements, and states that she does not need to be in the hospital. She denies suicidal thoughts, ho micidal thoughts, hallucinations. Per nursing staff, patient has been more bizarre since coming back to the mental health unit from the ER. She has been pretending like she is the caregiver off another patient Per H and P from hospitalization: Patient presented to the hospital on 01/28/2023 by EMS for psychiatric evaluation. Reportedly, the patient attempted to knock on a neighbor's door who then contacted the Office Automation Clerk's Department. She reports that the Office Automation Clerk brought her to the hospital for psychiatric evaluation. The patient was most recently admitted onto our psychiatric unit on 01/16/2023 and was subsequently transferred to the medical floor on 01/21/2023 due to concerns for uncontrolled PT/INR on Coumadin and hyponatremia. A psychiatric consult was placed and the patient was evaluated on 01/29/2023 however appeared stable at the time. During that evaluation, the patient's Tegretol was held due to concerns for hyponatremia and she was continued on Geodon. However, the patient regressed back into a manic episode and psychiatry was reconsult to evaluate the patient on 01/30/2023. This time however, the patient was endorsing significant grandiose delusions including the belief that she was . Due to this belief, the patient began refusing necessary medical medications including her Coumadin. The patient was subsequently petitioned and certified and admitted onto the psychiatric unit. Upon evaluation on the psychiatric unit, the patient appeared to be grossly manic. She was often singing to herself and saying that God was speaking to her. She appeared to be responding to internal stimuli. She was also refusing her medications intermittently stating that she would not take any medications if he would harm her baby. Patient has a history of schizoaffective disorder, bipolar type. The patient has trialed numerous medications including Seroquel, Risperdal, Depakote, Thorazine, Prolixin decanoate, Zyprexa, Haldol, and Effexor. She was last disch arged from our psychiatric unit last month on a regimen of Geodon and Tegretol on 01/21/2023. She has had numerous psychiatric hospitalizations. Patient denies any psychiatric outpatient follow-up. Patient denies any history of suicide attempts in the past. Hospital course: Upon admission to the unit patient was initially irritable, grandiose, religiously preoccupied, and had very poor insight and judgment. A demand for mental health court order was filed due to the patient's severe mental illness and her history of nonadherence with treatment. She was initially started on a regimen of Depakene liquid and her Geodon was discontinued with a transition to Prolixin in order to place her on a long-acting injectable Prolixin Decanoate due to her history of nonadherence with treatment. Over the course of the hospitalization, the patient had intermittent episodes of irritability and psychosis. Her Prolixin was gradually titrated and the patient initially displayed a positive response with this medication and addressing her target symptoms of psychosis and don. She was transitioned to Prolixin Decanoate 50 mg IM which was administered on 02/08/2023. However, the patient continued to have intermittent episodes of psychosis and paranoia. There would be times where she would not sleep at all. Furthermore, the patient displayed significant concerns for psychogenic polydipsia and she was often drinking a significant water leading to hyponatremia and she was placed on fluid restrictions. Seroquel was added to her regimen in order to address her treatment resistant psychotic and manic symptoms. Her Depakote level was found to be within the therapeutic range and was at the upper limit of normal. On this regimen of Prolixin Decanoate, oral Prolixin, Seroquel, and Depakote, the patient began displaying stability in mood and thought. Appropriate safety planning including setting the patient up with [facility] was performed prior to discharge. The patient was also monitored by the medical team for a history and physical examination. She was managed with coumadin for anticoagulation. The patient was initially going to be discharged on 02/19/2023 however the discharge was canceled as the patient was very delusional and there was concern that the patient was facing eviction from her apartment. There was consideration for having the patient placed in a skilled nursing. However, the patient's medications were adjusted and the patient became much more linear and logical conversation. Some of the patients medications were tapered due to concern for over medication (depakote). Oral prolixin was restarted. Oral prolixin was decreased prior to discharge as the patient received another dose of prolixin decanoate. The ACT team discussed with her landlord their concerns. The patient is reported to still have her apartment. The difference being that this time, the patient is medicated compared to last time. We attempted discharge again on 02/21/2023 however due to finances the patient's housing was not secured therefore discharge was held. Nurse notes from the night of 02/21/2023: "Pt was found on the floor on her room, she had a pillow under her head, she was holding her bible, but when staff tried to talk with her she was unresponsive. The MHT called the RN to the room, pt was not responding to verbal directions, when lifted arm above her head it dropped on her face, she did not respond to sternal rub. V/S were 165/74 92 20 pulse ox 100%, CBG was done and was 100. Called A team, they were here to assess, started an Pivl in Right AC, V/S 197/91 94, The A team escorted patient to the ER for continuation of care. " The patient was readmitted on to the psychiatric unit when she was medically cleared. The patient was restarted on her medications of Prolixin, Seroquel, Klonopin, and Depakote. Her oral Prolixin was held however the patient began to experience worsening psychotic symptoms and became more religiously preoccupied and intrusive with staff and peers. She was restarted on her oral Prolixin and the patient displayed significant improvement with this. She was then transitioned to Prolixin Decanoate which would be administered weekly instead of every other week. During this time, appropriate safety planning and discharge planning. The patient is to continue treatment with the ACT team and the patient would be going to a skilled nursing in the interim. On the day of discharge, the patient is not reporting any suicidal or homicidal ideation, intention, and/or plan. She is not reporting any auditory or visual hallucinations. She is denying any paranoia or other delusions to this provider. She has been adherent with her medications and is not endorsing any significant side effects. An EKG was performed prior to her administration of Prolixin Decanoate 50 mg IM on 02/28/2023. EKG revealed normal sinus rhythm with a QTc of 457 ms. T the patient is not reporting any medical issues or concerns. She denies any chest pain, shortness of breath, palpitations, muscle tightness or weakness, or involuntary muscle movements. The patient was counseled at length that she is currently court ordered for treatment and has to be adherent with her medications and follow-up. As the patient no longer met criteria for continued inpatient psychiatric hospitalization, she was subsequently discharged to the skilled nursing. Mental status exam: General Appearance: Patient appears to be stated age is alert, pleasant, and cooperative. Patient is in no acute distress and has fair hygiene and grooming Behavior: Patient is calmly seated without any agitated behavior. Speech: Patient's speech is fluent and nonpressured. Mood/Affect: Patient reports their mood is "ready to be discharged", affect is congruent and euthymic. Suicidality/Homicidality: Patient denies having any suicidal or homicidal ideation intent or plan. Perceptions: Patient denies any auditory or visual hallucinations. Though content/process: There is no evidence of any delusional thought content and thought process is linear and goal-directed. She is future oriented Memory and concentration: AOX3, grossly intact for the purposes of this session. Can spell "WORLD" backwards correctly. Judgment and insight: Improved with guarded prognosis Impression: Schizoaffective disorder, bipolar type Psychogenic polydipsia Hyponatremia, chronic Plan: -Continue with discharge today as patient has improved and stabilized psychiatrically and is not currently an imminent threat to herself and/or others. Patient will remain at chronically elevated risk due to the severity and treatment resistance of her mental illness. -Continue medications: Prolixin Decanoate 50 mg IM with last administration on 02/28/23 - medication recommended to be given weekly. Seroquel 150 mg at bedtime for psychosis. Continue Depakene 500 mg in the morning and 750 mg at bedtime. Klonopin 0.5 mg by mouth twice a day for irritability/anxiety -Patient was counseled on the need for medication compliance and appropriate follow-up at mental health and also primary care for medical issues. Patient verbalized understanding and agreed. -Social work to arrange for and conduct family meeting to ensure safety upon discharge and answer any questions/concerns. Social work also to arrange for patients follow up appointments with [facility] for psychiatric care along with follow up with primary care provider. -Patient counseled on abstaining from recreational drugs and marijuana and alcohol. Was informed/educated on the adverse effects on their physical and mental health. Patient verbally agreed and understood. -Patient was instructed to return to the hospital or seek immediate medical care if their psychiatric or medical symptoms do worsen or reoccur. -Psychoeducation and supportive therapy provided to patient. Risks and benefits of pharmacological treatment versus the risks and benefits of nontreatment weight and discussed. Informed consent discussion held. Common side effects of psychotropics discussed such as, but not limited to headache, GI disturbance, sexual dysfunction, movement disorders, sedation, and orthostatic hypotension. Life threatening and blackbox warnings of prescribed medications also discussed. Potential risks of operating a vehicle or heavy machinery discussed with patient at length. Advised on importance of compliance and a reliable and responsible manner. Patient advised to review FDA consumer labeling of all medications prior to taking. Patient verbalized understanding of potential risks, and agrees with current treatment plan. Patient advised to medically contact physician/emergency personnel if any acute changes in condition occur. Vital Signs Temp 97.0 F L 02/28/23 08:11 Pulse 100 04/06/23 08:11 Resp 16 02/28/23 08:11 BP 137/91 02/28/23 08:11 Pulse Ox 99 02/27/23 06:52 FiO2 Intake & Output 02/27/23 02/28/23 02/28/23 18:59 06:59 18:59 Weight 83.7 kg Laboratory Results WBC 5.1 k/uL (3.8-10.6) 02/21/23 19:11 RBC 3.77 m/uL (3.80-5.40) L 02/21/23 19:11 Hgb 11.4 gm/dL (11.4-16.0) 02/21/23 19:11 Hct 31.1 % (34.0-46.0) L 02/21/23 19:11 MCV 82.6 fL (80.0-100.0) 02/21/23 19:11 MCH 30.3 pg (25.0-35.0) 02/21/23 19:11 MCHC 36.7 g/dL (31.0-37.0) 02/21/23 19:11 RDW 13.0 % (11.5-15.5) 02/21/23 19:11 Plt Count 253 k/uL (150-450) 02/21/23 19:11 MPV 6.8 02/21/23 19:11 Neutrophils % 75 % 02/21/23 19:11 Lymphocytes % 14 % 02/21/23 19:11 Monocytes % 6 % 02/21/23 19:11 Eosinophils % 1 % 02/21/23 19:11 Basophils % 1 % 02/21/23 19:11 Neutrophils # 3.8 k/uL (1.3-7.7) 02/21/23 19:11 Lymphocytes # 0.7 k/uL (1.0-4.8) L 02/21/23 19:11 Monocytes # 0.3 k/uL (0-1.0) 02/21/23 19:11 Eosinophils # 0.1 k/uL (0-0.7) 02/21/23 19:11 Basophils # 0.0 k/uL (0-0.2) 02/21/23 19:11 Hyperchromasia Slight 02/21/23 19:11 PT 16.3 sec (9.0-12.0) H 02/28/23 07:09 INR 1.6 (<1.2) H 02/28/23 07:09 APTT 29.6 sec (22.0-30.0) 02/21/23 19:11 Sodium 124 mmol/L (137-145) L 02/26/23 12:39 Potassium 4.8 mmol/L (3.5-5.1) 02/26/23 12:39 Chloride 89 mmol/L (98-107) L 02/26/23 12:39 Carbon Dioxide 28 mmol/L (22-30) 02/26/23 12:39 Anion Gap 7 mmol/L 02/26/23 12:39 BUN 14 mg/dL (7-17) 02/26/23 12:39 Creatinine 0.69 mg/dL (0.52-1.04) 02/26/23 12:39 Est GFR (CKD-EPI)AfAm >90 (>60 ml/min/1.73 sqM) 02/26/23 12:39 Est GFR (CKD-EPI)NonAf >90 (>60 ml/min/1.73 sqM) 02/26/23 12:39 Glucose 94 mg/dL (74-99) 02/26/23 12:39 POC Glucose (mg/dL) 112 mg/dL (70-110) H 02/24/23 12:40 POC Glu Field Assistant Linh Otero 02/24/23 12:40 Calcium 8.4 mg/dL (8.4-10.2) 02/26/23 12:39 Total Bilirubin 0.6 mg/dL (0.2-1.3) 02/21/23 19:11 AST 33 U/L (14-36) 02/21/23 19:11 ALT 32 U/L (4-34) 02/21/23 19:11 Alkaline Phosphatase 67 U/L (38-126) 02/21/23 19:11 Troponin I <0.012 ng/mL (0.000-0.034) 02/21/23 19:11 Total Protein 6.5 g/dL (6.3-8.2) 02/21/23 19:11 Albumin 4.1 g/dL (3.5-5.0) 02/21/23 19:11 Urine Opiates Screen Not Detected (NotDetected) 02/21/23 19:11 Ur Oxycodone Screen Not Detected (NotDetected) 02/21/23 19:11 Urine Methadone Screen Not Detected (NotDetected) 02/21/23 19:11 Ur Propoxyphene Screen Not Detected (NotDetected) 02/21/23 19:11 Ur Barbiturates Screen Not Detected (NotDetected) 02/21/23 19:11 U Tricyclic Antidepress Not Detected (NotDetected) 02/21/23 19:11 Ur Phencyclidine Scrn Not Detected (NotDetected) 02/21/23 19:11 Ur Amphetamines Screen Not Detected (NotDetected) 02/21/23 19:11 U Methamphetamines Scrn Not Detected (NotDetected) 02/21/23 19:11 U Benzodiazepines Scrn Not Detected (NotDetected) 02/21/23 19:11 Urine Cocaine Screen Not Detected (NotDetected) 02/21/23 19:11 U Marijuana (THC) Screen Not Detected (NotDetected) 02/21/23 19:11 Coronavirus (PCR) Not Detected (Not Detectd) 02/22/23 18:42 Allergies Allergy/AdvReac Type Severity Reaction Status Date / Time codeine AdvReac UPSET Verified 02/21/23 20:05 STOMACH Patient Condition at Discharge: Stable Plan - Discharge Summary Discharge Rx Participant: No New Discharge Prescriptions: New QUEtiapine [SEROquel] 150 mg PO HS 30 Days #45 tab fluPHENAZine decanoate [Prolixin Decanoate] 50 mg IM Q7DAYS #1 ml Continue Loratadine [Claritin] 10 mg PO DAILY tab Warfarin [Coumadin] 5 mg PO SUTUWETHSA #10 tab Warfarin [Coumadin] 7.5 mg PO MOFR #4 tab Valproic Acid Oral Soln [Depakene Syrup] 750 mg PO HS 30 Days #45 ml clonazePAM [KlonoPIN] 0.5 mg PO BID 30 Days #60 tab Atorvastatin [Lipitor] 80 mg PO DAILY 30 Days #30 tab Cholecalciferol [Vitamin D3 (25 Mcg = 1000 Iu)] 50 mcg PO DAILY 30 Days #60 tab Valproic Acid Oral Soln [Depakene Syrup] 500 mg PO DAILY 30 Days #300 ml Ascorbic Acid [Vitamin C] 500 mg PO DAILY 30 Days #30 tab Changed Levothyroxine Sodium [Synthroid] 125 mcg PO DAILY@30 30 Days #30 tab Discontinued Metoprolol Succinate (ER) [Toprol XL] 50 mg PO DAILY fluPHENAZine [Prolixin 1MG] 1 mg PO BID@0900,1600 30 Days #60 tablet lisinopriL [Zestril] 20 mg PO DAILY tab QUEtiapine [SEROquel] 100 mg PO HS 30 Days #30 tab fluPHENAZine decanoate [Prolixin Decanoate] 50 mg IM [id number] #1 each Discharge Medication List Loratadine [Claritin] 10 mg PO DAILY tab 01/15/23 [Rx] Ascorbic Acid [Vitamin C] 500 mg PO DAILY 30 Days #30 tab 02/28/23 [Rx] Atorvastatin [Lipitor] 80 mg PO DAILY 30 Days #30 tab 02/28/23 [Rx] Cholecalciferol [Vitamin D3 (25 Mcg = 1000 Iu)] 50 mcg PO DAILY 30 Days #60 tab 02/28/23 [Rx] Levothyroxine Sodium [Synthroid] 125 mcg PO DAILY@0630 30 Days #30 tab 02/28/23 [Rx] QUEtiapine [SEROquel] 150 mg PO HS 30 Days #45 tab 02/28/23 [Rx] Valproic Acid Oral Soln [Depakene Syrup] 500 mg PO DAILY 30 Days #300 ml 02/28/23 [Rx] Valproic Acid Oral Soln [Depakene Syrup] 750 mg PO HS 30 Days #45 ml 02/28/23 [Rx] Warfarin [Coumadin] 5 mg PO SUTUWETHSA #10 tab 02/28/23 [Rx] Warfarin [Coumadin] 7.5 mg PO MOFR #4 tab 02/28/23 [Rx] clonazePAM [KlonoPIN] 0.5 mg PO BID 30 Days #60 tab 02/28/23 [Rx] fluPHENAZine decanoate [Prolixin Decanoate] 50 mg IM Q7DAYS #1 ml 02/28/23 [Rx] Follow up Appointment(s)/Referral(s): [facility] [Outside] - 03/07/23 11:00 am (03/07/2023 11:00AM - 11:30AM [facility] [NON-STAFF] - 1 Week Patient Instructions/Handouts: Bipolar Disorder (DC), Schizoaffective Disorder (DC), Psychotic Disorder (DC) Activity/Diet/Wound Care/Special Instructions: Avoid the use of street drugs and alcohol. Take all medications as prescribed. When you are in need of refills on your medications, please contact your medical provider and/or outpatient psychiatrist to have this done. Please go to [facility] outpatient appointments for aftercare treatment. If symptoms return or become worse, call the crisis line at and/or go to the nearest emergency room for evaluation. Discharge Disposition: HOME SELF-CARE
[2023-02-28] MEDS ORDERED: WARFARIN 7.5 MG TAB PO ONE (18:00)
== END 2023-02-28 13:10 | disposition home or self-care (01) | DRG 885 ==
LOC: EC 18:31 → 4SSUR 20:49 → UNDOADMIN 20:49 → 4SSUR 02-22 02:09 → 5NMEDONC 02-22 13:54 → 4SSUR 02-22 13:54 → 3MHU 02-22 21:10
PROVIDERS: ADMIT Psychiatry & Neurology Psychiatry; ATTEND Psychiatry & Neurology Psychiatry
DX: F25.0 Schizoaffective disorder, bipolar type (principal); E87.1 Hypo-osmolality and hyponatremia; N17.9 Acute kidney failure, unspecified; R63.1 Polydipsia; E78.5 Hyperlipidemia, unspecified; Z20.822 Contact with and (suspected) exposure to COVID-19; E11.40 Type 2 diabetes mellitus with diabetic neuropathy, unspecified; I10 Essential (primary) hypertension; F43.10 Post-traumatic stress disorder, unspecified; J44.9 Chronic obstructive pulmonary disease, unspecified; Z96.652 Presence of left artificial knee joint; Z79.01 Long term (current) use of anticoagulants; Z79.4 Long term (current) use of insulin; Z79.890 Hormone replacement therapy; Z79.899 Other long term (current) drug therapy; Z95.2 Presence of prosthetic heart valve; Z88.5 Allergy status to narcotic agent; Z56.0 Unemployment, unspecified; Z81.8 Family history of other mental and behavioral disorders
CPT/HCPCS: 36415; 70450; 80048; 80053; 80306; 84484; 85025; 85610; 85730; 87635; 93005; 96361; 96374; 99285

== ENCOUNTER → 2023-04-11 | Outpatient (CLI) | payer MEDICARE, OTHER ==
--- NOTE | 2023-04-12 18:32 | MM ---
Reason for Exam: Screening (asymptomatic). Last mammogram was performed 11 year(s) and 6 month(s) ago. Patient History: Menarche at age 15. First Full-Term at age 42. Late child-bearing (after 30). Paternal aunt had breast cancer. Risk Values: Teresa 5 year model risk: 2.0%. NCI Lifetime model risk: 10.0%. Prior Study Comparison: 06/02/2009 Screening Mammogram, [facility]. 09/12/2009 Screening Mammogram, [facility]. 10/04/2011 Bilateral Diagnostic Mammogram, [facility]. Tissue Density: The breast tissue is heterogeneously dense. This may lower the sensitivity of mammography. Findings: Analyzed By CAD. Scattered benign cyst, secretory, and round/punctate calcifications are present on both sides. Some areas of asymmetric density are present but show no persistent abnormality on 3-D images. No significant mass or other discrete abnormality is seen. Overall Assessment: Benign, BI-RAD 2 Management: Screening Mammogram of both breasts in 1 year. . Patient should continue monthly self-breast exams. A clinical breast exam by your physician is recommended on an annual basis. This exam should not preclude additional follow-up of suspicious palpable abnormalities. Note on Teresa scores and lifetime risk: 1. A Teresa score greater than 3% is considered moderate risk. If this is the case, consider specialist referral to assess eligibility for a risk reducing agent. 2. If overall lifetime risk for the development of breast cancer is 20% or higher, the patient may qualify for future screening with alternating mammogram and breast MRI. Electronically signed and approved by: Baljinder Santana M.D. Radiologist
== END | disposition home or self-care (01) ==
LOC: EEVIPCON 16:20 → RADMAMWWP 16:23
PROVIDERS: ATTEND Family Medicine
DX: Z12.31 Encounter for screening mammogram for malignant neoplasm of breast (principal); Z80.3 Family history of malignant neoplasm of breast
CPT/HCPCS: 77063; 77067

== ENCOUNTER → 2023-05-16 | Outpatient (CLI) | payer MEDICARE, OTHER ==
[2023-05-16 15:46] LABS: ALT 28 U/L (8-44); AST 24 U/L (13-35); Albumin 3.6 d/dL (3.8-4.9); Alkaline Phosphatase 85 U/L (41-126); BUN/Creat Ratio 24.17 Ratio (12.00-20.00); Blood Urea Nitrogen 14.5 mg/dL (9.0-27.0); Calcium 9.2 mg/dL (8.7-10.3); Carbon Dioxide 26.6 mmol/L (21.6-31.8); Chloride 98 mmol/L (96-109); Chol/HDL Ratio 3.88 Ratio; Glucose 162 mg/dL (70-110); LDL Cholesterol,Calculated 109.8 mg/dL (0.0-131.0); Potassium 4.8 mmol/L (3.5-5.5); Sodium 136 mmol/L (135-145); Total Bilirubin 0.3 mg/dL (0.3-1.2); Total Protein 5.6 d/dL (6.2-8.2)
== END | disposition home or self-care (01) ==
LOC: LABWHC1 09:10
PROVIDERS: ATTEND Nurse Practitioner Adult Health
DX: I10 Essential (primary) hypertension (principal); E78.2 Mixed hyperlipidemia
CPT/HCPCS: 36415; 80053; 80061

== ENCOUNTER 2023-07-24 14:32 | Emergency (ER) | payer MEDICARE, OTHER ==
[2023-07-24] MEDS ORDERED: SODIUM CHLORIDE 0.9% 1,000 ML IV ONE (15:35)
[2023-07-24 16:00] VITALS: RESP 18
[2023-07-24 16:25] LABS: Basophils % (A) 0 %; Eosinophils # (A) 0.1 k/uL (0-0.7); Eosinophils % (A) 1 %; HCT 31.9 % (34.0-46.0); HGB 11.7 gm/dL (11.4-16.0); Lymphocytes # (A) 0.7 k/uL (1.0-4.8); Lymphocytes % (A) 11 %; MCH 31.1 pg (25.0-35.0); MCHC 36.6 g/dL (31.0-37.0); MCV 84.8 fL (80.0-100.0); Mean Platelet Volume 7.1; Monocytes # (A) 0.4 k/uL (0-1.0); Monocytes % (A) 5 %; Neutrophils # (A) 5.4 k/uL (1.3-7.7); Neutrophils % (A) 81 %; Platelet Count 280 k/uL (150-450); RBC 3.76 m/uL (3.80-5.40); WBC 6.7 k/uL (3.8-10.6)
[2023-07-24 16:38] LABS: INR 3.3 (<1.2); Prothrombin Time 32.4 sec (9.0-12.0)
[2023-07-24 16:52] LABS: Appearance,Urine Clear (Clear); Bilirubin,Urine Negative (Negative); Blood,Urine Negative (Negative); Color,Urine Colorless; Glucose,Urine (UA) 1+ (Negative); Ketones,Urine Negative (Negative); Leukocyte Esterase,Urine Negative (Negative); Nitrite,Urine Negative (Negative); PH, Urine 6.5 (5.0-8.0); Protein,Urine 2+ (Negative); RBC,Urine <1 /hpf (0-5); Squamous Epithelial Cell,Urine <1 /hpf (0-4); Urobilinogen,Urine <2.0 mg/dL (<2.0); WBC,Urine 7 /hpf (0-5)
[2023-07-24 17:04] LABS: ALT 35 U/L (4-34); AST 32 U/L (14-36); African American GFR (CKD) 62 (>60 ml/min/1.73 sqM); Albumin 3.7 g/dL (3.5-5.0); Alkaline Phosphatase 78 U/L (38-126); Anion Gap 6 mmol/L; Blood Urea Nitrogen 28 mg/dL (7-17); Carbon Dioxide 25 mmol/L (22-30); Chloride 100 mmol/L (98-107); Glucose 202 mg/dL (74-99); Lipase 257 U/L (23-300); Lithium 1.2 mmol/L; Non-African American GFR(CKD) 54 (>60 ml/min/1.73 sqM); Potassium 4.3 mmol/L (3.5-5.1); Sodium 131 mmol/L (137-145); Total Bilirubin 0.8 mg/dL (0.2-1.3); Total Protein 6.3 g/dL (6.3-8.2)
[2023-07-24 17:55] VITALS: PULSE 75
[2023-07-24 18:27] VITALS: BP 179/96; TEMP 98.6
--- NOTE | 2023-07-24 18:40 | CT ---
EXAMINATION TYPE: CT abdomen pelvis w con DATE OF EXAM: 07/24/2023 COMPARISON: NONE HISTORY: 63-year-old female epigastric pain and left buttock pain TECHNIQUE: Contiguous axial scanning of the abdomen and pelvis following administration of 80 ml Isov ue 300 IV contrast. Delayed images through the kidneys and coronal/sagittal reconstructions performe d. CT DLP: 1565.3 mGycm Automated exposure control for dose reduction was used. FINDINGS: Median sternotomy wires. Heart is borderline enlarged. Strandy atelectasis lower lungs. Tiny hiatal hernia. Liver enlarged at 21.3 cm. Spleen mildly enlarged at 14.2 cm. Portal venous system is patent. No bili michelle ductal dilatation. Gallbladder, adrenal glands, kidneys, and pancreas within normal limits. No dilated small bowel, free fluid, or free air. No mesenteric or retroperitoneal lymphadenopathy. Mi ld stool burden. No pericolonic inflammatory change. Mild circumferential bladder wall thickening. Uterus anteverted. Both ovaries are visualized. No abno rmal fluid collection in the pelvis or pelvic lymphadenopathy. Mild degenerative spurring at the hip joint. Facet arthropathy lower lumbar spine. Anterior endplate spondylosis lower thoracic spine. Facet arthropathy lower lumbar spine. IMPRESSION: 1. HEPATOSPLENOMEGALY (LIVER 21.3 CM SPLEEN 14.2 CM ). CLINICALLY CORRELATE. 2. CIRCUMFERENTIAL BLADDER WALL THICKENING MAY BE CHRONIC FOR THE PATIENT. CORRELATE TO EXCLUDE CYSTI TIS. 3. TINY HIATAL HERNIA.
--- NOTE | 2023-07-24 18:47 | ED ---
Abdominal Pain HPI - General Chief Complaint: Abdominal Pain Stated Complaint: pain in both sides Time Seen by Provider: 07/24/23 14:43 Source: patient Mode of arrival: wheelchair Limitations: no limitations - History of Present Illness Initial Comments: 63-year-old female with past medical history of diabetes, thyroid disorder, aortic valve replacement on Coumadin who presents to the emergency department reporting bilateral lower abdominal pain. States that her symptoms started today. She describes it as a cramping sensation which radiates to her anterior abdomen. Patient arrives extremely anxious stating "I know something is wrong". Denies any issues with her bowel habits to include diarrhea, constipation, black or bloody stools. Denies any urinary complaints to include dysuria, hematuria or difficulty voiding. No fevers. No ripping or tearing station to her back. She denies any numbness or tingling into her lower extremities. No history of similar in the past. Patient states she feels bloated as if she is . 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, precipitating or modifying factors - Related Data Previous Rx's Medication Instructions Recorded Loratadine [Claritin] 10 mg PO DAILY tab 01/15/23 Ascorbic Acid [Vitamin C] 500 mg PO DAILY 30 Days #30 tab 02/28/23 Atorvastatin [Lipitor] 80 mg PO DAILY 30 Days #30 tab 02/28/23 Cholecalciferol [Vitamin D3 (25 50 mcg PO DAILY 30 Days #60 tab 02/28/23 Mcg = 1000 Iu)] Levothyroxine Sodium [Synthroid] 125 mcg PO DAILY@0630 30 Days #30 02/28/23 tab QUEtiapine [SEROquel] 150 mg PO HS 30 Days #45 tab 02/28/23 Valproic Acid Oral Soln [Depakene 500 mg PO DAILY 30 Days #300 ml 02/28/23 Syrup] Valproic Acid Oral Soln [Depakene 750 mg PO HS 30 Days #45 ml 02/28/23 Syrup] Warfarin [Coumadin] 5 mg PO SUTUWETHSA #10 tab 02/28/23 Warfarin [Coumadin] 7.5 mg PO MOFR #4 tab 02/28/23 clonazePAM [KlonoPIN] 0.5 mg PO BID 30 Days #60 tab 02/28/23 fluPHENAZine decanoate [Prolixin 50 mg IM Q7DAYS #1 ml 02/28/23 Decanoate] Allergies Allergy/AdvReac Type Severity Reaction Status Date / Time codeine AdvReac UPSET Verified 07/24/23 14:36 STOMACH Review of Systems ROS Statement: Those systems with pertinent positive or pertinent negative responses have been documented in the HPI. ROS Other: All systems not noted in ROS Statement are negative. Past Medical History Past Medical History: Diabetes Mellitus, GERD/Reflux, Hyperlipidemia, Hypertension, Pneumonia, Sleep Apnea/CPAP/BIPAP, Thyroid Disorder Additional Past Medical History / Comment(s): IDDM type II, neuropathy bilateral feet, rheumatic fever at age 11yrs/scar tissue on valve, aortic valve replacement (mechanical), pt states she had a blood clot around aortic valve prior to paul rgery, POLLO but does not tolerate Cpap, constipation, L ovarian cyst, hypothyroid., states infection left knee. History of Any Multi-Drug Resistant Organisms: None Reported, MRSA Date of last positivie culture/infection: None MDRO Source:: None Past Surgical History: Appendectomy, Cardiac Valve Replacement, Section, Joint Replacement, Orthopedic Surgery Additional Past Surgical History / Comment(s): BLANCA, aortic valve replacement (mechanical), L total knee arthroplasty, L foot bunionectomy, EGDs, colonoscopy. Past Anesthesia/Blood Transfusion Reactions: Previous Problems w/ Anesthesia Additional Past Anesthesia/Blood Transfusion Reaction / Comment(s): Stopped breathing when a EGD was done Past Psychological History: Anxiety, Bipolar, Depression, PTSD Smoking Status: Never smoker, Unknown if ever smoked Past Alcohol Use History: None Reported Past Drug Use History: None Reported - Past Family History Father Additional Family Medical History / Comment(s): Bipolar and ETOH abuse. Mother Additional Family Medical History / Comment(s): ETOH abuse. General Exam Limitations: no limitations General appearance: alert, in no apparent distress Head exam: Present: atraumatic, normocephalic, normal inspection Eye exam: Present: normal appearance, PERRL, EOMI. Absent: scleral icterus, conjunctival injection, periorbital swelling ENT exam: Present: normal exam, mucous membranes moist Neck exam: Present: normal inspection. Absent: tenderness, meningismus, lymphadenopathy Respiratory exam: Present: normal lung sounds bilaterally. Absent: respiratory distress, wheezes, rales, rhonchi, stridor Cardiovascular Exam: Present: regular rate, normal rhythm, normal heart sounds. Absent: systolic murmur, diastolic murmur, rubs, gallop, clicks GI/Abdominal exam: Present: soft, tenderness (Left and right flanks), normal bowel sounds. Absent: distended, guarding, rebound, rigid Extremities exam: Present: normal inspection, full ROM, normal capillary refill. Absent: tenderness, pedal edema, joint swelling, calf tenderness Back exam: Present: normal inspection Neurological exam: Present: alert, oriented X3, CN II-XII intact Psychiatric exam: Present: normal affect, normal mood Skin exam: Present: warm, dry, intact, normal color. Absent: rash Course Vital Signs 07/24/23 07/24/23 07/24/23 14:34 15:36 16:00 Temperature 98.0 F Pulse Rate 78 79 74 Respiratory 16 18 18 Rate Blood Pressure 133/81 169/93 146/77 O2 Sat by Pulse 98 96 97 Oximetry 07/24/23 07/24/23 17:50 18:24 Temperature 98.6 F Pulse Rate 75 75 Respiratory 18 18 Rate Blood Pressure 164/92 179/96 O2 Sat by Pulse 98 97 Oximetry Medical Decision Making - Medical Decision Making Was pt. sent in by a medical professional or institution (, PA, LICENSED NURSE PRACTITIONER, urgent care, hospital, or assisted...) When possible be specific @ -No Did you speak to anyone other than the patient for history (EMS, parent, family, police, friend...)? What history was obtained from this source @ -No Did you review nursing and triage notes (agree or disagree)? Why? @ -I reviewed and agree with nursing and triage notes Were old charts reviewed (outside hosp., previous admission, EMS record, old EKG, old radiological studies, urgent care reports/EKG's, assisted records)? Report findings @ -No old charts were reviewed Differential Diagnosis (chest pain, altered mental status, abdominal pain women, abdominal pain men, vaginal bleeding, weakness, fever, dyspnea, syncope, headache, dizziness, GI bleed, back pain, seizure, CVA, palpatations, mental health, musculoskeletal)? @ -Differential Abdominal Pain Women: Appendicitis, Cholecystitis, diverticulosis, ischemic bowel, pancreatitis, hepatitis, UTI, gastroenteritis, AAA, incarcerated hernia, bowel obstruction, constipation, inflammatory bowel, hepatitis, peptic ulcer disease, splenic infarction, perforated viscus, vulvitis, ovarian torsion, PID, kidney stone, placenta abruption, this is not meant to be an all-inclusive list EKG interpreted by me (3pts min.). @ -Yes and demonstrate sinus rhythm rate of 72. AK interval 192. QRS 86. QTC of 418. No acute ST segment elevation or depressions X-rays interpreted by me (1pt min.). @ -None done CT interpreted by me (1pt min.). @ -Yes and demonstrates no acute intra-abdominal process U/S interpreted by me (1pt. min.). @ -None done What testing was considered but not performed or refused? (CT, X-rays, U/S, labs)? Why? @ -None What meds were considered but not given or refused? Why? @ -None Did you discuss the management of the patient with other professionals (professionals i.e. , PA, LICENSED NURSE PRACTITIONER, lab, RT, psych nurse, social media developer, information systems manager, teacher, interface control officer, medical case worker)? Give summary @ -No Was smoking cessation discussed for >3mins.? @ -No Was critical care preformed (if so, how long)? @ -No Were there social determinants of health that impacted care today? How? (Homelessness, low income, unemployed, alcoholism, drug addiction, transportation, low edu. Level, literacy, decrease access to med. care, intermediate, rehab)? @ -No Was there de-escalation of care discussed even if they declined (Discuss DNR or withdrawal of care, Hospice)? DNR status @ -No What co-morbidities impacted this encounter? (DM, HTN, Smoking, COPD, CAD, Cancer, CVA, ARF, Chemo, Hep., AIDS, mental health diagnosis, sleep apnea, mor bid obesity)? @ -Schizoaffective disorder, bipolar disorder, aortic valve placement on Coumadin Was patient admitted / discharged? Hospital course, mention meds given and route, prescriptions, significant lab abnormalities, going to OR and other pertinent info. @ -Arrival patient was placed into room 17. A thorough history and physical exam was performed. Patient is extremely tearful concerned that something is wrong. We did obtain IV access. Laboratory studies were conducted. Patient was given pain medications. She does go over for CT imaging of her abdomen which demonstrates no acute findings. Results are discussed with the patient. Patient will be discharged home at this time and needs to follow up with her primary care doctor for further evaluation. Return to the emergency department for any new or worsening symptoms. Patient was agreeable to this plan and she is discharged in stable condition Undiagnosed new problem with uncertain prognosis? @ -Yes Drug Therapy requiring intensive monitoring for toxicity (Heparin, Nitro, Insulin, Cardizem)? @ -No Were any procedures done? @ -No Diagnosis/symptom? @ -Acute bilateral flank pain Acute, or Chronic, or Acute on Chronic? @ -Acute Uncomplicated (without systemic symptoms) or Complicated (systemic symptoms)? @ -Complicated Side effects of treatment? @ -No Exacerbation, Progression, or Severe Exacerbation? @ -No Poses a threat to life or bodily function? How? (Chest pain, [place], [place], pneumonia, PE, COPD, DKA, ARF, appy, cholecystitis, CVA, Diverticulitis, Homicidal, Suicidal, threat to staff... and all critical care pts) @ -No - Lab Data Result diagrams: 07/24/23 16:01 07/24/23 16:01 Lab Results 07/24/23 07/24/23 07/24/23 Range/Units 16:01 16:01 16:01 WBC 6.7 (3.8-10.6) k/uL RBC 3.76 L (3.80-5.40) m/uL Hgb 11.7 (11.4-16.0) gm/dL Hct 31.9 L (34.0-46.0) % MCV 84.8 (80.0-100.0) fL MCH 31.1 (25.0-35.0) pg MCHC 36.6 (31.0-37.0) g/dL RDW 13.0 (11.5-15.5) % Plt Count 280 (150-450) k/uL MPV 7.1 Neutrophils % 81 % Lymphocytes % 11 % Monocytes % 5 % Eosinophils % 1 % Basophils % 0 % Neutrophils # 5.4 (1.3-7.7) k/uL Lymphocytes # 0.7 L (1.0-4.8) k/uL Monocytes # 0.4 (0-1.0) k/uL Eosinophils # 0.1 (0-0.7) k/uL Basophils # 0.0 (0-0.2) k/uL PT 32.4 H (9.0-12.0) sec INR 3.3 H (<1.2) APTT 39.0 H (22.0-30.0) sec Sodium (137-145) mmol/L Potassium (3.5-5.1) mmol/L Chloride (98-107) mmol/L Carbon Dioxide (22-30) mmol/L Anion Gap mmol/L BUN (7-17) mg/dL Creatinine (0.52-1.04) mg/dL Est GFR (CKD-EPI)AfAm (>60 ml/min/1.73 sqM) Est GFR (CKD-EPI)NonAf (>60 ml/min/1.73 sqM) Glucose (74-99) mg/dL Plasma Lactic Acid Arturo (0.7-2.0) mmol/L Calcium (8.4-10.2) mg/dL Total Bilirubin (0.2-1.3) mg/dL AST (14-36) U/L ALT (4-34) U/L Alkaline Phosphatase (38-126) U/L Troponin I (0.000-0.034) ng/mL Total Protein (6.3-8.2) g/dL Albumin (3.5-5.0) g/dL Lipase (23-300) U/L TSH (0.465-4.680) mIU/L Urine Color Colorless Urine Appearance Clear (Clear) Urine pH 6.5 (5.0-8.0) Ur Specific [place] 1.010 (1.001-1.035) Urine Protein 2+ H (Negative) Urine Glucose (UA) 1+ H (Negative) Urine Ketones Negative (Negative) Urine Blood Negative (Negative) Urine Nitrite Negative (Negative) Urine Bilirubin Negative (Negative) Urine Urobilinogen <2.0 (<2.0) mg/dL Ur Leukocyte Esterase Negative (Negative) Urine RBC <1 (0-5) /hpf Urine WBC 7 H (0-5) /hpf Ur Squamous Epith Cells <1 (0-4) /hpf [place] mmol/L 07/24/23 07/24/23 07/24/23 Range/Units 16:01 16:01 16:01 WBC (3.8-10.6) k/uL RBC (3.80-5.40) m/uL Hgb (11.4-16.0) gm/dL Hct (34.0-46.0) % MCV (80.0-100.0) fL MCH (25.0-35.0) pg MCHC (31.0-37.0) g/dL RDW (11.5-15.5) % Plt Count (150-450) k/uL MPV Neutrophils % % Lymphocytes % % Monocytes % % Eosinophils % % Basophils % % Neutrophils # (1.3-7.7) k/uL Lymphocytes # (1.0-4.8) k/uL Monocytes # (0-1.0) k/uL Eosinophils # (0-0.7) k/uL Basophils # (0-0.2) k/uL PT (9.0-12.0) sec INR (<1.2) APTT (22.0-30.0) sec Sodium 131 L (137-145) mmol/L Potassium 4.3 (3.5-5.1) mmol/L Chloride 100 (98-107) mmol/L Carbon Dioxide 25 (22-30) mmol/L Anion Gap 6 mmol/L BUN 28 H (7-17) mg/dL Creatinine 1.11 H (0.52-1.04) mg/dL Est GFR (CKD-EPI)AfAm 62 (>60 ml/min/1.73 sqM) Est GFR (CKD-EPI)NonAf 54 (>60 ml/min/1.73 sqM) Glucose 202 H (74-99) mg/dL Plasma Lactic Acid Arturo 1.5 (0.7-2.0) mmol/L Calcium 9.0 (8.4-10.2) mg/dL Total Bilirubin 0.8 (0.2-1.3) mg/dL AST 32 (14-36) U/L ALT 35 H (4-34) U/L Alkaline Phosphatase 78 (38-126) U/L Troponin I <0.012 (0.000-0.034) ng/mL Total Protein 6.3 (6.3-8.2) g/dL Albumin 3.7 (3.5-5.0) g/dL Lipase 257 (23-300) U/L TSH 3.590 (0.465-4.680) mIU/L Urine Color Urine Appearance (Clear) Urine pH (5.0-8.0) Ur Specific [place] (1.001-1.035) Urine Protein (Negative) Urine Glucose (UA) (Negative) Urine Ketones (Negative) Urine Blood (Negative) Urine Nitrite (Negative) Urine Bilirubin (Negative) Urine Urobilinogen (<2.0) mg/dL Ur Leukocyte Esterase (Negative) Urine RBC (0-5) /hpf Urine WBC (0-5) /hpf Ur Squamous Epith Cells (0-4) /hpf [place] 1.2 mmol/L Disposition Clinical Impression: Abdominal pain Disposition: HOME SELF-CARE Condition: Stable Instructions (If sedation given, give patient instructions): Abdominal Pain (ED) Additional Instructions: Please follow-up with your primary care doctor and return for any new or worsening symptoms Is patient prescribed a controlled substance at d/c from ED?: No Referrals: Deepali Hess MD [Primary Care Provider] - 1-2 days Time of Disposition: 18:45
[2023-07-24] MEDS ORDERED: KETOROLAC 15 MG/ML 1 ML VIAL IVP STA (19:05)
== END 2023-07-24 19:28 | disposition home or self-care (01) ==
LOC: EC 14:32
DX: K44.9 Diaphragmatic hernia without obstruction or gangrene (principal); I10 Essential (primary) hypertension; E11.9 Type 2 diabetes mellitus without complications; G47.30 Sleep apnea, unspecified; Z88.5 Allergy status to narcotic agent; Z86.59 Personal history of other mental and behavioral disorders; Z90.49 Acquired absence of other specified parts of digestive tract
CPT/HCPCS: 36415; 93005; 80053; 84443; 83605; 83690; 80178; 84484; 85025; 85610; 85730; 81001; 74177; 99285; 96374; 96361; J1885

== ENCOUNTER 2023-08-07 09:10 | Emergency (ER) | payer MEDICARE, OTHER ==
[2023-08-07 09:35] VITALS: PULSE 79; RESP 18
--- NOTE | 2023-08-07 10:10 | ED ---
Abdominal Pain HPI - General Source: patient, RN notes reviewed Mode of arrival: wheelchair Limitations: no limitations <Huy Waldrop - Last Filed: 08/07/23 10:01> <Jennifer Dominguez - Last Filed: 08/07/23 18:55> - General Chief Complaint: Abdominal Pain Stated Complaint: Hernia Time Seen by Provider: 08/07/23 10:01 - History of Present Illness Initial Comments: 63-year-old female presents emergency department went of abdominal pain. Patient states it's centralized abdominal pain around her umbilical hernia. She was recently evaluated for same complaint and CAT scan. Patient states she saw surgeon one year ago for evaluation of this hernia. She states she has diarrhea she has no other complaints. (Huy Waldrop) Quick note reviewed: This is a 63-year-old female with significant past medical history who presents the emergency department with a chief complaint of left-sided upper quadrant abdominal pain. She reports that she thinks is related to her umbilical hernia. She is reporting accompanying abdominal pain, nausea and bright red bowel movements. She reports that she is on Coumadin. She denies any dizziness, lightheadedness, chest pain comes about, fevers, cough, dysuria. She is also complaining of hematuria. She reports that she has been seen by a general surgeon in the past for her hernia however that was 2 years ago. She offers no other specific complaints (Jennifer Dominguez) - Related Data Previous Rx's Medication Instructions Recorded Loratadine [Claritin] 10 mg PO DAILY tab 01/15/23 Ascorbic Acid [Vitamin C] 500 mg PO DAILY 30 Days #30 tab 02/28/23 Atorvastatin [Lipitor] 80 mg PO DAILY 30 Days #30 tab 02/28/23 Cholecalciferol [Vitamin D3 (25 50 mcg PO DAILY 30 Days #60 tab 02/28/23 Mcg = 1000 Iu)] Levothyroxine Sodium [Synthroid] 125 mcg PO DAILY@0630 30 Days #30 02/28/23 tab QUEtiapine [SEROquel] 150 mg PO HS 30 Days #45 tab 02/28/23 Valproic Acid Oral Soln [Depakene 500 mg PO DAILY 30 Days #300 ml 02/28/23 Syrup] Valproic Acid Oral Soln [Depakene 750 mg PO HS 30 Days #45 ml 02/28/23 Syrup] Warfarin [Coumadin] 5 mg PO SUTUWETHSA #10 tab 02/28/23 Warfarin [Coumadin] 7.5 mg PO MOFR #4 tab 02/28/23 clonazePAM [KlonoPIN] 0.5 mg PO BID 30 Days #60 tab 02/28/23 fluPHENAZine decanoate [Prolixin 50 mg IM Q7DAYS #1 ml 02/28/23 Decanoate] Allergies Allergy/AdvReac Type Severity Reaction Status Date / Time codeine AdvReac UPSET Verified 08/07/23 09:35 STOMACH Review of Systems ROS Other: All systems not noted in ROS Statement are negative. <Huy Waldrop - Last Filed: 08/07/23 10:01> ROS Other: All systems not noted in ROS Statement are negative. <Jennifer Dominguez - Last Filed: 08/07/23 18:55> ROS Statement: Those systems with pertinent positive or pertinent negative responses have been documented in the HPI. Past Medical History Past Medical History: Diabetes Mellitus, GERD/Reflux, Hyperlipidemia, H ypertension, Pneumonia, Sleep Apnea/CPAP/BIPAP, Thyroid Disorder Additional Past Medical History / Comment(s): IDDM type II, neuropathy bilateral feet, rheumatic fever at age 11yrs/scar tissue on valve, aortic valve replacement (mechanical), pt states she had a blood clot around aortic valve prior to surgery, POLLO but does not tolerate Cpap, constipation, L ovarian cyst, hyp othyroid., states infection left knee. History of Any Multi-Drug Resistant Organisms: None Reported, MRSA Date of last positivie culture/infection: None MDRO Source:: None Past Surgical History: Appendectomy, Cardiac Valve Replacement, Section, Joint Replacement, Orthopedic Surgery Additional Past Surgical History / Comment(s): BLANCA, aortic valve replacement (mechanical), L total knee arthroplasty, L foot bunionectomy, EGDs, colonoscopy. Past Anesthesia/Blood Transfusion Reactions: Previous Problems w/ Anesthesia Additional Past Anesthesia/Blood Transfusion Reaction / Comment(s): Stopped breathing when a EGD was done Past Psychological History: Anxiety, Bipolar, Depression, PTSD Smoking Status: Never smoker, Unknown if ever smoked Past Alcohol Use History: None Reported Past Drug Use History: None Reported - Past Family History Father Additional Family Medical History / Comment(s): Bipolar and ETOH abuse. Mother Additional Family Medical History / Comment(s): ETOH abuse. <Huy Waldrop - Last Filed: 08/07/23 10:01> General Exam Limitations: no limitations General appearance: alert, in no apparent distress Head exam: Present: atraumatic, normocephalic, normal inspection Cardiovascular Exam: Absent: clicks <Huy Waldrop - Last Filed: 08/07/23 10:01> <Jennifer Dominguez - Last Filed: 08/07/23 18:55> - General Exam Comments Initial Comments: Visual Physical Exam Vital signs reviewed General: Well-appearing, nontoxic, no acute distress. Head: Normocephalic, atraumatic Eyes: PERRLA, EOMI ENT: Airway patent Chest: Nonlabored breathing Skin: No visual rash, normal skin tone Neuro: Alert and oriented 3 Musculoskeletal: No gross abnormalities (Huy Waldrop) General: Alert, in no acute distress Head: atraumatic normocephalic. Eyes PERRL, EOMI intact, mucous membranes moist Respiratory: Lungs clear to auscultation bilaterally Cardiovascular: Rate regular rate and rhythm Abdominal: Soft without guarding or rebound Extremities: Normal inspection with full range of motion and normal capillary refill Neuroogic: alert and oriented 3, CN II-XII intact, able to ambulate with steady gait Skin: warm dry and intact with normal color digital rectal exam performed with Rivka, 5minutes Tech. No gross blood in the rectal vault. (Jennifer Dominguez) Course Vital Signs 08/07/23 08/07/23 09:32 15:15 Temperature 98.1 F 97.7 F Pulse Rate 79 Respiratory 18 18 Rate Blood Pressure 158/92 129/93 O2 Sat by Pulse 98 96 Oximetry Medical Decision Making <Huy Waldrop - Last Filed: 08/07/23 10:01> - Lab Data Result diagrams: 08/07/23 10:36 08/07/23 10:36 <Jennifer Dominguez - Last Filed: 08/07/23 18:55> - Medical Decision Making I performed a quick note portion of this Chart signed Huy Waldrop PA-C (Huy Waldrop) Was pt. sent in by a medical professional or institution (Dr. PA, MEDIA MONITOR, urgent care, hospital, or [facility]...) When possible be specific @ -[No] Did you speak to anyone other than the patient for history (EMS, parent, family, police, friend...)? What history was obtained from this source @ -[No] Did you review nursing and triage notes (agree or disagree)? Why? @ -[I reviewed and agree with nursing and triage notes] Were old charts reviewed (outside hosp., previous admission, EMS record, old EKG, old radiological studies, urgent care reports/EKG's, [facility] records)? Report findings @ -[No old charts were reviewed] Differential Diagnosis (chest pain, altered mental status, abdominal pain women, abdominal pain men, vaginal bleeding, weakness, fever, dyspnea, syncope, headache, dizziness, GI bleed, back pain, seizure, CVA, palpatations, mental health, musculoskeletal)? @ -[not applicable] EKG interpreted by me (3pts min.). @ -[As above] X-rays interpreted by me (1pt min.). @ -[None done] CT interpreted by me (1pt min.). @ -CT does not reveal any evidence of hernia incarceration or acute abdominal process. U/S interpreted by me (1pt. min.). @ -[None done] What testing was considered but not performed or refused? (CT, X-rays, U/S, labs)? Why? @ -[None] What meds were considered but not given or refused? Why? @ -[None] Did you discuss the management of the patient with other professionals (professionals i.e. , PA, MEDIA MONITOR, lab, RT, psych nurse, social welfare research worker, medicaid billing specialist, teacher, lead security officer, rn field case manager)? Give summary @ -[No] Was smoking cessation discussed for >3mins.? @ -[No] Was critical care preformed (if so, how long)? @ -[No] Were there social determinants of health that impacted care today? How? (Homelessness, low income, unemployed, alcoholism, drug addiction, transportation, low edu. Level, literacy, decrease access to med. care, custodial, rehab)? @ -[No] Was there de-escalation of care discussed even if they declined (Discuss DNR or withdrawal of care, Hospice)? DNR status @ -[No] What co-morbidities impacted this encounter? (DM, HTN, Smoking, COPD, CAD, Cancer, CVA, ARF, Chemo, Hep., AIDS, mental health diagnosis, sleep apnea, morbid obesity)? @ -[None] Was patient admitted / discharged? Hospital course, mention meds given and route, prescriptions, significant lab abnormalities, going to OR and other pertinent info. @ Discharged. This is a pleasant 63-year-old female presents emergency department with possible hernia. Patient had a thorough history and physical exam performed. No evidence of umbilical hernia at the time of evaluation. Patient is not markedly tender. Vital signs stable. Patient's initial lactic acid is 2.7. HGB 11.2 Patient was provided 1 L of IV. She had laboratory studies and CT imaging which were essentially unremarkable. She'll be discharged in stable condition with recommended close follow-up with PCP in 3-5 days. She is provided a referral for surgeon to be followed up outpatient. Return precautions were discussed at length. Case discussed with COCO Joy who agrees with plan of care Undiagnosed new problem with uncertain prognosis? @ -[No] Drug Therapy requiring intensive monitoring for toxicity (Heparin, Nitro, Insulin, Cardizem)? @ -[No] Were any procedures done? @ -[No] Diagnosis/symptom? @ -Abdominal Pain - Occult Positive Acute, or Chronic, or Acute on Chronic? @ -Acute Uncomplicated (without systemic symptoms) or Complicated (systemic symptoms)? @ -Uncomplicated Side effects of treatment? @ -[No] Exacerbation, Progression, or Severe Exacerbation? @ -[No] Poses a threat to life or bodily function? How? (Chest pain, [place], [place], pneumonia, PE, COPD, DKA, ARF, appy, cholecystitis, CVA, Diverticulitis, Homicidal, Suicidal, threat to staff... and all critical care pts) @ -Low likelihood (Jennifer Dominguez) - Lab Data Lab Results 08/07/23 08/07/23 08/07/23 Range/Units 10:36 10:36 10:36 WBC 5.3 (3.8-10.6) k/uL RBC 3.67 L (3.80-5.40) m/uL Hgb 11.2 L (11.4-16.0) gm/dL Hct 31.8 L (34.0-46.0) % MCV 86.7 (80.0-100.0) fL MCH 30.5 (25.0-35.0) pg MCHC 35.2 (31.0-37.0) g/dL RDW 13.7 (11.5-15.5) % Plt Count 249 (150-450) k/uL MPV 7.4 Neutrophils % 81 % Lymphocytes % 9 % Monocytes % 6 % Eosinophils % 2 % Basophils % 1 % Neutrophils # 4.3 (1.3-7.7) k/uL Lymphocytes # 0.5 L (1.0-4.8) k/uL Monocytes # 0.3 (0-1.0) k/uL Eosinophils # 0.1 (0-0.7) k/uL Basophils # 0.0 (0-0.2) k/uL PT (9.0-12.0) sec INR (<1.2) APTT (22.0-30.0) sec Sodium 128 L (137-145) mmol/L Potassium 5.2 H (3.5-5.1) mmol/L Chloride 100 (98-107) mmol/L Carbon Dioxide 23 (22-30) mmol/L Anion Gap 5 mmol/L BUN 25 H (7-17) mg/dL Creatinine 0.77 (0.52-1.04) mg/dL Est GFR (CKD-EPI)AfAm >90 (>60 ml/min/1.73 sqM) Est GFR (CKD-EPI)NonAf 84 (>60 ml/min/1.73 sqM) Glucose 230 H (74-99) mg/dL Lactic Ac Sepsis Rflx Plasma Lactic Acid Arturo 2.7 H* (0.7-2.0) mmol/L Calcium 9.1 (8.4-10.2) mg/dL Total Bilirubin 0.6 (0.2-1.3) mg/dL AST 29 (14-36) U/L ALT 31 (4-34) U/L Alkaline Phosphatase 74 (38-126) U/L Total Protein 6.0 L (6.3-8.2) g/dL Albumin 3.5 (3.5-5.0) g/dL Lipase 208 (23-300) U/L Urine Color Urine Appearance (Clear) Urine pH (5.0-8.0) Ur Specific [place] (1.001-1.035) Urine Protein (Negative) Urine Glucose (UA) (Negative) Urine Ketones (Negative) Urine Blood (Negative) Urine Nitrite (Negative) Urine Bilirubin (Negative) Urine Urobilinogen (<2.0) mg/dL Ur Leukocyte Esterase (Negative) Urine RBC (0-5) /hpf Urine WBC (0-5) /hpf Ur Squamous Epith Cells (0-4) /hpf Urine Mucus (None) /hpf Stool Occult Blood (Negative) 08/07/23 08/07/23 08/07/23 Range/Units 11:10 11:51 13:35 WBC (3.8-10.6) k/uL RBC (3.80-5.40) m/uL Hgb (11.4-16.0) gm/dL Hct (34.0-46.0) % MCV (80.0-100.0) fL MCH (25.0-35.0) pg MCHC (31.0-37.0) g/dL RDW (11.5-15.5) % Plt Count (150-450) k/uL MPV Neutrophils % % Lymphocytes % % Monocytes % % Eosinophils % % Basophils % % Neutrophils # (1.3-7.7) k/uL Lymphocytes # (1.0-4.8) k/uL Monocytes # (0-1.0) k/uL Eosinophils # (0-0.7) k/uL Basophils # (0-0.2) k/uL PT 20.4 H (9.0-12.0) sec INR 2.1 H (<1.2) APTT 35.3 H (22.0-30.0) sec Sodium (137-145) mmol/L Potassium (3.5-5.1) mmol/L Chloride (98-107) mmol/L Carbon Dioxide (22-30) mmol/L Anion Gap mmol/L BUN (7-17) mg/dL Creatinine (0.52-1.04) mg/dL Est GFR (CKD-EPI)AfAm (>60 ml/min/1.73 sqM) Est GFR (CKD-EPI)NonAf (>60 ml/min/1.73 sqM) Glucose (74-99) mg/dL Lactic Ac Sepsis Rflx Y Plasma Lactic Acid Arturo (0.7-2.0) mmol/L Calcium (8.4-10.2) mg/dL Total Bilirubin (0.2-1.3) mg/dL AST (14-36) U/L ALT (4-34) U/L Alkaline Phosphatase (38-126) U/L Total Protein (6.3-8.2) g/dL Albumin (3.5-5.0) g/dL Lipase (23-300) U/L Urine Color Colorless Urine Appearance Clear (Clear) Urine pH 6.5 (5.0-8.0) Ur Specific [place] 1.020 (1.001-1.035) Urine Protein 3+ H (Negative) Urine Glucose (UA) Trace H (Negative) Urine Ketones Negative (Negative) Urine Blood Trace H (Negative) Urine Nitrite Negative (Negative) Urine Bilirubin Negative (Negative) Urine Urobilinogen <2.0 (<2.0) mg/dL Ur Leukocyte Esterase Negative (Negative) Urine RBC 2 (0-5) /hpf Urine WBC 4 (0-5) /hpf Ur Squamous Epith Cells <1 (0-4) /hpf Urine Mucus Rare H (None) /hpf Stool Occult Blood (Negative) 08/07/23 Range/Units 14:28 WBC (3.8-10.6) k/uL RBC (3.80-5.40) m/uL Hgb (11.4-16.0) gm/dL Hct (34.0-46.0) % MCV (80.0-100.0) fL MCH (25.0-35.0) pg MCHC (31.0-37.0) g/dL RDW (11.5-15.5) % Plt Count (150-450) k/uL MPV Neutrophils % % Lymphocytes % % Monocytes % % Eosinophils % % Basophils % % Neutrophils # (1.3-7.7) k/uL Lymphocytes # (1.0-4.8) k/uL Monocytes # (0-1.0) k/uL Eosinophils # (0-0.7) k/uL Basophils # (0-0.2) k/uL PT (9.0-12.0) sec INR (<1.2) APTT (22.0-30.0) sec Sodium (137-145) mmol/L Potassium (3.5-5.1) mmol/L Chloride (98-107) mmol/L Carbon Dioxide (22-30) mmol/L Anion Gap mmol/L BUN (7-17) mg/dL Creatinine (0.52-1.04) mg/dL Est GFR (CKD-EPI)AfAm (>60 ml/min/1.73 sqM) Est GFR (CKD-EPI)NonAf (>60 ml/min/1.73 sqM) Glucose (74-99) mg/dL Lactic Ac Sepsis Rflx Plasma Lactic Acid Arturo (0.7-2.0) mmol/L Calcium (8.4-10.2) mg/dL Total Bilirubin (0.2-1.3) mg/dL AST (14-36) U/L ALT (4-34) U/L Alkaline Phosphatase (38-126) U/L Total Protein (6.3-8.2) g/dL Albumin (3.5-5.0) g/dL Lipase (23-300) U/L Urine Color Urine Appearance (Clear) Urine pH (5.0-8.0) Ur Specific [place] (1.001-1.035) Urine Protein (Negative) Urine Glucose (UA) (Negative) Urine Ketones (Negative) Urine Blood (Negative) Urine Nitrite (Negative) Urine Bilirubin (Negative) Urine Urobilinogen (<2.0) mg/dL Ur Leukocyte Esterase (Negative) Urine RBC (0-5) /hpf Urine WBC (0-5) /hpf Ur Squamous Epith Cells (0-4) /hpf Urine Mucus (None) /hpf Stool Occult Blood Positive H (Negative) Disposition <Huy Waldrop - Last Filed: 08/07/23 10:01> Is patient prescribed a controlled substance at d/c from ED?: No Time of Disposition: 15:15 <Jennifer Dominguez - Last Filed: 08/07/23 18:55> Clinical Impression: Abdominal pain, Umbilical hernia Disposition: HOME SELF-CARE Condition: Stable Instructions (If sedation given, give patient instructions): Laxative, Stool Softeners (By mouth), Umbilical Hernia (ED), Abdominal Pain (ED), Melena (ED) Additional Instructions: Please return to the nearest emergency department if symptoms worsen or persist Referrals: Deepali Hess MD [Primary Care Provider] - 1-2 days Kinza Menendez MD [STAFF PHYSICIAN] - 1-2 days
[2023-08-07 10:45] LABS: Basophils % (A) 1 %; Eosinophils # (A) 0.1 k/uL (0-0.7); Eosinophils % (A) 2 %; HCT 31.8 % (34.0-46.0); HGB 11.2 gm/dL (11.4-16.0); Lymphocytes # (A) 0.5 k/uL (1.0-4.8); Lymphocytes % (A) 9 %; MCH 30.5 pg (25.0-35.0); MCHC 35.2 g/dL (31.0-37.0); MCV 86.7 fL (80.0-100.0); Mean Platelet Volume 7.4; Monocytes # (A) 0.3 k/uL (0-1.0); Monocytes % (A) 6 %; Neutrophils # (A) 4.3 k/uL (1.3-7.7); Neutrophils % (A) 81 %; Platelet Count 249 k/uL (150-450); RBC 3.67 m/uL (3.80-5.40); RDW 13.7 % (11.5-15.5); WBC 5.3 k/uL (3.8-10.6)
[2023-08-07] MEDS ORDERED: ONDANSETRON 4 MG/2 ML VIAL IVP STA (11:38)
[2023-08-07] MEDS ORDERED: MORPHINE SULFATE 4 MG/ML SYRINGE IVP STA ×2 (11:39→13:51)
[2023-08-07] MEDS ORDERED: KETOROLAC 15 MG/ML 1 ML VIAL IVP STA (11:41)
[2023-08-07 12:23] LABS: INR 2.1 (<1.2); Prothrombin Time 20.4 sec (9.0-12.0)
[2023-08-07 12:24] LABS: Partial Thromboplastin Time 35.3 sec (22.0-30.0)
[2023-08-07 12:28] LABS: ALT 31 U/L (4-34); AST 29 U/L (14-36); African American GFR (CKD) >90 (>60 ml/min/1.73 sqM); Albumin 3.5 g/dL (3.5-5.0); Alkaline Phosphatase 74 U/L (38-126); Anion Gap 5 mmol/L; Blood Urea Nitrogen 25 mg/dL (7-17); Calcium 9.1 mg/dL (8.4-10.2); Carbon Dioxide 23 mmol/L (22-30); Chloride 100 mmol/L (98-107); Glucose 230 mg/dL (74-99); Lipase 208 U/L (23-300); Non-African American GFR(CKD) 84 (>60 ml/min/1.73 sqM); Potassium 5.2 mmol/L (3.5-5.1); Sodium 128 mmol/L (137-145); Total Bilirubin 0.6 mg/dL (0.2-1.3)
--- NOTE | 2023-08-07 13:48 | CT ---
EXAMINATION TYPE: CT abdomen pelvis w con CT DLP: 1460.9 mGycm, Automated exposure control for dose reduction was used. DATE OF EXAM: 08/07/2023 1:23 PM COMPARISON: CT abdomen pelvis most recent from 07/24/2023. CLINICAL INDICATION:Female, 63 years old with history of abdominal pain; Abdominal pain TECHNIQUE: Axial CT of the abdomen and pelvis. Sagittal and coronal reformats were created on a [employer] workstation. Contrast used:100 ml mL of Isovue 300 with IV Contrast, (none if empty) Oral contrast used: without Oral Contrast (none if empty) FINDINGS: LOWER CHEST: Unremarkable ABDOMEN LIVER: Unremarkable GALLBLADDER AND BILE DUCTS: Unremarkable. PANCREAS: Unremarkable. SPLEEN: Unremarkable. ADRENAL GLANDS: Unremarkable. KIDNEYS AND URETERS: No evidence of hydronephrosis or renal calculus. The ureters are unremarkable. PELVIS BLADDER: Unremarkable REPRODUCTIVE: Unremarkable. ABDOMEN & PELVIS STOMACH AND BOWEL: No evidence of bowel obstruction. Small bowel feces are seen throughout the abdome n. Third portion duodenal diverticulum. The appendix is not definitively visualized. No significant s igns of appendicitis. PERITONEUM/RETROPERITONEUM: No evidence of pneumoperitoneum or free fluid. VASCULATURE: Mild atherosclerotic calcifications are present throughout the abdominal aorta and its b ranches. No evidence of aortic aneurysm. MUSCULOSKELETAL: No acute osseous abnormalities. Mild disc degeneration changes are present throughou t the thoracolumbar spine. LYMPH NODES: No gross evidence for lymphadenopathy. Prominent left external iliac lymph node measurin g up tor 8 mm in short axis is stable from prior. SOFT TISSUE/ABDOMINAL WALL: Fat-containing umbilical hernia. IMPRESSION: No definite evidence for acute abdominal process to explain the patient's pain. No evidence for obstr uctive uropathy. No evidence for colitis. There is small bowel feces throughout abdomen correlate for fecal stasis.
[2023-08-07 13:53] LABS: Appearance,Urine Clear (Clear); Bilirubin,Urine Negative (Negative); Blood,Urine Trace (Negative); Color,Urine Colorless; Glucose,Urine (UA) Trace (Negative); Ketones,Urine Negative (Negative); Leukocyte Esterase,Urine Negative (Negative); Mucus,Urine Rare /hpf; Nitrite,Urine Negative (Negative); PH, Urine 6.5 (5.0-8.0); Protein,Urine 3+ (Negative); RBC,Urine 2 /hpf (0-5); Squamous Epithelial Cell,Urine <1 /hpf (0-4); Urobilinogen,Urine <2.0 mg/dL (<2.0); WBC,Urine 4 /hpf (0-5)
[2023-08-08 15:42] VITALS: BP 129/93
[2023-08-08 15:43] VITALS: TEMP 97.7
== END 2023-08-07 15:45 | disposition home or self-care (01) ==
LOC: EC 09:10
DX: K42.9 Umbilical hernia without obstruction or gangrene (principal); E11.9 Type 2 diabetes mellitus without complications; K21.9 Gastro-esophageal reflux disease without esophagitis; E78.5 Hyperlipidemia, unspecified; E07.9 Disorder of thyroid, unspecified; I10 Essential (primary) hypertension; F41.9 Anxiety disorder, unspecified; F31.9 Bipolar disorder, unspecified; Z88.5 Allergy status to narcotic agent; Z79.01 Long term (current) use of anticoagulants; Z79.890 Hormone replacement therapy; Z79.899 Other long term (current) drug therapy
CPT/HCPCS: 36415; 80053; 83605; 83690; 85025; 85610; 85730; 82272; 81001; 74177; 99284; 96374; 96375 ×2; J2270; J2405; J1885; Q9967

== ENCOUNTER 2023-10-03 22:52 | Emergency (ER) | payer MEDICARE, OTHER ==
[2023-10-03 22:58] VITALS: RESP 18; TEMP 98.1
[2023-10-03] MEDS ORDERED: SODIUM CHLORIDE 0.9% 500 ML 500 ML IV STA (23:04)
[2023-10-03] MEDS ORDERED: LABETALOL 5 MG/ML VIAL MDV IVP STA (23:14)
[2023-10-03] MEDS ORDERED: diphenhydrAMINE 50 MG/ML 1 ML VIAL IVP STA (23:14)
--- NOTE | 2023-10-03 23:20 | ED ---
Recheck HPI - General Chief Complaint: Recheck/Abnormal Lab/Rx Stated Complaint: Hypertension Time Seen by Provider: 10/03/23 22:57 Source: EMS, RN notes reviewed, old records reviewed, Caregiver Mode of arrival: EMS Limitations: no limitations - History of Present Illness Initial Comments: This is a 63-year-old female who is a poor story but she presents today for evaluation of elevated blood pressure uncontrolled blood pressure at home. Patient again is unable to provide history, patient is on blood pressure control and had been taking blood pressure medication per EMS in transfer records. Patient is sent to our ER for evaluation regards to elevated blood pressure she has no complaints of headache chest pain or any other symptoms with high blood pressure MD Complaint: other (Elevated blood pressure) -: unknown Returns Today for: other (Elevated blood pressure) Symptoms Since Prior Visit: no new symptoms Context: planned re-check Associated Symptoms: none Treatments Prior to Arrival: other - Related Data Previous Rx's Medication Instructions Recorded Loratadine [Claritin] 10 mg PO DAILY tab 01/15/23 Ascorbic Acid [Vitamin C] 500 mg PO DAILY 30 Days #30 tab 02/28/23 Atorvastatin [Lipitor] 80 mg PO DAILY 30 Days #30 tab 02/28/23 Cholecalciferol [Vitamin D3 (25 50 mcg PO DAILY 30 Days #60 tab 02/28/23 Mcg = 1000 Iu)] Levothyroxine Sodium [Synthroid] 125 mcg PO DAILY@0630 30 Days #30 02/28/23 tab QUEtiapine [SEROquel] 150 mg PO HS 30 Days #45 tab 02/28/23 Valproic Acid Oral Soln [Depakene 500 mg PO DAILY 30 Days #300 ml 02/28/23 Syrup] Valproic Acid Oral Soln [Depakene 750 mg PO HS 30 Days #45 ml 02/28/23 Syrup] Warfarin [Coumadin] 5 mg PO SUTUWETHSA #10 tab 02/28/23 Warfarin [Coumadin] 7.5 mg PO MOFR #4 tab 02/28/23 clonazePAM [KlonoPIN] 0.5 mg PO BID 30 Days #60 tab 02/28/23 fluPHENAZine decanoate [Prolixin 50 mg IM Q7DAYS #1 ml 02/28/23 Decanoate] Allergies Allergy/AdvReac Type Severity Reaction Status Date / Time codeine AdvReac UPSET Verified 10/03/23 22:58 STOMACH Review of Systems ROS Statement: Those systems with pertinent positive or pertinent negative responses have been documented in the HPI. ROS Other: All systems not noted in ROS Statement are negative. Past Medical History Past Medical History: Diabetes Mellitus, GERD/Reflux, Hyperlipidemia, Hypertension, Pneumonia, Sleep Apnea/CPAP/BIPAP, Thyroid Disorder Additional Past Medical History / Comment(s): IDDM type II, neuropathy bilateral feet, rheumatic fever at age 11yrs/scar tissue on valve, aortic valve replacement (mechanical), pt states she had a blood clot around aortic valve prior to surgery, POLLO but does not tolerate Cpap, constipation, L ovarian cyst, hypothyroid., states infection left knee. History of Any Multi-Drug Resistant Organisms: None Reported, MRSA Date of last positivie culture/infection: None MDRO Source:: None Past Surgical History: Appendectomy, Cardiac Valve Replacement, Se ction, Joint Replacement, Orthopedic Surgery Additional Past Surgical History / Comment(s): BLANCA, aortic valve replacement (mechanical), L total knee arthroplasty, L foot bunionectomy, EGDs, colonoscopy. Past Anesthesia/Blood Transfusion Reactions: Previous Problems w/ Anesthesia Additional Past Anesthesia/Blood Transfusion Reaction / Comment(s): Stopped breathing when a EGD was done Past Psychological History: Anxiety, Bipolar, Depression, PTSD Smoking Status: Never smoker, Unknown if ever smoked Past Alcohol Use History: None Reported Past Drug Use History: None Reported - Past Family History Father Additional Family Medical History / Comment(s): Bipolar and ETOH abuse. Mother Additional Family Medical History / Comment(s): ETOH abuse. General Exam General appearance: alert, in no apparent distress Head exam: Present: atraumatic, normocephalic, normal inspection Eye exam: Present: normal appearance, PERRL, EOMI. Absent: scleral icterus, conjunctival injection, periorbital swelling ENT exam: Present: normal exam, mucous membranes moist Neck exam: Present: normal inspection. Absent: tenderness, meningismus, lymphadenopathy Respiratory exam: Present: normal lung sounds bilaterally. Absent: respiratory distress, wheezes, rales, rhonchi, stridor Cardiovascular Exam: Present: regular rate, normal rhythm, normal heart sounds. Absent: systolic murmur, diastolic murmur, rubs, gallop, clicks GI/Abdominal exam: Present: soft, normal bowel sounds. Absent: distended, tenderness, guarding, rebound, rigid Extremities exam: Present: normal inspection, full ROM, normal capillary refill. Absent: tenderness, pedal edema, joint swelling, calf tenderness Back exam: Present: normal inspection Neurological exam: Present: alert, oriented X3, CN II-XII intact Psychiatric exam: Present: normal affect, normal mood Skin exam: Present: warm, dry, intact, normal color. Absent: rash Course Vital Signs 10/03/23 10/03/23 10/04/23 22:53 23:30 00:23 Temperature 98.1 F Pulse Rate 85 81 80 Respiratory 18 18 18 Rate Blood Pressure 190/109 134/78 121/74 O2 Sat by Pulse 99 100 100 Oximetry - Reevaluation(s) Reevaluation #1: 10/03/23 Medical records reviewed Reevaluation #2: 10/03/23 Patient symptoms unchanged Reevaluation #3: Patient informed results questions answered Reevaluation #4: Was pt. sent in by a medical professional or institution (, PA, WATER SYSTEM OPERATOR, urgent care, hospital, or group home...) When possible be specific @ -no Did you speak to anyone other than the patient for history (EMS, parent, family, police, friend...)? What history was obtained from this source @ -no Did you review nursing and triage notes (agree or disagree)? Why? @ -agree Are old charts reviewed (outside hosp., previous admission, EMS record, old EKG, old radiological studies, urgent care reports/EKG's, group home records)? Report findings @ -yes Differential Diagnosis (chest pain, altered mental status, abdominal pain women, abdominal pain men, vaginal bleeding, weakness, fever, dyspnea, syncope, headache, dizziness, GI bleed, back pain, seizure, CVA, palpatations, mental health, musculoskeletal)? @ -prior EKG interpreted by me (3pts min.). @ -yes X-rays interpreted by me (1pt min.). @ -no CT interpreted by me (1pt min.). @ -no U/S interpreted by me (1pt. min.). @ -no What testing was considered but not performed or refused? (CT, X-rays, U/S, labs)? Why? @ -none What meds were considered but not given or refused? Why? @ -none Did you discuss the management of the patient with other professionals (professionals i.e. , PA, WATER SYSTEM OPERATOR, lab, RT, psych nurse, social media editor, retail security professional, teacher, patrol community service officer, rifle case repairer)? Give summary @ -no Was smoking cessation discussed for >3mins.? @ -no Was critical care preformed (if so, how long)? @ -no Were there social determinants of health that impacted care today? How? (Homelessness, low income, unemployed, alcoholism, drug addiction, transportation, low edu. Level, literacy, decrease access to med. care, fpc, rehab)? @ -none Was there de-escalation of care discussed even if they declined (Discuss DNR or withdrawal of care, Hospice)? DNR status @ -no What co-morbidities impacted this encounter? (DM, HTN, Smoking, COPD, CAD, Cancer, CVA, ARF, Chemo, Hep., AIDS, mental health diagnosis, sleep apnea, morbid obesity)? @ -none Was patient admitted / discharged? Hospital course, mention meds given and route, prescriptions, significant lab abnormalities, going to OR and other pertinent info. @ - 63 female presenting for evaluation regards to weakness causes of weakness, no significant male is found here in the ER patient can be discharged home Discharge Undiagnosed new problem with uncertain prognosis? @ -no Drug Therapy requiring intensive monitoring for toxicity (Heparin, Nitro, Insulin, Cardizem)? @ -no Were any procedures done? @ -no Diagnosis/symptom? @ -Hypertension Acute, or Chronic, or Acute on Chronic? @ -Acute Uncomplicated (without systemic symptoms) or Complicated (systemic symptoms)? @ -Complicated Side effects of treatment? @ -no Exacerbation, Progression, or Severe Exacerbation? @ -exacerbation Poses a threat to life or bodily function? How? (Chest pain, USA, NC, pneumonia, PE, COPD, DKA, ARF, appy, cholecystitis, CVA, Diverticulitis, Homicidal, Suicidal, threat to staff... and all critical care pts) @ -yes with significant blood pressure abnormalities Medical Decision Making - Medical Decision Making 63 female presenting for evaluation regards to weakness causes of weakness, no significant male is found here in the ER patient can be discharged home - Lab Data Result diagrams: 10/03/23 23:50 10/03/23 23:50 Lab Results 10/03/23 10/03/23 10/03/23 Range/Units 23:50 23:50 23:50 WBC 5.9 (3.8-10.6) k/uL RBC 3.64 L (3.80-5.40) m/uL Hgb 11.2 L (11.4-16.0) gm/dL Hct 30.8 L (34.0-46.0) % MCV 84.4 (80.0-100.0) fL MCH 30.8 (25.0-35.0) pg MCHC 36.5 (31.0-37.0) g/dL RDW 13.0 (11.5-15.5) % Plt Count 264 (150-450) k/uL MPV 6.7 Neutrophils % 72 % Lymphocytes % 16 % Monocytes % 6 % Eosinophils % 2 % Basophils % 1 % Neutrophils # 4.3 (1.3-7.7) k/uL Lymphocytes # 1.0 (1.0-4.8) k/uL Monocytes # 0.3 (0-1.0) k/uL Eosinophils # 0.1 (0-0.7) k/uL Basophils # 0.0 (0-0.2) k/uL PT 25.3 H (10.0-12.5) sec INR 2.6 H (<1.2) APTT 38.7 H (22.0-30.0) sec Sodium 127 L (137-145) mmol/L Potassium 3.7 (3.5-5.1) mmol/L Chloride 94 L (98-107) mmol/L Carbon Dioxide 22 (22-30) mmol/L Anion Gap 11 mmol/L BUN 18 H (7-17) mg/dL Creatinine 0.64 (0.52-1.04) mg/dL Est GFR (CKD-EPI)AfAm >90 (>60 ml/min/1.73 sqM) Est GFR (CKD-EPI)NonAf >90 (>60 ml/min/1.73 sqM) Glucose 179 H (74-99) mg/dL Calcium 8.2 L (8.4-10.2) mg/dL Phosphorus 3.7 (2.5-4.5) mg/dL Magnesium 1.3 L (1.6-2.3) mg/dL Total Bilirubin 0.4 (0.2-1.3) mg/dL AST 30 (14-36) U/L ALT 31 (4-34) U/L Alkaline Phosphatase 68 (38-126) U/L Troponin I (0.000-0.034) ng/mL NT-Pro-B Natriuret Pep 222 pg/mL Total Protein 5.5 L (6.3-8.2) g/dL Albumin 3.1 L (3.5-5.0) g/dL 10/03/23 Range/Units 23:50 WBC (3.8-10.6) k/uL RBC (3.80-5.40) m/uL Hgb (11.4-16.0) gm/dL Hct (34.0-46.0) % MCV (80.0-100.0) fL MCH (25.0-35.0) pg MCHC (31.0-37.0) g/dL RDW (11.5-15.5) % Plt Count (150-450) k/uL MPV Neutrophils % % Lymphocytes % % Monocytes % % Eosinophils % % Basophils % % Neutrophils # (1.3-7.7) k/uL Lymphocytes # (1.0-4.8) k/uL Monocytes # (0-1.0) k/uL Eosinophils # (0-0.7) k/uL Basophils # (0-0.2) k/uL PT (10.0-12.5) sec INR (<1.2) APTT (22.0-30.0) sec Sodium (137-145) mmol/L Potassium (3.5-5.1) mmol/L Chloride (98-107) mmol/L Carbon Dioxide (22-30) mmol/L Anion Gap mmol/L BUN (7-17) mg/dL Creatinine (0.52-1.04) mg/dL Est GFR (CKD-EPI)AfAm (>60 ml/min/1.73 sqM) Est GFR (CKD-EPI)NonAf (>60 ml/min/1.73 sqM) Glucose (74-99) mg/dL Calcium (8.4-10.2) mg/dL Phosphorus (2.5-4.5) mg/dL Magnesium (1.6-2.3) mg/dL Total Bilirubin (0.2-1.3) mg/dL AST (14-36) U/L ALT (4-34) U/L Alkaline Phosphatase (38-126) U/L Troponin I 0.016 (0.000-0.034) ng/mL NT-Pro-B Natriuret Pep pg/mL Total Protein (6.3-8.2) g/dL Albumin (3.5-5.0) g/dL - EKG Data -: EKG Interpreted by Me (EKG is sinus 80 MO 164 QRS 100 QTc 442) Disposition Clinical Impression: Hypertension Disposition: HOME SELF-CARE Condition: Good Instructions (If sedation given, give patient instructions): Hypertension (ED) Is patient prescribed a controlled substance at d/c from ED?: No Referrals: Deepali Hess MD [Primary Care Provider] - 1-2 days Time of Disposition: 00:30
[2023-10-04 00:05] LABS: Basophils % (A) 1 %; Eosinophils # (A) 0.1 k/uL (0-0.7); Eosinophils % (A) 2 %; HCT 30.8 % (34.0-46.0); HGB 11.2 gm/dL (11.4-16.0); Lymphocytes % (A) 16 %; MCH 30.8 pg (25.0-35.0); MCHC 36.5 g/dL (31.0-37.0); MCV 84.4 fL (80.0-100.0); Mean Platelet Volume 6.7; Monocytes # (A) 0.3 k/uL (0-1.0); Monocytes % (A) 6 %; Neutrophils # (A) 4.3 k/uL (1.3-7.7); Neutrophils % (A) 72 %; Platelet Count 264 k/uL (150-450); RBC 3.64 m/uL (3.80-5.40); WBC 5.9 k/uL (3.8-10.6)
[2023-10-04] MEDS ORDERED: ACETAMINOPHEN TAB 500 MG TAB PO STA (00:08)
[2023-10-04 00:11] LABS: INR 2.6 (<1.2); Partial Thromboplastin Time 38.7 sec (22.0-30.0); Prothrombin Time 25.3 sec (10.0-12.5)
[2023-10-04] MEDS ORDERED: KETOROLAC 15 MG/ML 1 ML VIAL IVP STA (00:31)
[2023-10-04] MEDS ORDERED: PROCHLORPERAZINE INJ 10 MG/2 ML VIAL IVP STA (00:31)
[2023-10-04 00:37] VITALS: BP 121/74; PULSE 80
[2023-10-04 01:31] LABS: ALT 31 U/L (4-34); AST 30 U/L (14-36); African American GFR (CKD) >90 (>60 ml/min/1.73 sqM); Albumin 3.1 g/dL (3.5-5.0); Alkaline Phosphatase 68 U/L (38-126); Anion Gap 11 mmol/L; Blood Urea Nitrogen 18 mg/dL (7-17); Calcium 8.2 mg/dL (8.4-10.2); Carbon Dioxide 22 mmol/L (22-30); Chloride 94 mmol/L (98-107); Glucose 179 mg/dL (74-99); Magnesium 1.3 mg/dL (1.6-2.3); Non-African American GFR(CKD) >90 (>60 ml/min/1.73 sqM); Phosphorus 3.7 mg/dL (2.5-4.5); Potassium 3.7 mmol/L (3.5-5.1); Sodium 127 mmol/L (137-145); Total Bilirubin 0.4 mg/dL (0.2-1.3); Total Protein 5.5 g/dL (6.3-8.2)
[2023-10-04 01:39] LABS: NT-Pro-B-Type Natriuretic Pept 222 pg/mL
== END 2023-10-04 00:49 | disposition home or self-care (01) ==
LOC: EC 22:52
DX: I10 Essential (primary) hypertension (principal); E11.40 Type 2 diabetes mellitus with diabetic neuropathy, unspecified; I25.10 Atherosclerotic heart disease of native coronary artery without angina pectoris; Z86.59 Personal history of other mental and behavioral disorders; Z88.5 Allergy status to narcotic agent
CPT/HCPCS: 36415; 93005; 83880; 80053; 83735; 84100; 84484; 85025; 85610; 85730; 99285; 96374; 96375 ×2; J0780; J1885; J1920

== ENCOUNTER 2023-10-25 10:59 | Emergency (ER) | payer MEDICARE, OTHER ==
--- NOTE | 2023-10-25 11:23 | ED ---
Extremity Problem HPI - General Source: patient, RN notes reviewed <Cary Mcnulty - Last Filed: 10/25/23 11:22> <Maykel Rai - Last Filed: 10/25/23 14:56> - General Stated complaint: left foot numbness Time Seen by Provider: 10/25/23 11:22 - History of Present Illness Initial comments: Patient is a 63-year-old female presenting to the ER with chief complaint of left foot numbness. Patient states she had a stroke on Saturday. Patient states since then her left knee and left foot have been hurting. Patient denies any fevers, chills, night sweats. (Cary Mcnulty) Patient is a 63-year-old female presenting to the emergency room today with multiple complaints. Patient does admit that she believes she had a stroke 3 days ago. She states that she was at home. She states she was having some chest discomfort that she felt on the left side radiating to the left arm. She states that she also felt she could not call out for help and was aphasic. She states that that lasted approximately 30 minutes and resolved. States the chest pain lasted approximately one hour and then resolved. Patient does admit that she came in today because she was having some swelling and discomfort to the left knee down to the left foot. Denies any injury or trauma. Does admit that she has an artificial knee on the side with nuchal and has been told in the past that she needs to follow with either [facility] or [facility] to have this revised. The patient states that there is always some swelling to this knee but feels that it is more swollen and having more discomfort to this area in the lower leg. Patient denies any color change. Denies any other complaints or any other symptoms currently.Patient denies any recent fever, chills, shortness of breath, back pain, abdominal pain, nausea or vomiting, headaches or visual changes, or any other complaints. (Maykel Rai) - Related Data Home Medications Medication Instructions Recorded Confirmed Ezetimibe [Zetia] 10 mg PO DAILY 10/25/23 10/25/23 Fluticasone Nasal [place] [Flonase 2 spray EA NOSTRIL DAILY 10/25/23 10/25/23 Nasal [place]] Insulin Glargine,Hum.rec.anlog 10 unit SQ HS@2100 10/25/23 12/01/23 [Jenelleaglnadine Braun U-100] LORazepam [Ativan] 1 mg PO TID@0800,1700,209910/25/23 10/25/23 Levothyroxine Sodium [Synthroid] 150 mcg PO DAILY@0600 10/25/23 10/25/23 Losartan Potassium 100 mg PO DAILY 10/25/23 10/25/23 Lurasidone [Latuda] 60 mg PO PC-BID@1700,209910/25/23 10/25/23 Metformin Er 750mg 750 mg PO W/SUPPER 10/25/23 10/25/23 NIFEdipine XL [Procardia Xl] 30 mg PO DAILY@1700 10/25/23 10/25/23 Rosuvastatin [Crestor] 10 mg PO HS@209910/25/23 10/25/23 Warfarin [Coumadin] 7.5 mg PO SUTUTHSA@209910/25/23 10/25/23 Warfarin [Coumadin] 10 mg PO MOWEFR@209910/25/23 10/25/23 carvediloL [Coreg] 12.5 mg PO BID@1400,209910/25/23 10/25/23 hydrALAZINE HCL [Apresoline] 100 mg PO TID@0800,1400,209910/25/23 10/25/23 traZODone HCL [Desyrel] 50 mg PO HS@209910/25/23 10/25/23 Previous Rx's Medication Instructions Recorded Cholecalciferol [Vitamin D3 (25 50 mcg PO DAILY 30 Days #60 tab 02/28/23 Mcg = 1000 Iu)] Allergies Allergy/AdvReac Type Severity Reaction Status Date / Time codeine AdvReac UPSET Verified 10/25/23 14:30 STOMACH Review of Systems ROS Other: All systems not noted in ROS Statement are negative. <Cary Mcnulty - Last Filed: 10/25/23 11:22> ROS Other: All systems not noted in ROS Statement are negative. <Maykel Rai - Last Filed: 10/25/23 14:56> ROS Statement: Those systems with pertinent positive or pertinent negative responses have been documented in the HPI. Past Medical History Past Medical History: Diabetes Mellitus, GERD/Reflux, Hyperlipidemia, Hypertension, Pneumonia, Sleep Apnea/CPAP/BIPAP, Thyroid Disorder Additional Past Medical History / Comment(s): IDDM type II, neuropathy bilateral feet, rheumatic fever at age 11yrs/scar tissue on valve, aortic valve replacement (mechanical), pt states she had a blood clot around aortic valve prior to surgery, POLLO but does not tolerate Cpap, constipation, L ovarian cyst, hypothyroid., states infection left knee. History of Any Multi-Drug Resistant Organisms: None Reported, MRSA Date of last positivie culture/infection: None MDRO Source:: None Past Surgical History: Appendectomy, Cardiac Valve Replacement, Section, Joint Replacement, Orthopedic Surgery Additional Past Surgical History / Comment(s): BLANCA, aortic valve replacement (mechanical), L total knee arthroplasty, L foot bunionectomy, EGDs, colonoscopy. Past Anesthesia/Blood Transfusion Reactions: Previous Problems w/ Anesthesia Additional Past Anesthesia/Blood Transfusion Reaction / Comment(s): Stopped breathing when a EGD was done Past Psychological History: Anxiety, Bipolar, Depression, PTSD Smoking Status: Never smoker, Unknown if ever smoked Past Alcohol Use History: None Reported Past Drug Use History: None Reported - Past Family History Father Additional Family Medical History / Comment(s): Bipolar and ETOH abuse. Mother Additional Family Medical History / Comment(s): ETOH abuse. <Cary Mcnulty - Last Filed: 10/25/23 11:22> General Exam <Cary Mcnulty - Last Filed: 10/25/23 11:22> <Maykel Rai - Last Filed: 10/25/23 14:56> - General Exam Comments Initial Comments: Visual Physical Exam Vital signs reviewed General: Well-appearing, nontoxic, no acute distress. Head: Normocephalic, atraumatic Eyes: PERRLA, EOMI ENT: Airway patent Chest: Nonlabored breathing Skin: No visual rash, normal skin tone Neuro: Alert and oriented 3 Musculoskeletal: No gross abnormalities (Cary Mcnulty) General: The patient is awake and alert, in no distress, and does not appear acutely ill. Eye: Pupils are equal, round and reactive to light, extra-ocular movements are intact. No nystagmus. There is normal conjunctiva bilaterally. No signs of icterus. Ears, nose, mouth and throat: There are moist mucous membranes and no oral lesions. Neck: The neck is supple, there is no tenderness or JVD. Cardiovascular: There is a regular rate and rhythm. No murmur, rub or gallop is appreciated. Respiratory: Lungs are clear to auscultation, respirations are non-labored, breath sounds are equal. No wheezes, stridor, rales, or rhonchi. Musculoskeletal: Patient has good range of motion. Sensations are intact. Pupils are 2+. There is some moderate swelling to left knee when compared bilaterally. No skin color change. Strength 5/5. Neurological: A&O x 3. CN II-XII intact, There are no obvious motor or sensory deficits. Coordination appears grossly intact. Speech is normal. Skin: Skin is warm and dry and no rashes or lesions are noted. Psychiatric: Cooperative, appropriate mood & affect, normal judgment. (Maykel Ria) Course Vital Signs 10/25/23 11:27 Temperature 98.1 F Pulse Rate 81 Respiratory 20 Rate Blood Pressure 134/72 O2 Sat by Pulse 97 Oximetry Medical Decision Making <Cary Mcnulty - Last Filed: 10/25/23 11:22> - Lab Data Result diagrams: 10/25/23 12:20 10/25/23 12:20 <Maykel Rai - Last Filed: 10/25/23 14:56> - Medical Decision Making I performed the quick note portion of the exam. Electronically signed by Cary Mcnulty PA-C (Cary Mcnulty) EKG performed at 1219: Shows atrial fibrillation at 76 bpm. QRS 82. QT/QTC 382/413. No acute ST change. History was obtained from patient/Nurse/ Initial assessment and chief complaint: Leg pain/swelling Chronic conditions affecting care: At bedtime, CAD, mechanical valve Social determinants affecting care: None Differential diagnosis included, but not limited to: DVT, muscle strain, hardware loosening, CHF, CAD, ID, pneumonia, TIA Any imaging that may have been performed was also reviewed. I did an independent interpretation of the patient's imaging. My interpretation of x-rays of the left knee show stable hardware. X-ray of the chest was unremarkable; pneumonia, pneumothorax or other acute abnormalities. X-ray left foot negative for any fracture dislocation Patient is a 63-year-old female presented to the emergency room today with multiple complaints. She states she is worried that she had a stroke 3 days ago. Was not seen. States come in today to be evaluated. She states that she had an episode of chest pain that lasted one hour and episode of aphasia during this the last approximate 30 minutes. States all the symptoms resolve this rales [address] the head was unremarkable for any acute abnormalities. Patient's vitals been stable. EKG shows atrial fibrillation with controlled rate at 76 bpm. Patient denies any chest pain today. X-rays were obtained of the chest, left knee, left foot which are unremarkable for any acute abnormality a Doppler ultrasound obtained. Doppler is negative for any acute DVT. Patient's INR is 2.6 therapeutic. Patient was given dose of morphine here in the emergency room for pain. Does have a ride home back to her retirement. Was discussed about following with orthopedics, family physician. At this time she is resting comfortably feels comfortable being discharged home. The patient is advised that should return to emergency room if any symptoms increase or worsen or fail concerns. States understanding and is in agreement with plan. (Maykel Rai) - Lab Data Lab Results 10/25/23 10/25/23 10/25/23 Range/Units 12:20 12:20 12:20 WBC 7.5 (3.8-10.6) k/uL RBC 3.89 (3.80-5.40) m/uL Hgb 11.9 (11.4-16.0) gm/dL Hct 32.3 L (34.0-46.0) % MCV 83.1 (80.0-100.0) fL MCH 30.7 (25.0-35.0) pg MCHC 36.9 (31.0-37.0) g/dL RDW 13.0 (11.5-15.5) % Plt Count 271 (150-450) k/uL MPV 6.9 Neutrophils % 83 % Lymphocytes % 9 % Monocytes % 4 % Eosinophils % 1 % Basophils % 1 % Neutrophils # 6.2 (1.3-7.7) k/uL Lymphocytes # 0.7 L (1.0-4.8) k/uL Monocytes # 0.3 (0-1.0) k/uL Eosinophils # 0.0 (0-0.7) k/uL Basophils # 0.0 (0-0.2) k/uL PT 26.0 H (10.0-12.5) sec INR 2.6 H (<1.2) APTT 41.5 H (22.0-30.0) sec Sodium 130 L (137-145) mmol/L Potassium 4.5 (3.5-5.1) mmol/L Chloride 98 (98-107) mmol/L Carbon Dioxide 22 (22-30) mmol/L Anion Gap 10 mmol/L BUN 25 H (7-17) mg/dL Creatinine 0.75 (0.52-1.04) mg/dL Est GFR (CKD-EPI)AfAm >90 (>60 ml/min/1.73 sqM) Est GFR (CKD-EPI)NonAf 86 (>60 ml/min/1.73 sqM) Glucose 170 H (74-99) mg/dL Calcium 8.9 (8.4-10.2) mg/dL Urine Color Urine Appearance (Clear) Urine pH (5.0-8.0) Ur Specific [place] (1.001-1.035) Urine Protein (Negative) Urine Glucose (UA) (Negative) Urine Ketones (Negative) Urine Blood (Negative) Urine Nitrite (Negative) Urine Bilirubin (Negative) Urine Urobilinogen (<2.0) mg/dL Ur Leukocyte Esterase (Negative) Urine RBC (0-5) /hpf Urine WBC (0-5) /hpf Ur Squamous Epith Cells (0-4) /hpf Urine Bacteria (None) /hpf 10/25/23 Range/Units 12:20 WBC (3.8-10.6) k/uL RBC (3.80-5.40) m/uL Hgb (11.4-16.0) gm/dL Hct (34.0-46.0) % MCV (80.0-100.0) fL MCH (25.0-35.0) pg MCHC (31.0-37.0) g/dL RDW (11.5-15.5) % Plt Count (150-450) k/uL MPV Neutrophils % % Lymphocytes % % Monocytes % % Eosinophils % % Basophils % % Neutrophils # (1.3-7.7) k/uL Lymphocytes # (1.0-4.8) k/uL Monocytes # (0-1.0) k/uL Eosinophils # (0-0.7) k/uL Basophils # (0-0.2) k/uL PT (10.0-12.5) sec INR (<1.2) APTT (22.0-30.0) sec Sodium (137-145) mmol/L Potassium (3.5-5.1) mmol/L Chloride (98-107) mmol/L Carbon Dioxide (22-30) mmol/L Anion Gap mmol/L BUN (7-17) mg/dL Creatinine (0.52-1.04) mg/dL Est GFR (CKD-EPI)AfAm (>60 ml/min/1.73 sqM) Est GFR (CKD-EPI)NonAf (>60 ml/min/1.73 sqM) Glucose (74-99) mg/dL Calcium (8.4-10.2) mg/dL Urine Color Colorless Urine Appearance Clear (Clear) Urine pH 6.0 (5.0-8.0) Ur Specific [place] 1.010 (1.001-1.035) Urine Protein 2+ H (Negative) Urine Glucose (UA) 2+ H (Negative) Urine Ketones Negative (Negative) Urine Blood Negative (Negative) Urine Nitrite Negative (Negative) Urine Bilirubin Negative (Negative) Urine Urobilinogen <2.0 (<2.0) mg/dL Ur Leukocyte Esterase Negative (Negative) Urine RBC 1 (0-5) /hpf Urine WBC 1 (0-5) /hpf Ur Squamous Epith Cells <1 (0-4) /hpf Urine Bacteria Rare H (None) /hpf Disposition <Cary Mcnulty - Last Filed: 10/25/23 11:22> Is patient prescribed a controlled substance at d/c from ED?: No Time of Disposition: 14:56 <Maykel Rai - Last Filed: 10/25/23 14:56> Clinical Impression: Leg pain, TIA (transient ischemic attack) Disposition: HOME SELF-CARE Condition: Good Instructions (If sedation given, give patient instructions): Knee Pain (ED) Additional Instructions: Please follow-up family physician/orthopedics as discussed. Return to emergency room for any other concerns. Referrals: Nonstaff,Physician [REFERRING] - 1-2 days Keven Correa MD [REFERRING] - 1-2 days
--- NOTE | 2023-10-25 12:16 | XR ---
EXAMINATION TYPE: XR chest 2V DATE OF EXAM: 10/25/2023 12:13 PM CLINICAL INDICATION:Female, 63 years old with history of pain; [facility] COMPARISON: Chest radiographs from 01/29/2023. TECHNIQUE: XR chest 2V Frontal and lateral views of the chest. FINDINGS: Lungs/Pleura: There is no evidence of pleural effusion, focal consolidation, or pneumothorax. Pulmonary vascularity: Unremarkable. Heart/mediastinum: Cardiomediastinal silhouette is unremarkable. Post aortic valve repair changes. Musculoskeletal: No acute osseous pathology. Midline sternotomy wires are noted. Other findings: None Lines/Tubes: IMPRESSION: No acute cardiopulmonary disease/process.
--- NOTE | 2023-10-25 12:20 | XR ---
EXAMINATION TYPE: XR knee complete LT DATE OF EXAM: 10/25/2023 12:13 PM CLINICAL INDICATION:Female, 63 years old with history of pain; COMPARISON: 08/28/2022 TECHNIQUE: XR knee complete LT; examined in Frontal, lateral and oblique projections. FINDINGS: Postsurgical changes to the knee with migration of the stem of the knee revision arthropla sty through the cortex of the posterior lateral tibial proximal diaphysis on the left. No evidence of fracture. IMPRESSION: Post left knee revision arthroplasty with stem of the tibial prosthesis extending through the cortex posterior laterally. Findings similar to prior 08/28/2022. No evidence of fracture.
--- NOTE | 2023-10-25 12:25 | XR ---
EXAMINATION TYPE: XR foot complete LT DATE OF EXAM: 10/25/2023 12:13 PM CLINICAL INDICATION:Female, 63 years old with history of pain; COMPARISON: None TECHNIQUE: XR foot complete LT examined in the AP, oblique, and lateral projections. FINDINGS: No evidence of any acute osseous pathology. No evidence of soft tissue swelling. Fixation hardware in the left first digit tarsal appears intact. There is degeneration changes of the first digit metatarsophalangeal joint. Scattered osteoarthrosis changes throughout the foot with bre nt space narrowing and osteophyte formation.' Calcaneal plantar spurring noted. IMPRESSION: 1. No evidence of acute fracture. 2. Fixation screw in the first metatarsal which appears intact. 3. Scattered multifocal osteoarthrosis changes.
[2023-10-25 13:05] LABS: Basophils % (A) 1 %; Eosinophils % (A) 1 %; HCT 32.3 % (34.0-46.0); HGB 11.9 gm/dL (11.4-16.0); Lymphocytes # (A) 0.7 k/uL (1.0-4.8); Lymphocytes % (A) 9 %; MCH 30.7 pg (25.0-35.0); MCHC 36.9 g/dL (31.0-37.0); MCV 83.1 fL (80.0-100.0); Mean Platelet Volume 6.9; Monocytes # (A) 0.3 k/uL (0-1.0); Monocytes % (A) 4 %; Neutrophils # (A) 6.2 k/uL (1.3-7.7); Neutrophils % (A) 83 %; Platelet Count 271 k/uL (150-450); RBC 3.89 m/uL (3.80-5.40); WBC 7.5 k/uL (3.8-10.6)
[2023-10-25 13:12] LABS: INR 2.6 (<1.2); Partial Thromboplastin Time 41.5 sec (22.0-30.0)
--- NOTE | 2023-10-25 13:15 | CT ---
EXAMINATION TYPE: CT brain wo con DATE OF EXAM: 10/25/2023 COMPARISON: None available. HISTORY: WEAKNESS CT DLP: 1094.9 mGycm Automated exposure control for dose reduction was used. FINDINGS: There is no acute intracranial hemorrhage, mass, mass effect, midline shift, extra-axial fluid collec tion or hydrocephalus. The bales-white distinction is intact without evidence of an acute major vessel infarct. The visualized paranasal sinuses and mastoid air cells are clear. IMPRESSION: NO ACUTE INTRACRANIAL PROCESS.
[2023-10-25 13:16] LABS: Appearance,Urine Clear (Clear); Bacteria,Urine Rare /hpf; Bilirubin,Urine Negative (Negative); Blood,Urine Negative (Negative); Color,Urine Colorless; Glucose,Urine (UA) 2+ (Negative); Ketones,Urine Negative (Negative); Leukocyte Esterase,Urine Negative (Negative); Nitrite,Urine Negative (Negative); Protein,Urine 2+ (Negative); RBC,Urine 1 /hpf (0-5); Squamous Epithelial Cell,Urine <1 /hpf (0-4); Urobilinogen,Urine <2.0 mg/dL (<2.0); WBC,Urine 1 /hpf (0-5)
[2023-10-25 13:19] LABS: African American GFR (CKD) >90 (>60 ml/min/1.73 sqM); Anion Gap 10 mmol/L; Blood Urea Nitrogen 25 mg/dL (7-17); Calcium 8.9 mg/dL (8.4-10.2); Carbon Dioxide 22 mmol/L (22-30); Chloride 98 mmol/L (98-107); Glucose 170 mg/dL (74-99); Non-African American GFR(CKD) 86 (>60 ml/min/1.73 sqM); Potassium 4.5 mmol/L (3.5-5.1); Sodium 130 mmol/L (137-145)
--- NOTE | 2023-10-25 14:18 | US ---
EXAMINATION TYPE: US venous doppler duplex LE LT DATE OF EXAM: 10/25/2023 11:49 AM COMPARISON: 01/20/2023 CLINICAL INDICATION: Female, 63 years old with history of swelling; pain in left leg, numbness. SIDE PERFORMED: Left TECHNIQUE: The lower extremity deep venous system is examined utilizing real time linear array sonog [place] with graded compression, doppler sonography and color-flow sonography. VESSELS IMAGED: Common Femoral Vein Deep Femoral Vein Greater Saphenous Vein * Femoral Vein Popliteal Vein Small Saphenous Vein * Proximal Calf Veins (* superficial vessels) Left Leg: Negative for DVT IMPRESSION: No evidence of deep thrombosis.
[2023-10-25] MEDS ORDERED: MORPHINE SULFATE 4 MG/ML SYRINGE IM STA (14:53)
[2023-10-25 15:50] VITALS: BP 155/100; PULSE 83; RESP 16; TEMP 98.2
== END 2023-10-25 16:48 | disposition home or self-care (01) ==
LOC: EC 10:59
DX: G45.9 Transient cerebral ischemic attack, unspecified (principal); M79.605 Pain in left leg; E11.9 Type 2 diabetes mellitus without complications; E78.5 Hyperlipidemia, unspecified; K21.9 Gastro-esophageal reflux disease without esophagitis; I10 Essential (primary) hypertension; E07.9 Disorder of thyroid, unspecified; F41.9 Anxiety disorder, unspecified; F31.9 Bipolar disorder, unspecified; Z88.5 Allergy status to narcotic agent; Z79.890 Hormone replacement therapy; Z79.4 Long term (current) use of insulin; Z79.01 Long term (current) use of anticoagulants; Z79.51 Long term (current) use of inhaled steroids; Z79.899 Other long term (current) drug therapy; Z79.84 Long term (current) use of oral hypoglycemic drugs
CPT/HCPCS: 36415; 93005; 80048; 85025; 85610; 85730; 81001; 73562; 73630; 71046; 93971; 70450; 99284; 96372; J2270

== ENCOUNTER 2023-11-21 08:05 | Day surgery (SDC) | payer MEDICARE, OTHER ==
[2023-11-20 12:16] VITALS: BMI 35.6
--- NOTE | 2023-11-21 07:21 | P.GSHP ---
History of Present Illness H&P Date: 11/21/23 CHIEF COMPLAINT: Colon screen HISTORY OF PRESENT ILLNESS: The patient is a 63-year-old female who presents for colon screen. Lower endoscopy was offered for further evaluation and management. PAST MEDICAL HISTORY: Please see list. PAST SURGICAL HISTORY: Please see list. MEDICATIONS: Please see list. ALLERGIES: Please see list. SOCIAL HISTORY: No illicit drug use FAMILY HISTORY: No reports of Crohn disease or ulcerative colitis. REVIEW OF ORGAN SYSTEMS: CONSTITUTIONAL: No reports of fevers or chills. PHYSICAL EXAM: VITAL SIGNS: Stable GENERAL: Well-developed pleasant in no acute distress. HEENT: No scleral icterus. Extraocular movements grossly intact. Moist buccal mucosa. NECK: Supple without lymphadenopathy. CHEST: Unlabored respirations. Equal bilateral excursions. CARDIOVASCULAR: Regular rate and rhythm. Distal 2+ pulses. ABDOMEN: Soft, nontender, nondistended. MUSCULOSKELETAL: No clubbing, cyanosis, or edema. ASSESSMENT: 1. Colon screen. PLAN: 1. Recommend proceeding with a lower endoscopy Past Medical History Past Medical History: Diabetes Mellitus, GERD/Reflux, Hyperlipidemia, Hypertension, Pneumonia, Sleep Apnea/CPAP/BIPAP, Thyroid Disorder Additional Past Medical History / Comment(s): bleeding with stools,IDDM type II, neuropathy bilateral feet, rheumatic fever at age 11yrs/scar tissue on valve, aortic valve replacement (mechanical), pt states she had a blood clot around aortic valve prior to surgery, POLLO but does not tolerate Cpap, constipation, L ovarian cyst, hypothyroid., states infection left knee. History of Any Multi-Drug Resistant Organisms: None Reported Date of last positivie culture/infection: None MDRO Source:: None Past Surgical History: Appendectomy, Cardiac Valve Replacement, Section, Joint Replacement, Orthopedic Surgery Additional Past Surgical History / Comment(s): BLANCA, aortic valve replacement (mechanical), L total knee arthroplasty, L foot bunionectomy, EGDs, colonoscopy. Past Anesthesia/Blood Transfusion Reactions: Previous Problems w/ Anesthesia Additional Past Anesthesia/Blood Transfusion Reaction / Comment(s): Stopped breathing when a EGD was done-Denise at [facility] not aware but stated "pt stated woke up during during surgery with tube in her throat.". unk family hx and unk blood transfusion Smoking Status: Never smoker, Unknown if ever smoked - Past Family History Father Additional Family Medical History / Comment(s): Bipolar and ETOH abuse-[facility] unable to confirm Mother Additional Family Medical History / Comment(s): ETOH abuse.-[facility] unable to confirm Medications and Allergies Home Medications Medication Instructions Recorded Confirmed Type Ezetimibe [Zetia] 10 mg PO HS 10/25/23 11/20/23 History Fluticasone Nasal [place] [Flonase 2 spray EA NOSTRIL QA 10/25/23 11/20/23 History Nasal [place]] Insulin Glargine,Hum.rec.anlog 10 unit SQ QA 10/25/23 11/20/23 History [Basaglar Kwikpen U-100] LORazepam [Ativan] 1 mg PO TID@0800,1700,2100 10/25/23 11/20/23 History Levothyroxine Sodium [Synthroid] 150 mcg PO DAILY@0600 10/25/23 11/20/23 History Losartan Potassium 100 mg PO QAM 10/25/23 11/20/23 History NIFEdipine XL [Procardia Xl] 30 mg PO DAILY@1400 10/25/23 11/20/23 History Rosuvastatin [Crestor] 10 mg PO HS@2100 10/25/23 11/20/23 History Warfarin [Coumadin] 7.5 mg PO SUTUTHSA 10/25/23 11/20/23 History Warfarin [Coumadin] 10 mg PO MOWEFR 10/25/23 11/20/23 History carvediloL [Coreg] 12.5 mg PO BID@0800,1700 10/25/23 11/20/23 History hydrALAZINE HCL [Apresoline] 100 mg PO TID@0800,1400,2100 10/25/23 11/20/23 History traZODone HCL [Desyrel] 50 mg PO HS@2100 10/25/23 11/20/23 History Acetaminophen [Tylenol] 325 mg PO Q4H PRN 11/20/23 11/20/23 History Empagliflozin [Jardiance] 25 mg PO QAM 11/20/23 11/20/23 History Ergocalciferol [Vitamin D2 (1250 1,250 mcg PO FR 11/20/23 11/20/23 History Mcg = 33815 Iu)] Lurasidone [Latuda] 60 mg PO BID 11/20/23 11/20/23 History metFORMIN HCL [metFORMIN HCL ER 750 mg PO 1700 11/20/23 11/20/23 History Gastric] Allergies Allergy/AdvReac Type Severity Reaction Status Date / Time codeine AdvReac UPSET Verified 11/20/23 11:42 STOMACH
[~2023-11-21 08:05] MED LIST changes: -ACETAMINOPHEN TAB 500 MG TAB PO PRN; -DEXAMETHASONE SOD PHOSPHATE 10 MG/ML 1 ML VIAL IV PRN; -DEXAMETHASONE SOD PHOSPHATE 4 MG/ML 1 ML VIAL IV ONE; -DOCUSATE 100 MG CAP PO PRN; -FAMOTIDINE 20 MG/2 ML VIAL IVP PRN; -HYDROmorphone 0.5 MG/0.5 ML SYRINGE IVP PRN; -KETOROLAC 15 MG/ML 1 ML VIAL IVP PRN; +LACTATED RINGERS 1,000 ML IV SCH; -MIDAZOLAM 2 MG/2 ML VIAL IV PRN; -ONDANSETRON 4 MG/2 ML VIAL IVP ONE; -ONDANSETRON 4 MG/2 ML VIAL IVP PRN; -TRANEXAMIC ACID IN NACL,ISO-OS 1,000 MG in SALINE 1 100ML.BAG IVPB PRN; -oxyCODONE ER 10 MG TAB.ER.12H PO PRN
[2023-11-21 08:54] LABS: Glucose,Whole Blood 209 mg/dL (70-110)
[2023-11-21 08:58] VITALS: TEMP 97
[2023-11-21] MEDS ORDERED: PROPOFOL 10 MG/ML 20 ML VIAL IV ONE (09:14)
--- NOTE | 2023-11-21 09:39 | P.PCN ---
Date of Procedure: 11/21/23 Description of Procedure: PREOPERATIVE DIAGNOSIS: Colonoscopy screening POSTOPERATIVE DIAGNOSIS: Tubular adenoma transverse colon Sigmoid diverticulosis Internal hemorrhoids, grade 2 OPERATION: Colonoscopy to the ileocecal valve and appendiceal orifice, cecum Colonoscopy with hot snare polypectomy SURGEON: Kinza Menendez MD. ANESTHESIA: MAC. INDICATIONS: The patient is an 63-year-old female who presents for colon screening. Benefits and risks were described and informed consent was obtained. DESCRIPTION OF PROCEDURE: The patient had undergone a GoLYTELY prep. The patient had been brought into the operating room and laid in the left lateral decubitus position. After adequate intravenous sedation, the rectum was examined with 2% lidocaine jelly. External hemorrhoids were encountered. The rectal tone was within normal limits. No lesions were palpated in the rectal vault. An Olympus colonoscope was advanced until the cecum, ileocecal valve and appendiceal orifice were clearly viewed. The prep was fair. Sigmoid diverticulosis was encountered. Colonic polyps were found and removed. No evidence of focal colitis was found. Retroflexion of the scope demonstrated grade 2 internal hemorrhoids without active bleeding or inflammation. The colon was desufflated. The patient had to lerated the procedure well. Withdrawal time was over 6 minutes. FINDINGS: Aronchick preparation quality scale 1 (1-5) Internal hemorrhoids, grade 3 with recent inflammation and bleeding External hemorrhoids, grade 4. No arteriovenous malformations. Sigmoid diverticulosis Removal of 2 polyps: - Snare polypectomy transverse, 5 mm tubulovillous adenoma No focal colitis. RECOMMENDATIONS: Recommend repeat colonoscopy in 3 years, 2025 Plan - Discharge Summary Discharge Rx Participant: No New Discharge Prescriptions: Continue NIFEdipine XL [Procardia XL] 30 mg PO DAILY@1400 hydrALAZINE HCL [Apresoline] 100 mg PO TID@0800,1400,2100 carvediloL [Coreg*] 12.5 mg PO BID@0800,1700 traZODone HCL [Desyrel] 50 mg PO HS@2100 LORazepam [Ativan] 1 mg PO TID@0800,1700,2100 Losartan Potassium 100 mg PO QAM Warfarin [Coumadin] 7.5 mg PO SUTUTHSA Ergocalciferol [Vitamin D2 (1250 Mcg = 22961 Iu)] 1,250 mcg PO FR Acetaminophen [Tylenol] 325 mg PO Q4H PRN PRN Reason: Pain Rosuvastatin [Crestor] 10 mg PO HS@2100 Levothyroxine Sodium [Synthroid] 150 mcg PO DAILY@0600 Warfarin [Coumadin] 10 mg PO MOWEFR Fluticasone Nasal [place] [Flonase Nasal [place]] 2 spray EA NOSTRIL QAM Ezetimibe [Zetia] 10 mg PO HS Insulin Glargine,Hum.rec.anlog [Basaglar Kwikpen U-100] 10 unit SQ QAM Empagliflozin [Jardiance] 25 mg PO QAM Lurasidone [Latuda] 60 mg PO BID metFORMIN HCL [metFORMIN HCL ER Gastric] 750 mg PO 1700 Discharge Medication List Ezetimibe [Zetia] 10 mg PO HS 10/25/23 [History] Fluticasone Nasal [place] [Flonase Nasal [place]] 2 spray EA NOSTRIL QAM 10/25/23 [History] Insulin Glargine,Hum.rec.anlog [Basaglar Kwikpen U-100] 10 unit SQ QAM 10/25/23 [History] LORazepam [Ativan] 1 mg PO TID@0800,1700,209910/25/23 [History] Levothyroxine Sodium [Synthroid] 150 mcg PO DAILY@0600 10/25/23 [History] Losartan Potassium 100 mg PO QAM 10/25/23 [History] NIFEdipine XL [Procardia XL] 30 mg PO DAILY@1400 10/25/23 [History] Rosuvastatin [Crestor] 10 mg PO HS@209910/25/23 [History] Warfarin [Coumadin] 7.5 mg PO SUTUTHSA 10/25/23 [History] Warfarin [Coumadin] 10 mg PO MOWEFR 10/25/23 [History] carvediloL [Coreg*] 12.5 mg PO BID@0800,1700 10/25/23 [History] hydrALAZINE HCL [Apresoline] 100 mg PO TID@0800,1400,209910/25/23 [History] traZODone HCL [Desyrel] 50 mg PO HS@209910/25/23 [History] Acetaminophen [Tylenol] 325 mg PO Q4H PRN 11/20/23 [History] Empagliflozin [Jardiance] 25 mg PO QAM 11/20/23 [History] Ergocalciferol [Vitamin D2 (1250 Mcg = 64423 Iu)] 1,250 mcg PO FR 11/20/23 [History] Lurasidone [Latuda] 60 mg PO BID 11/20/23 [History] metFORMIN HCL [metFORMIN HCL ER Gastric] 750 mg PO 1700 11/20/23 [History] [facility] [facility] [place] [place] [facility] - [facility]23 Patient Instructions/Handouts: Colorectal Polyps (GEN), Diverticulosis Diet (GEN) Activity/Diet/Wound Care/Special Instructions: Start coumadin Nov 25 Discharge Disposition: HOME SELF-CARE
[2023-11-21 10:13] VITALS: BP 117/75; PULSE 70; RESP 18
== END 2023-11-21 10:22 | disposition home or self-care (01) ==
LOC: ORWHC2ENDO 08:05
PROVIDERS: ATTEND Surgery Plastic and Reconstructive Surgery
DX: Z12.11 Encounter for screening for malignant neoplasm of colon (principal); K63.5 Polyp of colon; K57.30 Diverticulosis of large intestine without perforation or abscess without bleeding; K21.9 Gastro-esophageal reflux disease without esophagitis; K64.1 Second degree hemorrhoids; K64.2 Third degree hemorrhoids; K64.4 Residual hemorrhoidal skin tags; I10 Essential (primary) hypertension; I00 Rheumatic fever without heart involvement; E78.5 Hyperlipidemia, unspecified; J18.9 Pneumonia, unspecified organism; G47.33 Obstructive sleep apnea (adult) (pediatric); I11.0 Hypertensive heart disease with heart failure; I25.2 Old myocardial infarction; E03.9 Hypothyroidism, unspecified; E11.40 Type 2 diabetes mellitus with diabetic neuropathy, unspecified; F43.10 Post-traumatic stress disorder, unspecified; F31.9 Bipolar disorder, unspecified; J45.909 Unspecified asthma, uncomplicated; Z90.49 Acquired absence of other specified parts of digestive tract; Z96.652 Presence of left artificial knee joint; Z98.890 Other specified postprocedural states; Z79.890 Hormone replacement therapy; Z79.84 Long term (current) use of oral hypoglycemic drugs; Z79.4 Long term (current) use of insulin; Z79.899 Other long term (current) drug therapy; Z88.5 Allergy status to narcotic agent
CPT/HCPCS: 88305; 45385; J2704

== ENCOUNTER 2023-11-27 18:27 | Emergency (ER) | payer MEDICARE, OTHER ==
[2023-11-27 18:59] VITALS: BP 116/69; PULSE 84; RESP 16; TEMP 98.9
[2023-11-27] MEDS ORDERED: KETOROLAC 15 MG/ML 1 ML VIAL IM STA (19:05)
--- NOTE | 2023-11-27 19:06 | ED ---
Extremity Problem HPI - General Source: patient, EMS Mode of arrival: EMS Limitations: no limitations <Cary Mcnulty - Last Filed: 11/27/23 19:05> <Benton Mota - Last Filed: 11/27/23 20:53> - General Chief complaint: Extremity Problem,Nontraumatic Stated complaint: L knee pain Time Seen by Provider: 11/27/23 19:06 - History of Present Illness Initial comments: Patient is 63-year-old female presented ER with chief complaint of left knee pain. Patient states she knelt in the bathroom and felt her Prostalac pot. Patient is now endorsing extreme pain. Patient had 2 knee replacements her last one completed by Dr. Gonzalez. (Cary Mcnulty) 63-year-old female presenting ED with a chief complaint of left knee pain. Patient states she was kneeling in her bathtub 3 days ago while cleaning her bathroom and since then has had pain of the left knee area. No other injuries at this time. No chest pain or shortness of breath. No other complaints. (Benton Mota) - Related Data Home Medications Medication Instructions Recorded Confirmed Ezetimibe [Zetia] 10 mg PO HS 10/25/23 11/21/23 Fluticasone Nasal [place] [Flonase 2 spray EA NOSTRIL QAM 10/25/23 11/21/23 Nasal [place]] Insulin Glargine,Hum.rec.anlog 10 unit SQ QAM 10/25/23 11/21/23 [Basaglar [place]pen U-100] LORazepam [Ativan] 1 mg PO TID@0800,1700,2100 10/25/23 11/21/23 Levothyroxine Sodium [Synthroid] 150 mcg PO DAILY@0600 10/25/23 11/21/23 Losartan Potassium 100 mg PO QAM 10/25/23 11/21/23 NIFEdipine XL [Procardia XL] 30 mg PO DAILY@1400 10/25/23 11/21/23 Rosuvastatin [Crestor] 10 mg PO HS@2100 10/25/23 11/21/23 Warfarin [Coumadin] 7.5 mg PO SUTUTHSA 10/25/23 11/20/23 Warfarin [Coumadin] 10 mg PO MOWEFR 10/25/23 11/21/23 carvediloL [Coreg*] 12.5 mg PO BID@0800,1700 10/25/23 11/21/23 hydrALAZINE HCL [Apresoline] 100 mg PO TID@0800,1400,2100 10/25/23 11/21/23 traZODone HCL [Desyrel] 50 mg PO HS@2100 10/25/23 11/21/23 Acetaminophen [Tylenol] 325 mg PO Q4H PRN 11/20/23 11/20/23 Empagliflozin [Jardiance] 25 mg PO QAM 11/20/23 11/21/23 Ergocalciferol [Vitamin D2 (1250 1,250 mcg PO FR 11/20/23 11/21/23 Mcg = 01123 Iu)] Lurasidone [Latuda] 60 mg PO BID 11/20/23 11/21/23 metFORMIN HCL [metFORMIN HCL ER 750 mg PO 1700 11/20/23 11/21/23 Gastric] Allergies Allergy/AdvReac Type Severity Reaction Status Date / Time codeine AdvReac UPSET Verified 11/21/23 08:37 STOMACH nickel AdvReac Unknown Verified 11/27/23 18:45 Review of Systems ROS Other: All systems not noted in ROS Statement are negative. <Cary Mcnulty - Last Filed: 11/27/23 19:05> ROS Other: All systems not noted in ROS Statement are negative. <Benton Mota - Last Filed: 11/27/23 20:53> ROS Statement: Those systems with pertinent positive or pertinent negative responses have been documented in the HPI. Past Medical History Past Medical History: Diabetes Mellitus, GERD/Reflux, Hyperlipidemia, Hypertension, Pneumonia, Sleep Apnea/CPAP/BIPAP, Thyroid Disorder Additional Past Medical History / Comment(s): bleeding with stools,IDDM type II, neuropathy bilateral feet, rheumatic fever at age 11yrs/scar tissue on valve, aortic valve replacement (mechanical), pt states she had a blood clot around aortic valve prior to surgery, POLLO but does not tolerate Cpap, constipation, L ovarian cyst, hypothyroid., states infection left knee. History of Any Multi-Drug Resistant Organisms: None Reported Date of last positivie culture/infection: None MDRO Source:: None Past Surgical History: Appendectomy, Cardiac Valve Replacement, Section, Joint Replacement, Orthopedic Surgery Additional Past Surgical History / Comment(s): BLANCA, aortic valve replacement (mechanical), L total knee arthroplasty, L foot bunionectomy, EGDs, colonoscopy. Past Anesthesia/Blood Transfusion Reactions: Previous Problems w/ Anesthesia Additional Past Anesthesia/Blood Transfusion Reaction / Comment(s): Stopped breathing when a EGD was done-Denise at [facility] not aware but stated "pt stated woke up during during surgery with tube in her throat.". unk family hx and unk blood transfusion Past Psychological History: Anxiety, Bipolar, Depression, PTSD, Schizophrenia Smoking Status: Never smoker, Unknown if ever smoked - Past Family History Father Additional Family Medical History / Comment(s): Bipolar and ETOH abuse-[facility] unable to confirm Mother Additional Family Medical History / Comment(s): ETOH abuse.-[facility] unable to confirm <Cary Mcnulty - Last Filed: 11/27/23 19:05> General Exam Limitations: no limitations <Cary Mcnulty - Last Filed: 11/27/23 19:05> General appearance: alert, in no apparent distress Neck exam: Present: normal inspection Respiratory exam: Present: normal lung sounds bilaterally Cardiovascular Exam: Present: regular rate, normal rhythm GI/Abdominal exam: Present: soft Extremities exam: Present: other (Full passive range of motion of the left lower extremity without any obvious deformities. Strength and sensation intact. Patient ambulating in the waiting room with no difficulties. DP/PT pulses intact.) Neurological exam: Present: alert, oriented X3 Skin exam: Present: warm, dry <Benton Mota - Last Filed: 11/27/23 20:53> - General Exam Comments Initial Comments: Visual Physical Exam Vital signs reviewed General: Well-appearing, nontoxic, no acute distress. Head: Normocephalic, atraumatic Eyes: PERRLA, EOMI ENT: Airway patent Chest: Nonlabored breathing Skin: No visual rash, normal skin tone Neuro: Alert and oriented 3 Musculoskeletal: Left patella is noticeably lateral (Cary Mcnulty) Course Vital Signs 11/27/23 18:44 Temperature 98.9 F Pulse Rate 84 Respiratory 16 Rate Blood Pressure 116/69 O2 Sat by Pulse 96 Oximetry Medical Decision Making <Cary Mcnulty - Last Filed: 11/27/23 19:05> <Benton Mota - Last Filed: 11/27/23 20:53> - Medical Decision Making I performed the quick note portion of the exam. Electronically signed by Cary Mcnulty PA-C (Cary Mcnulty) Was pt. sent in by a medical professional or institution ([facility]ER[facility] Cortes, [employer]ER, urgent care, hospital, or assisted...) When possible be specific @ -No Did you speak to anyone other than the patient for history (EMS, parent, family, police, friend...)? What history was obtained from this source @ -No Did you review nursing and triage notes (agree or disagree)? Why? @ -I reviewed and agree with nursing and triage notes Were old charts reviewed (outside hosp., previous admission, EMS record, old EKG, old radiological studies, urgent care reports/EKG's, assisted records)? Report findings @ -No old charts were reviewed Differential Diagnosis (chest pain, altered mental status, abdominal pain women, abdominal pain men, vaginal bleeding, weakness, fever, dyspnea, syncope, headache, dizziness, GI bleed, back pain, seizure, CVA, palpatations, mental health, musculoskeletal)? @ -Differential Musculoskeletal Muscular strain, contusion, ligament sprain, fracture, arthritis, septic arthritis, bursitis, cellulitis, muscle spasm, nerve compression, DVT, arterial occlusion, herpes zoster, electrolyte abnormality, tumor.... This is not meant to be in all inclusive list EKG interpreted by me (3pts min.). @ -As above X-rays interpreted by me (1pt min.). @ -X-ray of the left knee interpreted by me showing no evidence of fracture or other acute finding. Hardware appears intact. CT interpreted by me (1pt min.). @ -None done U/S interpreted by me (1pt. min.). @ -None done What testing was considered but not performed or refused? (CT, X-rays, U/S, labs)? Why? @ -None What meds were considered but not given or refused? Why? @ -None Did you discuss the management of the patient with other professionals (professionals i.e. [facility]ER[facility] Cortes, [employer] COMMISSIONER, lab, RT, psych nurse, social sciences research scientist, master rigger, teacher, quarantine officer, block and case maker)? Give summary @ -No Was smoking cessation discussed for >3mins.? @ -No Was critical care preformed (if so, how long)? @ -No Were there social determinants of health that impacted care today? How? (Homelessness, low income, unemployed, alcoholism, drug addiction, transportation, low edu. Level, literacy, decrease access to med. care, retirement, rehab)? @ -No Was there de-escalation of care discussed even if they declined (Discuss DNR or withdrawal of care, Hospice)? DNR status @ -No What co-morbidities impacted this encounter? (DM, HTN, Smoking, COPD, CAD, Cancer, CVA, ARF, Chemo, Hep., AIDS, mental health diagnosis, sleep apnea, morbid obesity)? @ -None Was patient admitted / discharged? Hospital course, mention meds given and route, prescriptions, significant lab abnormalities, going to OR and other pertinent info. @ -Discharge 63 year-old female presenting to the ED with a chief complaint of left knee pain after kneeling down in her bathtub 3 days ago. Imaging reveals no acute finding. Vital signs stable afebrile. Patient discharged home in stable condition and advised follow-up with her PCP. Undiagnosed new problem with uncertain prognosis? @ -No Drug Therapy requiring intensive monitoring for toxicity (Heparin, Nitro, Insulin, Cardizem)? @ -No Were any procedures done? @ -No Diagnosis/symptom? @ -Left knee pain Acute, or Chronic, or Acute on Chronic? @ -Acute Uncomplicated (without systemic symptoms) or Complicated (systemic symptoms)? @ -Uncomplicated Side effects of treatment? @ -No Exacerbation, Progression, or Severe Exacerbation? @ -No Poses a threat to life or bodily function? How? (Chest pain, [place], [place], pneumonia, PE, COPD, DKA, ARF, appy, cholecystitis, CVA, Diverticulitis, Homicidal, Suicidal, threat to staff... and all critical care pts) @ -No (Benton Mota) Disposition <Cary Mcnulty - Last Filed: 11/27/23 19:05> Is patient prescribed a controlled substance at d/c from ED?: No Time of Disposition: 20:53 <Benton Mota - Last Filed: 11/27/23 20:53> Clinical Impression: Knee pain Disposition: HOME SELF-CARE Condition: Good Additional Instructions: Please return to the Emergency Department if symptoms worsen or any other concerns. Please follow up with your PCP. Referrals: Deepali Hess MD [Primary Care Provider] - 1-2 days
--- NOTE | 2023-11-27 19:42 | XR ---
EXAMINATION TYPE: XR knee complete LT DATE OF EXAM: 11/27/2023 7:24 PM CLINICAL INDICATION:Female, 63 years old with history of pain; [facility] COMPARISON: Knee radiographs 10/25/2023. TECHNIQUE: The Left knee(s) was examined in Frontal, lateral and oblique projections. FINDINGS: Reconstruction of post total knee arthroplasty changes. The stem of the tibial component is again seen projecting through the cortex of the posterolateral tibia, findings overall stable comp ared to the prior study from October. No evidence of hardware fracture or acute osseous fracture. IMPRESSION: 1. No acute osseous pathology. 2. Redemonstrated total knee arthroplasty with migration of the tibial stem component through the pos terior lateral margin of the tibial cortex, stable when compared to prior exam.
[2023-11-27] MEDS ORDERED: ACET/COD 300 MG/30 MG STARTER PACK 6 TAB BTL PO STA (20:54)
== END 2023-11-27 21:52 | disposition home or self-care (01) ==
LOC: EC 18:27
DX: M25.562 Pain in left knee (principal); E11.9 Type 2 diabetes mellitus without complications; E78.5 Hyperlipidemia, unspecified; I10 Essential (primary) hypertension; G47.30 Sleep apnea, unspecified; E07.9 Disorder of thyroid, unspecified; F31.9 Bipolar disorder, unspecified; F41.9 Anxiety disorder, unspecified; Z79.4 Long term (current) use of insulin; Z79.84 Long term (current) use of oral hypoglycemic drugs; Z79.899 Other long term (current) drug therapy; Z79.890 Hormone replacement therapy; Z88.5 Allergy status to narcotic agent; Z91.048 Other nonmedicinal substance allergy status
CPT/HCPCS: 73562; 99283; 96372; J1885

== ENCOUNTER → 2023-12-10 | Outpatient (CLI) | payer MEDICARE, OTHER ==
--- NOTE | 2023-12-10 14:51 | NM ---
EXAMINATION TYPE: NM bone 3 phase DATE OF EXAM: 12/10/2023 COMPARISON: Radiograph 11/27/2023 CLINICAL INDICATION: Female, 63 years old with history of Z96.652 presents of L artificial knee; plac ed 3 years ago with revision 2 years ago. Swelling and discoloration. Technique: Triple phase bone scintigraphy was performed following the injection of 23.8 mCi Tc 99m MD P. Immediate images and 3 hours post injection images acquired. Imaging centered at the bilateral kn ees. FINDINGS: Flow images show relatively symmetric appearance of the knees. Pool and delayed images show increased activity about the femoral component of the left knee prosthes is. Degenerative tracer activity is present on the right. IMPRESSION: Left total knee arthroplasty. There is increased activity about the femoral component of the prosthesis. Unable to exclude loosening (infectious or mechanical) based on these findings. Lack of significant hyperemia on flow images argues against the former.
== END | disposition home or self-care (01) ==
LOC: RADNMMAIN 07:59
PROVIDERS: ATTEND Orthopaedic Surgery Adult Reconstructive Orthopaedic Surgery
DX: Z47.1 Aftercare following joint replacement surgery (principal); Z96.652 Presence of left artificial knee joint
CPT/HCPCS: 78315; A9503

== ENCOUNTER → 2023-12-12 | Outpatient (CLI) | payer MEDICARE, OTHER ==
--- NOTE | 2023-12-12 16:08 | NM ---
EXAMINATION TYPE: NM WBC limited DATE OF EXAM: 12/12/2023 COMPARISON: Three-phase bone scan 2 days earlier CLINICAL INDICATION: Female, 63 years old with history of Z96.652 artificial knee joint; TECHNIQUE: Following administration of 14.8 mCi mCi Tc99m Ceretec. Images obtained 4 hours post inj ection. FINDINGS: No asymmetric increased radiotracer uptake surrounding the left knee prosthesis out of prop ortion to degree of radiotracer uptake on bone scan images to suggest acute prosthetic infection. IMPRESSION: As above.
== END | disposition home or self-care (01) ==
LOC: RADNMMAIN 06:51
PROVIDERS: ATTEND Orthopaedic Surgery Adult Reconstructive Orthopaedic Surgery
DX: Z47.1 Aftercare following joint replacement surgery (principal); Z96.652 Presence of left artificial knee joint
CPT/HCPCS: 78300; A9569

== ENCOUNTER → 2023-12-17 | Outpatient (CLI) | payer MEDICARE, OTHER ==
--- NOTE | 2023-12-17 16:28 | NM ---
EXAMINATION TYPE: NM bone marrow imaging ltd DATE OF EXAM: 12/17/2023 COMPARISON: 12/10/2023, 12/12/2023. HISTORY: Abnormal 3 phase bone scan Delayed limited scanning was performed following the injection of 10.5 mCi Tc 99m MDP. Images were a cquired 1 hours post injection. FINDINGS: Photopenic defect from the patient's knee prosthesis is faintly visualized at the left knee. No signi ficant uptake is identified. No focal tibial plateau uptake is evident. IMPRESSION: 1. Radiotracer uptake on the current examination appears unremarkable. Loosening or infection is not identified. In comparison to the prior examinations no significant interval change is evident.
== END ==
LOC: RADNMMAIN 10:17
PROVIDERS: ATTEND Orthopaedic Surgery Adult Reconstructive Orthopaedic Surgery
DX: Z96.652 Presence of left artificial knee joint (principal)
CPT/HCPCS: 78102; A9541

== ENCOUNTER 2023-12-24 19:20 | Outpatient (CLI) | payer MEDICARE, OTHER ==
--- NOTE | 2023-12-25 21:59 | P.PCN ---
Date of Procedure: 12/24/23 Operative Findings: Polysomnography report Date of service is 12/24/2023 Personal history This is a 63-year-old female patient with known history of obstructive sleep apnea. The patient has has an AHI of 8.0 based on previous sleep studies and she has been utilizing CPAP therapy pressure of 14 cm of water. After using her CPAP machine for quite some time, she was unable to tolerate and she returned the machine back. Over the past 1 year, the patient's condition has changed and she reported poor sleep quality. She is taking trazodone 50 mg at bedtime. She is also taking Ativan 1 mg 3 times a day. She seems to be excessively somnolent. She has a poor sleep hygiene. She is taking naps during the day. She is going to bed early at around 8 PM and waking up frequently throughout the night. She has increased anxiety, increased restlessness in her legs. Based on that, a screening polysomnography was ordered. Her comorbid conditions include aortic valve disorder, bipolar disorder, hypothyroidism, hyperlipidemia, restless leg syndrome and diabetes mellitus type 2. The patient currently has a mechanical aortic valve and she is maintained on long-term anticoagulation with warfarin. Technical description The patient was studied using a standard complex polysomnography protocol that included recording of the 2 EKG, Central, occipital and frontal EEG, right and left outer canthus EOG, submental EMG, right and left anterior tibialis EMG, respiratory airflow by thermocouple and or pressure/flow transducer, respiratory efforts by abdominal and thoracic PVDF belts, oxygen saturation by cable oximetry. Position by observation synchronized the PSG. Equipment used: [employer]. Pertinent physical findings The patient has a height of 5 feet and 4 inches, weight is 211 pounds and a body mass index of 37.2 Sleep architecture The total time in bed was 480 minutes, and a total sleep time was 274.0 minutes and the sleep duration was 57.1%. The latency to sleep onset was 21 minutes and the latest REM sleep was 54.5 minutes. The sleep architecture was catheterized by 9.7% stage I, 66.8% stage II, 0% stage III and 23.5% REM sleep. The wake after sleep onset time was 185.0 minutes. The total arousal index was 3.5 Respiratory analysis The patient had a total of 24 obstructive events throughout the sleep study. The total number of obstructive apneas were 0, mixed apneas were 0, obstructive hypopneas were 24 and the resulting AHI was 5.3. The patient has no central e vents and the central apnea index was 0. Oxygenation analysis the patient's oxygen saturation while awake was 91%, lowest pulse ox was 72% during REM sleep. The patient spent approximately 36 minutes of the sleep time Pulse ox of 89% Sleep continuity summary The patient had a total of 16 arousals with an index of 3.5. The respiratory arousal index was 0.4 Periodic limb movement summary There was a total of 597 periodic limb movements with an index of 130. There was only 1 periodic limb movement activity with arousals with an index of 0.2 Cardiac summary Average heart rate was 77 with a minimum heart rate of 75 and a maximum heart rate of 81 Assessment Mild obstructive sleep apnea with an AHI of 5.3. Respiratory events were essentially in the form of obstructive hypopneas. Minimal oxygen saturations were encountered during the sleep study For sleep visit calculated to be at 57% No evidence of any sleep fragmentation and the total arousal index was 3.5 Excessive periodic limb movement activity, not causing any arousals Mechanical aortic valve and the patient has been maintained on anticoagulation with warfarin History of restless leg syndrome Diabetes mellitus Hypothyroidism Hypertension Hyperlipidemia Obesity Plan Based on my review of this current sleep study, the patient's sleep apnea is mild and warrants no further treatment. The patient has show occasional obst ructive hypopneas and an overall AHI was 5.1. As such, this explains her previous poor tolerability to CPAP therapy. Noted her previous sleep study also showed mild POLLO with an AHI of 8. As such, no further CPAP therapy is recommended. She is to concentrate on losing weight. Same time, she has multiple comorbidities including increased anxiety which is probably contributing to her poor ability to generate and maintain sleep. She also has excessive OH interval with activity and she needs to be considered for peripheral neuropathy as the patient is diabetic. Recommend tight blood sugar control. Recommend treating any periodic limb movement activity. Trazodone can potentially exacerbate her restlessness in lower extremities. Will make further adjustments in her medication to optimize her sleep maintenance. We did work on her sleep hygiene. We need to work on her sleep misconceptions. No need for CPAP therapy at this point in time. Will encourage the patient to follow-up with me in the office to discuss all those treatment options.
== END 2023-12-25 06:00 | disposition home or self-care (01) ==
LOC: 3 N SLEEP 19:20
PROVIDERS: ATTEND Internal Medicine Critical Care Medicine
DX: G47.33 Obstructive sleep apnea (adult) (pediatric) (principal); G47.61 Periodic limb movement disorder; G25.81 Restless legs syndrome; E11.9 Type 2 diabetes mellitus without complications; E03.9 Hypothyroidism, unspecified; I10 Essential (primary) hypertension; E78.5 Hyperlipidemia, unspecified; E66.9 Obesity, unspecified; Z88.5 Allergy status to narcotic agent; Z91.09 Other allergy status, other than to drugs and biological substances; Z79.84 Long term (current) use of oral hypoglycemic drugs; Z79.890 Hormone replacement therapy; Z79.4 Long term (current) use of insulin
CPT/HCPCS: 95810

== ENCOUNTER 2024-07-18 09:55 | Inpatient (IN) | payer MEDICARE, MEDICAID ==
[~2024-07-18 09:55] MED LIST changes: -LACTATED RINGERS 1,000 ML IV SCH; -LIDOCAINE 1% (10MG/ML) FOR IV START INTRADERMA PRN; +LORazepam 2 MG/ML INJ ONE; +carvediloL 12.5 MG TAB ONE; +hydrALAZINE HCL 50 MG TAB ONE
[2024-07-18] MEDS ORDERED: LORazepam 1 MG TAB ONE (15:03)
[2024-07-18] MEDS ORDERED: traZODone HCL 100 MG TAB ONE (20:20)
[2024-07-19] MEDS ORDERED: POTASSIUM CHLORIDE ER 10 MEQ TAB.ER.PRT PO PRN
[2024-07-19] MEDS ORDERED: FUROSEMIDE 20 MG TAB PO PRN
[2024-07-19] MEDS ORDERED: MAG HYDROX/AL HYDROX/SIMETH 30 ML CUP PO PRN (05:30)
[2024-07-19] MEDS ORDERED: OLANZapine 10 MG VIAL IM PRN (05:30)
[2024-07-19] MEDS ORDERED: LORazepam 2 MG/ML INJ IM PRN (05:30)
[2024-07-19] MEDS ORDERED: metFORMIN 500 MG TAB ONE ×2 (08:48→21:37)
[2024-07-19] MEDS ORDERED: FAMOTIDINE 20 MG TAB ONE (08:48)
--- NOTE | 2024-07-19 11:17 | P.HP ---
Psychiatric H&P - . H&P Date: 07/19/24 History & Physical: Allergies Allergy/AdvReac Type Severity Reaction Status Date / Time codeine AdvReac UPSET Verified 03/31/24 12:09 STOMACH nickel AdvReac Unknown Verified 03/31/24 12:09 Intake & Output 07/18/24 07/19/24 07/19/24 18:59 06:59 18:59 Weight 94.801 kg 07/19/24 11:13 This is a 64-year-old female who is currently hospitalized with acute psychosis Patient is a poor historian and is unable to give any details No other collateral information is available at this time An attempt was made to assess the patient where she reports that she has been here for 3 months Patient states that she is not having any issues or problems and she does not know as to why she is here Patient continues to stare and does not give any further answers She remains unreliable historian No other details available at this time Past history personal social history could not be collected at this time due to above-mentioned patient's mental status Further details will be collected manage the patient improves or other collateral information is available Mental status examination: Mental Status Exam: General Appearance: Patient appears to be midlly over weight, stated age is alert, . Behavior: Patient is calmly seated without any agitated behavior. Attempts to cooperate. Speech: Patient's speech is impoverished with monosyllabic responses Patient response with flippant answers and unreliable historian Mood/Affect: , affect is congruent and constricted. Suicidality/Homicidality: Patient denies having any suicidal or homicidal ideation intent or plan. Perceptions: Patient denies any visual hallucinations and denies any auditory hallucinations Though content/process: Thinking appears to be impoverished unable to assess if patient is experiencing any auditory or visual hallucinations Memory and concentration: Alert and oriented to person only Memory is poor Judgment and insight: Impaired Assessment Psychosis NOS, likely schizophrenia Plan: -Patient continues to meet criteria for inpatient psychiatric admission for symptom stabilization and safety.. -Medications: We will continue Latuda 60 mg twice daily as previously prescribed and continue observation for further intervention -When necessary Ativan and Haldol for agitation/aggression. Continue home medications as prescribed -NRT - nicotine patch -SW on board for discharge planning. Encouraged the patient to participate in milieu. Active Medications Generic Name Dose Route Start Last Admin Trade Name Freq PRN Reason Stop Dose Admin Acetaminophen 650 mg 07/19/24 05:30 Acetaminophen Tab 325 Mg Tab PO Q4HR PRN Fever and/ or Pain Al Hydroxide/Mg Hydroxide 30 ml 07/19/24 05:30 Mag Hydrox/Al Hydrox/Simeth 30 Ml Cup PO Q4HR PRN GI Upset Atorvastatin Calcium 20 mg 07/19/24 09:00 Atorvastatin 20 Mg Tab PO DAILY [facility] Carvedilol 12.5 mg 07/19/24 07:30 Carvedilol 12.5 Mg Tab PO BID-W/MEALS [facility] Dapagliflozin 10 mg 07/19/24 09:00 Dapagliflozin Propanediol 10 Mg Tablet PO DAILY [facility] Ezetimibe 10 mg 07/19/24 09:00 Ezetimibe 10 Mg Tab PO DAILY [facility] Famotidine 20 mg 07/19/24 09:00 Famotidine 20 Mg Tab PO DAILY [facility] Furosemide 20 mg 07/19/24 00:00 Furosemide 20 Mg Tab PO DAILY PRN Edema Hydralazine HCl 100 mg 07/19/24 09:00 Hydralazine Hcl 50 Mg Tab PO TID [facility] Ibuprofen 800 mg 07/19/24 00:00 Ibuprofen 800 Mg Tab PO Q8H PRN pain Levothyroxine Sodium 137 mcg 07/19/24 06:00 Levothyroxine 137 Mcg Tab PO 0600 [facility] Loratadine 10 mg 07/19/24 09:00 Loratadine 10 Mg Tab PO DAILY [facility] Lorazepam 2 mg 07/19/24 05:30 Lorazepam 2 Mg/Ml Inj IM Q6HR PRN Anxiety Lorazepam 2 mg 07/19/24 05:30 Lorazepam 1 Mg Tab PO Q6HR PRN Anxiety Losartan Potassium 100 mg 07/19/24 09:00 Losartan 50 Mg Tab PO DAILY [facility] Lurasidone HCl 60 mg 07/19/24 09:00 Lurasidone 60 Mg Tab PO BID [facility] Magnesium Oxide 400 mg 07/19/24 09:00 Magnesium Oxide 400 Mg Tab PO DAILY [facility] Meloxicam 7.5 mg 07/19/24 09:00 Meloxicam 7.5 Mg Tab PO DAILY [facility] Metformin HCl 500 mg 07/19/24 09:00 Metformin 500 Mg Tab PO BID [facility] Miscellaneous Information 0 each 07/19/24 00:00 Warfarin Per Pharmacy MISCELLANE DIRECTED PRN ANTICOAG Nifedipine 30 mg 07/19/24 09:00 Nifedipine Xl 30 Mg Tab.Er.24 PO DAILY [facility] Soliqua 36 Units Sq 1 each 07/19/24 09:00 Daily SQ DAILY [facility] Olanzapine 10 mg 07/19/24 05:30 Olanzapine 10 Mg Vial IM Q6HR PRN Agitation Olanzapine 10 mg 07/19/24 05:30 Olanzapine 10 Mg Tab PO Q6HR PRN Agitation Potassium Chloride 10 meq 07/19/24 00:00 Potassium Chloride Er 10 Meq Tab.Er.Prt PO DAILY PRN WITH LASIX Primidone 25 mg 07/19/24 21:00 Primidone 25 Mg Tab PO HS [facility] Trazodone HCl 100 mg 07/19/24 21:00 Trazodone Hcl 100 Mg Tab PO HS [facility]
[2024-07-19] MEDS: hydrALAZINE HCL 50 MG TAB PO SCH (11:45)
[2024-07-19] MEDS: LEVOTHYROXINE 137 MCG TAB PO SCH (11:45)
[2024-07-19] MEDS: ATORVASTATIN 20 MG TAB PO SCH (11:45)
[2024-07-19] MEDS: carvediloL 12.5 MG TAB PO SCH (11:45)
[2024-07-19] MEDS: FAMOTIDINE 20 MG TAB PO SCH (11:45)
[2024-07-19] MEDS: EZETIMIBE 10 MG TAB PO SCH (11:45)
[2024-07-19] MEDS: DAPAGLIFLOZIN PROPANEDIOL 10 MG TABLET PO SCH (11:45)
[2024-07-19] MEDS: LOSARTAN 50 MG TAB PO SCH (11:46)
[2024-07-19] MEDS: LURASIDONE 60 MG TAB PO SCH (11:46)
[2024-07-19] MEDS: NIFEdipine XL 30 MG TAB.ER.24 PO SCH (11:46)
[2024-07-19] MEDS: LORATADINE 10 MG TAB PO SCH (11:46)
[2024-07-19] MEDS: metFORMIN 500 MG TAB PO SCH (11:46)
[2024-07-19] MEDS: MELOXICAM 7.5 MG TAB PO SCH (11:46)
[2024-07-19] MEDS: MAGNESIUM OXIDE 400 MG TAB PO SCH (11:46)
[2024-07-19] MEDS: LIXISENATIDE SQ SCH (11:47)
[2024-07-19] MEDS: INSULIN GLARGINE SQ SCH (11:47)
[2024-07-19] MEDS ORDERED: LORazepam 1 MG TAB ONE ×2 (17:17→22:24)
[2024-07-19] MEDS: LORazepam 1 MG TAB PO PRN (17:18)
[2024-07-19] MEDS: traZODone HCL 100 MG TAB PO SCH (22:24)
[2024-07-19] MEDS: PRIMIDONE 25 MG TAB PO SCH (22:25)
[2024-07-20] MEDS ORDERED: LORazepam 1 MG TAB ONE (06:50)
[2024-07-20 11:09] LABS: Glucose,Whole Blood 190 mg/dL (70-110)
[2024-07-20 11:27] LABS: Basophils # (A) 0.1 k/uL (0-0.2); Basophils % (A) 1 %; Eosinophils # (A) 0.1 k/uL (0-0.7); Eosinophils % (A) 2 %; HCT 36.3 % (34.0-46.0); HGB 12.5 gm/dL (11.4-16.0); Lymphocytes # (A) 0.9 k/uL (1.0-4.8); Lymphocytes % (A) 15 %; MCH 30.4 pg (25.0-35.0); MCHC 34.5 g/dL (31.0-37.0); MCV 88.1 fL (80.0-100.0); Mean Platelet Volume 6.7; Monocytes # (A) 0.3 k/uL (0-1.0); Monocytes % (A) 5 %; Neutrophils # (A) 4.7 k/uL (1.3-7.7); Neutrophils % (A) 75 %; Platelet Count 283 k/uL (150-450); RBC 4.12 m/uL (3.80-5.40); RDW 12.4 % (11.5-15.5); WBC 6.3 k/uL (3.8-10.6)
[2024-07-20 11:37] LABS: ALT 23 U/L (4-34); AST 28 U/L (14-36); African American GFR (CKD) 73 (>60 ml/min/1.73 sqM); Albumin 3.7 g/dL (3.5-5.0); Alkaline Phosphatase 62 U/L (38-126); Anion Gap 5 mmol/L; Blood Urea Nitrogen 18 mg/dL (7-17); Calcium 9.1 mg/dL (8.4-10.2); Carbon Dioxide 25 mmol/L (22-30); Chloride 97 mmol/L (98-107); Glucose 180 mg/dL (74-99); Non-African American GFR(CKD) 64 (>60 ml/min/1.73 sqM); Potassium 4.1 mmol/L (3.5-5.1); Sodium 127 mmol/L (137-145); Total Bilirubin 0.5 mg/dL (0.2-1.3); Total Protein 5.9 g/dL (6.3-8.2)
--- NOTE | 2024-07-20 11:45 | P.PN ---
Progress Note - Text Progress Note Date: 07/20/24 Follow-up Mediation Review Chief Complaint: The police picked me up, I was walking on the street. Subjective: The patient noted that she was picked-up by the police from the side walk. She does not know why the police picked her up. She noted being in [facility] program. The patient noted that she does not have case assistant. She is freed. She won the petition and president Paz signed it. She noted that she does not take psych medications anymore. She stated that police is randomly picking-up people. 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 She was singing intermittently. She noted that she lives in [place]. She claims to have two homes one here and on in [place]. She stated that she has an apartment by the [employer] [place] on [address]. The patient is attending the groups. The participation is good. The interaction with staff and peers is fair. The patient is not compliant with treatment recommendations. Leading questions: The patient denied to Depression and Anxiety. Denied SI or HI. Denied symptoms consistent with psychosis Sleep and Appetite: Poor sleep. She wants extra food. Objective- MSE: Alert and attentive. Orientation times three. Dressed and Groomed: Appropriately. Pleasant and cooperative. Psychomotor Activity: Normal. Speech: Normal in tone, quality, and quantity. Mood: I here to heal and get these people out of here. Affect: Expansive, elated. SI or HI: None. Perceptual disturbance: None. Thought Content: The patient mormon and grandiose delusions. No other delusions noted. Thought Process: Normal. Cognition: Intact Judgment and Insight: Poor. AIMS: Normal. Labs: No labs available. Diagnosis: Schizoaffective Disorder Plan and Recommendations: Continue current Medications. Monitor MS and side effects of medications and adjust medications accordingly. Encourage patient to take medications. Did second cert. Provide supportive psychotherapy. The patient to attend urias activities. CBC with Diff, CMP, TSH, Lipid Profile, HbA1c, EKG, Test ordered. Medication Consent with explanation of risk/benefits and side effects: Explained. The patient declined.
[2024-07-20] MEDS: OLANZapine 10 MG TAB PO PRN (15:48)
[2024-07-20 16:31] LABS: Chol/HDL Ratio 5.85 Ratio
[2024-07-21 11:36] LABS: INR 0.9 (<1.2); Prothrombin Time 9.8 sec (10.0-12.5)
--- NOTE | 2024-07-21 15:55 | P.PN ---
Progress Note - Text Progress Note Date: 07/21/24 Follow-up Mediation Review Chief Complaint: I am going to tell promotional advertising assistant Ahmet that president Paz has freed me. Subjective: The patient noted that she saw an meat team member yesterday. She wants to tell the promotional advertising assistant that she is not to attend [facility] and take her medications any more Except her Levothyroxine 200 mcg in the morning and Ativan 2 mg daily and Trazodone 200mg daily. She remains religiously preoccupied. The patient is attending the groups. The participation is good. The interaction with staff and peers is fair. The patient is not compliant with treatment recommendations. Leading questions: The patient denied to Depression and Anxiety. Denied SI or HI. Denied symptoms consistent with psychosis Sleep and Appetite: Poor sleep. She wants extra food. Objective- MSE: Alert and attentive. Orientation times three. Dressed and Groomed: Appropriately. Pleasant and cooperative. Psychomotor Activity: Normal. Speech: Normal in tone, quality, and quantity. Mood: Good Affect: Expansive, elated. SI or HI: None. Perceptual disturbance: None. Thought Content: The patient taoism and grandiose delusions. No other delusions noted. Thought Process: Normal. Cognition: Intact Judgment and Insight: Poor. AIMS: Normal. Labs: No labs available. Diagnosis: Schizoaffective Disorder Plan and Recommendations: Continue current Medications. Monitor MS and side effects of medications and adjust medications accordingly. Encourage patient to take medications. Did sec ond cert. Provide supportive psychotherapy. The patient to attend urias activities. Medication Consent with explanation of risk/benefits and side effects: Explained. The patient declined.
[2024-07-21] MEDS: WARFARIN 10 MG TAB PO ONE (16:51)
[2024-07-22 11:00] LABS: Glucose,Whole Blood 300 mg/dL (70-110)
[2024-07-22 12:16] LABS: INR 0.9 (<1.2); Prothrombin Time 9.9 sec (10.0-12.5)
--- NOTE | 2024-07-22 15:13 | P.PN ---
Progress Note - Text Progress Note Date: 07/22/24 Follow-up Mediation Review Chief Complaint: I dont need medications. Subjective: The patient stated, I dont need medications, you healed me. The reiterated that she is going to tell the window framer that she does not need a guardian and does not need medications because she is healed. She had no other complaints. The patient is irregular in attending groups. The participation is good. The interaction with staff and peers is fair. The patient is not compliant with treatment recommendations. Leading questions: The patient denied to Depression and Anxiety. Denied SI or HI. Denied symptoms consistent with psychosis Sleep and Appetite: Fine. Objective- MSE: Alert and attentive. Orientation times three. Dressed and Groomed: Appropriately. Pleasant and cooperative. Psychomotor Activity: Normal. Speech: Normal in tone, quality, and quantity. Mood: Good Affect: Expansive, elated. SI or HI: None. Perceptual disturbance: None. Thought Content: The patient buddhist and grandiose delusions. No other delusions noted. Thought Process: Normal. Cognition: Intact Judgment and Insight: Poor. AIMS: Normal. Labs: No labs available. Diagnosis: Schizoaffective Disorder Plan and Recommendations: Continue current Medications. Monitor MS and side effects of medications and adjust medications accordingly. Encourage patient to take medications. Did second cert. Provide supportive psychotherapy. The patient to attend urias activities. Medication Consent with explanation of risk/benefits and side effects: Explained. The patient declined.
[2024-07-22] MEDS: WARFARIN 10 MG TAB PO ONE (15:19)
[2024-07-23] MEDS ORDERED: OLANZapine 10 MG VIAL IM PRN (12:57)
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
[2024-07-23] MEDS: ACETAMINOPHEN TAB 325 MG TAB PO PRN (21:55)
[2024-07-24] MEDS: WARFARIN 10 MG TAB PO ONE ×2 (00:09→18:51)
[2024-07-24] MEDS: LORazepam 2 MG/ML INJ IM PRN (06:37)
--- NOTE | 2024-07-24 14:04 | P.PN ---
Progress Note - Text Progress Note Date: 07/24/24 Follow-up Mediation Review Chief Complaint: I am cured, I dont need any medications. Subjective: The patient continues to refuse medications. She is irregular in doing her BS checks. She stated that she feels fine and is healed. According to the staff is intrusive and can be imposing on other patients. She trying to bless other patients. She was redirected and counseled by the staff. She has been receiving prn Ativan. Suggested give Zyprexa oral/ IM due to severe psychosis causing her to be disrupting and intruding on other patients. The patient continues to refuse medications. The patient is irregular in attending groups. The participation is good. The interaction with staff and peers is fair. The patient is not compliant with treatment recommendations. Leading questions: The patient denied to Depression and Anxiety. Denied SI or HI. Denied symptoms consistent with psychosis Sleep and Appetite: Fine. Objective- MSE: Alert and attentive. Orientation times three. Dressed and Groomed: Appropriately. Uncooperative and hostile at times Psychomotor Activity: Normal. Speech: Normal in tone, quality, and quantity. Mood: Good Affect: Expansive, elated, hostile. SI or HI: None. Perceptual disturbance: None. Thought Content: The patient has latter day and grandiose delusions. No other delusions noted. Thought Process: Normal. Cognition: Intact Judgment and Insight: Poor. AIMS: Normal. Labs: Reviewed lab results with patient. Diagnosis: Schizoaffective Disorder Plan and Recommendations: Continue current Medications. Monitor MS and side effects of medications and adjust medications accordingly. Encourage patient to take medications. The samy ent took her blood pressure medication this morning. The patient to attend urias activities as tolerated. Medication Consent with explanation of risk/benefits and side effects: Explained. The patient declined.
[2024-07-24 15:45] LABS: Glucose,Whole Blood 164 mg/dL (70-110)
[2024-07-25] MEDS: WARFARIN 10 MG TAB PO ONE (17:26)
--- NOTE | 2024-07-25 17:54 | P.PN ---
Progress Note - Text Progress Note Date: 07/25/24 Interval history: Patient was seen at the bedside and was agreeable to speak with automatic typewriter inspector. When asked what brought her into the hospital she shared "it was a fluke." She then went on to share a story that was tangential and difficult to follow about the circumstances leading up to her admission. She attributed it to a misunderstanding between herself and police. She reports her mood is "great". She has been getting rest and participating in activities on the unit. She shared that she goes to all the groups. She describes herself as a person of keiry and feels that this has healed her diabetes. She does continue to endorse frequent urination and excessive thirst. She notes that at times she has required a as needed medication to help her feel more calm; she finds this generally helpful. At this time patient denies any suicidal or homicidal ideations intent or plan. Denies any auditory or visual hallucinations. Patient denies any side effects from the medications and has been compliant with meds. Mental status exam: General Appearance: Patient appears to be stated age is alert, directable, and cooperative. Behavior: No agitated behavior. Patient is calm and directable Speech: Patient's speech is fluent and nonpressured. Mood/Affect: Mood is "great", affect is congruent and euthymic. Suicidality/Homicidality: Patient denies having any suicidal or homicidal ideation intent or plan. Perceptions: Patient denies any auditory or visual hallucinations. Though content/process: There is no evidence of any delusional thought content and thought process is linear and goal-directed. Memory and concentration: AOX3, grossly intact for the purposes of this session Judgment and insight: poor; she has no insight about her condition or need for treatment Assessment/Plan: Continue with current diagnosis: schizoaffective disorder Patient continues to meet criteria for inpatient psychiatric admission for symptom stabilization and safety. Patient will be maintained on current psychotropic medication regimen. Monitor for medication compliance and for any psychotropic medication side effects. Will continue to monitor ongoing response to treatment. Encouraged participation in milieu.
[2024-07-26] MEDS: WARFARIN 10 MG TAB PO ONE (18:12)
--- NOTE | 2024-07-26 19:11 | P.PN ---
Progress Note - Text Progress Note Date: 07/26/24 Interval history: Patient was seen at the bedside. She was resting and was amenable to a visit. Described her mood as "okay". She inquired about whether she could have more Ativan prescribed as she has found this medication helpful in the past. She also asked if she could have a higher dose of trazodone, because there are "a lot of sick people and I cannot rest". Of note she did refuse last night's dose of trazodone. She went on to say that there have been challenges engaging with other patients who are bothered by her activity and engagement. She said that she prays and is baptism and others find this bothersome. At this time patient denies any suicidal or homicidal ideations intent or plan. Denies any auditory or visual hallucinations. Patient denies any side effects from the medications and has been compliant with meds. Mental status exam: General Appearance: Patient appears to be stated age is alert, directable, and cooperative. Behavior: No agitated behavior. Patient is calm and directable Speech: Patient's speech is fluent and nonpressured. Mood/Affect: Mood is "okay", affect is congruent and constricted. Suicidality/Homicidality: Patient denies having any suicidal or homicidal ideation intent or plan. Perceptions: Patient denies any auditory or visual hallucinations. Though content/process: There is some evidence of impaired perception; thought process is linear and goal-directed. Memory and concentration: AOX3, grossly intact for the purposes of this session Judgment and insight: poor; she has very limited insight about her condition or need for treatment Assessment/Plan: Continue with current diagnosis: schizoaffective disorder Patient continues to meet criteria for inpatient psychiatric admission for symptom stabilization and safety. Patient will be maintained on current psychotropic medication regimen. She has trazodone ordered and did not take it last night. Monitor for medication compliance and for any psychotropic medication side effects. Will continue to monitor ongoing response to treatment. Encouraged participation in milieu.
--- NOTE | 2024-07-27 12:14 | P.PN ---
Progress Note - Text Progress Note Date: 07/27/24 Interval History: Patient was seen resting in bed and was agreeable to speak with production underwriter. She s hared her frustration about not having enough to eat and the carbohydrate restrictions that are included in her diet plan. Additionally she is noticing some tension with other patients and feels that she is here to "help them" and this has not been well-received. Of note she is often heard loudly singing in the hallway something that she feels is healing for other patients on the unit however they tend to find this to be a disturbance. Additionally she showed her "prayer cloth" and was reportedly trying to place it around other patients last evening which they did not appreciate. Upon approaching her room she was noted to have arranged paper towels in the shape of the cross on the floor at the threshold and had written on her door a sign of a cross and additionally had another paper towel crawls on the floor of her bathroom. 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 She expressed her frustration that other patients walking the halls are disruptive for her and she finds it difficult to sleep during the day. When encouraged to close her door to block out other noise she said that she needs her door to be open so that others can be healed as they walk by. At this time patient denies any suicidal or homical ideations, intent or plan. Patient denies any auditory or visual hallucinations. Patient denies any side effects from the medications and has been compliant with meds. Mental status exam: General Appearance: Patient appears to be stated age is alert, directable, and cooperative. Behavior: No agitated behavior. Patient is mildly irritable but directable Speech: Patient's speech is fluent and nonpressured. Mood/Affect: Mood is frustrated, affect is congruent and constricted. Suicidality/Homicidality: Patient denies having any suicidal or homicidal ideation intent or plan. Perceptions: Patient denies any auditory or visual hallucinations. Though content/process: There is significant evidence of impaired perception; thought process is largely tangential and religiously preoccupied. Memory and concentration: AOX3, grossly intact for the purposes of this session Judgment and insight: poor; she has very limited insight about her condition or need for treatment Assessment: - Schizoaffective Disorder Ms. Isaac continues to be religiously preoccupied and lacks insight into how her behavior impacts other patients. She was rather insistent on taking more Trazodone each day, but she is presently prescribed a dose consistent with her home regimen. We discussed the need to balance safety, potential for medication interactions, and her comfort. Plan: - Patient continues to meet criteria for inpatient psychiatric admission for symptom stabilization and safety. - Currently awaiting hearing on 07/29/24; did not defer. - Medications: - Continue Lurasidone 60 mg BID - Continue Trazodone 100 mg at bedtime - Lorazepam 2 mg Q6H - PRNs available for agitation or aggression - Monitor for medication compliance and for any psychotropic medication side effects. - Will continue to monitor ongoing response to treatment. - Encouraged participation in milieu. - SW engaged re: discharge planning
--- NOTE | 2024-07-29 12:32 | P.PN ---
Progress Note - Text Progress Note Date: 07/28/24 Subjective: Ms. Isaac continues to be delusional. She has methodist and grandiose delusions. She has consistently refused to take medications. Today, she stated that she has been taking all prescribed medications. She noted that the computer system is bad in the hospital and that is why it shows that she has not been taking medications. She has been intrusive, demanding and imposing. She has been having issues with other patients on the [facility]. She is redirectable but sometimes difficult. She has been refusing her medical medications. She also does not want to do lab tests. She claims to be healed from all ailments. Objective: Alert and attentive. Orientation times three. Dressed and Groomed: Appropriately. Pleasant and cooperative. Psychomotor Activity: Reduced. Speech: Normal in tone, quality, and quantity. Mood: I am good. Affect: Elated and expansive SI or HI: None. Perceptual disturbance: No a/v hallucinations noted. Thought Content: The patient has paranoid and grandiose as well methodist delusions. Thought Process: Tangential, with some loose associations. Cognition: Intact Judgment and Insight: Poor Diagnosis: Schizoaffective disorder, Bipolar type. Plan: Continue current medications. Encourage patient to take medications. Supportive therapy [facility]
--- NOTE | 2024-07-29 15:33 | P.PN ---
Progress Note - Text Progress Note Date: 07/29/24 Subjective: Ms. Isaac continues to be delusional. She has sikh and grandiose d elusions. She has consistently refused to take medications. Today, she was ordered to start taking medications. No verified home psychotropic medications were found. medications were found in the chart she stated that she took her medications after the court case. She has refused all her medications today. The nursing staff is in the process of calling the pharmacy and get the list of psychiatric medications to be ordered. She still claims to be healed from all ailments does not need medications. Objective: Alert and attentive. Orientation times three. Dressed and Groomed: Appropriately. Pleasant and cooperative. Psychomotor Activity: Reduced. Speech: Normal in tone, quality, and quantity. Mood: I am good. Affect: Elated and expansive SI or HI: None. Perceptual disturbance: No a/v hallucinations noted. Thought Content: The patient has paranoid and grandiose as well sikh delusions. Thought Process: Tangential, with some loose associations. Cognition: Intact Judgment and Insight: Poor Diagnosis: Schizoaffective disorder, Bipolar type. Plan: Continue current medications. Risperdal I mg hs. Get routine labs and EKG. Encourage patient to take medications. Supportive therapy [facility]
[2024-07-29] MEDS: risperiDONE 1 MG TAB PO SCH (20:07)
[2024-07-29] MEDS ORDERED: risperiDONE 0.5 MG TAB PO SCH (21:00)
[2024-07-30] MEDS: LURASIDONE 40 MG TAB PO SCH (09:00)
[2024-07-30] MEDS: traZODone HCL 50 MG TAB PO ONE (10:00)
[2024-07-30] MEDS: LORazepam 1 MG TAB PO STA (10:10)
--- NOTE | 2024-07-30 15:45 | P.PN ---
Progress Note - Text Progress Note Date: 07/30/24 Subjective: The patient demanding to have Trazodone and Ativan. She stated that she takes Ativan 2 mg three times a day, Trazodone twice a day and Zyprexa. She did not know the dose of Zyprexa. She was agitated, irritable and angry. She was very paranoid. She was coming out of the room yelling for more medications. She was difficult to redirect. She has paranoid, judaism, and grandiose delusions. She has been taking her medications and demanding more medications. Objective: Alert and attentive. Orientation times three. Dressed and Groomed: Appropriately. She was irritable, agitated, and disruptive. She was difficult to redirect. Psychomotor Activity: Increased. Speech: Loud. Normal in quality, and quantity. Mood: I am upset, you people are not giving my Trazodone, Ativan and Zyprexa. Affect: Elated, irritable and angry. SI or HI: None. Perceptual disturbance: Seeing body on the wall. Talking to self in her room. Thought Content: The patient has paranoid and grandiose as well judaism delusions. Thought Process: Tangential, with some loose associations. Cognition: Intact Judgment and Insight: Poor Diagnosis: Schizoaffective disorder, Bipolar type. Plan: Continue current medications. Increase Risperdal 2 mg bid. Add Trazodone 25 mg po qam. Monitor MS and side effects of medications and adjust medications accordingly. Provide supportive psychotherapy. The patient provided psychoeducation and advised The patient provided Substance abuse counseling. Smoke cessation therapy. The patient to attend urias activities. Medication Consent with explanation of risk/benefits and side effects: Explained and obtained.
[2024-07-31] MEDS: IBUPROFEN 800 MG TAB PO PRN (09:03)
--- NOTE | 2024-07-31 11:55 | P.PN ---
Progress Note - Text Progress Note Date: 07/31/24 Subjective: The patient was calm and relaxed. The patient noted feeling good. She reported sleeping goog. She was not belligerent, oppositional, or agitated today. She was not demanding any medications. She has been compliant with medications. She reported no side effects. She did demonstrate paranoia and was noted to be whispering. Sometimes, she disengaged from conversation and mumbled to herself. Objective: Alert and attentive. Orientation times three. Dressed and Groomed: Appropriately. She was pleasant and cooperative. Psychomotor Activity: Normal. Speech: Loud. Normal in quality, and quantity. Mood: I am feeling good. Affect: Anxious. SI or HI: None. Perceptual disturbance: She was noted to be mumbling to herself during the visit. Thought Content: The patient has paranoid and grandiose as well confucianist delusions. Thought Process: Circumstantial. Cognition: Intact Judgment and Insight: Poor Diagnosis: Schizoaffective disorder, Bipolar type. Plan: Continue current medications. Increase Risperdal 2mg. Depakote 125 mg po bid. Monitor MS and side effects of medications and adjust medications accordingly. Provide supportive psychotherapy. The patient provided psychoeducation and advised The patient to attend urias activities. Medication Consent with explanation of risk/benefits and side effects: Explained and obtained.
[2024-07-31] MEDS: risperiDONE 2 MG TAB PO SCH (20:16)
[2024-07-31] MEDS: DIVALPROEX SPRINKLE 125 MG CAP.SPRINK PO SCH (20:19)
[2024-08-01 07:13] LABS: INR 0.9 (<1.2); Prothrombin Time 10.4 sec (10.0-12.5)
--- NOTE | 2024-08-01 08:31 | P.PN ---
Subjective Progress Note Date: 08/01/24 Principal diagnosis: schizoaffective diagnosis schizoaffective bipolar type subjective: The patient is quite irrational she concluded that I was "father god"she said that she had taken risperidone on the past and that it had caused her to develop diabetes but Ricardo had cured her soit was okay to take it now. [place] a boat and she laid down and looked the sun for its glory because God told her to. She says she has an apartment but she doesn't have a berumen to it. She was limping and said that she had had 2 knee Replacements but that Ricardo had healed it.she did say that her appetite was fine and that she had been able to sleep okay. Her main focus was getting 2 mg of Ativan "which is also call lorazepam"3 times a day objective patient was cooperative and directable she came to the office to talk to me had reasonable eye contact but her answers didn't really make a lot of sense she did not seem to be having any side effects was not drowsy was not staff no signs of tardive dyskinesia.she does walk slowly with a limp self-care is adequate she knows she is in the hospital plan no change in medication at this time she does not seem agitated she has probably going to need an increase in antipsychotic and we will need to watch the labs that she says that it is contributed to the metabolic syndrome in the past Objective - Vital Signs Vital signs: Vital Signs Temp 97.8 F 07/30/24 06:28 Pulse 93 07/30/24 16:58 Resp 20 07/30/24 16:58 BP 121/86 07/30/24 16:58 Pulse Ox 96 07/30/24 06:28 FiO2 - Labs CBC & Chem 7: 07/20/24 11:03 07/20/24 11:03
[2024-08-01] MEDS: WARFARIN 10 MG TAB PO ONE (17:27)
[2024-08-01 20:25] LABS: Glucose,Whole Blood 237 mg/dL (70-110)
--- NOTE | 2024-08-02 07:03 | P.PN ---
Subjective Progress Note Date: 08/02/24 Principal diagnosis: schizoaffective diagnosis schizoaffective bipolar type subjective: the patient seems less irrational today. She was not delusional that I was father God. She was still a little grandiose. "The problem is I'm just too intelligent." Even if this were true it would show poor social judgment to blame all her problems on that and other people's discomfort with her intelligence.she is completely focused on wanting to get out of here.she says that she has an apartment and does not want to go back to any homes. She was control of her money back and not have a fiduciary. She was worrying about going to courtbut then went into great detail about the court hearing that she had describing the computer and who was there and what people said etc. objective patient was cooperative and directable she came to the office to talk to me had reasonable eye contact. She was somewhat emotionally labile becoming quite tearful when talking about wanting to have her identity back and be out of here. Then quickly she calm back down and was not tearful. 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 assessment: She is still quite grandiose and psychotic but does seem better so I think the medicine beginning to work plan no change in medication at this time she does not seem agitated she has probably going to need an increase in antipsychotic and we will need to watch the labs that she says that it is contributed to the metabolic syndrome in the past Objective - Vital Signs Vital signs: Vital Signs Temp 97.8 F 07/30/24 06:28 Pulse 93 07/30/24 16:58 Resp 20 07/30/24 16:58 BP 101/71 08/01/24 20:41 Pulse Ox 96 07/30/24 06:28 FiO2 - Labs CBC & Chem 7: 07/20/24 11:03 07/20/24 11:03 Labs: Abnormal Lab Results - Last 24 Hours (Table) 08/01/24 Range/Units 20:24 POC Glucose (mg/dL) 237 H (70-110) mg/dL
[2024-08-02 07:35] LABS: Glucose,Whole Blood 217 mg/dL (70-110)
[2024-08-02 07:44] LABS: INR 0.9 (<1.2); Prothrombin Time 10.2 sec (10.0-12.5)
[2024-08-02] MEDS ORDERED: WATER FOR INJECTION, STERILE 10 ML IV ONE (21:31)
[2024-08-02] MEDS: OLANZapine 10 MG VIAL IM STA (21:45)
--- NOTE | 2024-08-03 14:55 | P.PN ---
Progress Note - Text Progress Note Date: 08/03/24 Subjective: The patient was calm and relaxed and doing well. The patient refused Depakote yesterday. She noted that she refused because during the with her second child, she was forcefully given Depakote and her child was born without two fingers. She also stated that she could not feel the skin. She stated that she is not going have the same effect again. She became mild agitated and irritable but was redirected easily. The patient noted feeling good. She reported sleeping well. She was not belligerent, oppositional, or agitated. She has been compliant with most of her medications. She reported no side effects. She remains delusional. No over hallucinatory behavior noted. Objective: Alert and attentive. Orientation times three. Dressed and Groomed: Appropriately. She was pleasant and semi cooperative. Psychomotor Activity: Normal. Speech: Loud. Normal in quality, and quantity. Mood: I am feeling good. Affect: Labile and unpredictable. SI or HI: None. Perceptual disturbance: No hallucinatory behavior noted. Thought Content: The patient has paranoid and grandiose as well oriental orthodox delusions. Thought Process: Circumstantial. Cognition: Intact Judgment and Insight: Poor Diagnosis: Schizoaffective disorder, Bipolar type. Plan: Continue current medications. Increase Risperdal 2mg bid.Depakote 125 mg po bid. Monitor MS and side effects of medications and adjust medications accordingly. Provide supportive psychotherapy. The patient provided psychoeducation and advised The patient to attend urias activities. Medication Consent with explanation of risk/benefits and side effects: Explained and obtained.
[2024-08-03] MEDS: WARFARIN 10 MG TAB PO ONE (17:38)
[2024-08-03 20:03] LABS: Glucose,Whole Blood 195 mg/dL (70-110)
[2024-08-03] MEDS: risperiDONE 2 MG TAB PO SCH (20:06)
[2024-08-04 09:59] LABS: INR 0.9 (<1.2); Prothrombin Time 10.3 sec (10.0-12.5)
--- NOTE | 2024-08-04 11:49 | P.PN ---
Progress Note - Text Progress Note Date: 08/04/24 Follow-up Mediation Review Chief Complaint: I am fine, when can I go. Subjective: The patient noted that she is healed. She stated that the Clinical Coordinator ordered that she should be released and not take medications. The patient noted that her boyfriend is coming to get her and her indian blanket weaver told her that she is free. She stated that she is being held here against the court judgement. The patient refused all her medications. She was very oppositional and did not take her medications. The patient has been inconsistent taking medications. The patient reported being fine. She stated that she is cured and the court also determined the same. The patient very rigid delusional beliefs. Objective: Alert and attentive. Orientation times three. Dressed and Groomed: Appropriately. She was pleasant but at times became upset and angry. Psychomotor Activity: Normal. Speech: Loud. Normal in quality, and quantity. Mood: I am feeling good. Affect: Labile and unpredictable. SI or HI: None. Perceptual disturbance: No hallucinatory behavior noted. Thought Content: The patient has paranoid and grandiose as well anabaptism delusions. Thought Process: Circumstantial. Cognition: Intact Judgment and Insight: Poor Diagnosis: Schizoaffective disorder, Bipolar type. Plan: Continue current medications. D/C Risperdal, and Zyprexa. Initiate Prolixin 5 mg po daily. One dose stat. Prollixin 2.5 mg po q8hrs. Prolixin 2.5 mg IM q8hrs prn for agitation/refusing oral dose. Monitor MS and side effects of medications and adjust medications accordingly. Provide supportive psychotherapy. The patient provided psychoeducation and advised The patient to attend urias activities. Medication Consent with explanation of risk/benefits and side effects: Explained and obtained.
[2024-08-04 13:17] LABS: Glucose,Whole Blood 216 mg/dL (70-110)
[2024-08-04] MEDS: WARFARIN 10 MG TAB PO ONE (16:59)
[2024-08-04 17:58] LABS: Glucose,Whole Blood 232 mg/dL (70-110)
[2024-08-05 13:28] LABS: INR 0.9 (<1.2); Prothrombin Time 10.4 sec (10.0-12.5)
--- NOTE | 2024-08-05 15:58 | P.PN ---
Progress Note - Text Progress Note Date: 08/05/24 Follow-up Mediation Review Chief Complaint: I am fine. Subjective: The patient noted feeling pretty good. She was in good spirits. She has been taking her medications since yesterday. She was irregular in taking medications for last two days. She brought up no delusions of being healed, orthodox, grandiosity, or paranoia. She did have one outburst interacting with one staff member. She slept good last night. Her appetite is fine. Her interaction with staff and peers was good. Objective: Alert and attentive. Orientation times three. Dressed and Groomed: Appropriately. She was pleasant and cooperative. Psychomotor Activity: Normal. Speech: Loud. Normal in quality, and quantity. Mood: I am feeling fine. Affect: consistent with mood. SI or HI: None. Perceptual disturbance: No overt hallucinatory behavior noted. Thought Content: No overt paranoid, grandiose, temple delusions noted. No other delusional theme noted. Thought Process: Normal Cognition: Intact Judgment and Insight: Poor Diagnosis: Schizoaffective disorder, Bipolar type. Plan: Continue current medications. Increase Prolamin to 5 mg po bid. Monitor MS and side effects of medications and adjust medications accordingly. Provide supportive psychotherapy. The patient provided psychoeducation and advised The patient to attend urias activities. Medication Consent with explanation of risk/benefits and side effects: Explained and obtained.
[2024-08-05] MEDS: WARFARIN 10 MG TAB PO ONE (16:48)
[2024-08-06 12:30] LABS: INR 1.1 (<1.2)
--- NOTE | 2024-08-06 15:05 | P.PN ---
Progress Note - Text Progress Note Date: 08/06/24 Follow-up Mediation Review Chief Complaint: I am fine. Subjective: The patient noted feeling pretty good. She continues to be in good spirits. She took all her medications. She brought up no delusions of being healed, jew, grandiose, or paranoid. She did have one outburst interacting with another patient last night in the dining room. She slept good last night. Her appetite is fine. Her interaction with staff and peers was good. Objective: Alert and attentive. Orientation times three. Dressed and Groomed: Appropriately. She was pleasant and cooperative. Psychomotor Activity: Normal. Speech: Loud. Normal in quality, and quantity. Mood: I am feeling fine. Affect: consistent with mood. SI or HI: None. Perceptual disturbance: No overt hallucinatory behavior noted. Thought Content: No overt paranoid, grandiose, jew delusions noted. No other delusional theme noted. Thought Process: Normal Cognition: Intact Judgment and Insight: Poor Diagnosis: Schizoaffective disorder, Bipolar type. Plan: Continue current medications. Increase Prolamin to 5 mg po daily and 10 mg hs.. Monitor MS and side effects of medications and adjust medications accordingly. Provide supportive psychotherapy. The patient provided psychoeducation and advised The patient to attend urias activities. Medication Consent with explanation of risk/benefits and side effects: Explained and obtained.
[2024-08-06] MEDS: WARFARIN 10 MG TAB PO ONE (17:57)
[2024-08-07 08:20] LABS: Glucose,Whole Blood 180 mg/dL (70-110)
[2024-08-07 10:23] LABS: INR 1.3 (<1.2); Prothrombin Time 13.8 sec (10.0-12.5)
--- NOTE | 2024-08-07 14:41 | P.PN ---
Progress Note - Text Progress Note Date: 08/07/24 Follow-up Mediation Review Chief Complaint: I am fine. Subjective: The patient stated feeling fine. She appeared in good spirits. She has taken all her medications today. The patient talked about her two boys at home. Both the boys are in late teens. 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 She took all her medications. She reported no side effects. The patient does show tremors of the right hand. The tremors after the increase of Prolamin. Discussed with patient. it. She things the tremors are probably due to her age. Added Cogentin 0.5 mg po bid to address the tremors. She brought up no delusions of being healed, yazidism, grandiose, or paranoid. According to the nursing staff, the patient did not sleep well last night. Her interaction with staff and peers was good. Objective: Alert and attentive. Orientation times three. Dressed and Groomed: Appropriately. She was pleasant and cooperative. Psychomotor Activity: Normal. Speech: Loud. Normal in quality, and quantity. Mood: I am feeling fine. Affect: consistent with mood. SI or HI: None. Perceptual disturbance: No overt hallucinatory behavior noted. Thought Content: No overt paranoid, grandiose, yazidism delusions noted. No other delusional theme noted. Thought Process: Normal Cognition: Intact Judgment and Insight: Poor Diagnosis: Schizoaffective disorder, Bipolar type. Plan: Continue current medications. Add Cogentin 0.5 mg po bid. Monitor MS and side effects of medications and adjust medications accordingly. Provide supportive psychotherapy. The patient provided psychoeducation and advised The patient to attend urias activities. Medication Consent with explanation of risk/benefits and side effects: Explained and obtained.
[2024-08-07] MEDS: WARFARIN 10 MG TAB PO ONE (16:18)
[2024-08-07] MEDS ORDERED: BENZTROPINE MESYLATE 0.5 MG TAB PO SCH (21:00)
--- NOTE | 2024-08-08 10:04 | P.PN ---
Progress Note - Text Progress Note Date: 08/08/24 Interval History: Patient was seen bedside this AM. She appears sedated and tired this morning. She was not answering questions appropriately and had her eyes closed. She was sitting on the toilet, tremulous and given staff help with getting herself onto the bed. She refused all of her morning medications. She was muttering vaguely about Ricardo and after moving to the bed, she was resting comfortably. Vital signs stable. She said she had some trouble sleeping last night and was encouraged to rest. She did not eat breakfast today but ate meals yesterday. At this time patient denies any suicidal or homicidal ideations, intent or plan. Patient denies any auditory, visual hallucinations and denies any paranoia or delusions. Patient denies any side effects from the medications and has been compliant with meds. Denies dizziness or lightheadedness. Vital Signs Temp 98.2 F 08/08/24 09:31 Pulse 76 08/08/24 09:31 Resp 16 08/08/24 09:31 BP 135/82 08/08/24 09:31 Pulse Ox 98 08/08/24 09:31 FiO2 Mental Status Exam: General Appearance: Patient appears to be stated age is somnolent, disheveled Behavior: Resting tremor Speech: Patient's speech is muttered, difficult to discern Mood/Affect: Mood is sad, affect is tearful briefly Suicidality/Homicidality: Patient denies having any suicidal or homicidal ideation intent or plan. Perceptions: Patient denies any visual hallucinations and denies any auditory hallucinations Though content/process: Unable to assess Memory and concentration: Seems altered and unable to process Judgment and insight: Poor Assessment Schizoaffective disorder, Bipolar type. Plan: Patient continues to meet criteria for inpatient psychiatric admission for symptom stabilization and safety. Monitor for medication compliance and for any psychotropic medication side effects. Will continue to monitor ongoing response to treatment. Encouraged participation in milieu. -Medications: Although it was documented that the patient be started on Cogentin, it was discontinued by ordering provider. Patient was given increased on Prolixin yesterday and was noted to have EPS. Will discontinue AM dose of Prolixin due to hypersedation and EPS while at Prolixin 15 mg total. Continue with Prolixin 10 mg qHS No Cogentin at this time, given that it has potential to worsen sedation. - IM & lab contacted to help with Warfarin dosing - Encouraging PO intake
[2024-08-08 10:48] LABS: HGB 12.1 gm/dL (11.4-16.0); MCH 30.6 pg (25.0-35.0); MCHC 35.6 g/dL (31.0-37.0); MCV 85.8 fL (80.0-100.0); Platelet Count 234 k/uL (150-450); RBC 3.96 m/uL (3.80-5.40); RDW 12.7 % (11.5-15.5); WBC 5.3 k/uL (3.8-10.6)
[2024-08-08 10:55] LABS: INR 1.4 (<1.2); Prothrombin Time 14.7 sec (10.0-12.5)
[2024-08-08 10:59] LABS: ALT 23 U/L (4-34); AST 25 U/L (14-36); African American GFR (CKD) >90 (>60 ml/min/1.73 sqM); Albumin 3.8 g/dL (3.5-5.0); Alkaline Phosphatase 69 U/L (38-126); Anion Gap 8 mmol/L; Blood Urea Nitrogen 16 mg/dL (7-17); Calcium 9.2 mg/dL (8.4-10.2); Carbon Dioxide 25 mmol/L (22-30); Chloride 103 mmol/L (98-107); Glucose 173 mg/dL (74-99); Non-African American GFR(CKD) >90 (>60 ml/min/1.73 sqM); Potassium 4.5 mmol/L (3.5-5.1); Sodium 136 mmol/L (137-145); Total Bilirubin 0.5 mg/dL (0.2-1.3); Total Protein 5.9 g/dL (6.3-8.2)
[2024-08-08] MEDS: WARFARIN 10 MG TAB PO ONE (17:13)
[2024-08-09 08:00] LABS: Glucose,Whole Blood 207 mg/dL (70-110)
[2024-08-09 11:26] LABS: INR 1.4 (<1.2); Prothrombin Time 14.2 sec (10.0-12.5)
--- NOTE | 2024-08-09 11:57 | P.PN ---
Progress Note - Text Progress Note Date: 08/09/24 Interval History: Patient was seen bedside this AM. She appears significantly better today. She was smiling appropriately and pleasant to interaction. she states that she is doing "good ". She denies any depression or elevated mood today. She was encouraged to participate in groups. She endorses good sleep with current medication regimen. Discussed the discontinuation of morning Prolixin and patient was agreeable with this. She endorses good appetite today and appears to be interacting on the milieu. At this time patient denies any suicidal or homicidal ideations, intent or plan. Patient denies any auditory, visual hallucinations and denies any paranoia or delusions. Patient denies any side effects from the medications and has been compliant with meds. Denies dizziness or lightheadedness. Vital Signs Temp 97.3 F L 08/09/24 08:46 Pulse 88 08/09/24 08:46 Resp 18 08/09/24 08:46 BP 147/92 08/09/24 08:46 Pulse Ox 95 08/09/24 08:46 FiO2 Mental Status Exam: General Appearance: Patient appears to be stated age is alert, good hygiene Behavior: No tremors, calm, cooperative Speech: Patient's speech is clear and regular rate Mood/Affect: Mood is euthymic, affect is congruent Suicidality/Homicidality: Patient denies having any suicidal or homicidal ideation intent or plan. Perceptions: Patient denies any visual hallucinations and denies any auditory hallucinations Though content/process: Linear and goal-directed Memory and concentration: Grossly oriented to interview. Good concentration to interview Judgment and insight: Poor Assessment Schizoaffective disorder, Bipolar type. Plan: Patient continues to meet criteria for inpatient psychiatric admission for symptom stabilization and safety. Monitor for medication compliance and for any psychotropic medication side effects. Will continue to monitor ongoing response to treatment. Encouraged participation in milieu. -Medications: Continue with Prolixin 10 mg qHS. Not to be increased to 15 mg daily due to hypersedation at this dose. No Cogentin at this time - not indicated - IM & lab contacted to help with Warfarin dosing
[2024-08-09] MEDS: LOPERAMIDE 2 MG CAP PO PRN (15:35)
[2024-08-09] MEDS: WARFARIN 10 MG TAB PO ONE (17:44)
[2024-08-10 08:02] LABS: Glucose,Whole Blood 213 mg/dL (70-110)
[2024-08-10 10:53] LABS: INR 1.5 (<1.2); Prothrombin Time 15.3 sec (10.0-12.5)
--- NOTE | 2024-08-10 16:27 | P.PN ---
Progress Note - Text Progress Note Date: 08/10/24 Follow-up Mediation Review Chief Complaint: I have Dr. Victoria now. Subjective: The patient stated was noted to be be talking to herself. When asked how is she doing, the patient did not look at me and passed by with noticing me. She was in her thoughts. Later she came back and stated that she is no more my patient. During this time, she was noted to be talking to herself. One of the staff stated that the patient was agitated and argumentative earlier in the morning. The patients Prolixin was decreased yesterday for unclear reasons. The patient does have tremors and had experienced tremulousness on Prolixin in the past. Will consider slowly reducing the Prolixin and add Saphris. This was discussed with the patient later. She understood and consented. She asked me to pray the God Father. Later she started addressing me as God Father. She also stated that she gets tremors when she gets electrical impulses from touching anything metallic at the nursing desk. She feels this send impulses to her left knee joint and then to her hands causing tremors. The patient is mostly compliant with medications. No side effects noted except tremors of both hands. Objective: Alert and attentive. Orientation times three. Dressed and Groomed: Appropriately. She was pleasant and cooperative. Psychomotor Activity: Normal. Speech: Loud. Normal in quality, and quantity. Mood: I am feeling fine. Affect: consistent with mood. SI or HI: None. Perceptual disturbance: No overt hallucinatory behavior noted. Thought Content: No overt paranoid, grandiose, yazdanism delusions noted. No other delusional theme noted. Thought Process: Normal Cognition: Intact Judgment and Insight: Poor Diagnosis: Schizoaffective disorder, Bipolar type. Plan: Continue current medications. Add Saphris 5 mg po qhs. Monitor MS and side effects of medications and adjust medications accordingly. Provide supportive psychotherapy. The patient provided psychoeducation and advised The patient to attend urias activities. Medication Consent with explanation of risk/benefits and side effects: Explained and obtained.
[2024-08-10] MEDS: WARFARIN 10 MG TAB PO ONE (17:23)
[2024-08-10] MEDS: flUPHENAZine 2.5 MG/ML (MDV) 10 ML VIAL IM PRN (22:11)
[2024-08-10] MEDS: ASENAPINE 5 MG TAB SUBLINGUAL SCH (22:17)
[2024-08-11 07:41] LABS: Glucose,Whole Blood 195 mg/dL (70-110)
[2024-08-11 11:00] LABS: INR 1.4 (<1.2); Prothrombin Time 14.8 sec (10.0-12.5)
--- NOTE | 2024-08-11 13:07 | P.PN ---
Progress Note - Text Progress Note Date: 08/11/24 Follow-up Mediation Review Chief Complaint: I took my Saphris last night. Subjective: The patient stated that she took her Saphris but refused Prolixin. She took all her other medications. The patient remains very psychotic and get excited and loud easily. She stated that she has electric under the floor in her room and being electrocuted. Later, the patient noted that it is under the floor everywhere and should not be here, she is healed. Discussed with patient to be compliant with medications. Informed that Saphris to be increased today and the Prolamin will be decreased. She was also informed that Loxitane will be added to the Saphris. The patient understood and consented. The patient is mostly compliant with medications but tends to refuse sometimes. Her tremors are a little better today Objective: Alert and attentive. Orientation times three. Dressed and Groomed: Appropriately. She was pleasant and cooperative. Psychomotor Activity: Normal. Speech: Loud. Normal in quality, and quantity. Mood: I am feeling fine. Affect: consistent with mood. SI or HI: None. Perceptual disturbance: The patient has been having auditory hallucinations. She talks to herself Thought Content: The patient has paranoid and taoist delusions. No other delusional theme noted. Thought Process: Normal Cognition: Intact Judgment and Insight: Poor Diagnosis: Schizoaffective disorder, Bipolar type. Plan: Continue current medications. Increase Saphris 5 mg po bid. Decrease Prolixin to 5 mg po qhs. Monitor MS and side effects of medications and adjust medications accordingly. Provide supportive psychotherapy. The patient provided psychoeducation and advised The patient to attend urias activities. Medication Consent with explanation of risk/benefits and side effects: Explained and obtained.
[2024-08-11] MEDS: WARFARIN 2.5 MG TAB PO ONE (17:29)
[2024-08-11] MEDS: WARFARIN 10 MG TAB PO ONE (17:29)
[2024-08-11] MEDS: ASENAPINE 5 MG TAB SUBLINGUAL SCH (20:35)
[2024-08-12 07:43] LABS: Glucose,Whole Blood 176 mg/dL (70-110)
[2024-08-12] MEDS: PROPRANOLOL 10 MG TAB PO SCH (09:05)
[2024-08-12] MEDS: LOXAPINE SUCCINATE 5 MG PO ONE (12:19)
[2024-08-12] MEDS ORDERED: OLANZapine 5 MG TAB PO PRN (12:19)
[2024-08-12] MEDS: OLANZapine 10 MG VIAL IM PRN (12:52)
--- NOTE | 2024-08-12 16:44 | P.PN ---
Progress Note - Text Progress Note Date: 08/12/24 Follow-up Mediation Review Chief Complaint: I took Trazodone. Subjective: The patient did not take her medications this morning except Hydralazine. The patient noted that she has healed herself claiming to be Father Ricardo Vivas himself. The patient has refused to breakfast to She is lying in her bed with eyes closed. The patient was approached again but she stated that she is not going to take any medications because God Father has told her. The patient intermittently mules to herself. She not engages in conversation. She is not hostile or agitated but has been oppositional and has spent most of the morning in her room. The patient later refused to take Loxepine. The nursing staff notice urine smell in her bed. The patient has been rapidly decompensating since decrease of Prolamin. She will be tapered off today. She is very sensitive to high potency antipsychotics. She has very bad Tremors. Her prn Prolixin is changed to Zyprexa. She will get injectable Zyprexa if she refuses oral antipsychotics. She is started on Saphris and Loxepine to give benefit of both medications and keep the dose of Loxepine less to avoid EPS. The patient is refusing all her medications. She refused to eat this morning. Objective: Alert and attentive. Orientation times three. Dressed and Groomed: Appropriately. She was pleasant and cooperative. Psychomotor Activity: Normal. Speech: Loud. Normal in quality, and quantity. Mood: I am healed. Affect: Elated. SI or HI: None. Perceptual disturbance: The patient has been having auditory hallucinations. She talks to herself Thought Content: The patient has paranoid and jehovah's witness delusions. No other delusional theme noted. Thought Process: Normal Cognition: Intact Judgment and Insight: Poor Diagnosis: Schizoaffective disorder, Bipolar type. Plan: Continue current medications. D/C Prolamin. Loxepine 5 mg daily. One dose stat. Monitor MS and side effects of medications and adjust medications accordingly. Provide supportive psychotherapy. The patient provided psychoeducation and advised The patient to attend urias activities. Medication Consent with explanation of risk/benefits and side effects: Explained and obtained.
[2024-08-12] MEDS: traZODone HCL 50 MG TAB PO SCH (20:28)
[2024-08-13 07:54] LABS: Glucose,Whole Blood 203 mg/dL (70-110)
[2024-08-13] MEDS: LOXAPINE SUCCINATE 5 MG PO SCH (08:57)
[2024-08-13 10:51] LABS: INR 1.5 (<1.2); Prothrombin Time 15.3 sec (10.0-12.5)
--- NOTE | 2024-08-13 16:24 | P.PN ---
Progress Note - Text Progress Note Date: 08/13/24 Follow-up Mediation Review Chief Complaint: I am fine. Subjective: The patient stated feeling fine. She noted taking all her pills last night and today. She up and around interacting staff and peers well. The patient remains religiously preoccupied but has not been intrusive or making any inappropriate comments to peers or staff. She appeared in good spirits. No tremors were noted today. She had no complaints. The patient has been showing theses swings. She shows decline when refusing medications and then stabilizes quicky when gets back on medications. Last episode happened because she was being tapered off Prolamin. Overall, the patient is showing improvement. Will continue titrating the dose as needed. No side effects reported. The patient slep 6= hrs last night. Objective: Alert and attentive. Orientation times three. Dressed and Groomed: Appropriately. She was pleasant and cooperative. Psychomotor Activity: Normal. Speech: Loud. Normal in quality, and quantity. Mood: I am feeling fine. Affect: consistent with mood. SI or HI: None. Perceptual disturbance: No overt hallucinatory behavior noted. Thought Content: No overt paranoid, grandiose delusions noted The patient was religiously preoccupied but no delusions noted. No other delusional theme noted. Thought Process: Normal Cognition: Intact Judgment and Insight: Poor Diagnosis: Schizoaffective disorder, Bipolar type. Plan: Continue current medications. Monitor MS and side effects of medications and adjust medications accordingly. Provide supportive psychotherapy. The patient provided psychoeducation and advised The patient to attend urias activities. Medication Consent with explanation of risk/benefits and side effects: Explained and obtained.
[2024-08-13] MEDS: WARFARIN 10 MG TAB PO ONE (17:52)
[2024-08-14 11:36] LABS: INR 1.5 (<1.2); Prothrombin Time 15.7 sec (10.0-12.5)
--- NOTE | 2024-08-14 13:48 | P.PN ---
Progress Note - Text Progress Note Date: 08/14/24 Follow-up Mediation Review Chief Complaint: I am fine. Subjective: The patient took some of her medications. She has been inconsistent in taking medications She is very religiously preoccupied. She is singing loud and praying. stated feeling fine. She noted taking all her pills last night except she did not take both the pills of Saphris because it looked different from the other pill. She took Loxepine last night and this morning. No side effects reported. Objective: Alert and attentive. Orientation times three. Dressed and Groomed: Appropriately. She was pleasant and cooperative. Psychomotor Activity: Normal. Speech: Loud, Normal in quality, and quantity. Mood: I am feeling fine. Affect: Elated. SI or HI: None. Perceptual disturbance: Positive for auditory hallucinations. Thought Content: The patient is showing paranoid and uatsdin delusions with grandiosity. Thought Process: Normal Cognition: Intact Judgment and Insight: Poor Diagnosis: Schizoaffective disorder, Bipolar type. Plan: Continue current medications. Increase Loxepine to 5 mg po bid. Monitor MS and side effects of medications and adjust medications accordingly. Provide supportive psychotherapy. The patient provided psychoeducation and advised The patient to attend urias activities. Medication Consent with explanation of risk/benefits and side effects: Explained and obtained.
[2024-08-14] MEDS: WARFARIN 10 MG TAB PO ONE (17:38)
[2024-08-14] MEDS: [UNRECOGNIZED DRUG - OTHER] PO SCH (21:37)
--- NOTE | 2024-08-15 11:22 | P.PN ---
Progress Note - Text Progress Note Date: 08/15/24 Interval history: Patient was seen laying in her bed today and was directable and agreeable to speak with investigative writer. Patient was seen responding to internal stimuli before investigative writer came into the room. She claims that she is doing fairly well. She asked investigative writer if he is her new doctor. She did not appear to be endorsing any delusions or paranoia. Claims that she is tolerating the medications fairly well, denies any problems, states that she slept fairly last night has a fair appetite. At this time patient denies any suicidal or homicidal ideations intent or plan. Denies any Auditory or visual hallucinations. Patient denies any side effects from the medications and has been compliant with meds. Mental status exam: General Appearance: Patient appears to be stated age is alert, directable, and cooperative. Behavior: No agitated behavior. Patient is calm and directable, more cooperative today Speech: Patient's speech is fluent and nonpressured. Mood/Affect: Mood is improving mildly, affect is congruent and constricted. Improving mildly Suicidality/Homicidality: Patient denies having any suicidal or homicidal ideation intent or plan. Perceptions: Patient denies any auditory or visual hallucinations. Though content/process: There is no evidence of any delusional thought content and thought process is linear and goal-directed. Memory and concentration: AOX3, grossly intact for the purposes of this session Judgment and insight: Poor Assessment/Plan: Continue with current diagnosis. Patient continues to meet criteria for inpatient psychiatric admission for symptom stabilization and safety. Patient will be maintained on current psychotropic medication regimen. Monitor for medication compliance and for any psychotropic medication side effects. Will continue to monitor ongoing response to treatment. Encouraged participation in milieu.
[2024-08-15] MEDS: WARFARIN 10 MG TAB PO ONE (17:28)
[2024-08-15] MEDS: LOXAPINE SUCCINATE 5 MG PO SCH (21:02)
[2024-08-16 07:43] LABS: Glucose,Whole Blood 194 mg/dL (70-110)
[2024-08-16 14:02] LABS: INR 1.4 (<1.2); Prothrombin Time 14.6 sec (10.0-12.5)
--- NOTE | 2024-08-16 15:06 | P.PN ---
Progress Note - Text Progress Note Date: 08/16/24 Interval history: Patient was seen laying in her bed today and was directable and agreeable to speak with residential mortgage underwriter. Patient was seen responding to internal stimuli. She appears to be more awake today and more argumentative with residential mortgage underwriter. She also was endorsing some paranoia, asked residential mortgage underwriter "do even know who I am". Claims that she is tolerating the medications fairly well, denies any problems, states that she slept fairly last night has a fair appetite. At this time patient denies any suicidal or homicidal ideations intent or plan. Denies any Auditory or visual hallucinations. Patient denies any side effects from the medications and has been compliant with meds. Mental status exam: General Appearance: Patient appears to be overweight, stated age is alert, directable, and cooperative. Behavior: No agitated behavior. Patient is calm and directable, Speech: Patient's speech is fluent and nonpressured. Mood/Affect: Mood is improving mildly, affect is congruent and constricted. Improving mildly Suicidality/Homicidality: Patient denies having any suicidal or homicidal ideation intent or plan. Perceptions: Patient denies any auditory or visual hallucinations. Though content/process: There is no evidence of any delusional thought content and thought process is linear and goal-directed. Mild paranoia. Memory and concentration: AOX3, grossly intact for the purposes of this session Judgment and insight: Poor chronically Assessment/Plan: Continue with current diagnosis. Patient continues to meet criteria for inpatient psychiatric admission for symptom stabilization and safety. Patient will be maintained on current psychotropic medication regimen. Monitor for medication compliance and for any psychotropic medication side effects. Will continue to monitor ongoing response to treatment. Encouraged participation in milieu.
[2024-08-16] MEDS: WARFARIN 10 MG TAB PO ONE (20:56)
[2024-08-17 08:02] LABS: Glucose,Whole Blood 189 mg/dL (70-110)
--- NOTE | 2024-08-17 10:16 | P.PN ---
Progress Note - Text Progress Note Date: 08/17/24 Follow-up Mediation Review Chief Complaint: I am fine. Subjective: The patient remains very paranoid and refusing to take the medications. The patent noted that she was being given wrong medications and she is not suppose to take antipsychotics but take Lorazepam 10 mg, as per the court order. She has been refusing most of her medications. She has been seen actively responding to internal stimuli. She talks to herself. She has received IM Zyprexa. Will continue encouraging patient to take medications. She is not showing any side effects. Objective: Alert and attentive. Orientation times three. Dressed and Groomed: Appropriately. She was pleasant and cooperative but argumentative and oppositional Psychomotor Activity: Normal. Speech: Normal in tone, quality, and quantity. Mood: I am feeling fine. Affect: Elated and inappropriate. SI or HI: None. Perceptual disturbance: Positive for auditory hallucinations. Thought Content: The patient is showing paranoid and spiritism delusions with grandiosity. Thought Process: Normal Cognition: Intact Judgment and Insight: Poor Diagnosis: Schizoaffective disorder, Bipolar type. Plan: Continue current medications. Increase Loxepine to 10 mg po daily. Monitor MS and side effects of medications and adjust medications accordingly. Provide supportive psychotherapy. The patient provided psychoeducation and advised The patient to attend urias activities. Medication Consent with explanation of risk/benefits and side effects: Explained and obtained.
[2024-08-17] MEDS: WARFARIN 10 MG TAB PO ONE (18:22)
[2024-08-18 07:39] LABS: Glucose,Whole Blood 182 mg/dL (70-110)
[2024-08-18 09:59] LABS: INR 1.1 (<1.2)
--- NOTE | 2024-08-18 15:45 | P.PN ---
Progress Note - Text Progress Note Date: 08/18/24 Follow-up Mediation Review Chief Complaint: I have a court order to be released. Subjective: The patient was hostile and angry. She wanted to be released right away claiming there a new order from court to release her. She was accusing of concealing the document and holding her here. The patient was very argumentative. She was shown a copy of the order by staff. She seemed to clam down later. She remains very delusional and paranoid. Sometime she sings loud. She has been intrusive and demanding. However, she did take her medications last night and this morning Objective: Alert and attentive. Orientation times three. Dressed and Groomed: Appropriately. She was argumentative, oppositional, and hostile. Later, she clamed down and was pleasant. Psychomotor Activity: Normal. Speech: Normal in tone, quality, and quantity. Mood: Agitated. Affect: Elated, labile and inappropriate SI or HI: None. Perceptual disturbance: Positive for auditory hallucinations. Thought Content: The patient is showing paranoid and nondenominational delusions with grandiosity. Thought Process: Normal Cognition: Intact Judgment and Insight: Poor Diagnosis: Schizoaffective disorder, Bipolar type. Plan: Continue current medications. Increase Loxepine to 10 mg po bid.. Monitor MS and side effects of medications and adjust medications accordingly. Provide supportive psychotherapy. The patient provided psychoeducation and advised The patient to attend urias activities. Medication Consent with explanation of risk/benefits and side effects: Explained and obtained.
[2024-08-18] MEDS: WARFARIN 10 MG TAB PO ONE (22:37)
--- NOTE | 2024-08-19 15:26 | P.PN ---
Progress Note - Text Progress Note Date: 08/19/24 Follow-up Mediation Review Chief Complaint: I am doing fine. Subjective: The patient was seen in the [facility]. She was sitting alone. She was calm and relaxed. She noted that she took all her medications. She swallowed Saphris. She had no other complaints. She has not been agitated, irritable, or argumentative. As per nursing staff she was intrusive. She was going in to other patients room and ordering them. Objective: Alert and attentive. Orientation times three. Dressed and Groomed: Appropriately. She was pleasant and cooperative. Psychomotor Activity: Normal. Speech: Normal in tone, quality, and quantity. Mood: I am fine. Affect: Elated, labile and inappropriate SI or HI: None. Perceptual disturbance: Positive for auditory hallucinations. Thought Content: The patient is showing paranoid and pentecostal delusions with grandiosity. Thought Process: Normal Cognition: Intact Judgment and Insight: Poor Diagnosis: Schizoaffective disorder, Bipolar type. Plan: Continue current medications. Increase. Monitor MS and side effects of medications and adjust medications accordingly. Provide supportive psychotherapy. The patient provided psychoeducation and advised The patient to attend urias activities. Medication Consent with explanation of risk/benefits and side effects: Explained and obtained.
[2024-08-19] MEDS: WARFARIN 10 MG TAB PO ONE (18:51)
[2024-08-20 08:12] LABS: Glucose,Whole Blood 228 mg/dL (70-110)
--- NOTE | 2024-08-20 15:35 | P.PN ---
Progress Note - Text Progress Note Date: 08/20/24 Follow-up Mediation Review Chief Complaint: I am doing fine. Subjective: The patient refused all her medications this morning. She had taken her medications yesterday as per Jan. The patient was encouraged to take medications. The patient noted that she believes in Lord Ricardo Ortega and seeks his directions and not human. He has healed me. He is above all humans. She has been oppositional and defiant today. The patient remains inconsistent in taking medications. Objective: Alert and attentive. Orientation times three. Dressed and Groomed: Appropriately. She was pleasant and cooperative. Psychomotor Activity: Normal. Speech: Normal in tone, quality, and quantity. Mood: I am fine. Affect: Elated, labile and inappropriate SI or HI: None. Perceptual disturbance: Positive for auditory hallucinations. Thought Content: The patient is showing paranoid and zoroastrianism delusions with grandiosity. Thought Process: Normal Cognition: Intact Judgment and Insight: Poor Diagnosis: Schizoaffective disorder, Bipolar type. Plan: Continue current medications. Increase. Monitor MS and side effects of medications and adjust medications accordingly. Provide supportive psychotherapy. The patient provided psychoeducation and advised The patient to attend urias activities. Medication Consent with explanation of risk/benefits and side effects: Explained and obtained.
[2024-08-20] MEDS: WARFARIN 10 MG TAB PO ONE (19:58)
[2024-08-21 12:39] LABS: INR 0.9 (<1.2); Prothrombin Time 10.5 sec (10.0-12.5)
--- NOTE | 2024-08-21 15:33 | P.PN ---
Progress Note - Text Progress Note Date: 08/21/24 Follow-up Mediation Review Chief Complaint: I am doing fine. Subjective: The patient refused all her medications this morning. The patient does not want Loxepine. She wants Zyprexa injectable instead. She was very inconsistent with taking Saphris and Loxepne. The patient was informed the risk/benefits and side effects of Zyprexa, especially the diabetes. The patient understood and consented. The Saphris and Loxepine discontinued. Zyprexa 5 mg po tid with Zyprexa 5 mg im if patient refuses po. The patient has been intrusive, argumentative and oppositional. She remains religiously pre occupied and paranoid. Objective: Alert and attentive. Orientation times three. Dressed and Groomed: Appropriately. She was pleasant and cooperative. Psychomotor Activity: Normal. Speech: Normal in tone, quality, and quantity. Mood: I am fine. Affect: Elated, labile and inappropriate SI or HI: None. Perceptual disturbance: Positive for auditory hallucinations. Thought Content: The patient is showing paranoid and baptist delusions with grandiosity. Thought Process: Normal Cognition: Intact Judgment and Insight: Poor Diagnosis: Schizoaffective disorder, Bipolar type. Plan: Continue current medications. Increase. Monitor MS and side effects of medications and adjust medications accordingly. Provide supportive psychotherapy. The patient provided psychoeducation and advised The patient to attend urias activities. Medication Consent with explanation of risk/benefits and side effects: Explained and obtained.
[2024-08-21] MEDS: WARFARIN 10 MG TAB PO ONE (17:15)
[2024-08-21] MEDS: OLANZapine 5 MG TAB PO SCH (17:15)
--- NOTE | 2024-08-22 14:58 | P.PN ---
Progress Note - Text Interval history: Patient was seen [wandering the hallways] and was directable and agreeable to speak with editorial writer. patient insists that she got discharged however the paperwork got lost. She states that she is trapped in here, the records are not true, that she does not have psychosis. States that the medications are poison and she does not need medications. States "they are shooting meet with drugs to take money for the government" states that her being here is part of the government scam.. At this time patient denies any suicidal or homicidal ideations intent or plan. Denies any Auditory or visual hallucinations. Patient denies any side effects from the medications. Mental status exam: General Appearance: [Patient appears to be stated age is alert, directable, and superficiallycooperative.] Behavior: agitated Speech: Patient's speech is fluent and nonpressured. Mood/Affect: Mood is improving mildly, affect is congruent and constricted. Suicidality/Homicidality: Patient denies having any suicidal or homicidal ideation intent or plan. Perceptions: Patient denies any auditory or visual hallucinations. Though content/process: multiple delusions present Memory and concentration: AOX3, grossly intact for the purposes of this session Judgment and insight: poor Assessment/Plan: Continue with current diagnosis. Patient continues to meet criteria for inpatient psychiatric admission for symptom stabilization and safety.[Patient will be maintained on current psychotropic medication regimen.] Monitor for medication compliance and for any psychotropic medication side effects. Will continue to monitor ongoing response to treatment. Encouraged participation in milieu.
[2024-08-22] MEDS: WARFARIN 10 MG TAB PO ONE (17:44)
[2024-08-23 07:42] LABS: INR 0.9 (<1.2); Prothrombin Time 10.5 sec (10.0-12.5)
[2024-08-23 07:54] LABS: Glucose,Whole Blood 174 mg/dL (70-110)
[2024-08-23] MEDS: WARFARIN 10 MG TAB PO ONE (18:04)
--- NOTE | 2024-08-23 22:51 | P.PN ---
Progress Note - Text Interval history: Patient was seen [wandering the hallways] and was directable and agreeable to speak with lyric writer. continues to state that she does nnot need to be in the hospital.. At this time patient denies any suicidal or homicidal ideations intent or plan. Denies any Auditory or visual hallucinations. Patient denies any side effects from the medications. Mental status exam: General Appearance: [Patient appears to be stated age is alert, directable, and cooperative.] Behavior: cooperative Speech: Patient's speech is fluent and nonpressured. Mood/Affect: Mood is improving mildly, affect is congruent and constricted. Suicidality/Homicidality: Patient denies having any suicidal or homicidal ideation intent or plan. Perceptions: Patient denies any auditory or visual hallucinations. Though content/process: no delusions elicited today, goal directed Memory and concentration: AOX3, grossly intact for the purposes of this session Judgment and insight: poor Assessment/Plan: Continue with current diagnosis. Patient continues to meet criteria for inpatient psychiatric admission for symptom stabilization and safety.[Patient will be maintained on current psychotropic medication regimen.] Monitor for medication compliance and for any psychotropic medication side effects. Will continue to monitor ongoing response to treatment. Encouraged participation in milieu.
[2024-08-24 07:56] LABS: Glucose,Whole Blood 203 mg/dL (70-110)
--- NOTE | 2024-08-24 14:41 | P.PN ---
Progress Note - Text Progress Note Date: 08/24/24 Follow-up Mediation Review Chief Complaint: I am doing fine. Subjective: The patient noted that she has been discharged by the doctor over the weekend and her papers are being processed. She did not want to talk to me because the doctor over the week has taken over her case. She had no complaints. The patient has been taking Zyprexa and some of her other medications. She was guarded and mildly hostile. She reported no side effects. Objective: Alert and attentive. Orientation times three. Dressed and Groomed: Appropriately. She was pleasant and cooperative. Psychomotor Activity: Normal. Speech: Normal in tone, quality, and quantity. Mood: I am fine. Affect: Elated, labile and hostile. SI or HI: None. Perceptual disturbance: Positive for auditory hallucinations. Thought Content: The patient is showing paranoid and zoroastrianism delusions with grandiosity. Thought Process: Normal Cognition: Intact Judgment and Insight: Poor AIMS: Normal Labs: Available labs reviewed. Diagnosis: Schizoaffective disorder, Bipolar type. Plan: Continue current medications. Increase. Monitor MS and side effects of medications and adjust medications accordingly. Provide supportive psychotherapy. The patient provided psychoeducation and advised The patient to attend urias activities. Medication Consent with explanation of risk/benefits and side effects: Explained and obtained.
[2024-08-24] MEDS: WARFARIN 10 MG TAB PO ONE (18:07)
[2024-08-25 07:47] LABS: Glucose,Whole Blood 217 mg/dL (70-110)
[2024-08-25] MEDS ORDERED: OLANZapine 5 MG TAB PO PRN (10:48)
--- NOTE | 2024-08-25 15:11 | P.PN ---
Progress Note - Text Progress Note Date: 08/25/24 Follow-up Mediation Review Chief Complaint: I am doing fine. Subjective: The patient noted that she is doing fine. She took some of her medications. As per patient, she takes only those medications which are necessary for her. She had no complaints. The patient has been taking Zyprexa and some of her other medications. This afternoon, she was anxious and having difficulty in sleeping. She took extra 5 mg Zyprexa. As per nursing staff, the patient can be argumentative and oppositional. She reported no side effects. Objective: Alert and attentive. Orientation times three. Dressed and Groomed: Appropriately. She was pleasant and cooperative. Psychomotor Activity: Normal. Speech: Normal in tone, quality, and quantity. Mood: I am fine. Affect: Elated, labile and hostile. SI or HI: None. Perceptual disturbance: Positive for auditory hallucinations. Thought Content: The patient is showing paranoid and episcopal delusions with grandiosity. Thought Process: Normal Cognition: Intact Judgment and Insight: Poor AIMS: Normal Labs: Available labs reviewed. Diagnosis: Schizoaffective disorder, Bipolar type. Plan: Continue current medications. Increase. Monitor MS and side effects of medications and adjust medications accordingly. Provide supportive psychotherapy. The patient provided psychoeducation and advised The patient to attend urias activities. Medication Consent with explanation of risk/benefits and side effects: Explained and obtained.
[2024-08-25] MEDS: WARFARIN 10 MG TAB PO ONE (18:13)
[2024-08-26 08:00] LABS: Glucose,Whole Blood 173 mg/dL (70-110)
--- NOTE | 2024-08-26 15:36 | P.PN ---
Progress Note - Text Progress Note Date: 08/26/24 Follow-up Mediation Review Chief Complaint: I took all my medications. Subjective: The patient noted that she took most of her medications but refused Loxepine. The patient was informed that she is not on Loxepine. The patient was confusing Loxepine with Olanzapine. She was feisty and argumentative. The patient continues to be adamant about that the nurses were slipping Loxepine with other medications. She went through the whole order sheet of her EMR and verified each medication. The patient continues to refuse some of her medications every day. She has been taking Zyprexa regularly. She reported no side effects. She has been partially compliant with her medications. Objective: Alert and attentive. Orientation times three. Dressed and Groomed: Appropriately. She was pleasant and cooperative. Psychomotor Activity: Normal. Speech: Normal in tone, quality, and quantity. Mood: I am fine. Affect: Labile and hostile. SI or HI: None. Perceptual disturbance: Positive for auditory hallucinations. Thought Content: The patient is showing paranoid and oriental orthodox delusions with grandiosity. Thought Process: Normal Cognition: Intact Judgment and Insight: Poor AIMS: Normal Labs: Available labs reviewed. Diagnosis: Schizoaffective disorder, Bipolar type. Plan: Continue current medications. Increase. Monitor MS and side effects of medications and adjust medications accordingly. Provide supportive psychotherapy. The patient provided psychoeducation and advised The patient to attend urias activities. Medication Consent with explanation of risk/benefits and side effects: Explained and obtained.
[2024-08-26] MEDS: WARFARIN 10 MG TAB PO ONE (16:36)
[2024-08-26] MEDS: OLANZapine 10 MG TAB PO SCH (21:24)
[2024-08-27 07:09] LABS: INR 1.1 (<1.2); Prothrombin Time 12.3 sec (10.0-12.5)
[2024-08-27 08:03] LABS: Glucose,Whole Blood 224 mg/dL (70-110)
[2024-08-27 13:18] VITALS: BMI 32.9
--- NOTE | 2024-08-27 15:56 | P.PN ---
Progress Note - Text Progress Note Date: 08/27/24 Follow-up Mediation Review Chief Complaint: they gave me Zyprexa at 6 and now again. Subjective: The patient was upset and stated that she already got Zyprexa twice this morning and not going to take anymore. The patient has issues with medications every day. She gets very paranoid and argues with nursing staff. She wanted me to talk to nursing staff to clarify things The patient gently explained that she did not get Zyprexa this morning. She got upset and wanted to be discharged because she has a family to take care off. She reported no side effects. She has been partially compliant with her medications. Objective: Alert and attentive. Orientation times three. Dressed and Groomed: Appropriately. She was pleasant and cooperative. Psychomotor Activity: Normal. Speech: Normal in tone, quality, and quantity. Mood: I am upset. Affect: Labile and hostile. SI or HI: None. Perceptual disturbance: No overt hallucinations noted. Thought Content: The patient is shows paranoid and sabianist delusions with grandiosity. Thought Process: Normal Cognition: Intact Judgment and Insight: Poor AIMS: Normal Labs: Available labs reviewed. Diagnosis: Schizoaffective disorder, Bipolar type. Plan: Continue current medications. Increase. Monitor MS and side effects of medic ations and adjust medications accordingly. Provide supportive psychotherapy. The patient provided psychoeducation and advised The patient to attend urias activities. Medication Consent with explanation of risk/benefits and side effects: Explained and obtained.
[2024-08-27] MEDS: WARFARIN 10 MG TAB PO ONE (17:31)
[2024-08-28 07:44] LABS: Glucose,Whole Blood 192 mg/dL (70-110)
[2024-08-28 07:59] LABS: INR 1.3 (<1.2); Prothrombin Time 13.8 sec (10.0-12.5)
--- NOTE | 2024-08-28 11:37 | P.PN ---
Progress Note - Text Progress Note Date: 08/28/24 Interval History: Patient was seen today for psychiatric follow-up. Patient was seen today in her room agreeable to speak to entry writer. She was laying down, she was easily awoken and set up to speak to entry writer. She states that she is doing fair at this time, no complaints. She states that she has been sleeping fairly at nighttime. She was initially fairly cooperative however with time during interview she began to demonstrate fairly poor insight into her condition and treatment and also dis charge planning. She question several times why she is not being discharged, states that Dr. Siegel already put in her discharge paperwork. She also claims that she fired [facility] and they should have nothing to do with her treatment, continues to have illogical thought process and demanding. At this time patient denies any suicidal or homical ideations, intent or plan. Patient denies any auditory, visual hallucinations and denies any paranoia or delusions. Patient denies any side effects from the medications and has been compliant with meds. Mental Status Exam: General Appearance: [Patient appears to be mildly overweight, stated age is alert, directable at times. demanding.] Behavior: [Patient is calmly seated without any agitated behavior.] demanding, focused on d/c Speech: Patient's speech is fluent and nonpressured. Mood/Affect: Mood is fair, affect is congruent and constricted. Suicidality/Homicidality: Patient denies having any suicidal or homicidal ideation intent or plan. Perceptions: Patient denies any visual hallucinations [and denies any auditory hallucinations] Though content/process: [There is evidence of any delusional thought content and she has thought process paranoid and judaism delusions with grandiosity, improving Memory and concentration: AOX3, grossly intact for the purposes of this session Judgment and insight: chronically poor Assessment: Schizoaffective disorder, Bipolar type Plan: -Patient continues to meet criteria for inpatient psychiatric admission for symptom stabilization and safety. Patient was placed on a court order 07/29 -Medications: change trazodone 50mg po qhs prn for sleep, increase zyprexa 10mg daily + 20 mg qhs for psychosis/mood stabilization. consider switching to haldol if needed or adding mood stabilizer such as lithium. -When necessary Ativan and Haldol for agitation/aggression. -NRT - not needed as patient does not smoke -SW on board for discharge planning. Encouraged the patient to participate in milieu. Patient is currently on a court order as of 07/29, order expires on 01/25/25. Discharge to [facility] home when patient psychiatrically stable hopeful for next week
[2024-08-28] MEDS: OLANZapine 10 MG TAB PO SCH ×2 (20:02→20:04)
[2024-08-28] MEDS: WARFARIN 10 MG TAB PO ONE (21:04)
[2024-08-29] MEDS: PANTOPRAZOLE 40 MG TABLET PO SCH (07:45)
[2024-08-29] MEDS: FAMOTIDINE 20 MG TAB PO SCH (07:52)
[2024-08-29 07:55] LABS: Glucose,Whole Blood 195 mg/dL (70-110)
[2024-08-29 07:57] LABS: INR 1.3 (<1.2); Prothrombin Time 14.1 sec (10.0-12.5)
--- NOTE | 2024-08-29 09:41 | P.PN ---
Progress Note - Text Progress Note Date: 08/29/24 Interval history: Patient was seen laying in her bed today and was directable and agreeable to speak with senior technical writer. Patient states that she is doing "fine". She was less focused on delusions today, less agitated and focused on discharge. She was fairly calm and cooperative today. Claims that she has been taking her medications slept fairly last night has been eating well, denied any other overnight complaints. At this time patient denies any suicidal or homicidal ideations intent or plan. Denies any Auditory or visual hallucinations. Patient denies any side effects from the medications and has been compliant with meds. Mental status exam: General Appearance: Patient appears to be mildly overweight, stated age is alert, directable, and temps to be cooperative. Behavior: No agitated behavior. Patient is calm and directable Speech: Patient's speech is fluent and nonpressured. Mood/Affect: Mood is improving mildly, affect is congruent and constricted. Suicidality/Homicidality: Patient denies having any suicidal or homicidal ideation intent or plan. Perceptions: Patient denies any auditory or visual hallucinations. Though content/process: There is no evidence of any delusional thought content and thought process is linear and goal-directed. [place], focused on discharge Memory and concentration: AOX3, grossly intact for the purposes of this session Judgment and insight: improving mildly Assessment/Plan: Continue with current diagnosis. Patient continues to meet criteria for inpatient psychiatric admission for symptom stabilization and safety. Patient will be maintained on current psychotropic medication regimen. Monitor for medication compliance and for any psychotropic medication side effects. Will continue to monitor ongoing response to treatment. Encouraged participation in milieu.
[2024-08-29] MEDS: WARFARIN 10 MG TAB PO ONE (17:17)
[2024-08-29] MEDS: WARFARIN 2.5 MG TAB PO ONE (17:17)
[2024-08-29] MEDS: traZODone HCL 50 MG TAB PO PRN (21:51)
[2024-08-30 07:59] LABS: Glucose,Whole Blood 189 mg/dL (70-110)
--- NOTE | 2024-08-30 12:41 | P.PN ---
Progress Note - Text Progress Note Date: 08/30/24 Interval history: Patient was seen laying in her bed today and was directable and agreeable to speak with technical publications writer. Patient appears to have improvement in her affect today. She was less irritable with technical publications writer, more cooperative. She claims that she is reading the Bible because it Saturday. She was less focused on delusions today, continues to be fairly focused on discharge. She was fairly calm and cooperative today. Claims that she has been taking her medications slept fairly last night has been eating well, denied any other overnight complaints. At this time patient denies any suicidal or homicidal ideations intent or plan. Denies any Auditory or visual hallucinations. Patient denies any side effects from the medications and has been compliant with meds. Mental status exam: General Appearance: Patient appears to be mildly overweight, stated age is alert, directable, and temps to be cooperative. Behavior: No agitated behavior. Patient is calm and directable. More pleasant today Speech: Patient's speech is fluent and nonpressured. Mood/Affect: Mood is improving mildly, affect is congruent and constricted. Suicidality/Homicidality: Patient denies having any suicidal or homicidal ideation intent or plan. Perceptions: Patient denies any auditory or visual hallucinations. Though content/process: There is no evidence of any delusional thought content and thought process is linear and goal-directed. [place], focused on discharge Memory and concentration: AOX3, grossly intact for the purposes of this session Judgment and insight: improving mildly Assessment/Plan: Continue with current diagnosis. Patient continues to meet criteria for inpatient psychiatric admission for symptom stabilization and safety. Patient will be maintained on current psychotropic medication regimen. Monitor for medication compliance and for any psychotropic medication side effects. Will continue to monitor ongoing response to treatment. Encouraged participation in milieu.
[2024-08-30] MEDS: WARFARIN 10 MG TAB PO ONE (16:05)
[2024-08-31 07:58] LABS: Glucose,Whole Blood 173 mg/dL (70-110)
[2024-08-31 10:16] LABS: INR 1.4 (<1.2); Prothrombin Time 14.7 sec (10.0-12.5)
--- NOTE | 2024-08-31 12:28 | P.PN ---
Progress Note - Text Progress Note Date: 08/31/24 Interval History: Patient was seen today for psychiatric follow-up. Patient was seen today in her room agreeable to speak to conventional mortgage underwriter in the office. She states that she is doing "really well" today. She states that she is getting really good sleep. Patient is less argumentative today. Awning Hanger explained to the patient that she will be discharged to the [facility] tomorrow or Saturday. Patient agreeable. Patient claims her appetite is good. Patient offered no complaints. At this time patient denies any suicidal or homicidal ideations, intent or plan. Patient denies any auditory, visual hallucinations and denies any paranoia or delusions. Patient denies any side effects from the medications and has been compliant with meds. Mental Status Exam: General Appearance: [Patient appears to be mildly overweight, stated age is alert, directable . Cooperative. Dressed casually Behavior: Patient is calmly seated without any agitated behavior. Speech: Patient's speech is fluent and nonpressured. Mood/Affect: Mood is "really well", affect is congruent and constricted. improving Suicidality/Homicidality: Patient denies having any suicidal or homicidal ideation intent or plan. Perceptions: Patient denies any visual hallucinations [and denies any auditory hallucinations] Though content/process: [There is no evidence of any delusional thought content and she has thought process is improving Memory and concentration: AOX3, grossly intact for the purposes of this session Judgment and insight: chronically poor Assessment: Schizo affective disorder, Bipolar type Plan: -Patient continues to meet criteria for inpatient psychiatric admission for symptom stabilization and safety. Patient was placed on a court order 07/29 -Medications: trazodone 50mg po qhs prn for sleep, zyprexa 10mg daily + 20 mg qhs for psychosis/mood stabilization. -When necessary Ativan and Haldol for agitation/aggression. -NRT - not needed as patient does not smoke -SW on board for discharge planning. Encouraged the patient to participate in milieu. Patient is currently on a court order as of 07/29, order expires on 01/25/25. Discharge to [facility] tomorrow or Saturday
[2024-08-31] MEDS: WARFARIN 10 MG TAB PO ONE (17:42)
[2024-09-01 09:40] LABS: Glucose,Whole Blood 273 mg/dL (70-110)
--- NOTE | 2024-09-01 11:26 | P.PN ---
Progress Note - Text Progress Note Date: 09/01/24 Interval History: Patient was seen today for psychiatric follow-up. Patient was seen today and agreeable to speak to freelance copywriter in the office. She states that she is doing very good today. She is questioning about her medications, and discharge. Assembly Machine Feeder explained to the patient that we are waiting for the ACT team to come see her. Patient verbalized understanding. Patient claims her appetite is good. Patient offered no complaints. Assembly Machine Feeder is having nursing staff reach out to [facility] to discuss high blood glucose. At this time patient denies any suicidal or homicidal ideations, intent or plan. Patient denies any auditory, visual hallucinations and denies any paranoia or delusions. Patient denies any side effects from the medications and has been compliant with meds. Mental Status Exam: General Appearance: Patient appears to be mildly overweight, stated age is alert, directable . Cooperative. Dressed casually Behavior: Patient is calmly seated without any agitated behavior. Speech: Patient's speech is fluent and nonpressured. Mood/Affect: Mood is "very good", affect is congruent and constricted. improving Suicidality/Homicidality: Patient denies having any suicidal or homicidal ideation intent or plan. Perceptions: Patient denies any visual hallucinations and denies any auditory hallucinations Though content/process: There is no evidence of any delusional thought content and she has thought process is improving Memory and concentration: AOX3, grossly intact for the purposes of this session Judgment and insight: chronically poor, mildly improving Assessment: Schizo affective disorder, Bipolar type Plan: -Patient continues to meet criteria for inpatient psychiatric admission for symptom stabilization and safety. Patient was placed on a court order 07/29 -Medications: trazodone 50mg po qhs prn for sleep, zyprexa 10mg daily + 20 mg qhs for psychosis/mood stabilization. -When necessary Ativan and Haldol for agitation/aggression. -NRT - not needed as patient does not smoke -SW on board for discharge planning. Encouraged the patient to participate in milieu. Patient is currently on a court order as of 07/29, order expires on 01/25/25. Discharge to [facility] after ACT team comes to see her, likely tomorrow.
[2024-09-01] MEDS: WARFARIN 10 MG TAB PO ONE (18:43)
[2024-09-01] MEDS: metFORMIN 500 MG TAB PO SCH (21:59)
--- NOTE | 2024-09-02 10:31 | P.PN ---
Progress Note - Text Progress Note Date: 09/02/24 Interval History: Patient was seen today for psychiatric follow-up. Patient was seen today and agreeable to speak to scenario writer in the office. She states that she is doing very well today. Patient is somewhat irritable today. She has been refusing some of her medications, but states that she was never called to the medication window. Nursing notes state that she refused. She states ACT team came and seen her yesterday. Patient claims her appetite is good. She states she slept well. Patient offered no complaints. Armature Bander is having nursing staff reach out to [facility] to discuss high blood glucose. At this time patient denies any suicidal or homicidal ideations, intent or plan. Patient denies any auditory, visual hallucinations and denies any paranoia or delusions. Patient denies any side effects from the medications and has been compliant with meds. Mental Status Exam: General Appearance: Patient appears to be mildly overweight, stated age is alert, directable. Cooperative. Dressed casually Behavior: Patient is calmly seated without any agitated behavior. Speech: Patient's speech is fluent and nonpressured. Mood/Affect: Mood is "very good", affect is congruent and constricted. improving Suicidality/Homicidality: Patient denies having any suicidal or homicidal ideation intent or plan. Perceptions: Patient denies any visual hallucinations and denies any auditory hallucinations Though content/process: There is no evidence of any delusional thought content and she has thought process is improving Memory and concentration: AOX3, grossly intact for the purposes of this session Judgment and insight: chronically poor, mildly improving Assessment: Schizo affective disorder, Bipolar type Plan: -Patient continues to meet criteria for inpatient psychiatric admission for symptom stabilization and safety. Patient was placed on a court order 07/29 -Medications: trazodone 50mg po qhs prn for sleep, zyprexa 10mg daily + 20 mg qhs for psychosis/mood stabilization. -When necessary Ativan and Haldol for agitation/aggression. -NRT - not needed as patient does not smoke -SW on board for discharge planning. Encouraged the patient to participate in milieu. Patient is currently on a court order as of 07/29, order expires on 01/25/25. Discharge to [facility] after ACT team comes to see her, hopeful for tomorrow.
[2024-09-02 12:36] VITALS: RESP 20
[2024-09-02] MEDS: WARFARIN 10 MG TAB PO ONE (17:36)
[2024-09-03 07:38] LABS: Glucose,Whole Blood 182 mg/dL (70-110)
[2024-09-03 08:30] LABS: INR 1.5 (<1.2); Prothrombin Time 15.2 sec (10.0-12.5)
[2024-09-03 08:58] VITALS: BP 106/72; PULSE 104; TEMP 97.1
--- NOTE | 2024-09-03 10:18 | P.DS ---
Providers Date of admission: 07/18/24 09:55 Expected date of discharge: 09/03/24 Attending physician: Vinh Victoria MD Consults: 07/18/24 16:31 Consult Physician Routine Consulting Provider: Ruperto Sutton Consult Reason/Comments: medical management Do you want consulting provider notified?: Already Contacted Primary care physician: Stated None - Discharge Diagnosis(es) (1) Schizoaffective disorder, bipolar type Current Visit: Yes Status: Acute Priority: High Hospital Course: Admission HPI: Admission note was completed by Dr Nava "This is a 64-year-old female who is currently hospitalized with acute psychosis Patient is a poor historian and is unable to give any details No other collateral information is available at this time An attempt was made to assess the patient where she reports that she has been here for 3 months Patient states that she is not having any issues or problems and she does not know as to why she is here Patient continues to stare and does not give any further answers She remains unreliable historian No other details available at this time" Hospital course: Upon admission to the unit patient was admitted involuntarily on a petition and certificate and a second certificate was completed and faxed with the courts. Patient ended up being placed on a active court order for mental health treatment on 07/29. Patient was initially bizarre psychotic impulsive however at time and treatment she eventually got along well with other patients on the unit and followed unit protocol. Patient was compliant with the medications and denied any side effects throughout hospital course. Patient was started on Zyprexa increased to dose of 10 mg daily +20 mg nightly for psychosis/mood stabilization, trazodone 50 mg nightly as needed for sleep. Patient spoke of her stressors and engaged in therapy both group and individual. Patient was also seen by medical team for history and physical exam. Throughout the course of the hospitalization patient gradually improved with regards to mood, anxiety, psychosis, mood stabilization, sleep and returned back to their baseline level of functioning. On the day of discharge patient denied any suicidal or homicidal ideations intent or plan denied any auditory or visual hallucinations. Patient endorsed wanting to live for her health and her family. The patient denied any access to guns or weapons. Patient denied any paranoia and did not endorse any delusions. Patient does not have a significant history of substance abuse and was counseled on abstaining from all substances including alcohol and marijuana. Patient was also counseled on the medications and need for regular compliance and was encouraged to follow-up with their outpatient appointment for mental health and also for primary care. Attempted to get patient into correction however [facility] declined, they offered to have patient seen regularly by ACT team and returned back to her apartment. Guardian on board. Mental status exam: General Appearance: Patient appears to be short stature, white hair, stated age is alert, pleasant, and cooperative. Patient is in no acute distress and has improved hygiene and grooming Behavior: Patient is calmly seated without any agitated behavior. Speech: Patient's speech is fluent and nonpressured. Mood/Affect: Patient reports their mood is "better", affect is congruent and euthymic. Suicidality/Homicidality: Patient denies having any suicidal or homicidal ideation intent or plan. Perceptions: Patient denies any auditory or visual hallucinations. Though content/process: There is no evidence of any delusional thought content and thought process is linear and goal-directed. Memory and concentration: AOX3, grossly intact for the purposes of this session. Can spell "WORLD" backwards correctly. Judgment and insight: Chronically poor, however has improved with guarded prognosis Impression: Schizo affective disorder, Bipolar type Plan: -Continue with discharge today as patient has improved and stabilized psychiatrically and is not currently an imminent threat to self and/or others. Patient will remain at chronically elevated risk for harm to self and/or others due to her chronic mental illness. -Continue medications: Zyprexa 10 mg daily +20 mg nightly for mood stabilization/psychosis. Trazodone 50 mg nightly as needed for sleep. -Patient was counseled on the need for medication compliance and appropriate follow-up at mental health and also primary care for medical issues. Patient verbalized understanding and agreed. -Social work to help coordinate patient's discharge today, she will be returning back home with close follow-up by ACT team through [facility]. Social work also to arrange for patients follow up appointments with [facility] for psychiatric care along with follow up with primary care provider. -Patient counseled on abstaining from recreational drugs and marijuana and alcohol. Was informed/educated on the adverse effects on their physical and mental health. Patient verbally agreed and understood. -Patient was instructed to return to the hospital or seek immediate medical care if their psychiatric or medical symptoms do worsen or reoccur. Allergies Allergy/AdvReac Type Severity Reaction Status Date / Time codeine AdvReac UPSET Verified 03/31/24 12:09 STOMACH nickel AdvReac Unknown Verified 03/31/24 12:09 Laboratory Results WBC 5.3 k/uL (3.8-10.6) 08/08/24 10:21 RBC 3.96 m/uL (3.80-5.40) 08/08/24 10:21 Hgb 12.1 gm/dL (11.4-16.0) 08/08/24 10:21 Hct 34.0 % (34.0-46.0) 08/08/24 10:21 MCV 85.8 fL (80.0-100.0) 08/08/24 10:21 MCH 30.6 pg (25.0-35.0) 08/08/24 10:21 MCHC 35.6 g/dL (31.0-37.0) 08/08/24 10:21 RDW 12.7 % (11.5-15.5) 08/08/24 10:21 Plt Count 234 k/uL (150-450) 08/08/24 10:21 MPV 7.0 08/08/24 10:21 Neutrophils % 75 % 07/20/24 11:03 Lymphocytes % 15 % 07/20/24 11:03 Monocytes % 5 % 07/20/24 11:03 Eosinophils % 2 % 07/20/24 11:03 Basophils % 1 % 07/20/24 11:03 Neutrophils # 4.7 k/uL (1.3-7.7) 07/20/24 11:03 Lymphocytes # 0.9 k/uL (1.0-4.8) L 07/20/24 11:03 Monocytes # 0.3 k/uL (0-1.0) 07/20/24 11:03 Eosinophils # 0.1 k/uL (0-0.7) 07/20/24 11:03 Basophils # 0.1 k/uL (0-0.2) 07/20/24 11:03 PT 15.2 sec (10.0-12.5) H 09/03/24 07:50 INR 1.5 (<1.2) H 09/03/24 07:50 Sodium 136 mmol/L (137-145) L 08/08/24 10:21 Potassium 4.5 mmol/L (3.5-5.1) 08/08/24 10:21 Chloride 103 mmol/L (98-107) 08/08/24 10:21 Carbon Dioxide 25 mmol/L (22-30) 08/08/24 10:21 Anion Gap 8 mmol/L 08/08/24 10:21 BUN 16 mg/dL (7-17) 08/08/24 10:21 Creatinine 0.72 mg/dL (0.52-1.04) 08/08/24 10:21 Est GFR (CKD-EPI)AfAm >90 (>60 ml/min/1.73 sqM) 08/08/24 10:21 Est GFR (CKD-EPI)NonAf >90 (>60 ml/min/1.73 sqM) 08/08/24 10:21 Glucose 173 mg/dL (74-99) H 08/08/24 10:21 POC Glucose (mg/dL) 182 mg/dL (70-110) H 09/03/24 07:36 POC Glu Tube Bender ID Angelica Bailey 09/03/24 07:[address] Glu mg/dL 128 mg/dL 07/20/24 11:03 Hemoglobin A1c 6.1 % (<=6.0) H 07/20/24 11:03 Calcium 9.2 mg/dL (8.4-10.2) 08/08/24 10:21 Total Bilirubin 0.5 mg/dL (0.2-1.3) 08/08/24 10:21 AST 25 U/L (14-36) 08/08/24 10:21 ALT 23 U/L (4-34) 08/08/24 10:21 Alkaline Phosphatase 69 U/L (38-126) 08/08/24 10:21 Total Protein 5.9 g/dL (6.3-8.2) L 08/08/24 10:21 Albumin 3.8 g/dL (3.5-5.0) 08/08/24 10:21 Triglycerides 396.00 mg/dL (0.00-149.00) H 07/20/24 11:03 Cholesterol 221.00 mg/dL (0.00-200.00) H 07/20/24 11:03 LDL Cholesterol, Calc 104.0 mg/dL (0.0-131.0) 07/20/24 11:03 VLDL Cholesterol, Calc 79.20 mg/dL (5.00-40.00) H 07/20/24 11:03 HDL Cholesterol 37.80 mg/dL (40.00-60.00) L 07/20/24 11:03 Cholesterol/HDL Ratio 5.85 Ratio 07/20/24 11:03 TSH 7.240 mIU/L (0.465-4.680) H 07/20/24 11:03 Free T4 1.24 ng/dL (0.78-2.19) 07/21/24 10:45 Influenza Type A (PCR) Not Detected (Not Detectd) 08/01/24 12:00 Influenza Type B (PCR) Not Detected (Not Detectd) 08/01/24 12:00 RSV (PCR) Not Detected (Not Detectd) 08/01/24 12:00 SARS-CoV-2 (PCR) Not Detected (Not Detectd) 08/01/24 12:00 Vital Signs Temp 97.1 F L 09/03/24 08:57 Pulse 104 H 09/03/24 08:57 Resp 20 09/02/24 16:36 BP 106/72 09/03/24 08:57 Pulse Ox 97 09/03/24 08:57 FiO2 Patient Condition at Discharge: Stable Plan - Discharge Summary New Discharge Prescriptions: New Loratadine [Claritin] 10 mg PO DAILY 30 Days #30 tab Losartan [Cozaar] 100 mg PO DAILY 30 Days #60 tab traZODone HCL [Desyrel] 50 mg PO HS PRN 30 Days #30 tab PRN Reason: Insomnia Dapagliflozin Propanediol [Farxiga] 10 mg PO DAILY 30 Days #30 tab metFORMIN HCL [Glucophage] 1,000 mg PO BID 30 Days #120 tab Magnesium Oxide [Mag-Ox] 400 mg PO DAILY 30 Days #30 tab NIFEdipine XL [Procardia XL] 30 mg PO DAILY 30 Days #30 tab Levothyroxine Sodium [Synthroid] 137 mcg PO 0600 30 Days #30 tab OLANZapine [ZyPREXA] 10 mg PO DAILY 30 Days #30 tab OLANZapine [ZyPREXA] 20 mg PO HS 30 Days #30 tablet hydrALAZINE HCL [Apresoline] 100 mg PO BID 30 Days #120 tab carvediloL [Coreg*] 12.5 mg PO BID-W/MEALS 30 Days #60 tab Atorvastatin [Lipitor] 20 mg PO DAILY 30 Days #30 tab Primidone [Mysoline] 25 mg PO HS 30 Days #30 tab Pantoprazole [Protonix] 40 mg PO AC-BRKFST 30 Days #30 tab Ezetimibe [Zetia] 10 mg PO DAILY 30 Days #30 tab Continue Warfarin [Coumadin] 7.5 mg PO SUTUTHSA Ergocalciferol [Vitamin D2 (1250 Mcg = 16392 Iu)] 1,250 mcg PO FR Acetaminophen [Tylenol] 325 mg PO Q4H PRN PRN Reason: Pain Celecoxib [CeleBREX] 200 mg PO DAILY 30 Days #30 cap Rosuvastatin [Crestor] 10 mg PO HS@2100 30 Days #30 tab Warfarin [Coumadin] 10 mg PO MOWEFR Famotidine 20 mg PO DAILY 30 Days #30 tab Discontinued NIFEdipine XL [Procardia XL] 30 mg PO DAILY@1400 hydrALAZINE HCL [Apresoline] 100 mg PO TID@0800,1400,2100 carvediloL [Coreg*] 12.5 mg PO BID@0800,1700 traZODone HCL [Desyrel] 100 mg PO HS@2100 LORazepam [Ativan] 1 mg PO TID@0800,1700,2100 Losartan Potassium 100 mg PO QAM Clotrimazole [Clotrimazole 1% Top Soln] 1 % TOPICAL DIRECTED Furosemide [Lasix] 20 mg PO DAILY Loratadine 10 mg PO DAILY Levothyroxine Sodium [Synthroid] 137 mcg PO DAILY@0600 Fluticasone Nasal [place] [Flonase Nasal [place]] 2 spray EA NOSTRIL QAM Ezetimibe [Zetia] 10 mg PO HS Empagliflozin [Jardiance] 25 mg PO QAM Lurasidone [Latuda] 60 mg PO BID metFORMIN HCL [metFORMIN HCL ER Gastric] 750 mg PO 1700 Insulin Glargine/Lixisenatide [Soliqua 100 Unit-33 Mcg/ml Pen] 1 - 33 unit SQ DIRECTED Potassium Chloride ER [K-Dur 10] 10 meq PO DAILY Discharge Medication List Warfarin [Coumadin] 7.5 mg PO SUTUTHSA 10/25/23 [History] Warfarin [Coumadin] 10 mg PO MOWEFR 10/25/23 [History] Acetaminophen [Tylenol] 325 mg PO Q4H PRN 11/20/23 [History] Ergocalciferol [Vitamin D2 (1250 Mcg = 69507 Iu)] 1,250 mcg PO FR 11/20/23 [History] Atorvastatin [Lipitor] 20 mg PO DAILY 30 Days #30 tab 09/03/24 [Rx] Celecoxib [CeleBREX] 200 mg PO DAILY 30 Days #30 cap 09/03/24 [Rx] Dapagliflozin Propanediol [Farxiga] 10 mg PO DAILY 30 Days #30 tab 09/03/24 [Rx] Ezetimibe [Zetia] 10 mg PO DAILY 30 Days #30 tab 09/03/24 [Rx] Famotidine 20 mg PO DAILY 30 Days #30 tab 09/03/24 [Rx] Levothyroxine Sodium [Synthroid] 137 mcg PO 0600 30 Days #30 tab 09/03/24 [Rx] Loratadine [Claritin] 10 mg PO DAILY 30 Days #30 tab 09/03/24 [Rx] Losartan [Cozaar] 100 mg PO DAILY 30 Days #60 tab 09/03/24 [Rx] Magnesium Oxide [Mag-Ox] 400 mg PO DAILY 30 Days #30 tab 09/03/24 [Rx] NIFEdipine XL [Procardia XL] 30 mg PO DAILY 30 Days #30 tab 09/03/24 [Rx] OLANZapine [ZyPREXA] 10 mg PO DAILY 30 Days #30 tab 09/03/24 [Rx] OLANZapine [ZyPREXA] 20 mg PO HS 30 Days #30 tablet 09/03/24 [Rx] Pantoprazole [Protonix] 40 mg PO AC-BRKFST 30 Days #30 tab 09/03/24 [Rx] Primidone [Mysoline] 25 mg PO HS 30 Days #30 tab 09/03/24 [Rx] Rosuvastatin [Crestor] 10 mg PO HS@2100 30 Days #30 tab 09/03/24 [Rx] carvediloL [Coreg*] 12.5 mg PO BID-W/MEALS 30 Days #60 tab 09/03/24 [Rx] hydrALAZINE HCL [Apresoline] 100 mg PO BID 30 Days #120 tab 09/03/24 [Rx] metFORMIN HCL [Glucophage] 1,000 mg PO BID 30 Days #120 tab 09/03/24 [Rx] traZODone HCL [Desyrel] 50 mg PO HS PRN 30 Days #30 tab 09/03/24 [Rx] Follow up Appointment(s)/Referral(s): [facility] [NON-STAFF] - 1 Week Patient Instructions/Handouts: Schizoaffective Disorder (DC) Activity/Diet/Wound Care/Special Instructions: Avoid the use of street drugs and alcohol. Take all medications as prescribed. When you are in need of refills on your medications, please contact your medical provider and/or outpatient psychiatrist/provider to have this done. Please go to your scheduled outpatient appointment for aftercare treatment. If symptoms return or become worse, call the crisis line at and/or go to the nearest emergency room for evaluation. National Suicide Hotline 989 Discharge Disposition: HOME SELF-CARE
[2024-09-03] MEDS ORDERED: WARFARIN 10 MG TAB PO ONE (18:00)
--- NOTE | 2024-09-07 17:14 | CDI ---
Documentation Clarification Form Date: 09/07/2024 05:04:10 PM From: Shania Jenkins Phone: Admit Date: 07/18/2024 09:55:00 AM Patient Name: Linda Isaac Visit Number: [id number] Discharge Date: 09/03/2024 01:21:00 PM ATTENTION: The Clinical Documentation Specialists (CDI) and [facility] Coding Staff appreciate your assistance in clarifying documentation. Please respond to the clarification below the line at the bottom and electronically sign. The CDI & [facility] Coding staff will review the response and follow-up if needed. Please note: Queries are made part of the Legal Health Record. If you have any questions, please contact the author of this message via ITS. Doctor/Provider: Vinh Victoria The patient does show tremors of the right hand Progress Note 08/07. Please clarify if there is a relationship between the tremors and Prolamin. History/Risk Factors: 64yo F, Schizoaffective disorder, bipolar type, NIDDMII w hyperglycemia, PAF, HTN, HLD, hypothyroidism, medication noncompliance Clinical Indicators: tremors after the increase of Prolamin per The Pt does havetremorsand had experienced tremulousness on Prolixin in the past. She also stated she getstremorswhen she gets electrical impulses from touching anything metallic at the nursing desk. She feels this send impulses to her left knee joint and then to her hands causingtremors. No side effects noted excepttremorsof both hands per 08/10 Progress Note Treatment: Added Cogentin 0.5 mg po bid to address thetremors.1) Please clarify the relationship, if any, which is clinically appropriate for this patient: [ ] Hand tremors are due to Prolamin [ ] Know side effect [ ] Adverse reaction [ ] Hand tremors are not due to Prolamin [ ] Other explanation of clinical findings (please specify) [ X] Unable to determine (no explanation for clinical findings) (Template Last Revised: January 2021) MTDD
== END 2024-09-03 13:21 | disposition home or self-care (01) | DRG 885 ==
LOC: 3MHU 09:55 → UNDOADMIN 10:10 → 3MHU 07-22 18:44
PROVIDERS: ADMIT Psychiatry & Neurology Psychiatry; ATTEND Psychiatry & Neurology Psychiatry
DX: F25.0 Schizoaffective disorder, bipolar type (principal); R45.851 Suicidal ideations; E11.65 Type 2 diabetes mellitus with hyperglycemia; I48.0 Paroxysmal atrial fibrillation; I10 Essential (primary) hypertension; E03.9 Hypothyroidism, unspecified; E78.5 Hyperlipidemia, unspecified; Z79.01 Long term (current) use of anticoagulants; Z91.148 Patient's other noncompliance with medication regimen for other reason; Z79.84 Long term (current) use of oral hypoglycemic drugs; R25.1 Tremor, unspecified; T38.3X6A Underdosing of insulin and oral hypoglycemic [antidiabetic] drugs, initial encounter; T38.1X6A Underdosing of thyroid hormones and substitutes, initial encounter; T45.516A Underdosing of anticoagulants, initial encounter; T46.6X6A Underdosing of antihyperlipidemic and antiarteriosclerotic drugs, initial encounter; T50.1X6A Underdosing of loop [high-ceiling] diuretics, initial encounter; T46.5X6A Underdosing of other antihypertensive drugs, initial encounter; Z79.890 Hormone replacement therapy; Z79.899 Other long term (current) drug therapy
CPT/HCPCS: 51798; 80053; 80061; 83036; 84439; 84443; 85025; 85027; 85610; 87636; 93005; 99285

== ENCOUNTER 2024-10-01 16:20 | Emergency (ER) | payer MEDICAID, MEDICARE ==
--- NOTE | 2024-10-01 17:52 | ED ---
Psych HPI - General Chief Complaint: Psychiatric Symptoms Stated Complaint: petition Time Seen by Provider: 10/01/24 17:52 Source: patient, police, RN notes reviewed, old records reviewed Mode of arrival: ambulatory Limitations: no limitations - History of Present Illness Initial Comments: This is a 64-year-old female to the ER for evaluation patient presents to the emergency room today for evaluation regards to psychiatric illness patient is petitioned by [facility] for psychiatric evaluation currently denying homicidal or suicidal thoughts MD Complaint: altered mental status -: days(s) Associated Psychiatric Symptoms: racing thoughts Quality: constant, getting worse Improves With: none Worsens With: none Treatments Prior to Arrival: placed on mental health hold If Self Harm: admits thoughts of self harm - Related Data Home Medications Medication Instructions Recorded Confirmed Acetaminophen [Tylenol] 325 mg PO Q4H PRN 11/20/23 03/31/24 Ergocalciferol [Vitamin D2 (1250 1,250 mcg PO FR 11/20/23 03/31/24 Mcg = [id number] Iu)] Previous Rx's Medication Instructions Recorded Atorvastatin [Lipitor] 20 mg PO DAILY 30 Days #30 tab 09/03/24 Celecoxib [CeleBREX] 200 mg PO DAILY 30 Days #30 cap 09/03/24 Dapagliflozin Propanediol [Farxiga] 10 mg PO DAILY 30 Days #30 tab 09/03/24 Ezetimibe [Zetia] 10 mg PO DAILY 30 Days #30 tab 09/03/24 Famotidine 20 mg PO DAILY 30 Days #30 tab 09/03/24 Levothyroxine Sodium [Synthroid] 137 mcg PO 0600 30 Days #30 tab 09/03/24 Loratadine [Claritin] 10 mg PO DAILY 30 Days #30 tab 09/03/24 Losartan [Cozaar] 100 mg PO DAILY 30 Days #60 tab 09/03/24 Magnesium Oxide [Mag-Ox] 400 mg PO DAILY 30 Days #30 tab 09/03/24 NIFEdipine XL [Procardia XL] 30 mg PO DAILY 30 Days #30 tab 09/03/24 OLANZapine [ZyPREXA] 10 mg PO DAILY 30 Days #30 tab 09/03/24 OLANZapine [ZyPREXA] 20 mg PO HS 30 Days #30 tablet 09/03/24 Pantoprazole [Protonix] 40 mg PO AC-BRKFST 30 Days #30 tab 09/03/24 Primidone [Mysoline] 25 mg PO HS 30 Days #30 tab 09/03/24 Rosuvastatin [Crestor] 10 mg PO HS@2100 30 Days #30 tab 09/03/24 Warfarin [Coumadin] 7.5 mg PO SUTUTHSA 2 Days #2 tab 09/03/24 Warfarin [Coumadin] 10 mg PO MOWEFR 2 Days #2 tab 09/03/24 carvediloL [Coreg*] 12.5 mg PO BID-W/MEALS 30 Days #60 09/03/24 tab hydrALAZINE HCL [Apresoline] 100 mg PO BID 30 Days #120 tab 09/03/24 metFORMIN HCL [Glucophage] 1,000 mg PO BID 30 Days #120 tab 09/03/24 traZODone HCL [Desyrel] 50 mg PO HS PRN 30 Days #30 tab 09/03/24 Allergies Allergy/AdvReac Type Severity Reaction Status Date / Time codeine AdvReac UPSET Verified 10/01/24 16:42 STOMACH nickel AdvReac Unknown Verified 10/01/24 16:42 Review of Systems ROS Statement: Those systems with pertinent positive or pertinent negative responses have been documented in the HPI. ROS Other: All systems not noted in ROS Statement are negative. Past Medical History Past Medical History: Diabetes Mellitus, GERD/Reflux, Hyperlipidemia, Hypertension, Pneumonia, Sleep Apnea/CPAP/BIPAP, Thyroid Disorder Additional Past Medical History / Comment(s): bleeding with stools,IDDM type II, neuropathy bilateral feet, rheumatic fever at age 11yrs/scar tissue on valve, aortic valve replacement (mechanical), pt states she had a blood clot around aortic valve prior to surgery, POLLO but does not tolerate Cpap, constipation, L ovarian cyst, hypothyroid., states infection left knee. History of Any Multi-Drug Resistant Organisms: None Reported Date of last positivie culture/infection: None MDRO Source:: None Past Surgical History: Appendectomy, Cardiac Valve Replacement, Section, Joint Replacement, Orthopedic Surgery Additional Past Surgical History / Comment(s): BLANCA, aortic valve replacement (mechanical), L total knee arthroplasty, L foot bunionectomy, EGDs, colonoscopy. Past Anesthesia/Blood Transfusion Reactions: Previous Problems w/ Anesthesia Additional Past Anesthesia/Blood Transfusion Reaction / Comment(s): Stopped breathing when a EGD was done-[facility]ise at [facility] not aware but stated "pt stated woke up during during surgery with tube in her throat.". unk family hx and unk blood transfusion Past Psychological History: Anxiety, Bipolar, Depression, PTSD, Schizophrenia Smoking Status: Never smoker Past Alcohol Use History: None Reported Past Drug Use History: None Reported - Past Family History Father Additional Family Medical History / Comment(s): Bipolar and ETOH abuse-[facility] unable to confirm Mother Additional Family Medical History / Comment(s): ETOH abuse.-[facility] unable to confirm General Exam Limitations: no limitations General appearance: alert, in no apparent distress Head exam: Present: atraumatic, normocephalic, normal inspection Eye exam: Present: normal appearance, PERRL, EOMI. Absent: scleral icterus, conjunctival injection, periorbital swelling ENT exam: Present: normal exam, mucous membranes moist Neck exam: Present: normal inspection. Absent: tenderness, meningismus, lymphadenopathy Respiratory exam: Present: normal lung sounds bilaterally. Absent: respiratory distress, wheezes, rales, rhonchi, stridor Cardiovascular Exam: Present: regular rate, normal rhythm, normal heart sounds. Absent: systolic murmur, diastolic murmur, rubs, gallop, clicks GI/Abdominal exam: Present: soft, normal bowel sounds. Absent: distended, tend erness, guarding, rebound, rigid Extremities exam: Present: normal inspection, full ROM, normal capillary refill. Absent: tenderness, pedal edema, joint swelling, calf tenderness Back exam: Present: normal inspection Neurological exam: Present: alert, oriented X3, CN II-XII intact Psychiatric exam: Present: normal affect, normal mood Skin exam: Present: warm, dry, intact, normal color. Absent: rash Course Vital Signs 10/01/24 16:39 Temperature 98.2 F Pulse Rate 77 Respiratory 20 Rate Blood Pressure 161/96 O2 Sat by Pulse 99 Oximetry - Reevaluation(s) Reevaluation #1: 10/01/24 17:55 Medical records reviewed Reevaluation #2: 10/01/24 17:55 Medically cleared for psychiatric evaluation Reevaluation #3: Differential Mental Health Depression, anxiety, bipolar, psychosis, schizophrenia, borderline personality, situational depression, adjustment disorder, behavioral disorder, brain tumor, malingering, substance abuse, encephalopathy, medication reaction, dementia, hypothyroidism, degenerative neurologic disorder, lupus.... This is not meant to be all-inclusive list Medical Decision Making - Medical Decision Making 64 female seen eval by psychiatry here in the ER deemed stable for discharge home - Lab Data Lab Results 10/01/24 Range/Units 18:49 Urine Opiates Screen Not Detected (NotDetected) Ur Oxycodone Screen Not Detected (NotDetected) Urine Methadone Screen Not Detected (NotDetected) Ur Barbiturates Screen Not Detected (NotDetected) U Tricyclic Antidepress Not Detected (NotDetected) Ur Phencyclidine Scrn Not Detected (NotDetected) Ur Amphetamines Screen Not Detected (NotDetected) U Methamphetamines Scrn Not Detected (NotDetected) U Benzodiazepines Scrn Not Detected (NotDetected) Urine Cocaine Screen Not Detected (NotDetected) U Marijuana (THC) Screen Not Detected (NotDetected) Disposition Clinical Impression: Bipolar disorder with psychotic features, Psychosis Disposition: HOME SELF-CARE Condition: Fair Instructions (If sedation given, give patient instructions): Brief Psychotic Disorder (ED) Is patient prescribed a controlled substance at d/c from ED?: No Referrals: None,Stated [Primary Care Provider] - 1-2 days Time of Disposition: 20:00
[2024-10-01 18:04] VITALS: BP 161/96; PULSE 77; RESP 20; TEMP 98.2
[2024-10-01 19:03] LABS: Amphetamine Screen,Urine Not Detected (NotDetected); Barbiturate Screen,Urine Not Detected (NotDetected); Benzodiazepines Screen,Urine Not Detected (NotDetected); Cocaine Screen,Urine Not Detected (NotDetected); Methadone Screen, Urine Not Detected (NotDetected); Opiate Screen,Urine Not Detected (NotDetected); Oxycodone Screen, Urine Not Detected (NotDetected); Phencyclidine Screen,Urine Not Detected (NotDetected); Tricyclic Antidepressant,Urine Not Detected (NotDetected); Urn Cannabinoid Scrn Not Detected (NotDetected)
[2024-10-01] MEDS: traZODone HCL 50 MG TAB PO STA (20:37)
[2024-10-01] MEDS: OLANZapine ODT 10 MG TAB PO STA (20:37)
[2024-10-01 22:56] LABS: Appearance,Urine Cloudy (Clear); Bacteria,Urine Many /hpf; Bilirubin,Urine Negative (Negative); Blood,Urine Trace (Negative); Color,Urine Colorless; Glucose,Urine (UA) Negative (Negative); Ketones,Urine Negative (Negative); Leukocyte Esterase,Urine Moderate (Negative); Nitrite,Urine Positive (Negative); Protein,Urine 2+ (Negative); RBC,Urine 1 /hpf (0-5); Specific Gravity,Urine 1.007 (1.001-1.035); Squamous Epithelial Cell,Urine 1 /hpf (0-4); Urobilinogen,Urine <2.0 mg/dL (<2.0); WBC,Urine 32 /hpf (0-5)
== END 2024-10-01 20:49 | disposition home or self-care (01) ==
LOC: EC 16:20
DX: F31.9 Bipolar disorder, unspecified (principal); F29 Unspecified psychosis not due to a substance or known physiological condition; Z88.5 Allergy status to narcotic agent; Z88.8 Allergy status to other drugs, medicaments and biological substances
CPT/HCPCS: 80306; 81001; 82075; 99285